=== PATIENT | male | born 1950 | race Asian ===

== ENCOUNTER 2022-04-30 16:35 | Emergency (ER) | payer MEDICARE, OTHER ==
--- NOTE | 2022-04-30 17:04 | ED Physician Documentation ---
PD HPI DYSPNEA - Stated complaint Stated Complaint: AMS - Chief complaint Chief Complaint: Neuro - History obtained from History obtained from: Patient, Family (spouse), EMS (The manager privacy report that the clinic told them they are concerned about the patient's low white cell count. They report normal vital signs on the scene and on route. No focal weakness.) - History of Present Illness Timing - onset: How many weeks ago (The patient states he has had general weakness for the last week or 2 with increasing amount. No focal weakness. He was seen a week ago in the clinic and had his losartan and another medicine discontinued. Patient believes there was a concern of kidney function. Seen again today for blood tests.) Timing - onset during: Light activity Timing - duration: Weeks (2) Timing - details: Gradual onset Inciting event(s): No: Out of meds, URI Improved by: Rest. No: Sitting up Worsened by: Exertion. No: Laying flat Associated symptoms: No: Fever, Cough, Wheezing, Bilateral edema Similar symptoms before: Has not had sx before Recently seen: Clinic (Seen at the [facility] a week ago and again today. Reportedly abnormal blood test. No labs or report were sent with the patient with the ambulance nor faxed to us.) Review of Systems Constitutional: denies: Fever, Chills Nose: denies: Rhinorrhea / runny nose, Congestion Throat: denies: Sore throat Cardiac: denies: Chest pain / pressure, Palpitations, Pedal edema Respiratory: reports: Dyspnea. denies: Cough GI: denies: Abdominal Pain, Bloody / black stool PD PAST MEDICAL HISTORY - Past Medical History Past Medical History: Yes Cardiovascular: CO (Patient states stents placed at [facility] approximately 3 months ago without complications. He has not had any chest pain or palpitations. He remains on medications and including Brillante.) Respiratory: None Neuro: None : Retention (needs home self cathing 3 times daily. ) - Past Surgical History Past Surgical History: Yes Cardiovascular: Coronary stent - Present Medications Home Medications: Ambulatory Orders Medication Instructions Recorded Confirmed Aspirin [Justice Aspirin] 81 mg PO DAILY 04/30/22 04/30/22 Atorvastatin [Lipitor] 20 mg PO HS 04/30/22 04/30/22 Fenofibrate Nanocrystallized 145 mg PO DAILY 04/30/22 04/30/22 [Tricor] Insulin Glargine,Hum.rec.anlog 26 units SUBQ DAILY 04/30/22 04/30/22 [Insulin Glargine Solostar] Metoprolol Succinate [Toprol Xl] 25 mg PO BID 04/30/22 04/30/22 Ticagrelor [Brilinta] 90 mg PO BID 04/30/22 04/30/22 cephALEXin [Keflex] 500 mg PO TID #20 cap 04/30/22 metFORMIN [Glucophage] 500 mg PO BID 04/30/22 04/30/22 - Social History Does the pt smoke?: No Smoking Status: Never smoker Does the pt drink ETOH?: No Does the pt have substance abuse?: No PD ED PE NORMAL - Vitals Vital signs reviewed: Yes - General General: Alert and oriented X 3, No acute distress, Well developed/nourished - Neck Neck: Supple, no meningeal sign, No adenopathy - Cardiac Cardiac: RRR, No murmur - Respiratory Respiratory: Clear bilaterally - Abdomen Abdomen: Soft, Non tender, Non distended - Derm Derm: Normal color, Warm and dry - Neuro Neuro: Alert and oriented X 3, No motor deficit, No sensory deficit, Normal speech Results - Vitals Vitals: Vital Signs - 24 hr 04/30/22 04/30/22 04/30/22 16:38 18:09 19:15 Heart Rate 91 88 87 Respiratory 18 14 15 Rate Blood Pressure 110/70 127/70 132/77 H O2 Saturation 100 100 100 Oxygen O2 Source Room air - Labs Labs: Laboratory Tests 04/30/22 04/30/22 04/30/22 17:13 17:13 17:13 WBC 15.8 H RBC 3.98 L Hgb 10.5 L Hct 32.4 L MCV 81.4 MCH 26.4 L MCHC 32.4 RDW 15.3 H Plt Count 412 MPV 10.6 Neut # (Auto) 13.3 H Lymph # (Auto) 1.1 L [place] # (Auto) 1.0 Eos # (Auto) 0.0 Baso # (Auto) 0.0 Absolute Nucleated RBC 0.00 Nucleated RBC % 0.0 Sodium 126 L Potassium 5.1 H Chloride 93 L Carbon Dioxide 23 Anion Gap 10.0 BUN 34 H Creatinine 1.1 Estimated GFR (MDRD) 66 L Glucose 82 Calcium 8.6 Magnesium 2.1 Total Bilirubin 1.3 H AST 27 ALT 17 Alkaline Phosphatase 57 B-Natriuretic Peptide 177 H Total Protein 7.1 Albumin 2.6 L Globulin 4.5 H Albumin/Globulin Ratio 0.6 L Lipase 55 H Urine Color Urine Clarity Urine pH Ur Specific [place] Urine Protein Urine Glucose (UA) Urine Ketones Urine Occult Blood Urine Nitrite Urine Bilirubin Urine Urobilinogen Ur Leukocyte Esterase Urine RBC Urine WBC Ur Squamous Epith Cells Urine Bacteria Ur Microscopic Review Urine Culture Comments Nasal Adenovirus (PCR) Nasal B. parapertussis DNA (PCR) Nasal Coronavir 229E PCR Nasal Coronavir HKU1 PCR Nasal Coronavir NL63 PCR Nasal Coronavir OC43 PCR Nasal Enterovir/Rhinovir PCR Nasal Influenza B PCR Nasal Influenza A PCR Nasal Parainfluen 1 PCR Nasal Parainfluen 2 PCR Nasal Parainfluen 3 PCR Nasal Parainfluen 4 PCR Nasal RSV (PCR) Nasal B.pertussis DNA PCR Nasal C.pneumoniae (PCR) Senait Human Metapneumo PCR Nasal M.pneumoniae (PCR) Nasal SARS-CoV-2 (PCR) Blood Type Blood Type Recheck Antibody Screen 04/30/22 04/30/22 04/30/22 17:13 17:35 17:35 WBC RBC Hgb Hct MCV MCH MCHC RDW Plt Count MPV Neut # (Auto) Lymph # (Auto) [place] # (Auto) Eos # (Auto) Baso # (Auto) Absolute Nucleated RBC Nucleated RBC % Sodium Potassium Chloride Carbon Dioxide Anion Gap BUN Creatinine Estimated GFR (MDRD) Glucose Calcium Magnesium Total Bilirubin AST ALT Alkaline Phosphatase B-Natriuretic Peptide Total Protein Albumin Globulin Albumin/Globulin Ratio Lipase Urine Color YELLOW Urine Clarity CLOUDY Urine pH 6.0 Ur Specific [place] 1.010 Urine Protein TRACE Urine Glucose (UA) NEGATIVE Urine Ketones NEGATIVE Urine Occult Blood TRACE-INTA Urine Nitrite NEGATIVE Urine Bilirubin NEGATIVE Urine Urobilinogen 4 H Ur Leukocyte Esterase MODERATE H Urine RBC 0-5 Urine WBC >25 H Ur Squamous Epith Cells NONE SEEN Urine Bacteria Many H Ur Microscopic Review INDICATED Urine Culture Comments INDICATED Nasal Adenovirus (PCR) NOT DETECTED Nasal B. parapertussis DNA (PCR) NOT DETECTED Nasal Coronavir 229E PCR NOT DETECTED Nasal Coronavir HKU1 PCR NOT DETECTED Nasal Coronavir NL63 PCR NOT DETECTED Nasal Coronavir OC43 PCR NOT DETECTED Nasal Enterovir/Rhinovir PCR NOT DETECTED Nasal Influenza B PCR NOT DETECTED Nasal Influenza A PCR NOT DETECTED Nasal Parainfluen 1 PCR NOT DETECTED Nasal Parainfluen 2 PCR NOT DETECTED Nasal Parainfluen 3 PCR NOT DETECTED Nasal Parainfluen 4 PCR NOT DETECTED Nasal RSV (PCR) NOT DETECTED Nasal B.pertussis DNA PCR NOT DETECTED Nasal C.pneumoniae (PCR) NOT DETECTED Senait Human Metapneumo PCR NOT DETECTED Nasal M.pneumoniae (PCR) NOT DETECTED Nasal SARS-CoV-2 (PCR) NOT DETECTED Blood Type A POSITIVE Blood Type Recheck Antibody Screen NEGATIVE 04/30/22 18:05 WBC RBC Hgb Hct MCV MCH MCHC RDW Plt Count MPV Neut # (Auto) Lymph # (Auto) [place] # (Auto) Eos # (Auto) Baso # (Auto) Absolute Nucleated RBC Nucleated RBC % Sodium Potassium Chloride Carbon Dioxide Anion Gap BUN Creatinine Estimated GFR (MDRD) Glucose Calcium Magnesium Total Bilirubin AST ALT Alkaline Phosphatase B-Natriuretic Peptide Total Protein Albumin Globulin Albumin/Globulin Ratio Lipase Urine Color Urine Clarity Urine pH Ur Specific [place] Urine Protein Urine Glucose (UA) Urine Ketones Urine Occult Blood Urine Nitrite Urine Bilirubin Urine Urobilinogen Ur Leukocyte Esterase Urine RBC Urine WBC Ur Squamous Epith Cells Urine Bacteria Ur Microscopic Review Urine Culture Comments Nasal Adenovirus (PCR) Nasal B. parapertussis DNA (PCR) Nasal Coronavir 229E PCR Nasal Coronavir HKU1 PCR Nasal Coronavir NL63 PCR Nasal Coronavir OC43 PCR Nasal Enterovir/Rhinovir PCR Nasal Influenza B PCR Nasal Influenza A PCR Nasal Parainfluen 1 PCR Nasal Parainfluen 2 PCR Nasal Parainfluen 3 PCR Nasal Parainfluen 4 PCR Nasal RSV (PCR) Nasal B.pertussis DNA PCR Nasal C.pneumoniae (PCR) Senait Human Metapneumo PCR Nasal M.pneumoniae (PCR) Nasal SARS-CoV-2 (PCR) Blood Type Blood Type Recheck A POSITIVE Antibody Screen PD Medical Decision Making - ED course Complexity details: considered differential (General weakness for 1 to 2 weeks. No stigmata of heart failure. Had some test done in the [facility] lab today and referred to the ER. They are now closed and did not send any labs with the patient. No knowing what the abnormalities are. They did not call.), d/w patient Reviewed Lab Results: ordered and reviewed the results of CBC, Chemistry, UA. Leukocytosis noted. Low sodium 126 could account for weakness. Unknown if chronic or not without baseline/trend labs. These are in [facility] database and not accessible right now. UA showing leuks and bacteria, and is cath specimen. Given his weakness, leukocytosis, and the UA, would Dx with UTI. Social Determinants of Health: He lives with , who is able to take care of him. Both he and prefer and want to go home. Departure - Departure Disposition: Home, Self Care Clinical Impression: UTI (urinary tract infection) with pyuria, Hyponatremia, Generalized weakness Leukocytosis, unspecified Qualifiers: Leukocytosis type: unspecified Qualified Code(s): D72.829 - Elevated white blood cell count, unspecified Condition: Stable Record reviewed to determine appropriate education?: Yes Follow-Up: DEEPA CALDERON MD [Primary Care Provider] - Prescriptions: cephALEXin [Keflex] 500 mg PO TID #20 cap Comments: Your blood tests have several minor abnormalities. I am not sure which is the one that the [facility] clinic was concerned about in particular as they did not send any paperwork or call ahead. The test here showed a mild anemia but not significant slightly enough to need treatment in particular. Your white count was elevated that may be suggestive of an infectious process. Your urine test does have some bacteria and white cells. This can be common enough in people who do catheterizations but given your symptoms, I would be concerned for a urinary tract infection. We can treat with cephalexin 3 times daily for a week for this. I sent the script to [facility] pharmacy. The urine culture should result in a couple of days normal call if we need to change the antibiotic choice based on it. Blood tests otherwise here showed somewhat low sodium of 126. This is not necessarily low enough to be too concerned. I do not have a comparison to know whether this is a more of a chronic finding or not. Stay well-hydrated. We did give you some IV fluids with saline (salt water) here that should help some. Otherwise for now continue the current medications you take. Remain off of the ones you had been discontinued last week. Follow-up with your primary care clinic on Tuesday or Tuesday to reevaluate how you are doing. Return to the ER if worsening general symptoms. Your viral panel no swab test has not resulted yet. We will call you with the results if any positives, if it has not resulted by the time you leave. It would not really change therapy at this point but could explain some general we akness if you had a viral illness as well. Discharge Date/Time: 04/30/22 19:29
[2022-04-30 17:20] LABS: BASOPHILS % (AUTO) 0.3 %; EOSINOPHILS % (AUTO) 0.3 %; HCT - HEMATOCRIT 32.4 % (42.0-52.0); HGB - HEMOGLOBIN 10.5 g/dL (14.0-18.0); LYMPHOCYTES # (AUTO) 1.1 10^3/uL (1.5-3.5); MEAN CORPUSCULAR HEMOGLOBIN 26.4 pg (27.0-31.0); MEAN CORPUSCULAR HGB CONC 32.4 g/dL (32.0-36.0); MEAN CORPUSCULAR VOLUME 81.4 fL (80.0-94.0); MEAN PLATELET VOLUME 10.6 fL (7.4-11.4); MONOCYTES % (AUTO) 6.4 %; NEUTROPHILS # (AUTO) 13.3 10^3/uL (1.5-6.6); NEUTROPHILS % (AUTO) 84.5 %; PLT - PLATELET COUNT 412 10^3/uL (130-450); RED BLOOD COUNT 3.98 10^6/uL (4.70-6.10); RED CELL DISTRIBUTION WIDTH 15.3 % (12.0-15.0); WHITE BLOOD COUNT 15.8 x10^3/uL (4.8-10.8)
[2022-04-30 17:34] LABS: ALBUMIN 2.6 g/dL (3.2-5.5); ALBUMIN/GLOBULIN RATIO 0.6 (1.0-2.2); BILIRUBIN,TOTAL 1.3 mg/dL (0.2-1.0); CALCIUM 8.6 mg/dL (8.5-10.3); CREATININE 1.1 mg/dL (0.6-1.2); MAGNESIUM 2.1 mg/dL (1.7-2.8); POTASSIUM 5.1 mmol/L (3.5-5.0); TOTAL PROTEIN 7.1 g/dL (6.7-8.2)
[2022-04-30] MEDS ORDERED: SODIUM CHLORIDE 0.9% 1,000 ML IV STA (17:40)
[2022-04-30 18:07] LABS: BILIRUBIN,URINE NEGATIVE (NEGATIVE); GLUCOSE, URINE (UA) NEGATIVE (NEGATIVE); KETONES,URINE (UA) NEGATIVE (NEGATIVE); LEUKOCYTE ESTERASE, URINE MODERATE (NEGATIVE); NITRITE,URINE NEGATIVE (NEGATIVE); OCCULT BLOOD,URINE TRACE-INTA (NEGATIVE); PROTEIN,URINE TRACE mg/dL (NEGATIVE); UROBILINOGEN,URINE 4 E.U./dL (NORMAL)
--- OUTSIDE RECORDS SUMMARY | 2022-04-30 18:11 | EXTERNAL MEDICAL SUMMARY RPT | Continuity of Care Document ---
:1950 Author Organization [facility] Address [address] [place] [address] Phone Allergies and Intolerances date description facility type (no date) Penicillins [facility] (unknown) (no date) levofloxacin [facility] (unknown) Encounters No information. Functional Status No information. Immunizations No information. Medications No information. Problems date description facility 2022-01-31 23:31 Sepsis, unspecified organism [facility] 2022-01-31 23:36 Sepsis, unspecified organism [facility] 2022-01-31 23:37 Sepsis, unspecified organism [facility] 2022-01-31 23:39 Sepsis, unspecified organism [facility] 2022-02-01 00:30 Sepsis, unspecified organism [facility] 2022-02-01 07:44 Sepsis, unspecified organism [facility] 2022-02-01 10:47 Sepsis, unspecified organism [facility] 2022-02-01 10:58 Sepsis, unspecified organism [facility] 2022-02-01 13:53 Sepsis, unspecified organism [facility] 2022-02-01 13:54 Sepsis, unspecified organism [facility] 2022-02-01 18:07 Sepsis, unspecified organism [facility] spital Procedures No information. Results/Labs test date author facility value unit interpret ation Result panel 1 (unknown) (no date) (unknown) (unknown) (no value) (units (un known) unknown) (unknown) (no date) (unknown) (unknown) 01/31/22 (units (unkn own) unknown) (unknown) (no date) (unknown) (unknown) [id number]units ([address] nown) [address] unknown) (unknown) (no date) (unknown) (unknown) Accession (units (unk nown) Number: unknown) [id number] (unknown) (no date) (unknown) (unknown) Age/Sex: 71 / (units (unknown) M Date of unknown) Service: (unknown) (no date) (unknown) (unknown) [place], [place] (units (unknown) [id number] unknown) (unknown) (no date) (unknown) (unknown) Approved by: (units ( unknown) roberto carlos Andino) Jody on 01/31/2022 at 20:08 (unknown) (no date) (unknown) (unknown) Bones and (units (unk nown) chest wall: No unknown) suspicious bony abnormalities. Soft tissues appear (unknown) (no date) (unknown) (unknown) COMPARISON: (units (u nknown) None. unknown) (unknown) (no date) (unknown) (unknown) : (units (unkn own) 1950 unknown) Acct:[id number] (unknown) (no date) (unknown) (unknown) Dictated by: (units ( unknown) Dwayne Meadows unknown) Jody on 01/31/2022 at 20:08 (unknown) (no date) (unknown) (unknown) FINDINGS: (units (unk nown) unknown) (unknown) (no date) (unknown) (unknown) IMPRESSION: (units (u nknown) Reduced unknown) inspiratory volume, no acute disease when this factor is (unknown) (no date) (unknown) (unknown) INDICATIONS: (units ( unknown) shortness of unknown) breath (unknown) (no date) (unknown) (unknown) [facility]) (unknown) (no date) (unknown) (unknown) Loc: ED (units (unkn own) unknown) (unknown) (no date) (unknown) (unknown) Lungs and (units (unk nown) pleura: Lungs unknown) are clear. No pleural effusions or pneumothorax. (unknown) (no date) (unknown) (unknown) [id number] (units (un known) unknown) (unknown) (no date) (unknown) (unknown) Mediastinum: (units ( unknown) Mediastinal unknown) contours are normal. Heart size is normal. (unknown) (no date) (unknown) (unknown) Ordering (units (unkn own) Provider: unknown) Kyleigh Castellanos MD (unknown) (no date) (unknown) (unknown) PROCEDURE: XR (units (unknown) CHEST 2V unknown) (unknown) (no date) (unknown) (unknown) Patient: (units (unkn own) Josh Padilla unknown) omar Jones MR#: (unknown) (no date) (unknown) (unknown) Procedure: XR (units (unknown) chest 2V unknown) (unknown) (no date) (unknown) (unknown) Signed (units (unkn own) unknown) (unknown) (no date) (unknown) (unknown) Surgical (units (unkn own) changes and unknown) devices: None. (unknown) (no date) (unknown) (unknown) TECHNIQUE: 2 (units ( unknown) views of the unknown) chest were acquired. (unknown) (no date) (unknown) (unknown) XRay Report (units (u nknown) unknown) (unknown) (no date) (unknown) (unknown) account. (units (unkn own) unknown) (unknown) (no date) (unknown) (unknown) taken into (units (un known) unknown) (unknown) (no date) (unknown) (unknown) unremarkable. (units (unknown) unknown) Result panel 2 (unknown) (no (unknown) (unknown) (no value) (units (unk nown) date) unknown) (unknown) (no (unknown) (unknown) 01/31/22 (units (unkno wn) date) unknown) (unknown) (no (unknown) (unknown) [address] [place] [address] (units (unknown) date) unknown) (unknown) (no (unknown) (unknown) ABDOMEN: (units (unkno wn) date) unknown) (unknown) (no (unknown) (unknown) Abdominal Nodes: (units (unknown) date) No retroperitoneal unknown) or mesenteric adenopathy by size criteria. (unknown) (no (unknown) (unknown) Accession Number: (units (unknown) date) [id number] unknown) (unknown) (no (unknown) (unknown) Adrenal Glands: (units (unknown) date) Unremarkable. unknown) (unknown) (no (unknown) (unknown) After the (units (unkn own) date) administration of unknown) intravenous contrast, axial sections acquired from (unknown) (no (unknown) (unknown) Age/Sex: 71 / M (units (unknown) date) Date of Service: unknown) (unknown) (no (unknown) (unknown) [place], [place] (units ( unknown) date) [id number] unknown) (unknown) (no (unknown) (unknown) Approved by: (units (u nknown) date) paola Andino M.D. on 01/31/2022 at 21:25 (unknown) (no (unknown) (unknown) Biliary ducts: (units (unknown) date) Unremarkable. unknown) (unknown) (no (unknown) (unknown) Bladder: (units (unkno wn) date) Unremarkable. unknown) (unknown) (no (unknown) (unknown) Bones: (units (unkno wn) date) Unremarkable. unknown) (unknown) (no (unknown) (unknown) COMPARISON: (units (un known) date) [facility], unknown) CT, CT ABDOMEN PELVIS W CON, 07/05/2019, 14:09. 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 unknown) (unknown) (no (unknown) (unknown) Heart: No (units (unkn own) date) significant unknown) findings. (unknown) (no (unknown) (unknown) Hospital, CT, CT (units (unknown) date) ABDOMEN PELVIS W unknown) CON, 01/27/2018, 13:08. (unknown) (no (unknown) (unknown) IMPRESSION: No (units (unknown) date) abscess found, no unknown) evidence of colitis or diverticulitis, or (unknown) (no (unknown) (unknown) INDICATIONS: abd (units (unknown) date) pain, fever, unknown) developing sepsis (unknown) (no (unknown) (unknown) Image quality: (units (unknown) date) Excellent. unknown) (unknown) (no (unknown) (unknown) [facility] (units (unknown) date) unknown) (unknown) (no (unknown) (unknown) War (units (unkno wn) date) unknown) (unknown) (no (unknown) (unknown) Kidneys and (units (un known) date) Ureters: 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 (unknown) (no (unknown) (unknown) Liver: (units (unkno wn) date) Unremarkable. unknown) (unknown) (no (unknown) (unknown) Loc: ED (units (unkno wn) date) unknown) (unknown) (no (unknown) (unknown) Lung bases: (units (un known) date) Unremarkable. unknown) (unknown) (no (unknown) (unknown) [id number] (units (unk nown) date) unknown) (unknown) (no (unknown) (unknown) Miscellaneous: No (units (unknown) date) hernias are seen. unknown) (unknown) (no (unknown) (unknown) Ordering (units (unkno wn) date) Provider: unknown) Kyleigh Castellanos MD (unknown) (no (unknown) (unknown) PELVIS: (units (unkno wn) date) unknown) (unknown) (no (unknown) (unknown) PROCEDURE: CT (units ( unknown) date) ABDOMEN PELVIS W unknown) CON (unknown) (no (unknown) (unknown) Pancreas: (units (unkn own) date) Unremarkable. unknown) (unknown) (no (unknown) (unknown) Patient: (units (unkno wn) date) [place] unknown) MR#: (unknown) (no (unknown) (unknown) Pelvic Nodes: No (units (unknown) date) enlarged lymph unknown) nodes. (unknown) (no (unknown) (unknown) Pelvic Organs: (units (unknown) date) Unremarkable. unknown) (unknown) (no (unknown) (unknown) Peritoneum: No (units (unknown) date) abnormal unknown) intraperitoneal fluid. No free air. (unknown) (no (unknown) (unknown) Procedure: CT (units ( unknown) date) abdomen pelvis w unknown) con (unknown) (no (unknown) (unknown) Signed (units (unkno wn) date) unknown) (unknown) (no (unknown) (unknown) Spleen: (units (unkno wn) date) Unremarkable. unknown) (unknown) (no (unknown) (unknown) Stomach and (units (un known) date) Bowel: Stomach, unknown) small bowel loops, and colon are unremarkable. (unknown) (no (unknown) (unknown) TECHNIQUE: (units (unk nown) date) unknown) (unknown) (no (unknown) (unknown) The left (units (unkno wn) date) unknown) (unknown) (no (unknown) (unknown) Ventral Wall: No (units (unknown) date) hernias. unknown) (unknown) (no (unknown) (unknown) Vessels: Aorta (units (unknown) date) and inferior vena unknown) cava are normal in size. (unknown) (no (unknown) (unknown) adjustment (units (unk nown) date) unknown) (unknown) (no (unknown) (unknown) and a slight (units (u nknown) date) unknown) (unknown) (no (unknown) (unknown) appendicitis. (units ( unknown) date) unknown) (unknown) (no (unknown) (unknown) bases to the (units (u nknown) date) pubic symphysis. unknown) Coronal and sagittal reformats were performed. (unknown) (no (unknown) (unknown) collecting (units (unk nown) date) unknown) (unknown) (no (unknown) (unknown) degree Mya renal (units (unknown) date) edema. A urinary unknown) tract stone, is not seen on the left. (unknown) (no (unknown) (unknown) hydronephrosis or (units (unknown) date) unknown) (unknown) (no (unknown) (unknown) is not (units (unkno wn) date) unknown) (unknown) (no (unknown) (unknown) kidney (units (unkno wn) date) demonstrates unknown) slight prominence of the central renal collecting system (unknown) (no (unknown) (unknown) of mA and/or kV (units (unknown) date) according to unknown) patient size. (unknown) (no (unknown) (unknown) pigtail (units (unkno wn) date) unknown) (unknown) (no (unknown) (unknown) radiation dose (units (unknown) date) reduction, the unknown) following was used: automated exposure control, (unknown) (no (unknown) (unknown) retained (units (unkno wn) date) calculus. On the unknown) left there is mild prominence of the central renal (unknown) (no (unknown) (unknown) right ureteral (units (unknown) date) stent. There is no unknown) right-sided hydronephrosis or hydroureter. (unknown) (no (unknown) (unknown) seen. (units (unkno wn) date) unknown) (unknown) (no (unknown) (unknown) system but an (units ( unknown) date) obstructive unknown) urinary tract stone more distally within the ureter (unknown) (no (unknown) (unknown) the lung (units (unkno wn) date) unknown) Result panel 3 (unknown) (no date) (unknown) (unknown) 0.2 e.u./dl (unkn own) (unknown) (no date) (unknown) (unknown) 1 (units (unkn own) unknown) (unknown) (no date) (unknown) (unknown) 1.010 (units (unkn own) unknown) (unknown) (no date) (unknown) (unknown) 13.3 g/dl (unkn own) (unknown) (no date) (unknown) (unknown) 14.0 % (unkn own) (unknown) (no date) (unknown) (unknown) 156 x10 3/ul (unkn own) (unknown) (no date) (unknown) (unknown) 2 (units (unkn own) unknown) (unknown) (no date) (unknown) (unknown) 28.5 pg (unkn own) (unknown) (no date) (unknown) (unknown) 29.1 x10 3/ul (unkn own) (unknown) (no date) (unknown) (unknown) 34.8 % (unkn own) (unknown) (no date) (unknown) (unknown) 38.2 % (unkn own) (unknown) (no date) (unknown) (unknown) 4.66 x10 6/ul (unkn own) (unknown) (no date) (unknown) (unknown) 5.0 (units (unkn own) unknown) (unknown) (no date) (unknown) (unknown) 81.8 fl (unkn own) (unknown) (no date) (unknown) (unknown) NEGATIVE (units (unkn own) unknown) (unknown) (no date) (unknown) (unknown) NEGATIVE g/dl (unkn own) (unknown) (no date) (unknown) (unknown) SL CLOUDY (units (unk nown) unknown) (unknown) (no date) (unknown) (unknown) YELLOW (units (unkn own) unknown) (unknown) (no date) (unknown) (unknown) YELLOW (units (unkn own) unknown) Result panel 4 (unknown) (no date) (unknown) (unknown) 0-1/HPF (units (unkn own) unknown) (unknown) (no date) (unknown) (unknown) 0.2 e.u./dl (unkn own) (unknown) (no date) (unknown) (unknown) 1 (units (unkn own) unknown) (unknown) (no date) (unknown) (unknown) 1.010 (units (unkn own) unknown) (unknown) (no date) (unknown) (unknown) 2 (units (unkn own) unknown) (unknown) (no date) (unknown) (unknown) 30-100/HPF (units (un known) unknown) (unknown) (no date) (unknown) (unknown) 5.0 (units (unkn own) unknown) (unknown) (no date) (unknown) (unknown) Many (>30) (units (un known) unknown) (unknown) (no date) (unknown) (unknown) NEGATIVE (units (unkn own) unknown) (unknown) (no date) (unknown) (unknown) NEGATIVE g/dl (unkn own) (unknown) (no date) (unknown) (unknown) None Seen (units (unk nown) unknown) (unknown) (no date) (unknown) (unknown) SL CLOUDY (units (unk nown) unknown) (unknown) (no date) (unknown) (unknown) Specimen (units (unkn own) Cultured unknown) (unknown) (no date) (unknown) (unknown) YELLOW (units (unkn own) unknown) (unknown) (no date) (unknown) (unknown) YELLOW (units (unkn own) unknown) Result panel 5 (unknown) (no date) (unknown) (unknown) 1.2 (units (unkn own) unknown) (unknown) (no date) (unknown) (unknown) 1.60 mg/dl (unkn own) (unknown) (no date) (unknown) (unknown) 13.8 (units (unkn own) unknown) (unknown) (no date) (unknown) (unknown) 135 mmol/l (unkn own) (unknown) (no date) (unknown) (unknown) 16 iu/l (unkn own) (unknown) (no date) (unknown) (unknown) 2.2 mg/dl (unkn own) (unknown) (no date) (unknown) (unknown) 22 mg/dl (unkn own) (unknown) (no date) (unknown) (unknown) 23 mmol/l (unkn own) (unknown) (no date) (unknown) (unknown) 262 mg/dl (unkn own) (unknown) (no date) (unknown) (unknown) 262 mg/dl (unkn own) (unknown) (no date) (unknown) (unknown) 3.0 mmol/l (unkn own) (unknown) (no date) (unknown) (unknown) 3.4 g/dl (unkn own) (unknown) (no date) (unknown) (unknown) 3.6 mmol/l (unkn own) (unknown) (no date) (unknown) (unknown) 31 iu/l (unkn own) (unknown) (no date) (unknown) (unknown) 31 seconds (unkn own) (unknown) (no date) (unknown) (unknown) 31 seconds (unkn own) (unknown) (no date) (unknown) (unknown) 4.2 g/dl (unkn own) (unknown) (no date) (unknown) (unknown) 45 ml/min (unkn own) (unknown) (no date) (unknown) (unknown) 45 ml/min (unkn own) (unknown) (no date) (unknown) (unknown) 59 u/l (unkn own) (unknown) (no date) (unknown) (unknown) 66 u/l (unkn own) (unknown) (no date) (unknown) (unknown) 7.6 g/dl (unkn own) (unknown) (no date) (unknown) (unknown) 8.1 mg/dl (unkn own) (unknown) (no date) (unknown) (unknown) 96 mmol/l (unkn own) (unknown) (no date) (unknown) (unknown) Test not % (unkn own) performed (unknown) (no date) (unknown) (unknown) Test not % (unkn own) performed (unknown) (no date) (unknown) (unknown) Test not ng/ml (unkn own) performed (unknown) (no date) (unknown) (unknown) Test not ng/ml (unkn own) performed Result panel 6 (unknown) (no date) (unknown) (unknown) 1.6 (units unknown) (unknown) (unknown) (no date) (unknown) (unknown) 18.9 seconds (unkn own) (unknown) (no date) (unknown) (unknown) 821 ng/ml (unkn own) (unknown) (no date) (unknown) (unknown) 821 ng/ml (unkn own) Result panel 7 (unknown) (no date) (unknown) (unknown) 4.70 ng/ml (unkn own) (unknown) (no date) (unknown) (unknown) 4.70 ng/ml (unkn own) (unknown) (no date) (unknown) (unknown) 59 u/l (unkn own) (unknown) (no date) (unknown) (unknown) Test not % (unkn own) performed (unknown) (no date) (unknown) (unknown) Test not % (unkn own) performed (unknown) (no date) (unknown) (unknown) Test not ng/ml (unkn own) performed (unknown) (no date) (unknown) (unknown) Test not ng/ml (unkn own) performed Result panel 8 (unknown) (no date) (unknown) (unknown) 0.924 ng/ml (unkn own) (unknown) (no date) (unknown) (unknown) 0.924 ng/ml (unkn own) (unknown) (no date) (unknown) (unknown) 4.70 ng/ml (unkn own) (unknown) (no date) (unknown) (unknown) 4.70 ng/ml (unkn own) (unknown) (no date) (unknown) (unknown) 59 u/l (unkn own) (unknown) (no date) (unknown) (unknown) Test not % (unkn own) performed (unknown) (no date) (unknown) (unknown) Test not % (unkn own) performed (unknown) (no date) (unknown) (unknown) Test not ng/ml (unkn own) performed (unknown) (no date) (unknown) (unknown) Test not ng/ml (unkn own) performed Result panel 9 (unknown) (no date) (unknown) (unknown) 1 (units (unkn own) unknown) (unknown) (no date) (unknown) (unknown) 1.0 % (unkn own) (unknown) (no date) (unknown) (unknown) 100 (units (unkn own) unknown) (unknown) (no date) (unknown) (unknown) 12.0 % (unkn own) (unknown) (no date) (unknown) (unknown) 13.3 g/dl (unkn own) (unknown) (no date) (unknown) (unknown) 14.0 % (unkn own) (unknown) (no date) (unknown) (unknown) 156 x10 3/ul (unkn own) (unknown) (no date) (unknown) (unknown) 13057 /ul (unkn own) (unknown) (no date) (unknown) (unknown) 28.5 pg (unkn own) (unknown) (no date) (unknown) (unknown) 29.1 x10 3/ul (unkn own) (unknown) (no date) (unknown) (unknown) 34.8 % (unkn own) (unknown) (no date) (unknown) (unknown) 38.2 % (unkn own) (unknown) (no date) (unknown) (unknown) 4.66 x10 6/ul (unkn own) (unknown) (no date) (unknown) (unknown) 5.0 % (unkn own) (unknown) (no date) (unknown) (unknown) 81.8 fl (unkn own) (unknown) (no date) (unknown) (unknown) 82.0 % (unkn own) (unknown) (no date) (unknown) (unknown) See Below (units (unk nown) unknown) Result panel 10 (unknown) (no (unknown) (unknown) (no value) (units (unk nown) date) unknown) (unknown) (no (unknown) (unknown) ([place] BCise) (units (unknown) date) unknown) (unknown) (no (unknown) (unknown) 0.4 mg PO DAILY (units (unknown) date) Qty: 60 0RF unknown) (unknown) (no (unknown) (unknown) 10 mg PO DAILY (units (unknown) date) unknown) (unknown) (no (unknown) (unknown) 01/31/22 01/31/22 (units (unknown) date) 01/31/22 unknown) Range/Units (unknown) (no (unknown) (unknown) 01/31/22 19:24 (units (unknown) date) unknown) (unknown) (no (unknown) (unknown) 01/31/22 20:00 (units (unknown) date) unknown) (unknown) (no (unknown) (unknown) 01/31/22 20:02 (units (unknown) date) unknown) (unknown) (no (unknown) (unknown) 01/31/22 20:03 (units (unknown) date) unknown) (unknown) (no (unknown) (unknown) 01/31/22 20:14 (units (unknown) date) unknown) (unknown) (no (unknown) (unknown) 01/31/22 20:28 (units (unknown) date) unknown) (unknown) (no (unknown) (unknown) 01/31/22 (units (unkno wn) date) Range/Units unknown) (unknown) (no (unknown) (unknown) 01/31/22 (units (unkno wn) date) unknown) (unknown) (no (unknown) (unknown) 100 mg PO DAILY (units (unknown) date) unknown) (unknown) (no (unknown) (unknown) 145 mg PO DAILY (units (unknown) date) unknown) (unknown) (no (unknown) (unknown) 19:06 01/31/22 (units (unknown) date) unknown) (unknown) (no (unknown) (unknown) 19:19 01/31/22 (units (unknown) date) unknown) (unknown) (no (unknown) (unknown) 19:20 01/31/22 (units (unknown) date) unknown) (unknown) (no (unknown) (unknown) 19:20 (units (unkno wn) date) unknown) (unknown) (no (unknown) (unknown) 19:30 01/31/22 (units (unknown) date) unknown) (unknown) (no (unknown) (unknown) 19:30 (units (unkno wn) date) unknown) (unknown) (no (unknown) (unknown) 2 mg SUBCUT QWEEK (units (unknown) date) unknown) (unknown) (no (unknown) (unknown) 20:00 01/31/22 (units (unknown) date) unknown) (unknown) (no (unknown) (unknown) 20:00 20:00 20:00 (units (unknown) date) unknown) (unknown) (no (unknown) (unknown) 20:14 (units (unkno wn) date) unknown) (unknown) (no (unknown) (unknown) 20:30 01/31/22 (units (unknown) date) unknown) (unknown) (no (unknown) (unknown) 20:30 (units (unkno wn) date) unknown) (unknown) (no (unknown) (unknown) 20:45 01/31/22 (units (unknown) date) unknown) (unknown) (no (unknown) (unknown) 21:07 (units (unkno wn) date) unknown) (unknown) (no (unknown) (unknown) 21:11 01/31/22 (units (unknown) date) unknown) (unknown) (no (unknown) (unknown) 21:11 (units (unkno wn) date) unknown) (unknown) (no (unknown) (unknown) 26 units subcut (units (unknown) date) DAILY unknown) (unknown) (no (unknown) (unknown) 40 mg PO DAILY (units (unknown) date) unknown) (unknown) (no (unknown) (unknown) 5 mg PO Q4H PRN (units (unknown) date) (Reason: pain) Qty: unknown) 14 0RF (unknown) (no (unknown) (unknown) 50 mg PO DAILY (units (unknown) date) unknown) (unknown) (no (unknown) (unknown) 500 mg PO BID (units ( unknown) date) unknown) (unknown) (no (unknown) (unknown) 71-year-old (units (un known) date) gentleman with unknown) history of hypertension, type 2 diabetes, (unknown) (no (unknown) (unknown) ? 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 (unknown) (no (unknown) (unknown) ABDOMEN: (units (unkno wn) date) unknown) (unknown) (no (unknown) (unknown) ALT (<50) IU/L (units (unknown) date) unknown) (unknown) (no (unknown) (unknown) ALT 16 (<50) IU/L (units (unknown) date) unknown) (unknown) (no (unknown) (unknown) APTT (26-36) (units (u nknown) date) SECONDS unknown) (unknown) (no (unknown) (unknown) APTT 31 (26-36) (units (unknown) date) SECONDS unknown) (unknown) (no (unknown) (unknown) AST (17-59) IU/L (units (unknown) date) unknown) (unknown) (no (unknown) (unknown) AST 31 (17-59) (units (unknown) date) IU/L unknown) (unknown) (no (unknown) (unknown) Abdomen: Mild (units ( unknown) date) distention, diffuse unknown) abdominal pain without rebound or guarding, (unknown) (no (unknown) (unknown) Abdominal Nodes:? (units (unknown) date) No retroperitoneal unknown) or mesenteric adenopathy by size criteria.? (unknown) (no (unknown) (unknown) Acetaminophen (units ( unknown) date) (Acetaminophen 325 unknown) Mg Tablet) 975 mg PO NOW ONE (unknown) (no (unknown) (unknown) Admin: 01/31/22 (units (unknown) date) 20:13 Dose: 200 unknown) mls/hr (unknown) (no (unknown) (unknown) Adrenal Glands:? (units (unknown) date) Unremarkable.? ? unknown) (unknown) (no (unknown) (unknown) Age/Sex: 71 / M (units (unknown) date) unknown) (unknown) (no (unknown) (unknown) Albumin (3.5-5.0) (units (unknown) date) g/dL unknown) (unknown) (no (unknown) (unknown) Albumin 4.2 (units (un known) date) (3.5-5.0) g/dL unknown) (unknown) (no (unknown) (unknown) Albumin/Globulin (units (unknown) date) Ratio (1.0-2.8) unknown) (unknown) (no (unknown) (unknown) Albumin/Globulin (units (unknown) date) Ratio 1.2 (1.0-2.8) unknown) (unknown) (no (unknown) (unknown) Alkaline (units (unkno wn) date) Phosphatase unknown) (38-126) U/L (unknown) (no (unknown) (unknown) Alkaline (units (unkno wn) date) Phosphatase 66 unknown) (38-126) U/L (unknown) (no (unknown) (unknown) Allergies (units (unkn own) date) unknown) (unknown) (no (unknown) (unknown) Allergy/AdvReac (units (unknown) date) Type Severity unknown) Reaction Status Date / Time (unknown) (no (unknown) (unknown) Anisocytosis 1+ H (units (unknown) date) unknown) (unknown) (no (unknown) (unknown) Anisocytosis (units (u nknown) date) unknown) (unknown) (no (unknown) (unknown) BUN (9-20) mg/dL (units (unknown) date) unknown) (unknown) (no (unknown) (unknown) BUN 22 H (9-20) (units (unknown) date) mg/dL unknown) (unknown) (no (unknown) (unknown) BUN/Creatinine (units (unknown) date) Ratio (6-22) unknown) (unknown) (no (unknown) (unknown) BUN/Creatinine (units (unknown) date) Ratio 13.8 (6-22) unknown) (unknown) (no (unknown) (unknown) Band Neutrophils % (units (unknown) date) (3-7) % unknown) (unknown) (no (unknown) (unknown) Band Neutrophils % (units (unknown) date) 12.0 H (3-7) % unknown) (unknown) (no (unknown) (unknown) Baso # (Auto) Not (units (unknown) date) Reportable unknown) (unknown) (no (unknown) (unknown) Baso # (Auto) (units ( unknown) date) unknown) (unknown) (no (unknown) (unknown) Baso % (Auto) Not (units (unknown) date) Reportable unknown) (unknown) (no (unknown) (unknown) Baso % (Auto) (units ( unknown) date) unknown) (unknown) (no (unknown) (unknown) Bedside Urine (units ( unknown) date) Bilirubin - unknown) Negative (unknown) (no (unknown) (unknown) Bedside Urine (units ( unknown) date) Glucose Negative unknown) (unknown) (no (unknown) (unknown) Bedside Urine (units ( unknown) date) Ketone - Negative unknown) (unknown) (no (unknown) (unknown) Bedside Urine (units ( unknown) date) Leukocytes + 70 unknown) (unknown) (no (unknown) (unknown) Bedside Urine (units ( unknown) date) Nitrite - Negative unknown) (unknown) (no (unknown) (unknown) Bedside Urine (units ( unknown) date) Occult Blood +/ unknown) (unknown) (no (unknown) (unknown) Bedside Urine (units ( unknown) date) Protein + 30 unknown) (unknown) (no (unknown) (unknown) Bedside Urine (units ( unknown) date) Urobilinogen - unknown) Negative (unknown) (no (unknown) (unknown) Bedside Urine pH 6 (units (unknown) date) unknown) (unknown) (no (unknown) (unknown) Biliary ducts:? (units (unknown) date) Unremarkable.? ? unknown) (unknown) (no (unknown) (unknown) Bladder:? (units (unkn own) date) Unremarkable.? ? unknown) (unknown) (no (unknown) (unknown) Blood Culture Stat (units (unknown) date) unknown) (unknown) (no (unknown) (unknown) Blood Pressure (units (unknown) date) 127/80 unknown) (unknown) (no (unknown) (unknown) Blood Pressure (units (unknown) date) 132/79 unknown) (unknown) (no (unknown) (unknown) Blood Pressure (units (unknown) date) 134/75 10 unknown) 19:06 (unknown) (no (unknown) (unknown) Blood Pressure (units (unknown) date) 134/75 139/80 unknown) (unknown) (no (unknown) (unknown) Blood Pressure (units (unknown) date) 136/78 unknown) (unknown) (no (unknown) (unknown) Blood Pressure (units (unknown) date) 137/76 unknown) (unknown) (no (unknown) (unknown) Bones and chest (units (unknown) date) wall:? No unknown) suspicious bony abnormalities.? Soft tissues appear (unknown) (no (unknown) (unknown) Bones:? (units (unkno wn) date) Unremarkable.? ? unknown) (unknown) (no (unknown) (unknown) Bydureon BCise 2 (units (unknown) date) mg/0.85 mL unknown) auto-injector (unknown) (no (unknown) (unknown) CK-MB (CK-2) Rel (units (unknown) date) Index TNP unknown) (unknown) (no (unknown) (unknown) CK-MB (CK-2) Rel (units (unknown) date) Index unknown) (unknown) (no (unknown) (unknown) CK-MB (CK-2) TNP (units (unknown) date) unknown) (unknown) (no (unknown) (unknown) CK-MB (CK-2) (units (u nknown) date) unknown) (unknown) (no (unknown) (unknown) CT abdomen pelvis (units (unknown) date) w con Stat unknown) (unknown) (no (unknown) (unknown) CT scan - (units (unkn own) date) abdomen/pelvis: unknown) (unknown) (no (unknown) (unknown) Calcium (8.4-10.2) (units (unknown) date) mg/dL unknown) (unknown) (no (unknown) (unknown) Calcium 8.1 L (units ( unknown) date) (8.4-10.2) mg/dL unknown) (unknown) (no (unknown) (unknown) Carbon Dioxide (units (unknown) date) (22-32) mmol/L unknown) (unknown) (no (unknown) (unknown) Carbon Dioxide 23 (units (unknown) date) (22-32) mmol/L unknown) (unknown) (no (unknown) (unknown) Cardiac: (units (unkno wn) date) Tachycardic without unknown) murmurs (unknown) (no (unknown) (unknown) Ceftriaxone Sodium (units (unknown) date) 2,000 mg/ (Sodium unknown) Chloride) 100 mls @ 200 mls/hr IV NOW ONE (unknown) (no (unknown) (unknown) Chest x-ray: (units (u nknown) date) unknown) (unknown) (no (unknown) (unknown) Chief complaint: (units (unknown) date) Abdominal Pain unknown) (unknown) (no (unknown) (unknown) Chloride (98-107) (units (unknown) date) mmol/L unknown) (unknown) (no (unknown) (unknown) Chloride 96 L (units ( unknown) date) (98-107) mmol/L unknown) (unknown) (no (unknown) (unknown) Jillian Rosales, (units (unknown) date) [Primary Care unknown) Provider] (unknown) (no (unknown) (unknown) Complete Blood (units (unknown) date) Count AUTO DIFF unknown) Stat (unknown) (no (unknown) (unknown) Comprehensive (units ( unknown) date) Metabolic Panel unknown) Stat (unknown) (no (unknown) (unknown) Course (units (unkno wn) date) unknown) (unknown) (no (unknown) (unknown) Creatinine (units (unk nown) date) (0.66-1.25) mg/dL unknown) (unknown) (no (unknown) (unknown) Creatinine 1.60 H (units (unknown) date) (0.66-1.25) mg/dL unknown) (unknown) (no (unknown) (unknown) D Dimer Stat (units (u nknown) date) unknown) (unknown) (no (unknown) (unknown) D-Dimer (<500) (units (unknown) date) ng/ml unknown) (unknown) (no (unknown) (unknown) D-Dimer 821 H (units ( unknown) date) (<500) ng/ml unknown) (unknown) (no (unknown) (unknown) : 1950 (units (unknown) date) Acct:[id number] unknown) (unknown) (no (unknown) (unknown) Date of Service: (units (unknown) date) 01/31/22 unknown) (unknown) (no (unknown) (unknown) Departure (units (unkn own) date) unknown) (unknown) (no (unknown) (unknown) Dictated by: Dwayne (units (unknown) date) Jody Meadows on unknown) 01/31/2022 at 20:08 ? ? (unknown) (no (unknown) (unknown) Dictated by: Dwayne (units (unknown) date) Jody Meadows on unknown) 01/31/2022 at 21:21 ? ? (unknown) (no (unknown) (unknown) Discharge Plan (units (unknown) date) unknown) (unknown) (no (unknown) (unknown) Discontinued (units (u nknown) date) Medications unknown) (unknown) (no (unknown) (unknown) Documented By: NR (units (unknown) date) unknown) (unknown) (no (unknown) (unknown) ECG Data (units (unkno wn) date) unknown) (unknown) (no (unknown) (unknown) ED Orders (units (unkn own) date) unknown) (unknown) (no (unknown) (unknown) EKG-12 Lead Stat (units (unknown) date) unknown) (unknown) (no (unknown) (unknown) ER Physician: (units ( unknown) date) Kyleigh Castellanos MD unknown) (unknown) (no (unknown) (unknown) Emergency Report (units (unknown) date) unknown) (unknown) (no (unknown) (unknown) Eos % (Auto) Not (units (unknown) date) Reportable unknown) (unknown) (no (unknown) (unknown) Eos % (Auto) (units (u nknown) date) unknown) (unknown) (no (unknown) (unknown) Esterase (units (unkno wn) date) unknown) (unknown) (no (unknown) (unknown) Estimated GFR (units ( unknown) date) (>60) mL/min unknown) (unknown) (no (unknown) (unknown) Estimated GFR 45 L (units (unknown) date) (>60) mL/min unknown) (unknown) (no (unknown) (unknown) Exam (units (unkno wn) date) unknown) (unknown) (no (unknown) (unknown) Extremities: No (units (unknown) date) trauma, well unknown) perfused (unknown) (no (unknown) (unknown) FINDINGS:? (units (unk nown) date) unknown) (unknown) (no (unknown) (unknown) Full and (units (unkno wn) date) symmetrical air unknown) movement, no respiratory distress appreciated (unknown) (no (unknown) (unknown) Gallbladder:? (units ( unknown) date) Unremarkable.? ? unknown) (unknown) (no (unknown) (unknown) General (units (unkno wn) date) unknown) (unknown) (no (unknown) (unknown) General: Acutely (units (unknown) date) ill-appearing, unknown) pale, significantly fatigued but will respond (unknown) (no (unknown) (unknown) Globulin (1.7-4.1) (units (unknown) date) g/dL unknown) (unknown) (no (unknown) (unknown) Globulin 3.4 (units (u nknown) date) (1.7-4.1) g/dL unknown) (unknown) (no (unknown) (unknown) Glucose (80-110) (units (unknown) date) mg/dL unknown) (unknown) (no (unknown) (unknown) Glucose 262 H (units ( unknown) date) (80-110) mg/dL unknown) (unknown) (no (unknown) (unknown) HEENT: Moist (units (u nknown) date) mucous membranes, unknown) normal sclera with reactive pupils, (unknown) (no (unknown) (unknown) HPI - General (units ( unknown) date) Adult unknown) (unknown) (no (unknown) (unknown) HPI narrative: (units (unknown) date) unknown) (unknown) (no (unknown) (unknown) Hct (41-53) % (units ( unknown) date) unknown) (unknown) (no (unknown) (unknown) Hct 38.2 L (41-53) (units (unknown) date) % unknown) (unknown) (no (unknown) (unknown) Heart:? No (units (unk nown) date) significant unknown) findings. (unknown) (no (unknown) (unknown) Hgb (13.5-17.5) (units (unknown) date) g/dL unknown) (unknown) (no (unknown) (unknown) Hgb 13.3 L (units (unk nown) date) (13.5-17.5) g/dL unknown) (unknown) (no (unknown) (unknown) History of Present (units (unknown) date) Illness unknown) (unknown) (no (unknown) (unknown) History of kidney (units (unknown) date) stones unknown) (unknown) (no (unknown) (unknown) Home Medications (units (unknown) date) unknown) (unknown) (no (unknown) (unknown) Hyperlipidemia (units (unknown) date) unknown) (unknown) (no (unknown) (unknown) Hypertension (units (u nknown) date) unknown) (unknown) (no (unknown) (unknown) IMPRESSION:? No (units (unknown) date) abscess found, no unknown) evidence of colitis or diverticulitis, or (unknown) (no (unknown) (unknown) IMPRESSION:? (units (u nknown) date) Reduced inspiratory unknown) volume, no acute disease when this factor is (unknown) (no (unknown) (unknown) INR (0.9-1.3) (units ( unknown) date) unknown) (unknown) (no (unknown) (unknown) INR 1.6 H (units (unkn own) date) (0.9-1.3) unknown) (unknown) (no (unknown) (unknown) Image quality:? (units (unknown) date) Excellent.? unknown) (unknown) (no (unknown) (unknown) Imaging Data (units (u nknown) date) unknown) (unknown) (no (unknown) (unknown) Initial Vital (units ( unknown) date) Signs unknown) (unknown) (no (unknown) (unknown) Initial Vital (units ( unknown) date) Signs: unknown) (unknown) (no (unknown) (unknown) Interpretation: (units (unknown) date) unknown) (unknown) (no (unknown) (unknown) [facility] (units (unknown) date) [address] [place] [address] unknown) [place] [address] (unknown) (no (unknown) (unknown) Kidney stones (units ( unknown) date) unknown) (unknown) (no (unknown) (unknown) Kidneys and (units (un known) date) Ureters:? 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 (unknown) (no (unknown) (unknown) Lab Data (units (unkno wn) date) unknown) (unknown) (no (unknown) (unknown) Lab Results (units (un known) date) unknown) (unknown) (no (unknown) (unknown) Label Comments: (units (unknown) date) unknown) (unknown) (no (unknown) (unknown) Labs: (units (unkno wn) date) unknown) (unknown) (no (unknown) (unknown) Lactate (0.7-2.1) (units (unknown) date) mmol/L unknown) (unknown) (no (unknown) (unknown) Lactate (Lactic (units (unknown) date) Acid) Stat unknown) (unknown) (no (unknown) (unknown) Lactate 3.0 H (units ( unknown) date) (0.7-2.1) mmol/L unknown) (unknown) (no (unknown) (unknown) Last Admin: (units (un known) date) 01/31/22 20:17 unknown) Dose: 100 mls/hr (unknown) (no (unknown) (unknown) Last Admin: (units (un known) date) 01/31/22 20:17 unknown) Dose: 920.79 mls/hr (unknown) (no (unknown) (unknown) Last Infusion: (units (unknown) date) 01/31/22 21:10 unknown) Dose: 0 mls/hr (unknown) (no (unknown) (unknown) Left axis (units (unkn own) date) deviation unknown) (unknown) (no (unknown) (unknown) Liver:? (units (unkno wn) date) Unremarkable.? ? unknown) (unknown) (no (unknown) (unknown) Lung bases:? (units (u nknown) date) Unremarkable. unknown) (unknown) (no (unknown) (unknown) Lungs and pleura:? (units (unknown) date) Lungs are clear.? unknown) No pleural effusions or pneumothorax.? (unknown) (no (unknown) (unknown) Lymph # (Auto) Not (units (unknown) date) Reportable unknown) (unknown) (no (unknown) (unknown) Lymph # (Auto) (units (unknown) date) unknown) (unknown) (no (unknown) (unknown) Lymph % (Auto) Not (units (unknown) date) Reportable unknown) (unknown) (no (unknown) (unknown) Lymph % (Auto) (units (unknown) date) unknown) (unknown) (no (unknown) (unknown) Lymphocytes % (units ( unknown) date) (Manual) (25-45) % unknown) (unknown) (no (unknown) (unknown) Lymphocytes % (units ( unknown) date) (Manual) 5.0 L unknown) (25-45) % (unknown) (no (unknown) (unknown) [id number] (units (unk nown) date) unknown) (unknown) (no (unknown) (unknown) MCH (26-34) PG (units (unknown) date) unknown) (unknown) (no (unknown) (unknown) MCH 28.5 (26-34) (units (unknown) date) PG unknown) (unknown) (no (unknown) (unknown) MCHC (30-36) % (units (unknown) date) unknown) (unknown) (no (unknown) (unknown) MCHC 34.8 (30-36) (units (unknown) date) % unknown) (unknown) (no (unknown) (unknown) MCV (80-100) fL (units (unknown) date) unknown) (unknown) (no (unknown) (unknown) MCV 81.8 (80-100) (units (unknown) date) fL unknown) (unknown) (no (unknown) (unknown) Measure peak (units (u nknown) date) expiratory flow unknown) ONCE (unknown) (no (unknown) (unknown) Mediastinum:? (units ( unknown) date) Mediastinal unknown) contours are normal.? Heart size is normal.? (unknown) (no (unknown) (unknown) Medical Decision (units (unknown) date) Making unknown) (unknown) (no (unknown) (unknown) Medical History (units (unknown) date) (Updated 01/31/22 @ unknown) 21:46 by Kyleigh Castellanos MD) (unknown) (no (unknown) (unknown) Medication (units (unk nown) date) Instructions unknown) Recorded Confirmed (unknown) (no (unknown) (unknown) Medication (units (unk nown) date) Instructions unknown) Recorded (unknown) (no (unknown) (unknown) Metronidazole (units ( unknown) date) (Flagyl) 500 mg in unknown) 100 mls @ 100 mls/hr IV NOW ONE (unknown) (no (unknown) (unknown) Miscellaneous: No (units (unknown) date) hernias are seen. ? unknown) ? (unknown) (no (unknown) (unknown) [place] # (Auto) Not (units (unknown) date) Reportable unknown) (unknown) (no (unknown) (unknown) [place] # (Auto) (units ( unknown) date) unknown) (unknown) (no (unknown) (unknown) [place] % (Auto) Not (units (unknown) date) Reportable unknown) (unknown) (no (unknown) (unknown) [place] % (Auto) (units ( unknown) date) unknown) (unknown) (no (unknown) (unknown) Monocytes % (units (un known) date) (Manual) (2-11) % unknown) (unknown) (no (unknown) (unknown) Monocytes % (units (un known) date) (Manual) 1.0 L unknown) (2-11) % (unknown) (no (unknown) (unknown) Narrative: (units (unk nown) date) unknown) (unknown) (no (unknown) (unknown) Neck: No JVD, (units ( unknown) date) supple unknown) (unknown) (no (unknown) (unknown) Neurologic: (units (un known) date) Globally weak but unknown) Grossly neurologically intact with no obvious (unknown) (no (unknown) (unknown) Neut % (Auto) Not (units (unknown) date) Reportable unknown) (unknown) (no (unknown) (unknown) Neut % (Auto) (units ( unknown) date) unknown) (unknown) (no (unknown) (unknown) Neutrophils # (units ( unknown) date) (Manual) unknown) ([id number]) /uL (unknown) (no (unknown) (unknown) Neutrophils # (units ( unknown) date) (Manual) [id number] H unknown) ([id number]) /uL (unknown) (no (unknown) (unknown) No Action (units (unkn own) date) unknown) (unknown) (no (unknown) (unknown) Ordered: (units (unkno wn) date) unknown) (unknown) (no (unknown) (unknown) Orders (units (unkno wn) date) unknown) (unknown) (no (unknown) (unknown) Oxygen Delivery (units (unknown) date) Method 01/31/22 unknown) 19:06 (unknown) (no (unknown) (unknown) Oxygen Delivery (units (unknown) date) Method Room Air unknown) Room Air (unknown) (no (unknown) (unknown) Oxygen Delivery (units (unknown) date) Method unknown) (unknown) (no (unknown) (unknown) PELVIS: (units (unkno wn) date) unknown) (unknown) (no (unknown) (unknown) PT (10.1-12.7) (units (unknown) date) SECONDS unknown) (unknown) (no (unknown) (unknown) PT 18.9 H (units (unkn own) date) (10.1-12.7) SECONDS unknown) (unknown) (no (unknown) (unknown) Pancreas:? (units (unk nown) date) Unremarkable.? ? unknown) (unknown) (no (unknown) (unknown) Partial (units (unkno wn) date) Thromboplastin Time unknown) Stat (unknown) (no (unknown) (unknown) Patient History (units (unknown) date) unknown) (unknown) (no (unknown) (unknown) Patient: (units (unkno wn) date) Pascual Padilla unknown) MR#: (unknown) (no (unknown) (unknown) Pelvic Nodes: No (units (unknown) date) enlarged lymph unknown) nodes.? (unknown) (no (unknown) (unknown) Pelvic Organs:? (units (unknown) date) Unremarkable.? ? unknown) (unknown) (no (unknown) (unknown) Penicillins (units (un known) date) Allergy Rash unknown) Verified 01/31/22 19:12 (unknown) (no (unknown) (unknown) Peritoneum:? No (units (unknown) date) abnormal unknown) intraperitoneal fluid.? No free air.? (unknown) (no (unknown) (unknown) Plt Count (units (unkn own) date) (150-400) X103/uL unknown) (unknown) (no (unknown) (unknown) Plt Count 156 (units ( unknown) date) (150-400) X103/uL unknown) (unknown) (no (unknown) (unknown) Point of care (units ( unknown) date) testing: unknown) (unknown) (no (unknown) (unknown) Potassium (units (unkn own) date) (3.4-5.1) mmol/L unknown) (unknown) (no (unknown) (unknown) Potassium 3.6 (units ( unknown) date) (3.4-5.1) mmol/L unknown) (unknown) (no (unknown) (unknown) Prescriptions: (units (unknown) date) unknown) (unknown) (no (unknown) (unknown) Previous Rx's (units ( unknown) date) unknown) (unknown) (no (unknown) (unknown) Procalcitonin (units ( unknown) date) (<0.5) ng/mL unknown) (unknown) (no (unknown) (unknown) Procalcitonin 4.70 (units (unknown) date) H (<0.5) ng/mL unknown) (unknown) (no (unknown) (unknown) Procalcitonin Stat (units (unknown) date) unknown) (unknown) (no (unknown) (unknown) Prothrombin Time (units (unknown) date) INR Stat unknown) (unknown) (no (unknown) (unknown) Psych: (units (unkno wn) date) Cooperative, unknown) significant fatigue (unknown) (no (unknown) (unknown) Pulse Oximetry 97 (units (unknown) date) 96 unknown) (unknown) (no (unknown) (unknown) Pulse Oximetry 98 (units (unknown) date) 01/31/22 19:06 unknown) (unknown) (no (unknown) (unknown) Pulse Oximetry 98 (units (unknown) date) 95 unknown) (unknown) (no (unknown) (unknown) Pulse Oximetry 98 (units (unknown) date) 97 unknown) (unknown) (no (unknown) (unknown) Pulse Oximetry 99 (units (unknown) date) unknown) (unknown) (no (unknown) (unknown) Pulse Rate 117 H (units (unknown) date) 01/31/22 19:06 unknown) (unknown) (no (unknown) (unknown) Pulse Rate 117 H (units (unknown) date) 124 H unknown) (unknown) (no (unknown) (unknown) Pulse Rate 118 H (units (unknown) date) 67 unknown) (unknown) (no (unknown) (unknown) Pulse Rate 119 H (units (unknown) date) 120 H unknown) (unknown) (no (unknown) (unknown) Pulse Rate 122 H (units (unknown) date) 116 H unknown) (unknown) (no (unknown) (unknown) Pulse Rate 122 H (units (unknown) date) unknown) (unknown) (no (unknown) (unknown) QTC prolonged at (units (unknown) date) 583 milliseconds unknown) (unknown) (no (unknown) (unknown) RBC (4.5-5.9) (units ( unknown) date) X106/uL unknown) (unknown) (no (unknown) (unknown) RBC 4.66 (4.5-5.9) (units (unknown) date) X106/uL unknown) (unknown) (no (unknown) (unknown) RBC Morphology See (units (unknown) date) below unknown) (unknown) (no (unknown) (unknown) RBC Morphology (units (unknown) date) unknown) (unknown) (no (unknown) (unknown) RDW (11.6-14.8) % (units (unknown) date) unknown) (unknown) (no (unknown) (unknown) RDW 14.0 (units (unkno wn) date) (11.6-14.8) % unknown) (unknown) (no (unknown) (unknown) RT Consult Eval (units (unknown) date) and Treat Now unknown) (unknown) (no (unknown) (unknown) Radiologist's (units ( unknown) date) Impression: unknown) (unknown) (no (unknown) (unknown) Referrals: (units (unk nown) date) unknown) (unknown) (no (unknown) (unknown) Related Data (units (u nknown) date) unknown) (unknown) (no (unknown) (unknown) Remainder of (units (u nknown) date) complete review of unknown) systems is otherwise unremarkable except for (unknown) (no (unknown) (unknown) Respiratory Rate (units (unknown) date) 30 H unknown) (unknown) (no (unknown) (unknown) Respiratory Rate (units (unknown) date) 31 H unknown) (unknown) (no (unknown) (unknown) Respiratory Rate (units (unknown) date) 35 H 01/31/22 19:06 unknown) (unknown) (no (unknown) (unknown) Respiratory Rate (units (unknown) date) 35 H unknown) (unknown) (no (unknown) (unknown) Respiratory Rate (units (unknown) date) 39 H 41 H unknown) (unknown) (no (unknown) (unknown) Respiratory Rate (units (unknown) date) 43 H unknown) (unknown) (no (unknown) (unknown) Respiratory: Lungs (units (unknown) date) are clear to unknown) auscultation, no wheezing no rales no rhonchi. (unknown) (no (unknown) (unknown) Result diagrams: (units (unknown) date) unknown) (unknown) (no (unknown) (unknown) Review of Systems (units (unknown) date) unknown) (unknown) (no (unknown) (unknown) Seg Neutrophils % (units (unknown) date) (38-70) % unknown) (unknown) (no (unknown) (unknown) Seg Neutrophils % (units (unknown) date) 82.0 H (38-70) % unknown) (unknown) (no (unknown) (unknown) Signed By: (units (unk nown) date) unknown) (unknown) (no (unknown) (unknown) Sinus tachycardia (units (unknown) date) at a rate of 116 unknown) (unknown) (no (unknown) (unknown) Skin: Pale but (units (unknown) date) otherwise Warm and unknown) dry, no rashes (unknown) (no (unknown) (unknown) Smoking Status: (units (unknown) date) Never smoker unknown) (unknown) (no (unknown) (unknown) Social History (units (unknown) date) (Reviewed 01/31/22 unknown) @ 21:45 by Kyleigh Castellanos MD) (unknown) (no (unknown) (unknown) Sodium (137-145) (units (unknown) date) mmol/L unknown) (unknown) (no (unknown) (unknown) Sodium 135 L (units (u nknown) date) (137-145) mmol/L unknown) (unknown) (no (unknown) (unknown) Sodium Chloride (units (unknown) date) (Normal Saline unknown) 0.9%) 2,762.37 mls @ 920.79 mls/hr 30 ml/kg (unknown) (no (unknown) (unknown) Spleen:? (units (unkno wn) date) Unremarkable.? ? unknown) (unknown) (no (unknown) (unknown) Stated complaint: (units (unknown) date) Vomiting, Stomach unknown) cramps, SOB (unknown) (no (unknown) (unknown) Stomach and (units (un known) date) Bowel:? Stomach, unknown) small bowel loops, and colon are unremarkable.? (unknown) (no (unknown) (unknown) Stop: 01/31/22 (units (unknown) date) 20:06 unknown) (unknown) (no (unknown) (unknown) Stop: 01/31/22 (units (unknown) date) 21:04 unknown) (unknown) (no (unknown) (unknown) Stop: 01/31/22 (units (unknown) date) 21:42 unknown) (unknown) (no (unknown) (unknown) Stop: 01/31/22 (units (unknown) date) 23:01 unknown) (unknown) (no (unknown) (unknown) Substance Use (units ( unknown) date) Type: does not use unknown) (unknown) (no (unknown) (unknown) Subtle lateral ST (units (unknown) date) depression unknown) (unknown) (no (unknown) (unknown) Surgical changes (units (unknown) date) and devices:? unknown) None.? (unknown) (no (unknown) (unknown) Temperature 98.3 F (units (unknown) date) 01/31/22 19:06 unknown) (unknown) (no (unknown) (unknown) Temperature 98.3 F (units (unknown) date) unknown) (unknown) (no (unknown) (unknown) Temperature (units (un known) date) unknown) (unknown) (no (unknown) (unknown) The left (units (unkno wn) date) unknown) (unknown) (no (unknown) (unknown) Time Seen by (units (u nknown) date) Provider: 01/31/22 unknown) 19:43 (unknown) (no (unknown) (unknown) Total Bilirubin (units (unknown) date) (0.2-1.3) mg/dL unknown) (unknown) (no (unknown) (unknown) Total Bilirubin (units (unknown) date) 2.2 H (0.2-1.3) unknown) mg/dL (unknown) (no (unknown) (unknown) Total Counted 100 (units (unknown) date) unknown) (unknown) (no (unknown) (unknown) Total Counted (units ( unknown) date) unknown) (unknown) (no (unknown) (unknown) Total Creatine (units (unknown) date) Kinase (55-170) U/L unknown) (unknown) (no (unknown) (unknown) Total Creatine (units (unknown) date) Kinase 59 (55-170) unknown) U/L (unknown) (no (unknown) (unknown) Total Protein (units ( unknown) date) (6.3-8.2) g/dL unknown) (unknown) (no (unknown) (unknown) Total Protein 7.6 (units (unknown) date) (6.3-8.2) g/dL unknown) (unknown) (no (unknown) (unknown) Troponin + CK (units ( unknown) date) Cardiac Panel Stat unknown) (unknown) (no (unknown) (unknown) Troponin I (units (unk nown) date) (0.01-0.034) ng/mL unknown) (unknown) (no (unknown) (unknown) Troponin I 0.924 (units (unknown) date) H* (0.01-0.034) unknown) ng/mL (unknown) (no (unknown) (unknown) Type 2 diabetes (units (unknown) date) mellitus unknown) (unknown) (no (unknown) (unknown) Ur Culture (units (unk nown) date) Indicated? Specimen unknown) cultured (unknown) (no (unknown) (unknown) Ur Culture (units (unk nown) date) Indicated? unknown) (unknown) (no (unknown) (unknown) Ur Leukocyte (units (u nknown) date) Esterase (NEGATIVE) unknown) (unknown) (no (unknown) (unknown) Ur Leukocyte (units (u nknown) date) Esterase 2+ H unknown) (NEGATIVE) (unknown) (no (unknown) (unknown) Ur Specific (units (un known) date) [place] unknown) (1.000-1.035) (unknown) (no (unknown) (unknown) Ur Specific (units (un known) date) [place] 1.010 unknown) (1.000-1.035) (unknown) (no (unknown) (unknown) Ur Squamous Epith (units (unknown) date) Cells (0-5/HPF) unknown) (unknown) (no (unknown) (unknown) Ur Squamous Epith (units (unknown) date) Cells None seen unknown) (0-5/HPF) (unknown) (no (unknown) (unknown) Urinalysis and (units (unknown) date) Microscopic Stat unknown) (unknown) (no (unknown) (unknown) Urine Appearance (units (unknown) date) Sl cloudy unknown) (unknown) (no (unknown) (unknown) Urine Appearance (units (unknown) date) unknown) (unknown) (no (unknown) (unknown) Urine Bacteria (units (unknown) date) (None) unknown) (unknown) (no (unknown) (unknown) Urine Bacteria (units (unknown) date) Many (>30) H (None) unknown) (unknown) (no (unknown) (unknown) Urine Bilirubin (units (unknown) date) (NEGATIVE) unknown) (unknown) (no (unknown) (unknown) Urine Bilirubin (units (unknown) date) Negative (NEGATIVE) unknown) (unknown) (no (unknown) (unknown) Urine Color Yellow (units (unknown) date) unknown) (unknown) (no (unknown) (unknown) Urine Color (units (un known) date) unknown) (unknown) (no (unknown) (unknown) Urine Culture Stat (units (unknown) date) unknown) (unknown) (no (unknown) (unknown) Urine Dip (units (unkn own) date) unknown) (unknown) (no (unknown) (unknown) Urine Glucose (UA) (units (unknown) date) (Negative) g/dL unknown) (unknown) (no (unknown) (unknown) Urine Glucose (UA) (units (unknown) date) Negative (Negative) unknown) g/dL (unknown) (no (unknown) (unknown) Urine Ketones (units ( unknown) date) (NEGATIVE) unknown) (unknown) (no (unknown) (unknown) Urine Ketones (units ( unknown) date) Negative (NEGATIVE) unknown) (unknown) (no (unknown) (unknown) Urine Nitrate (units ( unknown) date) (Negative) unknown) (unknown) (no (unknown) (unknown) Urine Nitrate (units ( unknown) date) Negative (Negative) unknown) (unknown) (no (unknown) (unknown) Urine Occult Blood (units (unknown) date) (Negative) unknown) (unknown) (no (unknown) (unknown) Urine Occult Blood (units (unknown) date) 1+ H (Negative) unknown) (unknown) (no (unknown) (unknown) Urine Protein (units ( unknown) date) (Negative) unknown) (unknown) (no (unknown) (unknown) Urine Protein 1+ H (units (unknown) date) (Negative) unknown) (unknown) (no (unknown) (unknown) Urine RBC (units (unkn own) date) (0-5/HPF) unknown) (unknown) (no (unknown) (unknown) Urine RBC 0-1/hpf (units (unknown) date) (0-5/HPF) unknown) (unknown) (no (unknown) (unknown) Urine Specific (units (unknown) date) [place] 1.02 unknown) (unknown) (no (unknown) (unknown) Urine Urobilinogen (units (unknown) date) (0.2) E.U./dL unknown) (unknown) (no (unknown) (unknown) Urine Urobilinogen (units (unknown) date) 0.2 (0.2) E.U./dL unknown) (unknown) (no (unknown) (unknown) Urine WBC (units (unkn own) date) (0-5/HPF) unknown) (unknown) (no (unknown) (unknown) Urine WBC (units (unkn own) date) 30-100/hpf H unknown) (0-5/HPF) (unknown) (no (unknown) (unknown) Urine pH (4.5-8.0) (units (unknown) date) unknown) (unknown) (no (unknown) (unknown) Urine pH 5.0 (units (u nknown) date) (4.5-8.0) unknown) (unknown) (no (unknown) (unknown) Ventral Wall: ? No (units (unknown) date) hernias.? unknown) (unknown) (no (unknown) (unknown) Vessels:? Aorta (units (unknown) date) and inferior vena unknown) cava are normal in size.? (unknown) (no (unknown) (unknown) Vital Signs - 8 hr (units (unknown) date) unknown) (unknown) (no (unknown) (unknown) Vital Signs (units (un known) date) unknown) (unknown) (no (unknown) (unknown) Vital signs: (units (u nknown) date) unknown) (unknown) (no (unknown) (unknown) WBC (4.5-11.0) (units (unknown) date) X103/uL unknown) (unknown) (no (unknown) (unknown) WBC 29.1 H (units (unk nown) date) (4.5-11.0) X103/uL unknown) (unknown) (no (unknown) (unknown) XR chest 2V Stat (units (unknown) date) unknown) (unknown) (no (unknown) (unknown) [Embedded Image (units (unknown) date) Not Available] unknown) (unknown) (no (unknown) (unknown) a incontinence (units (unknown) date) pad. He has not unknown) been having any diarrhea or constipation. He (unknown) (no (unknown) (unknown) a slight (units (unkno wn) date) unknown) (unknown) (no (unknown) (unknown) account. (units (unkno wn) date) unknown) (unknown) (no (unknown) (unknown) alcohol intake (units (unknown) date) frequency: unknown) holidays/special occasions only (unknown) (no (unknown) (unknown) alcohol intake: (units (unknown) date) current unknown) (unknown) (no (unknown) (unknown) amlodipine 10 mg (units (unknown) date) tablet 10 mg PO unknown) DAILY 01/27/18 07/13/19 (unknown) (no (unknown) (unknown) amlodipine 10 mg (units (unknown) date) tablet unknown) (unknown) (no (unknown) (unknown) any significant (units (unknown) date) cough, chest pain, unknown) palpitations, lower extremity edema. He (unknown) (no (unknown) (unknown) appendicitis. (units ( unknown) date) unknown) (unknown) (no (unknown) (unknown) asymmetries or (units (unknown) date) abnormalities unknown) (unknown) (no (unknown) (unknown) been significantly (units (unknown) date) fatigued but is unknown) otherwise cognitively intact. (unknown) (no (unknown) (unknown) chlorthalidone 50 (units (unknown) date) mg tablet 50 mg PO unknown) DAILY 01/27/18 07/13/19 (unknown) (no (unknown) (unknown) chlorthalidone 50 (units (unknown) date) mg tablet unknown) (unknown) (no (unknown) (unknown) collecting (units (unk nown) date) unknown) (unknown) (no (unknown) (unknown) degree Mya renal (units (unknown) date) edema.? A urinary unknown) tract stone, is not seen on the left. (unknown) (no (unknown) (unknown) exenatide (units (unkn own) date) microspheres 2 unknown) mg/0.85 2 mg SUBCUT QWEEK 07/05/19 07/13/19 (unknown) (no (unknown) (unknown) fatigue, overall (units (unknown) date) altered mental unknown) status, increasing abdominal pain. He denies (unknown) (no (unknown) (unknown) fenofibrate (units (un known) date) nanocrystallized unknown) 145 145 mg PO DAILY 07/05/19 07/13/19 (unknown) (no (unknown) (unknown) fenofibrate (units (un known) date) nanocrystallized unknown) 145 mg tablet (unknown) (no (unknown) (unknown) has been passing (units (unknown) date) gas. Reports no unknown) significant headache. They report that he has (unknown) (no (unknown) (unknown) household members: (units (unknown) date) spouse unknown) (unknown) (no (unknown) (unknown) hydronephrosis or (units (unknown) date) unknown) (unknown) (no (unknown) (unknown) hyperlipidemia, (units (unknown) date) prior kidney stones unknown) presents with 12 hours of increasing fevers, (unknown) (no (unknown) (unknown) infuse over 3 hr (units (unknown) date) (2762.37 ml) IV NOW unknown) ONE (unknown) (no (unknown) (unknown) insulin glargine (units (unknown) date) 100 unit/mL (3 26 unknown) units SUBCUT DAILY 01/27/18 07/13/19 (unknown) (no (unknown) (unknown) insulin glargine (units (unknown) date) 100 unit/mL (3 mL) unknown) insulin pen (unknown) (no (unknown) (unknown) kidney demonstrates (units (unknown) date) slight prominence unknown) of the central renal collecting system and (unknown) (no (unknown) (unknown) levofloxacin [From (units (unknown) date) Levaquin] Allergy unknown) Rash Verified 01/31/22 19:12 (unknown) (no (unknown) (unknown) losartan 100 mg (units (unknown) date) tablet 100 mg PO unknown) DAILY 01/27/18 07/13/19 (unknown) (no (unknown) (unknown) losartan 100 mg (units (unknown) date) tablet unknown) (unknown) (no (unknown) (unknown) mL subcutaneous (units (unknown) date) auto-injector unknown) (unknown) (no (unknown) (unknown) mL) subcutaneous (units (unknown) date) pen unknown) (unknown) (no (unknown) (unknown) metformin 500 mg (units (unknown) date) tablet 500 mg PO unknown) BID 01/27/18 07/13/19 (unknown) (no (unknown) (unknown) metformin 500 mg (units (unknown) date) tablet unknown) (unknown) (no (unknown) (unknown) mg tablet (units (unkn own) date) unknown) (unknown) (no (unknown) (unknown) mondays (units (unkno wn) date) unknown) (unknown) (no (unknown) (unknown) no flank pain (units ( unknown) date) unknown) (unknown) (no (unknown) (unknown) not (units (unkno wn) date) unknown) (unknown) (no (unknown) (unknown) oxycodone 5 mg (units (unknown) date) capsule 5 mg PO Q4H unknown) PRN pain #14 caps 07/13/19 (unknown) (no (unknown) (unknown) oxycodone 5 mg (units (unknown) date) capsule unknown) (unknown) (no (unknown) (unknown) pigtail (units (unkno wn) date) unknown) (unknown) (no (unknown) (unknown) retained (units (unkno wn) date) calculus.? On the unknown) left there is mild prominence of the central renal (unknown) (no (unknown) (unknown) right ureteral (units (unknown) date) stent.? There is no unknown) right-sided hydronephrosis or hydroureter.? (unknown) (no (unknown) (unknown) rosuvastatin 40 mg (units (unknown) date) tablet 40 mg PO unknown) DAILY 07/05/19 07/13/19 (unknown) (no (unknown) (unknown) rosuvastatin 40 mg (units (unknown) date) tablet unknown) (unknown) (no (unknown) (unknown) seen. (units (unkno wn) date) unknown) (unknown) (no (unknown) (unknown) states that he is (units (unknown) date) able to void but it unknown) is only intervals and he frequently wears (unknown) (no (unknown) (unknown) system but an (units (u nknown) date) obstructive urinary unknown) tract stone more distally within the ureter is (unknown) (no (unknown) (unknown) taken into (units (unk nown) date) unknown) (unknown) (no (unknown) (unknown) tamsulosin 0.4 mg (units (unknown) date) capsule 0.4 mg PO unknown) DAILY #60 caps 07/13/19 (unknown) (no (unknown) (unknown) tamsulosin 0.4 mg (units (unknown) date) capsule unknown) (unknown) (no (unknown) (unknown) that included in (units (unknown) date) the HPI. unknown) (unknown) (no (unknown) (unknown) to direct (units (unkn own) date) questions unknown) (unknown) (no (unknown) (unknown) unremarkable.? (units (unknown) date) unknown) Result panel 11 (unknown) (no (unknown) (unknown) (no value) (units (unk nown) date) unknown) (unknown) (no (unknown) (unknown) (Bydureon BCise) (units (unknown) date) unknown) (unknown) (no (unknown) (unknown) 0.4 mg PO DAILY (units (unknown) date) Qty: 60 0RF unknown) (unknown) (no (unknown) (unknown) 10 mg PO DAILY (units (unknown) date) unknown) (unknown) (no (unknown) (unknown) 01/31/22 01/31/22 (units (unknown) date) 01/31/22 unknown) Range/Units (unknown) (no (unknown) (unknown) 01/31/22 19:24 (units (unknown) date) unknown) (unknown) (no (unknown) (unknown) 01/31/22 20:00 (units (unknown) date) unknown) (unknown) (no (unknown) (unknown) 01/31/22 20:02 (units (unknown) date) unknown) (unknown) (no (unknown) (unknown) 01/31/22 20:03 (units (unknown) date) unknown) (unknown) (no (unknown) (unknown) 01/31/22 20:14 (units (unknown) date) unknown) (unknown) (no (unknown) (unknown) 01/31/22 20:28 (units (unknown) date) unknown) (unknown) (no (unknown) (unknown) 01/31/22 (units (unkno wn) date) Range/Units unknown) (unknown) (no (unknown) (unknown) 01/31/22 (units (unkno wn) date) unknown) (unknown) (no (unknown) (unknown) 100 mg PO DAILY (units (unknown) date) unknown) (unknown) (no (unknown) (unknown) 145 mg PO DAILY (units (unknown) date) unknown) (unknown) (no (unknown) (unknown) 19:06 01/31/22 (units (unknown) date) unknown) (unknown) (no (unknown) (unknown) 19:19 01/31/22 (units (unknown) date) unknown) (unknown) (no (unknown) (unknown) 19:20 01/31/22 (units (unknown) date) unknown) (unknown) (no (unknown) (unknown) 19:20 (units (unkno wn) date) unknown) (unknown) (no (unknown) (unknown) 19:30 01/31/22 (units (unknown) date) unknown) (unknown) (no (unknown) (unknown) 19:30 (units (unkno wn) date) unknown) (unknown) (no (unknown) (unknown) 2 mg SUBCUT QWEEK (units (unknown) date) unknown) (unknown) (no (unknown) (unknown) 20:00 01/31/22 (units (unknown) date) unknown) (unknown) (no (unknown) (unknown) 20:00 20:00 20:00 (units (unknown) date) unknown) (unknown) (no (unknown) (unknown) 20:14 (units (unkno wn) date) unknown) (unknown) (no (unknown) (unknown) 20:30 01/31/22 (units (unknown) date) unknown) (unknown) (no (unknown) (unknown) 20:30 (units (unkno wn) date) unknown) (unknown) (no (unknown) (unknown) 20:45 01/31/22 (units (unknown) date) unknown) (unknown) (no (unknown) (unknown) 21:07 (units (unkno wn) date) unknown) (unknown) (no (unknown) (unknown) 21:11 01/31/22 (units (unknown) date) unknown) (unknown) (no (unknown) (unknown) 21:11 (units (unkno wn) date) unknown) (unknown) (no (unknown) (unknown) 26 units subcut (units (unknown) date) DAILY unknown) (unknown) (no (unknown) (unknown) 30 particular was (units (unknown) date) initiated. He is unknown) allergic to penicillin so rather than Zosyn (unknown) (no (unknown) (unknown) 40 mg PO DAILY (units (unknown) date) unknown) (unknown) (no (unknown) (unknown) 5 mg PO Q4H PRN (units (unknown) date) (Reason: pain) Qty: unknown) 14 0RF (unknown) (no (unknown) (unknown) 50 mg PO DAILY (units (unknown) date) unknown) (unknown) (no (unknown) (unknown) 500 mg PO BID (units ( unknown) date) unknown) (unknown) (no (unknown) (unknown) 71-year-old (units (un known) date) gentleman presents unknown) acutely ill, febrile pale with severe abdominal (unknown) (no (unknown) (unknown) 71-year-old (units (un known) date) gentleman with unknown) history of hypertension, type 2 diabetes, (unknown) (no (unknown) (unknown) ? 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 (unknown) (no (unknown) (unknown) ABDOMEN: (units (unkno wn) date) unknown) (unknown) (no (unknown) (unknown) ALT (<50) IU/L (units (unknown) date) unknown) (unknown) (no (unknown) (unknown) ALT 16 (<50) IU/L (units (unknown) date) unknown) (unknown) (no (unknown) (unknown) APTT (26-36) (units (u nknown) date) SECONDS unknown) (unknown) (no (unknown) (unknown) APTT 31 (26-36) (units (unknown) date) SECONDS unknown) (unknown) (no (unknown) (unknown) AST (17-59) IU/L (units (unknown) date) unknown) (unknown) (no (unknown) (unknown) AST 31 (17-59) (units (unknown) date) IU/L unknown) (unknown) (no (unknown) (unknown) Abdomen: Mild (units ( unknown) date) distention, diffuse unknown) abdominal pain without rebound or guarding, (unknown) (no (unknown) (unknown) Abdominal Nodes:? (units (unknown) date) No retroperitoneal unknown) or mesenteric adenopathy by size criteria.? (unknown) (no (unknown) (unknown) Acetaminophen (units ( unknown) date) (Acetaminophen 325 unknown) Mg Tablet) 975 mg PO NOW ONE (unknown) (no (unknown) (unknown) Acute kidney (units (u nknown) date) injury with unknown) creatinine increased from 1.3-1.6. Likely compounded (unknown) (no (unknown) (unknown) Admin: 01/31/22 (units (unknown) date) 20:13 Dose: 200 unknown) mls/hr (unknown) (no (unknown) (unknown) Adrenal Glands:? (units (unknown) date) Unremarkable.? ? unknown) (unknown) (no (unknown) (unknown) Age/Sex: 71 / M (units (unknown) date) unknown) (unknown) (no (unknown) (unknown) Albumin (3.5-5.0) (units (unknown) date) g/dL unknown) (unknown) (no (unknown) (unknown) Albumin 4.2 (units (un known) date) (3.5-5.0) g/dL unknown) (unknown) (no (unknown) (unknown) Albumin/Globulin (units (unknown) date) Ratio (1.0-2.8) unknown) (unknown) (no (unknown) (unknown) Albumin/Globulin (units (unknown) date) Ratio 1.2 (1.0-2.8) unknown) (unknown) (no (unknown) (unknown) Alkaline (units (unkno wn) date) Phosphatase unknown) (38-126) U/L (unknown) (no (unknown) (unknown) Alkaline (units (unkno wn) date) Phosphatase 66 unknown) (38-126) U/L (unknown) (no (unknown) (unknown) Allergies (units (unkn own) date) unknown) (unknown) (no (unknown) (unknown) Allergy/AdvReac (units (unknown) date) Type Severity unknown) Reaction Status Date / Time (unknown) (no (unknown) (unknown) Anisocytosis 1+ H (units (unknown) date) unknown) (unknown) (no (unknown) (unknown) Anisocytosis (units (u nknown) date) unknown) (unknown) (no (unknown) (unknown) 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, unknown) Ramírez catheter now in place (unknown) (no (unknown) (unknown) BUN (9-20) mg/dL (units (unknown) date) unknown) (unknown) (no (unknown) (unknown) BUN 22 H (9-20) (units (unknown) date) mg/dL unknown) (unknown) (no (unknown) (unknown) BUN/Creatinine (units (unknown) date) Ratio (6-22) unknown) (unknown) (no (unknown) (unknown) BUN/Creatinine (units (unknown) date) Ratio 13.8 (6-22) unknown) (unknown) (no (unknown) (unknown) Band Neutrophils % (units (unknown) date) (3-7) % unknown) (unknown) (no (unknown) (unknown) Band Neutrophils % (units (unknown) date) 12.0 H (3-7) % unknown) (unknown) (no (unknown) (unknown) Baso # (Auto) Not (units (unknown) date) Reportable unknown) (unknown) (no (unknown) (unknown) Baso # (Auto) (units ( unknown) date) unknown) (unknown) (no (unknown) (unknown) Baso % (Auto) Not (units (unknown) date) Reportable unknown) (unknown) (no (unknown) (unknown) Baso % (Auto) (units ( unknown) date) unknown) (unknown) (no (unknown) (unknown) Bedside Urine (units ( unknown) date) Bilirubin - unknown) Negative (unknown) (no (unknown) (unknown) Bedside Urine (units ( unknown) date) Glucose Negative unknown) (unknown) (no (unknown) (unknown) Bedside Urine (units ( unknown) date) Ketone - Negative unknown) (unknown) (no (unknown) (unknown) Bedside Urine (units ( unknown) date) Leukocytes + 70 unknown) (unknown) (no (unknown) (unknown) Bedside Urine (units ( unknown) date) Nitrite - Negative unknown) (unknown) (no (unknown) (unknown) Bedside Urine (units ( unknown) date) Occult Blood +/ unknown) (unknown) (no (unknown) (unknown) Bedside Urine (units ( unknown) date) Protein + 30 unknown) (unknown) (no (unknown) (unknown) Bedside Urine (units ( unknown) date) Urobilinogen - unknown) Negative (unknown) (no (unknown) (unknown) Bedside Urine pH 6 (units (unknown) date) unknown) (unknown) (no (unknown) (unknown) Biliary ducts:? (units (unknown) date) Unremarkable.? ? unknown) (unknown) (no (unknown) (unknown) Bladder:? (units (unkn own) date) Unremarkable.? ? unknown) (unknown) (no (unknown) (unknown) Blood Culture Stat (units (unknown) date) unknown) (unknown) (no (unknown) (unknown) Blood Pressure (units (unknown) date) 127/80 unknown) (unknown) (no (unknown) (unknown) Blood Pressure (units (unknown) date) 132/79 unknown) (unknown) (no (unknown) (unknown) Blood Pressure (units (unknown) date) 134/75 10 unknown) 19:06 (unknown) (no (unknown) (unknown) Blood Pressure (units (unknown) date) 134/75 139/80 unknown) (unknown) (no (unknown) (unknown) Blood Pressure (units (unknown) date) 136/78 unknown) (unknown) (no (unknown) (unknown) Blood Pressure (units (unknown) date) 137/76 unknown) (unknown) (no (unknown) (unknown) Bones and chest (units (unknown) date) wall:? No unknown) suspicious bony abnormalities.? Soft tissues appear (unknown) (no (unknown) (unknown) Bones:? (units (unkno wn) date) Unremarkable.? ? unknown) (unknown) (no (unknown) (unknown) Bydureon BCise 2 (units (unknown) date) mg/0.85 mL unknown) auto-injector (unknown) (no (unknown) (unknown) CK-MB (CK-2) Rel (units (unknown) date) Index TNP unknown) (unknown) (no (unknown) (unknown) CK-MB (CK-2) Rel (units (unknown) date) Index unknown) (unknown) (no (unknown) (unknown) CK-MB (CK-2) TNP (units (unknown) date) unknown) (unknown) (no (unknown) (unknown) CK-MB (CK-2) (units (u nknown) date) unknown) (unknown) (no (unknown) (unknown) CT abdomen pelvis (units (unknown) date) w con Stat unknown) (unknown) (no (unknown) (unknown) CT scan - (units (unkn own) date) abdomen/pelvis: unknown) (unknown) (no (unknown) (unknown) CT scan does not (units (unknown) date) suggest acute unknown) abscess, diverticulitis or appendicitis. Some (unknown) (no (unknown) (unknown) Calcium (8.4-10.2) (units (unknown) date) mg/dL unknown) (unknown) (no (unknown) (unknown) Calcium 8.1 L (units ( unknown) date) (8.4-10.2) mg/dL unknown) (unknown) (no (unknown) (unknown) Carbon Dioxide (units (unknown) date) (22-32) mmol/L unknown) (unknown) (no (unknown) (unknown) Carbon Dioxide 23 (units (unknown) date) (22-32) mmol/L unknown) (unknown) (no (unknown) (unknown) Cardiac: (units (unkno wn) date) Tachycardic without unknown) murmurs (unknown) (no (unknown) (unknown) Ceftriaxone Sodium (units (unknown) date) 2,000 mg/ (Sodium unknown) Chloride) 100 mls @ 200 mls/hr IV NOW ONE (unknown) (no (unknown) (unknown) Chest x-ray: (units (u nknown) date) unknown) (unknown) (no (unknown) (unknown) Chief complaint: (units (unknown) date) Abdominal Pain unknown) (unknown) (no (unknown) (unknown) Chloride (98-107) (units (unknown) date) mmol/L unknown) (unknown) (no (unknown) (unknown) Chloride 96 L (units ( unknown) date) (98-107) mmol/L unknown) (unknown) (no (unknown) (unknown) Jillian Rosales, (units (unknown) date) [Primary Care unknown) Provider] (unknown) (no (unknown) (unknown) Complete Blood (units (unknown) date) Count AUTO DIFF unknown) Stat (unknown) (no (unknown) (unknown) Comprehensive (units ( unknown) date) Metabolic Panel unknown) Stat (unknown) (no (unknown) (unknown) Course (units (unkno wn) date) unknown) (unknown) (no (unknown) (unknown) Creatinine (units (unk nown) date) (0.66-1.25) mg/dL unknown) (unknown) (no (unknown) (unknown) Creatinine 1.60 H (units (unknown) date) (0.66-1.25) mg/dL unknown) (unknown) (no (unknown) (unknown) D Dimer Stat (units (u nknown) date) unknown) (unknown) (no (unknown) (unknown) D-Dimer (<500) (units (unknown) date) ng/ml unknown) (unknown) (no (unknown) (unknown) D-Dimer 821 H (units ( unknown) date) (<500) ng/ml unknown) (unknown) (no (unknown) (unknown) : 1950 (units (unknown) date) Acct:[id number] unknown) (unknown) (no (unknown) (unknown) Date of Service: (units (unknown) date) 01/31/22 unknown) (unknown) (no (unknown) (unknown) Departure (units (unkn own) date) unknown) (unknown) (no (unknown) (unknown) Dictated by: Dwayne (units (unknown) date) Jody Meadows on unknown) 01/31/2022 at 20:08 ? ? (unknown) (no (unknown) (unknown) Dictated by: Dwayne (units (unknown) date) Jody Meadows on unknown) 01/31/2022 at 21:21 ? ? (unknown) (no (unknown) (unknown) Discharge Plan (units (unknown) date) unknown) (unknown) (no (unknown) (unknown) Discontinued (units (u nknown) date) Medications unknown) (unknown) (no (unknown) (unknown) Documented By: NR (units (unknown) date) unknown) (unknown) (no (unknown) (unknown) ECG Data (units (unkno wn) date) unknown) (unknown) (no (unknown) (unknown) ED Orders (units (unkn own) date) unknown) (unknown) (no (unknown) (unknown) EKG-12 Lead Stat (units (unknown) date) unknown) (unknown) (no (unknown) (unknown) ER Physician: (units ( unknown) date) Kyleigh Castellanos MD unknown) (unknown) (no (unknown) (unknown) Emergency Report (units (unknown) date) unknown) (unknown) (no (unknown) (unknown) Eos % (Auto) Not (units (unknown) date) Reportable unknown) (unknown) (no (unknown) (unknown) Eos % (Auto) (units (u nknown) date) unknown) (unknown) (no (unknown) (unknown) Esterase (units (unkno wn) date) unknown) (unknown) (no (unknown) (unknown) Estimated GFR (units ( unknown) date) (>60) mL/min unknown) (unknown) (no (unknown) (unknown) Estimated GFR 45 L (units (unknown) date) (>60) mL/min unknown) (unknown) (no (unknown) (unknown) Exam (units (unkno wn) date) unknown) (unknown) (no (unknown) (unknown) Extremities: No (units (unknown) date) trauma, well unknown) perfused (unknown) (no (unknown) (unknown) FINDINGS:? (units (unk nown) date) unknown) (unknown) (no (unknown) (unknown) Full and (units (unkno wn) date) symmetrical air unknown) movement, no respiratory distress appreciated (unknown) (no (unknown) (unknown) Gallbladder:? (units ( unknown) date) Unremarkable.? ? unknown) (unknown) (no (unknown) (unknown) General (units (unkno wn) date) unknown) (unknown) (no (unknown) (unknown) General: Acutely (units (unknown) date) ill-appearing, unknown) pale, significantly fatigued but will respond (unknown) (no (unknown) (unknown) Globulin (1.7-4.1) (units (unknown) date) g/dL unknown) (unknown) (no (unknown) (unknown) Globulin 3.4 (units (u nknown) date) (1.7-4.1) g/dL unknown) (unknown) (no (unknown) (unknown) Glucose (80-110) (units (unknown) date) mg/dL unknown) (unknown) (no (unknown) (unknown) Glucose 262 H (units ( unknown) date) (80-110) mg/dL unknown) (unknown) (no (unknown) (unknown) HEENT: Moist (units (u nknown) date) mucous membranes, unknown) normal sclera with reactive pupils, (unknown) (no (unknown) (unknown) HPI - General (units ( unknown) date) Adult unknown) (unknown) (no (unknown) (unknown) HPI narrative: (units (unknown) date) unknown) (unknown) (no (unknown) (unknown) Hct (41-53) % (units ( unknown) date) unknown) (unknown) (no (unknown) (unknown) Hct 38.2 L (41-53) (units (unknown) date) % unknown) (unknown) (no (unknown) (unknown) He has a history (units (unknown) date) of kidney stones unknown) and 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 No (units (unk nown) date) significant unknown) findings. (unknown) (no (unknown) (unknown) Hgb (13.5-17.5) (units (unknown) date) g/dL unknown) (unknown) (no (unknown) (unknown) Hgb 13.3 L (units (unk nown) date) (13.5-17.5) g/dL unknown) (unknown) (no (unknown) (unknown) History of Present (units (unknown) date) Illness unknown) (unknown) (no (unknown) (unknown) History of kidney (units (unknown) date) stones unknown) (unknown) (no (unknown) (unknown) Home Medications (units (unknown) date) unknown) (unknown) (no (unknown) (unknown) Hyperlipidemia (units (unknown) date) unknown) (unknown) (no (unknown) (unknown) Hypertension (units (u nknown) date) unknown) (unknown) (no (unknown) (unknown) IMPRESSION:? No (units (unknown) date) abscess found, no unknown) evidence of colitis or diverticulitis, or (unknown) (no (unknown) (unknown) IMPRESSION:? (units (u nknown) date) Reduced inspiratory unknown) volume, no acute disease when this factor is (unknown) (no (unknown) (unknown) INR (0.9-1.3) (units ( unknown) date) unknown) (unknown) (no (unknown) (unknown) INR 1.6 H (units (unkn own) date) (0.9-1.3) unknown) (unknown) (no (unknown) (unknown) Image quality:? (units (unknown) date) Excellent.? unknown) (unknown) (no (unknown) (unknown) Imaging Data (units (u nknown) date) unknown) (unknown) (no (unknown) (unknown) Initial Vital (units ( unknown) date) Signs unknown) (unknown) (no (unknown) (unknown) Initial Vital (units ( unknown) date) Signs: unknown) (unknown) (no (unknown) (unknown) Initial (units (unkno wn) date) presumption was unknown) sepsis or developing sepsis. Fluid resuscitation with (unknown) (no (unknown) (unknown) Interpretation: (units (unknown) date) unknown) (unknown) (no (unknown) (unknown) [facility] (units (unknown) date) [address] unknown) [place] [address] (unknown) (no (unknown) (unknown) Kidney stones (units ( unknown) date) unknown) (unknown) (no (unknown) (unknown) Kidneys and (units (un known) date) Ureters:? 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 (unknown) (no (unknown) (unknown) Lab Data (units (unkno wn) date) unknown) (unknown) (no (unknown) (unknown) Lab Results (units (un known) date) unknown) (unknown) (no (unknown) (unknown) Label Comments: (units (unknown) date) unknown) (unknown) (no (unknown) (unknown) Labs: (units (unkno wn) date) unknown) (unknown) (no (unknown) (unknown) Lactate (0.7-2.1) (units (unknown) date) mmol/L unknown) (unknown) (no (unknown) (unknown) Lactate (Lactic (units (unknown) date) Acid) Stat unknown) (unknown) (no (unknown) (unknown) Lactate 3.0 H (units ( unknown) date) (0.7-2.1) mmol/L unknown) (unknown) (no (unknown) (unknown) Lactic elevated at (units (unknown) date) 3.0, significantly unknown) elevated procalcitonin, urine certainly (unknown) (no (unknown) (unknown) Last Admin: (units (un known) date) 01/31/22 20:17 unknown) Dose: 100 mls/hr (unknown) (no (unknown) (unknown) Last Admin: (units (un known) date) 01/31/22 20:17 unknown) Dose: 920.79 mls/hr (unknown) (no (unknown) (unknown) Last Infusion: (units (unknown) date) 01/31/22 21:10 unknown) Dose: 0 mls/hr (unknown) (no (unknown) (unknown) Left axis (units (unkn own) date) deviation unknown) (unknown) (no (unknown) (unknown) Liver:? (units (unkno wn) date) Unremarkable.? ? unknown) (unknown) (no (unknown) (unknown) Lung bases:? (units (u nknown) date) Unremarkable. unknown) (unknown) (no (unknown) (unknown) Lungs and pleura:? (units (unknown) date) Lungs are clear.? unknown) No pleural effusions or pneumothorax.? (unknown) (no (unknown) (unknown) Lymph # (Auto) Not (units (unknown) date) Reportable unknown) (unknown) (no (unknown) (unknown) Lymph # (Auto) (units (unknown) date) unknown) (unknown) (no (unknown) (unknown) Lymph % (Auto) Not (units (unknown) date) Reportable unknown) (unknown) (no (unknown) (unknown) Lymph % (Auto) (units (unknown) date) unknown) (unknown) (no (unknown) (unknown) Lymphocytes % (units ( unknown) date) (Manual) (25-45) % unknown) (unknown) (no (unknown) (unknown) Lymphocytes % (units ( unknown) date) (Manual) 5.0 L unknown) (25-45) % (unknown) (no (unknown) (unknown) [id number] (units (unk nown) date) unknown) (unknown) (no (unknown) (unknown) MCH (26-34) PG (units (unknown) date) unknown) (unknown) (no (unknown) (unknown) MCH 28.5 (26-34) (units (unknown) date) PG unknown) (unknown) (no (unknown) (unknown) MCHC (30-36) % (units (unknown) date) unknown) (unknown) (no (unknown) (unknown) MCHC 34.8 (30-36) (units (unknown) date) % unknown) (unknown) (no (unknown) (unknown) MCV (80-100) fL (units (unknown) date) unknown) (unknown) (no (unknown) (unknown) MCV 81.8 (80-100) (units (unknown) date) fL unknown) (unknown) (no (unknown) (unknown) MDM Narrative (units ( unknown) date) unknown) (unknown) (no (unknown) (unknown) Measure peak (units (u nknown) date) expiratory flow unknown) ONCE (unknown) (no (unknown) (unknown) Mediastinum:? (units ( unknown) date) Mediastinal unknown) contours are normal.? Heart size is normal.? (unknown) (no (unknown) (unknown) Medical Decision (units (unknown) date) Making unknown) (unknown) (no (unknown) (unknown) Medical History (units (unknown) date) (Updated 01/31/22 @ unknown) 21:46 by Kyleigh Castellanos MD) (unknown) (no (unknown) (unknown) Medical decision (units (unknown) date) making narrative: unknown) (unknown) (no (unknown) (unknown) Medication (units (unk nown) date) Instructions unknown) Recorded Confirmed (unknown) (no (unknown) (unknown) Medication (units (unk nown) date) Instructions unknown) Recorded (unknown) (no (unknown) (unknown) Metronidazole (units ( unknown) date) (Flagyl) 500 mg in unknown) 100 mls @ 100 mls/hr IV NOW ONE (unknown) (no (unknown) (unknown) Miscellaneous: No (units (unknown) date) hernias are seen. ? unknown) ? (unknown) (no (unknown) (unknown) [place] # (Auto) Not (units (unknown) date) Reportable unknown) (unknown) (no (unknown) (unknown) [place] # (Auto) (units ( unknown) date) unknown) (unknown) (no (unknown) (unknown) [place] % (Auto) Not (units (unknown) date) Reportable unknown) (unknown) (no (unknown) (unknown) [place] % (Auto) (units ( unknown) date) unknown) (unknown) (no (unknown) (unknown) Monocytes % (units (un known) date) (Manual) (2-11) % unknown) (unknown) (no (unknown) (unknown) Monocytes % (units (un known) date) (Manual) 1.0 L unknown) (2-11) % (unknown) (no (unknown) (unknown) Narrative: (units (unk nown) date) unknown) (unknown) (no (unknown) (unknown) Neck: No JVD, (units ( unknown) date) supple unknown) (unknown) (no (unknown) (unknown) Neurologic: (units (un known) date) Globally weak but unknown) Grossly neurologically intact with no obvious (unknown) (no (unknown) (unknown) Neut % (Auto) Not (units (unknown) date) Reportable unknown) (unknown) (no (unknown) (unknown) Neut % (Auto) (units ( unknown) date) unknown) (unknown) (no (unknown) (unknown) Neutrophils # (units ( unknown) date) (Manual) unknown) (0551-0000) /uL (unknown) (no (unknown) (unknown) Neutrophils # (units ( unknown) date) (Manual) 58464 H unknown) ([id number]) /uL (unknown) (no (unknown) (unknown) No Action (units (unkn own) date) unknown) (unknown) (no (unknown) (unknown) Ordered: (units (unkno wn) date) unknown) (unknown) (no (unknown) (unknown) Orders (units (unkno wn) date) unknown) (unknown) (no (unknown) (unknown) Oxygen Delivery (units (unknown) date) Method 01/31/22 unknown) 19:06 (unknown) (no (unknown) (unknown) Oxygen Delivery (units (unknown) date) Method Room Air unknown) Room Air (unknown) (no (unknown) (unknown) Oxygen Delivery (units (unknown) date) Method unknown) (unknown) (no (unknown) (unknown) PELVIS: (units (unkno wn) date) unknown) (unknown) (no (unknown) (unknown) PT (10.1-12.7) (units (unknown) date) SECONDS unknown) (unknown) (no (unknown) (unknown) PT 18.9 H (units (unkn own) date) (10.1-12.7) SECONDS unknown) (unknown) (no (unknown) (unknown) Pancreas:? (units (unk nown) date) Unremarkable.? ? unknown) (unknown) (no (unknown) (unknown) Partial (units (unkno wn) date) Thromboplastin Time unknown) Stat (unknown) (no (unknown) (unknown) Patient History (units (unknown) date) unknown) (unknown) (no (unknown) (unknown) Patient: (units (unkno wn) date) Pascual Padilla unknown) MR#: (unknown) (no (unknown) (unknown) Pelvic Nodes: No (units (unknown) date) enlarged lymph unknown) nodes.? (unknown) (no (unknown) (unknown) Pelvic Organs:? (units (unknown) date) Unremarkable.? ? unknown) (unknown) (no (unknown) (unknown) Penicillins (units (un known) date) Allergy Rash unknown) Verified 01/31/22 19:12 (unknown) (no (unknown) (unknown) Peritoneum:? No (units (unknown) date) abnormal unknown) intraperitoneal fluid.? No free air.? (unknown) (no (unknown) (unknown) Plt Count (units (unkn own) date) (150-400) X103/uL unknown) (unknown) (no (unknown) (unknown) Plt Count 156 (units ( unknown) date) (150-400) X103/uL unknown) (unknown) (no (unknown) (unknown) Point of care (units ( unknown) date) testing: unknown) (unknown) (no (unknown) (unknown) Potassium (units (unkn own) date) (3.4-5.1) mmol/L unknown) (unknown) (no (unknown) (unknown) Potassium 3.6 (units ( unknown) date) (3.4-5.1) mmol/L unknown) (unknown) (no (unknown) (unknown) Prescriptions: (units (unknown) date) unknown) (unknown) (no (unknown) (unknown) Previous Rx's (units ( unknown) date) unknown) (unknown) (no (unknown) (unknown) Procalcitonin (units ( unknown) date) (<0.5) ng/mL unknown) (unknown) (no (unknown) (unknown) Procalcitonin 4.70 (units (unknown) date) H (<0.5) ng/mL unknown) (unknown) (no (unknown) (unknown) Procalcitonin Stat (units (unknown) date) unknown) (unknown) (no (unknown) (unknown) Prothrombin Time (units (unknown) date) INR Stat unknown) (unknown) (no (unknown) (unknown) Psych: (units (unkno wn) date) Cooperative, unknown) significant fatigue (unknown) (no (unknown) (unknown) Pulse Oximetry 97 (units (unknown) date) 96 unknown) (unknown) (no (unknown) (unknown) Pulse Oximetry 98 (units (unknown) date) 01/31/22 19:06 unknown) (unknown) (no (unknown) (unknown) Pulse Oximetry 98 (units (unknown) date) 95 unknown) (unknown) (no (unknown) (unknown) Pulse Oximetry 98 (units (unknown) date) 97 unknown) (unknown) (no (unknown) (unknown) Pulse Oximetry 99 (units (unknown) date) unknown) (unknown) (no (unknown) (unknown) Pulse Rate 117 H (units (unknown) date) 01/31/22 19:06 unknown) (unknown) (no (unknown) (unknown) Pulse Rate 117 H (units (unknown) date) 124 H unknown) (unknown) (no (unknown) (unknown) Pulse Rate 118 H (units (unknown) date) 67 unknown) (unknown) (no (unknown) (unknown) Pulse Rate 119 H (units (unknown) date) 120 H unknown) (unknown) (no (unknown) (unknown) Pulse Rate 122 H (units (unknown) date) 116 H unknown) (unknown) (no (unknown) (unknown) Pulse Rate 122 H (units (unknown) date) unknown) (unknown) (no (unknown) (unknown) QTC prolonged at (units (unknown) date) 583 milliseconds unknown) (unknown) (no (unknown) (unknown) RBC (4.5-5.9) (units ( unknown) date) X106/uL unknown) (unknown) (no (unknown) (unknown) RBC 4.66 (4.5-5.9) (units (unknown) date) X106/uL unknown) (unknown) (no (unknown) (unknown) RBC Morphology See (units (unknown) date) below unknown) (unknown) (no (unknown) (unknown) RBC Morphology (units (unknown) date) unknown) (unknown) (no (unknown) (unknown) RDW (11.6-14.8) % (units (unknown) date) unknown) (unknown) (no (unknown) (unknown) RDW 14.0 (units (unkno wn) date) (11.6-14.8) % unknown) (unknown) (no (unknown) (unknown) RT Consult Eval (units (unknown) date) and Treat Now unknown) (unknown) (no (unknown) (unknown) Radiologist's (units ( unknown) date) Impression: unknown) (unknown) (no (unknown) (unknown) Referrals: (units (unk nown) date) unknown) (unknown) (no (unknown) (unknown) Related Data (units (u nknown) date) unknown) (unknown) (no (unknown) (unknown) Remainder of (units (u nknown) date) complete review of unknown) systems is otherwise unremarkable except for (unknown) (no (unknown) (unknown) Respiratory Rate (units (unknown) date) 30 H unknown) (unknown) (no (unknown) (unknown) Respiratory Rate (units (unknown) date) 31 H unknown) (unknown) (no (unknown) (unknown) Respiratory Rate (units (unknown) date) 35 H 01/31/22 19:06 unknown) (unknown) (no (unknown) (unknown) Respiratory Rate (units (unknown) date) 35 H unknown) (unknown) (no (unknown) (unknown) Respiratory Rate (units (unknown) date) 39 H 41 H unknown) (unknown) (no (unknown) (unknown) Respiratory Rate (units (unknown) date) 43 H unknown) (unknown) (no (unknown) (unknown) Respiratory: Lungs (units (unknown) date) are clear to unknown) auscultation, no wheezing no rales no rhonchi. (unknown) (no (unknown) (unknown) Result diagrams: (units (unknown) date) unknown) (unknown) (no (unknown) (unknown) Review of Systems (units (unknown) date) unknown) (unknown) (no (unknown) (unknown) Seg Neutrophils % (units (unknown) date) (38-70) % unknown) (unknown) (no (unknown) (unknown) Seg Neutrophils % (units (unknown) date) 82.0 H (38-70) % unknown) (unknown) (no (unknown) (unknown) Signed By: (units (unk nown) date) unknown) (unknown) (no (unknown) (unknown) Sinus tachycardia (units (unknown) date) at a rate of 116 unknown) (unknown) (no (unknown) (unknown) Skin: Pale but (units (unknown) date) otherwise Warm and unknown) dry, no rashes (unknown) (no (unknown) (unknown) Smoking Status: (units (unknown) date) Never smoker unknown) (unknown) (no (unknown) (unknown) Social History (units (unknown) date) (Reviewed 01/31/22 unknown) @ 21:45 by Kyleigh Castellanos MD) (unknown) (no (unknown) (unknown) Sodium (137-145) (units (unknown) date) mmol/L unknown) (unknown) (no (unknown) (unknown) Sodium 135 L (units (u nknown) date) (137-145) mmol/L unknown) (unknown) (no (unknown) (unknown) Sodium Chloride (units (unknown) date) (Normal Saline unknown) 0.9%) 2,762.37 mls @ 920.79 mls/hr 30 ml/kg (unknown) (no (unknown) (unknown) Spleen:? (units (unkno wn) date) Unremarkable.? ? unknown) (unknown) (no (unknown) (unknown) Stated complaint: (units (unknown) date) Vomiting, Stomach unknown) cramps, SOB (unknown) (no (unknown) (unknown) Stomach and (units (un known) date) Bowel:? Stomach, unknown) small bowel loops, and colon are unremarkable.? (unknown) (no (unknown) (unknown) Stop: 01/31/22 (units (unknown) date) 20:06 unknown) (unknown) (no (unknown) (unknown) Stop: 01/31/22 (units (unknown) date) 21:04 unknown) (unknown) (no (unknown) (unknown) Stop: 01/31/22 (units (unknown) date) 21:42 unknown) (unknown) (no (unknown) (unknown) Stop: 01/31/22 (units (unknown) date) 23:01 unknown) (unknown) (no (unknown) (unknown) Substance Use (units ( unknown) date) Type: does not use unknown) (unknown) (no (unknown) (unknown) Subtle lateral ST (units (unknown) date) depression unknown) (unknown) (no (unknown) (unknown) Surgical changes (units (unknown) date) and devices:? unknown) None.? (unknown) (no (unknown) (unknown) Temperature 98.3 F (units (unknown) date) 01/31/22 19:06 unknown) (unknown) (no (unknown) (unknown) Temperature 98.3 F (units (unknown) date) unknown) (unknown) (no (unknown) (unknown) Temperature (units (un known) date) unknown) (unknown) (no (unknown) (unknown) The left (units (unkno wn) date) unknown) (unknown) (no (unknown) (unknown) Time Seen by (units (u nknown) date) Provider: 01/31/22 unknown) 19:43 (unknown) (no (unknown) (unknown) Total Bilirubin (units (unknown) date) (0.2-1.3) mg/dL unknown) (unknown) (no (unknown) (unknown) Total Bilirubin (units (unknown) date) 2.2 H (0.2-1.3) unknown) mg/dL (unknown) (no (unknown) (unknown) Total Counted 100 (units (unknown) date) unknown) (unknown) (no (unknown) (unknown) Total Counted (units ( unknown) date) unknown) (unknown) (no (unknown) (unknown) Total Creatine (units (unknown) date) Kinase (55-170) U/L unknown) (unknown) (no (unknown) (unknown) Total Creatine (units (unknown) date) Kinase 59 (55-170) unknown) U/L (unknown) (no (unknown) (unknown) Total Protein (units ( unknown) date) (6.3-8.2) g/dL unknown) (unknown) (no (unknown) (unknown) Total Protein 7.6 (units (unknown) date) (6.3-8.2) g/dL unknown) (unknown) (no (unknown) (unknown) Troponin + CK (units ( unknown) date) Cardiac Panel Stat unknown) (unknown) (no (unknown) (unknown) Troponin I (units (unk nown) date) (0.01-0.034) ng/mL unknown) (unknown) (no (unknown) (unknown) Troponin I 0.924 (units (unknown) date) H* (0.01-0.034) unknown) ng/mL (unknown) (no (unknown) (unknown) Troponin is (units (un known) date) elevated at 0.9-4. unknown) Priors are not available. He does not have a (unknown) (no (unknown) (unknown) Type 2 diabetes (units (unknown) date) mellitus unknown) (unknown) (no (unknown) (unknown) Ur Culture (units (unk nown) date) Indicated? Specimen unknown) cultured (unknown) (no (unknown) (unknown) Ur Culture (units (unk nown) date) Indicated? unknown) (unknown) (no (unknown) (unknown) Ur Leukocyte (units (u nknown) date) Esterase (NEGATIVE) unknown) (unknown) (no (unknown) (unknown) Ur Leukocyte (units (u nknown) date) Esterase 2+ H unknown) (NEGATIVE) (unknown) (no (unknown) (unknown) Ur Specific (units (un known) date) [place] unknown) (1.000-1.035) (unknown) (no (unknown) (unknown) Ur Specific (units (un known) date) [place] 1.010 unknown) (1.000-1.035) (unknown) (no (unknown) (unknown) Ur Squamous Epith (units (unknown) date) Cells (0-5/HPF) unknown) (unknown) (no (unknown) (unknown) Ur Squamous Epith (units (unknown) date) Cells None seen unknown) (0-5/HPF) (unknown) (no (unknown) (unknown) Urinalysis and (units (unknown) date) Microscopic Stat unknown) (unknown) (no (unknown) (unknown) Urine Appearance (units (unknown) date) Sl cloudy unknown) (unknown) (no (unknown) (unknown) Urine Appearance (units (unknown) date) unknown) (unknown) (no (unknown) (unknown) Urine Bacteria (units (unknown) date) (None) unknown) (unknown) (no (unknown) (unknown) Urine Bacteria (units (unknown) date) Many (>30) H (None) unknown) (unknown) (no (unknown) (unknown) Urine Bilirubin (units (unknown) date) (NEGATIVE) unknown) (unknown) (no (unknown) (unknown) Urine Bilirubin (units (unknown) date) Negative (NEGATIVE) unknown) (unknown) (no (unknown) (unknown) Urine Color Yellow (units (unknown) date) unknown) (unknown) (no (unknown) (unknown) Urine Color (units (un known) date) unknown) (unknown) (no (unknown) (unknown) Urine Culture Stat (units (unknown) date) unknown) (unknown) (no (unknown) (unknown) Urine Dip (units (unkn own) date) unknown) (unknown) (no (unknown) (unknown) Urine Glucose (UA) (units (unknown) date) (Negative) g/dL unknown) (unknown) (no (unknown) (unknown) Urine Glucose (UA) (units (unknown) date) Negative (Negative) unknown) g/dL (unknown) (no (unknown) (unknown) Urine Ketones (units ( unknown) date) (NEGATIVE) unknown) (unknown) (no (unknown) (unknown) Urine Ketones (units ( unknown) date) Negative (NEGATIVE) unknown) (unknown) (no (unknown) (unknown) Urine Nitrate (units ( unknown) date) (Negative) unknown) (unknown) (no (unknown) (unknown) Urine Nitrate (units ( unknown) date) Negative (Negative) unknown) (unknown) (no (unknown) (unknown) Urine Occult Blood (units (unknown) date) (Negative) unknown) (unknown) (no (unknown) (unknown) Urine Occult Blood (units (unknown) date) 1+ H (Negative) unknown) (unknown) (no (unknown) (unknown) Urine Protein (units ( unknown) date) (Negative) unknown) (unknown) (no (unknown) (unknown) Urine Protein 1+ H (units (unknown) date) (Negative) unknown) (unknown) (no (unknown) (unknown) Urine RBC (units (unkn own) date) (0-5/HPF) unknown) (unknown) (no (unknown) (unknown) Urine RBC 0-1/hpf (units (unknown) date) (0-5/HPF) unknown) (unknown) (no (unknown) (unknown) Urine Specific (units (unknown) date) [place] 1.02 unknown) (unknown) (no (unknown) (unknown) Urine Urobilinogen (units (unknown) date) (0.2) E.U./dL unknown) (unknown) (no (unknown) (unknown) Urine Urobilinogen (units (unknown) date) 0.2 (0.2) E.U./dL unknown) (unknown) (no (unknown) (unknown) Urine WBC (units (unkn own) date) (0-5/HPF) unknown) (unknown) (no (unknown) (unknown) Urine WBC (units (unkn own) date) 30-100/hpf H unknown) (0-5/HPF) (unknown) (no (unknown) (unknown) Urine pH (4.5-8.0) (units (unknown) date) unknown) (unknown) (no (unknown) (unknown) Urine pH 5.0 (units (u nknown) date) (4.5-8.0) unknown) (unknown) (no (unknown) (unknown) Ventral Wall: ? No (units (unknown) date) hernias.? unknown) (unknown) (no (unknown) (unknown) Vessels:? Aorta (units (unknown) date) and inferior vena unknown) cava are normal in size.? (unknown) (no (unknown) (unknown) Vital Signs - 8 hr (units (unknown) date) unknown) (unknown) (no (unknown) (unknown) Vital Signs (units (un known) date) unknown) (unknown) (no (unknown) (unknown) Vital signs: (units (u nknown) date) unknown) (unknown) (no (unknown) (unknown) WBC (4.5-11.0) (units (unknown) date) X103/uL unknown) (unknown) (no (unknown) (unknown) WBC 29.1 H (units (unk nown) date) (4.5-11.0) X103/uL unknown) (unknown) (no (unknown) (unknown) XR chest 2V Stat (units (unknown) date) unknown) (unknown) (no (unknown) (unknown) [Embedded Image (units (unknown) date) Not Available] unknown) (unknown) (no (unknown) (unknown) a incontinence (units (unknown) date) pad. He has not unknown) been having any diarrhea or constipation. He (unknown) (no (unknown) (unknown) a slight (units (unkno wn) date) unknown) (unknown) (no (unknown) (unknown) account. (units (unkno wn) date) unknown) (unknown) (no (unknown) (unknown) alcohol intake (units (unknown) date) frequency: unknown) holidays/special occasions only (unknown) (no (unknown) (unknown) alcohol intake: (units (unknown) date) current unknown) (unknown) (no (unknown) (unknown) amlodipine 10 mg (units (unknown) date) tablet 10 mg PO unknown) DAILY 01/27/18 07/13/19 (unknown) (no (unknown) (unknown) amlodipine 10 mg (units (unknown) date) tablet unknown) (unknown) (no (unknown) (unknown) and normotensive (units (unknown) date) with oxygen unknown) saturations 99% on room air. (unknown) (no (unknown) (unknown) any significant (units (unknown) date) cough, chest pain, unknown) palpitations, lower extremity edema. He (unknown) (no (unknown) (unknown) appendicitis. (units ( unknown) date) unknown) (unknown) (no (unknown) (unknown) asymmetries or (units (unknown) date) abnormalities unknown) (unknown) (no (unknown) (unknown) been significantly (units (unknown) date) fatigued but is unknown) otherwise cognitively intact. (unknown) (no (unknown) (unknown) began with (units (unk nown) date) ceftriaxone and unknown) Flagyl thinking that this was a GI source. (unknown) (no (unknown) (unknown) by the bladder (units (unknown) date) outlet obstruction unknown) and chronic urinary retention. (unknown) (no (unknown) (unknown) chlorthalidone 50 (units (unknown) date) mg tablet 50 mg PO unknown) DAILY 01/27/18 07/13/19 (unknown) (no (unknown) (unknown) chlorthalidone 50 (units (unknown) date) mg tablet unknown) (unknown) (no (unknown) (unknown) collecting (units (unk nown) date) unknown) (unknown) (no (unknown) (unknown) degree Mya renal (units (unknown) date) edema.? A urinary unknown) tract stone, is not seen on the left. (unknown) (no (unknown) (unknown) exenatide (units (unkn own) date) microspheres 2 unknown) mg/0.85 2 mg SUBCUT QWEEK 07/05/19 07/13/19 (unknown) (no (unknown) (unknown) fatigue, overall (units (unknown) date) altered mental unknown) status, increasing abdominal pain. He denies (unknown) (no (unknown) (unknown) fenofibrate (units (un known) date) nanocrystallized unknown) 145 145 mg PO DAILY 07/05/19 07/13/19 (unknown) (no (unknown) (unknown) fenofibrate (units (un known) date) nanocrystallized unknown) 145 mg tablet (unknown) (no (unknown) (unknown) for such. He is (units (unknown) date) not complaining of unknown) chest pain. Will repeat. (unknown) (no (unknown) (unknown) has been passing (units (unknown) date) gas. Reports no unknown) significant headache. They report that he has (unknown) (no (unknown) (unknown) history of known (units (unknown) date) coronary disease unknown) but does have a all appropriate risk factors (unknown) (no (unknown) (unknown) household members: (units (unknown) date) spouse unknown) (unknown) (no (unknown) (unknown) hydronephrosis or (units (unknown) date) unknown) (unknown) (no (unknown) (unknown) hyperlipidemia, (units (unknown) date) prior kidney stones unknown) presents with 12 hours of increasing fevers, (unknown) (no (unknown) (unknown) infuse over 3 hr (units (unknown) date) (2762.37 ml) IV NOW unknown) ONE (unknown) (no (unknown) (unknown) insulin glargine (units (unknown) date) 100 unit/mL (3 26 unknown) units SUBCUT DAILY 01/27/18 07/13/19 (unknown) (no (unknown) (unknown) insulin glargine (units (unknown) date) 100 unit/mL (3 mL) unknown) insulin pen (unknown) (no (unknown) (unknown) is placed. Urine (units (unknown) date) does look acutely unknown) infected. (unknown) (no (unknown) (unknown) kidney demonstrates (units (unknown) date) slight prominence unknown) of the central renal collecting system and (unknown) (no (unknown) (unknown) levofloxacin [From (units (unknown) date) Levaquin] Allergy unknown) Rash Verified 01/31/22 19:12 (unknown) (no (unknown) (unknown) looks like a (units (u nknown) date) urinary tract unknown) infection. In the setting of acute urinary (unknown) (no (unknown) (unknown) losartan 100 mg (units (unknown) date) tablet 100 mg PO unknown) DAILY 01/27/18 07/13/19 (unknown) (no (unknown) (unknown) losartan 100 mg (units (unknown) date) tablet unknown) (unknown) (no (unknown) (unknown) mL subcutaneous (units (unknown) date) auto-injector unknown) (unknown) (no (unknown) (unknown) mL) subcutaneous (units (unknown) date) pen unknown) (unknown) (no (unknown) (unknown) metformin 500 mg (units (unknown) date) tablet 500 mg PO unknown) BID 01/27/18 07/13/19 (unknown) (no (unknown) (unknown) metformin 500 mg (units (unknown) date) tablet unknown) (unknown) (no (unknown) (unknown) mg tablet (units (unkn own) date) unknown) (unknown) (no (unknown) (unknown) minor prominence (units (unknown) date) of the renal unknown) collecting system on the left without obvious (unknown) (no (unknown) (unknown) mondays (units (unkno wn) date) unknown) (unknown) (no (unknown) (unknown) no flank pain (units ( unknown) date) unknown) (unknown) (no (unknown) (unknown) not (units (unkno wn) date) unknown) (unknown) (no (unknown) (unknown) oxycodone 5 mg (units (unknown) date) capsule 5 mg PO Q4H unknown) PRN pain #14 caps 07/13/19 (unknown) (no (unknown) (unknown) oxycodone 5 mg (units (unknown) date) capsule unknown) (unknown) (no (unknown) (unknown) pain for further (units (unknown) date) evaluation. unknown) Tachycardic, tachypneic, afebrile on presentation (unknown) (no (unknown) (unknown) pigtail right (units ( unknown) date) ureteral stent unknown) without hydronephrosis or hydroureter. Urine (unknown) (no (unknown) (unknown) pigtail (units (unkno wn) date) unknown) (unknown) (no (unknown) (unknown) retained (units (unkno wn) date) calculus.? On the unknown) left there is mild prominence of the central renal (unknown) (no (unknown) (unknown) retention, pigtail (units (unknown) date) catheter still in unknown) place and mild prominence of the collecting (unknown) (no (unknown) (unknown) right ureteral (units (unknown) date) stent.? There is no unknown) right-sided hydronephrosis or hydroureter.? (unknown) (no (unknown) (unknown) rosuvastatin 40 mg (units (unknown) date) tablet 40 mg PO unknown) DAILY 07/05/19 07/13/19 (unknown) (no (unknown) (unknown) rosuvastatin 40 mg (units (unknown) date) tablet unknown) (unknown) (no (unknown) (unknown) sample is obtained (units (unknown) date) and 1725 cc of unknown) urine are initially drained. Ramírez catheter (unknown) (no (unknown) (unknown) seen. (units (unkno wn) date) unknown) (unknown) (no (unknown) (unknown) signs of (units (unkno wn) date) obstruction. unknown) (unknown) (no (unknown) (unknown) states that he is (units (unknown) date) able to void but it unknown) is only intervals and he frequently wears (unknown) (no (unknown) (unknown) system but an (units (u nknown) date) obstructive urinary unknown) tract stone more distally within the ureter is (unknown) (no (unknown) (unknown) system on the (units ( unknown) date) right without unknown) evidence of stone urology will be consult today. (unknown) (no (unknown) (unknown) taken into (units (unk nown) date) unknown) (unknown) (no (unknown) (unknown) tamsulosin 0.4 mg (units (unknown) date) capsule 0.4 mg PO unknown) DAILY #60 caps 07/13/19 (unknown) (no (unknown) (unknown) tamsulosin 0.4 mg (units (unknown) date) capsule unknown) (unknown) (no (unknown) (unknown) that included in (units (unknown) date) the HPI. unknown) (unknown) (no (unknown) (unknown) to direct (units (unkn own) date) questions unknown) (unknown) (no (unknown) (unknown) unremarkable.? (units (unknown) date) unknown) Result panel 12 (unknown) (no (unknown) (unknown) (no value) (units (unk nown) date) unknown) (unknown) (no (unknown) (unknown) (Bydureon BCise) (units (unknown) date) unknown) (unknown) (no (unknown) (unknown) 0.4 mg PO DAILY (units (unknown) date) Qty: 60 0RF unknown) (unknown) (no (unknown) (unknown) 10 mg PO DAILY (units (unknown) date) unknown) (unknown) (no (unknown) (unknown) 01/31/22 01/31/22 (units (unknown) date) 01/31/22 unknown) Range/Units (unknown) (no (unknown) (unknown) 01/31/22 19:24 (units (unknown) date) unknown) (unknown) (no (unknown) (unknown) 01/31/22 20:00 (units (unknown) date) unknown) (unknown) (no (unknown) (unknown) 01/31/22 20:02 (units (unknown) date) unknown) (unknown) (no (unknown) (unknown) 01/31/22 20:03 (units (unknown) date) unknown) (unknown) (no (unknown) (unknown) 01/31/22 20:14 (units (unknown) date) unknown) (unknown) (no (unknown) (unknown) 01/31/22 20:28 (units (unknown) date) unknown) (unknown) (no (unknown) (unknown) 01/31/22 (units (unkno wn) date) Range/Units unknown) (unknown) (no (unknown) (unknown) 01/31/22 (units (unkno wn) date) unknown) (unknown) (no (unknown) (unknown) 100 mg PO DAILY (units (unknown) date) unknown) (unknown) (no (unknown) (unknown) 1000pm patient is (units (unknown) date) re-evaluated. He is unknown) having fever and rigors and Tylenol as (unknown) (no (unknown) (unknown) 145 mg PO DAILY (units (unknown) date) unknown) (unknown) (no (unknown) (unknown) 19:06 01/31/22 (units (unknown) date) unknown) (unknown) (no (unknown) (unknown) 19:19 01/31/22 (units (unknown) date) unknown) (unknown) (no (unknown) (unknown) 19:20 01/31/22 (units (unknown) date) unknown) (unknown) (no (unknown) (unknown) 19:20 (units (unkno wn) date) unknown) (unknown) (no (unknown) (unknown) 19:30 01/31/22 (units (unknown) date) unknown) (unknown) (no (unknown) (unknown) 19:30 (units (unkno wn) date) unknown) (unknown) (no (unknown) (unknown) 2 mg SUBCUT QWEEK (units (unknown) date) unknown) (unknown) (no (unknown) (unknown) 20:00 01/31/22 (units (unknown) date) unknown) (unknown) (no (unknown) (unknown) 20:00 20:00 20:00 (units (unknown) date) unknown) (unknown) (no (unknown) (unknown) 20:14 (units (unkno wn) date) unknown) (unknown) (no (unknown) (unknown) 20:30 01/31/22 (units (unknown) date) unknown) (unknown) (no (unknown) (unknown) 20:30 (units (unkno wn) date) unknown) (unknown) (no (unknown) (unknown) 20:45 01/31/22 (units (unknown) date) unknown) (unknown) (no (unknown) (unknown) 21:07 (units (unkno wn) date) unknown) (unknown) (no (unknown) (unknown) 21:11 01/31/22 (units (unknown) date) unknown) (unknown) (no (unknown) (unknown) 21:11 (units (unkno wn) date) unknown) (unknown) (no (unknown) (unknown) 26 units subcut (units (unknown) date) DAILY unknown) (unknown) (no (unknown) (unknown) 30 particular was (units (unknown) date) initiated. He is unknown) allergic to penicillin so rather than Zosyn (unknown) (no (unknown) (unknown) 40 mg PO DAILY (units (unknown) date) unknown) (unknown) (no (unknown) (unknown) 5 mg PO Q4H PRN (units (unknown) date) (Reason: pain) Qty: unknown) 14 0RF (unknown) (no (unknown) (unknown) 50 mg PO DAILY (units (unknown) date) unknown) (unknown) (no (unknown) (unknown) 500 mg PO BID (units ( unknown) date) unknown) (unknown) (no (unknown) (unknown) 71-year-old (units (un known) date) gentleman presents unknown) acutely ill, febrile pale with severe abdominal (unknown) (no (unknown) (unknown) 71-year-old (units (un known) date) gentleman with unknown) history of hypertension, type 2 diabetes, (unknown) (no (unknown) (unknown) ? 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 (unknown) (no (unknown) (unknown) ABDOMEN: (units (unkno wn) date) unknown) (unknown) (no (unknown) (unknown) ALT (<50) IU/L (units (unknown) date) unknown) (unknown) (no (unknown) (unknown) ALT 16 (<50) IU/L (units (unknown) date) unknown) (unknown) (no (unknown) (unknown) APTT (26-36) (units (u nknown) date) SECONDS unknown) (unknown) (no (unknown) (unknown) APTT 31 (26-36) (units (unknown) date) SECONDS unknown) (unknown) (no (unknown) (unknown) AST (17-59) IU/L (units (unknown) date) unknown) (unknown) (no (unknown) (unknown) AST 31 (17-59) (units (unknown) date) IU/L unknown) (unknown) (no (unknown) (unknown) Abdomen: Mild (units ( unknown) date) distention, diffuse unknown) abdominal pain without rebound or guarding, (unknown) (no (unknown) (unknown) Abdominal Nodes:? (units (unknown) date) No retroperitoneal unknown) or mesenteric adenopathy by size criteria.? (unknown) (no (unknown) (unknown) Acetaminophen (units ( unknown) date) (Acetaminophen 325 unknown) Mg Tablet) 975 mg PO NOW ONE (unknown) (no (unknown) (unknown) Acute kidney (units (u nknown) date) injury with unknown) creatinine increased from 1.3-1.6. Likely compounded (unknown) (no (unknown) (unknown) Acute (units (unkno wn) date) pyelonephritis, unknown) Sepsis, Benign prostatic hyperplasia, Acute urinary (unknown) (no (unknown) (unknown) Additional (units (unk nown) date) Information: unknown) (unknown) (no (unknown) (unknown) Admin: 01/31/22 (units (unknown) date) 20:13 Dose: 200 unknown) mls/hr (unknown) (no (unknown) (unknown) Adrenal Glands:? (units (unknown) date) Unremarkable.? ? unknown) (unknown) (no (unknown) (unknown) Age/Sex: 71 / M (units (unknown) date) unknown) (unknown) (no (unknown) (unknown) Albumin (3.5-5.0) (units (unknown) date) g/dL unknown) (unknown) (no (unknown) (unknown) Albumin 4.2 (units (un known) date) (3.5-5.0) g/dL unknown) (unknown) (no (unknown) (unknown) Albumin/Globulin (units (unknown) date) Ratio (1.0-2.8) unknown) (unknown) (no (unknown) (unknown) Albumin/Globulin (units (unknown) date) Ratio 1.2 (1.0-2.8) unknown) (unknown) (no (unknown) (unknown) Alkaline (units (unkno wn) date) Phosphatase unknown) (38-126) U/L (unknown) (no (unknown) (unknown) Alkaline (units (unkno wn) date) Phosphatase 66 unknown) (38-126) U/L (unknown) (no (unknown) (unknown) Allergies (units (unkn own) date) unknown) (unknown) (no (unknown) (unknown) Allergy/AdvReac (units (unknown) date) Type Severity unknown) Reaction Status Date / Time (unknown) (no (unknown) (unknown) Anisocytosis 1+ H (units (unknown) date) unknown) (unknown) (no (unknown) (unknown) Anisocytosis (units (u nknown) date) unknown) (unknown) (no (unknown) (unknown) 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, unknown) Ramírez catheter now in place (unknown) (no (unknown) (unknown) BUN (9-20) mg/dL (units (unknown) date) unknown) (unknown) (no (unknown) (unknown) BUN 22 H (9-20) (units (unknown) date) mg/dL unknown) (unknown) (no (unknown) (unknown) BUN/Creatinine (units (unknown) date) Ratio (6-22) unknown) (unknown) (no (unknown) (unknown) BUN/Creatinine (units (unknown) date) Ratio 13.8 (6-22) unknown) (unknown) (no (unknown) (unknown) Band Neutrophils % (units (unknown) date) (3-7) % unknown) (unknown) (no (unknown) (unknown) Band Neutrophils % (units (unknown) date) 12.0 H (3-7) % unknown) (unknown) (no (unknown) (unknown) Baso # (Auto) Not (units (unknown) date) Reportable unknown) (unknown) (no (unknown) (unknown) Baso # (Auto) (units ( unknown) date) unknown) (unknown) (no (unknown) (unknown) Baso % (Auto) Not (units (unknown) date) Reportable unknown) (unknown) (no (unknown) (unknown) Baso % (Auto) (units ( unknown) date) unknown) (unknown) (no (unknown) (unknown) Bedside Urine (units ( unknown) date) Bilirubin - unknown) Negative (unknown) (no (unknown) (unknown) Bedside Urine (units ( unknown) date) Glucose Negative unknown) (unknown) (no (unknown) (unknown) Bedside Urine (units ( unknown) date) Ketone - Negative unknown) (unknown) (no (unknown) (unknown) Bedside Urine (units ( unknown) date) Leukocytes + 70 unknown) (unknown) (no (unknown) (unknown) Bedside Urine (units ( unknown) date) Nitrite - Negative unknown) (unknown) (no (unknown) (unknown) Bedside Urine (units ( unknown) date) Occult Blood +/ unknown) (unknown) (no (unknown) (unknown) Bedside Urine (units ( unknown) date) Protein + 30 unknown) (unknown) (no (unknown) (unknown) Bedside Urine (units ( unknown) date) Urobilinogen - unknown) Negative (unknown) (no (unknown) (unknown) Bedside Urine pH 6 (units (unknown) date) unknown) (unknown) (no (unknown) (unknown) Biliary ducts:? (units (unknown) date) Unremarkable.? ? unknown) (unknown) (no (unknown) (unknown) Bladder:? (units (unkn own) date) Unremarkable.? ? unknown) (unknown) (no (unknown) (unknown) Blood Culture Stat (units (unknown) date) unknown) (unknown) (no (unknown) (unknown) Blood Pressure (units (unknown) date) 127/80 unknown) (unknown) (no (unknown) (unknown) Blood Pressure (units (unknown) date) 132/79 unknown) (unknown) (no (unknown) (unknown) Blood Pressure (units (unknown) date) 134/75 10 unknown) 19:06 (unknown) (no (unknown) (unknown) Blood Pressure (units (unknown) date) 134/75 139/80 unknown) (unknown) (no (unknown) (unknown) Blood Pressure (units (unknown) date) 136/78 unknown) (unknown) (no (unknown) (unknown) Blood Pressure (units (unknown) date) 137/76 unknown) (unknown) (no (unknown) (unknown) Bones and chest (units (unknown) date) wall:? No unknown) suspicious bony abnormalities.? Soft tissues appear (unknown) (no (unknown) (unknown) Bones:? (units (unkno wn) date) Unremarkable.? ? unknown) (unknown) (no (unknown) (unknown) Bydureon BCise 2 (units (unknown) date) mg/0.85 mL unknown) auto-injector (unknown) (no (unknown) (unknown) CK-MB (CK-2) Rel (units (unknown) date) Index TNP unknown) (unknown) (no (unknown) (unknown) CK-MB (CK-2) Rel (units (unknown) date) Index unknown) (unknown) (no (unknown) (unknown) CK-MB (CK-2) TNP (units (unknown) date) unknown) (unknown) (no (unknown) (unknown) CK-MB (CK-2) (units (u nknown) date) unknown) (unknown) (no (unknown) (unknown) CT abdomen pelvis (units (unknown) date) w con Stat unknown) (unknown) (no (unknown) (unknown) CT scan - (units (unkn own) date) abdomen/pelvis: unknown) (unknown) (no (unknown) (unknown) CT scan does not (units (unknown) date) suggest acute unknown) abscess, diverticulitis or appendicitis. Some (unknown) (no (unknown) (unknown) Calcium (8.4-10.2) (units (unknown) date) mg/dL unknown) (unknown) (no (unknown) (unknown) Calcium 8.1 L (units ( unknown) date) (8.4-10.2) mg/dL unknown) (unknown) (no (unknown) (unknown) Carbon Dioxide (units (unknown) date) (22-32) mmol/L unknown) (unknown) (no (unknown) (unknown) Carbon Dioxide 23 (units (unknown) date) (22-32) mmol/L unknown) (unknown) (no (unknown) (unknown) Cardiac: (units (unkno wn) date) Tachycardic without unknown) murmurs (unknown) (no (unknown) (unknown) Ceftriaxone Sodium (units (unknown) date) 2,000 mg/ (Sodium unknown) Chloride) 100 mls @ 200 mls/hr IV NOW ONE (unknown) (no (unknown) (unknown) Chest x-ray: (units (u nknown) date) unknown) (unknown) (no (unknown) (unknown) Chief complaint: (units (unknown) date) Abdominal Pain unknown) (unknown) (no (unknown) (unknown) Chloride (98-107) (units (unknown) date) mmol/L unknown) (unknown) (no (unknown) (unknown) Chloride 96 L (units ( unknown) date) (98-107) mmol/L unknown) (unknown) (no (unknown) (unknown) Jillian Rosales, (units (unknown) date) MD [Primary Care unknown) Provider] (unknown) (no (unknown) (unknown) Clinical (units (unkno wn) date) Impression: unknown) (unknown) (no (unknown) (unknown) Clinical reason (units (unknown) date) for NOT initiating unknown) fluid bolus: (unknown) (no (unknown) (unknown) Complete Blood (units (unknown) date) Count AUTO DIFF unknown) Stat (unknown) (no (unknown) (unknown) Comprehensive (units ( unknown) date) Metabolic Panel unknown) Stat (unknown) (no (unknown) (unknown) Course (units (unkno wn) date) unknown) (unknown) (no (unknown) (unknown) Creatinine (units (unk nown) date) (0.66-1.25) mg/dL unknown) (unknown) (no (unknown) (unknown) Creatinine 1.60 H (units (unknown) date) (0.66-1.25) mg/dL unknown) (unknown) (no (unknown) (unknown) D Dimer Stat (units (u nknown) date) unknown) (unknown) (no (unknown) (unknown) D-Dimer (<500) (units (unknown) date) ng/ml unknown) (unknown) (no (unknown) (unknown) D-Dimer 821 H (units ( unknown) date) (<500) ng/ml unknown) (unknown) (no (unknown) (unknown) : 1950 (units (unknown) date) Acct:[id number] unknown) (unknown) (no (unknown) (unknown) Date of Service: (units (unknown) date) 01/31/22 unknown) (unknown) (no (unknown) (unknown) Departure (units (unkn own) date) unknown) (unknown) (no (unknown) (unknown) Dictated by: Dwayne (units (unknown) date) Jody Meadows on unknown) 01/31/2022 at 20:08 ? ? (unknown) (no (unknown) (unknown) Dictated by: Dwayne (units (unknown) date) Jody Meadows on unknown) 01/31/2022 at 21:21 ? ? (unknown) (no (unknown) (unknown) Discharge Plan (units (unknown) date) unknown) (unknown) (no (unknown) (unknown) Discontinued (units (u nknown) date) Medications unknown) (unknown) (no (unknown) (unknown) Documented By: NR (units (unknown) date) unknown) (unknown) (no (unknown) (unknown) ECG Data (units (unkno wn) date) unknown) (unknown) (no (unknown) (unknown) ED Orders (units (unkn own) date) unknown) (unknown) (no (unknown) (unknown) EKG-12 Lead Stat (units (unknown) date) unknown) (unknown) (no (unknown) (unknown) ER Physician: (units ( unknown) date) Kyleigh Castellanos MD unknown) (unknown) (no (unknown) (unknown) Emergency Report (units (unknown) date) unknown) (unknown) (no (unknown) (unknown) Eos % (Auto) Not (units (unknown) date) Reportable unknown) (unknown) (no (unknown) (unknown) Eos % (Auto) (units (u nknown) date) unknown) (unknown) (no (unknown) (unknown) Esterase (units (unkno wn) date) unknown) (unknown) (no (unknown) (unknown) Estimated GFR (units ( unknown) date) (>60) mL/min unknown) (unknown) (no (unknown) (unknown) Estimated GFR 45 L (units (unknown) date) (>60) mL/min unknown) (unknown) (no (unknown) (unknown) Exam (units (unkno wn) date) unknown) (unknown) (no (unknown) (unknown) Extremities: No (units (unknown) date) trauma, well unknown) perfused (unknown) (no (unknown) (unknown) FINDINGS:? (units (unk nown) date) unknown) (unknown) (no (unknown) (unknown) Full and (units (unkno wn) date) symmetrical air unknown) movement, no respiratory distress appreciated (unknown) (no (unknown) (unknown) Gallbladder:? (units ( unknown) date) Unremarkable.? ? unknown) (unknown) (no (unknown) (unknown) General (units (unkno wn) date) unknown) (unknown) (no (unknown) (unknown) General: Acutely (units (unknown) date) ill-appearing, unknown) pale, significantly fatigued but will respond (unknown) (no (unknown) (unknown) Globulin (1.7-4.1) (units (unknown) date) g/dL unknown) (unknown) (no (unknown) (unknown) Globulin 3.4 (units (u nknown) date) (1.7-4.1) g/dL unknown) (unknown) (no (unknown) (unknown) Glucose (80-110) (units (unknown) date) mg/dL unknown) (unknown) (no (unknown) (unknown) Glucose 262 H (units ( unknown) date) (80-110) mg/dL unknown) (unknown) (no (unknown) (unknown) Goal directed (units ( unknown) date) therapy within 3 unknown) hours of septic shock or initial hypotension (unknown) (no (unknown) (unknown) Goal directed (units ( unknown) date) treatment unknown) (unknown) (no (unknown) (unknown) HEENT: Moist (units (u nknown) date) mucous membranes, unknown) normal sclera with reactive pupils, (unknown) (no (unknown) (unknown) HPI - General (units ( unknown) date) Adult unknown) (unknown) (no (unknown) (unknown) HPI narrative: (units (unknown) date) unknown) (unknown) (no (unknown) (unknown) Hct (41-53) % (units ( unknown) date) unknown) (unknown) (no (unknown) (unknown) Hct 38.2 L (41-53) (units (unknown) date) % unknown) (unknown) (no (unknown) (unknown) He has a history (units (unknown) date) of kidney stones unknown) and 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 No (units (unk nown) date) significant unknown) findings. (unknown) (no (unknown) (unknown) Hgb (13.5-17.5) (units (unknown) date) g/dL unknown) (unknown) (no (unknown) (unknown) Hgb 13.3 L (units (unk nown) date) (13.5-17.5) g/dL unknown) (unknown) (no (unknown) (unknown) History of Present (units (unknown) date) Illness unknown) (unknown) (no (unknown) (unknown) History of kidney (units (unknown) date) stones unknown) (unknown) (no (unknown) (unknown) Home Medications (units (unknown) date) unknown) (unknown) (no (unknown) (unknown) Hyperlipidemia (units (unknown) date) unknown) (unknown) (no (unknown) (unknown) Hypertension (units (u nknown) date) unknown) (unknown) (no (unknown) (unknown) IMPRESSION:? No (units (unknown) date) abscess found, no unknown) evidence of colitis or diverticulitis, or (unknown) (no (unknown) (unknown) IMPRESSION:? (units (u nknown) date) Reduced inspiratory unknown) volume, no acute disease when this factor is (unknown) (no (unknown) (unknown) INR (0.9-1.3) (units ( unknown) date) unknown) (unknown) (no (unknown) (unknown) INR 1.6 H (units (unkn own) date) (0.9-1.3) unknown) (unknown) (no (unknown) (unknown) Image quality:? (units (unknown) date) Excellent.? unknown) (unknown) (no (unknown) (unknown) Imaging Data (units (u nknown) date) unknown) (unknown) (no (unknown) (unknown) Initial Vital (units ( unknown) date) Signs unknown) (unknown) (no (unknown) (unknown) Initial Vital (units ( unknown) date) Signs: unknown) (unknown) (no (unknown) (unknown) Initial (units (unkno wn) date) presumption was unknown) sepsis or developing sepsis. Fluid resuscitation with (unknown) (no (unknown) (unknown) Interpretation: (units (unknown) date) unknown) (unknown) (no (unknown) (unknown) [facility] (units (unknown) date) [address] unknown) [place] [address] (unknown) (no (unknown) (unknown) Kidney stones (units ( unknown) date) unknown) (unknown) (no (unknown) (unknown) Kidneys and (units (un known) date) Ureters:? 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 (unknown) (no (unknown) (unknown) Lab Data (units (unkno wn) date) unknown) (unknown) (no (unknown) (unknown) Lab Results (units (un known) date) unknown) (unknown) (no (unknown) (unknown) Label Comments: (units (unknown) date) unknown) (unknown) (no (unknown) (unknown) Labs: (units (unkno wn) date) unknown) (unknown) (no (unknown) (unknown) Lactate (0.7-2.1) (units (unknown) date) mmol/L unknown) (unknown) (no (unknown) (unknown) Lactate (Lactic (units (unknown) date) Acid) Stat unknown) (unknown) (no (unknown) (unknown) Lactate 3.0 H (units ( unknown) date) (0.7-2.1) mmol/L unknown) (unknown) (no (unknown) (unknown) Lactic elevated at (units (unknown) date) 3.0, significantly unknown) elevated procalcitonin, urine certainly (unknown) (no (unknown) (unknown) Last Admin: (units (un known) date) 01/31/22 20:17 unknown) Dose: 100 mls/hr (unknown) (no (unknown) (unknown) Last Admin: (units (un known) date) 01/31/22 20:17 unknown) Dose: 920.79 mls/hr (unknown) (no (unknown) (unknown) Last Infusion: (units (unknown) date) 01/31/22 21:10 unknown) Dose: 0 mls/hr (unknown) (no (unknown) (unknown) Left axis (units (unkn own) date) deviation unknown) (unknown) (no (unknown) (unknown) Liver:? (units (unkno wn) date) Unremarkable.? ? unknown) (unknown) (no (unknown) (unknown) Lung bases:? (units (u nknown) date) Unremarkable. unknown) (unknown) (no (unknown) (unknown) Lungs and pleura:? (units (unknown) date) Lungs are clear.? unknown) No pleural effusions or pneumothorax.? (unknown) (no (unknown) (unknown) Lymph # (Auto) Not (units (unknown) date) Reportable unknown) (unknown) (no (unknown) (unknown) Lymph # (Auto) (units (unknown) date) unknown) (unknown) (no (unknown) (unknown) Lymph % (Auto) Not (units (unknown) date) Reportable unknown) (unknown) (no (unknown) (unknown) Lymph % (Auto) (units (unknown) date) unknown) (unknown) (no (unknown) (unknown) Lymphocytes % (units ( unknown) date) (Manual) (25-45) % unknown) (unknown) (no (unknown) (unknown) Lymphocytes % (units ( unknown) date) (Manual) 5.0 L unknown) (25-45) % (unknown) (no (unknown) (unknown) [id number] (units (unk nown) date) unknown) (unknown) (no (unknown) (unknown) MCH (26-34) PG (units (unknown) date) unknown) (unknown) (no (unknown) (unknown) MCH 28.5 (26-34) (units (unknown) date) PG unknown) (unknown) (no (unknown) (unknown) MCHC (30-36) % (units (unknown) date) unknown) (unknown) (no (unknown) (unknown) MCHC 34.8 (30-36) (units (unknown) date) % unknown) (unknown) (no (unknown) (unknown) MCV (80-100) fL (units (unknown) date) unknown) (unknown) (no (unknown) (unknown) MCV 81.8 (80-100) (units (unknown) date) fL unknown) (unknown) (no (unknown) (unknown) MDM Narrative (units ( unknown) date) unknown) (unknown) (no (unknown) (unknown) Measure peak (units (u nknown) date) expiratory flow unknown) ONCE (unknown) (no (unknown) (unknown) Mediastinum:? (units ( unknown) date) Mediastinal unknown) contours are normal.? Heart size is normal.? (unknown) (no (unknown) (unknown) Medical Decision (units (unknown) date) Making unknown) (unknown) (no (unknown) (unknown) Medical History (units (unknown) date) (Updated 01/31/22 @ unknown) 22:11 by Kyleigh Castellanos MD) (unknown) (no (unknown) (unknown) Medical decision (units (unknown) date) making narrative: unknown) (unknown) (no (unknown) (unknown) Medication (units (unk nown) date) Instructions unknown) Recorded Confirmed (unknown) (no (unknown) (unknown) Medication (units (unk nown) date) Instructions unknown) Recorded (unknown) (no (unknown) (unknown) Metronidazole (units ( unknown) date) (Flagyl) 500 mg in unknown) 100 mls @ 100 mls/hr IV NOW ONE (unknown) (no (unknown) (unknown) Miscellaneous: No (units (unknown) date) hernias are seen. ? unknown) ? (unknown) (no (unknown) (unknown) [place] # (Auto) Not (units (unknown) date) Reportable unknown) (unknown) (no (unknown) (unknown) [place] # (Auto) (units ( unknown) date) unknown) (unknown) (no (unknown) (unknown) [place] % (Auto) Not (units (unknown) date) Reportable unknown) (unknown) (no (unknown) (unknown) [place] % (Auto) (units ( unknown) date) unknown) (unknown) (no (unknown) (unknown) Monocytes % (units (un known) date) (Manual) (2-11) % unknown) (unknown) (no (unknown) (unknown) Monocytes % (units (un known) date) (Manual) 1.0 L unknown) (2-11) % (unknown) (no (unknown) (unknown) Must include vital (units (unknown) date) signs, unknown) cardiopulmonary exam, capillary refill, (unknown) (no (unknown) (unknown) Narrative: (units (unk nown) date) unknown) (unknown) (no (unknown) (unknown) Neck: No JVD, (units ( unknown) date) supple unknown) (unknown) (no (unknown) (unknown) Neurologic: (units (un known) date) Globally weak but unknown) Grossly neurologically intact with no obvious (unknown) (no (unknown) (unknown) Neut % (Auto) Not (units (unknown) date) Reportable unknown) (unknown) (no (unknown) (unknown) Neut % (Auto) (units ( unknown) date) unknown) (unknown) (no (unknown) (unknown) Neutrophils # (units ( unknown) date) (Manual) unknown) ([id number]) /uL (unknown) (no (unknown) (unknown) Neutrophils # (units ( unknown) date) (Manual) 61200 H unknown) ([phone]) /uL (unknown) (no (unknown) (unknown) No Action (units (unkn own) date) unknown) (unknown) (no (unknown) (unknown) Ordered: (units (unkno wn) date) unknown) (unknown) (no (unknown) (unknown) Orders (units (unkno wn) date) unknown) (unknown) (no (unknown) (unknown) Oxygen Delivery (units (unknown) date) Method 01/31/22 unknown) 19:06 (unknown) (no (unknown) (unknown) Oxygen Delivery (units (unknown) date) Method Room Air unknown) Room Air (unknown) (no (unknown) (unknown) Oxygen Delivery (units (unknown) date) Method unknown) (unknown) (no (unknown) (unknown) PELVIS: (units (unkno wn) date) unknown) (unknown) (no (unknown) (unknown) PT (10.1-12.7) (units (unknown) date) SECONDS unknown) (unknown) (no (unknown) (unknown) PT 18.9 H (units (unkn own) date) (10.1-12.7) SECONDS unknown) (unknown) (no (unknown) (unknown) Pancreas:? (units (unk nown) date) Unremarkable.? ? unknown) (unknown) (no (unknown) (unknown) Partial (units (unkno wn) date) Thromboplastin Time unknown) Stat (unknown) (no (unknown) (unknown) Patient History (units (unknown) date) unknown) (unknown) (no (unknown) (unknown) Patient: (units (unkno wn) date) Pascual Padilla unknown) MR#: (unknown) (no (unknown) (unknown) Pelvic Nodes: No (units (unknown) date) enlarged lymph unknown) nodes.? (unknown) (no (unknown) (unknown) Pelvic Organs:? (units (unknown) date) Unremarkable.? ? unknown) (unknown) (no (unknown) (unknown) Penicillins (units (un known) date) Allergy Rash unknown) Verified 01/31/22 19:12 (unknown) (no (unknown) (unknown) Peritoneum:? No (units (unknown) date) abnormal unknown) intraperitoneal fluid.? No free air.? (unknown) (no (unknown) (unknown) Plt Count (units (unkn own) date) (150-400) X103/uL unknown) (unknown) (no (unknown) (unknown) Plt Count 156 (units ( unknown) date) (150-400) X103/uL unknown) (unknown) (no (unknown) (unknown) Point of care (units ( unknown) date) testing: unknown) (unknown) (no (unknown) (unknown) Potassium (units (unkn own) date) (3.4-5.1) mmol/L unknown) (unknown) (no (unknown) (unknown) Potassium 3.6 (units ( unknown) date) (3.4-5.1) mmol/L unknown) (unknown) (no (unknown) (unknown) Prescriptions: (units (unknown) date) unknown) (unknown) (no (unknown) (unknown) Previous Rx's (units ( unknown) date) unknown) (unknown) (no (unknown) (unknown) Procalcitonin (units ( unknown) date) (<0.5) ng/mL unknown) (unknown) (no (unknown) (unknown) Procalcitonin 4.70 (units (unknown) date) H (<0.5) ng/mL unknown) (unknown) (no (unknown) (unknown) Procalcitonin Stat (units (unknown) date) unknown) (unknown) (no (unknown) (unknown) Prothrombin Time (units (unknown) date) INR Stat unknown) (unknown) (no (unknown) (unknown) Psych: (units (unkno wn) date) Cooperative, unknown) significant fatigue (unknown) (no (unknown) (unknown) Pulse Oximetry 97 (units (unknown) date) 96 unknown) (unknown) (no (unknown) (unknown) Pulse Oximetry 98 (units (unknown) date) 01/31/22 19:06 unknown) (unknown) (no (unknown) (unknown) Pulse Oximetry 98 (units (unknown) date) 95 unknown) (unknown) (no (unknown) (unknown) Pulse Oximetry 98 (units (unknown) date) 97 unknown) (unknown) (no (unknown) (unknown) Pulse Oximetry 99 (units (unknown) date) unknown) (unknown) (no (unknown) (unknown) Pulse Rate 117 H (units (unknown) date) 01/31/22 19:06 unknown) (unknown) (no (unknown) (unknown) Pulse Rate 117 H (units (unknown) date) 124 H unknown) (unknown) (no (unknown) (unknown) Pulse Rate 118 H (units (unknown) date) 67 unknown) (unknown) (no (unknown) (unknown) Pulse Rate 119 H (units (unknown) date) 120 H unknown) (unknown) (no (unknown) (unknown) Pulse Rate 122 H (units (unknown) date) 116 H unknown) (unknown) (no (unknown) (unknown) Pulse Rate 122 H (units (unknown) date) unknown) (unknown) (no (unknown) (unknown) QTC prolonged at (units (unknown) date) 583 milliseconds unknown) (unknown) (no (unknown) (unknown) RBC (4.5-5.9) (units ( unknown) date) X106/uL unknown) (unknown) (no (unknown) (unknown) RBC 4.66 (4.5-5.9) (units (unknown) date) X106/uL unknown) (unknown) (no (unknown) (unknown) RBC Morphology See (units (unknown) date) below unknown) (unknown) (no (unknown) (unknown) RBC Morphology (units (unknown) date) unknown) (unknown) (no (unknown) (unknown) RDW (11.6-14.8) % (units (unknown) date) unknown) (unknown) (no (unknown) (unknown) RDW 14.0 (units (unkno wn) date) (11.6-14.8) % unknown) (unknown) (no (unknown) (unknown) RT Consult Eval (units (unknown) date) and Treat Now unknown) (unknown) (no (unknown) (unknown) Radiologist's (units ( unknown) date) Impression: unknown) (unknown) (no (unknown) (unknown) Referrals: (units (unk nown) date) unknown) (unknown) (no (unknown) (unknown) Related Data (units (u nknown) date) unknown) (unknown) (no (unknown) (unknown) Remainder of (units (u nknown) date) complete review of unknown) systems is otherwise unremarkable except for (unknown) (no (unknown) (unknown) Respiratory Rate (units (unknown) date) 30 H unknown) (unknown) (no (unknown) (unknown) Respiratory Rate (units (unknown) date) 31 H unknown) (unknown) (no (unknown) (unknown) Respiratory Rate (units (unknown) date) 35 H 01/31/22 19:06 unknown) (unknown) (no (unknown) (unknown) Respiratory Rate (units (unknown) date) 35 H unknown) (unknown) (no (unknown) (unknown) Respiratory Rate (units (unknown) date) 39 H 41 H unknown) (unknown) (no (unknown) (unknown) Respiratory Rate (units (unknown) date) 43 H unknown) (unknown) (no (unknown) (unknown) Respiratory: Lungs (units (unknown) date) are clear to unknown) auscultation, no wheezing no rales no rhonchi. (unknown) (no (unknown) (unknown) Result diagrams: (units (unknown) date) unknown) (unknown) (no (unknown) (unknown) Review of Systems (units (unknown) date) unknown) (unknown) (no (unknown) (unknown) Seg Neutrophils % (units (unknown) date) (38-70) % unknown) (unknown) (no (unknown) (unknown) Seg Neutrophils % (units (unknown) date) 82.0 H (38-70) % unknown) (unknown) (no (unknown) (unknown) Septic Shock (units (u nknown) date) Criteria unknown) (unknown) (no (unknown) (unknown) Septic Shock (units (u nknown) date) Determination. the unknown) patient has been screened and (unknown) (no (unknown) (unknown) Severe Sepsis (units ( unknown) date) Criteria unknown) (unknown) (no (unknown) (unknown) Severe Sepsis (units ( unknown) date) Determination. the unknown) patient has been screened and (unknown) (no (unknown) (unknown) Signed By: (units (unk nown) date) unknown) (unknown) (no (unknown) (unknown) Sinus tachycardia (units (unknown) date) at a rate of 116 unknown) (unknown) (no (unknown) (unknown) Skin: Pale but (units (unknown) date) otherwise Warm and unknown) dry, no rashes (unknown) (no (unknown) (unknown) Smoking Status: (units (unknown) date) Never smoker unknown) (unknown) (no (unknown) (unknown) Social History (units (unknown) date) (Reviewed 01/31/22 unknown) @ 21:45 by Kyleigh Castellanos MD) (unknown) (no (unknown) (unknown) Sodium (137-145) (units (unknown) date) mmol/L unknown) (unknown) (no (unknown) (unknown) Sodium 135 L (units (u nknown) date) (137-145) mmol/L unknown) (unknown) (no (unknown) (unknown) Sodium Chloride (units (unknown) date) (Normal Saline unknown) 0.9%) 2,762.37 mls @ 920.79 mls/hr 30 ml/kg (unknown) (no (unknown) (unknown) Spleen:? (units (unkno wn) date) Unremarkable.? ? unknown) (unknown) (no (unknown) (unknown) Stated complaint: (units (unknown) date) Vomiting, Stomach unknown) cramps, SOB (unknown) (no (unknown) (unknown) Stomach and (units (un known) date) Bowel:? Stomach, unknown) small bowel loops, and colon are unremarkable.? (unknown) (no (unknown) (unknown) Stop: 01/31/22 (units (unknown) date) 20:06 unknown) (unknown) (no (unknown) (unknown) Stop: 01/31/22 (units (unknown) date) 21:04 unknown) (unknown) (no (unknown) (unknown) Stop: 01/31/22 (units (unknown) date) 21:42 unknown) (unknown) (no (unknown) (unknown) Stop: 01/31/22 (units (unknown) date) 23:01 unknown) (unknown) (no (unknown) (unknown) Substance Use (units ( unknown) date) Type: does not use unknown) (unknown) (no (unknown) (unknown) Subtle lateral ST (units (unknown) date) depression unknown) (unknown) (no (unknown) (unknown) Surgical changes (units (unknown) date) and devices:? unknown) None.? (unknown) (no (unknown) (unknown) Temperature 98.3 F (units (unknown) date) 01/31/22 19:06 unknown) (unknown) (no (unknown) (unknown) Temperature 98.3 F (units (unknown) date) unknown) (unknown) (no (unknown) (unknown) Temperature (units (un known) date) unknown) (unknown) (no (unknown) (unknown) The left (units (unkno wn) date) unknown) (unknown) (no (unknown) (unknown) Time Seen by (units (u nknown) date) Provider: 01/31/22 unknown) 19:43 (unknown) (no (unknown) (unknown) Time Septic Shock (units (unknown) date) diagnosed: [ ] unknown) (unknown) (no (unknown) (unknown) Total Bilirubin (units (unknown) date) (0.2-1.3) mg/dL unknown) (unknown) (no (unknown) (unknown) Total Bilirubin (units (unknown) date) 2.2 H (0.2-1.3) unknown) mg/dL (unknown) (no (unknown) (unknown) Total Counted 100 (units (unknown) date) unknown) (unknown) (no (unknown) (unknown) Total Counted (units ( unknown) date) unknown) (unknown) (no (unknown) (unknown) Total Creatine (units (unknown) date) Kinase (55-170) U/L unknown) (unknown) (no (unknown) (unknown) Total Creatine (units (unknown) date) Kinase 59 (55-170) unknown) U/L (unknown) (no (unknown) (unknown) Total Protein (units ( unknown) date) (6.3-8.2) g/dL unknown) (unknown) (no (unknown) (unknown) Total Protein 7.6 (units (unknown) date) (6.3-8.2) g/dL unknown) (unknown) (no (unknown) (unknown) Troponin + CK (units ( unknown) date) Cardiac Panel Stat unknown) (unknown) (no (unknown) (unknown) Troponin I (units (unk nown) date) (0.01-0.034) ng/mL unknown) (unknown) (no (unknown) (unknown) Troponin I 0.924 (units (unknown) date) H* (0.01-0.034) unknown) ng/mL (unknown) (no (unknown) (unknown) Troponin is (units (un known) date) elevated at 0.9-4. unknown) Priors are not available. He does not have a (unknown) (no (unknown) (unknown) Type 2 diabetes (units (unknown) date) mellitus unknown) (unknown) (no (unknown) (unknown) Ur Culture (units (unk nown) date) Indicated? Specimen unknown) cultured (unknown) (no (unknown) (unknown) Ur Culture (units (unk nown) date) Indicated? unknown) (unknown) (no (unknown) (unknown) Ur Leukocyte (units (u nknown) date) Esterase (NEGATIVE) unknown) (unknown) (no (unknown) (unknown) Ur Leukocyte (units (u nknown) date) Esterase 2+ H unknown) (NEGATIVE) (unknown) (no (unknown) (unknown) Ur Specific (units (un known) date) [place] unknown) (1.000-1.035) (unknown) (no (unknown) (unknown) Ur Specific (units (un known) date) [place] 1.010 unknown) (1.000-1.035) (unknown) (no (unknown) (unknown) Ur Squamous Epith (units (unknown) date) Cells (0-5/HPF) unknown) (unknown) (no (unknown) (unknown) Ur Squamous Epith (units (unknown) date) Cells None seen unknown) (0-5/HPF) (unknown) (no (unknown) (unknown) Urinalysis and (units (unknown) date) Microscopic Stat unknown) (unknown) (no (unknown) (unknown) Urine Appearance (units (unknown) date) Sl cloudy unknown) (unknown) (no (unknown) (unknown) Urine Appearance (units (unknown) date) unknown) (unknown) (no (unknown) (unknown) Urine Bacteria (units (unknown) date) (None) unknown) (unknown) (no (unknown) (unknown) Urine Bacteria (units (unknown) date) Many (>30) H (None) unknown) (unknown) (no (unknown) (unknown) Urine Bilirubin (units (unknown) date) (NEGATIVE) unknown) (unknown) (no (unknown) (unknown) Urine Bilirubin (units (unknown) date) Negative (NEGATIVE) unknown) (unknown) (no (unknown) (unknown) Urine Color Yellow (units (unknown) date) unknown) (unknown) (no (unknown) (unknown) Urine Color (units (un known) date) unknown) (unknown) (no (unknown) (unknown) Urine Culture Stat (units (unknown) date) unknown) (unknown) (no (unknown) (unknown) Urine Dip (units (unkn own) date) unknown) (unknown) (no (unknown) (unknown) Urine Glucose (UA) (units (unknown) date) (Negative) g/dL unknown) (unknown) (no (unknown) (unknown) Urine Glucose (UA) (units (unknown) date) Negative (Negative) unknown) g/dL (unknown) (no (unknown) (unknown) Urine Ketones (units ( unknown) date) (NEGATIVE) unknown) (unknown) (no (unknown) (unknown) Urine Ketones (units ( unknown) date) Negative (NEGATIVE) unknown) (unknown) (no (unknown) (unknown) Urine Nitrate (units ( unknown) date) (Negative) unknown) (unknown) (no (unknown) (unknown) Urine Nitrate (units ( unknown) date) Negative (Negative) unknown) (unknown) (no (unknown) (unknown) Urine Occult Blood (units (unknown) date) (Negative) unknown) (unknown) (no (unknown) (unknown) Urine Occult Blood (units (unknown) date) 1+ H (Negative) unknown) (unknown) (no (unknown) (unknown) Urine Protein (units ( unknown) date) (Negative) unknown) (unknown) (no (unknown) (unknown) Urine Protein 1+ H (units (unknown) date) (Negative) unknown) (unknown) (no (unknown) (unknown) Urine RBC (units (unkn own) date) (0-5/HPF) unknown) (unknown) (no (unknown) (unknown) Urine RBC 0-1/hpf (units (unknown) date) (0-5/HPF) unknown) (unknown) (no (unknown) (unknown) Urine Specific (units (unknown) date) [place] 1.02 unknown) (unknown) (no (unknown) (unknown) Urine Urobilinogen (units (unknown) date) (0.2) E.U./dL unknown) (unknown) (no (unknown) (unknown) Urine Urobilinogen (units (unknown) date) 0.2 (0.2) E.U./dL unknown) (unknown) (no (unknown) (unknown) Urine WBC (units (unkn own) date) (0-5/HPF) unknown) (unknown) (no (unknown) (unknown) Urine WBC (units (unkn own) date) 30-100/hpf H unknown) (0-5/HPF) (unknown) (no (unknown) (unknown) Urine pH (4.5-8.0) (units (unknown) date) unknown) (unknown) (no (unknown) (unknown) Urine pH 5.0 (units (u nknown) date) (4.5-8.0) unknown) (unknown) (no (unknown) (unknown) Ventral Wall: ? No (units (unknown) date) hernias.? unknown) (unknown) (no (unknown) (unknown) Vessels:? Aorta (units (unknown) date) and inferior vena unknown) cava are normal in size.? (unknown) (no (unknown) (unknown) Vital Signs - 8 hr (units (unknown) date) unknown) (unknown) (no (unknown) (unknown) Vital Signs (units (un known) date) unknown) (unknown) (no (unknown) (unknown) Vital signs: (units (u nknown) date) unknown) (unknown) (no (unknown) (unknown) WBC (4.5-11.0) (units (unknown) date) X103/uL unknown) (unknown) (no (unknown) (unknown) WBC 29.1 H (units (unk nown) date) (4.5-11.0) X103/uL unknown) (unknown) (no (unknown) (unknown) Within 3 hours (units (unknown) date) unknown) (unknown) (no (unknown) (unknown) Within 6 hours (if (units (unknown) date) continued unknown) hypotension after fluids or initial lactate >4) (unknown) (no (unknown) (unknown) XR chest 2V Stat (units (unknown) date) unknown) (unknown) (no (unknown) (unknown) [ ] 2 SIRS (units (unk nown) date) Criteria met unknown) (unknown) (no (unknown) (unknown) [ ] 30ml/kg fluid (units (unknown) date) unknown) (unknown) (no (unknown) (unknown) [ ] ABW used (units (u nknown) date) unknown) (unknown) (no (unknown) (unknown) [ ] BP < 90 or MAP (units (unknown) date) <65, >40mm decrease unknown) from normal baseline (unknown) (no (unknown) (unknown) [ ] Creat > 2.0 (units (unknown) date) unknown) (unknown) (no (unknown) (unknown) [ ] DOES NOT meet (units (unknown) date) criteria for septic unknown) shock (unknown) (no (unknown) (unknown) [ ] DOES NOT meet (units (unknown) date) criteria for severe unknown) sepsis (unknown) (no (unknown) (unknown) [ ] DOES meet (units ( unknown) date) criteria for septic unknown) shock (unknown) (no (unknown) (unknown) [ ] Evidence of at (units (unknown) date) least 1 organ unknown) system dysfunction (unknown) (no (unknown) (unknown) [ ] IBW (33.6) (units (unknown) date) used due to BMI > unknown) 30 (unknown) (no (unknown) (unknown) [ ] Initiate (units (u nknown) date) vasopressor therapy unknown) if persistent hypotension after adequate fluid (unknown) (no (unknown) (unknown) [ ] RR >20 (units (unk nown) date) unknown) (unknown) (no (unknown) (unknown) [ ] SBP ,90 or MAP (units (unknown) date) , 65 unknown) (unknown) (no (unknown) (unknown) [ ] altered mental (units (unknown) date) status unknown) (unknown) (no (unknown) (unknown) [ ] documentation (units (unknown) date) of septic shock unknown) (unknown) (no (unknown) (unknown) [ ] lactic > 4 at (units (unknown) date) any time unknown) (unknown) (no (unknown) (unknown) [ ] lactic redrawn (units (unknown) date) within 6 hours if unknown) >2.0 (unknown) (no (unknown) (unknown) [ ] mechanical (units (unknown) date) ventilation unknown) (unknown) (no (unknown) (unknown) [ ] patient or (units (unknown) date) advocate declining unknown) fluid administration after shared decision (unknown) (no (unknown) (unknown) [ ] platelet count (units (unknown) date) < 100k unknown) (unknown) (no (unknown) (unknown) [ ] provider (units (u nknown) date) documentation of unknown) severe sepsis (unknown) (no (unknown) (unknown) [ ] repeat volume (units (unknown) date) status and tissue unknown) perfusion assessment documented after fluid (unknown) (no (unknown) (unknown) [ x ] DOES meet (units (unknown) date) criteria for severe unknown) sepsis (unknown) (no (unknown) (unknown) [ x ] Lactate > 2 (units (unknown) date) unknown) (unknown) (no (unknown) (unknown) [ x ] broad (units (un known) date) spectrum abx unknown) started (unknown) (no (unknown) (unknown) [ x ] fever or (units (unknown) date) hypothermia unknown) (unknown) (no (unknown) (unknown) [ x ] lactic acid (units (unknown) date) level checked unknown) (unknown) (no (unknown) (unknown) [ x ] (units (unkno wn) date) leukocytosis/leukop unknown) enia/bandemia (unknown) (no (unknown) (unknown) [ x] HR >90 (units (un known) date) unknown) (unknown) (no (unknown) (unknown) [Embedded Image (units (unknown) date) Not Available] unknown) (unknown) (no (unknown) (unknown) [x ] T. Bili > 2.0 (units (unknown) date) unknown) (unknown) (no (unknown) (unknown) [x ] bacterial (units (unknown) date) source of infection unknown) suspected and documented (unknown) (no (unknown) (unknown) [x ] blood cx (units ( unknown) date) drawn prior to abx unknown) (unknown) (no (unknown) (unknown) a incontinence (units (unknown) date) pad. He has not unknown) been having any diarrhea or constipation. He (unknown) (no (unknown) (unknown) a slight (units (unkno wn) date) unknown) (unknown) (no (unknown) (unknown) account. (units (unkno wn) date) unknown) (unknown) (no (unknown) (unknown) administered. His (units (unknown) date) abdominal pain is unknown) significantly improved. He is still (unknown) (no (unknown) (unknown) alcohol intake (units (unknown) date) frequency: unknown) holidays/special occasions only (unknown) (no (unknown) (unknown) alcohol intake: (units (unknown) date) current unknown) (unknown) (no (unknown) (unknown) amlodipine 10 mg (units (unknown) date) tablet 10 mg PO unknown) DAILY 01/27/18 07/13/19 (unknown) (no (unknown) (unknown) amlodipine 10 mg (units (unknown) date) tablet unknown) (unknown) (no (unknown) (unknown) and normotensive (units (unknown) date) with oxygen unknown) saturations 99% on room air. (unknown) (no (unknown) (unknown) any significant (units (unknown) date) cough, chest pain, unknown) palpitations, lower extremity edema. He (unknown) (no (unknown) (unknown) appendicitis. (units ( unknown) date) unknown) (unknown) (no (unknown) (unknown) asymmetries or (units (unknown) date) abnormalities unknown) (unknown) (no (unknown) (unknown) been significantly (units (unknown) date) fatigued but is unknown) otherwise cognitively intact. (unknown) (no (unknown) (unknown) began with (units (unk nown) date) ceftriaxone and unknown) Flagyl thinking that this was a GI source. (unknown) (no (unknown) (unknown) bolus was (units (unkn own) date) completed at unknown) [Date/Time] (unknown) (no (unknown) (unknown) bolus (units (unkno wn) date) unknown) (unknown) (no (unknown) (unknown) by the bladder (units (unknown) date) outlet obstruction unknown) and chronic urinary retention. (unknown) (no (unknown) (unknown) capillary refill (units (unknown) date) and no evidence of unknown) hypotension. Findings and concerns are (unknown) (no (unknown) (unknown) chlorthalidone 50 (units (unknown) date) mg tablet 50 mg PO unknown) DAILY 01/27/18 07/13/19 (unknown) (no (unknown) (unknown) chlorthalidone 50 (units (unknown) date) mg tablet unknown) (unknown) (no (unknown) (unknown) collecting (units (unk nown) date) unknown) (unknown) (no (unknown) (unknown) degree Mya renal (units (unknown) date) edema.? A urinary unknown) tract stone, is not seen on the left. (unknown) (no (unknown) (unknown) exenatide (units (unkn own) date) microspheres 2 unknown) mg/0.85 2 mg SUBCUT QWEEK 07/05/19 07/13/19 (unknown) (no (unknown) (unknown) fatigue, overall (units (unknown) date) altered mental unknown) status, increasing abdominal pain. He denies (unknown) (no (unknown) (unknown) fenofibrate (units (un known) date) nanocrystallized unknown) 145 145 mg PO DAILY 07/05/19 07/13/19 (unknown) (no (unknown) (unknown) fenofibrate (units (un known) date) nanocrystallized unknown) 145 mg tablet (unknown) (no (unknown) (unknown) for such. He is (units (unknown) date) not complaining of unknown) chest pain. Will repeat. (unknown) (no (unknown) (unknown) has been passing (units (unknown) date) gas. Reports no unknown) significant headache. They report that he has (unknown) (no (unknown) (unknown) history of known (units (unknown) date) coronary disease unknown) but does have a all appropriate risk factors (unknown) (no (unknown) (unknown) household members: (units (unknown) date) spouse unknown) (unknown) (no (unknown) (unknown) hydronephrosis or (units (unknown) date) unknown) (unknown) (no (unknown) (unknown) hyperlipidemia, (units (unknown) date) prior kidney stones unknown) presents with 12 hours of increasing fevers, (unknown) (no (unknown) (unknown) infuse over 3 hr (units (unknown) date) (2762.37 ml) IV NOW unknown) ONE (unknown) (no (unknown) (unknown) insulin glargine (units (unknown) date) 100 unit/mL (3 26 unknown) units SUBCUT DAILY 01/27/18 07/13/19 (unknown) (no (unknown) (unknown) insulin glargine (units (unknown) date) 100 unit/mL (3 mL) unknown) insulin pen (unknown) (no (unknown) (unknown) is placed. Urine (units (unknown) date) does look acutely unknown) infected. (unknown) (no (unknown) (unknown) kidney demonstrates (units (unknown) date) slight prominence unknown) of the central renal collecting system and (unknown) (no (unknown) (unknown) levofloxacin [From (units (unknown) date) Levaquin] Allergy unknown) Rash Verified 01/31/22 19:12 (unknown) (no (unknown) (unknown) looks like a (units (u nknown) date) urinary tract unknown) infection. In the setting of acute urinary (unknown) (no (unknown) (unknown) losartan 100 mg (units (unknown) date) tablet 100 mg PO unknown) DAILY 01/27/18 07/13/19 (unknown) (no (unknown) (unknown) losartan 100 mg (units (unknown) date) tablet unknown) (unknown) (no (unknown) (unknown) mL subcutaneous (units (unknown) date) auto-injector unknown) (unknown) (no (unknown) (unknown) mL) subcutaneous (units (unknown) date) pen unknown) (unknown) (no (unknown) (unknown) making (units (unkno wn) date) conversation unknown) (unknown) (no (unknown) (unknown) metformin 500 mg (units (unknown) date) tablet 500 mg PO unknown) BID 01/27/18 07/13/19 (unknown) (no (unknown) (unknown) metformin 500 mg (units (unknown) date) tablet unknown) (unknown) (no (unknown) (unknown) mg tablet (units (unkn own) date) unknown) (unknown) (no (unknown) (unknown) minor prominence (units (unknown) date) of the renal unknown) collecting system on the left without obvious (unknown) (no (unknown) (unknown) mondays (units (unkno wn) date) unknown) (unknown) (no (unknown) (unknown) no flank pain (units ( unknown) date) unknown) (unknown) (no (unknown) (unknown) not (units (unkno wn) date) unknown) (unknown) (no (unknown) (unknown) oxycodone 5 mg (units (unknown) date) capsule 5 mg PO Q4H unknown) PRN pain #14 caps 07/13/19 (unknown) (no (unknown) (unknown) oxycodone 5 mg (units (unknown) date) capsule unknown) (unknown) (no (unknown) (unknown) pain for further (units (unknown) date) evaluation. unknown) Tachycardic, tachypneic, afebrile on presentation (unknown) (no (unknown) (unknown) peripheral pulse (units (unknown) date) evaluation, skin unknown) exam (unknown) (no (unknown) (unknown) pigtail right (units ( unknown) date) ureteral stent unknown) without hydronephrosis or hydroureter. Urine (unknown) (no (unknown) (unknown) pigtail (units (unkno wn) date) unknown) (unknown) (no (unknown) (unknown) prior to (units (unkno wn) date) determining acuity unknown) of hospital needs for admission. (unknown) (no (unknown) (unknown) retained (units (unkno wn) date) calculus.? On the unknown) left there is mild prominence of the central renal (unknown) (no (unknown) (unknown) retention (units (unkn own) date) unknown) (unknown) (no (unknown) (unknown) retention, pigtail (units (unknown) date) catheter still in unknown) place and mild prominence of the collecting (unknown) (no (unknown) (unknown) reviewed with the (units (unknown) date) patient and his unknown) daughter. Will wait to see repeat troponin (unknown) (no (unknown) (unknown) right ureteral (units (unknown) date) stent.? There is no unknown) right-sided hydronephrosis or hydroureter.? (unknown) (no (unknown) (unknown) rosuvastatin 40 mg (units (unknown) date) tablet 40 mg PO unknown) DAILY 07/05/19 07/13/19 (unknown) (no (unknown) (unknown) rosuvastatin 40 mg (units (unknown) date) tablet unknown) (unknown) (no (unknown) (unknown) sample is obtained (units (unknown) date) and 1725 cc of unknown) urine are initially drained. Ramírez catheter (unknown) (no (unknown) (unknown) seen. (units (unkno wn) date) unknown) (unknown) (no (unknown) (unknown) showing signs of (units (unknown) date) good peripheral unknown) perfusion with warm extremities with good (unknown) (no (unknown) (unknown) signs of (units (unkno wn) date) obstruction. unknown) (unknown) (no (unknown) (unknown) states that he is (units (unknown) date) able to void but it unknown) is only intervals and he frequently wears (unknown) (no (unknown) (unknown) system but an (units (u nknown) date) obstructive urinary unknown) tract stone more distally within the ureter is (unknown) (no (unknown) (unknown) system on the (units ( unknown) date) right without unknown) evidence of stone urology will be consult today. (unknown) (no (unknown) (unknown) taken into (units (unk nown) date) unknown) (unknown) (no (unknown) (unknown) tamsulosin 0.4 mg (units (unknown) date) capsule 0.4 mg PO unknown) DAILY #60 caps 07/13/19 (unknown) (no (unknown) (unknown) tamsulosin 0.4 mg (units (unknown) date) capsule unknown) (unknown) (no (unknown) (unknown) that included in (units (unknown) date) the HPI. unknown) (unknown) (no (unknown) (unknown) to direct (units (unkn own) date) questions unknown) (unknown) (no (unknown) (unknown) unremarkable.? (units (unknown) date) unknown) Result panel 13 (unknown) (no (unknown) (unknown) (no value) (units (unk nown) date) unknown) (unknown) (no (unknown) (unknown) (Bydureon BCise) (units (unknown) date) unknown) (unknown) (no (unknown) (unknown) 0.4 mg PO DAILY (units (unknown) date) Qty: 60 0RF unknown) (unknown) (no (unknown) (unknown) 10 mg PO DAILY (units (unknown) date) unknown) (unknown) (no (unknown) (unknown) 01/31/22 01/31/22 (units (unknown) date) 01/31/22 unknown) Range/Units (unknown) (no (unknown) (unknown) 01/31/22 19:24 (units (unknown) date) unknown) (unknown) (no (unknown) (unknown) 01/31/22 20:00 (units (unknown) date) unknown) (unknown) (no (unknown) (unknown) 01/31/22 20:02 (units (unknown) date) unknown) (unknown) (no (unknown) (unknown) 01/31/22 20:03 (units (unknown) date) unknown) (unknown) (no (unknown) (unknown) 01/31/22 20:14 (units (unknown) date) unknown) (unknown) (no (unknown) (unknown) 01/31/22 20:28 (units (unknown) date) unknown) (unknown) (no (unknown) (unknown) 01/31/22 21:54 (units (unknown) date) unknown) (unknown) (no (unknown) (unknown) 01/31/22 22:00 (units (unknown) date) unknown) (unknown) (no (unknown) (unknown) 01/31/22 (units (unkno wn) date) Range/Units unknown) (unknown) (no (unknown) (unknown) 01/31/22 (units (unkno wn) date) unknown) (unknown) (no (unknown) (unknown) 100 mg PO DAILY (units (unknown) date) unknown) (unknown) (no (unknown) (unknown) 1000pm patient is (units (unknown) date) re-evaluated. He is unknown) having fever and rigors and Tylenol as (unknown) (no (unknown) (unknown) 1015pm patient is (units (unknown) date) having an episode unknown) of emesis. Currently afebrile. Oxygen (unknown) (no (unknown) (unknown) 145 mg PO DAILY (units (unknown) date) unknown) (unknown) (no (unknown) (unknown) 19:06 01/31/22 (units (unknown) date) unknown) (unknown) (no (unknown) (unknown) 19:19 01/31/22 (units (unknown) date) unknown) (unknown) (no (unknown) (unknown) 19:20 01/31/22 (units (unknown) date) unknown) (unknown) (no (unknown) (unknown) 19:20 (units (unkno wn) date) unknown) (unknown) (no (unknown) (unknown) 19:30 01/31/22 (units (unknown) date) unknown) (unknown) (no (unknown) (unknown) 19:30 (units (unkno wn) date) unknown) (unknown) (no (unknown) (unknown) 2 mg SUBCUT QWEEK (units (unknown) date) unknown) (unknown) (no (unknown) (unknown) 20:00 01/31/22 (units (unknown) date) unknown) (unknown) (no (unknown) (unknown) 20:00 20:00 20:00 (units (unknown) date) unknown) (unknown) (no (unknown) (unknown) 20:14 (units (unkno wn) date) unknown) (unknown) (no (unknown) (unknown) 20:30 01/31/22 (units (unknown) date) unknown) (unknown) (no (unknown) (unknown) 20:30 (units (unkno wn) date) unknown) (unknown) (no (unknown) (unknown) 20:45 01/31/22 (units (unknown) date) unknown) (unknown) (no (unknown) (unknown) 21:07 (units (unkno wn) date) unknown) (unknown) (no (unknown) (unknown) 21:11 01/31/22 (units (unknown) date) unknown) (unknown) (no (unknown) (unknown) 22:05 (units (unkno wn) date) unknown) (unknown) (no (unknown) (unknown) 26 units subcut (units (unknown) date) DAILY unknown) (unknown) (no (unknown) (unknown) 30 particular was (units (unknown) date) initiated. He is unknown) allergic to penicillin so rather than Zosyn (unknown) (no (unknown) (unknown) 40 mg PO DAILY (units (unknown) date) unknown) (unknown) (no (unknown) (unknown) 5 mg PO Q4H PRN (units (unknown) date) (Reason: pain) Qty: unknown) 14 0RF (unknown) (no (unknown) (unknown) 50 mg PO DAILY (units (unknown) date) unknown) (unknown) (no (unknown) (unknown) 500 mg PO BID (units ( unknown) date) unknown) (unknown) (no (unknown) (unknown) 71-year-old (units (un known) date) gentleman presents unknown) acutely ill, febrile pale with severe abdominal (unknown) (no (unknown) (unknown) 71-year-old (units (un known) date) gentleman with unknown) history of hypertension, type 2 diabetes, (unknown) (no (unknown) (unknown) ? 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 (unknown) (no (unknown) (unknown) ABDOMEN: (units (unkno wn) date) unknown) (unknown) (no (unknown) (unknown) ALT (<50) IU/L (units (unknown) date) unknown) (unknown) (no (unknown) (unknown) ALT 16 (<50) IU/L (units (unknown) date) unknown) (unknown) (no (unknown) (unknown) APTT (26-36) (units (u nknown) date) SECONDS unknown) (unknown) (no (unknown) (unknown) APTT 31 (26-36) (units (unknown) date) SECONDS unknown) (unknown) (no (unknown) (unknown) AST (17-59) IU/L (units (unknown) date) unknown) (unknown) (no (unknown) (unknown) AST 31 (17-59) (units (unknown) date) IU/L unknown) (unknown) (no (unknown) (unknown) Abdomen: Mild (units ( unknown) date) distention, diffuse unknown) abdominal pain without rebound or guarding, (unknown) (no (unknown) (unknown) Abdominal Nodes:? (units (unknown) date) No retroperitoneal unknown) or mesenteric adenopathy by size criteria.? (unknown) (no (unknown) (unknown) Acetaminophen (units ( unknown) date) (Acetaminophen 325 unknown) Mg Tablet) 975 mg PO NOW ONE (unknown) (no (unknown) (unknown) Acute kidney (units (u nknown) date) injury with unknown) creatinine increased from 1.3-1.6. Likely compounded (unknown) (no (unknown) (unknown) Acute (units (unkno wn) date) pyelonephritis, unknown) Benign prostatic hyperplasia, Acute urinary retention (unknown) (no (unknown) (unknown) Additional (units (unk nown) date) Information: unknown) (unknown) (no (unknown) (unknown) Admin: 01/31/22 (units (unknown) date) 20:13 Dose: 200 unknown) mls/hr (unknown) (no (unknown) (unknown) Adrenal Glands:? (units (unknown) date) Unremarkable.? ? unknown) (unknown) (no (unknown) (unknown) Age/Sex: 71 / M (units (unknown) date) unknown) (unknown) (no (unknown) (unknown) Albumin (3.5-5.0) (units (unknown) date) g/dL unknown) (unknown) (no (unknown) (unknown) Albumin 4.2 (units (un known) date) (3.5-5.0) g/dL unknown) (unknown) (no (unknown) (unknown) Albumin/Globulin (units (unknown) date) Ratio (1.0-2.8) unknown) (unknown) (no (unknown) (unknown) Albumin/Globulin (units (unknown) date) Ratio 1.2 (1.0-2.8) unknown) (unknown) (no (unknown) (unknown) Alkaline (units (unkno wn) date) Phosphatase unknown) (38-126) U/L (unknown) (no (unknown) (unknown) Alkaline (units (unkno wn) date) Phosphatase 66 unknown) (38-126) U/L (unknown) (no (unknown) (unknown) Allergies (units (unkn own) date) unknown) (unknown) (no (unknown) (unknown) Allergy/AdvReac (units (unknown) date) Type Severity unknown) Reaction Status Date / Time (unknown) (no (unknown) (unknown) Anisocytosis 1+ H (units (unknown) date) unknown) (unknown) (no (unknown) (unknown) Anisocytosis (units (u nknown) date) unknown) (unknown) (no (unknown) (unknown) 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, unknown) Ramírez catheter now in place (unknown) (no (unknown) (unknown) BUN (9-20) mg/dL (units (unknown) date) unknown) (unknown) (no (unknown) (unknown) BUN 22 H (9-20) (units (unknown) date) mg/dL unknown) (unknown) (no (unknown) (unknown) BUN/Creatinine (units (unknown) date) Ratio (6-22) unknown) (unknown) (no (unknown) (unknown) BUN/Creatinine (units (unknown) date) Ratio 13.8 (6-22) unknown) (unknown) (no (unknown) (unknown) Band Neutrophils % (units (unknown) date) (3-7) % unknown) (unknown) (no (unknown) (unknown) Band Neutrophils % (units (unknown) date) 12.0 H (3-7) % unknown) (unknown) (no (unknown) (unknown) Baso # (Auto) Not (units (unknown) date) Reportable unknown) (unknown) (no (unknown) (unknown) Baso # (Auto) (units ( unknown) date) unknown) (unknown) (no (unknown) (unknown) Baso % (Auto) Not (units (unknown) date) Reportable unknown) (unknown) (no (unknown) (unknown) Baso % (Auto) (units ( unknown) date) unknown) (unknown) (no (unknown) (unknown) Bedside Urine (units ( unknown) date) Bilirubin - unknown) Negative (unknown) (no (unknown) (unknown) Bedside Urine (units ( unknown) date) Glucose Negative unknown) (unknown) (no (unknown) (unknown) Bedside Urine (units ( unknown) date) Ketone - Negative unknown) (unknown) (no (unknown) (unknown) Bedside Urine (units ( unknown) date) Leukocytes + 70 unknown) (unknown) (no (unknown) (unknown) Bedside Urine (units ( unknown) date) Nitrite - Negative unknown) (unknown) (no (unknown) (unknown) Bedside Urine (units ( unknown) date) Occult Blood +/ unknown) (unknown) (no (unknown) (unknown) Bedside Urine (units ( unknown) date) Protein + 30 unknown) (unknown) (no (unknown) (unknown) Bedside Urine (units ( unknown) date) Urobilinogen - unknown) Negative (unknown) (no (unknown) (unknown) Bedside Urine pH 6 (units (unknown) date) unknown) (unknown) (no (unknown) (unknown) Biliary ducts:? (units (unknown) date) Unremarkable.? ? unknown) (unknown) (no (unknown) (unknown) Bladder:? (units (unkn own) date) Unremarkable.? ? unknown) (unknown) (no (unknown) (unknown) Blood Culture Stat (units (unknown) date) unknown) (unknown) (no (unknown) (unknown) Blood Pressure (units (unknown) date) 127/80 unknown) (unknown) (no (unknown) (unknown) Blood Pressure (units (unknown) date) 132/79 unknown) (unknown) (no (unknown) (unknown) Blood Pressure (units (unknown) date) 134/75 01/31/22 unknown) 19:06 (unknown) (no (unknown) (unknown) Blood Pressure (units (unknown) date) 134/75 139/80 unknown) (unknown) (no (unknown) (unknown) Blood Pressure (units (unknown) date) 136/78 unknown) (unknown) (no (unknown) (unknown) Blood Pressure (units (unknown) date) 137/76 unknown) (unknown) (no (unknown) (unknown) Bones and chest (units (unknown) date) wall:? No unknown) suspicious bony abnormalities.? Soft tissues appear (unknown) (no (unknown) (unknown) Bones:? (units (unkno wn) date) Unremarkable.? ? unknown) (unknown) (no (unknown) (unknown) Bydureon BCise 2 (units (unknown) date) mg/0.85 mL unknown) auto-injector (unknown) (no (unknown) (unknown) CK-MB (CK-2) Rel (units (unknown) date) Index TNP unknown) (unknown) (no (unknown) (unknown) CK-MB (CK-2) Rel (units (unknown) date) Index unknown) (unknown) (no (unknown) (unknown) CK-MB (CK-2) TNP (units (unknown) date) unknown) (unknown) (no (unknown) (unknown) CK-MB (CK-2) (units (u nknown) date) unknown) (unknown) (no (unknown) (unknown) COVID19 -Nasal (units (unknown) date) RAPID/Pre-Proc Stat unknown) (unknown) (no (unknown) (unknown) CT abdomen pelvis (units (unknown) date) w con Stat unknown) (unknown) (no (unknown) (unknown) CT scan - (units (unkn own) date) abdomen/pelvis: unknown) (unknown) (no (unknown) (unknown) CT scan does not (units (unknown) date) suggest acute unknown) abscess, diverticulitis or appendicitis. Some (unknown) (no (unknown) (unknown) Calcium (8.4-10.2) (units (unknown) date) mg/dL unknown) (unknown) (no (unknown) (unknown) Calcium 8.1 L (units ( unknown) date) (8.4-10.2) mg/dL unknown) (unknown) (no (unknown) (unknown) Carbon Dioxide (units (unknown) date) (22-32) mmol/L unknown) (unknown) (no (unknown) (unknown) Carbon Dioxide 23 (units (unknown) date) (22-32) mmol/L unknown) (unknown) (no (unknown) (unknown) Cardiac: (units (unkno wn) date) Tachycardic without unknown) murmurs (unknown) (no (unknown) (unknown) Ceftriaxone Sodium (units (unknown) date) 2,000 mg/ (Sodium unknown) Chloride) 100 mls @ 200 mls/hr IV NOW ONE (unknown) (no (unknown) (unknown) Chest x-ray: (units (u nknown) date) unknown) (unknown) (no (unknown) (unknown) Chief complaint: (units (unknown) date) Abdominal Pain unknown) (unknown) (no (unknown) (unknown) Chloride (98-107) (units (unknown) date) mmol/L unknown) (unknown) (no (unknown) (unknown) Chloride 96 L (units ( unknown) date) (98-107) mmol/L unknown) (unknown) (no (unknown) (unknown) Jillian Rosales, (units (unknown) date) MD [Primary Care unknown) Provider] (unknown) (no (unknown) (unknown) Clinical (units (unkno wn) date) Impression: unknown) (unknown) (no (unknown) (unknown) Clinical reason (units (unknown) date) for NOT initiating unknown) fluid bolus: (unknown) (no (unknown) (unknown) Complete Blood (units (unknown) date) Count AUTO DIFF unknown) Stat (unknown) (no (unknown) (unknown) Comprehensive (units ( unknown) date) Metabolic Panel unknown) Stat (unknown) (no (unknown) (unknown) Course (units (unkno wn) date) unknown) (unknown) (no (unknown) (unknown) Creatinine (units (unk nown) date) (0.66-1.25) mg/dL unknown) (unknown) (no (unknown) (unknown) Creatinine 1.60 H (units (unknown) date) (0.66-1.25) mg/dL unknown) (unknown) (no (unknown) (unknown) D Dimer Stat (units (u nknown) date) unknown) (unknown) (no (unknown) (unknown) D-Dimer (<500) (units (unknown) date) ng/ml unknown) (unknown) (no (unknown) (unknown) D-Dimer 821 H (units ( unknown) date) (<500) ng/ml unknown) (unknown) (no (unknown) (unknown) : 1950 (units (unknown) date) Acct:[id number] unknown) (unknown) (no (unknown) (unknown) Date of Service: (units (unknown) date) 01/31/22 unknown) (unknown) (no (unknown) (unknown) Departure (units (unkn own) date) unknown) (unknown) (no (unknown) (unknown) Dictated by: Dwayne (units (unknown) date) Jody Meadows on unknown) 01/31/2022 at 20:08 ? ? (unknown) (no (unknown) (unknown) Dictated by: Dwayne (units (unknown) date) Jody Meadows on unknown) 01/31/2022 at 21:21 ? ? (unknown) (no (unknown) (unknown) Discharge Plan (units (unknown) date) unknown) (unknown) (no (unknown) (unknown) Discontinued (units (u nknown) date) Medications unknown) (unknown) (no (unknown) (unknown) Documented By: NR (units (unknown) date) unknown) (unknown) (no (unknown) (unknown) ECG Data (units (unkno wn) date) unknown) (unknown) (no (unknown) (unknown) ED Orders (units (unkn own) date) unknown) (unknown) (no (unknown) (unknown) EKG-12 Lead Stat (units (unknown) date) unknown) (unknown) (no (unknown) (unknown) ER Physician: (units ( unknown) date) Kyleigh Castellanos MD unknown) (unknown) (no (unknown) (unknown) Emergency Report (units (unknown) date) unknown) (unknown) (no (unknown) (unknown) Eos % (Auto) Not (units (unknown) date) Reportable unknown) (unknown) (no (unknown) (unknown) Eos % (Auto) (units (u nknown) date) unknown) (unknown) (no (unknown) (unknown) Esterase (units (unkno wn) date) unknown) (unknown) (no (unknown) (unknown) Estimated GFR (units ( unknown) date) (>60) mL/min unknown) (unknown) (no (unknown) (unknown) Estimated GFR 45 L (units (unknown) date) (>60) mL/min unknown) (unknown) (no (unknown) (unknown) Exam (units (unkno wn) date) unknown) (unknown) (no (unknown) (unknown) Extremities: No (units (unknown) date) trauma, well unknown) perfused (unknown) (no (unknown) (unknown) FINDINGS:? (units (unk nown) date) unknown) (unknown) (no (unknown) (unknown) Full and (units (unkno wn) date) symmetrical air unknown) movement, no respiratory distress appreciated (unknown) (no (unknown) (unknown) Gallbladder:? (units ( unknown) date) Unremarkable.? ? unknown) (unknown) (no (unknown) (unknown) General (units (unkno wn) date) unknown) (unknown) (no (unknown) (unknown) General: Acutely (units (unknown) date) ill-appearing, unknown) pale, significantly fatigued but will respond (unknown) (no (unknown) (unknown) Globulin (1.7-4.1) (units (unknown) date) g/dL unknown) (unknown) (no (unknown) (unknown) Globulin 3.4 (units (u nknown) date) (1.7-4.1) g/dL unknown) (unknown) (no (unknown) (unknown) Glucose (80-110) (units (unknown) date) mg/dL unknown) (unknown) (no (unknown) (unknown) Glucose 262 H (units ( unknown) date) (80-110) mg/dL unknown) (unknown) (no (unknown) (unknown) Goal directed (units ( unknown) date) therapy within 3 unknown) hours of septic shock or initial hypotension (unknown) (no (unknown) (unknown) Goal directed (units ( unknown) date) treatment unknown) (unknown) (no (unknown) (unknown) HEENT: Moist (units (u nknown) date) mucous membranes, unknown) normal sclera with reactive pupils, (unknown) (no (unknown) (unknown) HPI - General (units ( unknown) date) Adult unknown) (unknown) (no (unknown) (unknown) HPI narrative: (units (unknown) date) unknown) (unknown) (no (unknown) (unknown) Hct (41-53) % (units ( unknown) date) unknown) (unknown) (no (unknown) (unknown) Hct 38.2 L (41-53) (units (unknown) date) % unknown) (unknown) (no (unknown) (unknown) He has a history (units (unknown) date) of kidney stones unknown) and 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 No (units (unk nown) date) significant unknown) findings. (unknown) (no (unknown) (unknown) Hgb (13.5-17.5) (units (unknown) date) g/dL unknown) (unknown) (no (unknown) (unknown) Hgb 13.3 L (units (unk nown) date) (13.5-17.5) g/dL unknown) (unknown) (no (unknown) (unknown) History of Present (units (unknown) date) Illness unknown) (unknown) (no (unknown) (unknown) History of kidney (units (unknown) date) stones unknown) (unknown) (no (unknown) (unknown) Home Medications (units (unknown) date) unknown) (unknown) (no (unknown) (unknown) Hyperlipidemia (units (unknown) date) unknown) (unknown) (no (unknown) (unknown) Hypertension (units (u nknown) date) unknown) (unknown) (no (unknown) (unknown) IMPRESSION:? No (units (unknown) date) abscess found, no unknown) evidence of colitis or diverticulitis, or (unknown) (no (unknown) (unknown) IMPRESSION:? (units (u nknown) date) Reduced inspiratory unknown) volume, no acute disease when this factor is (unknown) (no (unknown) (unknown) INR (0.9-1.3) (units ( unknown) date) unknown) (unknown) (no (unknown) (unknown) INR 1.6 H (units (unkn own) date) (0.9-1.3) unknown) (unknown) (no (unknown) (unknown) Image quality:? (units (unknown) date) Excellent.? unknown) (unknown) (no (unknown) (unknown) Imaging Data (units (u nknown) date) unknown) (unknown) (no (unknown) (unknown) Initial Vital (units ( unknown) date) Signs unknown) (unknown) (no (unknown) (unknown) Initial Vital (units ( unknown) date) Signs: unknown) (unknown) (no (unknown) (unknown) Initial chest x-ray (units (unknown) date) does not suggest unknown) significant infiltrates or congestive heart (unknown) (no (unknown) (unknown) Initial (units (unkno wn) date) presumption was unknown) sepsis or developing sepsis. Fluid resuscitation with (unknown) (no (unknown) (unknown) Interpretation: (units (unknown) date) unknown) (unknown) (no (unknown) (unknown) [facility] (units (unknown) date) [address] unknown) [place] [address] (unknown) (no (unknown) (unknown) Kidney stones (units ( unknown) date) unknown) (unknown) (no (unknown) (unknown) Kidneys and (units (un known) date) Ureters:? 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 (unknown) (no (unknown) (unknown) Lab Data (units (unkno wn) date) unknown) (unknown) (no (unknown) (unknown) Lab Results (units (un known) date) unknown) (unknown) (no (unknown) (unknown) Label Comments: (units (unknown) date) unknown) (unknown) (no (unknown) (unknown) Labs: (units (unkno wn) date) unknown) (unknown) (no (unknown) (unknown) Lactate (0.7-2.1) (units (unknown) date) mmol/L unknown) (unknown) (no (unknown) (unknown) Lactate (Lactic (units (unknown) date) Acid) Stat unknown) (unknown) (no (unknown) (unknown) Lactate 3.0 H (units ( unknown) date) (0.7-2.1) mmol/L unknown) (unknown) (no (unknown) (unknown) Lactic elevated at (units (unknown) date) 3.0, significantly unknown) elevated procalcitonin, urine certainly (unknown) (no (unknown) (unknown) Last Admin: (units (un known) date) 01/31/22 20:17 unknown) Dose: 100 mls/hr (unknown) (no (unknown) (unknown) Last Admin: (units (un known) date) 01/31/22 20:17 unknown) Dose: 920.79 mls/hr (unknown) (no (unknown) (unknown) Last Admin: (units (un known) date) 01/31/22 22:05 unknown) Dose: 975 mg (unknown) (no (unknown) (unknown) Last Infusion: (units (unknown) date) 01/31/22 21:10 unknown) Dose: 0 mls/hr (unknown) (no (unknown) (unknown) Left axis (units (unkn own) date) deviation unknown) (unknown) (no (unknown) (unknown) Liver:? (units (unkno wn) date) Unremarkable.? ? unknown) (unknown) (no (unknown) (unknown) Lung bases:? (units (u nknown) date) Unremarkable. unknown) (unknown) (no (unknown) (unknown) Lungs and pleura:? (units (unknown) date) Lungs are clear.? unknown) No pleural effusions or pneumothorax.? (unknown) (no (unknown) (unknown) Lymph # (Auto) Not (units (unknown) date) Reportable unknown) (unknown) (no (unknown) (unknown) Lymph # (Auto) (units (unknown) date) unknown) (unknown) (no (unknown) (unknown) Lymph % (Auto) Not (units (unknown) date) Reportable unknown) (unknown) (no (unknown) (unknown) Lymph % (Auto) (units (unknown) date) unknown) (unknown) (no (unknown) (unknown) Lymphocytes % (units ( unknown) date) (Manual) (25-45) % unknown) (unknown) (no (unknown) (unknown) Lymphocytes % (units ( unknown) date) (Manual) 5.0 L unknown) (25-45) % (unknown) (no (unknown) (unknown) [id number] (units (unk nown) date) unknown) (unknown) (no (unknown) (unknown) MCH (26-34) PG (units (unknown) date) unknown) (unknown) (no (unknown) (unknown) MCH 28.5 (26-34) (units (unknown) date) PG unknown) (unknown) (no (unknown) (unknown) MCHC (30-36) % (units (unknown) date) unknown) (unknown) (no (unknown) (unknown) MCHC 34.8 (30-36) (units (unknown) date) % unknown) (unknown) (no (unknown) (unknown) MCV (80-100) fL (units (unknown) date) unknown) (unknown) (no (unknown) (unknown) MCV 81.8 (80-100) (units (unknown) date) fL unknown) (unknown) (no (unknown) (unknown) MDM Narrative (units ( unknown) date) unknown) (unknown) (no (unknown) (unknown) Measure peak (units (u nknown) date) expiratory flow unknown) ONCE (unknown) (no (unknown) (unknown) Mediastinum:? (units ( unknown) date) Mediastinal unknown) contours are normal.? Heart size is normal.? (unknown) (no (unknown) (unknown) Medical Decision (units (unknown) date) Making unknown) (unknown) (no (unknown) (unknown) Medical History (units (unknown) date) (Updated 01/31/22 @ unknown) 22:11 by Kyleigh Castellanos MD) (unknown) (no (unknown) (unknown) Medical decision (units (unknown) date) making narrative: unknown) (unknown) (no (unknown) (unknown) Medication (units (unk nown) date) Instructions unknown) Recorded Confirmed (unknown) (no (unknown) (unknown) Medication (units (unk nown) date) Instructions unknown) Recorded (unknown) (no (unknown) (unknown) Metronidazole (units ( unknown) date) (Flagyl) 500 mg in unknown) 100 mls @ 100 mls/hr IV NOW ONE (unknown) (no (unknown) (unknown) Miscellaneous: No (units (unknown) date) hernias are seen. ? unknown) ? (unknown) (no (unknown) (unknown) [place] # (Auto) Not (units (unknown) date) Reportable unknown) (unknown) (no (unknown) (unknown) [place] # (Auto) (units ( unknown) date) unknown) (unknown) (no (unknown) (unknown) [place] % (Auto) Not (units (unknown) date) Reportable unknown) (unknown) (no (unknown) (unknown) [place] % (Auto) (units ( unknown) date) unknown) (unknown) (no (unknown) (unknown) Monocytes % (units (un known) date) (Manual) (2-11) % unknown) (unknown) (no (unknown) (unknown) Monocytes % (units (un known) date) (Manual) 1.0 L unknown) (2-11) % (unknown) (no (unknown) (unknown) Must include vital (units (unknown) date) signs, unknown) cardiopulmonary exam, capillary refill, (unknown) (no (unknown) (unknown) Narrative: (units (unk nown) date) unknown) (unknown) (no (unknown) (unknown) Neck: No JVD, (units ( unknown) date) supple unknown) (unknown) (no (unknown) (unknown) Neurologic: (units (un known) date) Globally weak but unknown) Grossly neurologically intact with no obvious (unknown) (no (unknown) (unknown) Neut % (Auto) Not (units (unknown) date) Reportable unknown) (unknown) (no (unknown) (unknown) Neut % (Auto) (units ( unknown) date) unknown) (unknown) (no (unknown) (unknown) Neutrophils # (units ( unknown) date) (Manual) unknown) ([id number]) /uL (unknown) (no (unknown) (unknown) Neutrophils # (units ( unknown) date) (Manual) 27473 H unknown) ([id number]) /uL (unknown) (no (unknown) (unknown) No Action (units (unkn own) date) unknown) (unknown) (no (unknown) (unknown) Ordered: (units (unkno wn) date) unknown) (unknown) (no (unknown) (unknown) Orders (units (unkno wn) date) unknown) (unknown) (no (unknown) (unknown) Oxygen Delivery (units (unknown) date) Method 01/31/22 unknown) 19:06 (unknown) (no (unknown) (unknown) Oxygen Delivery (units (unknown) date) Method Room Air unknown) Room Air (unknown) (no (unknown) (unknown) Oxygen Delivery (units (unknown) date) Method unknown) (unknown) (no (unknown) (unknown) PELVIS: (units (unkno wn) date) unknown) (unknown) (no (unknown) (unknown) PT (10.1-12.7) (units (unknown) date) SECONDS unknown) (unknown) (no (unknown) (unknown) PT 18.9 H (units (unkn own) date) (10.1-12.7) SECONDS unknown) (unknown) (no (unknown) (unknown) Pancreas:? (units (unk nown) date) Unremarkable.? ? unknown) (unknown) (no (unknown) (unknown) Partial (units (unkno wn) date) Thromboplastin Time unknown) Stat (unknown) (no (unknown) (unknown) Patient History (units (unknown) date) unknown) (unknown) (no (unknown) (unknown) Patient: (units (unkno wn) date) Pascual Padilla unknown) MR#: (unknown) (no (unknown) (unknown) Pelvic Nodes: No (units (unknown) date) enlarged lymph unknown) nodes.? (unknown) (no (unknown) (unknown) Pelvic Organs:? (units (unknown) date) Unremarkable.? ? unknown) (unknown) (no (unknown) (unknown) Penicillins (units (un known) date) Allergy Rash unknown) Verified 01/31/22 19:12 (unknown) (no (unknown) (unknown) Peritoneum:? No (units (unknown) date) abnormal unknown) intraperitoneal fluid.? No free air.? (unknown) (no (unknown) (unknown) Plt Count (units (unkn own) date) (150-400) X103/uL unknown) (unknown) (no (unknown) (unknown) Plt Count 156 (units ( unknown) date) (150-400) X103/uL unknown) (unknown) (no (unknown) (unknown) Point of care (units ( unknown) date) testing: unknown) (unknown) (no (unknown) (unknown) Potassium (units (unkn own) date) (3.4-5.1) mmol/L unknown) (unknown) (no (unknown) (unknown) Potassium 3.6 (units ( unknown) date) (3.4-5.1) mmol/L unknown) (unknown) (no (unknown) (unknown) Prescriptions: (units (unknown) date) unknown) (unknown) (no (unknown) (unknown) Previous Rx's (units ( unknown) date) unknown) (unknown) (no (unknown) (unknown) Procalcitonin (units ( unknown) date) (<0.5) ng/mL unknown) (unknown) (no (unknown) (unknown) Procalcitonin 4.70 (units (unknown) date) H (<0.5) ng/mL unknown) (unknown) (no (unknown) (unknown) Procalcitonin Stat (units (unknown) date) unknown) (unknown) (no (unknown) (unknown) Prothrombin Time (units (unknown) date) INR Stat unknown) (unknown) (no (unknown) (unknown) Psych: (units (unkno wn) date) Cooperative, unknown) significant fatigue (unknown) (no (unknown) (unknown) Pulse Oximetry 97 (units (unknown) date) 96 unknown) (unknown) (no (unknown) (unknown) Pulse Oximetry 98 (units (unknown) date) 01/31/22 19:06 unknown) (unknown) (no (unknown) (unknown) Pulse Oximetry 98 (units (unknown) date) 95 unknown) (unknown) (no (unknown) (unknown) Pulse Oximetry 98 (units (unknown) date) 97 unknown) (unknown) (no (unknown) (unknown) Pulse Oximetry 99 (units (unknown) date) unknown) (unknown) (no (unknown) (unknown) Pulse Rate 117 H (units (unknown) date) 01/31/22 19:06 unknown) (unknown) (no (unknown) (unknown) Pulse Rate 117 H (units (unknown) date) 124 H unknown) (unknown) (no (unknown) (unknown) Pulse Rate 118 H (units (unknown) date) 67 unknown) (unknown) (no (unknown) (unknown) Pulse Rate 119 H (units (unknown) date) 120 H unknown) (unknown) (no (unknown) (unknown) Pulse Rate 122 H (units (unknown) date) 116 H unknown) (unknown) (no (unknown) (unknown) Pulse Rate 122 H (units (unknown) date) unknown) (unknown) (no (unknown) (unknown) QTC prolonged at (units (unknown) date) 583 milliseconds unknown) (unknown) (no (unknown) (unknown) Qualifiers: (units (un known) date) unknown) (unknown) (no (unknown) (unknown) RBC (4.5-5.9) (units ( unknown) date) X106/uL unknown) (unknown) (no (unknown) (unknown) RBC 4.66 (4.5-5.9) (units (unknown) date) X106/uL unknown) (unknown) (no (unknown) (unknown) RBC Morphology See (units (unknown) date) below unknown) (unknown) (no (unknown) (unknown) RBC Morphology (units (unknown) date) unknown) (unknown) (no (unknown) (unknown) RDW (11.6-14.8) % (units (unknown) date) unknown) (unknown) (no (unknown) (unknown) RDW 14.0 (units (unkno wn) date) (11.6-14.8) % unknown) (unknown) (no (unknown) (unknown) RT Consult Eval (units (unknown) date) and Treat Now unknown) (unknown) (no (unknown) (unknown) Radiologist's (units ( unknown) date) Impression: unknown) (unknown) (no (unknown) (unknown) Referrals: (units (unk nown) date) unknown) (unknown) (no (unknown) (unknown) Related Data (units (u nknown) date) unknown) (unknown) (no (unknown) (unknown) Remainder of (units (u nknown) date) complete review of unknown) systems is otherwise unremarkable except for (unknown) (no (unknown) (unknown) Respiratory Rate (units (unknown) date) 30 H unknown) (unknown) (no (unknown) (unknown) Respiratory Rate (units (unknown) date) 31 H unknown) (unknown) (no (unknown) (unknown) Respiratory Rate (units (unknown) date) 35 H 01/31/22 19:06 unknown) (unknown) (no (unknown) (unknown) Respiratory Rate (units (unknown) date) 35 H unknown) (unknown) (no (unknown) (unknown) Respiratory Rate (units (unknown) date) 39 H 41 H unknown) (unknown) (no (unknown) (unknown) Respiratory Rate (units (unknown) date) 43 H unknown) (unknown) (no (unknown) (unknown) Respiratory: Lungs (units (unknown) date) are clear to unknown) auscultation, no wheezing no rales no rhonchi. (unknown) (no (unknown) (unknown) Result diagrams: (units (unknown) date) unknown) (unknown) (no (unknown) (unknown) Review of Systems (units (unknown) date) unknown) (unknown) (no (unknown) (unknown) Seg Neutrophils % (units (unknown) date) (38-70) % unknown) (unknown) (no (unknown) (unknown) Seg Neutrophils % (units (unknown) date) 82.0 H (38-70) % unknown) (unknown) (no (unknown) (unknown) Sepsis type: (units (u nknown) date) sepsis due to unknown) unspecified organism Sepsis acute organ dysfunction (unknown) (no (unknown) (unknown) Sepsis (units (unkno wn) date) unknown) (unknown) (no (unknown) (unknown) Septic Shock (units (u nknown) date) Criteria unknown) (unknown) (no (unknown) (unknown) Septic Shock (units (u nknown) date) Determination. the unknown) patient has been screened and (unknown) (no (unknown) (unknown) Severe Sepsis (units ( unknown) date) Criteria unknown) (unknown) (no (unknown) (unknown) Severe Sepsis (units ( unknown) date) Determination. the unknown) patient has been screened and (unknown) (no (unknown) (unknown) Signed By: (units (unk nown) date) unknown) (unknown) (no (unknown) (unknown) Sinus tachycardia (units (unknown) date) at a rate of 116 unknown) (unknown) (no (unknown) (unknown) Skin: Pale but (units (unknown) date) otherwise Warm and unknown) dry, no rashes (unknown) (no (unknown) (unknown) Smoking Status: (units (unknown) date) Never smoker unknown) (unknown) (no (unknown) (unknown) Social History (units (unknown) date) (Reviewed 01/31/22 unknown) @ 21:45 by Kyleigh Castellanos MD) (unknown) (no (unknown) (unknown) Sodium (137-145) (units (unknown) date) mmol/L unknown) (unknown) (no (unknown) (unknown) Sodium 135 L (units (u nknown) date) (137-145) mmol/L unknown) (unknown) (no (unknown) (unknown) Sodium Chloride (units (unknown) date) (Normal Saline unknown) 0.9%) 2,762.37 mls @ 920.79 mls/hr 30 ml/kg (unknown) (no (unknown) (unknown) Spleen:? (units (unkno wn) date) Unremarkable.? ? unknown) (unknown) (no (unknown) (unknown) Stated complaint: (units (unknown) date) Vomiting, Stomach unknown) cramps, SOB (unknown) (no (unknown) (unknown) Stomach and (units (un known) date) Bowel:? Stomach, unknown) small bowel loops, and colon are unremarkable.? (unknown) (no (unknown) (unknown) Stop: 01/31/22 (units (unknown) date) 20:06 unknown) (unknown) (no (unknown) (unknown) Stop: 01/31/22 (units (unknown) date) 21:04 unknown) (unknown) (no (unknown) (unknown) Stop: 01/31/22 (units (unknown) date) 21:42 unknown) (unknown) (no (unknown) (unknown) Stop: 01/31/22 (units (unknown) date) 23:01 unknown) (unknown) (no (unknown) (unknown) Substance Use (units ( unknown) date) Type: does not use unknown) (unknown) (no (unknown) (unknown) Subtle lateral ST (units (unknown) date) depression unknown) (unknown) (no (unknown) (unknown) Surgical changes (units (unknown) date) and devices:? unknown) None.? (unknown) (no (unknown) (unknown) Temperature 98.3 F (units (unknown) date) 01/31/22 19:06 unknown) (unknown) (no (unknown) (unknown) Temperature 98.3 F (units (unknown) date) unknown) (unknown) (no (unknown) (unknown) Temperature (units (un known) date) unknown) (unknown) (no (unknown) (unknown) The left (units (unkno wn) date) unknown) (unknown) (no (unknown) (unknown) Time Seen by (units (u nknown) date) Provider: 01/31/22 unknown) 19:43 (unknown) (no (unknown) (unknown) Time Septic Shock (units (unknown) date) diagnosed: [ ] unknown) (unknown) (no (unknown) (unknown) Total Bilirubin (units (unknown) date) (0.2-1.3) mg/dL unknown) (unknown) (no (unknown) (unknown) Total Bilirubin (units (unknown) date) 2.2 H (0.2-1.3) unknown) mg/dL (unknown) (no (unknown) (unknown) Total Counted 100 (units (unknown) date) unknown) (unknown) (no (unknown) (unknown) Total Counted (units ( unknown) date) unknown) (unknown) (no (unknown) (unknown) Total Creatine (units (unknown) date) Kinase (55-170) U/L unknown) (unknown) (no (unknown) (unknown) Total Creatine (units (unknown) date) Kinase 59 (55-170) unknown) U/L (unknown) (no (unknown) (unknown) Total Protein (units ( unknown) date) (6.3-8.2) g/dL unknown) (unknown) (no (unknown) (unknown) Total Protein 7.6 (units (unknown) date) (6.3-8.2) g/dL unknown) (unknown) (no (unknown) (unknown) Trop I [Troponin (units (unknown) date) I] Stat unknown) (unknown) (no (unknown) (unknown) Troponin + CK (units ( unknown) date) Cardiac Panel Stat unknown) (unknown) (no (unknown) (unknown) Troponin I (units (unk nown) date) (0.01-0.034) ng/mL unknown) (unknown) (no (unknown) (unknown) Troponin I 0.924 (units (unknown) date) H* (0.01-0.034) unknown) ng/mL (unknown) (no (unknown) (unknown) Troponin is (units (un known) date) elevated at 0.9-4. unknown) Priors are not available. He does not have a (unknown) (no (unknown) (unknown) Type 2 diabetes (units (unknown) date) mellitus unknown) (unknown) (no (unknown) (unknown) Ur Culture (units (unk nown) date) Indicated? Specimen unknown) cultured (unknown) (no (unknown) (unknown) Ur Culture (units (unk nown) date) Indicated? unknown) (unknown) (no (unknown) (unknown) Ur Leukocyte (units (u nknown) date) Esterase (NEGATIVE) unknown) (unknown) (no (unknown) (unknown) Ur Leukocyte (units (u nknown) date) Esterase 2+ H unknown) (NEGATIVE) (unknown) (no (unknown) (unknown) Ur Specific (units (un known) date) [place] unknown) (1.000-1.035) (unknown) (no (unknown) (unknown) Ur Specific (units (un known) date) [place] 1.010 unknown) (1.000-1.035) (unknown) (no (unknown) (unknown) Ur Squamous Epith (units (unknown) date) Cells (0-5/HPF) unknown) (unknown) (no (unknown) (unknown) Ur Squamous Epith (units (unknown) date) Cells None seen unknown) (0-5/HPF) (unknown) (no (unknown) (unknown) Urinalysis and (units (unknown) date) Microscopic Stat unknown) (unknown) (no (unknown) (unknown) Urine Appearance (units (unknown) date) Sl cloudy unknown) (unknown) (no (unknown) (unknown) Urine Appearance (units (unknown) date) unknown) (unknown) (no (unknown) (unknown) Urine Bacteria (units (unknown) date) (None) unknown) (unknown) (no (unknown) (unknown) Urine Bacteria (units (unknown) date) Many (>30) H (None) unknown) (unknown) (no (unknown) (unknown) Urine Bilirubin (units (unknown) date) (NEGATIVE) unknown) (unknown) (no (unknown) (unknown) Urine Bilirubin (units (unknown) date) Negative (NEGATIVE) unknown) (unknown) (no (unknown) (unknown) Urine Color Yellow (units (unknown) date) unknown) (unknown) (no (unknown) (unknown) Urine Color (units (un known) date) unknown) (unknown) (no (unknown) (unknown) Urine Culture Stat (units (unknown) date) unknown) (unknown) (no (unknown) (unknown) Urine Dip (units (unkn own) date) unknown) (unknown) (no (unknown) (unknown) Urine Glucose (UA) (units (unknown) date) (Negative) g/dL unknown) (unknown) (no (unknown) (unknown) Urine Glucose (UA) (units (unknown) date) Negative (Negative) unknown) g/dL (unknown) (no (unknown) (unknown) Urine Ketones (units ( unknown) date) (NEGATIVE) unknown) (unknown) (no (unknown) (unknown) Urine Ketones (units ( unknown) date) Negative (NEGATIVE) unknown) (unknown) (no (unknown) (unknown) Urine Nitrate (units ( unknown) date) (Negative) unknown) (unknown) (no (unknown) (unknown) Urine Nitrate (units ( unknown) date) Negative (Negative) unknown) (unknown) (no (unknown) (unknown) Urine Occult Blood (units (unknown) date) (Negative) unknown) (unknown) (no (unknown) (unknown) Urine Occult Blood (units (unknown) date) 1+ H (Negative) unknown) (unknown) (no (unknown) (unknown) Urine Protein (units ( unknown) date) (Negative) unknown) (unknown) (no (unknown) (unknown) Urine Protein 1+ H (units (unknown) date) (Negative) unknown) (unknown) (no (unknown) (unknown) Urine RBC (units (unkn own) date) (0-5/HPF) unknown) (unknown) (no (unknown) (unknown) Urine RBC 0-1/hpf (units (unknown) date) (0-5/HPF) unknown) (unknown) (no (unknown) (unknown) Urine Specific (units (unknown) date) [place] 1.02 unknown) (unknown) (no (unknown) (unknown) Urine Urobilinogen (units (unknown) date) (0.2) E.U./dL unknown) (unknown) (no (unknown) (unknown) Urine Urobilinogen (units (unknown) date) 0.2 (0.2) E.U./dL unknown) (unknown) (no (unknown) (unknown) Urine WBC (units (unkn own) date) (0-5/HPF) unknown) (unknown) (no (unknown) (unknown) Urine WBC (units (unkn own) date) 30-100/hpf H unknown) (0-5/HPF) (unknown) (no (unknown) (unknown) Urine pH (4.5-8.0) (units (unknown) date) unknown) (unknown) (no (unknown) (unknown) Urine pH 5.0 (units (u nknown) date) (4.5-8.0) unknown) (unknown) (no (unknown) (unknown) Ventral Wall: ? No (units (unknown) date) hernias.? unknown) (unknown) (no (unknown) (unknown) Vessels:? Aorta (units (unknown) date) and inferior vena unknown) cava are normal in size.? (unknown) (no (unknown) (unknown) Vital Signs - 8 hr (units (unknown) date) unknown) (unknown) (no (unknown) (unknown) Vital Signs (units (un known) date) unknown) (unknown) (no (unknown) (unknown) Vital signs: (units (u nknown) date) unknown) (unknown) (no (unknown) (unknown) WBC (4.5-11.0) (units (unknown) date) X103/uL unknown) (unknown) (no (unknown) (unknown) WBC 29.1 H (units (unk nown) date) (4.5-11.0) X103/uL unknown) (unknown) (no (unknown) (unknown) Within 3 hours (units (unknown) date) unknown) (unknown) (no (unknown) (unknown) Within 6 hours (if (units (unknown) date) continued unknown) hypotension after fluids or initial lactate >4) (unknown) (no (unknown) (unknown) XR chest 2V Stat (units (unknown) date) unknown) (unknown) (no (unknown) (unknown) [ ] 2 SIRS (units (unk nown) date) Criteria met unknown) (unknown) (no (unknown) (unknown) [ ] 30ml/kg fluid (units (unknown) date) unknown) (unknown) (no (unknown) (unknown) [ ] ABW used (units (u nknown) date) unknown) (unknown) (no (unknown) (unknown) [ ] BP < 90 or MAP (units (unknown) date) <65, >40mm decrease unknown) from normal baseline (unknown) (no (unknown) (unknown) [ ] Creat > 2.0 (units (unknown) date) unknown) (unknown) (no (unknown) (unknown) [ ] DOES NOT meet (units (unknown) date) criteria for septic unknown) shock (unknown) (no (unknown) (unknown) [ ] DOES NOT meet (units (unknown) date) criteria for severe unknown) sepsis (unknown) (no (unknown) (unknown) [ ] DOES meet (units ( unknown) date) criteria for septic unknown) shock (unknown) (no (unknown) (unknown) [ ] Evidence of at (units (unknown) date) least 1 organ unknown) system dysfunction (unknown) (no (unknown) (unknown) [ ] IBW (33.6) (units (unknown) date) used due to BMI > unknown) 30 (unknown) (no (unknown) (unknown) [ ] Initiate (units (u nknown) date) vasopressor therapy unknown) if persistent hypotension after adequate fluid (unknown) (no (unknown) (unknown) [ ] RR >20 (units (unk nown) date) unknown) (unknown) (no (unknown) (unknown) [ ] SBP ,90 or MAP (units (unknown) date) , 65 unknown) (unknown) (no (unknown) (unknown) [ ] altered mental (units (unknown) date) status unknown) (unknown) (no (unknown) (unknown) [ ] documentation (units (unknown) date) of septic shock unknown) (unknown) (no (unknown) (unknown) [ ] lactic > 4 at (units (unknown) date) any time unknown) (unknown) (no (unknown) (unknown) [ ] lactic redrawn (units (unknown) date) within 6 hours if unknown) >2.0 (unknown) (no (unknown) (unknown) [ ] mechanical (units (unknown) date) ventilation unknown) (unknown) (no (unknown) (unknown) [ ] patient or (units (unknown) date) advocate declining unknown) fluid administration after shared decision (unknown) (no (unknown) (unknown) [ ] platelet count (units (unknown) date) < 100k unknown) (unknown) (no (unknown) (unknown) [ ] provider (units (u nknown) date) documentation of unknown) severe sepsis (unknown) (no (unknown) (unknown) [ ] repeat volume (units (unknown) date) status and tissue unknown) perfusion assessment documented after fluid (unknown) (no (unknown) (unknown) [ x ] DOES meet (units (unknown) date) criteria for severe unknown) sepsis (unknown) (no (unknown) (unknown) [ x ] Lactate > 2 (units (unknown) date) unknown) (unknown) (no (unknown) (unknown) [ x ] broad (units (un known) date) spectrum abx unknown) started (unknown) (no (unknown) (unknown) [ x ] fever or (units (unknown) date) hypothermia unknown) (unknown) (no (unknown) (unknown) [ x ] lactic acid (units (unknown) date) level checked unknown) (unknown) (no (unknown) (unknown) [ x ] (units (unkno wn) date) leukocytosis/leukop unknown) enia/bandemia (unknown) (no (unknown) (unknown) [ x] HR >90 (units (un known) date) unknown) (unknown) (no (unknown) (unknown) [Embedded Image (units (unknown) date) Not Available] unknown) (unknown) (no (unknown) (unknown) [x ] T. Bili > 2.0 (units (unknown) date) unknown) (unknown) (no (unknown) (unknown) [x ] bacterial (units (unknown) date) source of infection unknown) suspected and documented (unknown) (no (unknown) (unknown) [x ] blood cx (units ( unknown) date) drawn prior to abx unknown) (unknown) (no (unknown) (unknown) a incontinence (units (unknown) date) pad. He has not unknown) been having any diarrhea or constipation. He (unknown) (no (unknown) (unknown) a slight (units (unkno wn) date) unknown) (unknown) (no (unknown) (unknown) account. (units (unkno wn) date) unknown) (unknown) (no (unknown) (unknown) acute renal (units (un known) date) failure Acute renal unknown) failure type: unspecified Severe sepsis shock (unknown) (no (unknown) (unknown) administered. His (units (unknown) date) abdominal pain is unknown) significantly improved. He is still (unknown) (no (unknown) (unknown) alcohol intake (units (unknown) date) frequency: unknown) holidays/special occasions only (unknown) (no (unknown) (unknown) alcohol intake: (units (unknown) date) current unknown) (unknown) (no (unknown) (unknown) amlodipine 10 mg (units (unknown) date) tablet 10 mg PO unknown) DAILY 01/27/18 07/13/19 (unknown) (no (unknown) (unknown) amlodipine 10 mg (units (unknown) date) tablet unknown) (unknown) (no (unknown) (unknown) and normotensive (units (unknown) date) with oxygen unknown) saturations 99% on room air. (unknown) (no (unknown) (unknown) any significant (units (unknown) date) cough, chest pain, unknown) palpitations, lower extremity edema. He (unknown) (no (unknown) (unknown) appendicitis. (units ( unknown) date) unknown) (unknown) (no (unknown) (unknown) asymmetries or (units (unknown) date) abnormalities unknown) (unknown) (no (unknown) (unknown) been significantly (units (unknown) date) fatigued but is unknown) otherwise cognitively intact. (unknown) (no (unknown) (unknown) began with (units (unk nown) date) ceftriaxone and unknown) Flagyl thinking that this was a GI source. (unknown) (no (unknown) (unknown) bolus was (units (unkn own) date) completed at unknown) [Date/Time] (unknown) (no (unknown) (unknown) bolus (units (unkno wn) date) unknown) (unknown) (no (unknown) (unknown) by the bladder (units (unknown) date) outlet obstruction unknown) and chronic urinary retention. (unknown) (no (unknown) (unknown) capillary refill (units (unknown) date) and no evidence of unknown) hypotension. Findings and concerns are (unknown) (no (unknown) (unknown) chlorthalidone 50 (units (unknown) date) mg tablet 50 mg PO unknown) DAILY 01/27/18 07/13/19 (unknown) (no (unknown) (unknown) chlorthalidone 50 (units (unknown) date) mg tablet unknown) (unknown) (no (unknown) (unknown) collecting (units (unk nown) date) unknown) (unknown) (no (unknown) (unknown) degree Mya renal (units (unknown) date) edema.? A urinary unknown) tract stone, is not seen on the left. (unknown) (no (unknown) (unknown) exenatide (units (unkn own) date) microspheres 2 unknown) mg/0.85 2 mg SUBCUT QWEEK 07/05/19 07/13/19 (unknown) (no (unknown) (unknown) failure. Current (units (unknown) date) access is 2 20 unknown) gauge peripheral IVs (unknown) (no (unknown) (unknown) fatigue, overall (units (unknown) date) altered mental unknown) status, increasing abdominal pain. He denies (unknown) (no (unknown) (unknown) fenofibrate (units (un known) date) nanocrystallized unknown) 145 145 mg PO DAILY 07/05/19 07/13/19 (unknown) (no (unknown) (unknown) fenofibrate (units (un known) date) nanocrystallized unknown) 145 mg tablet (unknown) (no (unknown) (unknown) for such. He is (units (unknown) date) not complaining of unknown) chest pain. Will repeat. (unknown) (no (unknown) (unknown) has been passing (units (unknown) date) gas. Reports no unknown) significant headache. They report that he has (unknown) (no (unknown) (unknown) history of known (units (unknown) date) coronary disease unknown) but does have a all appropriate risk factors (unknown) (no (unknown) (unknown) household members: (units (unknown) date) spouse unknown) (unknown) (no (unknown) (unknown) hydronephrosis or (units (unknown) date) unknown) (unknown) (no (unknown) (unknown) hyperlipidemia, (units (unknown) date) prior kidney stones unknown) presents with 12 hours of increasing fevers, (unknown) (no (unknown) (unknown) infuse over 3 hr (units (unknown) date) (2762.37 ml) IV NOW unknown) ONE (unknown) (no (unknown) (unknown) insulin glargine (units (unknown) date) 100 unit/mL (3 26 unknown) units SUBCUT DAILY 01/27/18 07/13/19 (unknown) (no (unknown) (unknown) insulin glargine (units (unknown) date) 100 unit/mL (3 mL) unknown) insulin pen (unknown) (no (unknown) (unknown) is placed. Urine (units (unknown) date) does look acutely unknown) infected. (unknown) (no (unknown) (unknown) kidney demonstrates (units (unknown) date) slight prominence unknown) of the central renal collecting system and (unknown) (no (unknown) (unknown) levofloxacin [From (units (unknown) date) Levaquin] Allergy unknown) Rash Verified 01/31/22 19:12 (unknown) (no (unknown) (unknown) looks like a (units (u nknown) date) urinary tract unknown) infection. In the setting of acute urinary (unknown) (no (unknown) (unknown) losartan 100 mg (units (unknown) date) tablet 100 mg PO unknown) DAILY 01/27/18 07/13/19 (unknown) (no (unknown) (unknown) losartan 100 mg (units (unknown) date) tablet unknown) (unknown) (no (unknown) (unknown) mL subcutaneous (units (unknown) date) auto-injector unknown) (unknown) (no (unknown) (unknown) mL) subcutaneous (units (unknown) date) pen unknown) (unknown) (no (unknown) (unknown) making (units (unkno wn) date) conversation unknown) (unknown) (no (unknown) (unknown) metformin 500 mg (units (unknown) date) tablet 500 mg PO unknown) BID 01/27/18 07/13/19 (unknown) (no (unknown) (unknown) metformin 500 mg (units (unknown) date) tablet unknown) (unknown) (no (unknown) (unknown) mg tablet (units (unkn own) date) unknown) (unknown) (no (unknown) (unknown) minor prominence (units (unknown) date) of the renal unknown) collecting system on the left without obvious (unknown) (no (unknown) (unknown) mondays (units (unkno wn) date) unknown) (unknown) (no (unknown) (unknown) no flank pain (units ( unknown) date) unknown) (unknown) (no (unknown) (unknown) not (units (unkno wn) date) unknown) (unknown) (no (unknown) (unknown) of oxygen. Given (units (unknown) date) Reglan. With unknown) prolonged QT I do not want to use Zofran. (unknown) (no (unknown) (unknown) organism (units (unkno wn) date) unknown) (unknown) (no (unknown) (unknown) oxycodone 5 mg (units (unknown) date) capsule 5 mg PO Q4H unknown) PRN pain #14 caps 07/13/19 (unknown) (no (unknown) (unknown) oxycodone 5 mg (units (unknown) date) capsule unknown) (unknown) (no (unknown) (unknown) pain for further (units (unknown) date) evaluation. unknown) Tachycardic, tachypneic, afebrile on presentation (unknown) (no (unknown) (unknown) peripheral pulse (units (unknown) date) evaluation, skin unknown) exam (unknown) (no (unknown) (unknown) pigtail right (units ( unknown) date) ureteral stent unknown) without hydronephrosis or hydroureter. Urine (unknown) (no (unknown) (unknown) pigtail (units (unkno wn) date) unknown) (unknown) (no (unknown) (unknown) prior to (units (unkno wn) date) determining acuity unknown) of hospital needs for admission. (unknown) (no (unknown) (unknown) retained (units (unkno wn) date) calculus.? On the unknown) left there is mild prominence of the central renal (unknown) (no (unknown) (unknown) retention, pigtail (units (unknown) date) catheter still in unknown) place and mild prominence of the collecting (unknown) (no (unknown) (unknown) reviewed with the (units (unknown) date) patient and his unknown) daughter. Will wait to see repeat troponin (unknown) (no (unknown) (unknown) right ureteral (units (unknown) date) stent.? There is no unknown) right-sided hydronephrosis or hydroureter.? (unknown) (no (unknown) (unknown) rosuvastatin 40 mg (units (unknown) date) tablet 40 mg PO unknown) DAILY 07/05/19 07/13/19 (unknown) (no (unknown) (unknown) rosuvastatin 40 mg (units (unknown) date) tablet unknown) (unknown) (no (unknown) (unknown) sample is obtained (units (unknown) date) and 1725 cc of unknown) urine are initially drained. Ramírez catheter (unknown) (no (unknown) (unknown) saturations are (units (unknown) date) dropping slightly unknown) 87% with a good waveform. He started on 2 L (unknown) (no (unknown) (unknown) seen. (units (unkno wn) date) unknown) (unknown) (no (unknown) (unknown) showing signs of (units (unknown) date) good peripheral unknown) perfusion with warm extremities with good (unknown) (no (unknown) (unknown) signs of (units (unkno wn) date) obstruction. unknown) (unknown) (no (unknown) (unknown) states that he is (units (unknown) date) able to void but it unknown) is only intervals and he frequently wears (unknown) (no (unknown) (unknown) status: with acute (units (unknown) date) organ dysfunction unknown) Severe sepsis acute organ dysfunction type: (unknown) (no (unknown) (unknown) status: without (units (unknown) date) septic shock unknown) Qualified Code(s): A41.9 - Sepsis, unspecified (unknown) (no (unknown) (unknown) system but an (units (u nknown) date) obstructive urinary unknown) tract stone more distally within the ureter is (unknown) (no (unknown) (unknown) system on the (units ( unknown) date) right without unknown) evidence of stone urology will be consult today. (unknown) (no (unknown) (unknown) taken into (units (unk nown) date) unknown) (unknown) (no (unknown) (unknown) tamsulosin 0.4 mg (units (unknown) date) capsule 0.4 mg PO unknown) DAILY #60 caps 07/13/19 (unknown) (no (unknown) (unknown) tamsulosin 0.4 mg (units (unknown) date) capsule unknown) (unknown) (no (unknown) (unknown) that included in (units (unknown) date) the HPI. unknown) (unknown) (no (unknown) (unknown) to direct (units (unkn own) date) questions unknown) (unknown) (no (unknown) (unknown) unremarkable.? (units (unknown) date) unknown) Result panel 14 (unknown) (no (unknown) (unknown) (no value) (units (unk nown) date) unknown) (unknown) (no (unknown) (unknown) 01/31/22 (units (unkno wn) date) unknown) (unknown) (no (unknown) (unknown) [address] [place] [address] (units (unknown) date) unknown) (unknown) (no (unknown) (unknown) Accession Number: (units (unknown) date) [id number] unknown) (unknown) (no (unknown) (unknown) Age/Sex: 71 / M (units (unknown) date) Date of Service: unknown) (unknown) (no (unknown) (unknown) [place], [place] (units ( unknown) date) [id number] unknown) (unknown) (no (unknown) (unknown) Approved by: (units (u nknown) date) paola Andino M.D. on 01/31/2022 at 23:04 (unknown) (no (unknown) (unknown) Bones and chest (units (unknown) date) wall: No unknown) suspicious bony lesions. Overlying soft tissues (unknown) (no (unknown) (unknown) COMPARISON: (units (un known) date) [facility], unknown) CR, XR CHEST 2V, 01/31/2022, 19:27. (unknown) (no (unknown) (unknown) : 1950 (units (unknown) date) Acct:[id number] unknown) (unknown) (no (unknown) (unknown) Dictated by: (units (u nknown) date) Dwayne Meadows unknownSachin Vera on 01/31/2022 at 23:02 (unknown) (no (unknown) (unknown) FINDINGS: (units (unkn own) date) unknown) (unknown) (no (unknown) (unknown) IMPRESSION: Lines (units (unknown) date) and tubes in unknown) normal position. Bilateral pneumonia, right (unknown) (no (unknown) (unknown) INDICATIONS: post (units (unknown) date) intubation unknown) (unknown) (no (unknown) (unknown) [facility] (units (unknown) date) unknown) (unknown) (no (unknown) (unknown) Loc: ED (units (unkno wn) date) unknown) (unknown) (no (unknown) (unknown) Lungs and pleura: (units (unknown) date) Lungs are unknown) abnormal, with moderate pneumonia now present (unknown) (no (unknown) (unknown) [id number] (units (unk nown) date) unknown) (unknown) (no (unknown) (unknown) Mediastinum: (units (u nknown) date) Mediastinal unknown) contours appear normal. Heart size is normal. (unknown) (no (unknown) (unknown) Ordering (units (unkno wn) date) Provider: unknown) Kyleigh Castellanos MD (unknown) (no (unknown) (unknown) PROCEDURE: XR (units ( unknown) date) CHEST 1V unknown) (unknown) (no (unknown) (unknown) Patient: (units (unkno wn) date) Pascual Padilla Robert unknown) MR#: (unknown) (no (unknown) (unknown) Procedure: XR (units ( unknown) date) chest 1V unknown) (unknown) (no (unknown) (unknown) Signed (units (unkno wn) date) unknown) (unknown) (no (unknown) (unknown) Surgical changes (units (unknown) date) and devices: unknown) Endotracheal tube has been placed with its tip (unknown) (no (unknown) (unknown) TECHNIQUE: One (units (unknown) date) view of the chest unknown) was acquired. (unknown) (no (unknown) (unknown) XRay Report (units (un known) date) unknown) (unknown) (no (unknown) (unknown) appear (units (unkno wn) date) unknown) (unknown) (no (unknown) (unknown) aspiration as (units ( unknown) date) unknown) (unknown) (no (unknown) (unknown) distal SVC. (units (un known) date) unknown) (unknown) (no (unknown) (unknown) effusions or (units (u nknown) date) pneumothorax. unknown) (unknown) (no (unknown) (unknown) extending (units (unkn own) date) unknown) (unknown) (no (unknown) (unknown) extends into (units (u nknown) date) unknown) (unknown) (no (unknown) (unknown) greater than (units (u nknown) date) unknown) (unknown) (no (unknown) (unknown) left. This (units (unk nown) date) alveolar unknown) infiltration rapidly developed and that may indicate (unknown) (no (unknown) (unknown) pleural (units (unkno wn) date) unknown) (unknown) (no (unknown) (unknown) right mid and (units ( unknown) date) upper lung and a unknown) mild degree of perihilar left pneumonia.. No (unknown) (no (unknown) (unknown) the gastric (units (un known) date) lumen. Right unknown) internal jugular central line has been placed, with (unknown) (no (unknown) (unknown) the underlying (units (unknown) date) cause when unknown) compared to the chest plain film shortly before. (unknown) (no (unknown) (unknown) tip in the (units (unk nown) date) unknown) (unknown) (no (unknown) (unknown) to the inferior (units (unknown) date) margin of the unknown) medial clavicular heads. Esophagogastric tube (unknown) (no (unknown) (unknown) unremarkable. (units ( unknown) date) unknown) (unknown) (no (unknown) (unknown) within the (units (unk nown) date) unknown) Result panel 15 (unknown) (no date) (unknown) (unknown) 0.608 ng/ml (unkn own) (unknown) (no date) (unknown) (unknown) 0.608 ng/ml (unkn own) Result panel 16 (unknown) (no date) (unknown) (unknown) Negative (units (unkn own) unknown) (unknown) (no date) (unknown) (unknown) Negative (units (unkn own) unknown) Result panel 17 (unknown) (no (unknown) (unknown) (no value) (units (unk nown) date) unknown) (unknown) (no (unknown) (unknown) (Bydureon BCise) (units (unknown) date) unknown) (unknown) (no (unknown) (unknown) 0.4 mg PO DAILY (units (unknown) date) Qty: 60 0RF unknown) (unknown) (no (unknown) (unknown) 10 mg PO DAILY (units (unknown) date) unknown) (unknown) (no (unknown) (unknown) 01/31/22 01/31/22 (units (unknown) date) 01/31/22 unknown) Range/Units (unknown) (no (unknown) (unknown) 01/31/22 19:24 (units (unknown) date) unknown) (unknown) (no (unknown) (unknown) 01/31/22 20:00 (units (unknown) date) unknown) (unknown) (no (unknown) (unknown) 01/31/22 20:02 (units (unknown) date) unknown) (unknown) (no (unknown) (unknown) 01/31/22 20:03 (units (unknown) date) unknown) (unknown) (no (unknown) (unknown) 01/31/22 20:14 (units (unknown) date) unknown) (unknown) (no (unknown) (unknown) 01/31/22 20:28 (units (unknown) date) unknown) (unknown) (no (unknown) (unknown) 01/31/22 21:54 (units (unknown) date) unknown) (unknown) (no (unknown) (unknown) 01/31/22 22:00 (units (unknown) date) unknown) (unknown) (no (unknown) (unknown) 01/31/22 22:31 (units (unknown) date) unknown) (unknown) (no (unknown) (unknown) 01/31/22 (units (unkno wn) date) unknown) (unknown) (no (unknown) (unknown) 100 mg PO DAILY (units (unknown) date) unknown) (unknown) (no (unknown) (unknown) 1000pm patient is (units (unknown) date) re-evaluated. He is unknown) having fever and rigors and Tylenol as (unknown) (no (unknown) (unknown) 1015pm patient is (units (unknown) date) having an episode unknown) of emesis. Currently afebrile. Oxygen (unknown) (no (unknown) (unknown) 1055 Acute (units (unk nown) date) deterioration with unknown) severe respiratory strip distress, dropping (unknown) (no (unknown) (unknown) 130 range. Blood (units (unknown) date) pressure was unknown) initially 200/110 and is now down to 125/30 with (unknown) (no (unknown) (unknown) 145 mg PO DAILY (units (unknown) date) unknown) (unknown) (no (unknown) (unknown) 19:06 01/31/22 (units (unknown) date) unknown) (unknown) (no (unknown) (unknown) 19:19 01/31/22 (units (unknown) date) unknown) (unknown) (no (unknown) (unknown) 19:20 01/31/22 (units (unknown) date) unknown) (unknown) (no (unknown) (unknown) 19:20 (units (unkno wn) date) unknown) (unknown) (no (unknown) (unknown) 19:30 01/31/22 (units (unknown) date) unknown) (unknown) (no (unknown) (unknown) 19:30 (units (unkno wn) date) unknown) (unknown) (no (unknown) (unknown) 2 mg SUBCUT QWEEK (units (unknown) date) unknown) (unknown) (no (unknown) (unknown) 20:00 01/31/22 (units (unknown) date) unknown) (unknown) (no (unknown) (unknown) 20:00 20:00 20:00 (units (unknown) date) unknown) (unknown) (no (unknown) (unknown) 20:14 22:13 22:13 (units (unknown) date) unknown) (unknown) (no (unknown) (unknown) 20:30 01/31/22 (units (unknown) date) unknown) (unknown) (no (unknown) (unknown) 20:30 (units (unkno wn) date) unknown) (unknown) (no (unknown) (unknown) 20:45 01/31/22 (units (unknown) date) unknown) (unknown) (no (unknown) (unknown) 21:07 (units (unkno wn) date) unknown) (unknown) (no (unknown) (unknown) 21:11 01/31/22 (units (unknown) date) unknown) (unknown) (no (unknown) (unknown) 21:15 01/31/22 (units (unknown) date) unknown) (unknown) (no (unknown) (unknown) 21:30 01/31/22 (units (unknown) date) unknown) (unknown) (no (unknown) (unknown) 21:30 (units (unkno wn) date) unknown) (unknown) (no (unknown) (unknown) 21:46 01/31/22 (units (unknown) date) unknown) (unknown) (no (unknown) (unknown) 21:46 (units (unkno wn) date) unknown) (unknown) (no (unknown) (unknown) 22:00 01/31/22 (units (unknown) date) unknown) (unknown) (no (unknown) (unknown) 22:05 (units (unkno wn) date) unknown) (unknown) (no (unknown) (unknown) 22:15 (units (unkno wn) date) unknown) (unknown) (no (unknown) (unknown) 26 units subcut (units (unknown) date) DAILY unknown) (unknown) (no (unknown) (unknown) 30 particular was (units (unknown) date) initiated. He is unknown) allergic to penicillin so rather than Zosyn (unknown) (no (unknown) (unknown) 40 mg PO DAILY (units (unknown) date) unknown) (unknown) (no (unknown) (unknown) 5 mg PO Q4H PRN (units (unknown) date) (Reason: pain) Qty: unknown) 14 0RF (unknown) (no (unknown) (unknown) 50 mg PO DAILY (units (unknown) date) unknown) (unknown) (no (unknown) (unknown) 500 mg PO BID (units ( unknown) date) unknown) (unknown) (no (unknown) (unknown) 71-year-old (units (un known) date) gentleman presents unknown) acutely ill, febrile pale with severe abdominal (unknown) (no (unknown) (unknown) 71-year-old (units (un known) date) gentleman with unknown) history of hypertension, type 2 diabetes, (unknown) (no (unknown) (unknown) ? 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 (unknown) (no (unknown) (unknown) ABDOMEN: (units (unkno wn) date) unknown) (unknown) (no (unknown) (unknown) ALT (<50) IU/L (units (unknown) date) unknown) (unknown) (no (unknown) (unknown) ALT 16 (<50) IU/L (units (unknown) date) unknown) (unknown) (no (unknown) (unknown) APTT (26-36) (units (u nknown) date) SECONDS unknown) (unknown) (no (unknown) (unknown) APTT 31 (26-36) (units (unknown) date) SECONDS unknown) (unknown) (no (unknown) (unknown) AST (17-59) IU/L (units (unknown) date) unknown) (unknown) (no (unknown) (unknown) AST 31 (17-59) (units (unknown) date) IU/L unknown) (unknown) (no (unknown) (unknown) Abdomen: Mild (units ( unknown) date) distention, diffuse unknown) abdominal pain without rebound or guarding, (unknown) (no (unknown) (unknown) Abdominal Nodes:? (units (unknown) date) No retroperitoneal unknown) or mesenteric adenopathy by size criteria.? (unknown) (no (unknown) (unknown) Acetaminophen (units ( unknown) date) (Acetaminophen 325 unknown) Mg Tablet) 975 mg PO NOW ONE (unknown) (no (unknown) (unknown) Acute kidney (units (u nknown) date) injury with unknown) creatinine increased from 1.3-1.6. Likely compounded (unknown) (no (unknown) (unknown) Acute (units (unkno wn) date) pyelonephritis, unknown) Benign prostatic hyperplasia, Acute urinary retention (unknown) (no (unknown) (unknown) Additional (units (unk nown) date) Information: unknown) (unknown) (no (unknown) (unknown) Admin: 01/31/22 (units (unknown) date) 20:13 Dose: 200 unknown) mls/hr (unknown) (no (unknown) (unknown) Adrenal Glands:? (units (unknown) date) Unremarkable.? ? unknown) (unknown) (no (unknown) (unknown) Age/Sex: 71 / M (units (unknown) date) unknown) (unknown) (no (unknown) (unknown) Albumin (3.5-5.0) (units (unknown) date) g/dL unknown) (unknown) (no (unknown) (unknown) Albumin 4.2 (units (un known) date) (3.5-5.0) g/dL unknown) (unknown) (no (unknown) (unknown) Albumin/Globulin (units (unknown) date) Ratio (1.0-2.8) unknown) (unknown) (no (unknown) (unknown) Albumin/Globulin (units (unknown) date) Ratio 1.2 (1.0-2.8) unknown) (unknown) (no (unknown) (unknown) Alkaline (units (unkno wn) date) Phosphatase unknown) (38-126) U/L (unknown) (no (unknown) (unknown) Alkaline (units (unkno wn) date) Phosphatase 66 unknown) (38-126) U/L (unknown) (no (unknown) (unknown) Allergies (units (unkn own) date) unknown) (unknown) (no (unknown) (unknown) Allergy/AdvReac (units (unknown) date) Type Severity unknown) Reaction Status Date / Time (unknown) (no (unknown) (unknown) Amiodarone HCl (units (unknown) date) (Amiodarone 150 unknown) Mg/3 Ml Vial) 300 mg IV NOW ONE (unknown) (no (unknown) (unknown) Amiodarone (units (unk nown) date) HCl/Dextrose unknown) (Nexterone) 360 mg in 200 mls @ 33.333 mls/hr IV NOW (unknown) (no (unknown) (unknown) Anisocytosis 1+ H (units (unknown) date) unknown) (unknown) (no (unknown) (unknown) Anisocytosis (units (u nknown) date) unknown) (unknown) (no (unknown) (unknown) 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, unknown) Ramírez catheter now in place (unknown) (no (unknown) (unknown) BUN (9-20) mg/dL (units (unknown) date) unknown) (unknown) (no (unknown) (unknown) BUN 22 H (9-20) (units (unknown) date) mg/dL unknown) (unknown) (no (unknown) (unknown) BUN/Creatinine (units (unknown) date) Ratio (6-22) unknown) (unknown) (no (unknown) (unknown) BUN/Creatinine (units (unknown) date) Ratio 13.8 (6-22) unknown) (unknown) (no (unknown) (unknown) Band Neutrophils % (units (unknown) date) (3-7) % unknown) (unknown) (no (unknown) (unknown) Band Neutrophils % (units (unknown) date) 12.0 H (3-7) % unknown) (unknown) (no (unknown) (unknown) Baso # (Auto) Not (units (unknown) date) Reportable unknown) (unknown) (no (unknown) (unknown) Baso # (Auto) (units ( unknown) date) unknown) (unknown) (no (unknown) (unknown) Baso % (Auto) Not (units (unknown) date) Reportable unknown) (unknown) (no (unknown) (unknown) Baso % (Auto) (units ( unknown) date) unknown) (unknown) (no (unknown) (unknown) Bedside Urine (units ( unknown) date) Bilirubin - unknown) Negative (unknown) (no (unknown) (unknown) Bedside Urine (units ( unknown) date) Glucose Negative unknown) (unknown) (no (unknown) (unknown) Bedside Urine (units ( unknown) date) Ketone - Negative unknown) (unknown) (no (unknown) (unknown) Bedside Urine (units ( unknown) date) Leukocytes + 70 unknown) (unknown) (no (unknown) (unknown) Bedside Urine (units ( unknown) date) Nitrite - Negative unknown) (unknown) (no (unknown) (unknown) Bedside Urine (units ( unknown) date) Occult Blood +/ unknown) (unknown) (no (unknown) (unknown) Bedside Urine (units ( unknown) date) Protein + 30 unknown) (unknown) (no (unknown) (unknown) Bedside Urine (units ( unknown) date) Urobilinogen - unknown) Negative (unknown) (no (unknown) (unknown) Bedside Urine pH 6 (units (unknown) date) unknown) (unknown) (no (unknown) (unknown) Biliary ducts:? (units (unknown) date) Unremarkable.? ? unknown) (unknown) (no (unknown) (unknown) Bladder:? (units (unkn own) date) Unremarkable.? ? unknown) (unknown) (no (unknown) (unknown) Blood Culture Stat (units (unknown) date) unknown) (unknown) (no (unknown) (unknown) Blood Pressure (units (unknown) date) 127/80 unknown) (unknown) (no (unknown) (unknown) Blood Pressure (units (unknown) date) 132/79 unknown) (unknown) (no (unknown) (unknown) Blood Pressure (units (unknown) date) 134/75 10 unknown) 19:06 (unknown) (no (unknown) (unknown) Blood Pressure (units (unknown) date) 134/75 139/80 unknown) (unknown) (no (unknown) (unknown) Blood Pressure (units (unknown) date) 136/78 unknown) (unknown) (no (unknown) (unknown) Blood Pressure (units (unknown) date) 137/76 unknown) (unknown) (no (unknown) (unknown) Blood Pressure (units (unknown) date) 138/78 146/84 H unknown) (unknown) (no (unknown) (unknown) Blood Pressure (units (unknown) date) 150/100 H unknown) (unknown) (no (unknown) (unknown) Blood Pressure (units (unknown) date) 153/77 H 128/76 unknown) (unknown) (no (unknown) (unknown) Blood Pressure (units (unknown) date) unknown) (unknown) (no (unknown) (unknown) Bones and chest (units (unknown) date) wall:? No unknown) suspicious bony abnormalities.? Soft tissues appear (unknown) (no (unknown) (unknown) Bones:? (units (unkno wn) date) Unremarkable.? ? unknown) (unknown) (no (unknown) (unknown) Bydureon BCise 2 (units (unknown) date) mg/0.85 mL unknown) auto-injector (unknown) (no (unknown) (unknown) CK-MB (CK-2) Rel (units (unknown) date) Index TNP unknown) (unknown) (no (unknown) (unknown) CK-MB (CK-2) Rel (units (unknown) date) Index unknown) (unknown) (no (unknown) (unknown) CK-MB (CK-2) TNP (units (unknown) date) unknown) (unknown) (no (unknown) (unknown) CK-MB (CK-2) (units (u nknown) date) unknown) (unknown) (no (unknown) (unknown) COVID19 -Nasal (units (unknown) date) RAPID/Pre-Proc Stat unknown) (unknown) (no (unknown) (unknown) CT abdomen pelvis (units (unknown) date) w con Stat unknown) (unknown) (no (unknown) (unknown) CT scan - (units (unkn own) date) abdomen/pelvis: unknown) (unknown) (no (unknown) (unknown) CT scan does not (units (unknown) date) suggest acute unknown) abscess, diverticulitis or appendicitis. Some (unknown) (no (unknown) (unknown) Calcium (8.4-10.2) (units (unknown) date) mg/dL unknown) (unknown) (no (unknown) (unknown) Calcium 8.1 L (units ( unknown) date) (8.4-10.2) mg/dL unknown) (unknown) (no (unknown) (unknown) Carbon Dioxide (units (unknown) date) (22-32) mmol/L unknown) (unknown) (no (unknown) (unknown) Carbon Dioxide 23 (units (unknown) date) (22-32) mmol/L unknown) (unknown) (no (unknown) (unknown) Cardiac: (units (unkno wn) date) Tachycardic without unknown) murmurs (unknown) (no (unknown) (unknown) Ceftriaxone Sodium (units (unknown) date) 2,000 mg/ (Sodium unknown) Chloride) 100 mls @ 200 mls/hr IV NOW ONE (unknown) (no (unknown) (unknown) Chest [XR chest (units (unknown) date) 1V] Stat unknown) (unknown) (no (unknown) (unknown) Chest x-ray: (units (u nknown) date) unknown) (unknown) (no (unknown) (unknown) Chief complaint: (units (unknown) date) Abdominal Pain unknown) (unknown) (no (unknown) (unknown) Chloride (98-107) (units (unknown) date) mmol/L unknown) (unknown) (no (unknown) (unknown) Chloride 96 L (units ( unknown) date) (98-107) mmol/L unknown) (unknown) (no (unknown) (unknown) Jillian Rosales, (units (unknown) date) MD [Primary Care unknown) Provider] (unknown) (no (unknown) (unknown) Clinical (units (unkno wn) date) Impression: unknown) (unknown) (no (unknown) (unknown) Clinical reason (units (unknown) date) for NOT initiating unknown) fluid bolus: (unknown) (no (unknown) (unknown) Complete Blood (units (unknown) date) Count AUTO DIFF unknown) Stat (unknown) (no (unknown) (unknown) Comprehensive (units ( unknown) date) Metabolic Panel unknown) Stat (unknown) (no (unknown) (unknown) Course (units (unkno wn) date) unknown) (unknown) (no (unknown) (unknown) Creatinine (units (unk nown) date) (0.66-1.25) mg/dL unknown) (unknown) (no (unknown) (unknown) Creatinine 1.60 H (units (unknown) date) (0.66-1.25) mg/dL unknown) (unknown) (no (unknown) (unknown) Currently at a (units (unknown) date) rate of a unknown) (unknown) (no (unknown) (unknown) D Dimer Stat (units (u nknown) date) unknown) (unknown) (no (unknown) (unknown) D-Dimer (<500) (units (unknown) date) ng/ml unknown) (unknown) (no (unknown) (unknown) D-Dimer 821 H (units ( unknown) date) (<500) ng/ml unknown) (unknown) (no (unknown) (unknown) : 1950 (units (unknown) date) Acct:[id number] unknown) (unknown) (no (unknown) (unknown) Date of Service: (units (unknown) date) 01/31/22 unknown) (unknown) (no (unknown) (unknown) Departure (units (unkn own) date) unknown) (unknown) (no (unknown) (unknown) Dictated by: Dwayne (units (unknown) date) Jody Meadows on unknown) 01/31/2022 at 20:08 ? ? (unknown) (no (unknown) (unknown) Dictated by: Dwayne (units (unknown) date) Jody Meadows on unknown) 01/31/2022 at 21:21 ? ? (unknown) (no (unknown) (unknown) Discharge Plan (units (unknown) date) unknown) (unknown) (no (unknown) (unknown) Discontinued (units (u nknown) date) Medications unknown) (unknown) (no (unknown) (unknown) Documented By: NR (units (unknown) date) unknown) (unknown) (no (unknown) (unknown) ECG Data (units (unkno wn) date) unknown) (unknown) (no (unknown) (unknown) ED Orders (units (unkn own) date) unknown) (unknown) (no (unknown) (unknown) EKG-12 Lead Stat (units (unknown) date) unknown) (unknown) (no (unknown) (unknown) ER Physician: (units ( unknown) date) Kyleigh Castellanos MD unknown) (unknown) (no (unknown) (unknown) Emergency Report (units (unknown) date) unknown) (unknown) (no (unknown) (unknown) Eos % (Auto) Not (units (unknown) date) Reportable unknown) (unknown) (no (unknown) (unknown) Eos % (Auto) (units (u nknown) date) unknown) (unknown) (no (unknown) (unknown) Esterase (units (unkno wn) date) unknown) (unknown) (no (unknown) (unknown) Estimated GFR (units ( unknown) date) (>60) mL/min unknown) (unknown) (no (unknown) (unknown) Estimated GFR 45 L (units (unknown) date) (>60) mL/min unknown) (unknown) (no (unknown) (unknown) Exam (units (unkno wn) date) unknown) (unknown) (no (unknown) (unknown) Extremities: No (units (unknown) date) trauma, well unknown) perfused (unknown) (no (unknown) (unknown) FINDINGS:? (units (unk nown) date) unknown) (unknown) (no (unknown) (unknown) Full and (units (unkno wn) date) symmetrical air unknown) movement, no respiratory distress appreciated (unknown) (no (unknown) (unknown) Gallbladder:? (units ( unknown) date) Unremarkable.? ? unknown) (unknown) (no (unknown) (unknown) General (units (unkno wn) date) unknown) (unknown) (no (unknown) (unknown) General: Acutely (units (unknown) date) ill-appearing, unknown) pale, significantly fatigued but will respond (unknown) (no (unknown) (unknown) Globulin (1.7-4.1) (units (unknown) date) g/dL unknown) (unknown) (no (unknown) (unknown) Globulin 3.4 (units (u nknown) date) (1.7-4.1) g/dL unknown) (unknown) (no (unknown) (unknown) Glucose (80-110) (units (unknown) date) mg/dL unknown) (unknown) (no (unknown) (unknown) Glucose 262 H (units ( unknown) date) (80-110) mg/dL unknown) (unknown) (no (unknown) (unknown) Goal directed (units ( unknown) date) therapy within 3 unknown) hours of septic shock or initial hypotension (unknown) (no (unknown) (unknown) Goal directed (units ( unknown) date) treatment unknown) (unknown) (no (unknown) (unknown) HEENT: Moist (units (u nknown) date) mucous membranes, unknown) normal sclera with reactive pupils, (unknown) (no (unknown) (unknown) HPI - General (units ( unknown) date) Adult unknown) (unknown) (no (unknown) (unknown) HPI narrative: (units (unknown) date) unknown) (unknown) (no (unknown) (unknown) Hct (41-53) % (units ( unknown) date) unknown) (unknown) (no (unknown) (unknown) Hct 38.2 L (41-53) (units (unknown) date) % unknown) (unknown) (no (unknown) (unknown) He has a history (units (unknown) date) of kidney stones unknown) and 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 No (units (unk nown) date) significant unknown) findings. (unknown) (no (unknown) (unknown) Hgb (13.5-17.5) (units (unknown) date) g/dL unknown) (unknown) (no (unknown) (unknown) Hgb 13.3 L (units (unk nown) date) (13.5-17.5) g/dL unknown) (unknown) (no (unknown) (unknown) History of Present (units (unknown) date) Illness unknown) (unknown) (no (unknown) (unknown) History of kidney (units (unknown) date) stones unknown) (unknown) (no (unknown) (unknown) Home Medications (units (unknown) date) unknown) (unknown) (no (unknown) (unknown) Hyperlipidemia (units (unknown) date) unknown) (unknown) (no (unknown) (unknown) Hypertension (units (u nknown) date) unknown) (unknown) (no (unknown) (unknown) IMPRESSION:? No (units (unknown) date) abscess found, no unknown) evidence of colitis or diverticulitis, or (unknown) (no (unknown) (unknown) IMPRESSION:? (units (u nknown) date) Reduced inspiratory unknown) volume, no acute disease when this factor is (unknown) (no (unknown) (unknown) INR (0.9-1.3) (units ( unknown) date) unknown) (unknown) (no (unknown) (unknown) INR 1.6 H (units (unkn own) date) (0.9-1.3) unknown) (unknown) (no (unknown) (unknown) Image quality:? (units (unknown) date) Excellent.? unknown) (unknown) (no (unknown) (unknown) Imaging Data (units (u nknown) date) unknown) (unknown) (no (unknown) (unknown) Initial Vital (units ( unknown) date) Signs unknown) (unknown) (no (unknown) (unknown) Initial Vital (units ( unknown) date) Signs: unknown) (unknown) (no (unknown) (unknown) Initial chest x-ray (units (unknown) date) does not suggest unknown) significant infiltrates or congestive heart (unknown) (no (unknown) (unknown) Initial (units (unkno wn) date) presumption was unknown) sepsis or developing sepsis. Fluid resuscitation with (unknown) (no (unknown) (unknown) Interpretation: (units (unknown) date) unknown) (unknown) (no (unknown) (unknown) [facility] (units (unknown) date) [address] unknown) [place] [address] (unknown) (no (unknown) (unknown) Kidney stones (units ( unknown) date) unknown) (unknown) (no (unknown) (unknown) Kidneys and (units (un known) date) Ureters:? 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 (unknown) (no (unknown) (unknown) Lab Data (units (unkno wn) date) unknown) (unknown) (no (unknown) (unknown) Lab Results (units (un known) date) unknown) (unknown) (no (unknown) (unknown) Label Comments: (units (unknown) date) unknown) (unknown) (no (unknown) (unknown) Labs: (units (unkno wn) date) unknown) (unknown) (no (unknown) (unknown) Lactate (0.7-2.1) (units (unknown) date) mmol/L unknown) (unknown) (no (unknown) (unknown) Lactate (Lactic (units (unknown) date) Acid) Stat unknown) (unknown) (no (unknown) (unknown) Lactate 3.0 H (units ( unknown) date) (0.7-2.1) mmol/L unknown) (unknown) (no (unknown) (unknown) Lactic elevated at (units (unknown) date) 3.0, significantly unknown) elevated procalcitonin, urine certainly (unknown) (no (unknown) (unknown) Last Admin: (units (un known) date) 01/31/22 20:17 unknown) Dose: 100 mls/hr (unknown) (no (unknown) (unknown) Last Admin: (units (un known) date) 01/31/22 20:17 unknown) Dose: 920.79 mls/hr (unknown) (no (unknown) (unknown) Last Admin: (units (un known) date) 01/31/22 22:05 unknown) Dose: 975 mg (unknown) (no (unknown) (unknown) Last Admin: (units (un known) date) 01/31/22 22:18 unknown) Dose: 10 mg (unknown) (no (unknown) (unknown) Last Infusion: (units (unknown) date) 01/31/22 21:10 unknown) Dose: 0 mls/hr (unknown) (no (unknown) (unknown) Left axis (units (unkn own) date) deviation unknown) (unknown) (no (unknown) (unknown) Liver:? (units (unkno wn) date) Unremarkable.? ? unknown) (unknown) (no (unknown) (unknown) Lung bases:? (units (u nknown) date) Unremarkable. unknown) (unknown) (no (unknown) (unknown) Lungs and pleura:? (units (unknown) date) Lungs are clear.? unknown) No pleural effusions or pneumothorax.? (unknown) (no (unknown) (unknown) Lymph # (Auto) Not (units (unknown) date) Reportable unknown) (unknown) (no (unknown) (unknown) Lymph # (Auto) (units (unknown) date) unknown) (unknown) (no (unknown) (unknown) Lymph % (Auto) Not (units (unknown) date) Reportable unknown) (unknown) (no (unknown) (unknown) Lymph % (Auto) (units (unknown) date) unknown) (unknown) (no (unknown) (unknown) Lymphocytes % (units ( unknown) date) (Manual) (25-45) % unknown) (unknown) (no (unknown) (unknown) Lymphocytes % (units ( unknown) date) (Manual) 5.0 L unknown) (25-45) % (unknown) (no (unknown) (unknown) [id number] (units (unk nown) date) unknown) (unknown) (no (unknown) (unknown) MCH (26-34) PG (units (unknown) date) unknown) (unknown) (no (unknown) (unknown) MCH 28.5 (26-34) (units (unknown) date) PG unknown) (unknown) (no (unknown) (unknown) MCHC (30-36) % (units (unknown) date) unknown) (unknown) (no (unknown) (unknown) MCHC 34.8 (30-36) (units (unknown) date) % unknown) (unknown) (no (unknown) (unknown) MCV (80-100) fL (units (unknown) date) unknown) (unknown) (no (unknown) (unknown) MCV 81.8 (80-100) (units (unknown) date) fL unknown) (unknown) (no (unknown) (unknown) MDM Narrative (units ( unknown) date) unknown) (unknown) (no (unknown) (unknown) Measure peak (units (u nknown) date) expiratory flow unknown) ONCE (unknown) (no (unknown) (unknown) Mediastinum:? (units ( unknown) date) Mediastinal unknown) contours are normal.? Heart size is normal.? (unknown) (no (unknown) (unknown) Medical Decision (units (unknown) date) Making unknown) (unknown) (no (unknown) (unknown) Medical History (units (unknown) date) (Updated 01/31/22 @ unknown) 22:11 by Kyleigh Castellanos MD) (unknown) (no (unknown) (unknown) Medical decision (units (unknown) date) making narrative: unknown) (unknown) (no (unknown) (unknown) Medication (units (unk nown) date) Instructions unknown) Recorded Confirmed (unknown) (no (unknown) (unknown) Medication (units (unk nown) date) Instructions unknown) Recorded (unknown) (no (unknown) (unknown) Metoclopramide HCl (units (unknown) date) (Metoclopramide 10 unknown) Mg/2 Ml Inj) 10 mg IV NOW ONE (unknown) (no (unknown) (unknown) Metronidazole (units ( unknown) date) (Flagyl) 500 mg in unknown) 100 mls @ 100 mls/hr IV NOW ONE (unknown) (no (unknown) (unknown) Miscellaneous: No (units (unknown) date) hernias are seen. ? unknown) ? (unknown) (no (unknown) (unknown) [place] # (Auto) Not (units (unknown) date) Reportable unknown) (unknown) (no (unknown) (unknown) [place] # (Auto) (units ( unknown) date) unknown) (unknown) (no (unknown) (unknown) [place] % (Auto) Not (units (unknown) date) Reportable unknown) (unknown) (no (unknown) (unknown) [place] % (Auto) (units ( unknown) date) unknown) (unknown) (no (unknown) (unknown) Monocytes % (units (un known) date) (Manual) (2-11) % unknown) (unknown) (no (unknown) (unknown) Monocytes % (units (un known) date) (Manual) 1.0 L unknown) (2-11) % (unknown) (no (unknown) (unknown) Must include vital (units (unknown) date) signs, unknown) cardiopulmonary exam, capillary refill, (unknown) (no (unknown) (unknown) Narrative: (units (unk nown) date) unknown) (unknown) (no (unknown) (unknown) Neck: No JVD, (units ( unknown) date) supple unknown) (unknown) (no (unknown) (unknown) Neurologic: (units (un known) date) Globally weak but unknown) Grossly neurologically intact with no obvious (unknown) (no (unknown) (unknown) Neut % (Auto) Not (units (unknown) date) Reportable unknown) (unknown) (no (unknown) (unknown) Neut % (Auto) (units ( unknown) date) unknown) (unknown) (no (unknown) (unknown) Neutrophils # (units ( unknown) date) (Manual) unknown) ([id number]) /uL (unknown) (no (unknown) (unknown) Neutrophils # (units ( unknown) date) (Manual) 92212 H unknown) ([id number]) /uL (unknown) (no (unknown) (unknown) No Action (units (unkn own) date) unknown) (unknown) (no (unknown) (unknown) ONE; Protocol (units ( unknown) date) unknown) (unknown) (no (unknown) (unknown) Ordered: (units (unkno wn) date) unknown) (unknown) (no (unknown) (unknown) Orders (units (unkno wn) date) unknown) (unknown) (no (unknown) (unknown) Oxygen Delivery (units (unknown) date) Method 01/31/22 unknown) 19:06 (unknown) (no (unknown) (unknown) Oxygen Delivery (units (unknown) date) Method Room Air unknown) Room Air (unknown) (no (unknown) (unknown) Oxygen Delivery (units (unknown) date) Method unknown) (unknown) (no (unknown) (unknown) PELVIS: (units (unkno wn) date) unknown) (unknown) (no (unknown) (unknown) PT (10.1-12.7) (units (unknown) date) SECONDS unknown) (unknown) (no (unknown) (unknown) PT 18.9 H (units (unkn own) date) (10.1-12.7) SECONDS unknown) (unknown) (no (unknown) (unknown) Pancreas:? (units (unk nown) date) Unremarkable.? ? unknown) (unknown) (no (unknown) (unknown) Partial (units (unkno wn) date) Thromboplastin Time unknown) Stat (unknown) (no (unknown) (unknown) Patient History (units (unknown) date) unknown) (unknown) (no (unknown) (unknown) Patient: (units (unkno wn) date) Pascual Padilla unknown) MR#: (unknown) (no (unknown) (unknown) Pelvic Nodes: No (units (unknown) date) enlarged lymph unknown) nodes.? (unknown) (no (unknown) (unknown) Pelvic Organs:? (units (unknown) date) Unremarkable.? ? unknown) (unknown) (no (unknown) (unknown) Penicillins (units (un known) date) Allergy Rash unknown) Verified 01/31/22 19:12 (unknown) (no (unknown) (unknown) Peritoneum:? No (units (unknown) date) abnormal unknown) intraperitoneal fluid.? No free air.? (unknown) (no (unknown) (unknown) Plt Count (units (unkn own) date) (150-400) X103/uL unknown) (unknown) (no (unknown) (unknown) Plt Count 156 (units ( unknown) date) (150-400) X103/uL unknown) (unknown) (no (unknown) (unknown) Point of care (units ( unknown) date) testing: unknown) (unknown) (no (unknown) (unknown) Potassium (units (unkn own) date) (3.4-5.1) mmol/L unknown) (unknown) (no (unknown) (unknown) Potassium 3.6 (units ( unknown) date) (3.4-5.1) mmol/L unknown) (unknown) (no (unknown) (unknown) Prescriptions: (units (unknown) date) unknown) (unknown) (no (unknown) (unknown) Previous Rx's (units ( unknown) date) unknown) (unknown) (no (unknown) (unknown) Procalcitonin (units ( unknown) date) (<0.5) ng/mL unknown) (unknown) (no (unknown) (unknown) Procalcitonin 4.70 (units (unknown) date) H (<0.5) ng/mL unknown) (unknown) (no (unknown) (unknown) Procalcitonin Stat (units (unknown) date) unknown) (unknown) (no (unknown) (unknown) Propofol (units (unkno wn) date) (Propofol) 1,000 mg unknown) in 100 mls @ 2.762 mls/hr IV TITRATE ANGI; Protocol (unknown) (no (unknown) (unknown) Prothrombin Time (units (unknown) date) INR Stat unknown) (unknown) (no (unknown) (unknown) Psych: (units (unkno wn) date) Cooperative, unknown) significant fatigue (unknown) (no (unknown) (unknown) Pulse Oximetry 100 (units (unknown) date) unknown) (unknown) (no (unknown) (unknown) Pulse Oximetry 81 (units (unknown) date) L unknown) (unknown) (no (unknown) (unknown) Pulse Oximetry 94 (units (unknown) date) unknown) (unknown) (no (unknown) (unknown) Pulse Oximetry 97 (units (unknown) date) 95 unknown) (unknown) (no (unknown) (unknown) Pulse Oximetry 97 (units (unknown) date) 96 unknown) (unknown) (no (unknown) (unknown) Pulse Oximetry 98 (units (unknown) date) 01/31/22 19:06 unknown) (unknown) (no (unknown) (unknown) Pulse Oximetry 98 (units (unknown) date) 95 unknown) (unknown) (no (unknown) (unknown) Pulse Oximetry 98 (units (unknown) date) 97 unknown) (unknown) (no (unknown) (unknown) Pulse Oximetry 99 (units (unknown) date) unknown) (unknown) (no (unknown) (unknown) Pulse Rate 117 H (units (unknown) date) 01/31/22 19:06 unknown) (unknown) (no (unknown) (unknown) Pulse Rate 117 H (units (unknown) date) 124 H unknown) (unknown) (no (unknown) (unknown) Pulse Rate 118 H (units (unknown) date) 67 unknown) (unknown) (no (unknown) (unknown) Pulse Rate 119 H (units (unknown) date) 120 H unknown) (unknown) (no (unknown) (unknown) Pulse Rate 119 H (units (unknown) date) unknown) (unknown) (no (unknown) (unknown) Pulse Rate 122 H (units (unknown) date) 116 H unknown) (unknown) (no (unknown) (unknown) Pulse Rate 122 H (units (unknown) date) unknown) (unknown) (no (unknown) (unknown) Pulse Rate 124 H (units (unknown) date) 139 H unknown) (unknown) (no (unknown) (unknown) Pulse Rate 143 H (units (unknown) date) unknown) (unknown) (no (unknown) (unknown) Pulse Rate 144 H (units (unknown) date) unknown) (unknown) (no (unknown) (unknown) QTC prolonged at (units (unknown) date) 583 milliseconds unknown) (unknown) (no (unknown) (unknown) Qualifiers: (units (un known) date) unknown) (unknown) (no (unknown) (unknown) RBC (4.5-5.9) (units ( unknown) date) X106/uL unknown) (unknown) (no (unknown) (unknown) RBC 4.66 (4.5-5.9) (units (unknown) date) X106/uL unknown) (unknown) (no (unknown) (unknown) RBC Morphology See (units (unknown) date) below unknown) (unknown) (no (unknown) (unknown) RBC Morphology (units (unknown) date) unknown) (unknown) (no (unknown) (unknown) RDW (11.6-14.8) % (units (unknown) date) unknown) (unknown) (no (unknown) (unknown) RDW 14.0 (units (unkno wn) date) (11.6-14.8) % unknown) (unknown) (no (unknown) (unknown) RT Consult Eval (units (unknown) date) and Treat Now unknown) (unknown) (no (unknown) (unknown) Radiologist's (units ( unknown) date) Impression: unknown) (unknown) (no (unknown) (unknown) Referrals: (units (unk nown) date) unknown) (unknown) (no (unknown) (unknown) Related Data (units (u nknown) date) unknown) (unknown) (no (unknown) (unknown) Remainder of (units (u nknown) date) complete review of unknown) systems is otherwise unremarkable except for (unknown) (no (unknown) (unknown) Respiratory Rate (units (unknown) date) 25 H 42 H unknown) (unknown) (no (unknown) (unknown) Respiratory Rate (units (unknown) date) 25 H unknown) (unknown) (no (unknown) (unknown) Respiratory Rate (units (unknown) date) 30 H unknown) (unknown) (no (unknown) (unknown) Respiratory Rate (units (unknown) date) 31 H unknown) (unknown) (no (unknown) (unknown) Respiratory Rate (units (unknown) date) 35 H 01/31/22 19:06 unknown) (unknown) (no (unknown) (unknown) Respiratory Rate (units (unknown) date) 35 H unknown) (unknown) (no (unknown) (unknown) Respiratory Rate (units (unknown) date) 37 H unknown) (unknown) (no (unknown) (unknown) Respiratory Rate (units (unknown) date) 39 H 41 H unknown) (unknown) (no (unknown) (unknown) Respiratory Rate (units (unknown) date) 40 H unknown) (unknown) (no (unknown) (unknown) Respiratory Rate (units (unknown) date) 43 H unknown) (unknown) (no (unknown) (unknown) Respiratory: Lungs (units (unknown) date) are clear to unknown) auscultation, no wheezing no rales no rhonchi. (unknown) (no (unknown) (unknown) Result diagrams: (units (unknown) date) unknown) (unknown) (no (unknown) (unknown) Review of Systems (units (unknown) date) unknown) (unknown) (no (unknown) (unknown) SARS-CoV-2 (PCR) (units (unknown) date) (Negative) unknown) (unknown) (no (unknown) (unknown) SARS-CoV-2 (PCR) (units (unknown) date) Negative (Negative) unknown) (unknown) (no (unknown) (unknown) Seg Neutrophils % (units (unknown) date) (38-70) % unknown) (unknown) (no (unknown) (unknown) Seg Neutrophils % (units (unknown) date) 82.0 H (38-70) % unknown) (unknown) (no (unknown) (unknown) Sepsis type: (units (u nknown) date) sepsis due to unknown) unspecified organism Sepsis acute organ dysfunction (unknown) (no (unknown) (unknown) Sepsis (units (unkno wn) date) unknown) (unknown) (no (unknown) (unknown) Septic Shock (units (u nknown) date) Criteria unknown) (unknown) (no (unknown) (unknown) Septic Shock (units (u nknown) date) Determination. the unknown) patient has been screened and (unknown) (no (unknown) (unknown) Severe Sepsis (units ( unknown) date) Criteria unknown) (unknown) (no (unknown) (unknown) Severe Sepsis (units ( unknown) date) Determination. the unknown) patient has been screened and (unknown) (no (unknown) (unknown) Signed By: (units (unk nown) date) unknown) (unknown) (no (unknown) (unknown) Sinus tachycardia (units (unknown) date) at a rate of 116 unknown) (unknown) (no (unknown) (unknown) Skin: Pale but (units (unknown) date) otherwise Warm and unknown) dry, no rashes (unknown) (no (unknown) (unknown) Smoking Status: (units (unknown) date) Never smoker unknown) (unknown) (no (unknown) (unknown) Social History (units (unknown) date) (Reviewed 01/31/22 unknown) @ 21:45 by Kyleigh Castellanos MD) (unknown) (no (unknown) (unknown) Sodium (137-145) (units (unknown) date) mmol/L unknown) (unknown) (no (unknown) (unknown) Sodium 135 L (units (u nknown) date) (137-145) mmol/L unknown) (unknown) (no (unknown) (unknown) Sodium Chloride (units (unknown) date) (Normal Saline unknown) 0.9%) 2,762.37 mls @ 920.79 mls/hr 30 ml/kg (unknown) (no (unknown) (unknown) Spleen:? (units (unkno wn) date) Unremarkable.? ? unknown) (unknown) (no (unknown) (unknown) Stated complaint: (units (unknown) date) Vomiting, Stomach unknown) cramps, SOB (unknown) (no (unknown) (unknown) Stomach and (units (un known) date) Bowel:? Stomach, unknown) small bowel loops, and colon are unremarkable.? (unknown) (no (unknown) (unknown) Stop: 01/31/22 (units (unknown) date) 20:06 unknown) (unknown) (no (unknown) (unknown) Stop: 01/31/22 (units (unknown) date) 21:04 unknown) (unknown) (no (unknown) (unknown) Stop: 01/31/22 (units (unknown) date) 21:42 unknown) (unknown) (no (unknown) (unknown) Stop: 01/31/22 (units (unknown) date) 22:13 unknown) (unknown) (no (unknown) (unknown) Stop: 01/31/22 (units (unknown) date) 22:50 unknown) (unknown) (no (unknown) (unknown) Stop: 01/31/22 (units (unknown) date) 23:01 unknown) (unknown) (no (unknown) (unknown) Stop: 02/01/22 (units (unknown) date) 04:48 unknown) (unknown) (no (unknown) (unknown) Substance Use (units ( unknown) date) Type: does not use unknown) (unknown) (no (unknown) (unknown) Subtle lateral ST (units (unknown) date) depression unknown) (unknown) (no (unknown) (unknown) Surgical changes (units (unknown) date) and devices:? unknown) None.? (unknown) (no (unknown) (unknown) Temperature 98.3 F (units (unknown) date) 01/31/22 19:06 unknown) (unknown) (no (unknown) (unknown) Temperature 98.3 F (units (unknown) date) unknown) (unknown) (no (unknown) (unknown) Temperature (units (un known) date) unknown) (unknown) (no (unknown) (unknown) The left (units (unkno wn) date) unknown) (unknown) (no (unknown) (unknown) Time Seen by (units (u nknown) date) Provider: 01/31/22 unknown) 19:43 (unknown) (no (unknown) (unknown) Time Septic Shock (units (unknown) date) diagnosed: [ ] unknown) (unknown) (no (unknown) (unknown) Total Bilirubin (units (unknown) date) (0.2-1.3) mg/dL unknown) (unknown) (no (unknown) (unknown) Total Bilirubin (units (unknown) date) 2.2 H (0.2-1.3) unknown) mg/dL (unknown) (no (unknown) (unknown) Total Counted 100 (units (unknown) date) unknown) (unknown) (no (unknown) (unknown) Total Counted (units ( unknown) date) unknown) (unknown) (no (unknown) (unknown) Total Creatine (units (unknown) date) Kinase (55-170) U/L unknown) (unknown) (no (unknown) (unknown) Total Creatine (units (unknown) date) Kinase 59 (55-170) unknown) U/L (unknown) (no (unknown) (unknown) Total Protein (units ( unknown) date) (6.3-8.2) g/dL unknown) (unknown) (no (unknown) (unknown) Total Protein 7.6 (units (unknown) date) (6.3-8.2) g/dL unknown) (unknown) (no (unknown) (unknown) Trop I [Troponin (units (unknown) date) I] Stat unknown) (unknown) (no (unknown) (unknown) Troponin + CK (units ( unknown) date) Cardiac Panel Stat unknown) (unknown) (no (unknown) (unknown) Troponin I (units (unk nown) date) (0.01-0.034) ng/mL unknown) (unknown) (no (unknown) (unknown) Troponin I 0.608 (units (unknown) date) H* (0.01-0.034) unknown) ng/mL (unknown) (no (unknown) (unknown) Troponin I 0.924 (units (unknown) date) H* (0.01-0.034) unknown) ng/mL (unknown) (no (unknown) (unknown) Troponin is (units (un known) date) elevated at 0.9-4. unknown) Priors are not available. He does not have a (unknown) (no (unknown) (unknown) Type 2 diabetes (units (unknown) date) mellitus unknown) (unknown) (no (unknown) (unknown) Ur Culture (units (unk nown) date) Indicated? Specimen unknown) cultured (unknown) (no (unknown) (unknown) Ur Culture (units (unk nown) date) Indicated? unknown) (unknown) (no (unknown) (unknown) Ur Leukocyte (units (u nknown) date) Esterase (NEGATIVE) unknown) (unknown) (no (unknown) (unknown) Ur Leukocyte (units (u nknown) date) Esterase 2+ H unknown) (NEGATIVE) (unknown) (no (unknown) (unknown) Ur Specific (units (un known) date) [place] unknown) (1.000-1.035) (unknown) (no (unknown) (unknown) Ur Specific (units (un known) date) [place] 1.010 unknown) (1.000-1.035) (unknown) (no (unknown) (unknown) Ur Squamous Epith (units (unknown) date) Cells (0-5/HPF) unknown) (unknown) (no (unknown) (unknown) Ur Squamous Epith (units (unknown) date) Cells None seen unknown) (0-5/HPF) (unknown) (no (unknown) (unknown) Urinalysis and (units (unknown) date) Microscopic Stat unknown) (unknown) (no (unknown) (unknown) Urine Appearance (units (unknown) date) Sl cloudy unknown) (unknown) (no (unknown) (unknown) Urine Appearance (units (unknown) date) unknown) (unknown) (no (unknown) (unknown) Urine Bacteria (units (unknown) date) (None) unknown) (unknown) (no (unknown) (unknown) Urine Bacteria (units (unknown) date) Many (>30) H (None) unknown) (unknown) (no (unknown) (unknown) Urine Bilirubin (units (unknown) date) (NEGATIVE) unknown) (unknown) (no (unknown) (unknown) Urine Bilirubin (units (unknown) date) Negative (NEGATIVE) unknown) (unknown) (no (unknown) (unknown) Urine Color Yellow (units (unknown) date) unknown) (unknown) (no (unknown) (unknown) Urine Color (units (un known) date) unknown) (unknown) (no (unknown) (unknown) Urine Culture Stat (units (unknown) date) unknown) (unknown) (no (unknown) (unknown) Urine Dip (units (unkn own) date) unknown) (unknown) (no (unknown) (unknown) Urine Glucose (UA) (units (unknown) date) (Negative) g/dL unknown) (unknown) (no (unknown) (unknown) Urine Glucose (UA) (units (unknown) date) Negative (Negative) unknown) g/dL (unknown) (no (unknown) (unknown) Urine Ketones (units ( unknown) date) (NEGATIVE) unknown) (unknown) (no (unknown) (unknown) Urine Ketones (units ( unknown) date) Negative (NEGATIVE) unknown) (unknown) (no (unknown) (unknown) Urine Nitrate (units ( unknown) date) (Negative) unknown) (unknown) (no (unknown) (unknown) Urine Nitrate (units ( unknown) date) Negative (Negative) unknown) (unknown) (no (unknown) (unknown) Urine Occult Blood (units (unknown) date) (Negative) unknown) (unknown) (no (unknown) (unknown) Urine Occult Blood (units (unknown) date) 1+ H (Negative) unknown) (unknown) (no (unknown) (unknown) Urine Protein (units ( unknown) date) (Negative) unknown) (unknown) (no (unknown) (unknown) Urine Protein 1+ H (units (unknown) date) (Negative) unknown) (unknown) (no (unknown) (unknown) Urine RBC (units (unkn own) date) (0-5/HPF) unknown) (unknown) (no (unknown) (unknown) Urine RBC 0-1/hpf (units (unknown) date) (0-5/HPF) unknown) (unknown) (no (unknown) (unknown) Urine Specific (units (unknown) date) [place] 1.02 unknown) (unknown) (no (unknown) (unknown) Urine Urobilinogen (units (unknown) date) (0.2) E.U./dL unknown) (unknown) (no (unknown) (unknown) Urine Urobilinogen (units (unknown) date) 0.2 (0.2) E.U./dL unknown) (unknown) (no (unknown) (unknown) Urine WBC (units (unkn own) date) (0-5/HPF) unknown) (unknown) (no (unknown) (unknown) Urine WBC (units (unkn own) date) 30-100/hpf H unknown) (0-5/HPF) (unknown) (no (unknown) (unknown) Urine pH (4.5-8.0) (units (unknown) date) unknown) (unknown) (no (unknown) (unknown) Urine pH 5.0 (units (u nknown) date) (4.5-8.0) unknown) (unknown) (no (unknown) (unknown) Ventral Wall: ? No (units (unknown) date) hernias.? unknown) (unknown) (no (unknown) (unknown) Vessels:? Aorta (units (unknown) date) and inferior vena unknown) cava are normal in size.? (unknown) (no (unknown) (unknown) Vital Signs - 8 hr (units (unknown) date) unknown) (unknown) (no (unknown) (unknown) Vital Signs (units (un known) date) unknown) (unknown) (no (unknown) (unknown) Vital signs: (units (u nknown) date) unknown) (unknown) (no (unknown) (unknown) WBC (4.5-11.0) (units (unknown) date) X103/uL unknown) (unknown) (no (unknown) (unknown) WBC 29.1 H (units (unk nown) date) (4.5-11.0) X103/uL unknown) (unknown) (no (unknown) (unknown) Was initially (units ( unknown) date) hypertensive is unknown) significantly tachycardic. Ultrasound for central (unknown) (no (unknown) (unknown) Within 3 hours (units (unknown) date) unknown) (unknown) (no (unknown) (unknown) Within 6 hours (if (units (unknown) date) continued unknown) hypotension after fluids or initial lactate >4) (unknown) (no (unknown) (unknown) XR chest 2V Stat (units (unknown) date) unknown) (unknown) (no (unknown) (unknown) [ ] 2 SIRS (units (unk nown) date) Criteria met unknown) (unknown) (no (unknown) (unknown) [ ] 30ml/kg fluid (units (unknown) date) unknown) (unknown) (no (unknown) (unknown) [ ] ABW used (units (u nknown) date) unknown) (unknown) (no (unknown) (unknown) [ ] BP < 90 or MAP (units (unknown) date) <65, >40mm decrease unknown) from normal baseline (unknown) (no (unknown) (unknown) [ ] Creat > 2.0 (units (unknown) date) unknown) (unknown) (no (unknown) (unknown) [ ] DOES NOT meet (units (unknown) date) criteria for septic unknown) shock (unknown) (no (unknown) (unknown) [ ] DOES NOT meet (units (unknown) date) criteria for severe unknown) sepsis (unknown) (no (unknown) (unknown) [ ] DOES meet (units ( unknown) date) criteria for septic unknown) shock (unknown) (no (unknown) (unknown) [ ] Evidence of at (units (unknown) date) least 1 organ unknown) system dysfunction (unknown) (no (unknown) (unknown) [ ] IBW (33.6) (units (unknown) date) used due to BMI > unknown) 30 (unknown) (no (unknown) (unknown) [ ] Initiate (units (u nknown) date) vasopressor therapy unknown) if persistent hypotension after adequate fluid (unknown) (no (unknown) (unknown) [ ] RR >20 (units (unk nown) date) unknown) (unknown) (no (unknown) (unknown) [ ] SBP ,90 or MAP (units (unknown) date) , 65 unknown) (unknown) (no (unknown) (unknown) [ ] altered mental (units (unknown) date) status unknown) (unknown) (no (unknown) (unknown) [ ] documentation (units (unknown) date) of septic shock unknown) (unknown) (no (unknown) (unknown) [ ] lactic > 4 at (units (unknown) date) any time unknown) (unknown) (no (unknown) (unknown) [ ] lactic redrawn (units (unknown) date) within 6 hours if unknown) >2.0 (unknown) (no (unknown) (unknown) [ ] mechanical (units (unknown) date) ventilation unknown) (unknown) (no (unknown) (unknown) [ ] patient or (units (unknown) date) advocate declining unknown) fluid administration after shared decision (unknown) (no (unknown) (unknown) [ ] platelet count (units (unknown) date) < 100k unknown) (unknown) (no (unknown) (unknown) [ ] provider (units (u nknown) date) documentation of unknown) severe sepsis (unknown) (no (unknown) (unknown) [ ] repeat volume (units (unknown) date) status and tissue unknown) perfusion assessment documented after fluid (unknown) (no (unknown) (unknown) [ x ] DOES meet (units (unknown) date) criteria for severe unknown) sepsis (unknown) (no (unknown) (unknown) [ x ] Lactate > 2 (units (unknown) date) unknown) (unknown) (no (unknown) (unknown) [ x ] broad (units (un known) date) spectrum abx unknown) started (unknown) (no (unknown) (unknown) [ x ] fever or (units (unknown) date) hypothermia unknown) (unknown) (no (unknown) (unknown) [ x ] lactic acid (units (unknown) date) level checked unknown) (unknown) (no (unknown) (unknown) [ x ] (units (unkno wn) date) leukocytosis/leukop unknown) enia/bandemia (unknown) (no (unknown) (unknown) [ x] HR >90 (units (un known) date) unknown) (unknown) (no (unknown) (unknown) [Embedded Image (units (unknown) date) Not Available] unknown) (unknown) (no (unknown) (unknown) [x ] T. Bili > 2.0 (units (unknown) date) unknown) (unknown) (no (unknown) (unknown) [x ] bacterial (units (unknown) date) source of infection unknown) suspected and documented (unknown) (no (unknown) (unknown) [x ] blood cx (units ( unknown) date) drawn prior to abx unknown) (unknown) (no (unknown) (unknown) a incontinence (units (unknown) date) pad. He has not unknown) been having any diarrhea or constipation. He (unknown) (no (unknown) (unknown) a slight (units (unkno wn) date) unknown) (unknown) (no (unknown) (unknown) account. (units (unkno wn) date) unknown) (unknown) (no (unknown) (unknown) acute renal (units (un known) date) failure Acute renal unknown) failure type: unspecified Severe sepsis shock (unknown) (no (unknown) (unknown) administered. His (units (unknown) date) abdominal pain is unknown) significantly improved. He is still (unknown) (no (unknown) (unknown) alcohol intake (units (unknown) date) frequency: unknown) holidays/special occasions only (unknown) (no (unknown) (unknown) alcohol intake: (units (unknown) date) current unknown) (unknown) (no (unknown) (unknown) amlodipine 10 mg (units (unknown) date) tablet 10 mg PO unknown) DAILY 01/27/18 07/13/19 (unknown) (no (unknown) (unknown) amlodipine 10 mg (units (unknown) date) tablet unknown) (unknown) (no (unknown) (unknown) and normotensive (units (unknown) date) with oxygen unknown) saturations 99% on room air. (unknown) (no (unknown) (unknown) any significant (units (unknown) date) cough, chest pain, unknown) palpitations, lower extremity edema. He (unknown) (no (unknown) (unknown) appendicitis. (units ( unknown) date) unknown) (unknown) (no (unknown) (unknown) appropriate (units (un known) date) sedation. No unknown) significant debris or edema coming up the ET tube. (unknown) (no (unknown) (unknown) asymmetries or (units (unknown) date) abnormalities unknown) (unknown) (no (unknown) (unknown) been significantly (units (unknown) date) fatigued but is unknown) otherwise cognitively intact. (unknown) (no (unknown) (unknown) began with (units (unk nown) date) ceftriaxone and unknown) Flagyl thinking that this was a GI source. (unknown) (no (unknown) (unknown) bolus was (units (unkn own) date) completed at unknown) [Date/Time] (unknown) (no (unknown) (unknown) bolus (units (unkno wn) date) unknown) (unknown) (no (unknown) (unknown) by the bladder (units (unknown) date) outlet obstruction unknown) and chronic urinary retention. (unknown) (no (unknown) (unknown) capillary refill (units (unknown) date) and no evidence of unknown) hypotension. Findings and concerns are (unknown) (no (unknown) (unknown) chlorthalidone 50 (units (unknown) date) mg tablet 50 mg PO unknown) DAILY 01/27/18 07/13/19 (unknown) (no (unknown) (unknown) chlorthalidone 50 (units (unknown) date) mg tablet unknown) (unknown) (no (unknown) (unknown) collecting (units (unk nown) date) unknown) (unknown) (no (unknown) (unknown) degree Mya renal (units (unknown) date) edema.? A urinary unknown) tract stone, is not seen on the left. (unknown) (no (unknown) (unknown) exenatide (units (unkn own) date) microspheres 2 unknown) mg/0.85 2 mg SUBCUT QWEEK 07/05/19 07/13/19 (unknown) (no (unknown) (unknown) failure. Current (units (unknown) date) access is 2 20 unknown) gauge peripheral IVs (unknown) (no (unknown) (unknown) fatigue, overall (units (unknown) date) altered mental unknown) status, increasing abdominal pain. He denies (unknown) (no (unknown) (unknown) fenofibrate (units (un known) date) nanocrystallized unknown) 145 145 mg PO DAILY 07/05/19 07/13/19 (unknown) (no (unknown) (unknown) fenofibrate (units (un known) date) nanocrystallized unknown) 145 mg tablet (unknown) (no (unknown) (unknown) for such. He is (units (unknown) date) not complaining of unknown) chest pain. Will repeat. (unknown) (no (unknown) (unknown) has been passing (units (unknown) date) gas. Reports no unknown) significant headache. They report that he has (unknown) (no (unknown) (unknown) history of known (units (unknown) date) coronary disease unknown) but does have a all appropriate risk factors (unknown) (no (unknown) (unknown) household members: (units (unknown) date) spouse unknown) (unknown) (no (unknown) (unknown) hydronephrosis or (units (unknown) date) unknown) (unknown) (no (unknown) (unknown) hyperlipidemia, (units (unknown) date) prior kidney stones unknown) presents with 12 hours of increasing fevers, (unknown) (no (unknown) (unknown) infuse over 3 hr (units (unknown) date) (2762.37 ml) IV NOW unknown) ONE (unknown) (no (unknown) (unknown) insulin glargine (units (unknown) date) 100 unit/mL (3 26 unknown) units SUBCUT DAILY 01/27/18 07/13/19 (unknown) (no (unknown) (unknown) insulin glargine (units (unknown) date) 100 unit/mL (3 mL) unknown) insulin pen (unknown) (no (unknown) (unknown) is placed. Urine (units (unknown) date) does look acutely unknown) infected. (unknown) (no (unknown) (unknown) kidney demonstrates (units (unknown) date) slight prominence unknown) of the central renal collecting system and (unknown) (no (unknown) (unknown) levofloxacin [From (units (unknown) date) Levaquin] Allergy unknown) Rash Verified 01/31/22 19:12 (unknown) (no (unknown) (unknown) line placement (units (unknown) date) shows no evidence unknown) of volume depletion. He is given 5 mg of IV (unknown) (no (unknown) (unknown) looks like a (units (u nknown) date) urinary tract unknown) infection. In the setting of acute urinary (unknown) (no (unknown) (unknown) losartan 100 mg (units (unknown) date) tablet 100 mg PO unknown) DAILY 01/27/18 07/13/19 (unknown) (no (unknown) (unknown) losartan 100 mg (units (unknown) date) tablet unknown) (unknown) (no (unknown) (unknown) mL subcutaneous (units (unknown) date) auto-injector unknown) (unknown) (no (unknown) (unknown) mL) subcutaneous (units (unknown) date) pen unknown) (unknown) (no (unknown) (unknown) making (units (unkno wn) date) conversation unknown) (unknown) (no (unknown) (unknown) metformin 500 mg (units (unknown) date) tablet 500 mg PO unknown) BID 01/27/18 07/13/19 (unknown) (no (unknown) (unknown) metformin 500 mg (units (unknown) date) tablet unknown) (unknown) (no (unknown) (unknown) metoprolol with (units (unknown) date) his rate coming unknown) down from a sinus tach in the 160 range to the (unknown) (no (unknown) (unknown) mg tablet (units (unkn own) date) unknown) (unknown) (no (unknown) (unknown) minor prominence (units (unknown) date) of the renal unknown) collecting system on the left without obvious (unknown) (no (unknown) (unknown) mondays (units (unkno wn) date) unknown) (unknown) (no (unknown) (unknown) no flank pain (units ( unknown) date) unknown) (unknown) (no (unknown) (unknown) not (units (unkno wn) date) unknown) (unknown) (no (unknown) (unknown) of oxygen. Given (units (unknown) date) Reglan. With unknown) prolonged QT I do not want to use Zofran. (unknown) (no (unknown) (unknown) organism (units (unkno wn) date) unknown) (unknown) (no (unknown) (unknown) oxycodone 5 mg (units (unknown) date) capsule 5 mg PO Q4H unknown) PRN pain #14 caps 07/13/19 (unknown) (no (unknown) (unknown) oxycodone 5 mg (units (unknown) date) capsule unknown) (unknown) (no (unknown) (unknown) pain for further (units (unknown) date) evaluation. unknown) Tachycardic, tachypneic, afebrile on presentation (unknown) (no (unknown) (unknown) peripheral pulse (units (unknown) date) evaluation, skin unknown) exam (unknown) (no (unknown) (unknown) pigtail right (units ( unknown) date) ureteral stent unknown) without hydronephrosis or hydroureter. Urine (unknown) (no (unknown) (unknown) pigtail (units (unkno wn) date) unknown) (unknown) (no (unknown) (unknown) prior to (units (unkno wn) date) determining acuity unknown) of hospital needs for admission. (unknown) (no (unknown) (unknown) retained (units (unkno wn) date) calculus.? On the unknown) left there is mild prominence of the central renal (unknown) (no (unknown) (unknown) retention, pigtail (units (unknown) date) catheter still in unknown) place and mild prominence of the collecting (unknown) (no (unknown) (unknown) reviewed with the (units (unknown) date) patient and his unknown) daughter. Will wait to see repeat troponin (unknown) (no (unknown) (unknown) right ureteral (units (unknown) date) stent.? There is no unknown) right-sided hydronephrosis or hydroureter.? (unknown) (no (unknown) (unknown) rosuvastatin 40 mg (units (unknown) date) tablet 40 mg PO unknown) DAILY 07/05/19 07/13/19 (unknown) (no (unknown) (unknown) rosuvastatin 40 mg (units (unknown) date) tablet unknown) (unknown) (no (unknown) (unknown) sample is obtained (units (unknown) date) and 1725 cc of unknown) urine are initially drained. Ramírez catheter (unknown) (no (unknown) (unknown) saturations are (units (unknown) date) dropping slightly unknown) 87% with a good waveform. He started on 2 L (unknown) (no (unknown) (unknown) saturations. (units (u nknown) date) Patient is moved to unknown) room 1 intubated with central line placed. (unknown) (no (unknown) (unknown) seen. (units (unkno wn) date) unknown) (unknown) (no (unknown) (unknown) showing signs of (units (unknown) date) good peripheral unknown) perfusion with warm extremities with good (unknown) (no (unknown) (unknown) signs of (units (unkno wn) date) obstruction. unknown) (unknown) (no (unknown) (unknown) states that he is (units (unknown) date) able to void but it unknown) is only intervals and he frequently wears (unknown) (no (unknown) (unknown) status: with acute (units (unknown) date) organ dysfunction unknown) Severe sepsis acute organ dysfunction type: (unknown) (no (unknown) (unknown) status: without (units (unknown) date) septic shock unknown) Qualified Code(s): A41.9 - Sepsis, unspecified (unknown) (no (unknown) (unknown) system but an (units (u nknown) date) obstructive urinary unknown) tract stone more distally within the ureter is (unknown) (no (unknown) (unknown) system on the (units ( unknown) date) right without unknown) evidence of stone urology will be consult today. (unknown) (no (unknown) (unknown) taken into (units (unk nown) date) unknown) (unknown) (no (unknown) (unknown) tamsulosin 0.4 mg (units (unknown) date) capsule 0.4 mg PO unknown) DAILY #60 caps 07/13/19 (unknown) (no (unknown) (unknown) tamsulosin 0.4 mg (units (unknown) date) capsule unknown) (unknown) (no (unknown) (unknown) that included in (units (unknown) date) the HPI. unknown) (unknown) (no (unknown) (unknown) to direct (units (unkn own) date) questions unknown) (unknown) (no (unknown) (unknown) unremarkable.? (units (unknown) date) unknown) Result panel 18 (unknown) (no (unknown) (unknown) (no value) (units (unk nown) date) unknown) (unknown) (no (unknown) (unknown) 01/31/22 (units (unkno wn) date) unknown) (unknown) (no (unknown) (unknown) [address] [place] [address] (units (unknown) date) unknown) (unknown) (no (unknown) (unknown) Abdomen: (units (unkno wn) date) Visualized upper unknown) abdominal solid organs appear normal in the early (unknown) (no (unknown) (unknown) Accession Number: (units (unknown) date) [id number] unknown) (unknown) (no (unknown) (unknown) After the (units (unkn own) date) administration of unknown) intravenous contrast, 2 mm thick sections acquired (unknown) (no (unknown) (unknown) Age/Sex: 71 / M (units (unknown) date) Date of Service: unknown) (unknown) (no (unknown) (unknown) ROSARIO Mathias (units ( unknown) date) [id number] unknown) (unknown) (no (unknown) (unknown) Approved by: (units (u nknown) date) paola Andino M.D. on 02/01/2022 at 0:06 (unknown) (no (unknown) (unknown) Bones and chest (units (unknown) date) wall: No unknown) suspicious bony lesions. Ribs and thoracic spine (unknown) (no (unknown) (unknown) COMPARISON: (units (un known) date) [facility], unknown) CR, XR CHEST 1V, 01/31/2022, 22:46. War (unknown) (no (unknown) (unknown) CT Scan Report (units (unknown) date) unknown) (unknown) (no (unknown) (unknown) : 1950 (units (unknown) date) Acct:[id number] unknown) (unknown) (no (unknown) (unknown) Dictated by: (units (u nknown) date) Dwayne Meadows unknownSachin Vera on 02/01/2022 at 0:04 (unknown) (no (unknown) (unknown) Esophagus is (units (u nknown) date) unknown) (unknown) (no (unknown) (unknown) FINDINGS: (units (unkn own) date) unknown) (unknown) (no (unknown) (unknown) For radiation (units ( unknown) date) dose reduction, unknown) the following was used: automated exposure (unknown) (no (unknown) (unknown) Hospital, CR, (units ( unknown) date) unknown) (unknown) (no (unknown) (unknown) IMPRESSION: No (units (unknown) date) pulmonary embolus unknown) found. Dense alveolar consolidation within (unknown) (no (unknown) (unknown) INDICATIONS: (units (u nknown) date) concern for PE and unknown) acute respiratory failure and intubation (unknown) (no (unknown) (unknown) Image quality: (units (unknown) date) Excellent. unknown) (unknown) (no (unknown) (unknown) [facility] (units (unknown) date) unknown) (unknown) (no (unknown) (unknown) Loc: ICU 228-1 (units (unknown) date) unknown) (unknown) (no (unknown) (unknown) Lungs and pleura: (units (unknown) date) Lungs are abnormal unknown) with bilateral dense pneumonia or (unknown) (no (unknown) (unknown) [id number] (units (unk nown) date) unknown) (unknown) (no (unknown) (unknown) Mediastinum: (units (u nknown) date) Heart size is unknown) normal, without pericardial effusion. No (unknown) (no (unknown) (unknown) Ordering (units (unkno wn) date) Provider: unknown) Kyleigh Castellanos MD (unknown) (no (unknown) (unknown) PROCEDURE: CT (units ( unknown) date) ANGIO CHEST PE unknown) PROTOCOL (unknown) (no (unknown) (unknown) Patient: (units (unkno wn) date) Pascual Padilla unknown) MR#: (unknown) (no (unknown) (unknown) Procedure: CT (units ( unknown) date) angio chest PE unknown) protocol (unknown) (no (unknown) (unknown) Pulmonary (units (unkn own) date) arteries: unknown) Pulmonary arteries are normal in size, and demonstrate no (unknown) (no (unknown) (unknown) Signed (units (unkno wn) date) unknown) (unknown) (no (unknown) (unknown) TECHNIQUE: (units (unk nown) date) unknown) (unknown) (no (unknown) (unknown) XR CHEST 2V, (units (u nknown) date) 01/31/2022, 19:27. unknown) (unknown) (no (unknown) (unknown) adjustment of mA (units (unknown) date) and/or kV unknown) according to patient size. (unknown) (no (unknown) (unknown) airways are (units (un known) date) unknown) (unknown) (no (unknown) (unknown) appear intact (units ( unknown) date) unknown) (unknown) (no (unknown) (unknown) arterial (units (unkno wn) date) unknown) (unknown) (no (unknown) (unknown) aspiration as (units ( unknown) date) unknown) (unknown) (no (unknown) (unknown) aspiration (units (unk nown) date) unknown) (unknown) (no (unknown) (unknown) consolidation. No (units (unknown) date) pleural effusions unknown) or pneumothorax. Central and peripheral (unknown) (no (unknown) (unknown) control, (units (unkno wn) date) unknown) (unknown) (no (unknown) (unknown) day that (units (unkno wn) date) unknown) (unknown) (no (unknown) (unknown) from the (units (unkno wn) date) unknown) (unknown) (no (unknown) (unknown) had appeared free (units (unknown) date) of such unknown) infiltrations. This implies a high likelihood of (unknown) (no (unknown) (unknown) hilar adenopathy. (units (unknown) date) Thoracic aorta is unknown) normal in caliber and enhancement. (unknown) (no (unknown) (unknown) intensity (units (unkn own) date) unknown) (unknown) (no (unknown) (unknown) intraluminal (units (u nknown) date) filling defects to unknown) suggest central pulmonary embolism. (unknown) (no (unknown) (unknown) mediastinal or (units (unknown) date) unknown) (unknown) (no (unknown) (unknown) normal in (units (unkn own) date) caliber, without unknown) hiatal hernia. (unknown) (no (unknown) (unknown) patent. (units (unkno wn) date) unknown) (unknown) (no (unknown) (unknown) phase of (units (unkno wn) date) enhancement. unknown) (unknown) (no (unknown) (unknown) posterior lungs (units (unknown) date) bilaterally in unknown) this patient with chest plain film earlier same (unknown) (no (unknown) (unknown) projection (MIP) (units (unknown) date) coronal and unknown) sagittal reformats were then acquired through the (unknown) (no (unknown) (unknown) pulmonary apices (units (unknown) date) to the posterior unknown) costophrenic angles. 3-dimensional maximum (unknown) (no (unknown) (unknown) supraclavicular (units (unknown) date) adenopathy. unknown) (unknown) (no (unknown) (unknown) the underlying (units (unknown) date) cause. unknown) (unknown) (no (unknown) (unknown) the (units (unkno wn) date) unknown) (unknown) (no (unknown) (unknown) thorax. (units (unkno wn) date) unknown) (unknown) (no (unknown) (unknown) throughout. (units (un known) date) Thyroid gland unknown) appears normal where well seen. No axillary or Result panel 19 (unknown) (no (unknown) (unknown) (no value) (units (unk nown) date) unknown) (unknown) (no (unknown) (unknown) (Bydureon BCise) (units (unknown) date) unknown) (unknown) (no (unknown) (unknown) 0.4 mg PO DAILY (units (unknown) date) Qty: 60 0RF unknown) (unknown) (no (unknown) (unknown) 10 mg PO DAILY (units (unknown) date) unknown) (unknown) (no (unknown) (unknown) 01/31/22 01/31/22 (units (unknown) date) 01/31/22 unknown) Range/Units (unknown) (no (unknown) (unknown) 01/31/22 19:24 (units (unknown) date) unknown) (unknown) (no (unknown) (unknown) 01/31/22 20:00 (units (unknown) date) unknown) (unknown) (no (unknown) (unknown) 01/31/22 20:02 (units (unknown) date) unknown) (unknown) (no (unknown) (unknown) 01/31/22 20:03 (units (unknown) date) unknown) (unknown) (no (unknown) (unknown) 01/31/22 20:14 (units (unknown) date) unknown) (unknown) (no (unknown) (unknown) 01/31/22 20:28 (units (unknown) date) unknown) (unknown) (no (unknown) (unknown) 01/31/22 22:13 (units (unknown) date) unknown) (unknown) (no (unknown) (unknown) 01/31/22 22:31 (units (unknown) date) unknown) (unknown) (no (unknown) (unknown) 01/31/22 (units (unkno wn) date) unknown) (unknown) (no (unknown) (unknown) 100 mg PO DAILY (units (unknown) date) unknown) (unknown) (no (unknown) (unknown) 1000pm patient is (units (unknown) date) re-evaluated. He is unknown) having fever and rigors and Tylenol as (unknown) (no (unknown) (unknown) 1015pm patient is (units (unknown) date) having an episode unknown) of emesis. Currently afebrile. Oxygen (unknown) (no (unknown) (unknown) 1055 Acute (units (unk nown) date) deterioration with unknown) severe respiratory strip distress, dropping (unknown) (no (unknown) (unknown) 130 range. Blood (units (unknown) date) pressure was unknown) initially 200/110 and is now down to 125/30 with (unknown) (no (unknown) (unknown) 145 mg PO DAILY (units (unknown) date) unknown) (unknown) (no (unknown) (unknown) 19:06 01/31/22 (units (unknown) date) unknown) (unknown) (no (unknown) (unknown) 19:19 01/31/22 (units (unknown) date) unknown) (unknown) (no (unknown) (unknown) 19:20 01/31/22 (units (unknown) date) unknown) (unknown) (no (unknown) (unknown) 19:20 (units (unkno wn) date) unknown) (unknown) (no (unknown) (unknown) 19:30 01/31/22 (units (unknown) date) unknown) (unknown) (no (unknown) (unknown) 19:30 (units (unkno wn) date) unknown) (unknown) (no (unknown) (unknown) 2 mg SUBCUT QWEEK (units (unknown) date) unknown) (unknown) (no (unknown) (unknown) 20:00 01/31/22 (units (unknown) date) unknown) (unknown) (no (unknown) (unknown) 20:00 20:00 20:00 (units (unknown) date) unknown) (unknown) (no (unknown) (unknown) 20:14 22:13 22:13 (units (unknown) date) unknown) (unknown) (no (unknown) (unknown) 20:30 01/31/22 (units (unknown) date) unknown) (unknown) (no (unknown) (unknown) 20:30 (units (unkno wn) date) unknown) (unknown) (no (unknown) (unknown) 20:45 01/31/22 (units (unknown) date) unknown) (unknown) (no (unknown) (unknown) 21:07 (units (unkno wn) date) unknown) (unknown) (no (unknown) (unknown) 21:11 01/31/22 (units (unknown) date) unknown) (unknown) (no (unknown) (unknown) 21:15 01/31/22 (units (unknown) date) unknown) (unknown) (no (unknown) (unknown) 21:30 01/31/22 (units (unknown) date) unknown) (unknown) (no (unknown) (unknown) 21:30 (units (unkno wn) date) unknown) (unknown) (no (unknown) (unknown) 21:46 01/31/22 (units (unknown) date) unknown) (unknown) (no (unknown) (unknown) 21:46 (units (unkno wn) date) unknown) (unknown) (no (unknown) (unknown) 22:00 01/31/22 (units (unknown) date) unknown) (unknown) (no (unknown) (unknown) 22:05 (units (unkno wn) date) unknown) (unknown) (no (unknown) (unknown) 22:15 (units (unkno wn) date) unknown) (unknown) (no (unknown) (unknown) 26 units subcut (units (unknown) date) DAILY unknown) (unknown) (no (unknown) (unknown) 30 particular was (units (unknown) date) initiated. He is unknown) allergic to penicillin so rather than Zosyn (unknown) (no (unknown) (unknown) 40 mg PO DAILY (units (unknown) date) unknown) (unknown) (no (unknown) (unknown) 5 mg PO Q4H PRN (units (unknown) date) (Reason: pain) Qty: unknown) 14 0RF (unknown) (no (unknown) (unknown) 50 mg PO DAILY (units (unknown) date) unknown) (unknown) (no (unknown) (unknown) 500 mg PO BID (units ( unknown) date) unknown) (unknown) (no (unknown) (unknown) 71-year-old (units (un known) date) gentleman presents unknown) acutely ill, febrile pale with severe abdominal (unknown) (no (unknown) (unknown) 71-year-old (units (un known) date) gentleman with unknown) history of hypertension, type 2 diabetes, (unknown) (no (unknown) (unknown) ? 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 (unknown) (no (unknown) (unknown) ABDOMEN: (units (unkno wn) date) unknown) (unknown) (no (unknown) (unknown) ALT (<50) IU/L (units (unknown) date) unknown) (unknown) (no (unknown) (unknown) ALT 16 (<50) IU/L (units (unknown) date) unknown) (unknown) (no (unknown) (unknown) APTT (26-36) (units (u nknown) date) SECONDS unknown) (unknown) (no (unknown) (unknown) APTT 31 (26-36) (units (unknown) date) SECONDS unknown) (unknown) (no (unknown) (unknown) AST (17-59) IU/L (units (unknown) date) unknown) (unknown) (no (unknown) (unknown) AST 31 (17-59) (units (unknown) date) IU/L unknown) (unknown) (no (unknown) (unknown) Abdomen: Mild (units ( unknown) date) distention, diffuse unknown) abdominal pain without rebound or guarding, (unknown) (no (unknown) (unknown) Abdominal Nodes:? (units (unknown) date) No retroperitoneal unknown) or mesenteric adenopathy by size criteria.? (unknown) (no (unknown) (unknown) Acetaminophen (units ( unknown) date) (Acetaminophen 325 unknown) Mg Tablet) 975 mg PO NOW ONE (unknown) (no (unknown) (unknown) Acute kidney (units (u nknown) date) injury with unknown) creatinine increased from 1.3-1.6. Likely compounded (unknown) (no (unknown) (unknown) Acute (units (unkno wn) date) pyelonephritis, unknown) Benign prostatic hyperplasia, Acute urinary retention (unknown) (no (unknown) (unknown) Additional (units (unk nown) date) Information: unknown) (unknown) (no (unknown) (unknown) Admin: 01/31/22 (units (unknown) date) 20:13 Dose: 200 unknown) mls/hr (unknown) (no (unknown) (unknown) Adrenal Glands:? (units (unknown) date) Unremarkable.? ? unknown) (unknown) (no (unknown) (unknown) Age/Sex: 71 / M (units (unknown) date) unknown) (unknown) (no (unknown) (unknown) Albumin (3.5-5.0) (units (unknown) date) g/dL unknown) (unknown) (no (unknown) (unknown) Albumin 4.2 (units (un known) date) (3.5-5.0) g/dL unknown) (unknown) (no (unknown) (unknown) Albumin/Globulin (units (unknown) date) Ratio (1.0-2.8) unknown) (unknown) (no (unknown) (unknown) Albumin/Globulin (units (unknown) date) Ratio 1.2 (1.0-2.8) unknown) (unknown) (no (unknown) (unknown) Alkaline (units (unkno wn) date) Phosphatase unknown) (38-126) U/L (unknown) (no (unknown) (unknown) Alkaline (units (unkno wn) date) Phosphatase 66 unknown) (38-126) U/L (unknown) (no (unknown) (unknown) Allergies (units (unkn own) date) unknown) (unknown) (no (unknown) (unknown) Allergy/AdvReac (units (unknown) date) Type Severity unknown) Reaction Status Date / Time (unknown) (no (unknown) (unknown) Amiodarone HCl (units (unknown) date) (Amiodarone 150 unknown) Mg/3 Ml Vial) 300 mg IV NOW ONE (unknown) (no (unknown) (unknown) Amiodarone (units (unk nown) date) HCl/Dextrose unknown) (Nexterone) 360 mg in 200 mls @ 33.333 mls/hr IV NOW (unknown) (no (unknown) (unknown) Anisocytosis 1+ H (units (unknown) date) unknown) (unknown) (no (unknown) (unknown) Anisocytosis (units (u nknown) date) unknown) (unknown) (no (unknown) (unknown) 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, unknown) Ramírez catheter now in place (unknown) (no (unknown) (unknown) BUN (9-20) mg/dL (units (unknown) date) unknown) (unknown) (no (unknown) (unknown) BUN 22 H (9-20) (units (unknown) date) mg/dL unknown) (unknown) (no (unknown) (unknown) BUN/Creatinine (units (unknown) date) Ratio (6-22) unknown) (unknown) (no (unknown) (unknown) BUN/Creatinine (units (unknown) date) Ratio 13.8 (6-22) unknown) (unknown) (no (unknown) (unknown) Band Neutrophils % (units (unknown) date) (3-7) % unknown) (unknown) (no (unknown) (unknown) Band Neutrophils % (units (unknown) date) 12.0 H (3-7) % unknown) (unknown) (no (unknown) (unknown) Baso # (Auto) Not (units (unknown) date) Reportable unknown) (unknown) (no (unknown) (unknown) Baso # (Auto) (units ( unknown) date) unknown) (unknown) (no (unknown) (unknown) Baso % (Auto) Not (units (unknown) date) Reportable unknown) (unknown) (no (unknown) (unknown) Baso % (Auto) (units ( unknown) date) unknown) (unknown) (no (unknown) (unknown) Bedside Urine (units ( unknown) date) Bilirubin - unknown) Negative (unknown) (no (unknown) (unknown) Bedside Urine (units ( unknown) date) Glucose Negative unknown) (unknown) (no (unknown) (unknown) Bedside Urine (units ( unknown) date) Ketone - Negative unknown) (unknown) (no (unknown) (unknown) Bedside Urine (units ( unknown) date) Leukocytes + 70 unknown) (unknown) (no (unknown) (unknown) Bedside Urine (units ( unknown) date) Nitrite - Negative unknown) (unknown) (no (unknown) (unknown) Bedside Urine (units ( unknown) date) Occult Blood +/ unknown) (unknown) (no (unknown) (unknown) Bedside Urine (units ( unknown) date) Protein + 30 unknown) (unknown) (no (unknown) (unknown) Bedside Urine (units ( unknown) date) Urobilinogen - unknown) Negative (unknown) (no (unknown) (unknown) Bedside Urine pH 6 (units (unknown) date) unknown) (unknown) (no (unknown) (unknown) Biliary ducts:? (units (unknown) date) Unremarkable.? ? unknown) (unknown) (no (unknown) (unknown) Bladder:? (units (unkn own) date) Unremarkable.? ? unknown) (unknown) (no (unknown) (unknown) Blood Culture Stat (units (unknown) date) unknown) (unknown) (no (unknown) (unknown) Blood Pressure (units (unknown) date) 127/80 unknown) (unknown) (no (unknown) (unknown) Blood Pressure (units (unknown) date) 132/79 unknown) (unknown) (no (unknown) (unknown) Blood Pressure (units (unknown) date) 134/75 10 unknown) 19:06 (unknown) (no (unknown) (unknown) Blood Pressure (units (unknown) date) 134/75 139/80 unknown) (unknown) (no (unknown) (unknown) Blood Pressure (units (unknown) date) 136/78 unknown) (unknown) (no (unknown) (unknown) Blood Pressure (units (unknown) date) 137/76 unknown) (unknown) (no (unknown) (unknown) Blood Pressure (units (unknown) date) 138/78 146/84 H unknown) (unknown) (no (unknown) (unknown) Blood Pressure (units (unknown) date) 150/100 H unknown) (unknown) (no (unknown) (unknown) Blood Pressure (units (unknown) date) 153/77 H 128/76 unknown) (unknown) (no (unknown) (unknown) Blood Pressure (units (unknown) date) unknown) (unknown) (no (unknown) (unknown) Bones and chest (units (unknown) date) wall:? No unknown) suspicious bony abnormalities.? Soft tissues appear (unknown) (no (unknown) (unknown) Bones:? (units (unkno wn) date) Unremarkable.? ? unknown) (unknown) (no (unknown) (unknown) Bydureon BCise 2 (units (unknown) date) mg/0.85 mL unknown) auto-injector (unknown) (no (unknown) (unknown) CK-MB (CK-2) Rel (units (unknown) date) Index TNP unknown) (unknown) (no (unknown) (unknown) CK-MB (CK-2) Rel (units (unknown) date) Index unknown) (unknown) (no (unknown) (unknown) CK-MB (CK-2) TNP (units (unknown) date) unknown) (unknown) (no (unknown) (unknown) CK-MB (CK-2) (units (u nknown) date) unknown) (unknown) (no (unknown) (unknown) COVID19 -Nasal (units (unknown) date) RAPID/Pre-Proc Stat unknown) (unknown) (no (unknown) (unknown) CT abdomen pelvis (units (unknown) date) w con Stat unknown) (unknown) (no (unknown) (unknown) CT scan - (units (unkn own) date) abdomen/pelvis: unknown) (unknown) (no (unknown) (unknown) CT scan does not (units (unknown) date) suggest acute unknown) abscess, diverticulitis or appendicitis. Some (unknown) (no (unknown) (unknown) Calcium (8.4-10.2) (units (unknown) date) mg/dL unknown) (unknown) (no (unknown) (unknown) Calcium 8.1 L (units ( unknown) date) (8.4-10.2) mg/dL unknown) (unknown) (no (unknown) (unknown) Carbon Dioxide (units (unknown) date) (22-32) mmol/L unknown) (unknown) (no (unknown) (unknown) Carbon Dioxide 23 (units (unknown) date) (22-32) mmol/L unknown) (unknown) (no (unknown) (unknown) Cardiac: (units (unkno wn) date) Tachycardic without unknown) murmurs (unknown) (no (unknown) (unknown) Ceftriaxone Sodium (units (unknown) date) 2,000 mg/ (Sodium unknown) Chloride) 100 mls @ 200 mls/hr IV NOW ONE (unknown) (no (unknown) (unknown) Chest [XR chest (units (unknown) date) 1V] Stat unknown) (unknown) (no (unknown) (unknown) Chest x-ray: (units (u nknown) date) unknown) (unknown) (no (unknown) (unknown) Chief complaint: (units (unknown) date) Abdominal Pain unknown) (unknown) (no (unknown) (unknown) Chloride (98-107) (units (unknown) date) mmol/L unknown) (unknown) (no (unknown) (unknown) Chloride 96 L (units ( unknown) date) (98-107) mmol/L unknown) (unknown) (no (unknown) (unknown) Jillian Rosales, (units (unknown) date) MD [Primary Care unknown) Provider] (unknown) (no (unknown) (unknown) Clinical (units (unkno wn) date) Impression: unknown) (unknown) (no (unknown) (unknown) Clinical reason (units (unknown) date) for NOT initiating unknown) fluid bolus: (unknown) (no (unknown) (unknown) Complete Blood (units (unknown) date) Count AUTO DIFF unknown) Stat (unknown) (no (unknown) (unknown) Comprehensive (units ( unknown) date) Metabolic Panel unknown) Stat (unknown) (no (unknown) (unknown) Course (units (unkno wn) date) unknown) (unknown) (no (unknown) (unknown) Creatinine (units (unk nown) date) (0.66-1.25) mg/dL unknown) (unknown) (no (unknown) (unknown) Creatinine 1.60 H (units (unknown) date) (0.66-1.25) mg/dL unknown) (unknown) (no (unknown) (unknown) Currently at a (units (unknown) date) rate of a 130. Post unknown) intubation and central line chest x-ray (unknown) (no (unknown) (unknown) D Dimer Stat (units (u nknown) date) unknown) (unknown) (no (unknown) (unknown) D-Dimer (<500) (units (unknown) date) ng/ml unknown) (unknown) (no (unknown) (unknown) D-Dimer 821 H (units ( unknown) date) (<500) ng/ml unknown) (unknown) (no (unknown) (unknown) : 1950 (units (unknown) date) Acct:[id number] unknown) (unknown) (no (unknown) (unknown) Date of Service: (units (unknown) date) 01/31/22 unknown) (unknown) (no (unknown) (unknown) Departure (units (unkn own) date) unknown) (unknown) (no (unknown) (unknown) Dictated by: Dwayne (units (unknown) date) Jody Meadows on unknown) 01/31/2022 at 20:08 ? ? (unknown) (no (unknown) (unknown) Dictated by: Dwayne (units (unknown) date) Jody Meadows on unknown) 01/31/2022 at 21:21 ? ? (unknown) (no (unknown) (unknown) Discharge Plan (units (unknown) date) unknown) (unknown) (no (unknown) (unknown) Discontinued (units (u nknown) date) Medications unknown) (unknown) (no (unknown) (unknown) Documented By: NR (units (unknown) date) unknown) (unknown) (no (unknown) (unknown) ECG Data (units (unkno wn) date) unknown) (unknown) (no (unknown) (unknown) ED Orders (units (unkn own) date) unknown) (unknown) (no (unknown) (unknown) EKG-12 Lead Stat (units (unknown) date) unknown) (unknown) (no (unknown) (unknown) ER Physician: (units ( unknown) date) Kyleigh Castellanos MD unknown) (unknown) (no (unknown) (unknown) Emergency Report (units (unknown) date) unknown) (unknown) (no (unknown) (unknown) Eos % (Auto) Not (units (unknown) date) Reportable unknown) (unknown) (no (unknown) (unknown) Eos % (Auto) (units (u nknown) date) unknown) (unknown) (no (unknown) (unknown) Esterase (units (unkno wn) date) unknown) (unknown) (no (unknown) (unknown) Estimated GFR (units ( unknown) date) (>60) mL/min unknown) (unknown) (no (unknown) (unknown) Estimated GFR 45 L (units (unknown) date) (>60) mL/min unknown) (unknown) (no (unknown) (unknown) Exam (units (unkno wn) date) unknown) (unknown) (no (unknown) (unknown) Extremities: No (units (unknown) date) trauma, well unknown) perfused (unknown) (no (unknown) (unknown) FINDINGS:? (units (unk nown) date) unknown) (unknown) (no (unknown) (unknown) Full and (units (unkno wn) date) symmetrical air unknown) movement, no respiratory distress appreciated (unknown) (no (unknown) (unknown) Gallbladder:? (units ( unknown) date) Unremarkable.? ? unknown) (unknown) (no (unknown) (unknown) General (units (unkno wn) date) unknown) (unknown) (no (unknown) (unknown) General: Acutely (units (unknown) date) ill-appearing, unknown) pale, significantly fatigued but will respond (unknown) (no (unknown) (unknown) Globulin (1.7-4.1) (units (unknown) date) g/dL unknown) (unknown) (no (unknown) (unknown) Globulin 3.4 (units (u nknown) date) (1.7-4.1) g/dL unknown) (unknown) (no (unknown) (unknown) Glucose (80-110) (units (unknown) date) mg/dL unknown) (unknown) (no (unknown) (unknown) Glucose 262 H (units ( unknown) date) (80-110) mg/dL unknown) (unknown) (no (unknown) (unknown) Goal directed (units ( unknown) date) therapy within 3 unknown) hours of septic shock or initial hypotension (unknown) (no (unknown) (unknown) Goal directed (units ( unknown) date) treatment unknown) (unknown) (no (unknown) (unknown) HEENT: Moist (units (u nknown) date) mucous membranes, unknown) normal sclera with reactive pupils, (unknown) (no (unknown) (unknown) HPI - General (units ( unknown) date) Adult unknown) (unknown) (no (unknown) (unknown) HPI narrative: (units (unknown) date) unknown) (unknown) (no (unknown) (unknown) Hct (41-53) % (units ( unknown) date) unknown) (unknown) (no (unknown) (unknown) Hct 38.2 L (41-53) (units (unknown) date) % unknown) (unknown) (no (unknown) (unknown) He has a history (units (unknown) date) of kidney stones unknown) and 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 No (units (unk nown) date) significant unknown) findings. (unknown) (no (unknown) (unknown) Hgb (13.5-17.5) (units (unknown) date) g/dL unknown) (unknown) (no (unknown) (unknown) Hgb 13.3 L (units (unk nown) date) (13.5-17.5) g/dL unknown) (unknown) (no (unknown) (unknown) History of Present (units (unknown) date) Illness unknown) (unknown) (no (unknown) (unknown) History of kidney (units (unknown) date) stones unknown) (unknown) (no (unknown) (unknown) Home Medications (units (unknown) date) unknown) (unknown) (no (unknown) (unknown) Hyperlipidemia (units (unknown) date) unknown) (unknown) (no (unknown) (unknown) Hypertension (units (u nknown) date) unknown) (unknown) (no (unknown) (unknown) IMPRESSION:? No (units (unknown) date) abscess found, no unknown) evidence of colitis or diverticulitis, or (unknown) (no (unknown) (unknown) IMPRESSION:? (units (u nknown) date) Reduced inspiratory unknown) volume, no acute disease when this factor is (unknown) (no (unknown) (unknown) INR (0.9-1.3) (units ( unknown) date) unknown) (unknown) (no (unknown) (unknown) INR 1.6 H (units (unkn own) date) (0.9-1.3) unknown) (unknown) (no (unknown) (unknown) Image quality:? (units (unknown) date) Excellent.? unknown) (unknown) (no (unknown) (unknown) Imaging Data (units (u nknown) date) unknown) (unknown) (no (unknown) (unknown) Initial Vital (units ( unknown) date) Signs unknown) (unknown) (no (unknown) (unknown) Initial Vital (units ( unknown) date) Signs: unknown) (unknown) (no (unknown) (unknown) Initial chest x-ray (units (unknown) date) does not suggest unknown) significant infiltrates or congestive heart (unknown) (no (unknown) (unknown) Initial (units (unkno wn) date) presumption was unknown) sepsis or developing sepsis. Fluid resuscitation with (unknown) (no (unknown) (unknown) Interpretation: (units (unknown) date) unknown) (unknown) (no (unknown) (unknown) [facility] (units (unknown) date) [address] unknown) [place] [address] (unknown) (no (unknown) (unknown) Kidney stones (units ( unknown) date) unknown) (unknown) (no (unknown) (unknown) Kidneys and (units (un known) date) Ureters:? 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 (unknown) (no (unknown) (unknown) Lab Data (units (unkno wn) date) unknown) (unknown) (no (unknown) (unknown) Lab Results (units (un known) date) unknown) (unknown) (no (unknown) (unknown) Label Comments: (units (unknown) date) unknown) (unknown) (no (unknown) (unknown) Labs: (units (unkno wn) date) unknown) (unknown) (no (unknown) (unknown) Lactate (0.7-2.1) (units (unknown) date) mmol/L unknown) (unknown) (no (unknown) (unknown) Lactate (Lactic (units (unknown) date) Acid) Stat unknown) (unknown) (no (unknown) (unknown) Lactate 3.0 H (units ( unknown) date) (0.7-2.1) mmol/L unknown) (unknown) (no (unknown) (unknown) Lactic elevated at (units (unknown) date) 3.0, significantly unknown) elevated procalcitonin, urine certainly (unknown) (no (unknown) (unknown) Last Admin: (units (un known) date) 01/31/22 20:17 unknown) Dose: 100 mls/hr (unknown) (no (unknown) (unknown) Last Admin: (units (un known) date) 01/31/22 20:17 unknown) Dose: 920.79 mls/hr (unknown) (no (unknown) (unknown) Last Admin: (units (un known) date) 01/31/22 22:05 unknown) Dose: 975 mg (unknown) (no (unknown) (unknown) Last Admin: (units (un known) date) 01/31/22 22:18 unknown) Dose: 10 mg (unknown) (no (unknown) (unknown) Last Infusion: (units (unknown) date) 01/31/22 21:10 unknown) Dose: 0 mls/hr (unknown) (no (unknown) (unknown) Last Titration: (units (unknown) date) 01/31/22 23:06 unknown) Dose: 20 mcg/kg/min, 11.049 mls/hr (unknown) (no (unknown) (unknown) Left axis (units (unkn own) date) deviation unknown) (unknown) (no (unknown) (unknown) Liver:? (units (unkno wn) date) Unremarkable.? ? unknown) (unknown) (no (unknown) (unknown) Lung bases:? (units (u nknown) date) Unremarkable. unknown) (unknown) (no (unknown) (unknown) Lungs and pleura:? (units (unknown) date) Lungs are clear.? unknown) No pleural effusions or pneumothorax.? (unknown) (no (unknown) (unknown) Lymph # (Auto) Not (units (unknown) date) Reportable unknown) (unknown) (no (unknown) (unknown) Lymph # (Auto) (units (unknown) date) unknown) (unknown) (no (unknown) (unknown) Lymph % (Auto) Not (units (unknown) date) Reportable unknown) (unknown) (no (unknown) (unknown) Lymph % (Auto) (units (unknown) date) unknown) (unknown) (no (unknown) (unknown) Lymphocytes % (units ( unknown) date) (Manual) (25-45) % unknown) (unknown) (no (unknown) (unknown) Lymphocytes % (units ( unknown) date) (Manual) 5.0 L unknown) (25-45) % (unknown) (no (unknown) (unknown) [id number] (units (unk nown) date) unknown) (unknown) (no (unknown) (unknown) MCH (26-34) PG (units (unknown) date) unknown) (unknown) (no (unknown) (unknown) MCH 28.5 (26-34) (units (unknown) date) PG unknown) (unknown) (no (unknown) (unknown) MCHC (30-36) % (units (unknown) date) unknown) (unknown) (no (unknown) (unknown) MCHC 34.8 (30-36) (units (unknown) date) % unknown) (unknown) (no (unknown) (unknown) MCV (80-100) fL (units (unknown) date) unknown) (unknown) (no (unknown) (unknown) MCV 81.8 (80-100) (units (unknown) date) fL unknown) (unknown) (no (unknown) (unknown) MDM Narrative (units ( unknown) date) unknown) (unknown) (no (unknown) (unknown) Measure peak (units (u nknown) date) expiratory flow unknown) ONCE (unknown) (no (unknown) (unknown) Mediastinum:? (units ( unknown) date) Mediastinal unknown) contours are normal.? Heart size is normal.? (unknown) (no (unknown) (unknown) Medical Decision (units (unknown) date) Making unknown) (unknown) (no (unknown) (unknown) Medical History (units (unknown) date) (Updated 01/31/22 @ unknown) 22:11 by Kyleigh Castellanos MD) (unknown) (no (unknown) (unknown) Medical decision (units (unknown) date) making narrative: unknown) (unknown) (no (unknown) (unknown) Medication (units (unk nown) date) Instructions unknown) Recorded Confirmed (unknown) (no (unknown) (unknown) Medication (units (unk nown) date) Instructions unknown) Recorded (unknown) (no (unknown) (unknown) Metoclopramide HCl (units (unknown) date) (Metoclopramide 10 unknown) Mg/2 Ml Inj) 10 mg IV NOW ONE (unknown) (no (unknown) (unknown) Metronidazole (units ( unknown) date) (Flagyl) 500 mg in unknown) 100 mls @ 100 mls/hr IV NOW ONE (unknown) (no (unknown) (unknown) Miscellaneous: No (units (unknown) date) hernias are seen. ? unknown) ? (unknown) (no (unknown) (unknown) [place] # (Auto) Not (units (unknown) date) Reportable unknown) (unknown) (no (unknown) (unknown) [place] # (Auto) (units ( unknown) date) unknown) (unknown) (no (unknown) (unknown) [place] % (Auto) Not (units (unknown) date) Reportable unknown) (unknown) (no (unknown) (unknown) [place] % (Auto) (units ( unknown) date) unknown) (unknown) (no (unknown) (unknown) Monocytes % (units (un known) date) (Manual) (2-11) % unknown) (unknown) (no (unknown) (unknown) Monocytes % (units (un known) date) (Manual) 1.0 L unknown) (2-11) % (unknown) (no (unknown) (unknown) Must include vital (units (unknown) date) signs, unknown) cardiopulmonary exam, capillary refill, (unknown) (no (unknown) (unknown) Narrative: (units (unk nown) date) unknown) (unknown) (no (unknown) (unknown) Neck: No JVD, (units ( unknown) date) supple unknown) (unknown) (no (unknown) (unknown) Neurologic: (units (un known) date) Globally weak but unknown) Grossly neurologically intact with no obvious (unknown) (no (unknown) (unknown) Neut % (Auto) Not (units (unknown) date) Reportable unknown) (unknown) (no (unknown) (unknown) Neut % (Auto) (units ( unknown) date) unknown) (unknown) (no (unknown) (unknown) Neutrophils # (units ( unknown) date) (Manual) unknown) ([id number]) /uL (unknown) (no (unknown) (unknown) Neutrophils # (units ( unknown) date) (Manual) 85537 H unknown) ([id number]) /uL (unknown) (no (unknown) (unknown) No Action (units (unkn own) date) unknown) (unknown) (no (unknown) (unknown) ONE; Protocol (units ( unknown) date) unknown) (unknown) (no (unknown) (unknown) Ordered: (units (unkno wn) date) unknown) (unknown) (no (unknown) (unknown) Orders (units (unkno wn) date) unknown) (unknown) (no (unknown) (unknown) Oxygen Delivery (units (unknown) date) Method 01/31/22 unknown) 19:06 (unknown) (no (unknown) (unknown) Oxygen Delivery (units (unknown) date) Method Room Air unknown) Room Air (unknown) (no (unknown) (unknown) Oxygen Delivery (units (unknown) date) Method unknown) (unknown) (no (unknown) (unknown) PELVIS: (units (unkno wn) date) unknown) (unknown) (no (unknown) (unknown) PT (10.1-12.7) (units (unknown) date) SECONDS unknown) (unknown) (no (unknown) (unknown) PT 18.9 H (units (unkn own) date) (10.1-12.7) SECONDS unknown) (unknown) (no (unknown) (unknown) Pancreas:? (units (unk nown) date) Unremarkable.? ? unknown) (unknown) (no (unknown) (unknown) Partial (units (unkno wn) date) Thromboplastin Time unknown) Stat (unknown) (no (unknown) (unknown) Patient History (units (unknown) date) unknown) (unknown) (no (unknown) (unknown) Patient: (units (unkno wn) date) Pascual Padilla unknown) MR#: (unknown) (no (unknown) (unknown) Pelvic Nodes: No (units (unknown) date) enlarged lymph unknown) nodes.? (unknown) (no (unknown) (unknown) Pelvic Organs:? (units (unknown) date) Unremarkable.? ? unknown) (unknown) (no (unknown) (unknown) Penicillins (units (un known) date) Allergy Rash unknown) Verified 01/31/22 19:12 (unknown) (no (unknown) (unknown) Peritoneum:? No (units (unknown) date) abnormal unknown) intraperitoneal fluid.? No free air.? (unknown) (no (unknown) (unknown) Plt Count (units (unkn own) date) (150-400) X103/uL unknown) (unknown) (no (unknown) (unknown) Plt Count 156 (units ( unknown) date) (150-400) X103/uL unknown) (unknown) (no (unknown) (unknown) Point of care (units ( unknown) date) testing: unknown) (unknown) (no (unknown) (unknown) Potassium (units (unkn own) date) (3.4-5.1) mmol/L unknown) (unknown) (no (unknown) (unknown) Potassium 3.6 (units ( unknown) date) (3.4-5.1) mmol/L unknown) (unknown) (no (unknown) (unknown) Prescriptions: (units (unknown) date) unknown) (unknown) (no (unknown) (unknown) Previous Rx's (units ( unknown) date) unknown) (unknown) (no (unknown) (unknown) Procalcitonin (units ( unknown) date) (<0.5) ng/mL unknown) (unknown) (no (unknown) (unknown) Procalcitonin 4.70 (units (unknown) date) H (<0.5) ng/mL unknown) (unknown) (no (unknown) (unknown) Procalcitonin Stat (units (unknown) date) unknown) (unknown) (no (unknown) (unknown) Propofol (units (unkno wn) date) (Propofol) 1,000 mg unknown) in 100 mls @ 2.762 mls/hr IV TITRATE ANGI; Protocol (unknown) (no (unknown) (unknown) Prothrombin Time (units (unknown) date) INR Stat unknown) (unknown) (no (unknown) (unknown) Psych: (units (unkno wn) date) Cooperative, unknown) significant fatigue (unknown) (no (unknown) (unknown) Pulse Oximetry 100 (units (unknown) date) unknown) (unknown) (no (unknown) (unknown) Pulse Oximetry 81 (units (unknown) date) L unknown) (unknown) (no (unknown) (unknown) Pulse Oximetry 94 (units (unknown) date) unknown) (unknown) (no (unknown) (unknown) Pulse Oximetry 97 (units (unknown) date) 95 unknown) (unknown) (no (unknown) (unknown) Pulse Oximetry 97 (units (unknown) date) 96 unknown) (unknown) (no (unknown) (unknown) Pulse Oximetry 98 (units (unknown) date) 01/31/22 19:06 unknown) (unknown) (no (unknown) (unknown) Pulse Oximetry 98 (units (unknown) date) 95 unknown) (unknown) (no (unknown) (unknown) Pulse Oximetry 98 (units (unknown) date) 97 unknown) (unknown) (no (unknown) (unknown) Pulse Oximetry 99 (units (unknown) date) unknown) (unknown) (no (unknown) (unknown) Pulse Rate 117 H (units (unknown) date) 01/31/22 19:06 unknown) (unknown) (no (unknown) (unknown) Pulse Rate 117 H (units (unknown) date) 124 H unknown) (unknown) (no (unknown) (unknown) Pulse Rate 118 H (units (unknown) date) 67 unknown) (unknown) (no (unknown) (unknown) Pulse Rate 119 H (units (unknown) date) 120 H unknown) (unknown) (no (unknown) (unknown) Pulse Rate 119 H (units (unknown) date) unknown) (unknown) (no (unknown) (unknown) Pulse Rate 122 H (units (unknown) date) 116 H unknown) (unknown) (no (unknown) (unknown) Pulse Rate 122 H (units (unknown) date) unknown) (unknown) (no (unknown) (unknown) Pulse Rate 124 H (units (unknown) date) 139 H unknown) (unknown) (no (unknown) (unknown) Pulse Rate 143 H (units (unknown) date) unknown) (unknown) (no (unknown) (unknown) Pulse Rate 144 H (units (unknown) date) unknown) (unknown) (no (unknown) (unknown) QTC prolonged at (units (unknown) date) 583 milliseconds unknown) (unknown) (no (unknown) (unknown) Qualifiers: (units (un known) date) unknown) (unknown) (no (unknown) (unknown) RBC (4.5-5.9) (units ( unknown) date) X106/uL unknown) (unknown) (no (unknown) (unknown) RBC 4.66 (4.5-5.9) (units (unknown) date) X106/uL unknown) (unknown) (no (unknown) (unknown) RBC Morphology See (units (unknown) date) below unknown) (unknown) (no (unknown) (unknown) RBC Morphology (units (unknown) date) unknown) (unknown) (no (unknown) (unknown) RDW (11.6-14.8) % (units (unknown) date) unknown) (unknown) (no (unknown) (unknown) RDW 14.0 (units (unkno wn) date) (11.6-14.8) % unknown) (unknown) (no (unknown) (unknown) RT Consult Eval (units (unknown) date) and Treat Now unknown) (unknown) (no (unknown) (unknown) Radiologist's (units ( unknown) date) Impression: unknown) (unknown) (no (unknown) (unknown) Referrals: (units (unk nown) date) unknown) (unknown) (no (unknown) (unknown) Related Data (units (u nknown) date) unknown) (unknown) (no (unknown) (unknown) Remainder of (units (u nknown) date) complete review of unknown) systems is otherwise unremarkable except for (unknown) (no (unknown) (unknown) Respiratory Rate (units (unknown) date) 25 H 42 H unknown) (unknown) (no (unknown) (unknown) Respiratory Rate (units (unknown) date) 25 H unknown) (unknown) (no (unknown) (unknown) Respiratory Rate (units (unknown) date) 30 H unknown) (unknown) (no (unknown) (unknown) Respiratory Rate (units (unknown) date) 31 H unknown) (unknown) (no (unknown) (unknown) Respiratory Rate (units (unknown) date) 35 H 01/31/22 19:06 unknown) (unknown) (no (unknown) (unknown) Respiratory Rate (units (unknown) date) 35 H unknown) (unknown) (no (unknown) (unknown) Respiratory Rate (units (unknown) date) 37 H unknown) (unknown) (no (unknown) (unknown) Respiratory Rate (units (unknown) date) 39 H 41 H unknown) (unknown) (no (unknown) (unknown) Respiratory Rate (units (unknown) date) 40 H unknown) (unknown) (no (unknown) (unknown) Respiratory Rate (units (unknown) date) 43 H unknown) (unknown) (no (unknown) (unknown) Respiratory: Lungs (units (unknown) date) are clear to unknown) auscultation, no wheezing no rales no rhonchi. (unknown) (no (unknown) (unknown) Result diagrams: (units (unknown) date) unknown) (unknown) (no (unknown) (unknown) Review of Systems (units (unknown) date) unknown) (unknown) (no (unknown) (unknown) SARS-CoV-2 (PCR) (units (unknown) date) (Negative) unknown) (unknown) (no (unknown) (unknown) SARS-CoV-2 (PCR) (units (unknown) date) Negative (Negative) unknown) (unknown) (no (unknown) (unknown) Seg Neutrophils % (units (unknown) date) (38-70) % unknown) (unknown) (no (unknown) (unknown) Seg Neutrophils % (units (unknown) date) 82.0 H (38-70) % unknown) (unknown) (no (unknown) (unknown) Sepsis type: (units (u nknown) date) sepsis due to unknown) unspecified organism Sepsis acute organ dysfunction (unknown) (no (unknown) (unknown) Sepsis (units (unkno wn) date) unknown) (unknown) (no (unknown) (unknown) Septic Shock (units (u nknown) date) Criteria unknown) (unknown) (no (unknown) (unknown) Septic Shock (units (u nknown) date) Determination. the unknown) patient has been screened and (unknown) (no (unknown) (unknown) Severe Sepsis (units ( unknown) date) Criteria unknown) (unknown) (no (unknown) (unknown) Severe Sepsis (units ( unknown) date) Determination. the unknown) patient has been screened and (unknown) (no (unknown) (unknown) Signed By: (units (unk nown) date) unknown) (unknown) (no (unknown) (unknown) Sinus tachycardia (units (unknown) date) at a rate of 116 unknown) (unknown) (no (unknown) (unknown) Skin: Pale but (units (unknown) date) otherwise Warm and unknown) dry, no rashes (unknown) (no (unknown) (unknown) Smoking Status: (units (unknown) date) Never smoker unknown) (unknown) (no (unknown) (unknown) Social History (units (unknown) date) (Reviewed 01/31/22 unknown) @ 21:45 by Kyleigh Castellanos MD) (unknown) (no (unknown) (unknown) Sodium (137-145) (units (unknown) date) mmol/L unknown) (unknown) (no (unknown) (unknown) Sodium 135 L (units (u nknown) date) (137-145) mmol/L unknown) (unknown) (no (unknown) (unknown) Sodium Chloride (units (unknown) date) (Normal Saline unknown) 0.9%) 2,762.37 mls @ 920.79 mls/hr 30 ml/kg (unknown) (no (unknown) (unknown) Spleen:? (units (unkno wn) date) Unremarkable.? ? unknown) (unknown) (no (unknown) (unknown) Stated complaint: (units (unknown) date) Vomiting, Stomach unknown) cramps, SOB (unknown) (no (unknown) (unknown) Stomach and (units (un known) date) Bowel:? Stomach, unknown) small bowel loops, and colon are unremarkable.? (unknown) (no (unknown) (unknown) Stop: 01/31/22 (units (unknown) date) 20:06 unknown) (unknown) (no (unknown) (unknown) Stop: 01/31/22 (units (unknown) date) 21:04 unknown) (unknown) (no (unknown) (unknown) Stop: 01/31/22 (units (unknown) date) 21:42 unknown) (unknown) (no (unknown) (unknown) Stop: 01/31/22 (units (unknown) date) 22:13 unknown) (unknown) (no (unknown) (unknown) Stop: 01/31/22 (units (unknown) date) 22:50 unknown) (unknown) (no (unknown) (unknown) Stop: 01/31/22 (units (unknown) date) 23:01 unknown) (unknown) (no (unknown) (unknown) Stop: 02/01/22 (units (unknown) date) 04:48 unknown) (unknown) (no (unknown) (unknown) Substance Use (units ( unknown) date) Type: does not use unknown) (unknown) (no (unknown) (unknown) Subtle lateral ST (units (unknown) date) depression unknown) (unknown) (no (unknown) (unknown) Surgical changes (units (unknown) date) and devices:? unknown) None.? (unknown) (no (unknown) (unknown) Temperature 98.3 F (units (unknown) date) 01/31/22 19:06 unknown) (unknown) (no (unknown) (unknown) Temperature 98.3 F (units (unknown) date) unknown) (unknown) (no (unknown) (unknown) Temperature (units (un known) date) unknown) (unknown) (no (unknown) (unknown) The left (units (unkno wn) date) unknown) (unknown) (no (unknown) (unknown) Time Seen by (units (u nknown) date) Provider: 01/31/22 unknown) 19:43 (unknown) (no (unknown) (unknown) Time Septic Shock (units (unknown) date) diagnosed: [ ] unknown) (unknown) (no (unknown) (unknown) Total Bilirubin (units (unknown) date) (0.2-1.3) mg/dL unknown) (unknown) (no (unknown) (unknown) Total Bilirubin (units (unknown) date) 2.2 H (0.2-1.3) unknown) mg/dL (unknown) (no (unknown) (unknown) Total Counted 100 (units (unknown) date) unknown) (unknown) (no (unknown) (unknown) Total Counted (units ( unknown) date) unknown) (unknown) (no (unknown) (unknown) Total Creatine (units (unknown) date) Kinase (55-170) U/L unknown) (unknown) (no (unknown) (unknown) Total Creatine (units (unknown) date) Kinase 59 (55-170) unknown) U/L (unknown) (no (unknown) (unknown) Total Protein (units ( unknown) date) (6.3-8.2) g/dL unknown) (unknown) (no (unknown) (unknown) Total Protein 7.6 (units (unknown) date) (6.3-8.2) g/dL unknown) (unknown) (no (unknown) (unknown) Trop I [Troponin (units (unknown) date) I] Stat unknown) (unknown) (no (unknown) (unknown) Troponin + CK (units ( unknown) date) Cardiac Panel Stat unknown) (unknown) (no (unknown) (unknown) Troponin I (units (unk nown) date) (0.01-0.034) ng/mL unknown) (unknown) (no (unknown) (unknown) Troponin I 0.608 (units (unknown) date) H* (0.01-0.034) unknown) ng/mL (unknown) (no (unknown) (unknown) Troponin I 0.924 (units (unknown) date) H* (0.01-0.034) unknown) ng/mL (unknown) (no (unknown) (unknown) Troponin is (units (un known) date) elevated at 0.9-4. unknown) Priors are not available. He does not have a (unknown) (no (unknown) (unknown) Type 2 diabetes (units (unknown) date) mellitus unknown) (unknown) (no (unknown) (unknown) Ur Culture (units (unk nown) date) Indicated? Specimen unknown) cultured (unknown) (no (unknown) (unknown) Ur Culture (units (unk nown) date) Indicated? unknown) (unknown) (no (unknown) (unknown) Ur Leukocyte (units (u nknown) date) Esterase (NEGATIVE) unknown) (unknown) (no (unknown) (unknown) Ur Leukocyte (units (u nknown) date) Esterase 2+ H unknown) (NEGATIVE) (unknown) (no (unknown) (unknown) Ur Specific (units (un known) date) [place] unknown) (1.000-1.035) (unknown) (no (unknown) (unknown) Ur Specific (units (un known) date) [place] 1.010 unknown) (1.000-1.035) (unknown) (no (unknown) (unknown) Ur Squamous Epith (units (unknown) date) Cells (0-5/HPF) unknown) (unknown) (no (unknown) (unknown) Ur Squamous Epith (units (unknown) date) Cells None seen unknown) (0-5/HPF) (unknown) (no (unknown) (unknown) Urinalysis and (units (unknown) date) Microscopic Stat unknown) (unknown) (no (unknown) (unknown) Urine Appearance (units (unknown) date) Sl cloudy unknown) (unknown) (no (unknown) (unknown) Urine Appearance (units (unknown) date) unknown) (unknown) (no (unknown) (unknown) Urine Bacteria (units (unknown) date) (None) unknown) (unknown) (no (unknown) (unknown) Urine Bacteria (units (unknown) date) Many (>30) H (None) unknown) (unknown) (no (unknown) (unknown) Urine Bilirubin (units (unknown) date) (NEGATIVE) unknown) (unknown) (no (unknown) (unknown) Urine Bilirubin (units (unknown) date) Negative (NEGATIVE) unknown) (unknown) (no (unknown) (unknown) Urine Color Yellow (units (unknown) date) unknown) (unknown) (no (unknown) (unknown) Urine Color (units (un known) date) unknown) (unknown) (no (unknown) (unknown) Urine Culture Stat (units (unknown) date) unknown) (unknown) (no (unknown) (unknown) Urine Dip (units (unkn own) date) unknown) (unknown) (no (unknown) (unknown) Urine Glucose (UA) (units (unknown) date) (Negative) g/dL unknown) (unknown) (no (unknown) (unknown) Urine Glucose (UA) (units (unknown) date) Negative (Negative) unknown) g/dL (unknown) (no (unknown) (unknown) Urine Ketones (units ( unknown) date) (NEGATIVE) unknown) (unknown) (no (unknown) (unknown) Urine Ketones (units ( unknown) date) Negative (NEGATIVE) unknown) (unknown) (no (unknown) (unknown) Urine Nitrate (units ( unknown) date) (Negative) unknown) (unknown) (no (unknown) (unknown) Urine Nitrate (units ( unknown) date) Negative (Negative) unknown) (unknown) (no (unknown) (unknown) Urine Occult Blood (units (unknown) date) (Negative) unknown) (unknown) (no (unknown) (unknown) Urine Occult Blood (units (unknown) date) 1+ H (Negative) unknown) (unknown) (no (unknown) (unknown) Urine Protein (units ( unknown) date) (Negative) unknown) (unknown) (no (unknown) (unknown) Urine Protein 1+ H (units (unknown) date) (Negative) unknown) (unknown) (no (unknown) (unknown) Urine RBC (units (unkn own) date) (0-5/HPF) unknown) (unknown) (no (unknown) (unknown) Urine RBC 0-1/hpf (units (unknown) date) (0-5/HPF) unknown) (unknown) (no (unknown) (unknown) Urine Specific (units (unknown) date) [place] 1.02 unknown) (unknown) (no (unknown) (unknown) Urine Urobilinogen (units (unknown) date) (0.2) E.U./dL unknown) (unknown) (no (unknown) (unknown) Urine Urobilinogen (units (unknown) date) 0.2 (0.2) E.U./dL unknown) (unknown) (no (unknown) (unknown) Urine WBC (units (unkn own) date) (0-5/HPF) unknown) (unknown) (no (unknown) (unknown) Urine WBC (units (unkn own) date) 30-100/hpf H unknown) (0-5/HPF) (unknown) (no (unknown) (unknown) Urine pH (4.5-8.0) (units (unknown) date) unknown) (unknown) (no (unknown) (unknown) Urine pH 5.0 (units (u nknown) date) (4.5-8.0) unknown) (unknown) (no (unknown) (unknown) Ventral Wall: ? No (units (unknown) date) hernias.? unknown) (unknown) (no (unknown) (unknown) Vessels:? Aorta (units (unknown) date) and inferior vena unknown) cava are normal in size.? (unknown) (no (unknown) (unknown) Vital Signs - 8 hr (units (unknown) date) unknown) (unknown) (no (unknown) (unknown) Vital Signs (units (un known) date) unknown) (unknown) (no (unknown) (unknown) Vital signs: (units (u nknown) date) unknown) (unknown) (no (unknown) (unknown) WBC (4.5-11.0) (units (unknown) date) X103/uL unknown) (unknown) (no (unknown) (unknown) WBC 29.1 H (units (unk nown) date) (4.5-11.0) X103/uL unknown) (unknown) (no (unknown) (unknown) Was initially (units ( unknown) date) hypertensive is unknown) significantly tachycardic. Ultrasound for central (unknown) (no (unknown) (unknown) Within 3 hours (units (unknown) date) unknown) (unknown) (no (unknown) (unknown) Within 6 hours (if (units (unknown) date) continued unknown) hypotension after fluids or initial lactate >4) (unknown) (no (unknown) (unknown) XR chest 2V Stat (units (unknown) date) unknown) (unknown) (no (unknown) (unknown) [ ] 2 SIRS (units (unk nown) date) Criteria met unknown) (unknown) (no (unknown) (unknown) [ ] 30ml/kg fluid (units (unknown) date) unknown) (unknown) (no (unknown) (unknown) [ ] ABW used (units (u nknown) date) unknown) (unknown) (no (unknown) (unknown) [ ] BP < 90 or MAP (units (unknown) date) <65, >40mm decrease unknown) from normal baseline (unknown) (no (unknown) (unknown) [ ] Creat > 2.0 (units (unknown) date) unknown) (unknown) (no (unknown) (unknown) [ ] DOES NOT meet (units (unknown) date) criteria for septic unknown) shock (unknown) (no (unknown) (unknown) [ ] DOES NOT meet (units (unknown) date) criteria for severe unknown) sepsis (unknown) (no (unknown) (unknown) [ ] DOES meet (units ( unknown) date) criteria for septic unknown) shock (unknown) (no (unknown) (unknown) [ ] Evidence of at (units (unknown) date) least 1 organ unknown) system dysfunction (unknown) (no (unknown) (unknown) [ ] IBW (33.6) (units (unknown) date) used due to BMI > unknown) 30 (unknown) (no (unknown) (unknown) [ ] Initiate (units (u nknown) date) vasopressor therapy unknown) if persistent hypotension after adequate fluid (unknown) (no (unknown) (unknown) [ ] RR >20 (units (unk nown) date) unknown) (unknown) (no (unknown) (unknown) [ ] SBP ,90 or MAP (units (unknown) date) , 65 unknown) (unknown) (no (unknown) (unknown) [ ] altered mental (units (unknown) date) status unknown) (unknown) (no (unknown) (unknown) [ ] documentation (units (unknown) date) of septic shock unknown) (unknown) (no (unknown) (unknown) [ ] lactic > 4 at (units (unknown) date) any time unknown) (unknown) (no (unknown) (unknown) [ ] lactic redrawn (units (unknown) date) within 6 hours if unknown) >2.0 (unknown) (no (unknown) (unknown) [ ] mechanical (units (unknown) date) ventilation unknown) (unknown) (no (unknown) (unknown) [ ] patient or (units (unknown) date) advocate declining unknown) fluid administration after shared decision (unknown) (no (unknown) (unknown) [ ] platelet count (units (unknown) date) < 100k unknown) (unknown) (no (unknown) (unknown) [ ] provider (units (u nknown) date) documentation of unknown) severe sepsis (unknown) (no (unknown) (unknown) [ ] repeat volume (units (unknown) date) status and tissue unknown) perfusion assessment documented after fluid (unknown) (no (unknown) (unknown) [ x ] DOES meet (units (unknown) date) criteria for severe unknown) sepsis (unknown) (no (unknown) (unknown) [ x ] Lactate > 2 (units (unknown) date) unknown) (unknown) (no (unknown) (unknown) [ x ] broad (units (un known) date) spectrum abx unknown) started (unknown) (no (unknown) (unknown) [ x ] fever or (units (unknown) date) hypothermia unknown) (unknown) (no (unknown) (unknown) [ x ] lactic acid (units (unknown) date) level checked unknown) (unknown) (no (unknown) (unknown) [ x ] (units (unkno wn) date) leukocytosis/leukop unknown) enia/bandemia (unknown) (no (unknown) (unknown) [ x] HR >90 (units (un known) date) unknown) (unknown) (no (unknown) (unknown) [Embedded Image (units (unknown) date) Not Available] unknown) (unknown) (no (unknown) (unknown) [x ] T. Bili > 2.0 (units (unknown) date) unknown) (unknown) (no (unknown) (unknown) [x ] bacterial (units (unknown) date) source of infection unknown) suspected and documented (unknown) (no (unknown) (unknown) [x ] blood cx (units ( unknown) date) drawn prior to abx unknown) (unknown) (no (unknown) (unknown) a incontinence (units (unknown) date) pad. He has not unknown) been having any diarrhea or constipation. He (unknown) (no (unknown) (unknown) a slight (units (unkno wn) date) unknown) (unknown) (no (unknown) (unknown) account. (units (unkno wn) date) unknown) (unknown) (no (unknown) (unknown) acute renal (units (un known) date) failure Acute renal unknown) failure type: unspecified Severe sepsis shock (unknown) (no (unknown) (unknown) administered. His (units (unknown) date) abdominal pain is unknown) significantly improved. He is still (unknown) (no (unknown) (unknown) alcohol intake (units (unknown) date) frequency: unknown) holidays/special occasions only (unknown) (no (unknown) (unknown) alcohol intake: (units (unknown) date) current unknown) (unknown) (no (unknown) (unknown) amlodipine 10 mg (units (unknown) date) tablet 10 mg PO unknown) DAILY 01/27/18 07/13/19 (unknown) (no (unknown) (unknown) amlodipine 10 mg (units (unknown) date) tablet unknown) (unknown) (no (unknown) (unknown) and normotensive (units (unknown) date) with oxygen unknown) saturations 99% on room air. (unknown) (no (unknown) (unknown) any significant (units (unknown) date) cough, chest pain, unknown) palpitations, lower extremity edema. He (unknown) (no (unknown) (unknown) appendicitis. (units ( unknown) date) unknown) (unknown) (no (unknown) (unknown) appropriate (units (un known) date) sedation. No unknown) significant debris or edema coming up the ET tube. (unknown) (no (unknown) (unknown) asymmetries or (units (unknown) date) abnormalities unknown) (unknown) (no (unknown) (unknown) been significantly (units (unknown) date) fatigued but is unknown) otherwise cognitively intact. (unknown) (no (unknown) (unknown) began with (units (unk nown) date) ceftriaxone and unknown) Flagyl thinking that this was a GI source. (unknown) (no (unknown) (unknown) bolus was (units (unkn own) date) completed at unknown) [Date/Time] (unknown) (no (unknown) (unknown) bolus (units (unkno wn) date) unknown) (unknown) (no (unknown) (unknown) by the bladder (units (unknown) date) outlet obstruction unknown) and chronic urinary retention. (unknown) (no (unknown) (unknown) capillary refill (units (unknown) date) and no evidence of unknown) hypotension. Findings and concerns are (unknown) (no (unknown) (unknown) chlorthalidone 50 (units (unknown) date) mg tablet 50 mg PO unknown) DAILY 01/27/18 07/13/19 (unknown) (no (unknown) (unknown) chlorthalidone 50 (units (unknown) date) mg tablet unknown) (unknown) (no (unknown) (unknown) collecting (units (unk nown) date) unknown) (unknown) (no (unknown) (unknown) degree Mya renal (units (unknown) date) edema.? A urinary unknown) tract stone, is not seen on the left. (unknown) (no (unknown) (unknown) exenatide (units (unkn own) date) microspheres 2 unknown) mg/0.85 2 mg SUBCUT QWEEK 07/05/19 07/13/19 (unknown) (no (unknown) (unknown) failure. Current (units (unknown) date) access is 2 20 unknown) gauge peripheral IVs (unknown) (no (unknown) (unknown) fatigue, overall (units (unknown) date) altered mental unknown) status, increasing abdominal pain. He denies (unknown) (no (unknown) (unknown) fenofibrate (units (un known) date) nanocrystallized unknown) 145 145 mg PO DAILY 07/05/19 07/13/19 (unknown) (no (unknown) (unknown) fenofibrate (units (un known) date) nanocrystallized unknown) 145 mg tablet (unknown) (no (unknown) (unknown) for such. He is (units (unknown) date) not complaining of unknown) chest pain. Will repeat. (unknown) (no (unknown) (unknown) has been passing (units (unknown) date) gas. Reports no unknown) significant headache. They report that he has (unknown) (no (unknown) (unknown) history of known (units (unknown) date) coronary disease unknown) but does have a all appropriate risk factors (unknown) (no (unknown) (unknown) household members: (units (unknown) date) spouse unknown) (unknown) (no (unknown) (unknown) hydronephrosis or (units (unknown) date) unknown) (unknown) (no (unknown) (unknown) hyperlipidemia, (units (unknown) date) prior kidney stones unknown) presents with 12 hours of increasing fevers, (unknown) (no (unknown) (unknown) infuse over 3 hr (units (unknown) date) (2762.37 ml) IV NOW unknown) ONE (unknown) (no (unknown) (unknown) insulin glargine (units (unknown) date) 100 unit/mL (3 26 unknown) units SUBCUT DAILY 01/27/18 07/13/19 (unknown) (no (unknown) (unknown) insulin glargine (units (unknown) date) 100 unit/mL (3 mL) unknown) insulin pen (unknown) (no (unknown) (unknown) is placed. Urine (units (unknown) date) does look acutely unknown) infected. (unknown) (no (unknown) (unknown) kidney demonstrates (units (unknown) date) slight prominence unknown) of the central renal collecting system and (unknown) (no (unknown) (unknown) levofloxacin [From (units (unknown) date) Levaquin] Allergy unknown) Rash Verified 01/31/22 19:12 (unknown) (no (unknown) (unknown) line placement (units (unknown) date) shows no evidence unknown) of volume depletion. He is given 5 mg of IV (unknown) (no (unknown) (unknown) looks like a (units (u nknown) date) urinary tract unknown) infection. In the setting of acute urinary (unknown) (no (unknown) (unknown) losartan 100 mg (units (unknown) date) tablet 100 mg PO unknown) DAILY 01/27/18 07/13/19 (unknown) (no (unknown) (unknown) losartan 100 mg (units (unknown) date) tablet unknown) (unknown) (no (unknown) (unknown) mL subcutaneous (units (unknown) date) auto-injector unknown) (unknown) (no (unknown) (unknown) mL) subcutaneous (units (unknown) date) pen unknown) (unknown) (no (unknown) (unknown) making (units (unkno wn) date) conversation unknown) (unknown) (no (unknown) (unknown) metformin 500 mg (units (unknown) date) tablet 500 mg PO unknown) BID 01/27/18 07/13/19 (unknown) (no (unknown) (unknown) metformin 500 mg (units (unknown) date) tablet unknown) (unknown) (no (unknown) (unknown) metoprolol with (units (unknown) date) his rate coming unknown) down from a sinus tach in the 160 range to the (unknown) (no (unknown) (unknown) mg tablet (units (unkn own) date) unknown) (unknown) (no (unknown) (unknown) minor prominence (units (unknown) date) of the renal unknown) collecting system on the left without obvious (unknown) (no (unknown) (unknown) mondays (units (unkno wn) date) unknown) (unknown) (no (unknown) (unknown) no flank pain (units ( unknown) date) unknown) (unknown) (no (unknown) (unknown) not (units (unkno wn) date) unknown) (unknown) (no (unknown) (unknown) of oxygen. Given (units (unknown) date) Reglan. With unknown) prolonged QT I do not want to use Zofran. (unknown) (no (unknown) (unknown) organism (units (unkno wn) date) unknown) (unknown) (no (unknown) (unknown) oxycodone 5 mg (units (unknown) date) capsule 5 mg PO Q4H unknown) PRN pain #14 caps 07/13/19 (unknown) (no (unknown) (unknown) oxycodone 5 mg (units (unknown) date) capsule unknown) (unknown) (no (unknown) (unknown) pain for further (units (unknown) date) evaluation. unknown) Tachycardic, tachypneic, afebrile on presentation (unknown) (no (unknown) (unknown) peripheral pulse (units (unknown) date) evaluation, skin unknown) exam (unknown) (no (unknown) (unknown) pigtail right (units ( unknown) date) ureteral stent unknown) without hydronephrosis or hydroureter. Urine (unknown) (no (unknown) (unknown) pigtail (units (unkno wn) date) unknown) (unknown) (no (unknown) (unknown) prior to (units (unkno wn) date) determining acuity unknown) of hospital needs for admission. (unknown) (no (unknown) (unknown) retained (units (unkno wn) date) calculus.? On the unknown) left there is mild prominence of the central renal (unknown) (no (unknown) (unknown) retention, pigtail (units (unknown) date) catheter still in unknown) place and mild prominence of the collecting (unknown) (no (unknown) (unknown) reviewed with the (units (unknown) date) patient and his unknown) daughter. Will wait to see repeat troponin (unknown) (no (unknown) (unknown) right ureteral (units (unknown) date) stent.? There is no unknown) right-sided hydronephrosis or hydroureter.? (unknown) (no (unknown) (unknown) rosuvastatin 40 mg (units (unknown) date) tablet 40 mg PO unknown) DAILY 07/05/19 07/13/19 (unknown) (no (unknown) (unknown) rosuvastatin 40 mg (units (unknown) date) tablet unknown) (unknown) (no (unknown) (unknown) sample is obtained (units (unknown) date) and 1725 cc of unknown) urine are initially drained. Ramírez catheter (unknown) (no (unknown) (unknown) saturations are (units (unknown) date) dropping slightly unknown) 87% with a good waveform. He started on 2 L (unknown) (no (unknown) (unknown) saturations. (units (u nknown) date) Patient is moved to unknown) room 1 intubated with central line placed. (unknown) (no (unknown) (unknown) seen. (units (unkno wn) date) unknown) (unknown) (no (unknown) (unknown) showing signs of (units (unknown) date) good peripheral unknown) perfusion with warm extremities with good (unknown) (no (unknown) (unknown) shows flash (units (un known) date) pulmonary edema unknown) (unknown) (no (unknown) (unknown) signs of (units (unkno wn) date) obstruction. unknown) (unknown) (no (unknown) (unknown) states that he is (units (unknown) date) able to void but it unknown) is only intervals and he frequently wears (unknown) (no (unknown) (unknown) status: with acute (units (unknown) date) organ dysfunction unknown) Severe sepsis acute organ dysfunction type: (unknown) (no (unknown) (unknown) status: without (units (unknown) date) septic shock unknown) Qualified Code(s): A41.9 - Sepsis, unspecified (unknown) (no (unknown) (unknown) system but an (units (u nknown) date) obstructive urinary unknown) tract stone more distally within the ureter is (unknown) (no (unknown) (unknown) system on the (units ( unknown) date) right without unknown) evidence of stone urology will be consult today. (unknown) (no (unknown) (unknown) taken into (units (unk nown) date) unknown) (unknown) (no (unknown) (unknown) tamsulosin 0.4 mg (units (unknown) date) capsule 0.4 mg PO unknown) DAILY #60 caps 07/13/19 (unknown) (no (unknown) (unknown) tamsulosin 0.4 mg (units (unknown) date) capsule unknown) (unknown) (no (unknown) (unknown) that included in (units (unknown) date) the HPI. unknown) (unknown) (no (unknown) (unknown) to direct (units (unkn own) date) questions unknown) (unknown) (no (unknown) (unknown) unremarkable.? (units (unknown) date) unknown) Result panel 20 (unknown) (no (unknown) (unknown) (no value) (units (unk nown) date) unknown) (unknown) (no (unknown) (unknown) (Bydureon BCise) (units (unknown) date) unknown) (unknown) (no (unknown) (unknown) 0.4 mg PO DAILY (units (unknown) date) Qty: 60 0RF unknown) (unknown) (no (unknown) (unknown) 10 mg PO DAILY (units (unknown) date) unknown) (unknown) (no (unknown) (unknown) 01/31/22 01/31/22 (units (unknown) date) 01/31/22 unknown) Range/Units (unknown) (no (unknown) (unknown) 01/31/22 19:24 (units (unknown) date) unknown) (unknown) (no (unknown) (unknown) 01/31/22 20:00 (units (unknown) date) unknown) (unknown) (no (unknown) (unknown) 01/31/22 20:02 (units (unknown) date) unknown) (unknown) (no (unknown) (unknown) 01/31/22 20:03 (units (unknown) date) unknown) (unknown) (no (unknown) (unknown) 01/31/22 20:14 (units (unknown) date) unknown) (unknown) (no (unknown) (unknown) 01/31/22 20:28 (units (unknown) date) unknown) (unknown) (no (unknown) (unknown) 01/31/22 22:13 (units (unknown) date) unknown) (unknown) (no (unknown) (unknown) 01/31/22 22:31 (units (unknown) date) unknown) (unknown) (no (unknown) (unknown) 01/31/22 (units (unkno wn) date) unknown) (unknown) (no (unknown) (unknown) 100 mg PO DAILY (units (unknown) date) unknown) (unknown) (no (unknown) (unknown) 1000pm patient is (units (unknown) date) re-evaluated. He is unknown) having fever and rigors and Tylenol as (unknown) (no (unknown) (unknown) 1015pm patient is (units (unknown) date) having an episode unknown) of emesis. Currently afebrile. Oxygen (unknown) (no (unknown) (unknown) 1055 Acute (units (unk nown) date) deterioration with unknown) severe respiratory strip distress, dropping (unknown) (no (unknown) (unknown) 130 range. Blood (units (unknown) date) pressure was unknown) initially 200/110 and is now down to 125/30 with (unknown) (no (unknown) (unknown) 145 mg PO DAILY (units (unknown) date) unknown) (unknown) (no (unknown) (unknown) 19:06 01/31/22 (units (unknown) date) unknown) (unknown) (no (unknown) (unknown) 19:19 01/31/22 (units (unknown) date) unknown) (unknown) (no (unknown) (unknown) 19:20 01/31/22 (units (unknown) date) unknown) (unknown) (no (unknown) (unknown) 19:20 (units (unkno wn) date) unknown) (unknown) (no (unknown) (unknown) 19:30 01/31/22 (units (unknown) date) unknown) (unknown) (no (unknown) (unknown) 19:30 (units (unkno wn) date) unknown) (unknown) (no (unknown) (unknown) 2 mg SUBCUT QWEEK (units (unknown) date) unknown) (unknown) (no (unknown) (unknown) 20:00 01/31/22 (units (unknown) date) unknown) (unknown) (no (unknown) (unknown) 20:00 20:00 20:00 (units (unknown) date) unknown) (unknown) (no (unknown) (unknown) 20:14 22:13 22:13 (units (unknown) date) unknown) (unknown) (no (unknown) (unknown) 20:30 01/31/22 (units (unknown) date) unknown) (unknown) (no (unknown) (unknown) 20:30 (units (unkno wn) date) unknown) (unknown) (no (unknown) (unknown) 20:45 01/31/22 (units (unknown) date) unknown) (unknown) (no (unknown) (unknown) 21:07 (units (unkno wn) date) unknown) (unknown) (no (unknown) (unknown) 21:11 01/31/22 (units (unknown) date) unknown) (unknown) (no (unknown) (unknown) 21:15 01/31/22 (units (unknown) date) unknown) (unknown) (no (unknown) (unknown) 21:30 01/31/22 (units (unknown) date) unknown) (unknown) (no (unknown) (unknown) 21:30 (units (unkno wn) date) unknown) (unknown) (no (unknown) (unknown) 21:46 01/31/22 (units (unknown) date) unknown) (unknown) (no (unknown) (unknown) 21:46 (units (unkno wn) date) unknown) (unknown) (no (unknown) (unknown) 22:00 01/31/22 (units (unknown) date) unknown) (unknown) (no (unknown) (unknown) 22:05 (units (unkno wn) date) unknown) (unknown) (no (unknown) (unknown) 22:15 (units (unkno wn) date) unknown) (unknown) (no (unknown) (unknown) 26 units subcut (units (unknown) date) DAILY unknown) (unknown) (no (unknown) (unknown) 30 particular was (units (unknown) date) initiated. He is unknown) allergic to penicillin so rather than Zosyn (unknown) (no (unknown) (unknown) 40 mg PO DAILY (units (unknown) date) unknown) (unknown) (no (unknown) (unknown) 5 mg PO Q4H PRN (units (unknown) date) (Reason: pain) Qty: unknown) 14 0RF (unknown) (no (unknown) (unknown) 50 mg PO DAILY (units (unknown) date) unknown) (unknown) (no (unknown) (unknown) 500 mg PO BID (units ( unknown) date) unknown) (unknown) (no (unknown) (unknown) 71-year-old (units (un known) date) gentleman presents unknown) acutely ill, febrile pale with severe abdominal (unknown) (no (unknown) (unknown) 71-year-old (units (un known) date) gentleman with unknown) history of hypertension, type 2 diabetes, (unknown) (no (unknown) (unknown) ? 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 (unknown) (no (unknown) (unknown) ABDOMEN: (units (unkno wn) date) unknown) (unknown) (no (unknown) (unknown) ALT (<50) IU/L (units (unknown) date) unknown) (unknown) (no (unknown) (unknown) ALT 16 (<50) IU/L (units (unknown) date) unknown) (unknown) (no (unknown) (unknown) APTT (26-36) (units (u nknown) date) SECONDS unknown) (unknown) (no (unknown) (unknown) APTT 31 (26-36) (units (unknown) date) SECONDS unknown) (unknown) (no (unknown) (unknown) AST (17-59) IU/L (units (unknown) date) unknown) (unknown) (no (unknown) (unknown) AST 31 (17-59) (units (unknown) date) IU/L unknown) (unknown) (no (unknown) (unknown) Abdomen: Mild (units ( unknown) date) distention, diffuse unknown) abdominal pain without rebound or guarding, (unknown) (no (unknown) (unknown) Abdominal Nodes:? (units (unknown) date) No retroperitoneal unknown) or mesenteric adenopathy by size criteria.? (unknown) (no (unknown) (unknown) Acetaminophen (units ( unknown) date) (Acetaminophen 325 unknown) Mg Tablet) 975 mg PO NOW ONE (unknown) (no (unknown) (unknown) Acute kidney (units (u nknown) date) injury with unknown) creatinine increased from 1.3-1.6. Likely compounded (unknown) (no (unknown) (unknown) Acute (units (unkno wn) date) pyelonephritis, unknown) Benign prostatic hyperplasia, Acute urinary retention (unknown) (no (unknown) (unknown) Additional (units (unk nown) date) Information: unknown) (unknown) (no (unknown) (unknown) Admin: 01/31/22 (units (unknown) date) 20:13 Dose: 200 unknown) mls/hr (unknown) (no (unknown) (unknown) Adrenal Glands:? (units (unknown) date) Unremarkable.? ? unknown) (unknown) (no (unknown) (unknown) Age/Sex: 71 / M (units (unknown) date) unknown) (unknown) (no (unknown) (unknown) Albumin (3.5-5.0) (units (unknown) date) g/dL unknown) (unknown) (no (unknown) (unknown) Albumin 4.2 (units (un known) date) (3.5-5.0) g/dL unknown) (unknown) (no (unknown) (unknown) Albumin/Globulin (units (unknown) date) Ratio (1.0-2.8) unknown) (unknown) (no (unknown) (unknown) Albumin/Globulin (units (unknown) date) Ratio 1.2 (1.0-2.8) unknown) (unknown) (no (unknown) (unknown) Alkaline (units (unkno wn) date) Phosphatase unknown) (38-126) U/L (unknown) (no (unknown) (unknown) Alkaline (units (unkno wn) date) Phosphatase 66 unknown) (38-126) U/L (unknown) (no (unknown) (unknown) Allergies (units (unkn own) date) unknown) (unknown) (no (unknown) (unknown) Allergy/AdvReac (units (unknown) date) Type Severity unknown) Reaction Status Date / Time (unknown) (no (unknown) (unknown) Amiodarone HCl (units (unknown) date) (Amiodarone 150 unknown) Mg/3 Ml Vial) 300 mg IV NOW ONE (unknown) (no (unknown) (unknown) Amiodarone (units (unk nown) date) HCl/Dextrose unknown) (Nexterone) 360 mg in 200 mls @ 33.333 mls/hr IV NOW (unknown) (no (unknown) (unknown) Anisocytosis 1+ H (units (unknown) date) unknown) (unknown) (no (unknown) (unknown) Anisocytosis (units (u nknown) date) unknown) (unknown) (no (unknown) (unknown) 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, unknown) Ramírez catheter now in place (unknown) (no (unknown) (unknown) BUN (9-20) mg/dL (units (unknown) date) unknown) (unknown) (no (unknown) (unknown) BUN 22 H (9-20) (units (unknown) date) mg/dL unknown) (unknown) (no (unknown) (unknown) BUN/Creatinine (units (unknown) date) Ratio (6-22) unknown) (unknown) (no (unknown) (unknown) BUN/Creatinine (units (unknown) date) Ratio 13.8 (6-22) unknown) (unknown) (no (unknown) (unknown) Band Neutrophils % (units (unknown) date) (3-7) % unknown) (unknown) (no (unknown) (unknown) Band Neutrophils % (units (unknown) date) 12.0 H (3-7) % unknown) (unknown) (no (unknown) (unknown) Baso # (Auto) Not (units (unknown) date) Reportable unknown) (unknown) (no (unknown) (unknown) Baso # (Auto) (units ( unknown) date) unknown) (unknown) (no (unknown) (unknown) Baso % (Auto) Not (units (unknown) date) Reportable unknown) (unknown) (no (unknown) (unknown) Baso % (Auto) (units ( unknown) date) unknown) (unknown) (no (unknown) (unknown) Bedside Urine (units ( unknown) date) Bilirubin - unknown) Negative (unknown) (no (unknown) (unknown) Bedside Urine (units ( unknown) date) Glucose Negative unknown) (unknown) (no (unknown) (unknown) Bedside Urine (units ( unknown) date) Ketone - Negative unknown) (unknown) (no (unknown) (unknown) Bedside Urine (units ( unknown) date) Leukocytes + 70 unknown) (unknown) (no (unknown) (unknown) Bedside Urine (units ( unknown) date) Nitrite - Negative unknown) (unknown) (no (unknown) (unknown) Bedside Urine (units ( unknown) date) Occult Blood +/ unknown) (unknown) (no (unknown) (unknown) Bedside Urine (units ( unknown) date) Protein + 30 unknown) (unknown) (no (unknown) (unknown) Bedside Urine (units ( unknown) date) Urobilinogen - unknown) Negative (unknown) (no (unknown) (unknown) Bedside Urine pH 6 (units (unknown) date) unknown) (unknown) (no (unknown) (unknown) Biliary ducts:? (units (unknown) date) Unremarkable.? ? unknown) (unknown) (no (unknown) (unknown) Bladder:? (units (unkn own) date) Unremarkable.? ? unknown) (unknown) (no (unknown) (unknown) Blood Culture Stat (units (unknown) date) unknown) (unknown) (no (unknown) (unknown) Blood Pressure (units (unknown) date) 127/80 unknown) (unknown) (no (unknown) (unknown) Blood Pressure (units (unknown) date) 132/79 unknown) (unknown) (no (unknown) (unknown) Blood Pressure (units (unknown) date) 134/75 01/31/22 unknown) 19:06 (unknown) (no (unknown) (unknown) Blood Pressure (units (unknown) date) 134/75 139/80 unknown) (unknown) (no (unknown) (unknown) Blood Pressure (units (unknown) date) 136/78 unknown) (unknown) (no (unknown) (unknown) Blood Pressure (units (unknown) date) 137/76 unknown) (unknown) (no (unknown) (unknown) Blood Pressure (units (unknown) date) 138/78 146/84 H unknown) (unknown) (no (unknown) (unknown) Blood Pressure (units (unknown) date) 150/100 H unknown) (unknown) (no (unknown) (unknown) Blood Pressure (units (unknown) date) 153/77 H 128/76 unknown) (unknown) (no (unknown) (unknown) Blood Pressure (units (unknown) date) unknown) (unknown) (no (unknown) (unknown) Bones and chest (units (unknown) date) wall:? No unknown) suspicious bony abnormalities.? Soft tissues appear (unknown) (no (unknown) (unknown) Bones:? (units (unkno wn) date) Unremarkable.? ? unknown) (unknown) (no (unknown) (unknown) Bydureon BCise 2 (units (unknown) date) mg/0.85 mL unknown) auto-injector (unknown) (no (unknown) (unknown) CK-MB (CK-2) Rel (units (unknown) date) Index TNP unknown) (unknown) (no (unknown) (unknown) CK-MB (CK-2) Rel (units (unknown) date) Index unknown) (unknown) (no (unknown) (unknown) CK-MB (CK-2) TNP (units (unknown) date) unknown) (unknown) (no (unknown) (unknown) CK-MB (CK-2) (units (u nknown) date) unknown) (unknown) (no (unknown) (unknown) COVID19 -Nasal (units (unknown) date) RAPID/Pre-Proc Stat unknown) (unknown) (no (unknown) (unknown) CT abdomen pelvis (units (unknown) date) w con Stat unknown) (unknown) (no (unknown) (unknown) CT scan - (units (unkn own) date) abdomen/pelvis: unknown) (unknown) (no (unknown) (unknown) CT scan does not (units (unknown) date) suggest acute unknown) abscess, diverticulitis or appendicitis. Some (unknown) (no (unknown) (unknown) Calcium (8.4-10.2) (units (unknown) date) mg/dL unknown) (unknown) (no (unknown) (unknown) Calcium 8.1 L (units ( unknown) date) (8.4-10.2) mg/dL unknown) (unknown) (no (unknown) (unknown) Carbon Dioxide (units (unknown) date) (22-32) mmol/L unknown) (unknown) (no (unknown) (unknown) Carbon Dioxide 23 (units (unknown) date) (22-32) mmol/L unknown) (unknown) (no (unknown) (unknown) Cardiac: (units (unkno wn) date) Tachycardic without unknown) murmurs (unknown) (no (unknown) (unknown) Ceftriaxone Sodium (units (unknown) date) 2,000 mg/ (Sodium unknown) Chloride) 100 mls @ 200 mls/hr IV NOW ONE (unknown) (no (unknown) (unknown) Chest [XR chest (units (unknown) date) 1V] Stat unknown) (unknown) (no (unknown) (unknown) Chest x-ray: (units (u nknown) date) unknown) (unknown) (no (unknown) (unknown) Chief complaint: (units (unknown) date) Abdominal Pain unknown) (unknown) (no (unknown) (unknown) Chloride (98-107) (units (unknown) date) mmol/L unknown) (unknown) (no (unknown) (unknown) Chloride 96 L (units ( unknown) date) (98-107) mmol/L unknown) (unknown) (no (unknown) (unknown) Jillian Rosales, (units (unknown) date) MD [Primary Care unknown) Provider] (unknown) (no (unknown) (unknown) Clinical (units (unkno wn) date) Impression: unknown) (unknown) (no (unknown) (unknown) Clinical reason (units (unknown) date) for NOT initiating unknown) fluid bolus: (unknown) (no (unknown) (unknown) Complete Blood (units (unknown) date) Count AUTO DIFF unknown) Stat (unknown) (no (unknown) (unknown) Comprehensive (units ( unknown) date) Metabolic Panel unknown) Stat (unknown) (no (unknown) (unknown) Course (units (unkno wn) date) unknown) (unknown) (no (unknown) (unknown) Creatinine (units (unk nown) date) (0.66-1.25) mg/dL unknown) (unknown) (no (unknown) (unknown) Creatinine 1.60 H (units (unknown) date) (0.66-1.25) mg/dL unknown) (unknown) (no (unknown) (unknown) Currently at a (units (unknown) date) rate of a 130. Post unknown) intubation and central line chest x-ray (unknown) (no (unknown) (unknown) D Dimer Stat (units (u nknown) date) unknown) (unknown) (no (unknown) (unknown) D-Dimer (<500) (units (unknown) date) ng/ml unknown) (unknown) (no (unknown) (unknown) D-Dimer 821 H (units ( unknown) date) (<500) ng/ml unknown) (unknown) (no (unknown) (unknown) : 1950 (units (unknown) date) Acct:[id number] unknown) (unknown) (no (unknown) (unknown) Date of Service: (units (unknown) date) 01/31/22 unknown) (unknown) (no (unknown) (unknown) Departure (units (unkn own) date) unknown) (unknown) (no (unknown) (unknown) Dictated by: Dwayne (units (unknown) date) Jody Meadows on unknown) 01/31/2022 at 20:08 ? ? (unknown) (no (unknown) (unknown) Dictated by: Dwayne (units (unknown) date) Jody Meadows on unknown) 01/31/2022 at 21:21 ? ? (unknown) (no (unknown) (unknown) Discharge Plan (units (unknown) date) unknown) (unknown) (no (unknown) (unknown) Discontinued (units (u nknown) date) Medications unknown) (unknown) (no (unknown) (unknown) Documented By: NR (units (unknown) date) unknown) (unknown) (no (unknown) (unknown) ECG Data (units (unkno wn) date) unknown) (unknown) (no (unknown) (unknown) ED Orders (units (unkn own) date) unknown) (unknown) (no (unknown) (unknown) EKG-12 Lead Stat (units (unknown) date) unknown) (unknown) (no (unknown) (unknown) ER Physician: (units ( unknown) date) Kyleigh Castellanos MD unknown) (unknown) (no (unknown) (unknown) Emergency Report (units (unknown) date) unknown) (unknown) (no (unknown) (unknown) Eos % (Auto) Not (units (unknown) date) Reportable unknown) (unknown) (no (unknown) (unknown) Eos % (Auto) (units (u nknown) date) unknown) (unknown) (no (unknown) (unknown) Esterase (units (unkno wn) date) unknown) (unknown) (no (unknown) (unknown) Estimated GFR (units ( unknown) date) (>60) mL/min unknown) (unknown) (no (unknown) (unknown) Estimated GFR 45 L (units (unknown) date) (>60) mL/min unknown) (unknown) (no (unknown) (unknown) Exam (units (unkno wn) date) unknown) (unknown) (no (unknown) (unknown) Extremities: No (units (unknown) date) trauma, well unknown) perfused (unknown) (no (unknown) (unknown) FINDINGS:? (units (unk nown) date) unknown) (unknown) (no (unknown) (unknown) Full and (units (unkno wn) date) symmetrical air unknown) movement, no respiratory distress appreciated (unknown) (no (unknown) (unknown) Gallbladder:? (units ( unknown) date) Unremarkable.? ? unknown) (unknown) (no (unknown) (unknown) General (units (unkno wn) date) unknown) (unknown) (no (unknown) (unknown) General: Acutely (units (unknown) date) ill-appearing, unknown) pale, significantly fatigued but will respond (unknown) (no (unknown) (unknown) Globulin (1.7-4.1) (units (unknown) date) g/dL unknown) (unknown) (no (unknown) (unknown) Globulin 3.4 (units (u nknown) date) (1.7-4.1) g/dL unknown) (unknown) (no (unknown) (unknown) Glucose (80-110) (units (unknown) date) mg/dL unknown) (unknown) (no (unknown) (unknown) Glucose 262 H (units ( unknown) date) (80-110) mg/dL unknown) (unknown) (no (unknown) (unknown) Goal directed (units ( unknown) date) therapy within 3 unknown) hours of septic shock or initial hypotension (unknown) (no (unknown) (unknown) Goal directed (units ( unknown) date) treatment unknown) (unknown) (no (unknown) (unknown) HEENT: Moist (units (u nknown) date) mucous membranes, unknown) normal sclera with reactive pupils, (unknown) (no (unknown) (unknown) HPI - General (units ( unknown) date) Adult unknown) (unknown) (no (unknown) (unknown) HPI narrative: (units (unknown) date) unknown) (unknown) (no (unknown) (unknown) Hct (41-53) % (units ( unknown) date) unknown) (unknown) (no (unknown) (unknown) Hct 38.2 L (41-53) (units (unknown) date) % unknown) (unknown) (no (unknown) (unknown) He has a history (units (unknown) date) of kidney stones unknown) and 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 No (units (unk nown) date) significant unknown) findings. (unknown) (no (unknown) (unknown) Hgb (13.5-17.5) (units (unknown) date) g/dL unknown) (unknown) (no (unknown) (unknown) Hgb 13.3 L (units (unk nown) date) (13.5-17.5) g/dL unknown) (unknown) (no (unknown) (unknown) History of Present (units (unknown) date) Illness unknown) (unknown) (no (unknown) (unknown) History of kidney (units (unknown) date) stones unknown) (unknown) (no (unknown) (unknown) Home Medications (units (unknown) date) unknown) (unknown) (no (unknown) (unknown) Hyperlipidemia (units (unknown) date) unknown) (unknown) (no (unknown) (unknown) Hypertension (units (u nknown) date) unknown) (unknown) (no (unknown) (unknown) IMPRESSION:? No (units (unknown) date) abscess found, no unknown) evidence of colitis or diverticulitis, or (unknown) (no (unknown) (unknown) IMPRESSION:? (units (u nknown) date) Reduced inspiratory unknown) volume, no acute disease when this factor is (unknown) (no (unknown) (unknown) INR (0.9-1.3) (units ( unknown) date) unknown) (unknown) (no (unknown) (unknown) INR 1.6 H (units (unkn own) date) (0.9-1.3) unknown) (unknown) (no (unknown) (unknown) Image quality:? (units (unknown) date) Excellent.? unknown) (unknown) (no (unknown) (unknown) Imaging Data (units (u nknown) date) unknown) (unknown) (no (unknown) (unknown) Initial Vital (units ( unknown) date) Signs unknown) (unknown) (no (unknown) (unknown) Initial Vital (units ( unknown) date) Signs: unknown) (unknown) (no (unknown) (unknown) Initial chest x-ray (units (unknown) date) does not suggest unknown) significant infiltrates or congestive heart (unknown) (no (unknown) (unknown) Initial (units (unkno wn) date) presumption was unknown) sepsis or developing sepsis. Fluid resuscitation with (unknown) (no (unknown) (unknown) Interpretation: (units (unknown) date) unknown) (unknown) (no (unknown) (unknown) [facility] (units (unknown) date) [address] [place] [address] Street unknown) [place] [address] (unknown) (no (unknown) (unknown) Kidney stones (units ( unknown) date) unknown) (unknown) (no (unknown) (unknown) Kidneys and (units (un known) date) Ureters:? 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 (unknown) (no (unknown) (unknown) Lab Data (units (unkno wn) date) unknown) (unknown) (no (unknown) (unknown) Lab Results (units (un known) date) unknown) (unknown) (no (unknown) (unknown) Label Comments: (units (unknown) date) unknown) (unknown) (no (unknown) (unknown) Labs: (units (unkno wn) date) unknown) (unknown) (no (unknown) (unknown) Lactate (0.7-2.1) (units (unknown) date) mmol/L unknown) (unknown) (no (unknown) (unknown) Lactate (Lactic (units (unknown) date) Acid) Stat unknown) (unknown) (no (unknown) (unknown) Lactate 3.0 H (units ( unknown) date) (0.7-2.1) mmol/L unknown) (unknown) (no (unknown) (unknown) Lactic elevated at (units (unknown) date) 3.0, significantly unknown) elevated procalcitonin, urine certainly (unknown) (no (unknown) (unknown) Last Admin: (units (un known) date) 01/31/22 20:17 unknown) Dose: 100 mls/hr (unknown) (no (unknown) (unknown) Last Admin: (units (un known) date) 01/31/22 20:17 unknown) Dose: 920.79 mls/hr (unknown) (no (unknown) (unknown) Last Admin: (units (un known) date) 01/31/22 22:05 unknown) Dose: 975 mg (unknown) (no (unknown) (unknown) Last Admin: (units (un known) date) 01/31/22 22:18 unknown) Dose: 10 mg (unknown) (no (unknown) (unknown) Last Infusion: (units (unknown) date) 01/31/22 21:10 unknown) Dose: 0 mls/hr (unknown) (no (unknown) (unknown) Last Titration: (units (unknown) date) 01/31/22 23:06 unknown) Dose: 20 mcg/kg/min, 11.049 mls/hr (unknown) (no (unknown) (unknown) Left axis (units (unkn own) date) deviation unknown) (unknown) (no (unknown) (unknown) Liver:? (units (unkno wn) date) Unremarkable.? ? unknown) (unknown) (no (unknown) (unknown) Lung bases:? (units (u nknown) date) Unremarkable. unknown) (unknown) (no (unknown) (unknown) Lungs and pleura:? (units (unknown) date) Lungs are clear.? unknown) No pleural effusions or pneumothorax.? (unknown) (no (unknown) (unknown) Lymph # (Auto) Not (units (unknown) date) Reportable unknown) (unknown) (no (unknown) (unknown) Lymph # (Auto) (units (unknown) date) unknown) (unknown) (no (unknown) (unknown) Lymph % (Auto) Not (units (unknown) date) Reportable unknown) (unknown) (no (unknown) (unknown) Lymph % (Auto) (units (unknown) date) unknown) (unknown) (no (unknown) (unknown) Lymphocytes % (units ( unknown) date) (Manual) (25-45) % unknown) (unknown) (no (unknown) (unknown) Lymphocytes % (units ( unknown) date) (Manual) 5.0 L unknown) (25-45) % (unknown) (no (unknown) (unknown) [id number] (units (unk nown) date) unknown) (unknown) (no (unknown) (unknown) MCH (26-34) PG (units (unknown) date) unknown) (unknown) (no (unknown) (unknown) MCH 28.5 (26-34) (units (unknown) date) PG unknown) (unknown) (no (unknown) (unknown) MCHC (30-36) % (units (unknown) date) unknown) (unknown) (no (unknown) (unknown) MCHC 34.8 (30-36) (units (unknown) date) % unknown) (unknown) (no (unknown) (unknown) MCV (80-100) fL (units (unknown) date) unknown) (unknown) (no (unknown) (unknown) MCV 81.8 (80-100) (units (unknown) date) fL unknown) (unknown) (no (unknown) (unknown) MDM Narrative (units ( unknown) date) unknown) (unknown) (no (unknown) (unknown) Measure peak (units (u nknown) date) expiratory flow unknown) ONCE (unknown) (no (unknown) (unknown) Mediastinum:? (units ( unknown) date) Mediastinal unknown) contours are normal.? Heart size is normal.? (unknown) (no (unknown) (unknown) Medical Decision (units (unknown) date) Making unknown) (unknown) (no (unknown) (unknown) Medical History (units (unknown) date) (Updated 01/31/22 @ unknown) 22:11 by Kyleigh Castellanos MD) (unknown) (no (unknown) (unknown) Medical decision (units (unknown) date) making narrative: unknown) (unknown) (no (unknown) (unknown) Medication (units (unk nown) date) Instructions unknown) Recorded Confirmed (unknown) (no (unknown) (unknown) Medication (units (unk nown) date) Instructions unknown) Recorded (unknown) (no (unknown) (unknown) Metoclopramide HCl (units (unknown) date) (Metoclopramide 10 unknown) Mg/2 Ml Inj) 10 mg IV NOW ONE (unknown) (no (unknown) (unknown) Metronidazole (units ( unknown) date) (Flagyl) 500 mg in unknown) 100 mls @ 100 mls/hr IV NOW ONE (unknown) (no (unknown) (unknown) Miscellaneous: No (units (unknown) date) hernias are seen. ? unknown) ? (unknown) (no (unknown) (unknown) [place] # (Auto) Not (units (unknown) date) Reportable unknown) (unknown) (no (unknown) (unknown) [place] # (Auto) (units ( unknown) date) unknown) (unknown) (no (unknown) (unknown) [place] % (Auto) Not (units (unknown) date) Reportable unknown) (unknown) (no (unknown) (unknown) [place] % (Auto) (units ( unknown) date) unknown) (unknown) (no (unknown) (unknown) Monocytes % (units (un known) date) (Manual) (2-11) % unknown) (unknown) (no (unknown) (unknown) Monocytes % (units (un known) date) (Manual) 1.0 L unknown) (2-11) % (unknown) (no (unknown) (unknown) Must include vital (units (unknown) date) signs, unknown) cardiopulmonary exam, capillary refill, (unknown) (no (unknown) (unknown) Narrative: (units (unk nown) date) unknown) (unknown) (no (unknown) (unknown) Neck: No JVD, (units ( unknown) date) supple unknown) (unknown) (no (unknown) (unknown) Neurologic: (units (un known) date) Globally weak but unknown) Grossly neurologically intact with no obvious (unknown) (no (unknown) (unknown) Neut % (Auto) Not (units (unknown) date) Reportable unknown) (unknown) (no (unknown) (unknown) Neut % (Auto) (units ( unknown) date) unknown) (unknown) (no (unknown) (unknown) Neutrophils # (units ( unknown) date) (Manual) unknown) ([id number]) /uL (unknown) (no (unknown) (unknown) Neutrophils # (units ( unknown) date) (Manual) 31233 H unknown) ([id number]) /uL (unknown) (no (unknown) (unknown) No Action (units (unkn own) date) unknown) (unknown) (no (unknown) (unknown) ONE; Protocol (units ( unknown) date) unknown) (unknown) (no (unknown) (unknown) Ordered: (units (unkno wn) date) unknown) (unknown) (no (unknown) (unknown) Orders (units (unkno wn) date) unknown) (unknown) (no (unknown) (unknown) Oxygen Delivery (units (unknown) date) Method 01/31/22 unknown) 19:06 (unknown) (no (unknown) (unknown) Oxygen Delivery (units (unknown) date) Method Room Air unknown) Room Air (unknown) (no (unknown) (unknown) Oxygen Delivery (units (unknown) date) Method unknown) (unknown) (no (unknown) (unknown) PELVIS: (units (unkno wn) date) unknown) (unknown) (no (unknown) (unknown) PT (10.1-12.7) (units (unknown) date) SECONDS unknown) (unknown) (no (unknown) (unknown) PT 18.9 H (units (unkn own) date) (10.1-12.7) SECONDS unknown) (unknown) (no (unknown) (unknown) Pancreas:? (units (unk nown) date) Unremarkable.? ? unknown) (unknown) (no (unknown) (unknown) Partial (units (unkno wn) date) Thromboplastin Time unknown) Stat (unknown) (no (unknown) (unknown) Patient History (units (unknown) date) unknown) (unknown) (no (unknown) (unknown) Patient: (units (unkno wn) date) Pascual Padilla Robert unknown) MR#: (unknown) (no (unknown) (unknown) Pelvic Nodes: No (units (unknown) date) enlarged lymph unknown) nodes.? (unknown) (no (unknown) (unknown) Pelvic Organs:? (units (unknown) date) Unremarkable.? ? unknown) (unknown) (no (unknown) (unknown) Penicillins (units (un known) date) Allergy Rash unknown) Verified 01/31/22 19:12 (unknown) (no (unknown) (unknown) Peritoneum:? No (units (unknown) date) abnormal unknown) intraperitoneal fluid.? No free air.? (unknown) (no (unknown) (unknown) Plt Count (units (unkn own) date) (150-400) X103/uL unknown) (unknown) (no (unknown) (unknown) Plt Count 156 (units ( unknown) date) (150-400) X103/uL unknown) (unknown) (no (unknown) (unknown) Point of care (units ( unknown) date) testing: unknown) (unknown) (no (unknown) (unknown) Potassium (units (unkn own) date) (3.4-5.1) mmol/L unknown) (unknown) (no (unknown) (unknown) Potassium 3.6 (units ( unknown) date) (3.4-5.1) mmol/L unknown) (unknown) (no (unknown) (unknown) Prescriptions: (units (unknown) date) unknown) (unknown) (no (unknown) (unknown) Previous Rx's (units ( unknown) date) unknown) (unknown) (no (unknown) (unknown) Procalcitonin (units ( unknown) date) (<0.5) ng/mL unknown) (unknown) (no (unknown) (unknown) Procalcitonin 4.70 (units (unknown) date) H (<0.5) ng/mL unknown) (unknown) (no (unknown) (unknown) Procalcitonin Stat (units (unknown) date) unknown) (unknown) (no (unknown) (unknown) Propofol (units (unkno wn) date) (Propofol) 1,000 mg unknown) in 100 mls @ 2.762 mls/hr IV TITRATE ANGI; Protocol (unknown) (no (unknown) (unknown) Prothrombin Time (units (unknown) date) INR Stat unknown) (unknown) (no (unknown) (unknown) Psych: (units (unkno wn) date) Cooperative, unknown) significant fatigue (unknown) (no (unknown) (unknown) Pulse Oximetry 100 (units (unknown) date) unknown) (unknown) (no (unknown) (unknown) Pulse Oximetry 81 (units (unknown) date) L unknown) (unknown) (no (unknown) (unknown) Pulse Oximetry 94 (units (unknown) date) unknown) (unknown) (no (unknown) (unknown) Pulse Oximetry 97 (units (unknown) date) 95 unknown) (unknown) (no (unknown) (unknown) Pulse Oximetry 97 (units (unknown) date) 96 unknown) (unknown) (no (unknown) (unknown) Pulse Oximetry 98 (units (unknown) date) 01/31/22 19:06 unknown) (unknown) (no (unknown) (unknown) Pulse Oximetry 98 (units (unknown) date) 95 unknown) (unknown) (no (unknown) (unknown) Pulse Oximetry 98 (units (unknown) date) 97 unknown) (unknown) (no (unknown) (unknown) Pulse Oximetry 99 (units (unknown) date) unknown) (unknown) (no (unknown) (unknown) Pulse Rate 117 H (units (unknown) date) 01/31/22 19:06 unknown) (unknown) (no (unknown) (unknown) Pulse Rate 117 H (units (unknown) date) 124 H unknown) (unknown) (no (unknown) (unknown) Pulse Rate 118 H (units (unknown) date) 67 unknown) (unknown) (no (unknown) (unknown) Pulse Rate 119 H (units (unknown) date) 120 H unknown) (unknown) (no (unknown) (unknown) Pulse Rate 119 H (units (unknown) date) unknown) (unknown) (no (unknown) (unknown) Pulse Rate 122 H (units (unknown) date) 116 H unknown) (unknown) (no (unknown) (unknown) Pulse Rate 122 H (units (unknown) date) unknown) (unknown) (no (unknown) (unknown) Pulse Rate 124 H (units (unknown) date) 139 H unknown) (unknown) (no (unknown) (unknown) Pulse Rate 143 H (units (unknown) date) unknown) (unknown) (no (unknown) (unknown) Pulse Rate 144 H (units (unknown) date) unknown) (unknown) (no (unknown) (unknown) QTC prolonged at (units (unknown) date) 583 milliseconds unknown) (unknown) (no (unknown) (unknown) Qualifiers: (units (un known) date) unknown) (unknown) (no (unknown) (unknown) RBC (4.5-5.9) (units ( unknown) date) X106/uL unknown) (unknown) (no (unknown) (unknown) RBC 4.66 (4.5-5.9) (units (unknown) date) X106/uL unknown) (unknown) (no (unknown) (unknown) RBC Morphology See (units (unknown) date) below unknown) (unknown) (no (unknown) (unknown) RBC Morphology (units (unknown) date) unknown) (unknown) (no (unknown) (unknown) RDW (11.6-14.8) % (units (unknown) date) unknown) (unknown) (no (unknown) (unknown) RDW 14.0 (units (unkno wn) date) (11.6-14.8) % unknown) (unknown) (no (unknown) (unknown) RT Consult Eval (units (unknown) date) and Treat Now unknown) (unknown) (no (unknown) (unknown) Radiologist's (units ( unknown) date) Impression: unknown) (unknown) (no (unknown) (unknown) Referrals: (units (unk nown) date) unknown) (unknown) (no (unknown) (unknown) Related Data (units (u nknown) date) unknown) (unknown) (no (unknown) (unknown) Remainder of (units (u nknown) date) complete review of unknown) systems is otherwise unremarkable except for (unknown) (no (unknown) (unknown) Respiratory Rate (units (unknown) date) 25 H 42 H unknown) (unknown) (no (unknown) (unknown) Respiratory Rate (units (unknown) date) 25 H unknown) (unknown) (no (unknown) (unknown) Respiratory Rate (units (unknown) date) 30 H unknown) (unknown) (no (unknown) (unknown) Respiratory Rate (units (unknown) date) 31 H unknown) (unknown) (no (unknown) (unknown) Respiratory Rate (units (unknown) date) 35 H 01/31/22 19:06 unknown) (unknown) (no (unknown) (unknown) Respiratory Rate (units (unknown) date) 35 H unknown) (unknown) (no (unknown) (unknown) Respiratory Rate (units (unknown) date) 37 H unknown) (unknown) (no (unknown) (unknown) Respiratory Rate (units (unknown) date) 39 H 41 H unknown) (unknown) (no (unknown) (unknown) Respiratory Rate (units (unknown) date) 40 H unknown) (unknown) (no (unknown) (unknown) Respiratory Rate (units (unknown) date) 43 H unknown) (unknown) (no (unknown) (unknown) Respiratory: Lungs (units (unknown) date) are clear to unknown) auscultation, no wheezing no rales no rhonchi. (unknown) (no (unknown) (unknown) Result diagrams: (units (unknown) date) unknown) (unknown) (no (unknown) (unknown) Review of Systems (units (unknown) date) unknown) (unknown) (no (unknown) (unknown) SARS-CoV-2 (PCR) (units (unknown) date) (Negative) unknown) (unknown) (no (unknown) (unknown) SARS-CoV-2 (PCR) (units (unknown) date) Negative (Negative) unknown) (unknown) (no (unknown) (unknown) Seg Neutrophils % (units (unknown) date) (38-70) % unknown) (unknown) (no (unknown) (unknown) Seg Neutrophils % (units (unknown) date) 82.0 H (38-70) % unknown) (unknown) (no (unknown) (unknown) Sepsis type: (units (u nknown) date) sepsis due to unknown) unspecified organism Sepsis acute organ dysfunction (unknown) (no (unknown) (unknown) Sepsis (units (unkno wn) date) unknown) (unknown) (no (unknown) (unknown) Septic Shock (units (u nknown) date) Criteria unknown) (unknown) (no (unknown) (unknown) Septic Shock (units (u nknown) date) Determination. the unknown) patient has been screened and (unknown) (no (unknown) (unknown) Severe Sepsis (units ( unknown) date) Criteria unknown) (unknown) (no (unknown) (unknown) Severe Sepsis (units ( unknown) date) Determination. the unknown) patient has been screened and (unknown) (no (unknown) (unknown) Signed By: (units (unk nown) date) unknown) (unknown) (no (unknown) (unknown) Sinus tachycardia (units (unknown) date) at a rate of 116 unknown) (unknown) (no (unknown) (unknown) Skin: Pale but (units (unknown) date) otherwise Warm and unknown) dry, no rashes (unknown) (no (unknown) (unknown) Smoking Status: (units (unknown) date) Never smoker unknown) (unknown) (no (unknown) (unknown) Social History (units (unknown) date) (Reviewed 01/31/22 unknown) @ 21:45 by Kyleigh Castellanos MD) (unknown) (no (unknown) (unknown) Sodium (137-145) (units (unknown) date) mmol/L unknown) (unknown) (no (unknown) (unknown) Sodium 135 L (units (u nknown) date) (137-145) mmol/L unknown) (unknown) (no (unknown) (unknown) Sodium Chloride (units (unknown) date) (Normal Saline unknown) 0.9%) 2,762.37 mls @ 920.79 mls/hr 30 ml/kg (unknown) (no (unknown) (unknown) Spleen:? (units (unkno wn) date) Unremarkable.? ? unknown) (unknown) (no (unknown) (unknown) Stated complaint: (units (unknown) date) Vomiting, Stomach unknown) cramps, SOB (unknown) (no (unknown) (unknown) Stomach and (units (un known) date) Bowel:? Stomach, unknown) small bowel loops, and colon are unremarkable.? (unknown) (no (unknown) (unknown) Stop: 01/31/22 (units (unknown) date) 20:06 unknown) (unknown) (no (unknown) (unknown) Stop: 01/31/22 (units (unknown) date) 21:04 unknown) (unknown) (no (unknown) (unknown) Stop: 01/31/22 (units (unknown) date) 21:42 unknown) (unknown) (no (unknown) (unknown) Stop: 01/31/22 (units (unknown) date) 22:13 unknown) (unknown) (no (unknown) (unknown) Stop: 01/31/22 (units (unknown) date) 22:50 unknown) (unknown) (no (unknown) (unknown) Stop: 01/31/22 (units (unknown) date) 23:01 unknown) (unknown) (no (unknown) (unknown) Stop: 02/01/22 (units (unknown) date) 04:48 unknown) (unknown) (no (unknown) (unknown) Substance Use (units ( unknown) date) Type: does not use unknown) (unknown) (no (unknown) (unknown) Subtle lateral ST (units (unknown) date) depression unknown) (unknown) (no (unknown) (unknown) Surgical changes (units (unknown) date) and devices:? unknown) None.? (unknown) (no (unknown) (unknown) Temperature 98.3 F (units (unknown) date) 01/31/22 19:06 unknown) (unknown) (no (unknown) (unknown) Temperature 98.3 F (units (unknown) date) unknown) (unknown) (no (unknown) (unknown) Temperature (units (un known) date) unknown) (unknown) (no (unknown) (unknown) The left (units (unkno wn) date) unknown) (unknown) (no (unknown) (unknown) Time Seen by (units (u nknown) date) Provider: 01/31/22 unknown) 19:43 (unknown) (no (unknown) (unknown) Time Septic Shock (units (unknown) date) diagnosed: [ ] unknown) (unknown) (no (unknown) (unknown) Total Bilirubin (units (unknown) date) (0.2-1.3) mg/dL unknown) (unknown) (no (unknown) (unknown) Total Bilirubin (units (unknown) date) 2.2 H (0.2-1.3) unknown) mg/dL (unknown) (no (unknown) (unknown) Total Counted 100 (units (unknown) date) unknown) (unknown) (no (unknown) (unknown) Total Counted (units ( unknown) date) unknown) (unknown) (no (unknown) (unknown) Total Creatine (units (unknown) date) Kinase (55-170) U/L unknown) (unknown) (no (unknown) (unknown) Total Creatine (units (unknown) date) Kinase 59 (55-170) unknown) U/L (unknown) (no (unknown) (unknown) Total Protein (units ( unknown) date) (6.3-8.2) g/dL unknown) (unknown) (no (unknown) (unknown) Total Protein 7.6 (units (unknown) date) (6.3-8.2) g/dL unknown) (unknown) (no (unknown) (unknown) Trop I [Troponin (units (unknown) date) I] Stat unknown) (unknown) (no (unknown) (unknown) Troponin + CK (units ( unknown) date) Cardiac Panel Stat unknown) (unknown) (no (unknown) (unknown) Troponin I (units (unk nown) date) (0.01-0.034) ng/mL unknown) (unknown) (no (unknown) (unknown) Troponin I 0.608 (units (unknown) date) H* (0.01-0.034) unknown) ng/mL (unknown) (no (unknown) (unknown) Troponin I 0.924 (units (unknown) date) H* (0.01-0.034) unknown) ng/mL (unknown) (no (unknown) (unknown) Troponin is (units (un known) date) elevated at 0.9-4. unknown) Priors are not available. He does not have a (unknown) (no (unknown) (unknown) Type 2 diabetes (units (unknown) date) mellitus unknown) (unknown) (no (unknown) (unknown) Ur Culture (units (unk nown) date) Indicated? Specimen unknown) cultured (unknown) (no (unknown) (unknown) Ur Culture (units (unk nown) date) Indicated? unknown) (unknown) (no (unknown) (unknown) Ur Leukocyte (units (u nknown) date) Esterase (NEGATIVE) unknown) (unknown) (no (unknown) (unknown) Ur Leukocyte (units (u nknown) date) Esterase 2+ H unknown) (NEGATIVE) (unknown) (no (unknown) (unknown) Ur Specific (units (un known) date) [place] unknown) (1.000-1.035) (unknown) (no (unknown) (unknown) Ur Specific (units (un known) date) [place] 1.010 unknown) (1.000-1.035) (unknown) (no (unknown) (unknown) Ur Squamous Epith (units (unknown) date) Cells (0-5/HPF) unknown) (unknown) (no (unknown) (unknown) Ur Squamous Epith (units (unknown) date) Cells None seen unknown) (0-5/HPF) (unknown) (no (unknown) (unknown) Urinalysis and (units (unknown) date) Microscopic Stat unknown) (unknown) (no (unknown) (unknown) Urine Appearance (units (unknown) date) Sl cloudy unknown) (unknown) (no (unknown) (unknown) Urine Appearance (units (unknown) date) unknown) (unknown) (no (unknown) (unknown) Urine Bacteria (units (unknown) date) (None) unknown) (unknown) (no (unknown) (unknown) Urine Bacteria (units (unknown) date) Many (>30) H (None) unknown) (unknown) (no (unknown) (unknown) Urine Bilirubin (units (unknown) date) (NEGATIVE) unknown) (unknown) (no (unknown) (unknown) Urine Bilirubin (units (unknown) date) Negative (NEGATIVE) unknown) (unknown) (no (unknown) (unknown) Urine Color Yellow (units (unknown) date) unknown) (unknown) (no (unknown) (unknown) Urine Color (units (un known) date) unknown) (unknown) (no (unknown) (unknown) Urine Culture Stat (units (unknown) date) unknown) (unknown) (no (unknown) (unknown) Urine Dip (units (unkn own) date) unknown) (unknown) (no (unknown) (unknown) Urine Glucose (UA) (units (unknown) date) (Negative) g/dL unknown) (unknown) (no (unknown) (unknown) Urine Glucose (UA) (units (unknown) date) Negative (Negative) unknown) g/dL (unknown) (no (unknown) (unknown) Urine Ketones (units ( unknown) date) (NEGATIVE) unknown) (unknown) (no (unknown) (unknown) Urine Ketones (units ( unknown) date) Negative (NEGATIVE) unknown) (unknown) (no (unknown) (unknown) Urine Nitrate (units ( unknown) date) (Negative) unknown) (unknown) (no (unknown) (unknown) Urine Nitrate (units ( unknown) date) Negative (Negative) unknown) (unknown) (no (unknown) (unknown) Urine Occult Blood (units (unknown) date) (Negative) unknown) (unknown) (no (unknown) (unknown) Urine Occult Blood (units (unknown) date) 1+ H (Negative) unknown) (unknown) (no (unknown) (unknown) Urine Protein (units ( unknown) date) (Negative) unknown) (unknown) (no (unknown) (unknown) Urine Protein 1+ H (units (unknown) date) (Negative) unknown) (unknown) (no (unknown) (unknown) Urine RBC (units (unkn own) date) (0-5/HPF) unknown) (unknown) (no (unknown) (unknown) Urine RBC 0-1/hpf (units (unknown) date) (0-5/HPF) unknown) (unknown) (no (unknown) (unknown) Urine Specific (units (unknown) date) [place] 1.02 unknown) (unknown) (no (unknown) (unknown) Urine Urobilinogen (units (unknown) date) (0.2) E.U./dL unknown) (unknown) (no (unknown) (unknown) Urine Urobilinogen (units (unknown) date) 0.2 (0.2) E.U./dL unknown) (unknown) (no (unknown) (unknown) Urine WBC (units (unkn own) date) (0-5/HPF) unknown) (unknown) (no (unknown) (unknown) Urine WBC (units (unkn own) date) 30-100/hpf H unknown) (0-5/HPF) (unknown) (no (unknown) (unknown) Urine pH (4.5-8.0) (units (unknown) date) unknown) (unknown) (no (unknown) (unknown) Urine pH 5.0 (units (u nknown) date) (4.5-8.0) unknown) (unknown) (no (unknown) (unknown) Ventral Wall: ? No (units (unknown) date) hernias.? unknown) (unknown) (no (unknown) (unknown) Vessels:? Aorta (units (unknown) date) and inferior vena unknown) cava are normal in size.? (unknown) (no (unknown) (unknown) Vital Signs - 8 hr (units (unknown) date) unknown) (unknown) (no (unknown) (unknown) Vital Signs (units (un known) date) unknown) (unknown) (no (unknown) (unknown) Vital signs: (units (u nknown) date) unknown) (unknown) (no (unknown) (unknown) WBC (4.5-11.0) (units (unknown) date) X103/uL unknown) (unknown) (no (unknown) (unknown) WBC 29.1 H (units (unk nown) date) (4.5-11.0) X103/uL unknown) (unknown) (no (unknown) (unknown) Was initially (units ( unknown) date) hypertensive is unknown) significantly tachycardic. Ultrasound for central (unknown) (no (unknown) (unknown) Within 3 hours (units (unknown) date) unknown) (unknown) (no (unknown) (unknown) Within 6 hours (if (units (unknown) date) continued unknown) hypotension after fluids or initial lactate >4) (unknown) (no (unknown) (unknown) XR chest 2V Stat (units (unknown) date) unknown) (unknown) (no (unknown) (unknown) [ ] 2 SIRS (units (unk ) date) Criteria met unknown) (unknown) (no (unknown) (unknown) [ ] 30ml/kg fluid (units (unknown) date) unknown) (unknown) (no (unknown) (unknown) [ ] ABW used (units (u nknown) date) unknown) (unknown) (no (unknown) (unknown) [ ] BP < 90 or MAP (units (unknown) date) <65, >40mm decrease unknown) from normal baseline (unknown) (no (unknown) (unknown) [ ] Creat > 2.0 (units (unknown) date) unknown) (unknown) (no (unknown) (unknown) [ ] DOES NOT meet (units (unknown) date) criteria for septic unknown) shock (unknown) (no (unknown) (unknown) [ ] DOES NOT meet (units (unknown) date) criteria for severe unknown) sepsis (unknown) (no (unknown) (unknown) [ ] DOES meet (units ( unknown) date) criteria for septic unknown) shock (unknown) (no (unknown) (unknown) [ ] Evidence of at (units (unknown) date) least 1 organ unknown) system dysfunction (unknown) (no (unknown) (unknown) [ ] IBW (33.6) (units (unknown) date) used due to BMI > unknown) 30 (unknown) (no (unknown) (unknown) [ ] Initiate (units (u nknown) date) vasopressor therapy unknown) if persistent hypotension after adequate fluid (unknown) (no (unknown) (unknown) [ ] RR >20 (units (unk nown) date) unknown) (unknown) (no (unknown) (unknown) [ ] SBP ,90 or MAP (units (unknown) date) , 65 unknown) (unknown) (no (unknown) (unknown) [ ] altered mental (units (unknown) date) status unknown) (unknown) (no (unknown) (unknown) [ ] documentation (units (unknown) date) of septic shock unknown) (unknown) (no (unknown) (unknown) [ ] lactic > 4 at (units (unknown) date) any time unknown) (unknown) (no (unknown) (unknown) [ ] lactic redrawn (units (unknown) date) within 6 hours if unknown) >2.0 (unknown) (no (unknown) (unknown) [ ] mechanical (units (unknown) date) ventilation unknown) (unknown) (no (unknown) (unknown) [ ] patient or (units (unknown) date) advocate declining unknown) fluid administration after shared decision (unknown) (no (unknown) (unknown) [ ] platelet count (units (unknown) date) < 100k unknown) (unknown) (no (unknown) (unknown) [ ] provider (units (u nknown) date) documentation of unknown) severe sepsis (unknown) (no (unknown) (unknown) [ ] repeat volume (units (unknown) date) status and tissue unknown) perfusion assessment documented after fluid (unknown) (no (unknown) (unknown) [ x ] DOES meet (units (unknown) date) criteria for severe unknown) sepsis (unknown) (no (unknown) (unknown) [ x ] Lactate > 2 (units (unknown) date) unknown) (unknown) (no (unknown) (unknown) [ x ] broad (units (un known) date) spectrum abx unknown) started (unknown) (no (unknown) (unknown) [ x ] fever or (units (unknown) date) hypothermia unknown) (unknown) (no (unknown) (unknown) [ x ] lactic acid (units (unknown) date) level checked unknown) (unknown) (no (unknown) (unknown) [ x ] (units (unkno wn) date) leukocytosis/leukop unknown) enia/bandemia (unknown) (no (unknown) (unknown) [ x] HR >90 (units (un known) date) unknown) (unknown) (no (unknown) (unknown) [Embedded Image (units (unknown) date) Not Available] unknown) (unknown) (no (unknown) (unknown) [x ] T. Bili > 2.0 (units (unknown) date) unknown) (unknown) (no (unknown) (unknown) [x ] bacterial (units (unknown) date) source of infection unknown) suspected and documented (unknown) (no (unknown) (unknown) [x ] blood cx (units ( unknown) date) drawn prior to abx unknown) (unknown) (no (unknown) (unknown) a incontinence (units (unknown) date) pad. He has not unknown) been having any diarrhea or constipation. He (unknown) (no (unknown) (unknown) a slight (units (unkno wn) date) unknown) (unknown) (no (unknown) (unknown) account. (units (unkno wn) date) unknown) (unknown) (no (unknown) (unknown) acute renal (units (un known) date) failure Acute renal unknown) failure type: unspecified Severe sepsis shock (unknown) (no (unknown) (unknown) administered. His (units (unknown) date) abdominal pain is unknown) significantly improved. He is still (unknown) (no (unknown) (unknown) alcohol intake (units (unknown) date) frequency: unknown) holidays/special occasions only (unknown) (no (unknown) (unknown) alcohol intake: (units (unknown) date) current unknown) (unknown) (no (unknown) (unknown) amlodipine 10 mg (units (unknown) date) tablet 10 mg PO unknown) DAILY 01/27/18 07/13/19 (unknown) (no (unknown) (unknown) amlodipine 10 mg (units (unknown) date) tablet unknown) (unknown) (no (unknown) (unknown) and normotensive (units (unknown) date) with oxygen unknown) saturations 99% on room air. (unknown) (no (unknown) (unknown) any significant (units (unknown) date) cough, chest pain, unknown) palpitations, lower extremity edema. He (unknown) (no (unknown) (unknown) appendicitis. (units ( unknown) date) unknown) (unknown) (no (unknown) (unknown) appropriate (units (un known) date) sedation. No unknown) significant debris or edema coming up the ET tube. (unknown) (no (unknown) (unknown) asymmetries or (units (unknown) date) abnormalities unknown) (unknown) (no (unknown) (unknown) been significantly (units (unknown) date) fatigued but is unknown) otherwise cognitively intact. (unknown) (no (unknown) (unknown) began with (units (unk nown) date) ceftriaxone and unknown) Flagyl thinking that this was a GI source. (unknown) (no (unknown) (unknown) bolus was (units (unkn own) date) completed at unknown) [Date/Time] (unknown) (no (unknown) (unknown) bolus (units (unkno wn) date) unknown) (unknown) (no (unknown) (unknown) by the bladder (units (unknown) date) outlet obstruction unknown) and chronic urinary retention. (unknown) (no (unknown) (unknown) capillary refill (units (unknown) date) and no evidence of unknown) hypotension. Findings and concerns are (unknown) (no (unknown) (unknown) chlorthalidone 50 (units (unknown) date) mg tablet 50 mg PO unknown) DAILY 01/27/18 07/13/19 (unknown) (no (unknown) (unknown) chlorthalidone 50 (units (unknown) date) mg tablet unknown) (unknown) (no (unknown) (unknown) collecting (units (unk nown) date) unknown) (unknown) (no (unknown) (unknown) degree Mya renal (units (unknown) date) edema.? A urinary unknown) tract stone, is not seen on the left. (unknown) (no (unknown) (unknown) exenatide (units (unkn own) date) microspheres 2 unknown) mg/0.85 2 mg SUBCUT QWEEK 07/05/19 07/13/19 (unknown) (no (unknown) (unknown) failure. Current (units (unknown) date) access is 2 20 unknown) gauge peripheral IVs (unknown) (no (unknown) (unknown) fatigue, overall (units (unknown) date) altered mental unknown) status, increasing abdominal pain. He denies (unknown) (no (unknown) (unknown) fenofibrate (units (un known) date) nanocrystallized unknown) 145 145 mg PO DAILY 07/05/19 07/13/19 (unknown) (no (unknown) (unknown) fenofibrate (units (un known) date) nanocrystallized unknown) 145 mg tablet (unknown) (no (unknown) (unknown) for such. He is (units (unknown) date) not complaining of unknown) chest pain. Will repeat. (unknown) (no (unknown) (unknown) has been passing (units (unknown) date) gas. Reports no unknown) significant headache. They report that he has (unknown) (no (unknown) (unknown) history of known (units (unknown) date) coronary disease unknown) but does have a all appropriate risk factors (unknown) (no (unknown) (unknown) household members: (units (unknown) date) spouse unknown) (unknown) (no (unknown) (unknown) hydronephrosis or (units (unknown) date) unknown) (unknown) (no (unknown) (unknown) hyperlipidemia, (units (unknown) date) prior kidney stones unknown) presents with 12 hours of increasing fevers, (unknown) (no (unknown) (unknown) infuse over 3 hr (units (unknown) date) (2762.37 ml) IV NOW unknown) ONE (unknown) (no (unknown) (unknown) insulin glargine (units (unknown) date) 100 unit/mL (3 26 unknown) units SUBCUT DAILY 01/27/18 07/13/19 (unknown) (no (unknown) (unknown) insulin glargine (units (unknown) date) 100 unit/mL (3 mL) unknown) insulin pen (unknown) (no (unknown) (unknown) is placed. Urine (units (unknown) date) does look acutely unknown) infected. (unknown) (no (unknown) (unknown) kidney demonstrates (units (unknown) date) slight prominence unknown) of the central renal collecting system and (unknown) (no (unknown) (unknown) levofloxacin [From (units (unknown) date) Levaquin] Allergy unknown) Rash Verified 01/31/22 19:12 (unknown) (no (unknown) (unknown) line placement (units (unknown) date) shows no evidence unknown) of volume depletion. He is given 5 mg of IV (unknown) (no (unknown) (unknown) looks like a (units (u nknown) date) urinary tract unknown) infection. In the setting of acute urinary (unknown) (no (unknown) (unknown) losartan 100 mg (units (unknown) date) tablet 100 mg PO unknown) DAILY 01/27/18 07/13/19 (unknown) (no (unknown) (unknown) losartan 100 mg (units (unknown) date) tablet unknown) (unknown) (no (unknown) (unknown) mL subcutaneous (units (unknown) date) auto-injector unknown) (unknown) (no (unknown) (unknown) mL) subcutaneous (units (unknown) date) pen unknown) (unknown) (no (unknown) (unknown) making (units (unkno wn) date) conversation unknown) (unknown) (no (unknown) (unknown) metformin 500 mg (units (unknown) date) tablet 500 mg PO unknown) BID 01/27/18 07/13/19 (unknown) (no (unknown) (unknown) metformin 500 mg (units (unknown) date) tablet unknown) (unknown) (no (unknown) (unknown) metoprolol with (units (unknown) date) his rate coming unknown) down from a sinus tach in the 160 range to the (unknown) (no (unknown) (unknown) mg tablet (units (unkn own) date) unknown) (unknown) (no (unknown) (unknown) minor prominence (units (unknown) date) of the renal unknown) collecting system on the left without obvious (unknown) (no (unknown) (unknown) mondays (units (unkno wn) date) unknown) (unknown) (no (unknown) (unknown) no flank pain (units ( unknown) date) unknown) (unknown) (no (unknown) (unknown) not (units (unkno wn) date) unknown) (unknown) (no (unknown) (unknown) of oxygen. Given (units (unknown) date) Reglan. With unknown) prolonged QT I do not want to use Zofran. (unknown) (no (unknown) (unknown) organism (units (unkno wn) date) unknown) (unknown) (no (unknown) (unknown) oxycodone 5 mg (units (unknown) date) capsule 5 mg PO Q4H unknown) PRN pain #14 caps 07/13/19 (unknown) (no (unknown) (unknown) oxycodone 5 mg (units (unknown) date) capsule unknown) (unknown) (no (unknown) (unknown) pain for further (units (unknown) date) evaluation. unknown) Tachycardic, tachypneic, afebrile on presentation (unknown) (no (unknown) (unknown) peripheral pulse (units (unknown) date) evaluation, skin unknown) exam (unknown) (no (unknown) (unknown) pigtail right (units ( unknown) date) ureteral stent unknown) without hydronephrosis or hydroureter. Urine (unknown) (no (unknown) (unknown) pigtail (units (unkno wn) date) unknown) (unknown) (no (unknown) (unknown) prior to (units (unkno wn) date) determining acuity unknown) of hospital needs for admission. (unknown) (no (unknown) (unknown) retained (units (unkno wn) date) calculus.? On the unknown) left there is mild prominence of the central renal (unknown) (no (unknown) (unknown) retention, pigtail (units (unknown) date) catheter still in unknown) place and mild prominence of the collecting (unknown) (no (unknown) (unknown) reviewed with the (units (unknown) date) patient and his unknown) daughter. Will wait to see repeat troponin (unknown) (no (unknown) (unknown) right ureteral (units (unknown) date) stent.? There is no unknown) right-sided hydronephrosis or hydroureter.? (unknown) (no (unknown) (unknown) rosuvastatin 40 mg (units (unknown) date) tablet 40 mg PO unknown) DAILY 07/05/19 07/13/19 (unknown) (no (unknown) (unknown) rosuvastatin 40 mg (units (unknown) date) tablet unknown) (unknown) (no (unknown) (unknown) sample is obtained (units (unknown) date) and 1725 cc of unknown) urine are initially drained. Ramírez catheter (unknown) (no (unknown) (unknown) saturations are (units (unknown) date) dropping slightly unknown) 87% with a good waveform. He started on 2 L (unknown) (no (unknown) (unknown) saturations. (units (u nknown) date) Patient is moved to unknown) room 1 intubated with central line placed. (unknown) (no (unknown) (unknown) seen. (units (unkno wn) date) unknown) (unknown) (no (unknown) (unknown) showing signs of (units (unknown) date) good peripheral unknown) perfusion with warm extremities with good (unknown) (no (unknown) (unknown) shows flash (units (un known) date) pulmonary edema unknown) (unknown) (no (unknown) (unknown) signs of (units (unkno wn) date) obstruction. unknown) (unknown) (no (unknown) (unknown) states that he is (units (unknown) date) able to void but it unknown) is only intervals and he frequently wears (unknown) (no (unknown) (unknown) status: with acute (units (unknown) date) organ dysfunction unknown) Severe sepsis acute organ dysfunction type: (unknown) (no (unknown) (unknown) status: without (units (unknown) date) septic shock unknown) Qualified Code(s): A41.9 - Sepsis, unspecified (unknown) (no (unknown) (unknown) system but an (units (u nknown) date) obstructive urinary unknown) tract stone more distally within the ureter is (unknown) (no (unknown) (unknown) system on the (units ( unknown) date) right without unknown) evidence of stone urology will be consult today. (unknown) (no (unknown) (unknown) taken into (units (unk nown) date) unknown) (unknown) (no (unknown) (unknown) tamsulosin 0.4 mg (units (unknown) date) capsule 0.4 mg PO unknown) DAILY #60 caps 07/13/19 (unknown) (no (unknown) (unknown) tamsulosin 0.4 mg (units (unknown) date) capsule unknown) (unknown) (no (unknown) (unknown) that included in (units (unknown) date) the HPI. unknown) (unknown) (no (unknown) (unknown) to direct (units (unkn own) date) questions unknown) (unknown) (no (unknown) (unknown) unremarkable.? (units (unknown) date) unknown) Result panel 21 (unknown) (no (unknown) (unknown) (no value) (units (unk nown) date) unknown) (unknown) (no (unknown) (unknown) (Bydureon BCise) (units (unknown) date) unknown) (unknown) (no (unknown) (unknown) 0.4 mg PO DAILY (units (unknown) date) Qty: 60 0RF unknown) (unknown) (no (unknown) (unknown) 10 mg PO DAILY (units (unknown) date) unknown) (unknown) (no (unknown) (unknown) 01/31/22 01/31/22 (units (unknown) date) 01/31/22 unknown) Range/Units (unknown) (no (unknown) (unknown) 01/31/22 19:24 (units (unknown) date) unknown) (unknown) (no (unknown) (unknown) 01/31/22 20:00 (units (unknown) date) unknown) (unknown) (no (unknown) (unknown) 01/31/22 20:02 (units (unknown) date) unknown) (unknown) (no (unknown) (unknown) 01/31/22 20:03 (units (unknown) date) unknown) (unknown) (no (unknown) (unknown) 01/31/22 20:14 (units (unknown) date) unknown) (unknown) (no (unknown) (unknown) 01/31/22 20:28 (units (unknown) date) unknown) (unknown) (no (unknown) (unknown) 01/31/22 22:13 (units (unknown) date) unknown) (unknown) (no (unknown) (unknown) 01/31/22 22:31 (units (unknown) date) unknown) (unknown) (no (unknown) (unknown) 01/31/22 (units (unkno wn) date) unknown) (unknown) (no (unknown) (unknown) 100 mg PO DAILY (units (unknown) date) unknown) (unknown) (no (unknown) (unknown) 1000pm patient is (units (unknown) date) re-evaluated. He is unknown) having fever and rigors and Tylenol as (unknown) (no (unknown) (unknown) 1015pm patient is (units (unknown) date) having an episode unknown) of emesis. Currently afebrile. Oxygen (unknown) (no (unknown) (unknown) 1055 Acute (units (unk nown) date) deterioration with unknown) severe respiratory strip distress, dropping (unknown) (no (unknown) (unknown) 1105 (units (unkno wn) date) unknown) (unknown) (no (unknown) (unknown) 130 range. Blood (units (unknown) date) pressure was unknown) initially 200/110 and is now down to 125/30 with (unknown) (no (unknown) (unknown) 145 mg PO DAILY (units (unknown) date) unknown) (unknown) (no (unknown) (unknown) 19:06 01/31/22 (units (unknown) date) unknown) (unknown) (no (unknown) (unknown) 19:19 01/31/22 (units (unknown) date) unknown) (unknown) (no (unknown) (unknown) 19:20 01/31/22 (units (unknown) date) unknown) (unknown) (no (unknown) (unknown) 19:20 (units (unkno wn) date) unknown) (unknown) (no (unknown) (unknown) 19:30 01/31/22 (units (unknown) date) unknown) (unknown) (no (unknown) (unknown) 19:30 (units (unkno wn) date) unknown) (unknown) (no (unknown) (unknown) 2 mg SUBCUT QWEEK (units (unknown) date) unknown) (unknown) (no (unknown) (unknown) 20:00 01/31/22 (units (unknown) date) unknown) (unknown) (no (unknown) (unknown) 20:00 20:00 20:00 (units (unknown) date) unknown) (unknown) (no (unknown) (unknown) 20:14 22:13 22:13 (units (unknown) date) unknown) (unknown) (no (unknown) (unknown) 20:30 01/31/22 (units (unknown) date) unknown) (unknown) (no (unknown) (unknown) 20:30 (units (unkno wn) date) unknown) (unknown) (no (unknown) (unknown) 20:45 01/31/22 (units (unknown) date) unknown) (unknown) (no (unknown) (unknown) 21:07 (units (unkno wn) date) unknown) (unknown) (no (unknown) (unknown) 21:11 01/31/22 (units (unknown) date) unknown) (unknown) (no (unknown) (unknown) 21:15 01/31/22 (units (unknown) date) unknown) (unknown) (no (unknown) (unknown) 21:30 01/31/22 (units (unknown) date) unknown) (unknown) (no (unknown) (unknown) 21:30 (units (unkno wn) date) unknown) (unknown) (no (unknown) (unknown) 21:46 01/31/22 (units (unknown) date) unknown) (unknown) (no (unknown) (unknown) 21:46 (units (unkno wn) date) unknown) (unknown) (no (unknown) (unknown) 22:00 01/31/22 (units (unknown) date) unknown) (unknown) (no (unknown) (unknown) 22:05 (units (unkno wn) date) unknown) (unknown) (no (unknown) (unknown) 22:15 (units (unkno wn) date) unknown) (unknown) (no (unknown) (unknown) 26 units subcut (units (unknown) date) DAILY unknown) (unknown) (no (unknown) (unknown) 30 particular was (units (unknown) date) initiated. He is unknown) allergic to penicillin so rather than Zosyn (unknown) (no (unknown) (unknown) 40 mg PO DAILY (units (unknown) date) unknown) (unknown) (no (unknown) (unknown) 5 mg PO Q4H PRN (units (unknown) date) (Reason: pain) Qty: unknown) 14 0RF (unknown) (no (unknown) (unknown) 50 mg PO DAILY (units (unknown) date) unknown) (unknown) (no (unknown) (unknown) 500 mg PO BID (units ( unknown) date) unknown) (unknown) (no (unknown) (unknown) 71-year-old (units (un known) date) gentleman presents unknown) acutely ill, febrile pale with severe abdominal (unknown) (no (unknown) (unknown) 71-year-old (units (un known) date) gentleman with unknown) history of hypertension, type 2 diabetes, (unknown) (no (unknown) (unknown) ? 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 (unknown) (no (unknown) (unknown) ABDOMEN: (units (unkno wn) date) unknown) (unknown) (no (unknown) (unknown) ALT (<50) IU/L (units (unknown) date) unknown) (unknown) (no (unknown) (unknown) ALT 16 (<50) IU/L (units (unknown) date) unknown) (unknown) (no (unknown) (unknown) APTT (26-36) (units (u nknown) date) SECONDS unknown) (unknown) (no (unknown) (unknown) APTT 31 (26-36) (units (unknown) date) SECONDS unknown) (unknown) (no (unknown) (unknown) AST (17-59) IU/L (units (unknown) date) unknown) (unknown) (no (unknown) (unknown) AST 31 (17-59) (units (unknown) date) IU/L unknown) (unknown) (no (unknown) (unknown) Abdomen: Mild (units ( unknown) date) distention, diffuse unknown) abdominal pain without rebound or guarding, (unknown) (no (unknown) (unknown) Abdominal Nodes:? (units (unknown) date) No retroperitoneal unknown) or mesenteric adenopathy by size criteria.? (unknown) (no (unknown) (unknown) Acetaminophen (units ( unknown) date) (Acetaminophen 325 unknown) Mg Tablet) 975 mg PO NOW ONE (unknown) (no (unknown) (unknown) Acute kidney (units (u nknown) date) injury with unknown) creatinine increased from 1.3-1.6. Likely compounded (unknown) (no (unknown) (unknown) Acute (units (unkno wn) date) pyelonephritis, unknown) Benign prostatic hyperplasia, Acute urinary retention (unknown) (no (unknown) (unknown) Additional (units (unk nown) date) Information: unknown) (unknown) (no (unknown) (unknown) Admin: 01/31/22 (units (unknown) date) 20:13 Dose: 200 unknown) mls/hr (unknown) (no (unknown) (unknown) Adrenal Glands:? (units (unknown) date) Unremarkable.? ? unknown) (unknown) (no (unknown) (unknown) Age/Sex: 71 / M (units (unknown) date) unknown) (unknown) (no (unknown) (unknown) Albumin (3.5-5.0) (units (unknown) date) g/dL unknown) (unknown) (no (unknown) (unknown) Albumin 4.2 (units (un known) date) (3.5-5.0) g/dL unknown) (unknown) (no (unknown) (unknown) Albumin/Globulin (units (unknown) date) Ratio (1.0-2.8) unknown) (unknown) (no (unknown) (unknown) Albumin/Globulin (units (unknown) date) Ratio 1.2 (1.0-2.8) unknown) (unknown) (no (unknown) (unknown) Alkaline (units (unkno wn) date) Phosphatase unknown) (38-126) U/L (unknown) (no (unknown) (unknown) Alkaline (units (unkno wn) date) Phosphatase 66 unknown) (38-126) U/L (unknown) (no (unknown) (unknown) Allergies (units (unkn own) date) unknown) (unknown) (no (unknown) (unknown) Allergy/AdvReac (units (unknown) date) Type Severity unknown) Reaction Status Date / Time (unknown) (no (unknown) (unknown) Amiodarone HCl (units (unknown) date) (Amiodarone 150 unknown) Mg/3 Ml Vial) 300 mg IV NOW ONE (unknown) (no (unknown) (unknown) Amiodarone (units (unk nown) date) HCl/Dextrose unknown) (Nexterone) 360 mg in 200 mls @ 33.333 mls/hr IV NOW (unknown) (no (unknown) (unknown) Anisocytosis 1+ H (units (unknown) date) unknown) (unknown) (no (unknown) (unknown) Anisocytosis (units (u nknown) date) unknown) (unknown) (no (unknown) (unknown) 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, unknown) Ramírez catheter now in place (unknown) (no (unknown) (unknown) BUN (9-20) mg/dL (units (unknown) date) unknown) (unknown) (no (unknown) (unknown) BUN 22 H (9-20) (units (unknown) date) mg/dL unknown) (unknown) (no (unknown) (unknown) BUN/Creatinine (units (unknown) date) Ratio (6-22) unknown) (unknown) (no (unknown) (unknown) BUN/Creatinine (units (unknown) date) Ratio 13.8 (6-22) unknown) (unknown) (no (unknown) (unknown) Band Neutrophils % (units (unknown) date) (3-7) % unknown) (unknown) (no (unknown) (unknown) Band Neutrophils % (units (unknown) date) 12.0 H (3-7) % unknown) (unknown) (no (unknown) (unknown) Baso # (Auto) Not (units (unknown) date) Reportable unknown) (unknown) (no (unknown) (unknown) Baso # (Auto) (units ( unknown) date) unknown) (unknown) (no (unknown) (unknown) Baso % (Auto) Not (units (unknown) date) Reportable unknown) (unknown) (no (unknown) (unknown) Baso % (Auto) (units ( unknown) date) unknown) (unknown) (no (unknown) (unknown) Bedside Urine (units ( unknown) date) Bilirubin - unknown) Negative (unknown) (no (unknown) (unknown) Bedside Urine (units ( unknown) date) Glucose Negative unknown) (unknown) (no (unknown) (unknown) Bedside Urine (units ( unknown) date) Ketone - Negative unknown) (unknown) (no (unknown) (unknown) Bedside Urine (units ( unknown) date) Leukocytes + 70 unknown) (unknown) (no (unknown) (unknown) Bedside Urine (units ( unknown) date) Nitrite - Negative unknown) (unknown) (no (unknown) (unknown) Bedside Urine (units ( unknown) date) Occult Blood +/ unknown) (unknown) (no (unknown) (unknown) Bedside Urine (units ( unknown) date) Protein + 30 unknown) (unknown) (no (unknown) (unknown) Bedside Urine (units ( unknown) date) Urobilinogen - unknown) Negative (unknown) (no (unknown) (unknown) Bedside Urine pH 6 (units (unknown) date) unknown) (unknown) (no (unknown) (unknown) Biliary ducts:? (units (unknown) date) Unremarkable.? ? unknown) (unknown) (no (unknown) (unknown) Bladder:? (units (unkn own) date) Unremarkable.? ? unknown) (unknown) (no (unknown) (unknown) Blood Culture Stat (units (unknown) date) unknown) (unknown) (no (unknown) (unknown) Blood Pressure (units (unknown) date) 127/80 unknown) (unknown) (no (unknown) (unknown) Blood Pressure (units (unknown) date) 132/79 unknown) (unknown) (no (unknown) (unknown) Blood Pressure (units (unknown) date) 134/75 10 unknown) 19:06 (unknown) (no (unknown) (unknown) Blood Pressure (units (unknown) date) 134/75 139/80 unknown) (unknown) (no (unknown) (unknown) Blood Pressure (units (unknown) date) 136/78 unknown) (unknown) (no (unknown) (unknown) Blood Pressure (units (unknown) date) 137/76 unknown) (unknown) (no (unknown) (unknown) Blood Pressure (units (unknown) date) 138/78 146/84 H unknown) (unknown) (no (unknown) (unknown) Blood Pressure (units (unknown) date) 150/100 H unknown) (unknown) (no (unknown) (unknown) Blood Pressure (units (unknown) date) 153/77 H 128/76 unknown) (unknown) (no (unknown) (unknown) Blood Pressure (units (unknown) date) unknown) (unknown) (no (unknown) (unknown) Bones and chest (units (unknown) date) wall:? No unknown) suspicious bony abnormalities.? Soft tissues appear (unknown) (no (unknown) (unknown) Bones:? (units (unkno wn) date) Unremarkable.? ? unknown) (unknown) (no (unknown) (unknown) Bydureon BCise 2 (units (unknown) date) mg/0.85 mL unknown) auto-injector (unknown) (no (unknown) (unknown) CK-MB (CK-2) Rel (units (unknown) date) Index TNP unknown) (unknown) (no (unknown) (unknown) CK-MB (CK-2) Rel (units (unknown) date) Index unknown) (unknown) (no (unknown) (unknown) CK-MB (CK-2) TNP (units (unknown) date) unknown) (unknown) (no (unknown) (unknown) CK-MB (CK-2) (units (u nknown) date) unknown) (unknown) (no (unknown) (unknown) COVID19 -Nasal (units (unknown) date) RAPID/Pre-Proc Stat unknown) (unknown) (no (unknown) (unknown) CT abdomen pelvis (units (unknown) date) w con Stat unknown) (unknown) (no (unknown) (unknown) CT scan - (units (unkn own) date) abdomen/pelvis: unknown) (unknown) (no (unknown) (unknown) CT scan does not (units (unknown) date) suggest acute unknown) abscess, diverticulitis or appendicitis. Some (unknown) (no (unknown) (unknown) Calcium (8.4-10.2) (units (unknown) date) mg/dL unknown) (unknown) (no (unknown) (unknown) Calcium 8.1 L (units ( unknown) date) (8.4-10.2) mg/dL unknown) (unknown) (no (unknown) (unknown) Carbon Dioxide (units (unknown) date) (22-32) mmol/L unknown) (unknown) (no (unknown) (unknown) Carbon Dioxide 23 (units (unknown) date) (22-32) mmol/L unknown) (unknown) (no (unknown) (unknown) Cardiac: (units (unkno wn) date) Tachycardic without unknown) murmurs (unknown) (no (unknown) (unknown) Ceftriaxone Sodium (units (unknown) date) 2,000 mg/ (Sodium unknown) Chloride) 100 mls @ 200 mls/hr IV NOW ONE (unknown) (no (unknown) (unknown) Chest [XR chest (units (unknown) date) 1V] Stat unknown) (unknown) (no (unknown) (unknown) Chest x-ray: (units (u nknown) date) unknown) (unknown) (no (unknown) (unknown) Chief complaint: (units (unknown) date) Abdominal Pain unknown) (unknown) (no (unknown) (unknown) Chloride (98-107) (units (unknown) date) mmol/L unknown) (unknown) (no (unknown) (unknown) Chloride 96 L (units ( unknown) date) (98-107) mmol/L unknown) (unknown) (no (unknown) (unknown) Jillian Rosales, (units (unknown) date) MD [Primary Care unknown) Provider] (unknown) (no (unknown) (unknown) Clinical (units (unkno wn) date) Impression: unknown) (unknown) (no (unknown) (unknown) Clinical reason (units (unknown) date) for NOT initiating unknown) fluid bolus: (unknown) (no (unknown) (unknown) Complete Blood (units (unknown) date) Count AUTO DIFF unknown) Stat (unknown) (no (unknown) (unknown) Comprehensive (units ( unknown) date) Metabolic Panel unknown) Stat (unknown) (no (unknown) (unknown) Course (units (unkno wn) date) unknown) (unknown) (no (unknown) (unknown) Creatinine (units (unk nown) date) (0.66-1.25) mg/dL unknown) (unknown) (no (unknown) (unknown) Creatinine 1.60 H (units (unknown) date) (0.66-1.25) mg/dL unknown) (unknown) (no (unknown) (unknown) Currently at a (units (unknown) date) rate of a 130. Post unknown) intubation and central line chest x-ray (unknown) (no (unknown) (unknown) D Dimer Stat (units (u nknown) date) unknown) (unknown) (no (unknown) (unknown) D-Dimer (<500) (units (unknown) date) ng/ml unknown) (unknown) (no (unknown) (unknown) D-Dimer 821 H (units ( unknown) date) (<500) ng/ml unknown) (unknown) (no (unknown) (unknown) : 1950 (units (unknown) date) Acct:[id number] unknown) (unknown) (no (unknown) (unknown) Date of Service: (units (unknown) date) 01/31/22 unknown) (unknown) (no (unknown) (unknown) Departure (units (unkn own) date) unknown) (unknown) (no (unknown) (unknown) Dictated by: Dwayne (units (unknown) date) Jody Meadows on unknown) 01/31/2022 at 20:08 ? ? (unknown) (no (unknown) (unknown) Dictated by: Dwayne (units (unknown) date) Jody Meadows on unknown) 01/31/2022 at 21:21 ? ? (unknown) (no (unknown) (unknown) Discharge Plan (units (unknown) date) unknown) (unknown) (no (unknown) (unknown) Discontinued (units (u nknown) date) Medications unknown) (unknown) (no (unknown) (unknown) Documented By: NR (units (unknown) date) unknown) (unknown) (no (unknown) (unknown) ECG Data (units (unkno wn) date) unknown) (unknown) (no (unknown) (unknown) ED Orders (units (unkn own) date) unknown) (unknown) (no (unknown) (unknown) EKG-12 Lead Stat (units (unknown) date) unknown) (unknown) (no (unknown) (unknown) ER Physician: (units ( unknown) date) Kyleigh Castellanos MD unknown) (unknown) (no (unknown) (unknown) Emergency Report (units (unknown) date) unknown) (unknown) (no (unknown) (unknown) Eos % (Auto) Not (units (unknown) date) Reportable unknown) (unknown) (no (unknown) (unknown) Eos % (Auto) (units (u nknown) date) unknown) (unknown) (no (unknown) (unknown) Esterase (units (unkno wn) date) unknown) (unknown) (no (unknown) (unknown) Estimated GFR (units ( unknown) date) (>60) mL/min unknown) (unknown) (no (unknown) (unknown) Estimated GFR 45 L (units (unknown) date) (>60) mL/min unknown) (unknown) (no (unknown) (unknown) Exam (units (unkno wn) date) unknown) (unknown) (no (unknown) (unknown) Extremities: No (units (unknown) date) trauma, well unknown) perfused (unknown) (no (unknown) (unknown) FINDINGS:? (units (unk nown) date) unknown) (unknown) (no (unknown) (unknown) Full and (units (unkno wn) date) symmetrical air unknown) movement, no respiratory distress appreciated (unknown) (no (unknown) (unknown) Gallbladder:? (units ( unknown) date) Unremarkable.? ? unknown) (unknown) (no (unknown) (unknown) General (units (unkno wn) date) unknown) (unknown) (no (unknown) (unknown) General: Acutely (units (unknown) date) ill-appearing, unknown) pale, significantly fatigued but will respond (unknown) (no (unknown) (unknown) Globulin (1.7-4.1) (units (unknown) date) g/dL unknown) (unknown) (no (unknown) (unknown) Globulin 3.4 (units (u nknown) date) (1.7-4.1) g/dL unknown) (unknown) (no (unknown) (unknown) Glucose (80-110) (units (unknown) date) mg/dL unknown) (unknown) (no (unknown) (unknown) Glucose 262 H (units ( unknown) date) (80-110) mg/dL unknown) (unknown) (no (unknown) (unknown) Goal directed (units ( unknown) date) therapy within 3 unknown) hours of septic shock or initial hypotension (unknown) (no (unknown) (unknown) Goal directed (units ( unknown) date) treatment unknown) (unknown) (no (unknown) (unknown) HEENT: Moist (units (u nknown) date) mucous membranes, unknown) normal sclera with reactive pupils, (unknown) (no (unknown) (unknown) HPI - General (units ( unknown) date) Adult unknown) (unknown) (no (unknown) (unknown) HPI narrative: (units (unknown) date) unknown) (unknown) (no (unknown) (unknown) Hct (41-53) % (units ( unknown) date) unknown) (unknown) (no (unknown) (unknown) Hct 38.2 L (41-53) (units (unknown) date) % unknown) (unknown) (no (unknown) (unknown) He has a history (units (unknown) date) of kidney stones unknown) and 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 No (units (unk nown) date) significant unknown) findings. (unknown) (no (unknown) (unknown) Hgb (13.5-17.5) (units (unknown) date) g/dL unknown) (unknown) (no (unknown) (unknown) Hgb 13.3 L (units (unk nown) date) (13.5-17.5) g/dL unknown) (unknown) (no (unknown) (unknown) History of Present (units (unknown) date) Illness unknown) (unknown) (no (unknown) (unknown) History of kidney (units (unknown) date) stones unknown) (unknown) (no (unknown) (unknown) Home Medications (units (unknown) date) unknown) (unknown) (no (unknown) (unknown) Hyperlipidemia (units (unknown) date) unknown) (unknown) (no (unknown) (unknown) Hypertension (units (u nknown) date) unknown) (unknown) (no (unknown) (unknown) IMPRESSION:? No (units (unknown) date) abscess found, no unknown) evidence of colitis or diverticulitis, or (unknown) (no (unknown) (unknown) IMPRESSION:? (units (u nknown) date) Reduced inspiratory unknown) volume, no acute disease when this factor is (unknown) (no (unknown) (unknown) INR (0.9-1.3) (units ( unknown) date) unknown) (unknown) (no (unknown) (unknown) INR 1.6 H (units (unkn own) date) (0.9-1.3) unknown) (unknown) (no (unknown) (unknown) Image quality:? (units (unknown) date) Excellent.? unknown) (unknown) (no (unknown) (unknown) Imaging Data (units (u nknown) date) unknown) (unknown) (no (unknown) (unknown) Initial Vital (units ( unknown) date) Signs unknown) (unknown) (no (unknown) (unknown) Initial Vital (units ( unknown) date) Signs: unknown) (unknown) (no (unknown) (unknown) Initial chest x-ray (units (unknown) date) does not suggest unknown) significant infiltrates or congestive heart (unknown) (no (unknown) (unknown) Initial (units (unkno wn) date) presumption was unknown) sepsis or developing sepsis. Fluid resuscitation with (unknown) (no (unknown) (unknown) Interpretation: (units (unknown) date) unknown) (unknown) (no (unknown) (unknown) [facility] (units (unknown) date) [address] unknown) [place] [address] (unknown) (no (unknown) (unknown) Kidney stones (units ( unknown) date) unknown) (unknown) (no (unknown) (unknown) Kidneys and (units (un known) date) Ureters:? 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 (unknown) (no (unknown) (unknown) Lab Data (units (unkno wn) date) unknown) (unknown) (no (unknown) (unknown) Lab Results (units (un known) date) unknown) (unknown) (no (unknown) (unknown) Label Comments: (units (unknown) date) unknown) (unknown) (no (unknown) (unknown) Labs: (units (unkno wn) date) unknown) (unknown) (no (unknown) (unknown) Lactate (0.7-2.1) (units (unknown) date) mmol/L unknown) (unknown) (no (unknown) (unknown) Lactate (Lactic (units (unknown) date) Acid) Stat unknown) (unknown) (no (unknown) (unknown) Lactate 3.0 H (units ( unknown) date) (0.7-2.1) mmol/L unknown) (unknown) (no (unknown) (unknown) Lactic elevated at (units (unknown) date) 3.0, significantly unknown) elevated procalcitonin, urine certainly (unknown) (no (unknown) (unknown) Last Admin: (units (un known) date) 01/31/22 20:17 unknown) Dose: 100 mls/hr (unknown) (no (unknown) (unknown) Last Admin: (units (un known) date) 01/31/22 20:17 unknown) Dose: 920.79 mls/hr (unknown) (no (unknown) (unknown) Last Admin: (units (un known) date) 01/31/22 22:05 unknown) Dose: 975 mg (unknown) (no (unknown) (unknown) Last Admin: (units (un known) date) 01/31/22 22:18 unknown) Dose: 10 mg (unknown) (no (unknown) (unknown) Last Infusion: (units (unknown) date) 01/31/22 21:10 unknown) Dose: 0 mls/hr (unknown) (no (unknown) (unknown) Last Titration: (units (unknown) date) 01/31/22 23:06 unknown) Dose: 20 mcg/kg/min, 11.049 mls/hr (unknown) (no (unknown) (unknown) Left axis (units (unkn own) date) deviation unknown) (unknown) (no (unknown) (unknown) Liver:? (units (unkno wn) date) Unremarkable.? ? unknown) (unknown) (no (unknown) (unknown) Lung bases:? (units (u nknown) date) Unremarkable. unknown) (unknown) (no (unknown) (unknown) Lungs and pleura:? (units (unknown) date) Lungs are clear.? unknown) No pleural effusions or pneumothorax.? (unknown) (no (unknown) (unknown) Lymph # (Auto) Not (units (unknown) date) Reportable unknown) (unknown) (no (unknown) (unknown) Lymph # (Auto) (units (unknown) date) unknown) (unknown) (no (unknown) (unknown) Lymph % (Auto) Not (units (unknown) date) Reportable unknown) (unknown) (no (unknown) (unknown) Lymph % (Auto) (units (unknown) date) unknown) (unknown) (no (unknown) (unknown) Lymphocytes % (units ( unknown) date) (Manual) (25-45) % unknown) (unknown) (no (unknown) (unknown) Lymphocytes % (units ( unknown) date) (Manual) 5.0 L unknown) (25-45) % (unknown) (no (unknown) (unknown) [id number] (units (unk nown) date) unknown) (unknown) (no (unknown) (unknown) MCH (26-34) PG (units (unknown) date) unknown) (unknown) (no (unknown) (unknown) MCH 28.5 (26-34) (units (unknown) date) PG unknown) (unknown) (no (unknown) (unknown) MCHC (30-36) % (units (unknown) date) unknown) (unknown) (no (unknown) (unknown) MCHC 34.8 (30-36) (units (unknown) date) % unknown) (unknown) (no (unknown) (unknown) MCV (80-100) fL (units (unknown) date) unknown) (unknown) (no (unknown) (unknown) MCV 81.8 (80-100) (units (unknown) date) fL unknown) (unknown) (no (unknown) (unknown) MDM Narrative (units ( unknown) date) unknown) (unknown) (no (unknown) (unknown) Measure peak (units (u nknown) date) expiratory flow unknown) ONCE (unknown) (no (unknown) (unknown) Mediastinum:? (units ( unknown) date) Mediastinal unknown) contours are normal.? Heart size is normal.? (unknown) (no (unknown) (unknown) Medical Decision (units (unknown) date) Making unknown) (unknown) (no (unknown) (unknown) Medical History (units (unknown) date) (Updated 01/31/22 @ unknown) 22:11 by Kyleigh Castellanos MD) (unknown) (no (unknown) (unknown) Medical decision (units (unknown) date) making narrative: unknown) (unknown) (no (unknown) (unknown) Medication (units (unk nown) date) Instructions unknown) Recorded Confirmed (unknown) (no (unknown) (unknown) Medication (units (unk nown) date) Instructions unknown) Recorded (unknown) (no (unknown) (unknown) Metoclopramide HCl (units (unknown) date) (Metoclopramide 10 unknown) Mg/2 Ml Inj) 10 mg IV NOW ONE (unknown) (no (unknown) (unknown) Metronidazole (units ( unknown) date) (Flagyl) 500 mg in unknown) 100 mls @ 100 mls/hr IV NOW ONE (unknown) (no (unknown) (unknown) Miscellaneous: No (units (unknown) date) hernias are seen. ? unknown) ? (unknown) (no (unknown) (unknown) [place] # (Auto) Not (units (unknown) date) Reportable unknown) (unknown) (no (unknown) (unknown) [place] # (Auto) (units ( unknown) date) unknown) (unknown) (no (unknown) (unknown) [place] % (Auto) Not (units (unknown) date) Reportable unknown) (unknown) (no (unknown) (unknown) [place] % (Auto) (units ( unknown) date) unknown) (unknown) (no (unknown) (unknown) Monocytes % (units (un known) date) (Manual) (2-11) % unknown) (unknown) (no (unknown) (unknown) Monocytes % (units (un known) date) (Manual) 1.0 L unknown) (2-11) % (unknown) (no (unknown) (unknown) Must include vital (units (unknown) date) signs, unknown) cardiopulmonary exam, capillary refill, (unknown) (no (unknown) (unknown) Narrative: (units (unk nown) date) unknown) (unknown) (no (unknown) (unknown) Neck: No JVD, (units ( unknown) date) supple unknown) (unknown) (no (unknown) (unknown) Neurologic: (units (un known) date) Globally weak but unknown) Grossly neurologically intact with no obvious (unknown) (no (unknown) (unknown) Neut % (Auto) Not (units (unknown) date) Reportable unknown) (unknown) (no (unknown) (unknown) Neut % (Auto) (units ( unknown) date) unknown) (unknown) (no (unknown) (unknown) Neutrophils # (units ( unknown) date) (Manual) unknown) ([phone]) /uL (unknown) (no (unknown) (unknown) Neutrophils # (units ( unknown) date) (Manual) 88906 H unknown) ([phone]) /uL (unknown) (no (unknown) (unknown) No Action (units (unkn own) date) unknown) (unknown) (no (unknown) (unknown) ONE; Protocol (units ( unknown) date) unknown) (unknown) (no (unknown) (unknown) Ordered: (units (unkno wn) date) unknown) (unknown) (no (unknown) (unknown) Orders (units (unkno wn) date) unknown) (unknown) (no (unknown) (unknown) Oxygen Delivery (units (unknown) date) Method 01/31/22 unknown) 19:06 (unknown) (no (unknown) (unknown) Oxygen Delivery (units (unknown) date) Method Room Air unknown) Room Air (unknown) (no (unknown) (unknown) Oxygen Delivery (units (unknown) date) Method unknown) (unknown) (no (unknown) (unknown) PELVIS: (units (unkno wn) date) unknown) (unknown) (no (unknown) (unknown) PT (10.1-12.7) (units (unknown) date) SECONDS unknown) (unknown) (no (unknown) (unknown) PT 18.9 H (units (unkn own) date) (10.1-12.7) SECONDS unknown) (unknown) (no (unknown) (unknown) Pancreas:? (units (unk nown) date) Unremarkable.? ? unknown) (unknown) (no (unknown) (unknown) Partial (units (unkno wn) date) Thromboplastin Time unknown) Stat (unknown) (no (unknown) (unknown) Patient History (units (unknown) date) unknown) (unknown) (no (unknown) (unknown) Patient: (units (unkno wn) date) Pascual Padilla unknown) MR#: (unknown) (no (unknown) (unknown) Pelvic Nodes: No (units (unknown) date) enlarged lymph unknown) nodes.? (unknown) (no (unknown) (unknown) Pelvic Organs:? (units (unknown) date) Unremarkable.? ? unknown) (unknown) (no (unknown) (unknown) Penicillins (units (un known) date) Allergy Rash unknown) Verified 01/31/22 19:12 (unknown) (no (unknown) (unknown) Peritoneum:? No (units (unknown) date) abnormal unknown) intraperitoneal fluid.? No free air.? (unknown) (no (unknown) (unknown) Plt Count (units (unkn own) date) (150-400) X103/uL unknown) (unknown) (no (unknown) (unknown) Plt Count 156 (units ( unknown) date) (150-400) X103/uL unknown) (unknown) (no (unknown) (unknown) Point of care (units ( unknown) date) testing: unknown) (unknown) (no (unknown) (unknown) Potassium (units (unkn own) date) (3.4-5.1) mmol/L unknown) (unknown) (no (unknown) (unknown) Potassium 3.6 (units ( unknown) date) (3.4-5.1) mmol/L unknown) (unknown) (no (unknown) (unknown) Prescriptions: (units (unknown) date) unknown) (unknown) (no (unknown) (unknown) Previous Rx's (units ( unknown) date) unknown) (unknown) (no (unknown) (unknown) Procalcitonin (units ( unknown) date) (<0.5) ng/mL unknown) (unknown) (no (unknown) (unknown) Procalcitonin 4.70 (units (unknown) date) H (<0.5) ng/mL unknown) (unknown) (no (unknown) (unknown) Procalcitonin Stat (units (unknown) date) unknown) (unknown) (no (unknown) (unknown) Propofol (units (unkno wn) date) (Propofol) 1,000 mg unknown) in 100 mls @ 2.762 mls/hr IV TITRATE ANGI; Protocol (unknown) (no (unknown) (unknown) Prothrombin Time (units (unknown) date) INR Stat unknown) (unknown) (no (unknown) (unknown) Psych: (units (unkno wn) date) Cooperative, unknown) significant fatigue (unknown) (no (unknown) (unknown) Pulse Oximetry 100 (units (unknown) date) unknown) (unknown) (no (unknown) (unknown) Pulse Oximetry 81 (units (unknown) date) L unknown) (unknown) (no (unknown) (unknown) Pulse Oximetry 94 (units (unknown) date) unknown) (unknown) (no (unknown) (unknown) Pulse Oximetry 97 (units (unknown) date) 95 unknown) (unknown) (no (unknown) (unknown) Pulse Oximetry 97 (units (unknown) date) 96 unknown) (unknown) (no (unknown) (unknown) Pulse Oximetry 98 (units (unknown) date) 01/31/22 19:06 unknown) (unknown) (no (unknown) (unknown) Pulse Oximetry 98 (units (unknown) date) 95 unknown) (unknown) (no (unknown) (unknown) Pulse Oximetry 98 (units (unknown) date) 97 unknown) (unknown) (no (unknown) (unknown) Pulse Oximetry 99 (units (unknown) date) unknown) (unknown) (no (unknown) (unknown) Pulse Rate 117 H (units (unknown) date) 01/31/22 19:06 unknown) (unknown) (no (unknown) (unknown) Pulse Rate 117 H (units (unknown) date) 124 H unknown) (unknown) (no (unknown) (unknown) Pulse Rate 118 H (units (unknown) date) 67 unknown) (unknown) (no (unknown) (unknown) Pulse Rate 119 H (units (unknown) date) 120 H unknown) (unknown) (no (unknown) (unknown) Pulse Rate 119 H (units (unknown) date) unknown) (unknown) (no (unknown) (unknown) Pulse Rate 122 H (units (unknown) date) 116 H unknown) (unknown) (no (unknown) (unknown) Pulse Rate 122 H (units (unknown) date) unknown) (unknown) (no (unknown) (unknown) Pulse Rate 124 H (units (unknown) date) 139 H unknown) (unknown) (no (unknown) (unknown) Pulse Rate 143 H (units (unknown) date) unknown) (unknown) (no (unknown) (unknown) Pulse Rate 144 H (units (unknown) date) unknown) (unknown) (no (unknown) (unknown) QTC prolonged at (units (unknown) date) 583 milliseconds unknown) (unknown) (no (unknown) (unknown) Qualifiers: (units (un known) date) unknown) (unknown) (no (unknown) (unknown) RBC (4.5-5.9) (units ( unknown) date) X106/uL unknown) (unknown) (no (unknown) (unknown) RBC 4.66 (4.5-5.9) (units (unknown) date) X106/uL unknown) (unknown) (no (unknown) (unknown) RBC Morphology See (units (unknown) date) below unknown) (unknown) (no (unknown) (unknown) RBC Morphology (units (unknown) date) unknown) (unknown) (no (unknown) (unknown) RDW (11.6-14.8) % (units (unknown) date) unknown) (unknown) (no (unknown) (unknown) RDW 14.0 (units (unkno wn) date) (11.6-14.8) % unknown) (unknown) (no (unknown) (unknown) RT Consult Eval (units (unknown) date) and Treat Now unknown) (unknown) (no (unknown) (unknown) Radiologist's (units ( unknown) date) Impression: unknown) (unknown) (no (unknown) (unknown) Referrals: (units (unk nown) date) unknown) (unknown) (no (unknown) (unknown) Related Data (units (u nknown) date) unknown) (unknown) (no (unknown) (unknown) Remainder of (units (u nknown) date) complete review of unknown) systems is otherwise unremarkable except for (unknown) (no (unknown) (unknown) Respiratory Rate (units (unknown) date) 25 H 42 H unknown) (unknown) (no (unknown) (unknown) Respiratory Rate (units (unknown) date) 25 H unknown) (unknown) (no (unknown) (unknown) Respiratory Rate (units (unknown) date) 30 H unknown) (unknown) (no (unknown) (unknown) Respiratory Rate (units (unknown) date) 31 H unknown) (unknown) (no (unknown) (unknown) Respiratory Rate (units (unknown) date) 35 H 01/31/22 19:06 unknown) (unknown) (no (unknown) (unknown) Respiratory Rate (units (unknown) date) 35 H unknown) (unknown) (no (unknown) (unknown) Respiratory Rate (units (unknown) date) 37 H unknown) (unknown) (no (unknown) (unknown) Respiratory Rate (units (unknown) date) 39 H 41 H unknown) (unknown) (no (unknown) (unknown) Respiratory Rate (units (unknown) date) 40 H unknown) (unknown) (no (unknown) (unknown) Respiratory Rate (units (unknown) date) 43 H unknown) (unknown) (no (unknown) (unknown) Respiratory: Lungs (units (unknown) date) are clear to unknown) auscultation, no wheezing no rales no rhonchi. (unknown) (no (unknown) (unknown) Result diagrams: (units (unknown) date) unknown) (unknown) (no (unknown) (unknown) Review of Systems (units (unknown) date) unknown) (unknown) (no (unknown) (unknown) SARS-CoV-2 (PCR) (units (unknown) date) (Negative) unknown) (unknown) (no (unknown) (unknown) SARS-CoV-2 (PCR) (units (unknown) date) Negative (Negative) unknown) (unknown) (no (unknown) (unknown) Seg Neutrophils % (units (unknown) date) (38-70) % unknown) (unknown) (no (unknown) (unknown) Seg Neutrophils % (units (unknown) date) 82.0 H (38-70) % unknown) (unknown) (no (unknown) (unknown) Sepsis type: (units (u nknown) date) sepsis due to unknown) unspecified organism Sepsis acute organ dysfunction (unknown) (no (unknown) (unknown) Sepsis (units (unkno wn) date) unknown) (unknown) (no (unknown) (unknown) Septic Shock (units (u nknown) date) Criteria unknown) (unknown) (no (unknown) (unknown) Septic Shock (units (u nknown) date) Determination. the unknown) patient has been screened and (unknown) (no (unknown) (unknown) Severe Sepsis (units ( unknown) date) Criteria unknown) (unknown) (no (unknown) (unknown) Severe Sepsis (units ( unknown) date) Determination. the unknown) patient has been screened and (unknown) (no (unknown) (unknown) Signed By: (units (unk nown) date) unknown) (unknown) (no (unknown) (unknown) Sinus tachycardia (units (unknown) date) at a rate of 116 unknown) (unknown) (no (unknown) (unknown) Skin: Pale but (units (unknown) date) otherwise Warm and unknown) dry, no rashes (unknown) (no (unknown) (unknown) Smoking Status: (units (unknown) date) Never smoker unknown) (unknown) (no (unknown) (unknown) Social History (units (unknown) date) (Reviewed 01/31/22 unknown) @ 21:45 by Kyleigh Castellanos MD) (unknown) (no (unknown) (unknown) Sodium (137-145) (units (unknown) date) mmol/L unknown) (unknown) (no (unknown) (unknown) Sodium 135 L (units (u nknown) date) (137-145) mmol/L unknown) (unknown) (no (unknown) (unknown) Sodium Chloride (units (unknown) date) (Normal Saline unknown) 0.9%) 2,762.37 mls @ 920.79 mls/hr 30 ml/kg (unknown) (no (unknown) (unknown) Spleen:? (units (unkno wn) date) Unremarkable.? ? unknown) (unknown) (no (unknown) (unknown) Stated complaint: (units (unknown) date) Vomiting, Stomach unknown) cramps, SOB (unknown) (no (unknown) (unknown) Stomach and (units (un known) date) Bowel:? Stomach, unknown) small bowel loops, and colon are unremarkable.? (unknown) (no (unknown) (unknown) Stop: 01/31/22 (units (unknown) date) 20:06 unknown) (unknown) (no (unknown) (unknown) Stop: 01/31/22 (units (unknown) date) 21:04 unknown) (unknown) (no (unknown) (unknown) Stop: 01/31/22 (units (unknown) date) 21:42 unknown) (unknown) (no (unknown) (unknown) Stop: 01/31/22 (units (unknown) date) 22:13 unknown) (unknown) (no (unknown) (unknown) Stop: 01/31/22 (units (unknown) date) 22:50 unknown) (unknown) (no (unknown) (unknown) Stop: 01/31/22 (units (unknown) date) 23:01 unknown) (unknown) (no (unknown) (unknown) Stop: 02/01/22 (units (unknown) date) 04:48 unknown) (unknown) (no (unknown) (unknown) Substance Use (units ( unknown) date) Type: does not use unknown) (unknown) (no (unknown) (unknown) Subtle lateral ST (units (unknown) date) depression unknown) (unknown) (no (unknown) (unknown) Surgical changes (units (unknown) date) and devices:? unknown) None.? (unknown) (no (unknown) (unknown) Temperature 98.3 F (units (unknown) date) 01/31/22 19:06 unknown) (unknown) (no (unknown) (unknown) Temperature 98.3 F (units (unknown) date) unknown) (unknown) (no (unknown) (unknown) Temperature (units (un known) date) unknown) (unknown) (no (unknown) (unknown) The left (units (unkno wn) date) unknown) (unknown) (no (unknown) (unknown) Time Seen by (units (u nknown) date) Provider: 01/31/22 unknown) 19:43 (unknown) (no (unknown) (unknown) Time Septic Shock (units (unknown) date) diagnosed: [ ] unknown) (unknown) (no (unknown) (unknown) Total Bilirubin (units (unknown) date) (0.2-1.3) mg/dL unknown) (unknown) (no (unknown) (unknown) Total Bilirubin (units (unknown) date) 2.2 H (0.2-1.3) unknown) mg/dL (unknown) (no (unknown) (unknown) Total Counted 100 (units (unknown) date) unknown) (unknown) (no (unknown) (unknown) Total Counted (units ( unknown) date) unknown) (unknown) (no (unknown) (unknown) Total Creatine (units (unknown) date) Kinase (55-170) U/L unknown) (unknown) (no (unknown) (unknown) Total Creatine (units (unknown) date) Kinase 59 (55-170) unknown) U/L (unknown) (no (unknown) (unknown) Total Protein (units ( unknown) date) (6.3-8.2) g/dL unknown) (unknown) (no (unknown) (unknown) Total Protein 7.6 (units (unknown) date) (6.3-8.2) g/dL unknown) (unknown) (no (unknown) (unknown) Trop I [Troponin (units (unknown) date) I] Stat unknown) (unknown) (no (unknown) (unknown) Troponin + CK (units ( unknown) date) Cardiac Panel Stat unknown) (unknown) (no (unknown) (unknown) Troponin I (units (unk nown) date) (0.01-0.034) ng/mL unknown) (unknown) (no (unknown) (unknown) Troponin I 0.608 (units (unknown) date) H* (0.01-0.034) unknown) ng/mL (unknown) (no (unknown) (unknown) Troponin I 0.924 (units (unknown) date) H* (0.01-0.034) unknown) ng/mL (unknown) (no (unknown) (unknown) Troponin is (units (un known) date) elevated at 0.9-4. unknown) Priors are not available. He does not have a (unknown) (no (unknown) (unknown) Type 2 diabetes (units (unknown) date) mellitus unknown) (unknown) (no (unknown) (unknown) Ur Culture (units (unk nown) date) Indicated? Specimen unknown) cultured (unknown) (no (unknown) (unknown) Ur Culture (units (unk nown) date) Indicated? unknown) (unknown) (no (unknown) (unknown) Ur Leukocyte (units (u nknown) date) Esterase (NEGATIVE) unknown) (unknown) (no (unknown) (unknown) Ur Leukocyte (units (u nknown) date) Esterase 2+ H unknown) (NEGATIVE) (unknown) (no (unknown) (unknown) Ur Specific (units (un known) date) [place] unknown) (1.000-1.035) (unknown) (no (unknown) (unknown) Ur Specific (units (un known) date) [place] 1.010 unknown) (1.000-1.035) (unknown) (no (unknown) (unknown) Ur Squamous Epith (units (unknown) date) Cells (0-5/HPF) unknown) (unknown) (no (unknown) (unknown) Ur Squamous Epith (units (unknown) date) Cells None seen unknown) (0-5/HPF) (unknown) (no (unknown) (unknown) Urinalysis and (units (unknown) date) Microscopic Stat unknown) (unknown) (no (unknown) (unknown) Urine Appearance (units (unknown) date) Sl cloudy unknown) (unknown) (no (unknown) (unknown) Urine Appearance (units (unknown) date) unknown) (unknown) (no (unknown) (unknown) Urine Bacteria (units (unknown) date) (None) unknown) (unknown) (no (unknown) (unknown) Urine Bacteria (units (unknown) date) Many (>30) H (None) unknown) (unknown) (no (unknown) (unknown) Urine Bilirubin (units (unknown) date) (NEGATIVE) unknown) (unknown) (no (unknown) (unknown) Urine Bilirubin (units (unknown) date) Negative (NEGATIVE) unknown) (unknown) (no (unknown) (unknown) Urine Color Yellow (units (unknown) date) unknown) (unknown) (no (unknown) (unknown) Urine Color (units (un known) date) unknown) (unknown) (no (unknown) (unknown) Urine Culture Stat (units (unknown) date) unknown) (unknown) (no (unknown) (unknown) Urine Dip (units (unkn own) date) unknown) (unknown) (no (unknown) (unknown) Urine Glucose (UA) (units (unknown) date) (Negative) g/dL unknown) (unknown) (no (unknown) (unknown) Urine Glucose (UA) (units (unknown) date) Negative (Negative) unknown) g/dL (unknown) (no (unknown) (unknown) Urine Ketones (units ( unknown) date) (NEGATIVE) unknown) (unknown) (no (unknown) (unknown) Urine Ketones (units ( unknown) date) Negative (NEGATIVE) unknown) (unknown) (no (unknown) (unknown) Urine Nitrate (units ( unknown) date) (Negative) unknown) (unknown) (no (unknown) (unknown) Urine Nitrate (units ( unknown) date) Negative (Negative) unknown) (unknown) (no (unknown) (unknown) Urine Occult Blood (units (unknown) date) (Negative) unknown) (unknown) (no (unknown) (unknown) Urine Occult Blood (units (unknown) date) 1+ H (Negative) unknown) (unknown) (no (unknown) (unknown) Urine Protein (units ( unknown) date) (Negative) unknown) (unknown) (no (unknown) (unknown) Urine Protein 1+ H (units (unknown) date) (Negative) unknown) (unknown) (no (unknown) (unknown) Urine RBC (units (unkn own) date) (0-5/HPF) unknown) (unknown) (no (unknown) (unknown) Urine RBC 0-1/hpf (units (unknown) date) (0-5/HPF) unknown) (unknown) (no (unknown) (unknown) Urine Specific (units (unknown) date) [place] 1.02 unknown) (unknown) (no (unknown) (unknown) Urine Urobilinogen (units (unknown) date) (0.2) E.U./dL unknown) (unknown) (no (unknown) (unknown) Urine Urobilinogen (units (unknown) date) 0.2 (0.2) E.U./dL unknown) (unknown) (no (unknown) (unknown) Urine WBC (units (unkn own) date) (0-5/HPF) unknown) (unknown) (no (unknown) (unknown) Urine WBC (units (unkn own) date) 30-100/hpf H unknown) (0-5/HPF) (unknown) (no (unknown) (unknown) Urine pH (4.5-8.0) (units (unknown) date) unknown) (unknown) (no (unknown) (unknown) Urine pH 5.0 (units (u nknown) date) (4.5-8.0) unknown) (unknown) (no (unknown) (unknown) Ventral Wall: ? No (units (unknown) date) hernias.? unknown) (unknown) (no (unknown) (unknown) Vessels:? Aorta (units (unknown) date) and inferior vena unknown) cava are normal in size.? (unknown) (no (unknown) (unknown) Vital Signs - 8 hr (units (unknown) date) unknown) (unknown) (no (unknown) (unknown) Vital Signs (units (un known) date) unknown) (unknown) (no (unknown) (unknown) Vital signs: (units (u nknown) date) unknown) (unknown) (no (unknown) (unknown) WBC (4.5-11.0) (units (unknown) date) X103/uL unknown) (unknown) (no (unknown) (unknown) WBC 29.1 H (units (unk nown) date) (4.5-11.0) X103/uL unknown) (unknown) (no (unknown) (unknown) Was initially (units ( unknown) date) hypertensive is unknown) significantly tachycardic. Ultrasound for central (unknown) (no (unknown) (unknown) Within 3 hours (units (unknown) date) unknown) (unknown) (no (unknown) (unknown) Within 6 hours (if (units (unknown) date) continued unknown) hypotension after fluids or initial lactate >4) (unknown) (no (unknown) (unknown) XR chest 2V Stat (units (unknown) date) unknown) (unknown) (no (unknown) (unknown) [ ] 2 SIRS (units (unk nown) date) Criteria met unknown) (unknown) (no (unknown) (unknown) [ ] 30ml/kg fluid (units (unknown) date) unknown) (unknown) (no (unknown) (unknown) [ ] ABW used (units (u nknown) date) unknown) (unknown) (no (unknown) (unknown) [ ] BP < 90 or MAP (units (unknown) date) <65, >40mm decrease unknown) from normal baseline (unknown) (no (unknown) (unknown) [ ] Creat > 2.0 (units (unknown) date) unknown) (unknown) (no (unknown) (unknown) [ ] DOES NOT meet (units (unknown) date) criteria for septic unknown) shock (unknown) (no (unknown) (unknown) [ ] DOES NOT meet (units (unknown) date) criteria for severe unknown) sepsis (unknown) (no (unknown) (unknown) [ ] DOES meet (units ( unknown) date) criteria for septic unknown) shock (unknown) (no (unknown) (unknown) [ ] Evidence of at (units (unknown) date) least 1 organ unknown) system dysfunction (unknown) (no (unknown) (unknown) [ ] IBW (33.6) (units (unknown) date) used due to BMI > unknown) 30 (unknown) (no (unknown) (unknown) [ ] Initiate (units (u nknown) date) vasopressor therapy unknown) if persistent hypotension after adequate fluid (unknown) (no (unknown) (unknown) [ ] RR >20 (units (unk nown) date) unknown) (unknown) (no (unknown) (unknown) [ ] SBP ,90 or MAP (units (unknown) date) , 65 unknown) (unknown) (no (unknown) (unknown) [ ] altered mental (units (unknown) date) status unknown) (unknown) (no (unknown) (unknown) [ ] documentation (units (unknown) date) of septic shock unknown) (unknown) (no (unknown) (unknown) [ ] lactic > 4 at (units (unknown) date) any time unknown) (unknown) (no (unknown) (unknown) [ ] lactic redrawn (units (unknown) date) within 6 hours if unknown) >2.0 (unknown) (no (unknown) (unknown) [ ] mechanical (units (unknown) date) ventilation unknown) (unknown) (no (unknown) (unknown) [ ] patient or (units (unknown) date) advocate declining unknown) fluid administration after shared decision (unknown) (no (unknown) (unknown) [ ] platelet count (units (unknown) date) < 100k unknown) (unknown) (no (unknown) (unknown) [ ] provider (units (u nknown) date) documentation of unknown) severe sepsis (unknown) (no (unknown) (unknown) [ ] repeat volume (units (unknown) date) status and tissue unknown) perfusion assessment documented after fluid (unknown) (no (unknown) (unknown) [ x ] DOES meet (units (unknown) date) criteria for severe unknown) sepsis (unknown) (no (unknown) (unknown) [ x ] Lactate > 2 (units (unknown) date) unknown) (unknown) (no (unknown) (unknown) [ x ] broad (units (un known) date) spectrum abx unknown) started (unknown) (no (unknown) (unknown) [ x ] fever or (units (unknown) date) hypothermia unknown) (unknown) (no (unknown) (unknown) [ x ] lactic acid (units (unknown) date) level checked unknown) (unknown) (no (unknown) (unknown) [ x ] (units (unkno wn) date) leukocytosis/leukop unknown) enia/bandemia (unknown) (no (unknown) (unknown) [ x] HR >90 (units (un known) date) unknown) (unknown) (no (unknown) (unknown) [Embedded Image (units (unknown) date) Not Available] unknown) (unknown) (no (unknown) (unknown) [x ] T. Bili > 2.0 (units (unknown) date) unknown) (unknown) (no (unknown) (unknown) [x ] bacterial (units (unknown) date) source of infection unknown) suspected and documented (unknown) (no (unknown) (unknown) [x ] blood cx (units ( unknown) date) drawn prior to abx unknown) (unknown) (no (unknown) (unknown) a incontinence (units (unknown) date) pad. He has not unknown) been having any diarrhea or constipation. He (unknown) (no (unknown) (unknown) a slight (units (unkno wn) date) unknown) (unknown) (no (unknown) (unknown) account. (units (unkno wn) date) unknown) (unknown) (no (unknown) (unknown) acute renal (units (un known) date) failure Acute renal unknown) failure type: unspecified Severe sepsis shock (unknown) (no (unknown) (unknown) administered. His (units (unknown) date) abdominal pain is unknown) significantly improved. He is still (unknown) (no (unknown) (unknown) alcohol intake (units (unknown) date) frequency: unknown) holidays/special occasions only (unknown) (no (unknown) (unknown) alcohol intake: (units (unknown) date) current unknown) (unknown) (no (unknown) (unknown) amlodipine 10 mg (units (unknown) date) tablet 10 mg PO unknown) DAILY 01/27/18 07/13/19 (unknown) (no (unknown) (unknown) amlodipine 10 mg (units (unknown) date) tablet unknown) (unknown) (no (unknown) (unknown) and normotensive (units (unknown) date) with oxygen unknown) saturations 99% on room air. (unknown) (no (unknown) (unknown) any significant (units (unknown) date) cough, chest pain, unknown) palpitations, lower extremity edema. He (unknown) (no (unknown) (unknown) appendicitis. (units ( unknown) date) unknown) (unknown) (no (unknown) (unknown) appropriate (units (un known) date) sedation. No unknown) significant debris or edema coming up the ET tube. (unknown) (no (unknown) (unknown) asymmetries or (units (unknown) date) abnormalities unknown) (unknown) (no (unknown) (unknown) been significantly (units (unknown) date) fatigued but is unknown) otherwise cognitively intact. (unknown) (no (unknown) (unknown) began with (units (unk nown) date) ceftriaxone and unknown) Flagyl thinking that this was a GI source. (unknown) (no (unknown) (unknown) bolus was (units (unkn own) date) completed at unknown) [Date/Time] (unknown) (no (unknown) (unknown) bolus (units (unkno wn) date) unknown) (unknown) (no (unknown) (unknown) by the bladder (units (unknown) date) outlet obstruction unknown) and chronic urinary retention. (unknown) (no (unknown) (unknown) capillary refill (units (unknown) date) and no evidence of unknown) hypotension. Findings and concerns are (unknown) (no (unknown) (unknown) chlorthalidone 50 (units (unknown) date) mg tablet 50 mg PO unknown) DAILY 01/27/18 07/13/19 (unknown) (no (unknown) (unknown) chlorthalidone 50 (units (unknown) date) mg tablet unknown) (unknown) (no (unknown) (unknown) collecting (units (unk nown) date) unknown) (unknown) (no (unknown) (unknown) degree Mya renal (units (unknown) date) edema.? A urinary unknown) tract stone, is not seen on the left. (unknown) (no (unknown) (unknown) exenatide (units (unkn own) date) microspheres 2 unknown) mg/0.85 2 mg SUBCUT QWEEK 07/05/19 07/13/19 (unknown) (no (unknown) (unknown) failure. Current (units (unknown) date) access is 2 20 unknown) gauge peripheral IVs (unknown) (no (unknown) (unknown) fatigue, overall (units (unknown) date) altered mental unknown) status, increasing abdominal pain. He denies (unknown) (no (unknown) (unknown) fenofibrate (units (un known) date) nanocrystallized unknown) 145 145 mg PO DAILY 07/05/19 07/13/19 (unknown) (no (unknown) (unknown) fenofibrate (units (un known) date) nanocrystallized unknown) 145 mg tablet (unknown) (no (unknown) (unknown) for such. He is (units (unknown) date) not complaining of unknown) chest pain. Will repeat. (unknown) (no (unknown) (unknown) has been passing (units (unknown) date) gas. Reports no unknown) significant headache. They report that he has (unknown) (no (unknown) (unknown) history of known (units (unknown) date) coronary disease unknown) but does have a all appropriate risk factors (unknown) (no (unknown) (unknown) household members: (units (unknown) date) spouse unknown) (unknown) (no (unknown) (unknown) hydronephrosis or (units (unknown) date) unknown) (unknown) (no (unknown) (unknown) hyperlipidemia, (units (unknown) date) prior kidney stones unknown) presents with 12 hours of increasing fevers, (unknown) (no (unknown) (unknown) infuse over 3 hr (units (unknown) date) (2762.37 ml) IV NOW unknown) ONE (unknown) (no (unknown) (unknown) insulin glargine (units (unknown) date) 100 unit/mL (3 26 unknown) units SUBCUT DAILY 01/27/18 07/13/19 (unknown) (no (unknown) (unknown) insulin glargine (units (unknown) date) 100 unit/mL (3 mL) unknown) insulin pen (unknown) (no (unknown) (unknown) is placed. Urine (units (unknown) date) does look acutely unknown) infected. (unknown) (no (unknown) (unknown) kidney demonstrates (units (unknown) date) slight prominence unknown) of the central renal collecting system and (unknown) (no (unknown) (unknown) levofloxacin [From (units (unknown) date) Levaquin] Allergy unknown) Rash Verified 01/31/22 19:12 (unknown) (no (unknown) (unknown) line placement (units (unknown) date) shows no evidence unknown) of volume depletion. He is given 5 mg of IV (unknown) (no (unknown) (unknown) looks like a (units (u nknown) date) urinary tract unknown) infection. In the setting of acute urinary (unknown) (no (unknown) (unknown) losartan 100 mg (units (unknown) date) tablet 100 mg PO unknown) DAILY 01/27/18 07/13/19 (unknown) (no (unknown) (unknown) losartan 100 mg (units (unknown) date) tablet unknown) (unknown) (no (unknown) (unknown) mL subcutaneous (units (unknown) date) auto-injector unknown) (unknown) (no (unknown) (unknown) mL) subcutaneous (units (unknown) date) pen unknown) (unknown) (no (unknown) (unknown) making (units (unkno wn) date) conversation unknown) (unknown) (no (unknown) (unknown) metformin 500 mg (units (unknown) date) tablet 500 mg PO unknown) BID 01/27/18 07/13/19 (unknown) (no (unknown) (unknown) metformin 500 mg (units (unknown) date) tablet unknown) (unknown) (no (unknown) (unknown) metoprolol with (units (unknown) date) his rate coming unknown) down from a sinus tach in the 160 range to the (unknown) (no (unknown) (unknown) mg tablet (units (unkn own) date) unknown) (unknown) (no (unknown) (unknown) minor prominence (units (unknown) date) of the renal unknown) collecting system on the left without obvious (unknown) (no (unknown) (unknown) mondays (units (unkno wn) date) unknown) (unknown) (no (unknown) (unknown) no flank pain (units ( unknown) date) unknown) (unknown) (no (unknown) (unknown) not (units (unkno wn) date) unknown) (unknown) (no (unknown) (unknown) of oxygen. Given (units (unknown) date) Reglan. With unknown) prolonged QT I do not want to use Zofran. (unknown) (no (unknown) (unknown) organism (units (unkno wn) date) unknown) (unknown) (no (unknown) (unknown) oxycodone 5 mg (units (unknown) date) capsule 5 mg PO Q4H unknown) PRN pain #14 caps 07/13/19 (unknown) (no (unknown) (unknown) oxycodone 5 mg (units (unknown) date) capsule unknown) (unknown) (no (unknown) (unknown) pain for further (units (unknown) date) evaluation. unknown) Tachycardic, tachypneic, afebrile on presentation (unknown) (no (unknown) (unknown) peripheral pulse (units (unknown) date) evaluation, skin unknown) exam (unknown) (no (unknown) (unknown) pigtail right (units ( unknown) date) ureteral stent unknown) without hydronephrosis or hydroureter. Urine (unknown) (no (unknown) (unknown) pigtail (units (unkno wn) date) unknown) (unknown) (no (unknown) (unknown) prior to (units (unkno wn) date) determining acuity unknown) of hospital needs for admission. (unknown) (no (unknown) (unknown) retained (units (unkno wn) date) calculus.? On the unknown) left there is mild prominence of the central renal (unknown) (no (unknown) (unknown) retention, pigtail (units (unknown) date) catheter still in unknown) place and mild prominence of the collecting (unknown) (no (unknown) (unknown) reviewed with the (units (unknown) date) patient and his unknown) daughter. Will wait to see repeat troponin (unknown) (no (unknown) (unknown) right ureteral (units (unknown) date) stent.? There is no unknown) right-sided hydronephrosis or hydroureter.? (unknown) (no (unknown) (unknown) rosuvastatin 40 mg (units (unknown) date) tablet 40 mg PO unknown) DAILY 07/05/19 07/13/19 (unknown) (no (unknown) (unknown) rosuvastatin 40 mg (units (unknown) date) tablet unknown) (unknown) (no (unknown) (unknown) sample is obtained (units (unknown) date) and 1725 cc of unknown) urine are initially drained. Ramírez catheter (unknown) (no (unknown) (unknown) saturations are (units (unknown) date) dropping slightly unknown) 87% with a good waveform. He started on 2 L (unknown) (no (unknown) (unknown) saturations. (units (u nknown) date) Patient is moved to unknown) room 1 intubated with central line placed. (unknown) (no (unknown) (unknown) seen. (units (unkno wn) date) unknown) (unknown) (no (unknown) (unknown) showing signs of (units (unknown) date) good peripheral unknown) perfusion with warm extremities with good (unknown) (no (unknown) (unknown) shows flash (units (un known) date) pulmonary edema. unknown) (unknown) (no (unknown) (unknown) signs of (units (unkno wn) date) obstruction. unknown) (unknown) (no (unknown) (unknown) states that he is (units (unknown) date) able to void but it unknown) is only intervals and he frequently wears (unknown) (no (unknown) (unknown) status: with acute (units (unknown) date) organ dysfunction unknown) Severe sepsis acute organ dysfunction type: (unknown) (no (unknown) (unknown) status: without (units (unknown) date) septic shock unknown) Qualified Code(s): A41.9 - Sepsis, unspecified (unknown) (no (unknown) (unknown) system but an (units (u nknown) date) obstructive urinary unknown) tract stone more distally within the ureter is (unknown) (no (unknown) (unknown) system on the (units ( unknown) date) right without unknown) evidence of stone urology will be consult today. (unknown) (no (unknown) (unknown) taken into (units (unk nown) date) unknown) (unknown) (no (unknown) (unknown) tamsulosin 0.4 mg (units (unknown) date) capsule 0.4 mg PO unknown) DAILY #60 caps 07/13/19 (unknown) (no (unknown) (unknown) tamsulosin 0.4 mg (units (unknown) date) capsule unknown) (unknown) (no (unknown) (unknown) that included in (units (unknown) date) the HPI. unknown) (unknown) (no (unknown) (unknown) to direct (units (unkn own) date) questions unknown) (unknown) (no (unknown) (unknown) unremarkable.? (units (unknown) date) unknown) Result panel 22 (unknown) (no (unknown) (unknown) (no value) (units (unk nown) date) unknown) (unknown) (no (unknown) (unknown) (Bydureon BCise) (units (unknown) date) unknown) (unknown) (no (unknown) (unknown) 0.4 mg PO DAILY (units (unknown) date) Qty: 60 0RF unknown) (unknown) (no (unknown) (unknown) 10 mg PO DAILY (units (unknown) date) unknown) (unknown) (no (unknown) (unknown) 01/31/22 01/31/22 (units (unknown) date) 01/31/22 unknown) Range/Units (unknown) (no (unknown) (unknown) 01/31/22 19:24 (units (unknown) date) unknown) (unknown) (no (unknown) (unknown) 01/31/22 20:00 (units (unknown) date) unknown) (unknown) (no (unknown) (unknown) 01/31/22 20:02 (units (unknown) date) unknown) (unknown) (no (unknown) (unknown) 01/31/22 20:03 (units (unknown) date) unknown) (unknown) (no (unknown) (unknown) 01/31/22 20:14 (units (unknown) date) unknown) (unknown) (no (unknown) (unknown) 01/31/22 20:28 (units (unknown) date) unknown) (unknown) (no (unknown) (unknown) 01/31/22 22:13 (units (unknown) date) unknown) (unknown) (no (unknown) (unknown) 01/31/22 22:31 (units (unknown) date) unknown) (unknown) (no (unknown) (unknown) 01/31/22 (units (unkno wn) date) unknown) (unknown) (no (unknown) (unknown) 100 mg PO DAILY (units (unknown) date) unknown) (unknown) (no (unknown) (unknown) 1000pm patient is (units (unknown) date) re-evaluated. He is unknown) having fever and rigors and Tylenol as (unknown) (no (unknown) (unknown) 1015pm patient is (units (unknown) date) having an episode unknown) of emesis. Currently afebrile. Oxygen (unknown) (no (unknown) (unknown) 1055 Acute (units (unk nown) date) deterioration with unknown) severe respiratory strip distress, dropping (unknown) (no (unknown) (unknown) 1105 care is (units (u nknown) date) reviewed with the unknown) chicken boner, Dr. Pierson. With troponin coming (unknown) (no (unknown) (unknown) 1110 care is (units (u nknown) date) reviewed with unknown) Sung, urology. He will formally consult. (unknown) (no (unknown) (unknown) 1120 patient is (units (unknown) date) taken to the CT unknown) scanner and then will be transferred to the ICU. (unknown) (no (unknown) (unknown) 130 range. Blood (units (unknown) date) pressure was unknown) initially 200/110 and is now down to 125/30 with (unknown) (no (unknown) (unknown) 145 mg PO DAILY (units (unknown) date) unknown) (unknown) (no (unknown) (unknown) 19:06 01/31/22 (units (unknown) date) unknown) (unknown) (no (unknown) (unknown) 19:19 01/31/22 (units (unknown) date) unknown) (unknown) (no (unknown) (unknown) 19:20 01/31/22 (units (unknown) date) unknown) (unknown) (no (unknown) (unknown) 19:20 (units (unkno wn) date) unknown) (unknown) (no (unknown) (unknown) 19:30 01/31/22 (units (unknown) date) unknown) (unknown) (no (unknown) (unknown) 19:30 (units (unkno wn) date) unknown) (unknown) (no (unknown) (unknown) 2 mg SUBCUT QWEEK (units (unknown) date) unknown) (unknown) (no (unknown) (unknown) 20:00 01/31/22 (units (unknown) date) unknown) (unknown) (no (unknown) (unknown) 20:00 20:00 20:00 (units (unknown) date) unknown) (unknown) (no (unknown) (unknown) 20:14 22:13 22:13 (units (unknown) date) unknown) (unknown) (no (unknown) (unknown) 20:30 01/31/22 (units (unknown) date) unknown) (unknown) (no (unknown) (unknown) 20:30 (units (unkno wn) date) unknown) (unknown) (no (unknown) (unknown) 20:45 01/31/22 (units (unknown) date) unknown) (unknown) (no (unknown) (unknown) 21:07 (units (unkno wn) date) unknown) (unknown) (no (unknown) (unknown) 21:11 01/31/22 (units (unknown) date) unknown) (unknown) (no (unknown) (unknown) 21:15 01/31/22 (units (unknown) date) unknown) (unknown) (no (unknown) (unknown) 21:30 01/31/22 (units (unknown) date) unknown) (unknown) (no (unknown) (unknown) 21:30 (units (unkno wn) date) unknown) (unknown) (no (unknown) (unknown) 21:46 01/31/22 (units (unknown) date) unknown) (unknown) (no (unknown) (unknown) 21:46 (units (unkno wn) date) unknown) (unknown) (no (unknown) (unknown) 22:00 01/31/22 (units (unknown) date) unknown) (unknown) (no (unknown) (unknown) 22:05 (units (unkno wn) date) unknown) (unknown) (no (unknown) (unknown) 22:15 (units (unkno wn) date) unknown) (unknown) (no (unknown) (unknown) 26 units subcut (units (unknown) date) DAILY unknown) (unknown) (no (unknown) (unknown) 30 particular was (units (unknown) date) initiated. He is unknown) allergic to penicillin so rather than Zosyn (unknown) (no (unknown) (unknown) 40 mg PO DAILY (units (unknown) date) unknown) (unknown) (no (unknown) (unknown) 5 mg PO Q4H PRN (units (unknown) date) (Reason: pain) Qty: unknown) 14 0RF (unknown) (no (unknown) (unknown) 50 mg PO DAILY (units (unknown) date) unknown) (unknown) (no (unknown) (unknown) 500 mg PO BID (units ( unknown) date) unknown) (unknown) (no (unknown) (unknown) 71-year-old (units (un known) date) gentleman presents unknown) acutely ill, febrile pale with severe abdominal (unknown) (no (unknown) (unknown) 71-year-old (units (un known) date) gentleman with unknown) history of hypertension, type 2 diabetes, (unknown) (no (unknown) (unknown) ? 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 (unknown) (no (unknown) (unknown) ABDOMEN: (units (unkno wn) date) unknown) (unknown) (no (unknown) (unknown) ALT (<50) IU/L (units (unknown) date) unknown) (unknown) (no (unknown) (unknown) ALT 16 (<50) IU/L (units (unknown) date) unknown) (unknown) (no (unknown) (unknown) APTT (26-36) (units (u nknown) date) SECONDS unknown) (unknown) (no (unknown) (unknown) APTT 31 (26-36) (units (unknown) date) SECONDS unknown) (unknown) (no (unknown) (unknown) AST (17-59) IU/L (units (unknown) date) unknown) (unknown) (no (unknown) (unknown) AST 31 (17-59) (units (unknown) date) IU/L unknown) (unknown) (no (unknown) (unknown) Abdomen: Mild (units ( unknown) date) distention, diffuse unknown) abdominal pain without rebound or guarding, (unknown) (no (unknown) (unknown) Abdominal Nodes:? (units (unknown) date) No retroperitoneal unknown) or mesenteric adenopathy by size criteria.? (unknown) (no (unknown) (unknown) Acetaminophen (units ( unknown) date) (Acetaminophen 325 unknown) Mg Tablet) 975 mg PO NOW ONE (unknown) (no (unknown) (unknown) Acute kidney (units (u nknown) date) injury with unknown) creatinine increased from 1.3-1.6. Likely compounded (unknown) (no (unknown) (unknown) Acute (units (unkno wn) date) pyelonephritis, unknown) Sepsis, Benign prostatic hyperplasia, Acute urinary (unknown) (no (unknown) (unknown) Additional (units (unk nown) date) Information: unknown) (unknown) (no (unknown) (unknown) Admin: 01/31/22 (units (unknown) date) 20:13 Dose: 200 unknown) mls/hr (unknown) (no (unknown) (unknown) Adrenal Glands:? (units (unknown) date) Unremarkable.? ? unknown) (unknown) (no (unknown) (unknown) Age/Sex: 71 / M (units (unknown) date) unknown) (unknown) (no (unknown) (unknown) Albumin (3.5-5.0) (units (unknown) date) g/dL unknown) (unknown) (no (unknown) (unknown) Albumin 4.2 (units (un known) date) (3.5-5.0) g/dL unknown) (unknown) (no (unknown) (unknown) Albumin/Globulin (units (unknown) date) Ratio (1.0-2.8) unknown) (unknown) (no (unknown) (unknown) Albumin/Globulin (units (unknown) date) Ratio 1.2 (1.0-2.8) unknown) (unknown) (no (unknown) (unknown) Alkaline (units (unkno wn) date) Phosphatase unknown) (38-126) U/L (unknown) (no (unknown) (unknown) Alkaline (units (unkno wn) date) Phosphatase 66 unknown) (38-126) U/L (unknown) (no (unknown) (unknown) Allergies (units (unkn own) date) unknown) (unknown) (no (unknown) (unknown) Allergy/AdvReac (units (unknown) date) Type Severity unknown) Reaction Status Date / Time (unknown) (no (unknown) (unknown) Amiodarone HCl (units (unknown) date) (Amiodarone 150 unknown) Mg/3 Ml Vial) 300 mg IV NOW ONE (unknown) (no (unknown) (unknown) Amiodarone (units (unk nown) date) HCl/Dextrose unknown) (Nexterone) 360 mg in 200 mls @ 33.333 mls/hr IV NOW (unknown) (no (unknown) (unknown) Anisocytosis 1+ H (units (unknown) date) unknown) (unknown) (no (unknown) (unknown) Anisocytosis (units (u nknown) date) unknown) (unknown) (no (unknown) (unknown) 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, unknown) Ramírez catheter now in place (unknown) (no (unknown) (unknown) BUN (9-20) mg/dL (units (unknown) date) unknown) (unknown) (no (unknown) (unknown) BUN 22 H (9-20) (units (unknown) date) mg/dL unknown) (unknown) (no (unknown) (unknown) BUN/Creatinine (units (unknown) date) Ratio (6-22) unknown) (unknown) (no (unknown) (unknown) BUN/Creatinine (units (unknown) date) Ratio 13.8 (6-22) unknown) (unknown) (no (unknown) (unknown) Band Neutrophils % (units (unknown) date) (3-7) % unknown) (unknown) (no (unknown) (unknown) Band Neutrophils % (units (unknown) date) 12.0 H (3-7) % unknown) (unknown) (no (unknown) (unknown) Baso # (Auto) Not (units (unknown) date) Reportable unknown) (unknown) (no (unknown) (unknown) Baso # (Auto) (units ( unknown) date) unknown) (unknown) (no (unknown) (unknown) Baso % (Auto) Not (units (unknown) date) Reportable unknown) (unknown) (no (unknown) (unknown) Baso % (Auto) (units ( unknown) date) unknown) (unknown) (no (unknown) (unknown) Bedside Urine (units ( unknown) date) Bilirubin - unknown) Negative (unknown) (no (unknown) (unknown) Bedside Urine (units ( unknown) date) Glucose Negative unknown) (unknown) (no (unknown) (unknown) Bedside Urine (units ( unknown) date) Ketone - Negative unknown) (unknown) (no (unknown) (unknown) Bedside Urine (units ( unknown) date) Leukocytes + 70 unknown) (unknown) (no (unknown) (unknown) Bedside Urine (units ( unknown) date) Nitrite - Negative unknown) (unknown) (no (unknown) (unknown) Bedside Urine (units ( unknown) date) Occult Blood +/ unknown) (unknown) (no (unknown) (unknown) Bedside Urine (units ( unknown) date) Protein + 30 unknown) (unknown) (no (unknown) (unknown) Bedside Urine (units ( unknown) date) Urobilinogen - unknown) Negative (unknown) (no (unknown) (unknown) Bedside Urine pH 6 (units (unknown) date) unknown) (unknown) (no (unknown) (unknown) Biliary ducts:? (units (unknown) date) Unremarkable.? ? unknown) (unknown) (no (unknown) (unknown) Bladder:? (units (unkn own) date) Unremarkable.? ? unknown) (unknown) (no (unknown) (unknown) Blood Culture Stat (units (unknown) date) unknown) (unknown) (no (unknown) (unknown) Blood Pressure (units (unknown) date) 127/80 unknown) (unknown) (no (unknown) (unknown) Blood Pressure (units (unknown) date) 132/79 unknown) (unknown) (no (unknown) (unknown) Blood Pressure (units (unknown) date) 134/75 01/31/22 unknown) 19:06 (unknown) (no (unknown) (unknown) Blood Pressure (units (unknown) date) 134/75 139/80 unknown) (unknown) (no (unknown) (unknown) Blood Pressure (units (unknown) date) 136/78 unknown) (unknown) (no (unknown) (unknown) Blood Pressure (units (unknown) date) 137/76 unknown) (unknown) (no (unknown) (unknown) Blood Pressure (units (unknown) date) 138/78 146/84 H unknown) (unknown) (no (unknown) (unknown) Blood Pressure (units (unknown) date) 150/100 H unknown) (unknown) (no (unknown) (unknown) Blood Pressure (units (unknown) date) 153/77 H 128/76 unknown) (unknown) (no (unknown) (unknown) Blood Pressure (units (unknown) date) unknown) (unknown) (no (unknown) (unknown) Bones and chest (units (unknown) date) wall:? No unknown) suspicious bony abnormalities.? Soft tissues appear (unknown) (no (unknown) (unknown) Bones:? (units (unkno wn) date) Unremarkable.? ? unknown) (unknown) (no (unknown) (unknown) Bydureon BCise 2 (units (unknown) date) mg/0.85 mL unknown) auto-injector (unknown) (no (unknown) (unknown) CK-MB (CK-2) Rel (units (unknown) date) Index TNP unknown) (unknown) (no (unknown) (unknown) CK-MB (CK-2) Rel (units (unknown) date) Index unknown) (unknown) (no (unknown) (unknown) CK-MB (CK-2) TNP (units (unknown) date) unknown) (unknown) (no (unknown) (unknown) CK-MB (CK-2) (units (u nknown) date) unknown) (unknown) (no (unknown) (unknown) COVID19 -Nasal (units (unknown) date) RAPID/Pre-Proc Stat unknown) (unknown) (no (unknown) (unknown) CT abdomen pelvis (units (unknown) date) w con Stat unknown) (unknown) (no (unknown) (unknown) CT scan - (units (unkn own) date) abdomen/pelvis: unknown) (unknown) (no (unknown) (unknown) CT scan does not (units (unknown) date) suggest acute unknown) abscess, diverticulitis or appendicitis. Some (unknown) (no (unknown) (unknown) Calcium (8.4-10.2) (units (unknown) date) mg/dL unknown) (unknown) (no (unknown) (unknown) Calcium 8.1 L (units ( unknown) date) (8.4-10.2) mg/dL unknown) (unknown) (no (unknown) (unknown) Carbon Dioxide (units (unknown) date) (22-32) mmol/L unknown) (unknown) (no (unknown) (unknown) Carbon Dioxide 23 (units (unknown) date) (22-32) mmol/L unknown) (unknown) (no (unknown) (unknown) Cardiac: (units (unkno wn) date) Tachycardic without unknown) murmurs (unknown) (no (unknown) (unknown) Care is reviewed (units (unknown) date) with Melita Thompson, unknown) [facility] provider. She accepts (unknown) (no (unknown) (unknown) Ceftriaxone Sodium (units (unknown) date) 2,000 mg/ (Sodium unknown) Chloride) 100 mls @ 200 mls/hr IV NOW ONE (unknown) (no (unknown) (unknown) Chest [XR chest (units (unknown) date) 1V] Stat unknown) (unknown) (no (unknown) (unknown) Chest x-ray: (units (u nknown) date) unknown) (unknown) (no (unknown) (unknown) Chief complaint: (units (unknown) date) Abdominal Pain unknown) (unknown) (no (unknown) (unknown) Chloride (98-107) (units (unknown) date) mmol/L unknown) (unknown) (no (unknown) (unknown) Chloride 96 L (units ( unknown) date) (98-107) mmol/L unknown) (unknown) (no (unknown) (unknown) Jillian Rosales, (units (unknown) date) MD [Primary Care unknown) Provider] (unknown) (no (unknown) (unknown) Clinical (units (unkno wn) date) Impression: unknown) (unknown) (no (unknown) (unknown) Clinical reason (units (unknown) date) for NOT initiating unknown) fluid bolus: (unknown) (no (unknown) (unknown) Complete Blood (units (unknown) date) Count AUTO DIFF unknown) Stat (unknown) (no (unknown) (unknown) Comprehensive (units ( unknown) date) Metabolic Panel unknown) Stat (unknown) (no (unknown) (unknown) Course (units (unkno wn) date) unknown) (unknown) (no (unknown) (unknown) Creatinine (units (unk nown) date) (0.66-1.25) mg/dL unknown) (unknown) (no (unknown) (unknown) Creatinine 1.60 H (units (unknown) date) (0.66-1.25) mg/dL unknown) (unknown) (no (unknown) (unknown) Currently at a (units (unknown) date) rate of a 130. Post unknown) intubation and central line chest x-ray (unknown) (no (unknown) (unknown) D Dimer Stat (units (u nknown) date) unknown) (unknown) (no (unknown) (unknown) D-Dimer (<500) (units (unknown) date) ng/ml unknown) (unknown) (no (unknown) (unknown) D-Dimer 821 H (units ( unknown) date) (<500) ng/ml unknown) (unknown) (no (unknown) (unknown) : 1950 (units (unknown) date) Acct:[id number] unknown) (unknown) (no (unknown) (unknown) Date of Service: (units (unknown) date) 01/31/22 unknown) (unknown) (no (unknown) (unknown) Departure (units (unkn own) date) unknown) (unknown) (no (unknown) (unknown) Dictated by: Dwayne (units (unknown) date) Jody Meadows on unknown) 01/31/2022 at 20:08 ? ? (unknown) (no (unknown) (unknown) Dictated by: Dwayne (units (unknown) date) Jody Meadows on unknown) 01/31/2022 at 21:21 ? ? (unknown) (no (unknown) (unknown) Discharge Plan (units (unknown) date) unknown) (unknown) (no (unknown) (unknown) Discontinued (units (u nknown) date) Medications unknown) (unknown) (no (unknown) (unknown) Documented By: NR (units (unknown) date) unknown) (unknown) (no (unknown) (unknown) Dr. Almaraz. I do (units (unknown) date) not know if he had unknown) the opportunity follow-up with a (unknown) (no (unknown) (unknown) ECG Data (units (unkno wn) date) unknown) (unknown) (no (unknown) (unknown) ED Orders (units (unkn own) date) unknown) (unknown) (no (unknown) (unknown) EKG-12 Lead Stat (units (unknown) date) unknown) (unknown) (no (unknown) (unknown) ER Physician: (units ( unknown) date) Kyleigh Castellanos MD unknown) (unknown) (no (unknown) (unknown) Emergency Report (units (unknown) date) unknown) (unknown) (no (unknown) (unknown) Eos % (Auto) Not (units (unknown) date) Reportable unknown) (unknown) (no (unknown) (unknown) Eos % (Auto) (units (u nknown) date) unknown) (unknown) (no (unknown) (unknown) Esterase (units (unkno wn) date) unknown) (unknown) (no (unknown) (unknown) Estimated GFR (units ( unknown) date) (>60) mL/min unknown) (unknown) (no (unknown) (unknown) Estimated GFR 45 L (units (unknown) date) (>60) mL/min unknown) (unknown) (no (unknown) (unknown) Exam (units (unkno wn) date) unknown) (unknown) (no (unknown) (unknown) Extremities: No (units (unknown) date) trauma, well unknown) perfused (unknown) (no (unknown) (unknown) FINDINGS:? (units (unk nown) date) unknown) (unknown) (no (unknown) (unknown) Full and (units (unkno wn) date) symmetrical air unknown) movement, no respiratory distress appreciated (unknown) (no (unknown) (unknown) Gallbladder:? (units ( unknown) date) Unremarkable.? ? unknown) (unknown) (no (unknown) (unknown) General (units (unkno wn) date) unknown) (unknown) (no (unknown) (unknown) General: Acutely (units (unknown) date) ill-appearing, unknown) pale, significantly fatigued but will respond (unknown) (no (unknown) (unknown) Globulin (1.7-4.1) (units (unknown) date) g/dL unknown) (unknown) (no (unknown) (unknown) Globulin 3.4 (units (u nknown) date) (1.7-4.1) g/dL unknown) (unknown) (no (unknown) (unknown) Glucose (80-110) (units (unknown) date) mg/dL unknown) (unknown) (no (unknown) (unknown) Glucose 262 H (units ( unknown) date) (80-110) mg/dL unknown) (unknown) (no (unknown) (unknown) Goal directed (units ( unknown) date) therapy within 3 unknown) hours of septic shock or initial hypotension (unknown) (no (unknown) (unknown) Goal directed (units ( unknown) date) treatment unknown) (unknown) (no (unknown) (unknown) HEENT: Moist (units (u nknown) date) mucous membranes, unknown) normal sclera with reactive pupils, (unknown) (no (unknown) (unknown) HPI - General (units ( unknown) date) Adult unknown) (unknown) (no (unknown) (unknown) HPI narrative: (units (unknown) date) unknown) (unknown) (no (unknown) (unknown) Hct (41-53) % (units ( unknown) date) unknown) (unknown) (no (unknown) (unknown) Hct 38.2 L (41-53) (units (unknown) date) % unknown) (unknown) (no (unknown) (unknown) He has a history (units (unknown) date) of kidney stones unknown) and 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 No (units (unk nown) date) significant unknown) findings. (unknown) (no (unknown) (unknown) Hgb (13.5-17.5) (units (unknown) date) g/dL unknown) (unknown) (no (unknown) (unknown) Hgb 13.3 L (units (unk nown) date) (13.5-17.5) g/dL unknown) (unknown) (no (unknown) (unknown) History of Present (units (unknown) date) Illness unknown) (unknown) (no (unknown) (unknown) History of kidney (units (unknown) date) stones unknown) (unknown) (no (unknown) (unknown) Home Medications (units (unknown) date) unknown) (unknown) (no (unknown) (unknown) Hyperlipidemia (units (unknown) date) unknown) (unknown) (no (unknown) (unknown) Hypertension (units (u nknown) date) unknown) (unknown) (no (unknown) (unknown) IMPRESSION:? No (units (unknown) date) abscess found, no unknown) evidence of colitis or diverticulitis, or (unknown) (no (unknown) (unknown) IMPRESSION:? (units (u nknown) date) Reduced inspiratory unknown) volume, no acute disease when this factor is (unknown) (no (unknown) (unknown) INR (0.9-1.3) (units ( unknown) date) unknown) (unknown) (no (unknown) (unknown) INR 1.6 H (units (unkn own) date) (0.9-1.3) unknown) (unknown) (no (unknown) (unknown) Image quality:? (units (unknown) date) Excellent.? unknown) (unknown) (no (unknown) (unknown) Imaging Data (units (u nknown) date) unknown) (unknown) (no (unknown) (unknown) Initial Vital (units ( unknown) date) Signs unknown) (unknown) (no (unknown) (unknown) Initial Vital (units ( unknown) date) Signs: unknown) (unknown) (no (unknown) (unknown) Initial chest x-ray (units (unknown) date) does not suggest unknown) significant infiltrates or congestive heart (unknown) (no (unknown) (unknown) Initial (units (unkno wn) date) presumption was unknown) sepsis or developing sepsis. Fluid resuscitation with (unknown) (no (unknown) (unknown) Interpretation: (units (unknown) date) unknown) (unknown) (no (unknown) (unknown) [facility] (units (unknown) date) [address] [place] [address] unknown) [place] [address] (unknown) (no (unknown) (unknown) Kidney stones (units ( unknown) date) unknown) (unknown) (no (unknown) (unknown) Kidneys and (units (un known) date) Ureters:? 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 (unknown) (no (unknown) (unknown) Lab Data (units (unkno wn) date) unknown) (unknown) (no (unknown) (unknown) Lab Results (units (un known) date) unknown) (unknown) (no (unknown) (unknown) Label Comments: (units (unknown) date) unknown) (unknown) (no (unknown) (unknown) Labs: (units (unkno wn) date) unknown) (unknown) (no (unknown) (unknown) Lactate (0.7-2.1) (units (unknown) date) mmol/L unknown) (unknown) (no (unknown) (unknown) Lactate (Lactic (units (unknown) date) Acid) Stat unknown) (unknown) (no (unknown) (unknown) Lactate 3.0 H (units ( unknown) date) (0.7-2.1) mmol/L unknown) (unknown) (no (unknown) (unknown) Lactic elevated at (units (unknown) date) 3.0, significantly unknown) elevated procalcitonin, urine certainly (unknown) (no (unknown) (unknown) Last Admin: (units (un known) date) 01/31/22 20:17 unknown) Dose: 100 mls/hr (unknown) (no (unknown) (unknown) Last Admin: (units (un known) date) 01/31/22 20:17 unknown) Dose: 920.79 mls/hr (unknown) (no (unknown) (unknown) Last Admin: (units (un known) date) 01/31/22 22:05 unknown) Dose: 975 mg (unknown) (no (unknown) (unknown) Last Admin: (units (un known) date) 01/31/22 22:18 unknown) Dose: 10 mg (unknown) (no (unknown) (unknown) Last Infusion: (units (unknown) date) 01/31/22 21:10 unknown) Dose: 0 mls/hr (unknown) (no (unknown) (unknown) Last Titration: (units (unknown) date) 01/31/22 23:06 unknown) Dose: 20 mcg/kg/min, 11.049 mls/hr (unknown) (no (unknown) (unknown) Left axis (units (unkn own) date) deviation unknown) (unknown) (no (unknown) (unknown) Liver:? (units (unkno wn) date) Unremarkable.? ? unknown) (unknown) (no (unknown) (unknown) Lung bases:? (units (u nknown) date) Unremarkable. unknown) (unknown) (no (unknown) (unknown) Lungs and pleura:? (units (unknown) date) Lungs are clear.? unknown) No pleural effusions or pneumothorax.? (unknown) (no (unknown) (unknown) Lymph # (Auto) Not (units (unknown) date) Reportable unknown) (unknown) (no (unknown) (unknown) Lymph # (Auto) (units (unknown) date) unknown) (unknown) (no (unknown) (unknown) Lymph % (Auto) Not (units (unknown) date) Reportable unknown) (unknown) (no (unknown) (unknown) Lymph % (Auto) (units (unknown) date) unknown) (unknown) (no (unknown) (unknown) Lymphocytes % (units ( unknown) date) (Manual) (25-45) % unknown) (unknown) (no (unknown) (unknown) Lymphocytes % (units ( unknown) date) (Manual) 5.0 L unknown) (25-45) % (unknown) (no (unknown) (unknown) [id number] (units (unk nown) date) unknown) (unknown) (no (unknown) (unknown) MCH (26-34) PG (units (unknown) date) unknown) (unknown) (no (unknown) (unknown) MCH 28.5 (26-34) (units (unknown) date) PG unknown) (unknown) (no (unknown) (unknown) MCHC (30-36) % (units (unknown) date) unknown) (unknown) (no (unknown) (unknown) MCHC 34.8 (30-36) (units (unknown) date) % unknown) (unknown) (no (unknown) (unknown) MCV (80-100) fL (units (unknown) date) unknown) (unknown) (no (unknown) (unknown) MCV 81.8 (80-100) (units (unknown) date) fL unknown) (unknown) (no (unknown) (unknown) MDM Narrative (units ( unknown) date) unknown) (unknown) (no (unknown) (unknown) June of 2019 with (units (unknown) date) no notes to unknown) indicate that he have follow-up after that with (unknown) (no (unknown) (unknown) Measure peak (units (u nknown) date) expiratory flow unknown) ONCE (unknown) (no (unknown) (unknown) Mediastinum:? (units ( unknown) date) Mediastinal unknown) contours are normal.? Heart size is normal.? (unknown) (no (unknown) (unknown) Medical Decision (units (unknown) date) Making unknown) (unknown) (no (unknown) (unknown) Medical History (units (unknown) date) (Updated 01/31/22 @ unknown) 23:30 by Kyleigh Castellanos MD) (unknown) (no (unknown) (unknown) Medical decision (units (unknown) date) making narrative: unknown) (unknown) (no (unknown) (unknown) Medication (units (unk nown) date) Instructions unknown) Recorded Confirmed (unknown) (no (unknown) (unknown) Medication (units (unk nown) date) Instructions unknown) Recorded (unknown) (no (unknown) (unknown) Metoclopramide HCl (units (unknown) date) (Metoclopramide 10 unknown) Mg/2 Ml Inj) 10 mg IV NOW ONE (unknown) (no (unknown) (unknown) Metronidazole (units ( unknown) date) (Flagyl) 500 mg in unknown) 100 mls @ 100 mls/hr IV NOW ONE (unknown) (no (unknown) (unknown) Miscellaneous: No (units (unknown) date) hernias are seen. ? unknown) ? (unknown) (no (unknown) (unknown) [place] # (Auto) Not (units (unknown) date) Reportable unknown) (unknown) (no (unknown) (unknown) [place] # (Auto) (units ( unknown) date) unknown) (unknown) (no (unknown) (unknown) [place] % (Auto) Not (units (unknown) date) Reportable unknown) (unknown) (no (unknown) (unknown) [place] % (Auto) (units ( unknown) date) unknown) (unknown) (no (unknown) (unknown) Monocytes % (units (un known) date) (Manual) (2-11) % unknown) (unknown) (no (unknown) (unknown) Monocytes % (units (un known) date) (Manual) 1.0 L unknown) (2-11) % (unknown) (no (unknown) (unknown) Must include vital (units (unknown) date) signs, unknown) cardiopulmonary exam, capillary refill, (unknown) (no (unknown) (unknown) Narrative: (units (unk nown) date) unknown) (unknown) (no (unknown) (unknown) Neck: No JVD, (units ( unknown) date) supple unknown) (unknown) (no (unknown) (unknown) Neurologic: (units (un known) date) Globally weak but unknown) Grossly neurologically intact with no obvious (unknown) (no (unknown) (unknown) Neut % (Auto) Not (units (unknown) date) Reportable unknown) (unknown) (no (unknown) (unknown) Neut % (Auto) (units ( unknown) date) unknown) (unknown) (no (unknown) (unknown) Neutrophils # (units ( unknown) date) (Manual) unknown) (1612-0486) /uL (unknown) (no (unknown) (unknown) Neutrophils # (units ( unknown) date) (Manual) 12737 H unknown) (3212-1708) /uL (unknown) (no (unknown) (unknown) No Action (units (unkn own) date) unknown) (unknown) (no (unknown) (unknown) ONE; Protocol (units ( unknown) date) unknown) (unknown) (no (unknown) (unknown) Ordered: (units (unkno wn) date) unknown) (unknown) (no (unknown) (unknown) Orders (units (unkno wn) date) unknown) (unknown) (no (unknown) (unknown) Oxygen Delivery (units (unknown) date) Method 01/31/22 unknown) 19:06 (unknown) (no (unknown) (unknown) Oxygen Delivery (units (unknown) date) Method Room Air unknown) Room Air (unknown) (no (unknown) (unknown) Oxygen Delivery (units (unknown) date) Method unknown) (unknown) (no (unknown) (unknown) PELVIS: (units (unkno wn) date) unknown) (unknown) (no (unknown) (unknown) PT (10.1-12.7) (units (unknown) date) SECONDS unknown) (unknown) (no (unknown) (unknown) PT 18.9 H (units (unkn own) date) (10.1-12.7) SECONDS unknown) (unknown) (no (unknown) (unknown) Pancreas:? (units (unk nown) date) Unremarkable.? ? unknown) (unknown) (no (unknown) (unknown) Partial (units (unkno wn) date) Thromboplastin Time unknown) Stat (unknown) (no (unknown) (unknown) Patient (units (unkno wn) date) Disposition: unknown) Admitted As Inpatient (unknown) (no (unknown) (unknown) Patient History (units (unknown) date) unknown) (unknown) (no (unknown) (unknown) Patient: (units (unkno wn) date) Pascual Padilla unknown) MR#: (unknown) (no (unknown) (unknown) Pelvic Nodes: No (units (unknown) date) enlarged lymph unknown) nodes.? (unknown) (no (unknown) (unknown) Pelvic Organs:? (units (unknown) date) Unremarkable.? ? unknown) (unknown) (no (unknown) (unknown) Penicillins (units (un known) date) Allergy Rash unknown) Verified 01/31/22 19:12 (unknown) (no (unknown) (unknown) Peritoneum:? No (units (unknown) date) abnormal unknown) intraperitoneal fluid.? No free air.? (unknown) (no (unknown) (unknown) Pigtail catheter (units (unknown) date) in place in the unknown) right ureter that looks like it was placed in (unknown) (no (unknown) (unknown) Plt Count (units (unkn own) date) (150-400) X103/uL unknown) (unknown) (no (unknown) (unknown) Plt Count 156 (units ( unknown) date) (150-400) X103/uL unknown) (unknown) (no (unknown) (unknown) Point of care (units ( unknown) date) testing: unknown) (unknown) (no (unknown) (unknown) Potassium (units (unkn own) date) (3.4-5.1) mmol/L unknown) (unknown) (no (unknown) (unknown) Potassium 3.6 (units ( unknown) date) (3.4-5.1) mmol/L unknown) (unknown) (no (unknown) (unknown) Prescriptions: (units (unknown) date) unknown) (unknown) (no (unknown) (unknown) Previous Rx's (units ( unknown) date) unknown) (unknown) (no (unknown) (unknown) Procalcitonin (units ( unknown) date) (<0.5) ng/mL unknown) (unknown) (no (unknown) (unknown) Procalcitonin 4.70 (units (unknown) date) H (<0.5) ng/mL unknown) (unknown) (no (unknown) (unknown) Procalcitonin Stat (units (unknown) date) unknown) (unknown) (no (unknown) (unknown) Propofol (units (unkno wn) date) (Propofol) 1,000 mg unknown) in 100 mls @ 2.762 mls/hr IV TITRATE ANGI; Protocol (unknown) (no (unknown) (unknown) Prothrombin Time (units (unknown) date) INR Stat unknown) (unknown) (no (unknown) (unknown) Psych: (units (unkno wn) date) Cooperative, unknown) significant fatigue (unknown) (no (unknown) (unknown) Pulse Oximetry 100 (units (unknown) date) unknown) (unknown) (no (unknown) (unknown) Pulse Oximetry 81 (units (unknown) date) L unknown) (unknown) (no (unknown) (unknown) Pulse Oximetry 94 (units (unknown) date) unknown) (unknown) (no (unknown) (unknown) Pulse Oximetry 97 (units (unknown) date) 95 unknown) (unknown) (no (unknown) (unknown) Pulse Oximetry 97 (units (unknown) date) 96 unknown) (unknown) (no (unknown) (unknown) Pulse Oximetry 98 (units (unknown) date) 01/31/22 19:06 unknown) (unknown) (no (unknown) (unknown) Pulse Oximetry 98 (units (unknown) date) 95 unknown) (unknown) (no (unknown) (unknown) Pulse Oximetry 98 (units (unknown) date) 97 unknown) (unknown) (no (unknown) (unknown) Pulse Oximetry 99 (units (unknown) date) unknown) (unknown) (no (unknown) (unknown) Pulse Rate 117 H (units (unknown) date) 01/31/22 19:06 unknown) (unknown) (no (unknown) (unknown) Pulse Rate 117 H (units (unknown) date) 124 H unknown) (unknown) (no (unknown) (unknown) Pulse Rate 118 H (units (unknown) date) 67 unknown) (unknown) (no (unknown) (unknown) Pulse Rate 119 H (units (unknown) date) 120 H unknown) (unknown) (no (unknown) (unknown) Pulse Rate 119 H (units (unknown) date) unknown) (unknown) (no (unknown) (unknown) Pulse Rate 122 H (units (unknown) date) 116 H unknown) (unknown) (no (unknown) (unknown) Pulse Rate 122 H (units (unknown) date) unknown) (unknown) (no (unknown) (unknown) Pulse Rate 124 H (units (unknown) date) 139 H unknown) (unknown) (no (unknown) (unknown) Pulse Rate 143 H (units (unknown) date) unknown) (unknown) (no (unknown) (unknown) Pulse Rate 144 H (units (unknown) date) unknown) (unknown) (no (unknown) (unknown) QTC prolonged at (units (unknown) date) 583 milliseconds unknown) (unknown) (no (unknown) (unknown) RBC (4.5-5.9) (units ( unknown) date) X106/uL unknown) (unknown) (no (unknown) (unknown) RBC 4.66 (4.5-5.9) (units (unknown) date) X106/uL unknown) (unknown) (no (unknown) (unknown) RBC Morphology See (units (unknown) date) below unknown) (unknown) (no (unknown) (unknown) RBC Morphology (units (unknown) date) unknown) (unknown) (no (unknown) (unknown) RDW (11.6-14.8) % (units (unknown) date) unknown) (unknown) (no (unknown) (unknown) RDW 14.0 (units (unkno wn) date) (11.6-14.8) % unknown) (unknown) (no (unknown) (unknown) RT Consult Eval (units (unknown) date) and Treat Now unknown) (unknown) (no (unknown) (unknown) Radiologist's (units ( unknown) date) Impression: unknown) (unknown) (no (unknown) (unknown) Referrals: (units (unk nown) date) unknown) (unknown) (no (unknown) (unknown) Related Data (units (u nknown) date) unknown) (unknown) (no (unknown) (unknown) Remainder of (units (u nknown) date) complete review of unknown) systems is otherwise unremarkable except for (unknown) (no (unknown) (unknown) Respiratory Rate (units (unknown) date) 25 H 42 H unknown) (unknown) (no (unknown) (unknown) Respiratory Rate (units (unknown) date) 25 H unknown) (unknown) (no (unknown) (unknown) Respiratory Rate (units (unknown) date) 30 H unknown) (unknown) (no (unknown) (unknown) Respiratory Rate (units (unknown) date) 31 H unknown) (unknown) (no (unknown) (unknown) Respiratory Rate (units (unknown) date) 35 H 01/31/22 19:06 unknown) (unknown) (no (unknown) (unknown) Respiratory Rate (units (unknown) date) 35 H unknown) (unknown) (no (unknown) (unknown) Respiratory Rate (units (unknown) date) 37 H unknown) (unknown) (no (unknown) (unknown) Respiratory Rate (units (unknown) date) 39 H 41 H unknown) (unknown) (no (unknown) (unknown) Respiratory Rate (units (unknown) date) 40 H unknown) (unknown) (no (unknown) (unknown) Respiratory Rate (units (unknown) date) 43 H unknown) (unknown) (no (unknown) (unknown) Respiratory: Lungs (units (unknown) date) are clear to unknown) auscultation, no wheezing no rales no rhonchi. (unknown) (no (unknown) (unknown) Result diagrams: (units (unknown) date) unknown) (unknown) (no (unknown) (unknown) Review of Systems (units (unknown) date) unknown) (unknown) (no (unknown) (unknown) SARS-CoV-2 (PCR) (units (unknown) date) (Negative) unknown) (unknown) (no (unknown) (unknown) SARS-CoV-2 (PCR) (units (unknown) date) Negative (Negative) unknown) (unknown) (no (unknown) (unknown) Seg Neutrophils % (units (unknown) date) (38-70) % unknown) (unknown) (no (unknown) (unknown) Seg Neutrophils % (units (unknown) date) 82.0 H (38-70) % unknown) (unknown) (no (unknown) (unknown) Septic Shock (units (u nknown) date) Criteria unknown) (unknown) (no (unknown) (unknown) Septic Shock (units (u nknown) date) Determination. the unknown) patient has been screened and (unknown) (no (unknown) (unknown) Severe Sepsis (units ( unknown) date) Criteria unknown) (unknown) (no (unknown) (unknown) Severe Sepsis (units ( unknown) date) Determination. the unknown) patient has been screened and (unknown) (no (unknown) (unknown) Signed By: (units (unk nown) date) unknown) (unknown) (no (unknown) (unknown) Sinus tachycardia (units (unknown) date) at a rate of 116 unknown) (unknown) (no (unknown) (unknown) Skin: Pale but (units (unknown) date) otherwise Warm and unknown) dry, no rashes (unknown) (no (unknown) (unknown) Smoking Status: (units (unknown) date) Never smoker unknown) (unknown) (no (unknown) (unknown) Social History (units (unknown) date) (Reviewed 01/31/22 unknown) @ 21:45 by Kyleigh Castellanos MD) (unknown) (no (unknown) (unknown) Sodium (137-145) (units (unknown) date) mmol/L unknown) (unknown) (no (unknown) (unknown) Sodium 135 L (units (u nknown) date) (137-145) mmol/L unknown) (unknown) (no (unknown) (unknown) Sodium Chloride (units (unknown) date) (Normal Saline unknown) 0.9%) 2,762.37 mls @ 920.79 mls/hr 30 ml/kg (unknown) (no (unknown) (unknown) Spleen:? (units (unkno wn) date) Unremarkable.? ? unknown) (unknown) (no (unknown) (unknown) Stated complaint: (units (unknown) date) Vomiting, Stomach unknown) cramps, SOB (unknown) (no (unknown) (unknown) Stomach and (units (un known) date) Bowel:? Stomach, unknown) small bowel loops, and colon are unremarkable.? (unknown) (no (unknown) (unknown) Stop: 01/31/22 (units (unknown) date) 20:06 unknown) (unknown) (no (unknown) (unknown) Stop: 01/31/22 (units (unknown) date) 21:04 unknown) (unknown) (no (unknown) (unknown) Stop: 01/31/22 (units (unknown) date) 21:42 unknown) (unknown) (no (unknown) (unknown) Stop: 01/31/22 (units (unknown) date) 22:13 unknown) (unknown) (no (unknown) (unknown) Stop: 01/31/22 (units (unknown) date) 22:50 unknown) (unknown) (no (unknown) (unknown) Stop: 01/31/22 (units (unknown) date) 23:01 unknown) (unknown) (no (unknown) (unknown) Stop: 02/01/22 (units (unknown) date) 04:48 unknown) (unknown) (no (unknown) (unknown) Substance Use (units ( unknown) date) Type: does not use unknown) (unknown) (no (unknown) (unknown) Subtle lateral ST (units (unknown) date) depression unknown) (unknown) (no (unknown) (unknown) Surgical changes (units (unknown) date) and devices:? unknown) None.? (unknown) (no (unknown) (unknown) Temperature 98.3 F (units (unknown) date) 01/31/22 19:06 unknown) (unknown) (no (unknown) (unknown) Temperature 98.3 F (units (unknown) date) unknown) (unknown) (no (unknown) (unknown) Temperature (units (un known) date) unknown) (unknown) (no (unknown) (unknown) The left (units (unkno wn) date) unknown) (unknown) (no (unknown) (unknown) Time Seen by (units (u nknown) date) Provider: 10/09/22 unknown) 19:43 (unknown) (no (unknown) (unknown) Time Septic Shock (units (unknown) date) diagnosed: [ ] unknown) (unknown) (no (unknown) (unknown) Total Bilirubin (units (unknown) date) (0.2-1.3) mg/dL unknown) (unknown) (no (unknown) (unknown) Total Bilirubin (units (unknown) date) 2.2 H (0.2-1.3) unknown) mg/dL (unknown) (no (unknown) (unknown) Total Counted 100 (units (unknown) date) unknown) (unknown) (no (unknown) (unknown) Total Counted (units ( unknown) date) unknown) (unknown) (no (unknown) (unknown) Total Creatine (units (unknown) date) Kinase (55-170) U/L unknown) (unknown) (no (unknown) (unknown) Total Creatine (units (unknown) date) Kinase 59 (55-170) unknown) U/L (unknown) (no (unknown) (unknown) Total Protein (units ( unknown) date) (6.3-8.2) g/dL unknown) (unknown) (no (unknown) (unknown) Total Protein 7.6 (units (unknown) date) (6.3-8.2) g/dL unknown) (unknown) (no (unknown) (unknown) Trop I [Troponin (units (unknown) date) I] Stat unknown) (unknown) (no (unknown) (unknown) Troponin + CK (units ( unknown) date) Cardiac Panel Stat unknown) (unknown) (no (unknown) (unknown) Troponin I (units (unk nown) date) (0.01-0.034) ng/mL unknown) (unknown) (no (unknown) (unknown) Troponin I 0.608 (units (unknown) date) H* (0.01-0.034) unknown) ng/mL (unknown) (no (unknown) (unknown) Troponin I 0.924 (units (unknown) date) H* (0.01-0.034) unknown) ng/mL (unknown) (no (unknown) (unknown) Troponin is (units (un known) date) elevated at 0.9-4. unknown) Priors are not available. He does not have a (unknown) (no (unknown) (unknown) Type 2 diabetes (units (unknown) date) mellitus unknown) (unknown) (no (unknown) (unknown) Ur Culture (units (unk nown) date) Indicated? Specimen unknown) cultured (unknown) (no (unknown) (unknown) Ur Culture (units (unk nown) date) Indicated? unknown) (unknown) (no (unknown) (unknown) Ur Leukocyte (units (u nknown) date) Esterase (NEGATIVE) unknown) (unknown) (no (unknown) (unknown) Ur Leukocyte (units (u nknown) date) Esterase 2+ H unknown) (NEGATIVE) (unknown) (no (unknown) (unknown) Ur Specific (units (un known) date) [place] unknown) (1.000-1.035) (unknown) (no (unknown) (unknown) Ur Specific (units (un known) date) [place] 1.010 unknown) (1.000-1.035) (unknown) (no (unknown) (unknown) Ur Squamous Epith (units (unknown) date) Cells (0-5/HPF) unknown) (unknown) (no (unknown) (unknown) Ur Squamous Epith (units (unknown) date) Cells None seen unknown) (0-5/HPF) (unknown) (no (unknown) (unknown) Urinalysis and (units (unknown) date) Microscopic Stat unknown) (unknown) (no (unknown) (unknown) Urine Appearance (units (unknown) date) Sl cloudy unknown) (unknown) (no (unknown) (unknown) Urine Appearance (units (unknown) date) unknown) (unknown) (no (unknown) (unknown) Urine Bacteria (units (unknown) date) (None) unknown) (unknown) (no (unknown) (unknown) Urine Bacteria (units (unknown) date) Many (>30) H (None) unknown) (unknown) (no (unknown) (unknown) Urine Bilirubin (units (unknown) date) (NEGATIVE) unknown) (unknown) (no (unknown) (unknown) Urine Bilirubin (units (unknown) date) Negative (NEGATIVE) unknown) (unknown) (no (unknown) (unknown) Urine Color Yellow (units (unknown) date) unknown) (unknown) (no (unknown) (unknown) Urine Color (units (un known) date) unknown) (unknown) (no (unknown) (unknown) Urine Culture Stat (units (unknown) date) unknown) (unknown) (no (unknown) (unknown) Urine Dip (units (unkn own) date) unknown) (unknown) (no (unknown) (unknown) Urine Glucose (UA) (units (unknown) date) (Negative) g/dL unknown) (unknown) (no (unknown) (unknown) Urine Glucose (UA) (units (unknown) date) Negative (Negative) unknown) g/dL (unknown) (no (unknown) (unknown) Urine Ketones (units ( unknown) date) (NEGATIVE) unknown) (unknown) (no (unknown) (unknown) Urine Ketones (units ( unknown) date) Negative (NEGATIVE) unknown) (unknown) (no (unknown) (unknown) Urine Nitrate (units ( unknown) date) (Negative) unknown) (unknown) (no (unknown) (unknown) Urine Nitrate (units ( unknown) date) Negative (Negative) unknown) (unknown) (no (unknown) (unknown) Urine Occult Blood (units (unknown) date) (Negative) unknown) (unknown) (no (unknown) (unknown) Urine Occult Blood (units (unknown) date) 1+ H (Negative) unknown) (unknown) (no (unknown) (unknown) Urine Protein (units ( unknown) date) (Negative) unknown) (unknown) (no (unknown) (unknown) Urine Protein 1+ H (units (unknown) date) (Negative) unknown) (unknown) (no (unknown) (unknown) Urine RBC (units (unkn own) date) (0-5/HPF) unknown) (unknown) (no (unknown) (unknown) Urine RBC 0-1/hpf (units (unknown) date) (0-5/HPF) unknown) (unknown) (no (unknown) (unknown) Urine Specific (units (unknown) date) [place] 1.02 unknown) (unknown) (no (unknown) (unknown) Urine Urobilinogen (units (unknown) date) (0.2) E.U./dL unknown) (unknown) (no (unknown) (unknown) Urine Urobilinogen (units (unknown) date) 0.2 (0.2) E.U./dL unknown) (unknown) (no (unknown) (unknown) Urine WBC (units (unkn own) date) (0-5/HPF) unknown) (unknown) (no (unknown) (unknown) Urine WBC (units (unkn own) date) 30-100/hpf H unknown) (0-5/HPF) (unknown) (no (unknown) (unknown) Urine pH (4.5-8.0) (units (unknown) date) unknown) (unknown) (no (unknown) (unknown) Urine pH 5.0 (units (u nknown) date) (4.5-8.0) unknown) (unknown) (no (unknown) (unknown) Ventral Wall: ? No (units (unknown) date) hernias.? unknown) (unknown) (no (unknown) (unknown) Vessels:? Aorta (units (unknown) date) and inferior vena unknown) cava are normal in size.? (unknown) (no (unknown) (unknown) Vital Signs - 8 hr (units (unknown) date) unknown) (unknown) (no (unknown) (unknown) Vital Signs (units (un known) date) unknown) (unknown) (no (unknown) (unknown) Vital signs: (units (u nknown) date) unknown) (unknown) (no (unknown) (unknown) WBC (4.5-11.0) (units (unknown) date) X103/uL unknown) (unknown) (no (unknown) (unknown) WBC 29.1 H (units (unk nown) date) (4.5-11.0) X103/uL unknown) (unknown) (no (unknown) (unknown) Was initially (units ( unknown) date) hypertensive is unknown) significantly tachycardic. Ultrasound for central (unknown) (no (unknown) (unknown) Within 3 hours (units (unknown) date) unknown) (unknown) (no (unknown) (unknown) Within 6 hours (if (units (unknown) date) continued unknown) hypotension after fluids or initial lactate >4) (unknown) (no (unknown) (unknown) XR chest 2V Stat (units (unknown) date) unknown) (unknown) (no (unknown) (unknown) [ ] 2 SIRS (units (unk nown) date) Criteria met unknown) (unknown) (no (unknown) (unknown) [ ] 30ml/kg fluid (units (unknown) date) unknown) (unknown) (no (unknown) (unknown) [ ] ABW used (units (u nknown) date) unknown) (unknown) (no (unknown) (unknown) [ ] BP < 90 or MAP (units (unknown) date) <65, >40mm decrease unknown) from normal baseline (unknown) (no (unknown) (unknown) [ ] Creat > 2.0 (units (unknown) date) unknown) (unknown) (no (unknown) (unknown) [ ] DOES NOT meet (units (unknown) date) criteria for septic unknown) shock (unknown) (no (unknown) (unknown) [ ] DOES NOT meet (units (unknown) date) criteria for severe unknown) sepsis (unknown) (no (unknown) (unknown) [ ] DOES meet (units ( unknown) date) criteria for septic unknown) shock (unknown) (no (unknown) (unknown) [ ] Evidence of at (units (unknown) date) least 1 organ unknown) system dysfunction (unknown) (no (unknown) (unknown) [ ] IBW (33.6) (units (unknown) date) used due to BMI > unknown) 30 (unknown) (no (unknown) (unknown) [ ] Initiate (units (u nknown) date) vasopressor therapy unknown) if persistent hypotension after adequate fluid (unknown) (no (unknown) (unknown) [ ] RR >20 (units (unk nown) date) unknown) (unknown) (no (unknown) (unknown) [ ] SBP ,90 or MAP (units (unknown) date) , 65 unknown) (unknown) (no (unknown) (unknown) [ ] altered mental (units (unknown) date) status unknown) (unknown) (no (unknown) (unknown) [ ] documentation (units (unknown) date) of septic shock unknown) (unknown) (no (unknown) (unknown) [ ] lactic > 4 at (units (unknown) date) any time unknown) (unknown) (no (unknown) (unknown) [ ] lactic redrawn (units (unknown) date) within 6 hours if unknown) >2.0 (unknown) (no (unknown) (unknown) [ ] mechanical (units (unknown) date) ventilation unknown) (unknown) (no (unknown) (unknown) [ ] patient or (units (unknown) date) advocate declining unknown) fluid administration after shared decision (unknown) (no (unknown) (unknown) [ ] platelet count (units (unknown) date) < 100k unknown) (unknown) (no (unknown) (unknown) [ ] provider (units (u nknown) date) documentation of unknown) severe sepsis (unknown) (no (unknown) (unknown) [ ] repeat volume (units (unknown) date) status and tissue unknown) perfusion assessment documented after fluid (unknown) (no (unknown) (unknown) [ x ] DOES meet (units (unknown) date) criteria for severe unknown) sepsis (unknown) (no (unknown) (unknown) [ x ] Lactate > 2 (units (unknown) date) unknown) (unknown) (no (unknown) (unknown) [ x ] broad (units (un known) date) spectrum abx unknown) started (unknown) (no (unknown) (unknown) [ x ] fever or (units (unknown) date) hypothermia unknown) (unknown) (no (unknown) (unknown) [ x ] lactic acid (units (unknown) date) level checked unknown) (unknown) (no (unknown) (unknown) [ x ] (units (unkno wn) date) leukocytosis/leukop unknown) enia/bandemia (unknown) (no (unknown) (unknown) [ x] HR >90 (units (un known) date) unknown) (unknown) (no (unknown) (unknown) [Embedded Image (units (unknown) date) Not Available] unknown) (unknown) (no (unknown) (unknown) [x ] T. Bili > 2.0 (units (unknown) date) unknown) (unknown) (no (unknown) (unknown) [x ] bacterial (units (unknown) date) source of infection unknown) suspected and documented (unknown) (no (unknown) (unknown) [x ] blood cx (units ( unknown) date) drawn prior to abx unknown) (unknown) (no (unknown) (unknown) a incontinence (units (unknown) date) pad. He has not unknown) been having any diarrhea or constipation. He (unknown) (no (unknown) (unknown) a slight (units (unkno wn) date) unknown) (unknown) (no (unknown) (unknown) account. (units (unkno wn) date) unknown) (unknown) (no (unknown) (unknown) administered. His (units (unknown) date) abdominal pain is unknown) significantly improved. He is still (unknown) (no (unknown) (unknown) admission and (units ( unknown) date) after the CT scan unknown) has been completed the patient will go directly (unknown) (no (unknown) (unknown) alcohol intake (units (unknown) date) frequency: unknown) holidays/special occasions only (unknown) (no (unknown) (unknown) alcohol intake: (units (unknown) date) current unknown) (unknown) (no (unknown) (unknown) amlodipine 10 mg (units (unknown) date) tablet 10 mg PO unknown) DAILY 01/27/18 07/13/19 (unknown) (no (unknown) (unknown) amlodipine 10 mg (units (unknown) date) tablet unknown) (unknown) (no (unknown) (unknown) and normotensive (units (unknown) date) with oxygen unknown) saturations 99% on room air. (unknown) (no (unknown) (unknown) any significant (units (unknown) date) cough, chest pain, unknown) palpitations, lower extremity edema. He (unknown) (no (unknown) (unknown) appendicitis. (units ( unknown) date) unknown) (unknown) (no (unknown) (unknown) appropriate (units (un known) date) sedation. No unknown) significant debris or edema coming up the ET tube. (unknown) (no (unknown) (unknown) asymmetries or (units (unknown) date) abnormalities unknown) (unknown) (no (unknown) (unknown) been significantly (units (unknown) date) fatigued but is unknown) otherwise cognitively intact. (unknown) (no (unknown) (unknown) began with (units (unk nown) date) ceftriaxone and unknown) Flagyl thinking that this was a GI source. (unknown) (no (unknown) (unknown) bolus was (units (unkn own) date) completed at unknown) [Date/Time] (unknown) (no (unknown) (unknown) bolus (units (unkno wn) date) unknown) (unknown) (no (unknown) (unknown) by the bladder (units (unknown) date) outlet obstruction unknown) and chronic urinary retention. (unknown) (no (unknown) (unknown) capillary refill (units (unknown) date) and no evidence of unknown) hypotension. Findings and concerns are (unknown) (no (unknown) (unknown) chlorthalidone 50 (units (unknown) date) mg tablet 50 mg PO unknown) DAILY 01/27/18 07/13/19 (unknown) (no (unknown) (unknown) chlorthalidone 50 (units (unknown) date) mg tablet unknown) (unknown) (no (unknown) (unknown) collecting (units (unk nown) date) unknown) (unknown) (no (unknown) (unknown) degree Mya renal (units (unknown) date) edema.? A urinary unknown) tract stone, is not seen on the left. (unknown) (no (unknown) (unknown) different (units (unkn own) date) urologist. unknown) (unknown) (no (unknown) (unknown) down and Urology (units (unknown) date) available to unknown) consult he felt that admission to [facility] (unknown) (no (unknown) (unknown) exenatide (units (unkn own) date) microspheres 2 unknown) mg/0.85 2 mg SUBCUT QWEEK 07/05/19 07/13/19 (unknown) (no (unknown) (unknown) failure. Current (units (unknown) date) access is 2 20 unknown) gauge peripheral IVs (unknown) (no (unknown) (unknown) fatigue, overall (units (unknown) date) altered mental unknown) status, increasing abdominal pain. He denies (unknown) (no (unknown) (unknown) fenofibrate (units (un known) date) nanocrystallized unknown) 145 145 mg PO DAILY 07/05/19 07/13/19 (unknown) (no (unknown) (unknown) fenofibrate (units (un known) date) nanocrystallized unknown) 145 mg tablet (unknown) (no (unknown) (unknown) for such. He is (units (unknown) date) not complaining of unknown) chest pain. Will repeat. (unknown) (no (unknown) (unknown) has been passing (units (unknown) date) gas. Reports no unknown) significant headache. They report that he has (unknown) (no (unknown) (unknown) history of known (units (unknown) date) coronary disease unknown) but does have a all appropriate risk factors (unknown) (no (unknown) (unknown) household members: (units (unknown) date) spouse unknown) (unknown) (no (unknown) (unknown) hydronephrosis or (units (unknown) date) unknown) (unknown) (no (unknown) (unknown) hyperlipidemia, (units (unknown) date) prior kidney stones unknown) presents with 12 hours of increasing fevers, (unknown) (no (unknown) (unknown) infuse over 3 hr (units (unknown) date) (2762.37 ml) IV NOW unknown) ONE (unknown) (no (unknown) (unknown) insulin glargine (units (unknown) date) 100 unit/mL (3 26 unknown) units SUBCUT DAILY 01/27/18 07/13/19 (unknown) (no (unknown) (unknown) insulin glargine (units (unknown) date) 100 unit/mL (3 mL) unknown) insulin pen (unknown) (no (unknown) (unknown) is placed. Urine (units (unknown) date) does look acutely unknown) infected. (unknown) (no (unknown) (unknown) kidney demonstrates (units (unknown) date) slight prominence unknown) of the central renal collecting system and (unknown) (no (unknown) (unknown) levofloxacin [From (units (unknown) date) Levaquin] Allergy unknown) Rash Verified 01/31/22 19:12 (unknown) (no (unknown) (unknown) line placement (units (unknown) date) shows no evidence unknown) of volume depletion. He is given 5 mg of IV (unknown) (no (unknown) (unknown) looks like a (units (u nknown) date) urinary tract unknown) infection. In the setting of acute urinary (unknown) (no (unknown) (unknown) losartan 100 mg (units (unknown) date) tablet 100 mg PO unknown) DAILY 01/27/18 07/13/19 (unknown) (no (unknown) (unknown) losartan 100 mg (units (unknown) date) tablet unknown) (unknown) (no (unknown) (unknown) mL subcutaneous (units (unknown) date) auto-injector unknown) (unknown) (no (unknown) (unknown) mL) subcutaneous (units (unknown) date) pen unknown) (unknown) (no (unknown) (unknown) making (units (unkno wn) date) conversation unknown) (unknown) (no (unknown) (unknown) metformin 500 mg (units (unknown) date) tablet 500 mg PO unknown) BID 01/27/18 07/13/19 (unknown) (no (unknown) (unknown) metformin 500 mg (units (unknown) date) tablet unknown) (unknown) (no (unknown) (unknown) metoprolol with (units (unknown) date) his rate coming unknown) down from a sinus tach in the 160 range to the (unknown) (no (unknown) (unknown) mg tablet (units (unkn own) date) unknown) (unknown) (no (unknown) (unknown) minor prominence (units (unknown) date) of the renal unknown) collecting system on the left without obvious (unknown) (no (unknown) (unknown) mondays (units (unkno wn) date) unknown) (unknown) (no (unknown) (unknown) no flank pain (units ( unknown) date) unknown) (unknown) (no (unknown) (unknown) not (units (unkno wn) date) unknown) (unknown) (no (unknown) (unknown) of oxygen. Given (units (unknown) date) Reglan. With unknown) prolonged QT I do not want to use Zofran. (unknown) (no (unknown) (unknown) oxycodone 5 mg (units (unknown) date) capsule 5 mg PO Q4H unknown) PRN pain #14 caps 07/13/19 (unknown) (no (unknown) (unknown) oxycodone 5 mg (units (unknown) date) capsule unknown) (unknown) (no (unknown) (unknown) pain for further (units (unknown) date) evaluation. unknown) Tachycardic, tachypneic, afebrile on presentation (unknown) (no (unknown) (unknown) peripheral pulse (units (unknown) date) evaluation, skin unknown) exam (unknown) (no (unknown) (unknown) pigtail right (units ( unknown) date) ureteral stent unknown) without hydronephrosis or hydroureter. Urine (unknown) (no (unknown) (unknown) pigtail (units (unkno wn) date) unknown) (unknown) (no (unknown) (unknown) prior to (units (unkno wn) date) determining acuity unknown) of hospital needs for admission. (unknown) (no (unknown) (unknown) retained (units (unkno wn) date) calculus.? On the unknown) left there is mild prominence of the central renal (unknown) (no (unknown) (unknown) retention, Flash (units (unknown) date) pulmonary edema, unknown) Respiratory failure (unknown) (no (unknown) (unknown) retention, pigtail (units (unknown) date) catheter still in unknown) place and mild prominence of the collecting (unknown) (no (unknown) (unknown) reviewed with the (units (unknown) date) patient and his unknown) daughter. Will wait to see repeat troponin (unknown) (no (unknown) (unknown) right ureteral (units (unknown) date) stent.? There is no unknown) right-sided hydronephrosis or hydroureter.? (unknown) (no (unknown) (unknown) rosuvastatin 40 mg (units (unknown) date) tablet 40 mg PO unknown) DAILY 07/05/19 07/13/19 (unknown) (no (unknown) (unknown) rosuvastatin 40 mg (units (unknown) date) tablet unknown) (unknown) (no (unknown) (unknown) sample is obtained (units (unknown) date) and 1725 cc of unknown) urine are initially drained. Ramírez catheter (unknown) (no (unknown) (unknown) saturations are (units (unknown) date) dropping slightly unknown) 87% with a good waveform. He started on 2 L (unknown) (no (unknown) (unknown) saturations. (units (u nknown) date) Patient is moved to unknown) room 1 intubated with central line placed. (unknown) (no (unknown) (unknown) seen. (units (unkno wn) date) unknown) (unknown) (no (unknown) (unknown) showing signs of (units (unknown) date) good peripheral unknown) perfusion with warm extremities with good (unknown) (no (unknown) (unknown) shows flash (units (un known) date) pulmonary edema. unknown) (unknown) (no (unknown) (unknown) signs of (units (unkno wn) date) obstruction. unknown) (unknown) (no (unknown) (unknown) states that he is (units (unknown) date) able to void but it unknown) is only intervals and he frequently wears (unknown) (no (unknown) (unknown) system but an (units (u nknown) date) obstructive urinary unknown) tract stone more distally within the ureter is (unknown) (no (unknown) (unknown) system on the (units ( unknown) date) right without unknown) evidence of stone urology will be consult today. (unknown) (no (unknown) (unknown) taken into (units (unk nown) date) unknown) (unknown) (no (unknown) (unknown) tamsulosin 0.4 mg (units (unknown) date) capsule 0.4 mg PO unknown) DAILY #60 caps 07/13/19 (unknown) (no (unknown) (unknown) tamsulosin 0.4 mg (units (unknown) date) capsule unknown) (unknown) (no (unknown) (unknown) that included in (units (unknown) date) the HPI. unknown) (unknown) (no (unknown) (unknown) to direct (units (unkn own) date) questions unknown) (unknown) (no (unknown) (unknown) to the intensive (units (unknown) date) care unit. unknown) (unknown) (no (unknown) (unknown) unremarkable.? (units (unknown) date) unknown) (unknown) (no (unknown) (unknown) would be (units (unkno wn) date) appropriate. unknown) Patient is doing better with appropriate sedation. Result panel 23 (unknown) (no (unknown) (unknown) (no value) (units (unk nown) date) unknown) (unknown) (no (unknown) (unknown) (Bydureon BCise) (units (unknown) date) unknown) (unknown) (no (unknown) (unknown) 0.4 mg PO DAILY (units (unknown) date) Qty: 60 0RF unknown) (unknown) (no (unknown) (unknown) 10 mg PO DAILY (units (unknown) date) unknown) (unknown) (no (unknown) (unknown) 01/31/22 01/31/22 (units (unknown) date) 01/31/22 unknown) Range/Units (unknown) (no (unknown) (unknown) 01/31/22 19:24 (units (unknown) date) unknown) (unknown) (no (unknown) (unknown) 01/31/22 20:00 (units (unknown) date) unknown) (unknown) (no (unknown) (unknown) 01/31/22 20:02 (units (unknown) date) unknown) (unknown) (no (unknown) (unknown) 01/31/22 20:03 (units (unknown) date) unknown) (unknown) (no (unknown) (unknown) 01/31/22 20:14 (units (unknown) date) unknown) (unknown) (no (unknown) (unknown) 01/31/22 20:28 (units (unknown) date) unknown) (unknown) (no (unknown) (unknown) 01/31/22 22:13 (units (unknown) date) unknown) (unknown) (no (unknown) (unknown) 01/31/22 22:31 (units (unknown) date) unknown) (unknown) (no (unknown) (unknown) 01/31/22 (units (unkno wn) date) unknown) (unknown) (no (unknown) (unknown) 100 mg PO DAILY (units (unknown) date) unknown) (unknown) (no (unknown) (unknown) 1000pm patient is (units (unknown) date) re-evaluated. He is unknown) having fever and rigors and Tylenol as (unknown) (no (unknown) (unknown) 1015pm patient is (units (unknown) date) having an episode unknown) of emesis. Currently afebrile. Oxygen (unknown) (no (unknown) (unknown) 1055 Acute (units (unk nown) date) deterioration with unknown) severe respiratory strip distress, dropping (unknown) (no (unknown) (unknown) 1105 care is (units (u nknown) date) reviewed with the unknown) chicken boner, Dr. Pierson. With troponin coming (unknown) (no (unknown) (unknown) 1110 care is (units (u nknown) date) reviewed with unknown) Sung, urology. He will formally consult. (unknown) (no (unknown) (unknown) 1120 patient is (units (unknown) date) taken to the CT unknown) scanner and then will be transferred to the ICU. (unknown) (no (unknown) (unknown) 130 range. Blood (units (unknown) date) pressure was unknown) initially 200/110 and is now down to 125/30 with (unknown) (no (unknown) (unknown) 145 mg PO DAILY (units (unknown) date) unknown) (unknown) (no (unknown) (unknown) 19:06 01/31/22 (units (unknown) date) unknown) (unknown) (no (unknown) (unknown) 19:19 01/31/22 (units (unknown) date) unknown) (unknown) (no (unknown) (unknown) 19:20 01/31/22 (units (unknown) date) unknown) (unknown) (no (unknown) (unknown) 19:20 (units (unkno wn) date) unknown) (unknown) (no (unknown) (unknown) 19:30 01/31/22 (units (unknown) date) unknown) (unknown) (no (unknown) (unknown) 19:30 (units (unkno wn) date) unknown) (unknown) (no (unknown) (unknown) 2 mg SUBCUT QWEEK (units (unknown) date) unknown) (unknown) (no (unknown) (unknown) 20:00 01/31/22 (units (unknown) date) unknown) (unknown) (no (unknown) (unknown) 20:00 20:00 20:00 (units (unknown) date) unknown) (unknown) (no (unknown) (unknown) 20:14 22:13 22:13 (units (unknown) date) unknown) (unknown) (no (unknown) (unknown) 20:30 01/31/22 (units (unknown) date) unknown) (unknown) (no (unknown) (unknown) 20:30 (units (unkno wn) date) unknown) (unknown) (no (unknown) (unknown) 20:45 01/31/22 (units (unknown) date) unknown) (unknown) (no (unknown) (unknown) 21:07 (units (unkno wn) date) unknown) (unknown) (no (unknown) (unknown) 21:11 01/31/22 (units (unknown) date) unknown) (unknown) (no (unknown) (unknown) 21:15 01/31/22 (units (unknown) date) unknown) (unknown) (no (unknown) (unknown) 21:30 01/31/22 (units (unknown) date) unknown) (unknown) (no (unknown) (unknown) 21:30 (units (unkno wn) date) unknown) (unknown) (no (unknown) (unknown) 21:46 01/31/22 (units (unknown) date) unknown) (unknown) (no (unknown) (unknown) 21:46 (units (unkno wn) date) unknown) (unknown) (no (unknown) (unknown) 22:00 01/31/22 (units (unknown) date) unknown) (unknown) (no (unknown) (unknown) 22:05 (units (unkno wn) date) unknown) (unknown) (no (unknown) (unknown) 22:15 (units (unkno wn) date) unknown) (unknown) (no (unknown) (unknown) 26 units subcut (units (unknown) date) DAILY unknown) (unknown) (no (unknown) (unknown) 30 particular was (units (unknown) date) initiated. He is unknown) allergic to penicillin so rather than Zosyn (unknown) (no (unknown) (unknown) 40 mg PO DAILY (units (unknown) date) unknown) (unknown) (no (unknown) (unknown) 5 mg PO Q4H PRN (units (unknown) date) (Reason: pain) Qty: unknown) 14 0RF (unknown) (no (unknown) (unknown) 50 mg PO DAILY (units (unknown) date) unknown) (unknown) (no (unknown) (unknown) 500 mg PO BID (units ( unknown) date) unknown) (unknown) (no (unknown) (unknown) 71-year-old (units (un known) date) gentleman presents unknown) acutely ill, febrile pale with severe abdominal (unknown) (no (unknown) (unknown) 71-year-old (units (un known) date) gentleman with unknown) history of hypertension, type 2 diabetes, (unknown) (no (unknown) (unknown) ? 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 (unknown) (no (unknown) (unknown) ABDOMEN: (units (unkno wn) date) unknown) (unknown) (no (unknown) (unknown) ALT (<50) IU/L (units (unknown) date) unknown) (unknown) (no (unknown) (unknown) ALT 16 (<50) IU/L (units (unknown) date) unknown) (unknown) (no (unknown) (unknown) APTT (26-36) (units (u nknown) date) SECONDS unknown) (unknown) (no (unknown) (unknown) APTT 31 (26-36) (units (unknown) date) SECONDS unknown) (unknown) (no (unknown) (unknown) AST (17-59) IU/L (units (unknown) date) unknown) (unknown) (no (unknown) (unknown) AST 31 (17-59) (units (unknown) date) IU/L unknown) (unknown) (no (unknown) (unknown) Abdomen: Mild (units ( unknown) date) distention, diffuse unknown) abdominal pain without rebound or guarding, (unknown) (no (unknown) (unknown) Abdominal Nodes:? (units (unknown) date) No retroperitoneal unknown) or mesenteric adenopathy by size criteria.? (unknown) (no (unknown) (unknown) Acetaminophen (units ( unknown) date) (Acetaminophen 325 unknown) Mg Tablet) 975 mg PO NOW ONE (unknown) (no (unknown) (unknown) Acute kidney (units (u nknown) date) injury with unknown) creatinine increased from 1.3-1.6. Likely compounded (unknown) (no (unknown) (unknown) Acute (units (unkno wn) date) pyelonephritis, unknown) Benign prostatic hyperplasia, Acute urinary retention, (unknown) (no (unknown) (unknown) Additional (units (unk nown) date) Information: unknown) (unknown) (no (unknown) (unknown) Admin: 01/31/22 (units (unknown) date) 20:13 Dose: 200 unknown) mls/hr (unknown) (no (unknown) (unknown) Admit Date/Time: (units (unknown) date) 01/31/22 23:35 unknown) (unknown) (no (unknown) (unknown) Adrenal Glands:? (units (unknown) date) Unremarkable.? ? unknown) (unknown) (no (unknown) (unknown) Age/Sex: 71 / M (units (unknown) date) unknown) (unknown) (no (unknown) (unknown) Albumin (3.5-5.0) (units (unknown) date) g/dL unknown) (unknown) (no (unknown) (unknown) Albumin 4.2 (units (un known) date) (3.5-5.0) g/dL unknown) (unknown) (no (unknown) (unknown) Albumin/Globulin (units (unknown) date) Ratio (1.0-2.8) unknown) (unknown) (no (unknown) (unknown) Albumin/Globulin (units (unknown) date) Ratio 1.2 (1.0-2.8) unknown) (unknown) (no (unknown) (unknown) Alkaline (units (unkno wn) date) Phosphatase unknown) (38-126) U/L (unknown) (no (unknown) (unknown) Alkaline (units (unkno wn) date) Phosphatase 66 unknown) (38-126) U/L (unknown) (no (unknown) (unknown) Allergies (units (unkn own) date) unknown) (unknown) (no (unknown) (unknown) Allergy/AdvReac (units (unknown) date) Type Severity unknown) Reaction Status Date / Time (unknown) (no (unknown) (unknown) Amiodarone HCl (units (unknown) date) (Amiodarone 150 unknown) Mg/3 Ml Vial) 300 mg IV NOW ONE (unknown) (no (unknown) (unknown) Amiodarone (units (unk nown) date) HCl/Dextrose unknown) (Nexterone) 360 mg in 200 mls @ 33.333 mls/hr IV NOW (unknown) (no (unknown) (unknown) Anisocytosis 1+ H (units (unknown) date) unknown) (unknown) (no (unknown) (unknown) Anisocytosis (units (u nknown) date) unknown) (unknown) (no (unknown) (unknown) Attestation: (units (u nknown) date) unknown) (unknown) (no (unknown) (unknown) 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, unknown) Ramírez catheter now in place (unknown) (no (unknown) (unknown) BUN (9-20) mg/dL (units (unknown) date) unknown) (unknown) (no (unknown) (unknown) BUN 22 H (9-20) (units (unknown) date) mg/dL unknown) (unknown) (no (unknown) (unknown) BUN/Creatinine (units (unknown) date) Ratio (6-22) unknown) (unknown) (no (unknown) (unknown) BUN/Creatinine (units (unknown) date) Ratio 13.8 (6-22) unknown) (unknown) (no (unknown) (unknown) Band Neutrophils % (units (unknown) date) (3-7) % unknown) (unknown) (no (unknown) (unknown) Band Neutrophils % (units (unknown) date) 12.0 H (3-7) % unknown) (unknown) (no (unknown) (unknown) Baso # (Auto) Not (units (unknown) date) Reportable unknown) (unknown) (no (unknown) (unknown) Baso # (Auto) (units ( unknown) date) unknown) (unknown) (no (unknown) (unknown) Baso % (Auto) Not (units (unknown) date) Reportable unknown) (unknown) (no (unknown) (unknown) Baso % (Auto) (units ( unknown) date) unknown) (unknown) (no (unknown) (unknown) Bedside Urine (units ( unknown) date) Bilirubin - unknown) Negative (unknown) (no (unknown) (unknown) Bedside Urine (units ( unknown) date) Glucose Negative unknown) (unknown) (no (unknown) (unknown) Bedside Urine (units ( unknown) date) Ketone - Negative unknown) (unknown) (no (unknown) (unknown) Bedside Urine (units ( unknown) date) Leukocytes + 70 unknown) (unknown) (no (unknown) (unknown) Bedside Urine (units ( unknown) date) Nitrite - Negative unknown) (unknown) (no (unknown) (unknown) Bedside Urine (units ( unknown) date) Occult Blood +/ unknown) (unknown) (no (unknown) (unknown) Bedside Urine (units ( unknown) date) Protein + 30 unknown) (unknown) (no (unknown) (unknown) Bedside Urine (units ( unknown) date) Urobilinogen - unknown) Negative (unknown) (no (unknown) (unknown) Bedside Urine pH 6 (units (unknown) date) unknown) (unknown) (no (unknown) (unknown) Biliary ducts:? (units (unknown) date) Unremarkable.? ? unknown) (unknown) (no (unknown) (unknown) Bladder:? (units (unkn own) date) Unremarkable.? ? unknown) (unknown) (no (unknown) (unknown) Blood Culture Stat (units (unknown) date) unknown) (unknown) (no (unknown) (unknown) Blood Pressure (units (unknown) date) 127/80 unknown) (unknown) (no (unknown) (unknown) Blood Pressure (units (unknown) date) 132/79 unknown) (unknown) (no (unknown) (unknown) Blood Pressure (units (unknown) date) 134/75 10 unknown) 19:06 (unknown) (no (unknown) (unknown) Blood Pressure (units (unknown) date) 134/75 139/80 unknown) (unknown) (no (unknown) (unknown) Blood Pressure (units (unknown) date) 136/78 unknown) (unknown) (no (unknown) (unknown) Blood Pressure (units (unknown) date) 137/76 unknown) (unknown) (no (unknown) (unknown) Blood Pressure (units (unknown) date) 138/78 146/84 H unknown) (unknown) (no (unknown) (unknown) Blood Pressure (units (unknown) date) 150/100 H unknown) (unknown) (no (unknown) (unknown) Blood Pressure (units (unknown) date) 153/77 H 128/76 unknown) (unknown) (no (unknown) (unknown) Blood Pressure (units (unknown) date) unknown) (unknown) (no (unknown) (unknown) Bones and chest (units (unknown) date) wall:? No unknown) suspicious bony abnormalities.? Soft tissues appear (unknown) (no (unknown) (unknown) Bones:? (units (unkno wn) date) Unremarkable.? ? unknown) (unknown) (no (unknown) (unknown) Bydureon BCise 2 (units (unknown) date) mg/0.85 mL unknown) auto-injector (unknown) (no (unknown) (unknown) CK-MB (CK-2) Rel (units (unknown) date) Index TNP unknown) (unknown) (no (unknown) (unknown) CK-MB (CK-2) Rel (units (unknown) date) Index unknown) (unknown) (no (unknown) (unknown) CK-MB (CK-2) TNP (units (unknown) date) unknown) (unknown) (no (unknown) (unknown) CK-MB (CK-2) (units (u nknown) date) unknown) (unknown) (no (unknown) (unknown) COVID19 -Nasal (units (unknown) date) RAPID/Pre-Proc Stat unknown) (unknown) (no (unknown) (unknown) CT abdomen pelvis (units (unknown) date) w con Stat unknown) (unknown) (no (unknown) (unknown) CT scan - (units (unkn own) date) abdomen/pelvis: unknown) (unknown) (no (unknown) (unknown) CT scan does not (units (unknown) date) suggest acute unknown) abscess, diverticulitis or appendicitis. Some (unknown) (no (unknown) (unknown) Calcium (8.4-10.2) (units (unknown) date) mg/dL unknown) (unknown) (no (unknown) (unknown) Calcium 8.1 L (units ( unknown) date) (8.4-10.2) mg/dL unknown) (unknown) (no (unknown) (unknown) Carbon Dioxide (units (unknown) date) (22-32) mmol/L unknown) (unknown) (no (unknown) (unknown) Carbon Dioxide 23 (units (unknown) date) (22-32) mmol/L unknown) (unknown) (no (unknown) (unknown) Cardiac: (units (unkno wn) date) Tachycardic without unknown) murmurs (unknown) (no (unknown) (unknown) Care is reviewed (units (unknown) date) with Melita Thompson, unknown) [facility] provider. She accepts (unknown) (no (unknown) (unknown) Ceftriaxone Sodium (units (unknown) date) 2,000 mg/ (Sodium unknown) Chloride) 100 mls @ 200 mls/hr IV NOW ONE (unknown) (no (unknown) (unknown) Chest [XR chest (units (unknown) date) 1V] Stat unknown) (unknown) (no (unknown) (unknown) Chest x-ray: (units (u nknown) date) unknown) (unknown) (no (unknown) (unknown) Chief complaint: (units (unknown) date) Abdominal Pain unknown) (unknown) (no (unknown) (unknown) Chloride (98-107) (units (unknown) date) mmol/L unknown) (unknown) (no (unknown) (unknown) Chloride 96 L (units ( unknown) date) (98-107) mmol/L unknown) (unknown) (no (unknown) (unknown) Chronicity: acute (units (unknown) date) Respiratory failure unknown) complication: unspecified whether with (unknown) (no (unknown) (unknown) Jillian Rosales, (units (unknown) date) MD [Primary Care unknown) Provider] (unknown) (no (unknown) (unknown) Clinical (units (unkno wn) date) Impression: unknown) (unknown) (no (unknown) (unknown) Clinical reason (units (unknown) date) for NOT initiating unknown) fluid bolus: (unknown) (no (unknown) (unknown) Complete Blood (units (unknown) date) Count AUTO DIFF unknown) Stat (unknown) (no (unknown) (unknown) Comprehensive (units ( unknown) date) Metabolic Panel unknown) Stat (unknown) (no (unknown) (unknown) Course (units (unkno wn) date) unknown) (unknown) (no (unknown) (unknown) Creatinine (units (unk nown) date) (0.66-1.25) mg/dL unknown) (unknown) (no (unknown) (unknown) Creatinine 1.60 H (units (unknown) date) (0.66-1.25) mg/dL unknown) (unknown) (no (unknown) (unknown) Critical Care Time (units (unknown) date) unknown) (unknown) (no (unknown) (unknown) Critical Care (units ( unknown) date) Time: Yes unknown) (unknown) (no (unknown) (unknown) Critical care time (units (unknown) date) is separate from unknown) other billable procedures. There is a high (unknown) (no (unknown) (unknown) Currently at a (units (unknown) date) rate of a 130. Post unknown) intubation and central line chest x-ray (unknown) (no (unknown) (unknown) D Dimer Stat (units (u nknown) date) unknown) (unknown) (no (unknown) (unknown) D-Dimer (<500) (units (unknown) date) ng/ml unknown) (unknown) (no (unknown) (unknown) D-Dimer 821 H (units ( unknown) date) (<500) ng/ml unknown) (unknown) (no (unknown) (unknown) : 1950 (units (unknown) date) Acct:[id number] unknown) (unknown) (no (unknown) (unknown) Date of Service: (units (unknown) date) 01/31/22 unknown) (unknown) (no (unknown) (unknown) Departure (units (unkn own) date) unknown) (unknown) (no (unknown) (unknown) Dictated by: Dwayne (units (unknown) date) Jody Meadows on unknown) 01/31/2022 at 20:08 ? ? (unknown) (no (unknown) (unknown) Dictated by: Dwayne (units (unknown) date) Jody Meadows on unknown) 01/31/2022 at 21:21 ? ? (unknown) (no (unknown) (unknown) Discharge Plan (units (unknown) date) unknown) (unknown) (no (unknown) (unknown) Discontinued (units (u nknown) date) Medications unknown) (unknown) (no (unknown) (unknown) Documented By: NR (units (unknown) date) unknown) (unknown) (no (unknown) (unknown) ECG Data (units (unkno wn) date) unknown) (unknown) (no (unknown) (unknown) ED Orders (units (unkn own) date) unknown) (unknown) (no (unknown) (unknown) EKG-12 Lead Stat (units (unknown) date) unknown) (unknown) (no (unknown) (unknown) ER Physician: (units ( unknown) date) Kyleigh Castellanos MD unknown) (unknown) (no (unknown) (unknown) Emergency Report (units (unknown) date) unknown) (unknown) (no (unknown) (unknown) Eos % (Auto) Not (units (unknown) date) Reportable unknown) (unknown) (no (unknown) (unknown) Eos % (Auto) (units (u nknown) date) unknown) (unknown) (no (unknown) (unknown) Esterase (units (unkno wn) date) unknown) (unknown) (no (unknown) (unknown) Estimated GFR (units ( unknown) date) (>60) mL/min unknown) (unknown) (no (unknown) (unknown) Estimated GFR 45 L (units (unknown) date) (>60) mL/min unknown) (unknown) (no (unknown) (unknown) Exam (units (unkno wn) date) unknown) (unknown) (no (unknown) (unknown) Extremities: No (units (unknown) date) trauma, well unknown) perfused (unknown) (no (unknown) (unknown) FINDINGS:? (units (unk nown) date) unknown) (unknown) (no (unknown) (unknown) Flash pulmonary (units (unknown) date) edema unknown) (unknown) (no (unknown) (unknown) Full and (units (unkno wn) date) symmetrical air unknown) movement, no respiratory distress appreciated (unknown) (no (unknown) (unknown) Gallbladder:? (units ( unknown) date) Unremarkable.? ? unknown) (unknown) (no (unknown) (unknown) General (units (unkno wn) date) unknown) (unknown) (no (unknown) (unknown) General: Acutely (units (unknown) date) ill-appearing, unknown) pale, significantly fatigued but will respond (unknown) (no (unknown) (unknown) Globulin (1.7-4.1) (units (unknown) date) g/dL unknown) (unknown) (no (unknown) (unknown) Globulin 3.4 (units (u nknown) date) (1.7-4.1) g/dL unknown) (unknown) (no (unknown) (unknown) Glucose (80-110) (units (unknown) date) mg/dL unknown) (unknown) (no (unknown) (unknown) Glucose 262 H (units ( unknown) date) (80-110) mg/dL unknown) (unknown) (no (unknown) (unknown) Goal directed (units ( unknown) date) therapy within 3 unknown) hours of septic shock or initial hypotension (unknown) (no (unknown) (unknown) Goal directed (units ( unknown) date) treatment unknown) (unknown) (no (unknown) (unknown) HEENT: Moist (units (u nknown) date) mucous membranes, unknown) normal sclera with reactive pupils, (unknown) (no (unknown) (unknown) HPI - General (units ( unknown) date) Adult unknown) (unknown) (no (unknown) (unknown) HPI narrative: (units (unknown) date) unknown) (unknown) (no (unknown) (unknown) Hct (41-53) % (units ( unknown) date) unknown) (unknown) (no (unknown) (unknown) Hct 38.2 L (41-53) (units (unknown) date) % unknown) (unknown) (no (unknown) (unknown) He has a history (units (unknown) date) of kidney stones unknown) and 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 No (units (unk nown) date) significant unknown) findings. (unknown) (no (unknown) (unknown) Hgb (13.5-17.5) (units (unknown) date) g/dL unknown) (unknown) (no (unknown) (unknown) Hgb 13.3 L (units (unk nown) date) (13.5-17.5) g/dL unknown) (unknown) (no (unknown) (unknown) History of Present (units (unknown) date) Illness unknown) (unknown) (no (unknown) (unknown) History of kidney (units (unknown) date) stones unknown) (unknown) (no (unknown) (unknown) Home Medications (units (unknown) date) unknown) (unknown) (no (unknown) (unknown) Hyperlipidemia (units (unknown) date) unknown) (unknown) (no (unknown) (unknown) Hypertension (units (u nknown) date) unknown) (unknown) (no (unknown) (unknown) IMPRESSION:? No (units (unknown) date) abscess found, no unknown) evidence of colitis or diverticulitis, or (unknown) (no (unknown) (unknown) IMPRESSION:? (units (u nknown) date) Reduced inspiratory unknown) volume, no acute disease when this factor is (unknown) (no (unknown) (unknown) INR (0.9-1.3) (units ( unknown) date) unknown) (unknown) (no (unknown) (unknown) INR 1.6 H (units (unkn own) date) (0.9-1.3) unknown) (unknown) (no (unknown) (unknown) Image quality:? (units (unknown) date) Excellent.? unknown) (unknown) (no (unknown) (unknown) Imaging Data (units (u nknown) date) unknown) (unknown) (no (unknown) (unknown) Initial Vital (units ( unknown) date) Signs unknown) (unknown) (no (unknown) (unknown) Initial Vital (units ( unknown) date) Signs: unknown) (unknown) (no (unknown) (unknown) Initial chest x-ray (units (unknown) date) does not suggest unknown) significant infiltrates or congestive heart (unknown) (no (unknown) (unknown) Initial (units (unkno wn) date) presumption was unknown) sepsis or developing sepsis. Fluid resuscitation with (unknown) (no (unknown) (unknown) Interpretation: (units (unknown) date) unknown) (unknown) (no (unknown) (unknown) [facility] (units (unknown) date) [address] unknown) [place] [address] (unknown) (no (unknown) (unknown) Kidney stones (units ( unknown) date) unknown) (unknown) (no (unknown) (unknown) Kidneys and (units (un known) date) Ureters:? 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 (unknown) (no (unknown) (unknown) Lab Data (units (unkno wn) date) unknown) (unknown) (no (unknown) (unknown) Lab Results (units (un known) date) unknown) (unknown) (no (unknown) (unknown) Label Comments: (units (unknown) date) unknown) (unknown) (no (unknown) (unknown) Labs: (units (unkno wn) date) unknown) (unknown) (no (unknown) (unknown) Lactate (0.7-2.1) (units (unknown) date) mmol/L unknown) (unknown) (no (unknown) (unknown) Lactate (Lactic (units (unknown) date) Acid) Stat unknown) (unknown) (no (unknown) (unknown) Lactate 3.0 H (units ( unknown) date) (0.7-2.1) mmol/L unknown) (unknown) (no (unknown) (unknown) Lactic elevated at (units (unknown) date) 3.0, significantly unknown) elevated procalcitonin, urine certainly (unknown) (no (unknown) (unknown) Last Admin: (units (un known) date) 01/31/22 20:17 unknown) Dose: 100 mls/hr (unknown) (no (unknown) (unknown) Last Admin: (units (un known) date) 01/31/22 20:17 unknown) Dose: 920.79 mls/hr (unknown) (no (unknown) (unknown) Last Admin: (units (un known) date) 01/31/22 22:05 unknown) Dose: 975 mg (unknown) (no (unknown) (unknown) Last Admin: (units (un known) date) 01/31/22 22:18 unknown) Dose: 10 mg (unknown) (no (unknown) (unknown) Last Infusion: (units (unknown) date) 01/31/22 21:10 unknown) Dose: 0 mls/hr (unknown) (no (unknown) (unknown) Last Titration: (units (unknown) date) 01/31/22 23:06 unknown) Dose: 20 mcg/kg/min, 11.049 mls/hr (unknown) (no (unknown) (unknown) Left axis (units (unkn own) date) deviation unknown) (unknown) (no (unknown) (unknown) Liver:? (units (unkno wn) date) Unremarkable.? ? unknown) (unknown) (no (unknown) (unknown) Lung bases:? (units (u nknown) date) Unremarkable. unknown) (unknown) (no (unknown) (unknown) Lungs and pleura:? (units (unknown) date) Lungs are clear.? unknown) No pleural effusions or pneumothorax.? (unknown) (no (unknown) (unknown) Lymph # (Auto) Not (units (unknown) date) Reportable unknown) (unknown) (no (unknown) (unknown) Lymph # (Auto) (units (unknown) date) unknown) (unknown) (no (unknown) (unknown) Lymph % (Auto) Not (units (unknown) date) Reportable unknown) (unknown) (no (unknown) (unknown) Lymph % (Auto) (units (unknown) date) unknown) (unknown) (no (unknown) (unknown) Lymphocytes % (units ( unknown) date) (Manual) (25-45) % unknown) (unknown) (no (unknown) (unknown) Lymphocytes % (units ( unknown) date) (Manual) 5.0 L unknown) (25-45) % (unknown) (no (unknown) (unknown) [id number] (units (unk nown) date) unknown) (unknown) (no (unknown) (unknown) MCH (26-34) PG (units (unknown) date) unknown) (unknown) (no (unknown) (unknown) MCH 28.5 (26-34) (units (unknown) date) PG unknown) (unknown) (no (unknown) (unknown) MCHC (30-36) % (units (unknown) date) unknown) (unknown) (no (unknown) (unknown) MCHC 34.8 (30-36) (units (unknown) date) % unknown) (unknown) (no (unknown) (unknown) MCV (80-100) fL (units (unknown) date) unknown) (unknown) (no (unknown) (unknown) MCV 81.8 (80-100) (units (unknown) date) fL unknown) (unknown) (no (unknown) (unknown) MDM Narrative (units ( unknown) date) unknown) (unknown) (no (unknown) (unknown) June of 2019. His (units (unknown) date) daughter indicates unknown) that he was scheduled to have a out (unknown) (no (unknown) (unknown) Measure peak (units (u nknown) date) expiratory flow unknown) ONCE (unknown) (no (unknown) (unknown) Mediastinum:? (units ( unknown) date) Mediastinal unknown) contours are normal.? Heart size is normal.? (unknown) (no (unknown) (unknown) Medical Decision (units (unknown) date) Making unknown) (unknown) (no (unknown) (unknown) Medical History (units (unknown) date) (Updated 01/31/22 @ unknown) 23:30 by Kyleigh Castellanos MD) (unknown) (no (unknown) (unknown) Medical decision (units (unknown) date) making narrative: unknown) (unknown) (no (unknown) (unknown) Medication (units (unk nown) date) Instructions unknown) Recorded Confirmed (unknown) (no (unknown) (unknown) Medication (units (unk nown) date) Instructions unknown) Recorded (unknown) (no (unknown) (unknown) Metoclopramide HCl (units (unknown) date) (Metoclopramide 10 unknown) Mg/2 Ml Inj) 10 mg IV NOW ONE (unknown) (no (unknown) (unknown) Metronidazole (units ( unknown) date) (Flagyl) 500 mg in unknown) 100 mls @ 100 mls/hr IV NOW ONE (unknown) (no (unknown) (unknown) Miscellaneous: No (units (unknown) date) hernias are seen. ? unknown) ? (unknown) (no (unknown) (unknown) [place] # (Auto) Not (units (unknown) date) Reportable unknown) (unknown) (no (unknown) (unknown) [place] # (Auto) (units ( unknown) date) unknown) (unknown) (no (unknown) (unknown) [place] % (Auto) Not (units (unknown) date) Reportable unknown) (unknown) (no (unknown) (unknown) [place] % (Auto) (units ( unknown) date) unknown) (unknown) (no (unknown) (unknown) Monocytes % (units (un known) date) (Manual) (2-11) % unknown) (unknown) (no (unknown) (unknown) Monocytes % (units (un known) date) (Manual) 1.0 L unknown) (2-11) % (unknown) (no (unknown) (unknown) Must include vital (units (unknown) date) signs, unknown) cardiopulmonary exam, capillary refill, (unknown) (no (unknown) (unknown) Narrative: (units (unk nown) date) unknown) (unknown) (no (unknown) (unknown) Neck: No JVD, (units ( unknown) date) supple unknown) (unknown) (no (unknown) (unknown) Neurologic: (units (un known) date) Globally weak but unknown) Grossly neurologically intact with no obvious (unknown) (no (unknown) (unknown) Neut % (Auto) Not (units (unknown) date) Reportable unknown) (unknown) (no (unknown) (unknown) Neut % (Auto) (units ( unknown) date) unknown) (unknown) (no (unknown) (unknown) Neutrophils # (units ( unknown) date) (Manual) unknown) ([id number]) /uL (unknown) (no (unknown) (unknown) Neutrophils # (units ( unknown) date) (Manual) 94254 H unknown) ([id number]) /uL (unknown) (no (unknown) (unknown) No Action (units (unkn own) date) unknown) (unknown) (no (unknown) (unknown) ONE; Protocol (units ( unknown) date) unknown) (unknown) (no (unknown) (unknown) Ordered: (units (unkno wn) date) unknown) (unknown) (no (unknown) (unknown) Orders (units (unkno wn) date) unknown) (unknown) (no (unknown) (unknown) Oxygen Delivery (units (unknown) date) Method 01/31/22 unknown) 19:06 (unknown) (no (unknown) (unknown) Oxygen Delivery (units (unknown) date) Method Room Air unknown) Room Air (unknown) (no (unknown) (unknown) Oxygen Delivery (units (unknown) date) Method unknown) (unknown) (no (unknown) (unknown) PELVIS: (units (unkno wn) date) unknown) (unknown) (no (unknown) (unknown) PT (10.1-12.7) (units (unknown) date) SECONDS unknown) (unknown) (no (unknown) (unknown) PT 18.9 H (units (unkn own) date) (10.1-12.7) SECONDS unknown) (unknown) (no (unknown) (unknown) Pancreas:? (units (unk nown) date) Unremarkable.? ? unknown) (unknown) (no (unknown) (unknown) Partial (units (unkno wn) date) Thromboplastin Time unknown) Stat (unknown) (no (unknown) (unknown) Patient (units (unkno wn) date) Disposition: unknown) Admitted As Inpatient (unknown) (no (unknown) (unknown) Patient History (units (unknown) date) unknown) (unknown) (no (unknown) (unknown) Patient: (units (unkno wn) date) [place] unknown) MR#: (unknown) (no (unknown) (unknown) Pelvic Nodes: No (units (unknown) date) enlarged lymph unknown) nodes.? (unknown) (no (unknown) (unknown) Pelvic Organs:? (units (unknown) date) Unremarkable.? ? unknown) (unknown) (no (unknown) (unknown) Penicillins (units (un known) date) Allergy Rash unknown) Verified 01/31/22 19:12 (unknown) (no (unknown) (unknown) Peritoneum:? No (units (unknown) date) abnormal unknown) intraperitoneal fluid.? No free air.? (unknown) (no (unknown) (unknown) Pigtail catheter (units (unknown) date) in place in the unknown) right ureter that looks like it was placed in (unknown) (no (unknown) (unknown) Plt Count (units (unkn own) date) (150-400) X103/uL unknown) (unknown) (no (unknown) (unknown) Plt Count 156 (units ( unknown) date) (150-400) X103/uL unknown) (unknown) (no (unknown) (unknown) Point of care (units ( unknown) date) testing: unknown) (unknown) (no (unknown) (unknown) Potassium (units (unkn own) date) (3.4-5.1) mmol/L unknown) (unknown) (no (unknown) (unknown) Potassium 3.6 (units ( unknown) date) (3.4-5.1) mmol/L unknown) (unknown) (no (unknown) (unknown) Prescriptions: (units (unknown) date) unknown) (unknown) (no (unknown) (unknown) Previous Rx's (units ( unknown) date) unknown) (unknown) (no (unknown) (unknown) Procalcitonin (units ( unknown) date) (<0.5) ng/mL unknown) (unknown) (no (unknown) (unknown) Procalcitonin 4.70 (units (unknown) date) H (<0.5) ng/mL unknown) (unknown) (no (unknown) (unknown) Procalcitonin Stat (units (unknown) date) unknown) (unknown) (no (unknown) (unknown) Propofol (units (unkno wn) date) (Propofol) 1,000 mg unknown) in 100 mls @ 2.762 mls/hr IV TITRATE ANGI; Protocol (unknown) (no (unknown) (unknown) Prothrombin Time (units (unknown) date) INR Stat unknown) (unknown) (no (unknown) (unknown) Psych: (units (unkno wn) date) Cooperative, unknown) significant fatigue (unknown) (no (unknown) (unknown) Pulse Oximetry 100 (units (unknown) date) unknown) (unknown) (no (unknown) (unknown) Pulse Oximetry 81 (units (unknown) date) L unknown) (unknown) (no (unknown) (unknown) Pulse Oximetry 94 (units (unknown) date) unknown) (unknown) (no (unknown) (unknown) Pulse Oximetry 97 (units (unknown) date) 95 unknown) (unknown) (no (unknown) (unknown) Pulse Oximetry 97 (units (unknown) date) 96 unknown) (unknown) (no (unknown) (unknown) Pulse Oximetry 98 (units (unknown) date) 01/31/22 19:06 unknown) (unknown) (no (unknown) (unknown) Pulse Oximetry 98 (units (unknown) date) 95 unknown) (unknown) (no (unknown) (unknown) Pulse Oximetry 98 (units (unknown) date) 97 unknown) (unknown) (no (unknown) (unknown) Pulse Oximetry 99 (units (unknown) date) unknown) (unknown) (no (unknown) (unknown) Pulse Rate 117 H (units (unknown) date) 01/31/22 19:06 unknown) (unknown) (no (unknown) (unknown) Pulse Rate 117 H (units (unknown) date) 124 H unknown) (unknown) (no (unknown) (unknown) Pulse Rate 118 H (units (unknown) date) 67 unknown) (unknown) (no (unknown) (unknown) Pulse Rate 119 H (units (unknown) date) 120 H unknown) (unknown) (no (unknown) (unknown) Pulse Rate 119 H (units (unknown) date) unknown) (unknown) (no (unknown) (unknown) Pulse Rate 122 H (units (unknown) date) 116 H unknown) (unknown) (no (unknown) (unknown) Pulse Rate 122 H (units (unknown) date) unknown) (unknown) (no (unknown) (unknown) Pulse Rate 124 H (units (unknown) date) 139 H unknown) (unknown) (no (unknown) (unknown) Pulse Rate 143 H (units (unknown) date) unknown) (unknown) (no (unknown) (unknown) Pulse Rate 144 H (units (unknown) date) unknown) (unknown) (no (unknown) (unknown) QTC prolonged at (units (unknown) date) 583 milliseconds unknown) (unknown) (no (unknown) (unknown) Qualifiers: (units (un known) date) unknown) (unknown) (no (unknown) (unknown) RBC (4.5-5.9) (units ( unknown) date) X106/uL unknown) (unknown) (no (unknown) (unknown) RBC 4.66 (4.5-5.9) (units (unknown) date) X106/uL unknown) (unknown) (no (unknown) (unknown) RBC Morphology See (units (unknown) date) below unknown) (unknown) (no (unknown) (unknown) RBC Morphology (units (unknown) date) unknown) (unknown) (no (unknown) (unknown) RDW (11.6-14.8) % (units (unknown) date) unknown) (unknown) (no (unknown) (unknown) RDW 14.0 (units (unkno wn) date) (11.6-14.8) % unknown) (unknown) (no (unknown) (unknown) RT Consult Eval (units (unknown) date) and Treat Now unknown) (unknown) (no (unknown) (unknown) Radiologist's (units ( unknown) date) Impression: unknown) (unknown) (no (unknown) (unknown) Referrals: (units (unk nown) date) unknown) (unknown) (no (unknown) (unknown) Related Data (units (u nknown) date) unknown) (unknown) (no (unknown) (unknown) Remainder of (units (u nknown) date) complete review of unknown) systems is otherwise unremarkable except for (unknown) (no (unknown) (unknown) Respiratory Rate (units (unknown) date) 25 H 42 H unknown) (unknown) (no (unknown) (unknown) Respiratory Rate (units (unknown) date) 25 H unknown) (unknown) (no (unknown) (unknown) Respiratory Rate (units (unknown) date) 30 H unknown) (unknown) (no (unknown) (unknown) Respiratory Rate (units (unknown) date) 31 H unknown) (unknown) (no (unknown) (unknown) Respiratory Rate (units (unknown) date) 35 H 01/31/22 19:06 unknown) (unknown) (no (unknown) (unknown) Respiratory Rate (units (unknown) date) 35 H unknown) (unknown) (no (unknown) (unknown) Respiratory Rate (units (unknown) date) 37 H unknown) (unknown) (no (unknown) (unknown) Respiratory Rate (units (unknown) date) 39 H 41 H unknown) (unknown) (no (unknown) (unknown) Respiratory Rate (units (unknown) date) 40 H unknown) (unknown) (no (unknown) (unknown) Respiratory Rate (units (unknown) date) 43 H unknown) (unknown) (no (unknown) (unknown) Respiratory (units (un known) date) failure unknown) (unknown) (no (unknown) (unknown) Respiratory: Lungs (units (unknown) date) are clear to unknown) auscultation, no wheezing no rales no rhonchi. (unknown) (no (unknown) (unknown) Result diagrams: (units (unknown) date) unknown) (unknown) (no (unknown) (unknown) Review of Systems (units (unknown) date) unknown) (unknown) (no (unknown) (unknown) SARS-CoV-2 (PCR) (units (unknown) date) (Negative) unknown) (unknown) (no (unknown) (unknown) SARS-CoV-2 (PCR) (units (unknown) date) Negative (Negative) unknown) (unknown) (no (unknown) (unknown) Seg Neutrophils % (units (unknown) date) (38-70) % unknown) (unknown) (no (unknown) (unknown) Seg Neutrophils % (units (unknown) date) 82.0 H (38-70) % unknown) (unknown) (no (unknown) (unknown) Sepsis type: (units (u nknown) date) sepsis due to unknown) unspecified organism Sepsis acute organ dysfunction (unknown) (no (unknown) (unknown) Sepsis (units (unkno wn) date) unknown) (unknown) (no (unknown) (unknown) Septic Shock (units (u nknown) date) Criteria unknown) (unknown) (no (unknown) (unknown) Septic Shock (units (u nknown) date) Determination. the unknown) patient has been screened and (unknown) (no (unknown) (unknown) Severe Sepsis (units ( unknown) date) Criteria unknown) (unknown) (no (unknown) (unknown) Severe Sepsis (units ( unknown) date) Determination. the unknown) patient has been screened and (unknown) (no (unknown) (unknown) Signed By: (units (unk nown) date) unknown) (unknown) (no (unknown) (unknown) Sinus tachycardia (units (unknown) date) at a rate of 116 unknown) (unknown) (no (unknown) (unknown) Skin: Pale but (units (unknown) date) otherwise Warm and unknown) dry, no rashes (unknown) (no (unknown) (unknown) Smoking Status: (units (unknown) date) Never smoker unknown) (unknown) (no (unknown) (unknown) Social History (units (unknown) date) (Reviewed 01/31/22 unknown) @ 21:45 by Kyleigh Castellanos MD) (unknown) (no (unknown) (unknown) Sodium (137-145) (units (unknown) date) mmol/L unknown) (unknown) (no (unknown) (unknown) Sodium 135 L (units (u nknown) date) (137-145) mmol/L unknown) (unknown) (no (unknown) (unknown) Sodium Chloride (units (unknown) date) (Normal Saline unknown) 0.9%) 2,762.37 mls @ 920.79 mls/hr 30 ml/kg (unknown) (no (unknown) (unknown) Spleen:? (units (unkno wn) date) Unremarkable.? ? unknown) (unknown) (no (unknown) (unknown) Stated complaint: (units (unknown) date) Vomiting, Stomach unknown) cramps, SOB (unknown) (no (unknown) (unknown) Stomach and (units (un known) date) Bowel:? Stomach, unknown) small bowel loops, and colon are unremarkable.? (unknown) (no (unknown) (unknown) Stop: 01/31/22 (units (unknown) date) 20:06 unknown) (unknown) (no (unknown) (unknown) Stop: 01/31/22 (units (unknown) date) 21:04 unknown) (unknown) (no (unknown) (unknown) Stop: 01/31/22 (units (unknown) date) 21:42 unknown) (unknown) (no (unknown) (unknown) Stop: 01/31/22 (units (unknown) date) 22:13 unknown) (unknown) (no (unknown) (unknown) Stop: 01/31/22 (units (unknown) date) 22:50 unknown) (unknown) (no (unknown) (unknown) Stop: 01/31/22 (units (unknown) date) 23:01 unknown) (unknown) (no (unknown) (unknown) Stop: 02/01/22 (units (unknown) date) 04:48 unknown) (unknown) (no (unknown) (unknown) Substance Use (units ( unknown) date) Type: does not use unknown) (unknown) (no (unknown) (unknown) Subtle lateral ST (units (unknown) date) depression unknown) (unknown) (no (unknown) (unknown) Surgical changes (units (unknown) date) and devices:? unknown) None.? (unknown) (no (unknown) (unknown) Temperature 98.3 F (units (unknown) date) 01/31/22 19:06 unknown) (unknown) (no (unknown) (unknown) Temperature 98.3 F (units (unknown) date) unknown) (unknown) (no (unknown) (unknown) Temperature (units (un known) date) unknown) (unknown) (no (unknown) (unknown) The left (units (unkno wn) date) unknown) (unknown) (no (unknown) (unknown) This critical care (units (unknown) date) time includes unknown) consultation with family and other consulting (unknown) (no (unknown) (unknown) Time Seen by (units (u nknown) date) Provider: 01/31/22 unknown) 19:43 (unknown) (no (unknown) (unknown) Time Septic Shock (units (unknown) date) diagnosed: [ ] unknown) (unknown) (no (unknown) (unknown) Total Bilirubin (units (unknown) date) (0.2-1.3) mg/dL unknown) (unknown) (no (unknown) (unknown) Total Bilirubin (units (unknown) date) 2.2 H (0.2-1.3) unknown) mg/dL (unknown) (no (unknown) (unknown) Total Counted 100 (units (unknown) date) unknown) (unknown) (no (unknown) (unknown) Total Counted (units ( unknown) date) unknown) (unknown) (no (unknown) (unknown) Total Creatine (units (unknown) date) Kinase (55-170) U/L unknown) (unknown) (no (unknown) (unknown) Total Creatine (units (unknown) date) Kinase 59 (55-170) unknown) U/L (unknown) (no (unknown) (unknown) Total Critical (units (unknown) date) Care Time: 39 unknown) (unknown) (no (unknown) (unknown) Total Protein (units ( unknown) date) (6.3-8.2) g/dL unknown) (unknown) (no (unknown) (unknown) Total Protein 7.6 (units (unknown) date) (6.3-8.2) g/dL unknown) (unknown) (no (unknown) (unknown) Trop I [Troponin (units (unknown) date) I] Stat unknown) (unknown) (no (unknown) (unknown) Troponin + CK (units ( unknown) date) Cardiac Panel Stat unknown) (unknown) (no (unknown) (unknown) Troponin I (units (unk nown) date) (0.01-0.034) ng/mL unknown) (unknown) (no (unknown) (unknown) Troponin I 0.608 (units (unknown) date) H* (0.01-0.034) unknown) ng/mL (unknown) (no (unknown) (unknown) Troponin I 0.924 (units (unknown) date) H* (0.01-0.034) unknown) ng/mL (unknown) (no (unknown) (unknown) Troponin is (units (un known) date) elevated at 0.9-4. unknown) Priors are not available. He does not have a (unknown) (no (unknown) (unknown) Type 2 diabetes (units (unknown) date) mellitus unknown) (unknown) (no (unknown) (unknown) Ur Culture (units (unk nown) date) Indicated? Specimen unknown) cultured (unknown) (no (unknown) (unknown) Ur Culture (units (unk nown) date) Indicated? unknown) (unknown) (no (unknown) (unknown) Ur Leukocyte (units (u nknown) date) Esterase (NEGATIVE) unknown) (unknown) (no (unknown) (unknown) Ur Leukocyte (units (u nknown) date) Esterase 2+ H unknown) (NEGATIVE) (unknown) (no (unknown) (unknown) Ur Specific (units (un known) date) [place] unknown) (1.000-1.035) (unknown) (no (unknown) (unknown) Ur Specific (units (un known) date) [place] 1.010 unknown) (1.000-1.035) (unknown) (no (unknown) (unknown) Ur Squamous Epith (units (unknown) date) Cells (0-5/HPF) unknown) (unknown) (no (unknown) (unknown) Ur Squamous Epith (units (unknown) date) Cells None seen unknown) (0-5/HPF) (unknown) (no (unknown) (unknown) Urinalysis and (units (unknown) date) Microscopic Stat unknown) (unknown) (no (unknown) (unknown) Urine Appearance (units (unknown) date) Sl cloudy unknown) (unknown) (no (unknown) (unknown) Urine Appearance (units (unknown) date) unknown) (unknown) (no (unknown) (unknown) Urine Bacteria (units (unknown) date) (None) unknown) (unknown) (no (unknown) (unknown) Urine Bacteria (units (unknown) date) Many (>30) H (None) unknown) (unknown) (no (unknown) (unknown) Urine Bilirubin (units (unknown) date) (NEGATIVE) unknown) (unknown) (no (unknown) (unknown) Urine Bilirubin (units (unknown) date) Negative (NEGATIVE) unknown) (unknown) (no (unknown) (unknown) Urine Color Yellow (units (unknown) date) unknown) (unknown) (no (unknown) (unknown) Urine Color (units (un known) date) unknown) (unknown) (no (unknown) (unknown) Urine Culture Stat (units (unknown) date) unknown) (unknown) (no (unknown) (unknown) Urine Dip (units (unkn own) date) unknown) (unknown) (no (unknown) (unknown) Urine Glucose (UA) (units (unknown) date) (Negative) g/dL unknown) (unknown) (no (unknown) (unknown) Urine Glucose (UA) (units (unknown) date) Negative (Negative) unknown) g/dL (unknown) (no (unknown) (unknown) Urine Ketones (units ( unknown) date) (NEGATIVE) unknown) (unknown) (no (unknown) (unknown) Urine Ketones (units ( unknown) date) Negative (NEGATIVE) unknown) (unknown) (no (unknown) (unknown) Urine Nitrate (units ( unknown) date) (Negative) unknown) (unknown) (no (unknown) (unknown) Urine Nitrate (units ( unknown) date) Negative (Negative) unknown) (unknown) (no (unknown) (unknown) Urine Occult Blood (units (unknown) date) (Negative) unknown) (unknown) (no (unknown) (unknown) Urine Occult Blood (units (unknown) date) 1+ H (Negative) unknown) (unknown) (no (unknown) (unknown) Urine Protein (units ( unknown) date) (Negative) unknown) (unknown) (no (unknown) (unknown) Urine Protein 1+ H (units (unknown) date) (Negative) unknown) (unknown) (no (unknown) (unknown) Urine RBC (units (unkn own) date) (0-5/HPF) unknown) (unknown) (no (unknown) (unknown) Urine RBC 0-1/hpf (units (unknown) date) (0-5/HPF) unknown) (unknown) (no (unknown) (unknown) Urine Specific (units (unknown) date) [place] 1.02 unknown) (unknown) (no (unknown) (unknown) Urine Urobilinogen (units (unknown) date) (0.2) E.U./dL unknown) (unknown) (no (unknown) (unknown) Urine Urobilinogen (units (unknown) date) 0.2 (0.2) E.U./dL unknown) (unknown) (no (unknown) (unknown) Urine WBC (units (unkn own) date) (0-5/HPF) unknown) (unknown) (no (unknown) (unknown) Urine WBC (units (unkn own) date) 30-100/hpf H unknown) (0-5/HPF) (unknown) (no (unknown) (unknown) Urine pH (4.5-8.0) (units (unknown) date) unknown) (unknown) (no (unknown) (unknown) Urine pH 5.0 (units (u nknown) date) (4.5-8.0) unknown) (unknown) (no (unknown) (unknown) Ventral Wall: ? No (units (unknown) date) hernias.? unknown) (unknown) (no (unknown) (unknown) Vessels:? Aorta (units (unknown) date) and inferior vena unknown) cava are normal in size.? (unknown) (no (unknown) (unknown) Vital Signs - 8 hr (units (unknown) date) unknown) (unknown) (no (unknown) (unknown) Vital Signs (units (un known) date) unknown) (unknown) (no (unknown) (unknown) Vital signs: (units (u nknown) date) unknown) (unknown) (no (unknown) (unknown) WBC (4.5-11.0) (units (unknown) date) X103/uL unknown) (unknown) (no (unknown) (unknown) WBC 29.1 H (units (unk nown) date) (4.5-11.0) X103/uL unknown) (unknown) (no (unknown) (unknown) Was initially (units ( unknown) date) hypertensive is unknown) significantly tachycardic. Ultrasound for central (unknown) (no (unknown) (unknown) Within 3 hours (units (unknown) date) unknown) (unknown) (no (unknown) (unknown) Within 6 hours (if (units (unknown) date) continued unknown) hypotension after fluids or initial lactate >4) (unknown) (no (unknown) (unknown) XR chest 2V Stat (units (unknown) date) unknown) (unknown) (no (unknown) (unknown) [ ] 2 SIRS (units (unk nown) date) Criteria met unknown) (unknown) (no (unknown) (unknown) [ ] 30ml/kg fluid (units (unknown) date) unknown) (unknown) (no (unknown) (unknown) [ ] ABW used (units (u nknown) date) unknown) (unknown) (no (unknown) (unknown) [ ] BP < 90 or MAP (units (unknown) date) <65, >40mm decrease unknown) from normal baseline (unknown) (no (unknown) (unknown) [ ] Creat > 2.0 (units (unknown) date) unknown) (unknown) (no (unknown) (unknown) [ ] DOES NOT meet (units (unknown) date) criteria for severe unknown) sepsis (unknown) (no (unknown) (unknown) [ ] DOES meet (units ( unknown) date) criteria for septic unknown) shock (unknown) (no (unknown) (unknown) [ ] Evidence of at (units (unknown) date) least 1 organ unknown) system dysfunction (unknown) (no (unknown) (unknown) [ ] IBW (33.6) (units (unknown) date) used due to BMI > unknown) 30 (unknown) (no (unknown) (unknown) [ ] Initiate (units (u nknown) date) vasopressor therapy unknown) if persistent hypotension after adequate fluid (unknown) (no (unknown) (unknown) [ ] RR >20 (units (unk nown) date) unknown) (unknown) (no (unknown) (unknown) [ ] SBP ,90 or MAP (units (unknown) date) , 65 unknown) (unknown) (no (unknown) (unknown) [ ] altered mental (units (unknown) date) status unknown) (unknown) (no (unknown) (unknown) [ ] documentation (units (unknown) date) of septic shock unknown) (unknown) (no (unknown) (unknown) [ ] lactic > 4 at (units (unknown) date) any time unknown) (unknown) (no (unknown) (unknown) [ ] lactic redrawn (units (unknown) date) within 6 hours if unknown) >2.0 (unknown) (no (unknown) (unknown) [ ] mechanical (units (unknown) date) ventilation unknown) (unknown) (no (unknown) (unknown) [ ] patient or (units (unknown) date) advocate declining unknown) fluid administration after shared decision (unknown) (no (unknown) (unknown) [ ] platelet count (units (unknown) date) < 100k unknown) (unknown) (no (unknown) (unknown) [ ] provider (units (u nknown) date) documentation of unknown) severe sepsis (unknown) (no (unknown) (unknown) [ ] repeat volume (units (unknown) date) status and tissue unknown) perfusion assessment documented after fluid (unknown) (no (unknown) (unknown) [ x ] DOES meet (units (unknown) date) criteria for severe unknown) sepsis (unknown) (no (unknown) (unknown) [ x ] Lactate > 2 (units (unknown) date) unknown) (unknown) (no (unknown) (unknown) [ x ] broad (units (un known) date) spectrum abx unknown) started (unknown) (no (unknown) (unknown) [ x ] fever or (units (unknown) date) hypothermia unknown) (unknown) (no (unknown) (unknown) [ x ] lactic acid (units (unknown) date) level checked unknown) (unknown) (no (unknown) (unknown) [ x ] (units (unkno wn) date) leukocytosis/leukop unknown) enia/bandemia (unknown) (no (unknown) (unknown) [ x] HR >90 (units (un known) date) unknown) (unknown) (no (unknown) (unknown) [Embedded Image (units (unknown) date) Not Available] unknown) (unknown) (no (unknown) (unknown) [x ] DOES NOT meet (units (unknown) date) criteria for septic unknown) shock (unknown) (no (unknown) (unknown) [x ] T. Bili > 2.0 (units (unknown) date) unknown) (unknown) (no (unknown) (unknown) [x ] bacterial (units (unknown) date) source of infection unknown) suspected and documented (unknown) (no (unknown) (unknown) [x ] blood cx (units ( unknown) date) drawn prior to abx unknown) (unknown) (no (unknown) (unknown) a incontinence (units (unknown) date) pad. He has not unknown) been having any diarrhea or constipation. He (unknown) (no (unknown) (unknown) a slight (units (unkno wn) date) unknown) (unknown) (no (unknown) (unknown) account. (units (unkno wn) date) unknown) (unknown) (no (unknown) (unknown) acute renal (units (un known) date) failure Acute renal unknown) failure type: unspecified Severe sepsis shock (unknown) (no (unknown) (unknown) administered. His (units (unknown) date) abdominal pain is unknown) significantly improved. He is still (unknown) (no (unknown) (unknown) admission and (units ( unknown) date) after the CT scan unknown) has been completed the patient will go directly (unknown) (no (unknown) (unknown) alcohol intake (units (unknown) date) frequency: unknown) holidays/special occasions only (unknown) (no (unknown) (unknown) alcohol intake: (units (unknown) date) current unknown) (unknown) (no (unknown) (unknown) amlodipine 10 mg (units (unknown) date) tablet 10 mg PO unknown) DAILY 01/27/18 07/13/19 (unknown) (no (unknown) (unknown) amlodipine 10 mg (units (unknown) date) tablet unknown) (unknown) (no (unknown) (unknown) and normotensive (units (unknown) date) with oxygen unknown) saturations 99% on room air. (unknown) (no (unknown) (unknown) any significant (units (unknown) date) cough, chest pain, unknown) palpitations, lower extremity edema. He (unknown) (no (unknown) (unknown) appendicitis. (units ( unknown) date) unknown) (unknown) (no (unknown) (unknown) appropriate (units (un known) date) sedation. No unknown) significant debris or edema coming up the ET tube. (unknown) (no (unknown) (unknown) asymmetries or (units (unknown) date) abnormalities unknown) (unknown) (no (unknown) (unknown) been significantly (units (unknown) date) fatigued but is unknown) otherwise cognitively intact. (unknown) (no (unknown) (unknown) began with (units (unk nown) date) ceftriaxone and unknown) Flagyl thinking that this was a GI source. (unknown) (no (unknown) (unknown) bolus was (units (unkn own) date) completed at unknown) [Date/Time] (unknown) (no (unknown) (unknown) bolus (units (unkno wn) date) unknown) (unknown) (no (unknown) (unknown) by the bladder (units (unknown) date) outlet obstruction unknown) and chronic urinary retention. (unknown) (no (unknown) (unknown) capillary refill (units (unknown) date) and no evidence of unknown) hypotension. Findings and concerns are (unknown) (no (unknown) (unknown) chance to (units (unkn own) date) follow-up since unknown) that catheter was placed. (unknown) (no (unknown) (unknown) chlorthalidone 50 (units (unknown) date) mg tablet 50 mg PO unknown) DAILY 01/27/18 07/13/19 (unknown) (no (unknown) (unknown) chlorthalidone 50 (units (unknown) date) mg tablet unknown) (unknown) (no (unknown) (unknown) collecting (units (unk nown) date) unknown) (unknown) (no (unknown) (unknown) degree Mya renal (units (unknown) date) edema.? A urinary unknown) tract stone, is not seen on the left. (unknown) (no (unknown) (unknown) doctors, review of (units (unknown) date) records, and unknown) interpretation of data from labs, EKGs and (unknown) (no (unknown) (unknown) down and Urology (units (unknown) date) available to unknown) consult he felt that admission to [facility] (unknown) (no (unknown) (unknown) exenatide (units (unkn own) date) microspheres 2 unknown) mg/0.85 2 mg SUBCUT QWEEK 07/05/19 07/13/19 (unknown) (no (unknown) (unknown) failure. Current (units (unknown) date) access is 2 20 unknown) gauge peripheral IVs (unknown) (no (unknown) (unknown) fatigue, overall (units (unknown) date) altered mental unknown) status, increasing abdominal pain. He denies (unknown) (no (unknown) (unknown) fenofibrate (units (un known) date) nanocrystallized unknown) 145 145 mg PO DAILY 07/05/19 07/13/19 (unknown) (no (unknown) (unknown) fenofibrate (units (un known) date) nanocrystallized unknown) 145 mg tablet (unknown) (no (unknown) (unknown) for such. He is (units (unknown) date) not complaining of unknown) chest pain. Will repeat. (unknown) (no (unknown) (unknown) has been passing (units (unknown) date) gas. Reports no unknown) significant headache. They report that he has (unknown) (no (unknown) (unknown) history of known (units (unknown) date) coronary disease unknown) but does have a all appropriate risk factors (unknown) (no (unknown) (unknown) household members: (units (unknown) date) spouse unknown) (unknown) (no (unknown) (unknown) however Covid19 (units (unknown) date) made surgical unknown) planning challenging and he has not yet had the (unknown) (no (unknown) (unknown) hydronephrosis or (units (unknown) date) unknown) (unknown) (no (unknown) (unknown) hyperlipidemia, (units (unknown) date) prior kidney stones unknown) presents with 12 hours of increasing fevers, (unknown) (no (unknown) (unknown) hypoxia or (units (unk nown) date) hypercapnia unknown) Qualified Code(s): J96.00 - Acute respiratory failure, (unknown) (no (unknown) (unknown) imaging as well as (units (unknown) date) managements of unknown) sepsis, acute infection, flash pulmonary edema (unknown) (no (unknown) (unknown) infuse over 3 hr (units (unknown) date) (2762.37 ml) IV NOW unknown) ONE (unknown) (no (unknown) (unknown) insulin glargine (units (unknown) date) 100 unit/mL (3 26 unknown) units SUBCUT DAILY 01/27/18 07/13/19 (unknown) (no (unknown) (unknown) insulin glargine (units (unknown) date) 100 unit/mL (3 mL) unknown) insulin pen (unknown) (no (unknown) (unknown) is placed. Urine (units (unknown) date) does look acutely unknown) infected. (unknown) (no (unknown) (unknown) kidney demonstrates (units (unknown) date) slight prominence unknown) of the central renal collecting system and (unknown) (no (unknown) (unknown) levofloxacin [From (units (unknown) date) Levaquin] Allergy unknown) Rash Verified 01/31/22 19:12 (unknown) (no (unknown) (unknown) line placement (units (unknown) date) shows no evidence unknown) of volume depletion. He is given 5 mg of IV (unknown) (no (unknown) (unknown) looks like a (units (u nknown) date) urinary tract unknown) infection. In the setting of acute urinary (unknown) (no (unknown) (unknown) losartan 100 mg (units (unknown) date) tablet 100 mg PO unknown) DAILY 01/27/18 07/13/19 (unknown) (no (unknown) (unknown) losartan 100 mg (units (unknown) date) tablet unknown) (unknown) (no (unknown) (unknown) mL subcutaneous (units (unknown) date) auto-injector unknown) (unknown) (no (unknown) (unknown) mL) subcutaneous (units (unknown) date) pen unknown) (unknown) (no (unknown) (unknown) making (units (unkno wn) date) conversation unknown) (unknown) (no (unknown) (unknown) metformin 500 mg (units (unknown) date) tablet 500 mg PO unknown) BID 01/27/18 07/13/19 (unknown) (no (unknown) (unknown) metformin 500 mg (units (unknown) date) tablet unknown) (unknown) (no (unknown) (unknown) metoprolol with (units (unknown) date) his rate coming unknown) down from a sinus tach in the 160 range to the (unknown) (no (unknown) (unknown) mg tablet (units (unkn own) date) unknown) (unknown) (no (unknown) (unknown) minor prominence (units (unknown) date) of the renal unknown) collecting system on the left without obvious (unknown) (no (unknown) (unknown) mondays (units (unkno wn) date) unknown) (unknown) (no (unknown) (unknown) no flank pain (units ( unknown) date) unknown) (unknown) (no (unknown) (unknown) not (units (unkno wn) date) unknown) (unknown) (no (unknown) (unknown) of oxygen. Given (units (unknown) date) Reglan. With unknown) prolonged QT I do not want to use Zofran. (unknown) (no (unknown) (unknown) organism (units (unkno wn) date) unknown) (unknown) (no (unknown) (unknown) oxycodone 5 mg (units (unknown) date) capsule 5 mg PO Q4H unknown) PRN pain #14 caps 07/13/19 (unknown) (no (unknown) (unknown) oxycodone 5 mg (units (unknown) date) capsule unknown) (unknown) (no (unknown) (unknown) pain for further (units (unknown) date) evaluation. unknown) Tachycardic, tachypneic, afebrile on presentation (unknown) (no (unknown) (unknown) peripheral pulse (units (unknown) date) evaluation, skin unknown) exam (unknown) (no (unknown) (unknown) pigtail right (units ( unknown) date) ureteral stent unknown) without hydronephrosis or hydroureter. Urine (unknown) (no (unknown) (unknown) pigtail (units (unkno wn) date) unknown) (unknown) (no (unknown) (unknown) prior to (units (unkno wn) date) determining acuity unknown) of hospital needs for admission. (unknown) (no (unknown) (unknown) probability of a (units (unknown) date) significant, sudden unknown) or life-threatening deterioration that (unknown) (no (unknown) (unknown) requires my full (units (unknown) date) and direct unknown) attention, intervention and personal management. (unknown) (no (unknown) (unknown) retained (units (unkno wn) date) calculus.? On the unknown) left there is mild prominence of the central renal (unknown) (no (unknown) (unknown) retention, pigtail (units (unknown) date) catheter still in unknown) place and mild prominence of the collecting (unknown) (no (unknown) (unknown) reviewed with the (units (unknown) date) patient and his unknown) daughter. Will wait to see repeat troponin (unknown) (no (unknown) (unknown) right ureteral (units (unknown) date) stent.? There is no unknown) right-sided hydronephrosis or hydroureter.? (unknown) (no (unknown) (unknown) rosuvastatin 40 mg (units (unknown) date) tablet 40 mg PO unknown) DAILY 07/05/19 07/13/19 (unknown) (no (unknown) (unknown) rosuvastatin 40 mg (units (unknown) date) tablet unknown) (unknown) (no (unknown) (unknown) sample is obtained (units (unknown) date) and 1725 cc of unknown) urine are initially drained. Ramírez catheter (unknown) (no (unknown) (unknown) saturations are (units (unknown) date) dropping slightly unknown) 87% with a good waveform. He started on 2 L (unknown) (no (unknown) (unknown) saturations. (units (u nknown) date) Patient is moved to unknown) room 1 intubated with central line placed. (unknown) (no (unknown) (unknown) seen. (units (unkno wn) date) unknown) (unknown) (no (unknown) (unknown) showing signs of (units (unknown) date) good peripheral unknown) perfusion with warm extremities with good (unknown) (no (unknown) (unknown) shows flash (units (un known) date) pulmonary edema. unknown) (unknown) (no (unknown) (unknown) signs of (units (unkno wn) date) obstruction. unknown) (unknown) (no (unknown) (unknown) states that he is (units (unknown) date) able to void but it unknown) is only intervals and he frequently wears (unknown) (no (unknown) (unknown) status: with acute (units (unknown) date) organ dysfunction unknown) Severe sepsis acute organ dysfunction type: (unknown) (no (unknown) (unknown) status: without (units (unknown) date) septic shock unknown) Qualified Code(s): A41.9 - Sepsis, unspecified (unknown) (no (unknown) (unknown) system but an (units (u nknown) date) obstructive urinary unknown) tract stone more distally within the ureter is (unknown) (no (unknown) (unknown) system on the (units ( unknown) date) right without unknown) evidence of stone urology will be consult today. (unknown) (no (unknown) (unknown) taken into (units (unk nown) date) unknown) (unknown) (no (unknown) (unknown) tamsulosin 0.4 mg (units (unknown) date) capsule 0.4 mg PO unknown) DAILY #60 caps 07/13/19 (unknown) (no (unknown) (unknown) tamsulosin 0.4 mg (units (unknown) date) capsule unknown) (unknown) (no (unknown) (unknown) that included in (units (unknown) date) the HPI. unknown) (unknown) (no (unknown) (unknown) to direct (units (unkn own) date) questions unknown) (unknown) (no (unknown) (unknown) to the intensive (units (unknown) date) care unit. unknown) (unknown) (no (unknown) (unknown) unremarkable.? (units (unknown) date) unknown) (unknown) (no (unknown) (unknown) unspecified (units (un known) date) whether with unknown) hypoxia or hypercapnia (unknown) (no (unknown) (unknown) with acute (units (unk nown) date) respiratory unknown) deterioration. (unknown) (no (unknown) (unknown) would be (units (unkno wn) date) appropriate. unknown) Patient is doing better with appropriate sedation. Result panel 24 (unknown) (no date) (unknown) (unknown) 5.3 mmol/l (unkn own) (unknown) (no date) (unknown) (unknown) 5.3 mmol/l (unkn own) Result panel 25 (unknown) (no (unknown) (unknown) (no value) (units (unk nown) date) unknown) (unknown) (no (unknown) (unknown) ([place]ureon BCise) (units (unknown) date) unknown) (unknown) (no (unknown) (unknown) (past 8 hours): (units (unknown) date) unknown) (unknown) (no (unknown) (unknown) 01/31/22 01/31/22 (units (unknown) date) 01/31/22 unknown) (unknown) (no (unknown) (unknown) 01/31/22 20:00 (units (unknown) date) unknown) (unknown) (no (unknown) (unknown) 01/31/22 (units (unkno wn) date) unknown) (unknown) (no (unknown) (unknown) 19:06 01/31/22 (units (unknown) date) unknown) (unknown) (no (unknown) (unknown) 19:19 01/31/22 (units (unknown) date) unknown) (unknown) (no (unknown) (unknown) 19:20 01/31/22 (units (unknown) date) unknown) (unknown) (no (unknown) (unknown) 19:20 (units (unkno wn) date) unknown) (unknown) (no (unknown) (unknown) 19:30 01/31/22 (units (unknown) date) unknown) (unknown) (no (unknown) (unknown) 19:30 (units (unkno wn) date) unknown) (unknown) (no (unknown) (unknown) 20:00 01/31/22 (units (unknown) date) unknown) (unknown) (no (unknown) (unknown) 20:00 20:00 20:00 (units (unknown) date) unknown) (unknown) (no (unknown) (unknown) 20:14 22:13 22:13 (units (unknown) date) unknown) (unknown) (no (unknown) (unknown) 20:30 01/31/22 (units (unknown) date) unknown) (unknown) (no (unknown) (unknown) 20:30 (units (unkno wn) date) unknown) (unknown) (no (unknown) (unknown) 20:45 01/31/22 (units (unknown) date) unknown) (unknown) (no (unknown) (unknown) 21:07 (units (unkno wn) date) unknown) (unknown) (no (unknown) (unknown) 21:11 01/31/22 (units (unknown) date) unknown) (unknown) (no (unknown) (unknown) 21:15 01/31/22 (units (unknown) date) unknown) (unknown) (no (unknown) (unknown) 21:30 01/31/22 (units (unknown) date) unknown) (unknown) (no (unknown) (unknown) 21:30 (units (unkno wn) date) unknown) (unknown) (no (unknown) (unknown) 21:46 01/31/22 (units (unknown) date) unknown) (unknown) (no (unknown) (unknown) 21:46 (units (unkno wn) date) unknown) (unknown) (no (unknown) (unknown) 22:00 01/31/22 (units (unknown) date) unknown) (unknown) (no (unknown) (unknown) 22:05 (units (unkno wn) date) unknown) (unknown) (no (unknown) (unknown) 22:15 01/31/22 (units (unknown) date) unknown) (unknown) (no (unknown) (unknown) 22:15 (units (unkno wn) date) unknown) (unknown) (no (unknown) (unknown) 22:21 01/31/22 (units (unknown) date) unknown) (unknown) (no (unknown) (unknown) 22:21 (units (unkno wn) date) unknown) (unknown) (no (unknown) (unknown) 22:30 01/31/22 (units (unknown) date) unknown) (unknown) (no (unknown) (unknown) 22:30 (units (unkno wn) date) unknown) (unknown) (no (unknown) (unknown) 22:40 01/31/22 (units (unknown) date) unknown) (unknown) (no (unknown) (unknown) 22:45 01/31/22 (units (unknown) date) unknown) (unknown) (no (unknown) (unknown) 22:45 (units (unkno wn) date) unknown) (unknown) (no (unknown) (unknown) 22:49 01/31/22 (units (unknown) date) unknown) (unknown) (no (unknown) (unknown) 22:50 (units (unkno wn) date) unknown) (unknown) (no (unknown) (unknown) 22:52 01/31/22 (units (unknown) date) unknown) (unknown) (no (unknown) (unknown) 22:55 01/31/22 (units (unknown) date) unknown) (unknown) (no (unknown) (unknown) 23:00 01/31/22 (units (unknown) date) unknown) (unknown) (no (unknown) (unknown) 23:00 (units (unkno wn) date) unknown) (unknown) (no (unknown) (unknown) 23:06 01/31/22 (units (unknown) date) unknown) (unknown) (no (unknown) (unknown) 23:10 01/31/22 (units (unknown) date) unknown) (unknown) (no (unknown) (unknown) 23:10 (units (unkno wn) date) unknown) (unknown) (no (unknown) (unknown) 23:15 (units (unkno wn) date) unknown) (unknown) (no (unknown) (unknown) ALT 16 (units (unkno wn) date) unknown) (unknown) (no (unknown) (unknown) ALT (units (unkno wn) date) unknown) (unknown) (no (unknown) (unknown) APTT 31 (units (unkno wn) date) unknown) (unknown) (no (unknown) (unknown) APTT (units (unkno wn) date) unknown) (unknown) (no (unknown) (unknown) AST 31 (units (unkno wn) date) unknown) (unknown) (no (unknown) (unknown) AST (units (unkno wn) date) unknown) (unknown) (no (unknown) (unknown) Age/Sex: 71 / M (units (unknown) date) unknown) (unknown) (no (unknown) (unknown) Albumin 4.2 (units (un known) date) unknown) (unknown) (no (unknown) (unknown) Albumin (units (unkno wn) date) unknown) (unknown) (no (unknown) (unknown) Albumin/Globulin (units (unknown) date) Ratio 1.2 unknown) (unknown) (no (unknown) (unknown) Albumin/Globulin (units (unknown) date) Ratio unknown) (unknown) (no (unknown) (unknown) Alkaline (units (unkno wn) date) Phosphatase 66 unknown) (unknown) (no (unknown) (unknown) Alkaline (units (unkno wn) date) Phosphatase unknown) (unknown) (no (unknown) (unknown) Allergies (units (unkn own) date) unknown) (unknown) (no (unknown) (unknown) Allergy/AdvReac (units (unknown) date) Type Severity unknown) Reaction Status Date / Time (unknown) (no (unknown) (unknown) Anisocytosis 1+ H (units (unknown) date) unknown) (unknown) (no (unknown) (unknown) Anisocytosis (units (u nknown) date) unknown) (unknown) (no (unknown) (unknown) Assessment + Plan (units (unknown) date) unknown) (unknown) (no (unknown) (unknown) BUN 22 H (units (unkno wn) date) unknown) (unknown) (no (unknown) (unknown) BUN (units (unkno wn) date) unknown) (unknown) (no (unknown) (unknown) BUN/Creatinine (units (unknown) date) Ratio 13.8 unknown) (unknown) (no (unknown) (unknown) BUN/Creatinine (units (unknown) date) Ratio unknown) (unknown) (no (unknown) (unknown) Band Neutrophils % (units (unknown) date) 12.0 H unknown) (unknown) (no (unknown) (unknown) Band Neutrophils % (units (unknown) date) unknown) (unknown) (no (unknown) (unknown) Baso # (Auto) Not (units (unknown) date) Reportable unknown) (unknown) (no (unknown) (unknown) Baso # (Auto) (units ( unknown) date) unknown) (unknown) (no (unknown) (unknown) Baso % (Auto) Not (units (unknown) date) Reportable unknown) (unknown) (no (unknown) (unknown) Baso % (Auto) (units ( unknown) date) unknown) (unknown) (no (unknown) (unknown) Been Physically (units (unknown) date) Hurt or No unknown) (unknown) (no (unknown) (unknown) Blood Pressure (units (unknown) date) 115/69 120/75 unknown) 128/77 (unknown) (no (unknown) (unknown) Blood Pressure (units (unknown) date) 127/80 unknown) (unknown) (no (unknown) (unknown) Blood Pressure (units (unknown) date) 128/76 160/104 H unknown) (unknown) (no (unknown) (unknown) Blood Pressure (units (unknown) date) 132/79 unknown) (unknown) (no (unknown) (unknown) Blood Pressure (units (unknown) date) 134/75 139/80 unknown) (unknown) (no (unknown) (unknown) Blood Pressure (units (unknown) date) 136/78 unknown) (unknown) (no (unknown) (unknown) Blood Pressure (units (unknown) date) 137/76 unknown) (unknown) (no (unknown) (unknown) Blood Pressure (units (unknown) date) 138/78 146/84 H unknown) (unknown) (no (unknown) (unknown) Blood Pressure (units (unknown) date) 147/79 H unknown) (unknown) (no (unknown) (unknown) Blood Pressure (units (unknown) date) 150/100 H unknown) (unknown) (no (unknown) (unknown) Blood Pressure (units (unknown) date) 153/77 H 128/76 unknown) (unknown) (no (unknown) (unknown) Blood Pressure (units (unknown) date) 153/93 H 113/68 unknown) (unknown) (no (unknown) (unknown) Blood Pressure (units (unknown) date) 159/99 H 139/80 unknown) (unknown) (no (unknown) (unknown) Blood Pressure (units (unknown) date) 174/114 H unknown) (unknown) (no (unknown) (unknown) Blood Pressure (units (unknown) date) 206/130 H 170/100 H unknown) (unknown) (no (unknown) (unknown) CK-MB (CK-2) Rel (units (unknown) date) Index TNP unknown) (unknown) (no (unknown) (unknown) CK-MB (CK-2) Rel (units (unknown) date) Index unknown) (unknown) (no (unknown) (unknown) CK-MB (CK-2) TNP (units (unknown) date) unknown) (unknown) (no (unknown) (unknown) CK-MB (CK-2) (units (u nknown) date) unknown) (unknown) (no (unknown) (unknown) Calcium 8.1 L (units ( unknown) date) unknown) (unknown) (no (unknown) (unknown) Calcium (units (unkno wn) date) unknown) (unknown) (no (unknown) (unknown) Carbon Dioxide 23 (units (unknown) date) unknown) (unknown) (no (unknown) (unknown) Carbon Dioxide (units (unknown) date) unknown) (unknown) (no (unknown) (unknown) Chief complaint: (units (unknown) date) Vomiting, Stomach unknown) cramps, SOB (unknown) (no (unknown) (unknown) Chloride 96 L (units ( unknown) date) unknown) (unknown) (no (unknown) (unknown) Chloride (units (unkno wn) date) unknown) (unknown) (no (unknown) (unknown) Creatinine 1.60 H (units (unknown) date) unknown) (unknown) (no (unknown) (unknown) Creatinine (units (unk nown) date) unknown) (unknown) (no (unknown) (unknown) Critical Care (units ( unknown) date) time: unknown) (unknown) (no (unknown) (unknown) D-Dimer 821 H (units ( unknown) date) unknown) (unknown) (no (unknown) (unknown) D-Dimer (units (unkno wn) date) unknown) (unknown) (no (unknown) (unknown) : 1950 (units (unknown) date) Acct:[id number] unknown) (unknown) (no (unknown) (unknown) Date Patient Seen: (units (unknown) date) 02/01/22 unknown) (unknown) (no (unknown) (unknown) Date of Service: (units (unknown) date) 01/31/22 unknown) (unknown) (no (unknown) (unknown) Environment (units (un known) date) unknown) (unknown) (no (unknown) (unknown) Eos % (Auto) Not (units (unknown) date) Reportable unknown) (unknown) (no (unknown) (unknown) Eos % (Auto) (units (u nknown) date) unknown) (unknown) (no (unknown) (unknown) Estimated GFR 45 L (units (unknown) date) unknown) (unknown) (no (unknown) (unknown) Estimated GFR (units ( unknown) date) unknown) (unknown) (no (unknown) (unknown) Exam (units (unkno wn) date) unknown) (unknown) (no (unknown) (unknown) Family + Social (units (unknown) date) History unknown) (unknown) (no (unknown) (unknown) Feels Safe in (units ( unknown) date) Current Yes unknown) (unknown) (no (unknown) (unknown) Globulin 3.4 (units (u nknown) date) unknown) (unknown) (no (unknown) (unknown) Globulin (units (unkno wn) date) unknown) (unknown) (no (unknown) (unknown) Glucose 262 H (units ( unknown) date) unknown) (unknown) (no (unknown) (unknown) Glucose (units (unkno wn) date) unknown) (unknown) (no (unknown) (unknown) Hct 38.2 L (units (unk nown) date) unknown) (unknown) (no (unknown) (unknown) Hct (units (unkno wn) date) unknown) (unknown) (no (unknown) (unknown) Hgb 13.3 L (units (unk nown) date) unknown) (unknown) (no (unknown) (unknown) Hgb (units (unkno wn) date) unknown) (unknown) (no (unknown) (unknown) History + Physical (units (unknown) date) Report unknown) (unknown) (no (unknown) (unknown) History of Present (units (unknown) date) Illness unknown) (unknown) (no (unknown) (unknown) History of kidney (units (unknown) date) stones unknown) (unknown) (no (unknown) (unknown) Home Medications (units (unknown) date) and Allergies unknown) (unknown) (no (unknown) (unknown) Home Medications (units (unknown) date) unknown) (unknown) (no (unknown) (unknown) Hyperlipidemia (units (unknown) date) unknown) (unknown) (no (unknown) (unknown) Hypertension (units (u nknown) date) unknown) (unknown) (no (unknown) (unknown) I spent a total of (units (unknown) date) [] minutes of unknown) critical care time on this patient's care (unknown) (no (unknown) (unknown) INR 1.6 H (units (unkn own) date) unknown) (unknown) (no (unknown) (unknown) INR (units (unkno wn) date) unknown) (unknown) (no (unknown) (unknown) [facility] (units (unknown) date) [address] unknown) [place] [address] (unknown) (no (unknown) (unknown) Kidney stones (units ( unknown) date) unknown) (unknown) (no (unknown) (unknown) Laboratory Results (units (unknown) date) - last 24 hr unknown) (unknown) (no (unknown) (unknown) Labs (units (unkno wn) date) unknown) (unknown) (no (unknown) (unknown) Labs: (units (unkno wn) date) unknown) (unknown) (no (unknown) (unknown) Lactate 3.0 H (units ( unknown) date) unknown) (unknown) (no (unknown) (unknown) Lactate (units (unkno wn) date) unknown) (unknown) (no (unknown) (unknown) Lymph # (Auto) Not (units (unknown) date) Reportable unknown) (unknown) (no (unknown) (unknown) Lymph # (Auto) (units (unknown) date) unknown) (unknown) (no (unknown) (unknown) Lymph % (Auto) Not (units (unknown) date) Reportable unknown) (unknown) (no (unknown) (unknown) Lymph % (Auto) (units (unknown) date) unknown) (unknown) (no (unknown) (unknown) Lymphocytes % (units ( unknown) date) (Manual) 5.0 L unknown) (unknown) (no (unknown) (unknown) Lymphocytes % (units ( unknown) date) (Manual) unknown) (unknown) (no (unknown) (unknown) [id number] (units (unk nown) date) unknown) (unknown) (no (unknown) (unknown) MCH 28.5 (units (unkno wn) date) unknown) (unknown) (no (unknown) (unknown) MCH (units (unkno wn) date) unknown) (unknown) (no (unknown) (unknown) MCHC 34.8 (units (unkn own) date) unknown) (unknown) (no (unknown) (unknown) MCHC (units (unkno wn) date) unknown) (unknown) (no (unknown) (unknown) MCV 81.8 (units (unkno wn) date) unknown) (unknown) (no (unknown) (unknown) MCV (units (unkno wn) date) unknown) (unknown) (no (unknown) (unknown) Pascual Mccormick (units (unknown) date) is a 71 y.o. male unknown) (unknown) (no (unknown) (unknown) Medical History (units (unknown) date) (Updated 01/31/22 @ unknown) 23:30 by Kyleigh Castellanos MD) (unknown) (no (unknown) (unknown) Medication (units (unk nown) date) Instructions unknown) Recorded Confirmed Type (unknown) (no (unknown) (unknown) Meds (units (unkno wn) date) unknown) (unknown) (no (unknown) (unknown) [place] # (Auto) Not (units (unknown) date) Reportable unknown) (unknown) (no (unknown) (unknown) [place] # (Auto) (units ( unknown) date) unknown) (unknown) (no (unknown) (unknown) [place] % (Auto) Not (units (unknown) date) Reportable unknown) (unknown) (no (unknown) (unknown) [place] % (Auto) (units ( unknown) date) unknown) (unknown) (no (unknown) (unknown) Monocytes % (units (un known) date) (Manual) 1.0 L unknown) (unknown) (no (unknown) (unknown) Monocytes % (units (un known) date) (Manual) unknown) (unknown) (no (unknown) (unknown) Narrative: (units (unk nown) date) unknown) (unknown) (no (unknown) (unknown) Neut % (Auto) Not (units (unknown) date) Reportable unknown) (unknown) (no (unknown) (unknown) Neut % (Auto) (units ( unknown) date) unknown) (unknown) (no (unknown) (unknown) Neutrophils # (units ( unknown) date) (Manual) [id number] H unknown) (unknown) (no (unknown) (unknown) Neutrophils # (units ( unknown) date) (Manual) unknown) (unknown) (no (unknown) (unknown) Objective (units (unkn own) date) unknown) (unknown) (no (unknown) (unknown) Oxygen Delivery (units (unknown) date) Method Room Air unknown) Room Air (unknown) (no (unknown) (unknown) Oxygen Delivery (units (unknown) date) Method Room Air unknown) (unknown) (no (unknown) (unknown) Oxygen Delivery (units (unknown) date) Method unknown) (unknown) (no (unknown) (unknown) PT 18.9 H (units (unkn own) date) unknown) (unknown) (no (unknown) (unknown) PT (units (unkno wn) date) unknown) (unknown) (no (unknown) (unknown) Patient History (units (unknown) date) unknown) (unknown) (no (unknown) (unknown) Patient: (units (unkno wn) date) Pascual Padilla unknown) MR#: (unknown) (no (unknown) (unknown) Penicillins (units (un known) date) Allergy Rash unknown) Verified 01/31/22 19:12 (unknown) (no (unknown) (unknown) Plt Count 156 (units ( unknown) date) unknown) (unknown) (no (unknown) (unknown) Plt Count (units (unkn own) date) unknown) (unknown) (no (unknown) (unknown) Potassium 3.6 (units ( unknown) date) unknown) (unknown) (no (unknown) (unknown) Potassium (units (unkn own) date) unknown) (unknown) (no (unknown) (unknown) Procalcitonin 4.70 (units (unknown) date) H unknown) (unknown) (no (unknown) (unknown) Procalcitonin (units ( unknown) date) unknown) (unknown) (no (unknown) (unknown) Provider: (units (unkn own) date) Modesta Thompson unknown) (unknown) (no (unknown) (unknown) Pulse Oximetry 100 (units (unknown) date) unknown) (unknown) (no (unknown) (unknown) Pulse Oximetry 81 (units (unknown) date) L unknown) (unknown) (no (unknown) (unknown) Pulse Oximetry 84 (units (unknown) date) L unknown) (unknown) (no (unknown) (unknown) Pulse Oximetry 92 (units (unknown) date) 77 L unknown) (unknown) (no (unknown) (unknown) Pulse Oximetry 94 (units (unknown) date) unknown) (unknown) (no (unknown) (unknown) Pulse Oximetry 96 (units (unknown) date) unknown) (unknown) (no (unknown) (unknown) Pulse Oximetry 97 (units (unknown) date) 95 unknown) (unknown) (no (unknown) (unknown) Pulse Oximetry 97 (units (unknown) date) 96 unknown) (unknown) (no (unknown) (unknown) Pulse Oximetry 98 (units (unknown) date) 95 unknown) (unknown) (no (unknown) (unknown) Pulse Oximetry 98 (units (unknown) date) 97 unknown) (unknown) (no (unknown) (unknown) Pulse Oximetry 98 (units (unknown) date) unknown) (unknown) (no (unknown) (unknown) Pulse Oximetry 99 (units (unknown) date) unknown) (unknown) (no (unknown) (unknown) Pulse Oximetry (units (unknown) date) unknown) (unknown) (no (unknown) (unknown) Pulse Rate 117 H (units (unknown) date) 124 H unknown) (unknown) (no (unknown) (unknown) Pulse Rate 118 H (units (unknown) date) 67 unknown) (unknown) (no (unknown) (unknown) Pulse Rate 119 H (units (unknown) date) 120 H unknown) (unknown) (no (unknown) (unknown) Pulse Rate 119 H (units (unknown) date) unknown) (unknown) (no (unknown) (unknown) Pulse Rate 122 H (units (unknown) date) 116 H unknown) (unknown) (no (unknown) (unknown) Pulse Rate 122 H (units (unknown) date) unknown) (unknown) (no (unknown) (unknown) Pulse Rate 124 H (units (unknown) date) 139 H unknown) (unknown) (no (unknown) (unknown) Pulse Rate 128 H (units (unknown) date) unknown) (unknown) (no (unknown) (unknown) Pulse Rate 143 H (units (unknown) date) unknown) (unknown) (no (unknown) (unknown) Pulse Rate 144 H (units (unknown) date) unknown) (unknown) (no (unknown) (unknown) Pulse Rate 150 H (units (unknown) date) 170 H unknown) (unknown) (no (unknown) (unknown) Pulse Rate 156 H (units (unknown) date) unknown) (unknown) (no (unknown) (unknown) Pulse Rate 162 H (units (unknown) date) unknown) (unknown) (no (unknown) (unknown) Pulse Rate (units (unk nown) date) unknown) (unknown) (no (unknown) (unknown) RBC 4.66 (units (unkno wn) date) unknown) (unknown) (no (unknown) (unknown) RBC Morphology See (units (unknown) date) below unknown) (unknown) (no (unknown) (unknown) RBC Morphology (units (unknown) date) unknown) (unknown) (no (unknown) (unknown) RBC (units (unkno wn) date) unknown) (unknown) (no (unknown) (unknown) RDW 14.0 (units (unkno wn) date) unknown) (unknown) (no (unknown) (unknown) RDW (units (unkno wn) date) unknown) (unknown) (no (unknown) (unknown) Respiratory Rate 0 (units (unknown) date) L unknown) (unknown) (no (unknown) (unknown) Respiratory Rate (units (unknown) date) 22 unknown) (unknown) (no (unknown) (unknown) Respiratory Rate (units (unknown) date) 25 H 42 H unknown) (unknown) (no (unknown) (unknown) Respiratory Rate (units (unknown) date) 25 H unknown) (unknown) (no (unknown) (unknown) Respiratory Rate (units (unknown) date) 30 H unknown) (unknown) (no (unknown) (unknown) Respiratory Rate (units (unknown) date) 31 H unknown) (unknown) (no (unknown) (unknown) Respiratory Rate (units (unknown) date) 35 H unknown) (unknown) (no (unknown) (unknown) Respiratory Rate (units (unknown) date) 37 H unknown) (unknown) (no (unknown) (unknown) Respiratory Rate (units (unknown) date) 39 H 41 H unknown) (unknown) (no (unknown) (unknown) Respiratory Rate (units (unknown) date) 40 H unknown) (unknown) (no (unknown) (unknown) Respiratory Rate (units (unknown) date) 43 H unknown) (unknown) (no (unknown) (unknown) Respiratory Rate (units (unknown) date) 48 H 51 H unknown) (unknown) (no (unknown) (unknown) Respiratory Rate (units (unknown) date) unknown) (unknown) (no (unknown) (unknown) Result Diagrams: (units (unknown) date) unknown) (unknown) (no (unknown) (unknown) SARS-CoV-2 (PCR) (units (unknown) date) Negative unknown) (unknown) (no (unknown) (unknown) SARS-CoV-2 (PCR) (units (unknown) date) unknown) (unknown) (no (unknown) (unknown) Safety + (units (unkno wn) date) Behavioral: unknown) (unknown) (no (unknown) (unknown) Seg Neutrophils % (units (unknown) date) 82.0 H unknown) (unknown) (no (unknown) (unknown) Seg Neutrophils % (units (unknown) date) unknown) (unknown) (no (unknown) (unknown) Signed By: (units (unk nown) date) unknown) (unknown) (no (unknown) (unknown) Smoking Status (units (unknown) date) Never smoker unknown) (unknown) (no (unknown) (unknown) Social History: (units (unknown) date) unknown) (unknown) (no (unknown) (unknown) Sodium 135 L (units (u nknown) date) unknown) (unknown) (no (unknown) (unknown) Sodium (units (unkno wn) date) unknown) (unknown) (no (unknown) (unknown) Substance Use Type (units (unknown) date) does not use unknown) (unknown) (no (unknown) (unknown) Temperature 103.5 (units (unknown) date) F H unknown) (unknown) (no (unknown) (unknown) Temperature 103.8 (units (unknown) date) F H unknown) (unknown) (no (unknown) (unknown) Temperature 98.3 F (units (unknown) date) unknown) (unknown) (no (unknown) (unknown) Temperature (units (un known) date) unknown) (unknown) (no (unknown) (unknown) Threatened By a (units (unknown) date) Person unknown) (unknown) (no (unknown) (unknown) Time Patient Seen: (units (unknown) date) 00:12 unknown) (unknown) (no (unknown) (unknown) Time Spent With (units (unknown) date) Patient unknown) (unknown) (no (unknown) (unknown) Tobacco + (units (unkn own) date) Substance use: unknown) (unknown) (no (unknown) (unknown) Total Bilirubin (units (unknown) date) 2.2 H unknown) (unknown) (no (unknown) (unknown) Total Bilirubin (units (unknown) date) unknown) (unknown) (no (unknown) (unknown) Total Counted 100 (units (unknown) date) unknown) (unknown) (no (unknown) (unknown) Total Counted (units ( unknown) date) unknown) (unknown) (no (unknown) (unknown) Total Creatine (units (unknown) date) Kinase 59 unknown) (unknown) (no (unknown) (unknown) Total Creatine (units (unknown) date) Kinase unknown) (unknown) (no (unknown) (unknown) Total Protein 7.6 (units (unknown) date) unknown) (unknown) (no (unknown) (unknown) Total Protein (units ( unknown) date) unknown) (unknown) (no (unknown) (unknown) Troponin I 0.608 (units (unknown) date) H* unknown) (unknown) (no (unknown) (unknown) Troponin I 0.924 (units (unknown) date) H* unknown) (unknown) (no (unknown) (unknown) Troponin I (units (unk nown) date) unknown) (unknown) (no (unknown) (unknown) Type 2 diabetes (units (unknown) date) mellitus unknown) (unknown) (no (unknown) (unknown) Ur Culture (units (unk nown) date) Indicated? Specimen unknown) cultured (unknown) (no (unknown) (unknown) Ur Culture (units (unk nown) date) Indicated? unknown) (unknown) (no (unknown) (unknown) Ur Leukocyte (units (u nknown) date) Esterase 2+ H unknown) (unknown) (no (unknown) (unknown) Ur Leukocyte (units (u nknown) date) Esterase unknown) (unknown) (no (unknown) (unknown) Ur Specific (units (un known) date) [place] 1.010 unknown) (unknown) (no (unknown) (unknown) Ur Specific (units (un known) date) [place] unknown) (unknown) (no (unknown) (unknown) Ur Squamous Epith (units (unknown) date) Cells None seen unknown) (unknown) (no (unknown) (unknown) Ur Squamous Epith (units (unknown) date) Cells unknown) (unknown) (no (unknown) (unknown) Urine Appearance (units (unknown) date) Sl cloudy unknown) (unknown) (no (unknown) (unknown) Urine Appearance (units (unknown) date) unknown) (unknown) (no (unknown) (unknown) Urine Bacteria (units (unknown) date) Many (>30) H unknown) (unknown) (no (unknown) (unknown) Urine Bacteria (units (unknown) date) unknown) (unknown) (no (unknown) (unknown) Urine Bilirubin (units (unknown) date) Negative unknown) (unknown) (no (unknown) (unknown) Urine Bilirubin (units (unknown) date) unknown) (unknown) (no (unknown) (unknown) Urine Color Yellow (units (unknown) date) unknown) (unknown) (no (unknown) (unknown) Urine Color (units (un known) date) unknown) (unknown) (no (unknown) (unknown) Urine Glucose (UA) (units (unknown) date) Negative unknown) (unknown) (no (unknown) (unknown) Urine Glucose (UA) (units (unknown) date) unknown) (unknown) (no (unknown) (unknown) Urine Ketones (units ( unknown) date) Negative unknown) (unknown) (no (unknown) (unknown) Urine Ketones (units ( unknown) date) unknown) (unknown) (no (unknown) (unknown) Urine Nitrate (units ( unknown) date) Negative unknown) (unknown) (no (unknown) (unknown) Urine Nitrate (units ( unknown) date) unknown) (unknown) (no (unknown) (unknown) Urine Occult Blood (units (unknown) date) 1+ H unknown) (unknown) (no (unknown) (unknown) Urine Occult Blood (units (unknown) date) unknown) (unknown) (no (unknown) (unknown) Urine Protein 1+ H (units (unknown) date) unknown) (unknown) (no (unknown) (unknown) Urine Protein (units ( unknown) date) unknown) (unknown) (no (unknown) (unknown) Urine RBC 0-1/hpf (units (unknown) date) unknown) (unknown) (no (unknown) (unknown) Urine RBC (units (unkn own) date) unknown) (unknown) (no (unknown) (unknown) Urine Urobilinogen (units (unknown) date) 0.2 unknown) (unknown) (no (unknown) (unknown) Urine Urobilinogen (units (unknown) date) unknown) (unknown) (no (unknown) (unknown) Urine WBC (units (unkn own) date) 30-100/hpf H unknown) (unknown) (no (unknown) (unknown) Urine WBC (units (unkn own) date) unknown) (unknown) (no (unknown) (unknown) Urine pH 5.0 (units (u nknown) date) unknown) (unknown) (no (unknown) (unknown) Urine pH (units (unkno wn) date) unknown) (unknown) (no (unknown) (unknown) Vital Signs (units (un known) date) unknown) (unknown) (no (unknown) (unknown) WBC 29.1 H (units (unk nown) date) unknown) (unknown) (no (unknown) (unknown) WBC (units (unkno wn) date) unknown) (unknown) (no (unknown) (unknown) [Embedded Image (units (unknown) date) Not Available] unknown) (unknown) (no (unknown) (unknown) alcohol intake (units (unknown) date) current unknown) (unknown) (no (unknown) (unknown) alcohol intake (units (unknown) date) frequency unknown) holiday/special occasion (unknown) (no (unknown) (unknown) amlodipine 10 mg (units (unknown) date) tablet 10 mg PO unknown) DAILY 01/27/18 07/13/19 History (unknown) (no (unknown) (unknown) chlorthalidone 50 (units (unknown) date) mg tablet 50 mg PO unknown) DAILY 01/27/18 07/13/19 History (unknown) (no (unknown) (unknown) exenatide (units (unkn own) date) microspheres 2 unknown) mg/0.85 2 mg SUBCUT QWEEK 07/05/19 07/13/19 History (unknown) (no (unknown) (unknown) fenofibrate (units (un known) date) nanocrystallized unknown) 145 145 mg PO DAILY 07/05/19 07/13/19 History (unknown) (no (unknown) (unknown) household members (units (unknown) date) spouse unknown) (unknown) (no (unknown) (unknown) insulin glargine (units (unknown) date) 100 unit/mL (3 26 unknown) units SUBCUT DAILY 01/27/18 07/13/19 History (unknown) (no (unknown) (unknown) levofloxacin [From (units (unknown) date) Levaquin] Allergy unknown) Rash Verified 01/31/22 19:12 (unknown) (no (unknown) (unknown) losartan 100 mg (units (unknown) date) tablet 100 mg PO unknown) DAILY 01/27/18 07/13/19 History (unknown) (no (unknown) (unknown) mL subcutaneous (units (unknown) date) auto-injector unknown) (unknown) (no (unknown) (unknown) mL) subcutaneous (units (unknown) date) pen unknown) (unknown) (no (unknown) (unknown) metformin 500 mg (units (unknown) date) tablet 500 mg PO unknown) BID 01/27/18 07/13/19 History (unknown) (no (unknown) (unknown) mg tablet (units (unkn own) date) unknown) (unknown) (no (unknown) (unknown) oxycodone 5 mg (units (unknown) date) capsule 5 mg PO Q4H unknown) PRN pain #14 caps 07/13/19 Rx (unknown) (no (unknown) (unknown) rosuvastatin 40 mg (units (unknown) date) tablet 40 mg PO unknown) DAILY 07/05/19 07/13/19 History (unknown) (no (unknown) (unknown) tamsulosin 0.4 mg (units (unknown) date) capsule 0.4 mg PO unknown) DAILY #60 caps 07/13/19 07/13/19 Rx (unknown) (no (unknown) (unknown) today; this time (units (unknown) date) is exclusive of unknown) procedural time. Result panel 26 (unknown) (no (unknown) (unknown) (no value) (units (unk nown) date) unknown) (unknown) (no (unknown) (unknown) ([place] BCise) (units (unknown) date) unknown) (unknown) (no (unknown) (unknown) (past 8 hours): (units (unknown) date) unknown) (unknown) (no (unknown) (unknown) 01/31/22 01/31/22 (units (unknown) date) 01/31/22 unknown) (unknown) (no (unknown) (unknown) 01/31/22 20:00 (units (unknown) date) unknown) (unknown) (no (unknown) (unknown) 01/31/22 (units (unkno wn) date) unknown) (unknown) (no (unknown) (unknown) 19:06 01/31/22 (units (unknown) date) unknown) (unknown) (no (unknown) (unknown) 19:19 01/31/22 (units (unknown) date) unknown) (unknown) (no (unknown) (unknown) 19:20 01/31/22 (units (unknown) date) unknown) (unknown) (no (unknown) (unknown) 19:20 (units (unkno wn) date) unknown) (unknown) (no (unknown) (unknown) 19:30 01/31/22 (units (unknown) date) unknown) (unknown) (no (unknown) (unknown) 19:30 (units (unkno wn) date) unknown) (unknown) (no (unknown) (unknown) 20:00 01/31/22 (units (unknown) date) unknown) (unknown) (no (unknown) (unknown) 20:00 20:00 20:00 (units (unknown) date) unknown) (unknown) (no (unknown) (unknown) 20:14 22:13 22:13 (units (unknown) date) unknown) (unknown) (no (unknown) (unknown) 20:30 01/31/22 (units (unknown) date) unknown) (unknown) (no (unknown) (unknown) 20:30 (units (unkno wn) date) unknown) (unknown) (no (unknown) (unknown) 20:45 01/31/22 (units (unknown) date) unknown) (unknown) (no (unknown) (unknown) 21:07 (units (unkno wn) date) unknown) (unknown) (no (unknown) (unknown) 21:11 01/31/22 (units (unknown) date) unknown) (unknown) (no (unknown) (unknown) 21:15 01/31/22 (units (unknown) date) unknown) (unknown) (no (unknown) (unknown) 21:30 01/31/22 (units (unknown) date) unknown) (unknown) (no (unknown) (unknown) 21:30 (units (unkno wn) date) unknown) (unknown) (no (unknown) (unknown) 21:46 01/31/22 (units (unknown) date) unknown) (unknown) (no (unknown) (unknown) 21:46 (units (unkno wn) date) unknown) (unknown) (no (unknown) (unknown) 22:00 01/31/22 (units (unknown) date) unknown) (unknown) (no (unknown) (unknown) 22:05 (units (unkno wn) date) unknown) (unknown) (no (unknown) (unknown) 22:15 01/31/22 (units (unknown) date) unknown) (unknown) (no (unknown) (unknown) 22:15 (units (unkno wn) date) unknown) (unknown) (no (unknown) (unknown) 22:21 01/31/22 (units (unknown) date) unknown) (unknown) (no (unknown) (unknown) 22:21 (units (unkno wn) date) unknown) (unknown) (no (unknown) (unknown) 22:30 01/31/22 (units (unknown) date) unknown) (unknown) (no (unknown) (unknown) 22:30 (units (unkno wn) date) unknown) (unknown) (no (unknown) (unknown) 22:40 01/31/22 (units (unknown) date) unknown) (unknown) (no (unknown) (unknown) 22:45 01/31/22 (units (unknown) date) unknown) (unknown) (no (unknown) (unknown) 22:45 (units (unkno wn) date) unknown) (unknown) (no (unknown) (unknown) 22:49 01/31/22 (units (unknown) date) unknown) (unknown) (no (unknown) (unknown) 22:50 (units (unkno wn) date) unknown) (unknown) (no (unknown) (unknown) 22:52 01/31/22 (units (unknown) date) unknown) (unknown) (no (unknown) (unknown) 22:55 01/31/22 (units (unknown) date) unknown) (unknown) (no (unknown) (unknown) 23:00 01/31/22 (units (unknown) date) unknown) (unknown) (no (unknown) (unknown) 23:00 (units (unkno wn) date) unknown) (unknown) (no (unknown) (unknown) 23:06 01/31/22 (units (unknown) date) unknown) (unknown) (no (unknown) (unknown) 23:10 01/31/22 (units (unknown) date) unknown) (unknown) (no (unknown) (unknown) 23:10 (units (unkno wn) date) unknown) (unknown) (no (unknown) (unknown) 23:15 (units (unkno wn) date) unknown) (unknown) (no (unknown) (unknown) ALT 16 (units (unkno wn) date) unknown) (unknown) (no (unknown) (unknown) ALT (units (unkno wn) date) unknown) (unknown) (no (unknown) (unknown) APTT 31 (units (unkno wn) date) unknown) (unknown) (no (unknown) (unknown) APTT (units (unkno wn) date) unknown) (unknown) (no (unknown) (unknown) AST 31 (units (unkno wn) date) unknown) (unknown) (no (unknown) (unknown) AST (units (unkno wn) date) unknown) (unknown) (no (unknown) (unknown) Age/Sex: 71 / M (units (unknown) date) unknown) (unknown) (no (unknown) (unknown) Albumin 4.2 (units (un known) date) unknown) (unknown) (no (unknown) (unknown) Albumin (units (unkno wn) date) unknown) (unknown) (no (unknown) (unknown) Albumin/Globulin (units (unknown) date) Ratio 1.2 unknown) (unknown) (no (unknown) (unknown) Albumin/Globulin (units (unknown) date) Ratio unknown) (unknown) (no (unknown) (unknown) Alkaline (units (unkno wn) date) Phosphatase 66 unknown) (unknown) (no (unknown) (unknown) Alkaline (units (unkno wn) date) Phosphatase unknown) (unknown) (no (unknown) (unknown) Allergies (units (unkn own) date) unknown) (unknown) (no (unknown) (unknown) Allergy/AdvReac (units (unknown) date) Type Severity unknown) Reaction Status Date / Time (unknown) (no (unknown) (unknown) Anisocytosis 1+ H (units (unknown) date) unknown) (unknown) (no (unknown) (unknown) Anisocytosis (units (u nknown) date) unknown) (unknown) (no (unknown) (unknown) Assessment + Plan (units (unknown) date) unknown) (unknown) (no (unknown) (unknown) BUN 22 H (units (unkno wn) date) unknown) (unknown) (no (unknown) (unknown) BUN (units (unkno wn) date) unknown) (unknown) (no (unknown) (unknown) BUN/Creatinine (units (unknown) date) Ratio 13.8 unknown) (unknown) (no (unknown) (unknown) BUN/Creatinine (units (unknown) date) Ratio unknown) (unknown) (no (unknown) (unknown) Band Neutrophils % (units (unknown) date) 12.0 H unknown) (unknown) (no (unknown) (unknown) Band Neutrophils % (units (unknown) date) unknown) (unknown) (no (unknown) (unknown) Baso # (Auto) Not (units (unknown) date) Reportable unknown) (unknown) (no (unknown) (unknown) Baso # (Auto) (units ( unknown) date) unknown) (unknown) (no (unknown) (unknown) Baso % (Auto) Not (units (unknown) date) Reportable unknown) (unknown) (no (unknown) (unknown) Baso % (Auto) (units ( unknown) date) unknown) (unknown) (no (unknown) (unknown) Been Physically (units (unknown) date) Hurt or No unknown) (unknown) (no (unknown) (unknown) Blood Pressure (units (unknown) date) 115/69 120/75 unknown) 128/77 (unknown) (no (unknown) (unknown) Blood Pressure (units (unknown) date) 127/80 unknown) (unknown) (no (unknown) (unknown) Blood Pressure (units (unknown) date) 128/76 160/104 H unknown) (unknown) (no (unknown) (unknown) Blood Pressure (units (unknown) date) 132/79 unknown) (unknown) (no (unknown) (unknown) Blood Pressure (units (unknown) date) 134/75 139/80 unknown) (unknown) (no (unknown) (unknown) Blood Pressure (units (unknown) date) 136/78 unknown) (unknown) (no (unknown) (unknown) Blood Pressure (units (unknown) date) 137/76 unknown) (unknown) (no (unknown) (unknown) Blood Pressure (units (unknown) date) 138/78 146/84 H unknown) (unknown) (no (unknown) (unknown) Blood Pressure (units (unknown) date) 147/79 H unknown) (unknown) (no (unknown) (unknown) Blood Pressure (units (unknown) date) 150/100 H unknown) (unknown) (no (unknown) (unknown) Blood Pressure (units (unknown) date) 153/77 H 128/76 unknown) (unknown) (no (unknown) (unknown) Blood Pressure (units (unknown) date) 153/93 H 113/68 unknown) (unknown) (no (unknown) (unknown) Blood Pressure (units (unknown) date) 159/99 H 139/80 unknown) (unknown) (no (unknown) (unknown) Blood Pressure (units (unknown) date) 174/114 H unknown) (unknown) (no (unknown) (unknown) Blood Pressure (units (unknown) date) 206/130 H 170/100 H unknown) (unknown) (no (unknown) (unknown) CK-MB (CK-2) Rel (units (unknown) date) Index TNP unknown) (unknown) (no (unknown) (unknown) CK-MB (CK-2) Rel (units (unknown) date) Index unknown) (unknown) (no (unknown) (unknown) CK-MB (CK-2) TNP (units (unknown) date) unknown) (unknown) (no (unknown) (unknown) CK-MB (CK-2) (units (u nknown) date) unknown) (unknown) (no (unknown) (unknown) Calcium 8.1 L (units ( unknown) date) unknown) (unknown) (no (unknown) (unknown) Calcium (units (unkno wn) date) unknown) (unknown) (no (unknown) (unknown) Carbon Dioxide 23 (units (unknown) date) unknown) (unknown) (no (unknown) (unknown) Carbon Dioxide (units (unknown) date) unknown) (unknown) (no (unknown) (unknown) Chief complaint: (units (unknown) date) Vomiting, Stomach unknown) cramps, SOB (unknown) (no (unknown) (unknown) Chloride 96 L (units ( unknown) date) unknown) (unknown) (no (unknown) (unknown) Chloride (units (unkno wn) date) unknown) (unknown) (no (unknown) (unknown) Creatinine 1.60 H (units (unknown) date) unknown) (unknown) (no (unknown) (unknown) Creatinine (units (unk nown) date) unknown) (unknown) (no (unknown) (unknown) Critical Care (units ( unknown) date) time: unknown) (unknown) (no (unknown) (unknown) D-Dimer 821 H (units ( unknown) date) unknown) (unknown) (no (unknown) (unknown) D-Dimer (units (unkno wn) date) unknown) (unknown) (no (unknown) (unknown) : 1950 (units (unknown) date) Acct:[id number] unknown) (unknown) (no (unknown) (unknown) Date Patient Seen: (units (unknown) date) 02/01/22 unknown) (unknown) (no (unknown) (unknown) Date of Service: (units (unknown) date) 01/31/22 unknown) (unknown) (no (unknown) (unknown) Environment (units (un known) date) unknown) (unknown) (no (unknown) (unknown) Eos % (Auto) Not (units (unknown) date) Reportable unknown) (unknown) (no (unknown) (unknown) Eos % (Auto) (units (u nknown) date) unknown) (unknown) (no (unknown) (unknown) Estimated GFR 45 L (units (unknown) date) unknown) (unknown) (no (unknown) (unknown) Estimated GFR (units ( unknown) date) unknown) (unknown) (no (unknown) (unknown) Exam (units (unkno wn) date) unknown) (unknown) (no (unknown) (unknown) Family + Social (units (unknown) date) History unknown) (unknown) (no (unknown) (unknown) Feels Safe in (units ( unknown) date) Current Yes unknown) (unknown) (no (unknown) (unknown) Globulin 3.4 (units (u nknown) date) unknown) (unknown) (no (unknown) (unknown) Globulin (units (unkno wn) date) unknown) (unknown) (no (unknown) (unknown) Glucose 262 H (units ( unknown) date) unknown) (unknown) (no (unknown) (unknown) Glucose (units (unkno wn) date) unknown) (unknown) (no (unknown) (unknown) Hct 38.2 L (units (unk nown) date) unknown) (unknown) (no (unknown) (unknown) Hct (units (unkno wn) date) unknown) (unknown) (no (unknown) (unknown) Hgb 13.3 L (units (unk nown) date) unknown) (unknown) (no (unknown) (unknown) Hgb (units (unkno wn) date) unknown) (unknown) (no (unknown) (unknown) History + Physical (units (unknown) date) Report unknown) (unknown) (no (unknown) (unknown) History of Present (units (unknown) date) Illness unknown) (unknown) (no (unknown) (unknown) History of kidney (units (unknown) date) stones unknown) (unknown) (no (unknown) (unknown) Home Medications (units (unknown) date) and Allergies unknown) (unknown) (no (unknown) (unknown) Home Medications (units (unknown) date) unknown) (unknown) (no (unknown) (unknown) Hyperlipidemia (units (unknown) date) unknown) (unknown) (no (unknown) (unknown) Hypertension (units (u nknown) date) unknown) (unknown) (no (unknown) (unknown) I spent a total of (units (unknown) date) [] minutes of unknown) critical care time on this patient's care (unknown) (no (unknown) (unknown) INR 1.6 H (units (unkn own) date) unknown) (unknown) (no (unknown) (unknown) INR (units (unkno wn) date) unknown) (unknown) (no (unknown) (unknown) [facility] (units (unknown) date) [address] unknown) [place] [address] (unknown) (no (unknown) (unknown) Kidney stones (units ( unknown) date) unknown) (unknown) (no (unknown) (unknown) Laboratory Results (units (unknown) date) - last 24 hr unknown) (unknown) (no (unknown) (unknown) Labs (units (unkno wn) date) unknown) (unknown) (no (unknown) (unknown) Labs: (units (unkno wn) date) unknown) (unknown) (no (unknown) (unknown) Lactate 3.0 H (units ( unknown) date) unknown) (unknown) (no (unknown) (unknown) Lactate (units (unkno wn) date) unknown) (unknown) (no (unknown) (unknown) Lymph # (Auto) Not (units (unknown) date) Reportable unknown) (unknown) (no (unknown) (unknown) Lymph # (Auto) (units (unknown) date) unknown) (unknown) (no (unknown) (unknown) Lymph % (Auto) Not (units (unknown) date) Reportable unknown) (unknown) (no (unknown) (unknown) Lymph % (Auto) (units (unknown) date) unknown) (unknown) (no (unknown) (unknown) Lymphocytes % (units ( unknown) date) (Manual) 5.0 L unknown) (unknown) (no (unknown) (unknown) Lymphocytes % (units ( unknown) date) (Manual) unknown) (unknown) (no (unknown) (unknown) [id number] (units (unk nown) date) unknown) (unknown) (no (unknown) (unknown) MCH 28.5 (units (unkno wn) date) unknown) (unknown) (no (unknown) (unknown) MCH (units (unkno wn) date) unknown) (unknown) (no (unknown) (unknown) MCHC 34.8 (units (unkn own) date) unknown) (unknown) (no (unknown) (unknown) MCHC (units (unkno wn) date) unknown) (unknown) (no (unknown) (unknown) MCV 81.8 (units (unkno wn) date) unknown) (unknown) (no (unknown) (unknown) MCV (units (unkno wn) date) unknown) (unknown) (no (unknown) (unknown) Pascual Mccormick (units (unknown) date) is a 71 y.o. male unknown) with a history of ?type 2 diabetes, (unknown) (no (unknown) (unknown) Medical History (units (unknown) date) (Updated 01/31/22 @ unknown) 23:30 by Kyleigh Castellanos MD) (unknown) (no (unknown) (unknown) Medication (units (unk nown) date) Instructions unknown) Recorded Confirmed Type (unknown) (no (unknown) (unknown) Meds (units (unkno wn) date) unknown) (unknown) (no (unknown) (unknown) [place] # (Auto) Not (units (unknown) date) Reportable unknown) (unknown) (no (unknown) (unknown) [place] # (Auto) (units ( unknown) date) unknown) (unknown) (no (unknown) (unknown) [place] % (Auto) Not (units (unknown) date) Reportable unknown) (unknown) (no (unknown) (unknown) [place] % (Auto) (units ( unknown) date) unknown) (unknown) (no (unknown) (unknown) Monocytes % (units (un known) date) (Manual) 1.0 L unknown) (unknown) (no (unknown) (unknown) Monocytes % (units (un known) date) (Manual) unknown) (unknown) (no (unknown) (unknown) Narrative: (units (unk nown) date) unknown) (unknown) (no (unknown) (unknown) Neut % (Auto) Not (units (unknown) date) Reportable unknown) (unknown) (no (unknown) (unknown) Neut % (Auto) (units ( unknown) date) unknown) (unknown) (no (unknown) (unknown) Neutrophils # (units ( unknown) date) (Manual) [id number] H unknown) (unknown) (no (unknown) (unknown) Neutrophils # (units ( unknown) date) (Manual) unknown) (unknown) (no (unknown) (unknown) Objective (units (unkn own) date) unknown) (unknown) (no (unknown) (unknown) Oxygen Delivery (units (unknown) date) Method Room Air unknown) Room Air (unknown) (no (unknown) (unknown) Oxygen Delivery (units (unknown) date) Method Room Air unknown) (unknown) (no (unknown) (unknown) Oxygen Delivery (units (unknown) date) Method unknown) (unknown) (no (unknown) (unknown) PT 18.9 H (units (unkn own) date) unknown) (unknown) (no (unknown) (unknown) PT (units (unkno wn) date) unknown) (unknown) (no (unknown) (unknown) Patient History (units (unknown) date) unknown) (unknown) (no (unknown) (unknown) Patient: (units (unkno wn) date) Pascual Padilla unknown) MR#: (unknown) (no (unknown) (unknown) Penicillins (units (un known) date) Allergy Rash unknown) Verified 01/31/22 19:12 (unknown) (no (unknown) (unknown) Plt Count 156 (units ( unknown) date) unknown) (unknown) (no (unknown) (unknown) Plt Count (units (unkn own) date) unknown) (unknown) (no (unknown) (unknown) Potassium 3.6 (units ( unknown) date) unknown) (unknown) (no (unknown) (unknown) Potassium (units (unkn own) date) unknown) (unknown) (no (unknown) (unknown) Procalcitonin 4.70 (units (unknown) date) H unknown) (unknown) (no (unknown) (unknown) Procalcitonin (units ( unknown) date) unknown) (unknown) (no (unknown) (unknown) Provider: (units (unkn own) date) Modesta Thompson unknown) (unknown) (no (unknown) (unknown) Pulse Oximetry 100 (units (unknown) date) unknown) (unknown) (no (unknown) (unknown) Pulse Oximetry 81 (units (unknown) date) L unknown) (unknown) (no (unknown) (unknown) Pulse Oximetry 84 (units (unknown) date) L unknown) (unknown) (no (unknown) (unknown) Pulse Oximetry 92 (units (unknown) date) 77 L unknown) (unknown) (no (unknown) (unknown) Pulse Oximetry 94 (units (unknown) date) unknown) (unknown) (no (unknown) (unknown) Pulse Oximetry 96 (units (unknown) date) unknown) (unknown) (no (unknown) (unknown) Pulse Oximetry 97 (units (unknown) date) 95 unknown) (unknown) (no (unknown) (unknown) Pulse Oximetry 97 (units (unknown) date) 96 unknown) (unknown) (no (unknown) (unknown) Pulse Oximetry 98 (units (unknown) date) 95 unknown) (unknown) (no (unknown) (unknown) Pulse Oximetry 98 (units (unknown) date) 97 unknown) (unknown) (no (unknown) (unknown) Pulse Oximetry 98 (units (unknown) date) unknown) (unknown) (no (unknown) (unknown) Pulse Oximetry 99 (units (unknown) date) unknown) (unknown) (no (unknown) (unknown) Pulse Oximetry (units (unknown) date) unknown) (unknown) (no (unknown) (unknown) Pulse Rate 117 H (units (unknown) date) 124 H unknown) (unknown) (no (unknown) (unknown) Pulse Rate 118 H (units (unknown) date) 67 unknown) (unknown) (no (unknown) (unknown) Pulse Rate 119 H (units (unknown) date) 120 H unknown) (unknown) (no (unknown) (unknown) Pulse Rate 119 H (units (unknown) date) unknown) (unknown) (no (unknown) (unknown) Pulse Rate 122 H (units (unknown) date) 116 H unknown) (unknown) (no (unknown) (unknown) Pulse Rate 122 H (units (unknown) date) unknown) (unknown) (no (unknown) (unknown) Pulse Rate 124 H (units (unknown) date) 139 H unknown) (unknown) (no (unknown) (unknown) Pulse Rate 128 H (units (unknown) date) unknown) (unknown) (no (unknown) (unknown) Pulse Rate 143 H (units (unknown) date) unknown) (unknown) (no (unknown) (unknown) Pulse Rate 144 H (units (unknown) date) unknown) (unknown) (no (unknown) (unknown) Pulse Rate 150 H (units (unknown) date) 170 H unknown) (unknown) (no (unknown) (unknown) Pulse Rate 156 H (units (unknown) date) unknown) (unknown) (no (unknown) (unknown) Pulse Rate 162 H (units (unknown) date) unknown) (unknown) (no (unknown) (unknown) Pulse Rate (units (unk nown) date) unknown) (unknown) (no (unknown) (unknown) RBC 4.66 (units (unkno wn) date) unknown) (unknown) (no (unknown) (unknown) RBC Morphology See (units (unknown) date) below unknown) (unknown) (no (unknown) (unknown) RBC Morphology (units (unknown) date) unknown) (unknown) (no (unknown) (unknown) RBC (units (unkno wn) date) unknown) (unknown) (no (unknown) (unknown) RDW 14.0 (units (unkno wn) date) unknown) (unknown) (no (unknown) (unknown) RDW (units (unkno wn) date) unknown) (unknown) (no (unknown) (unknown) Respiratory Rate 0 (units (unknown) date) L unknown) (unknown) (no (unknown) (unknown) Respiratory Rate (units (unknown) date) 22 unknown) (unknown) (no (unknown) (unknown) Respiratory Rate (units (unknown) date) 25 H 42 H unknown) (unknown) (no (unknown) (unknown) Respiratory Rate (units (unknown) date) 25 H unknown) (unknown) (no (unknown) (unknown) Respiratory Rate (units (unknown) date) 30 H unknown) (unknown) (no (unknown) (unknown) Respiratory Rate (units (unknown) date) 31 H unknown) (unknown) (no (unknown) (unknown) Respiratory Rate (units (unknown) date) 35 H unknown) (unknown) (no (unknown) (unknown) Respiratory Rate (units (unknown) date) 37 H unknown) (unknown) (no (unknown) (unknown) Respiratory Rate (units (unknown) date) 39 H 41 H unknown) (unknown) (no (unknown) (unknown) Respiratory Rate (units (unknown) date) 40 H unknown) (unknown) (no (unknown) (unknown) Respiratory Rate (units (unknown) date) 43 H unknown) (unknown) (no (unknown) (unknown) Respiratory Rate (units (unknown) date) 48 H 51 H unknown) (unknown) (no (unknown) (unknown) Respiratory Rate (units (unknown) date) unknown) (unknown) (no (unknown) (unknown) Result Diagrams: (units (unknown) date) unknown) (unknown) (no (unknown) (unknown) SARS-CoV-2 (PCR) (units (unknown) date) Negative unknown) (unknown) (no (unknown) (unknown) SARS-CoV-2 (PCR) (units (unknown) date) unknown) (unknown) (no (unknown) (unknown) Safety + (units (unkno wn) date) Behavioral: unknown) (unknown) (no (unknown) (unknown) Seg Neutrophils % (units (unknown) date) 82.0 H unknown) (unknown) (no (unknown) (unknown) Seg Neutrophils % (units (unknown) date) unknown) (unknown) (no (unknown) (unknown) Signed By: (units (unk nown) date) unknown) (unknown) (no (unknown) (unknown) Smoking Status (units (unknown) date) Never smoker unknown) (unknown) (no (unknown) (unknown) Social History: (units (unknown) date) unknown) (unknown) (no (unknown) (unknown) Sodium 135 L (units (u nknown) date) unknown) (unknown) (no (unknown) (unknown) Sodium (units (unkno wn) date) unknown) (unknown) (no (unknown) (unknown) Substance Use Type (units (unknown) date) does not use unknown) (unknown) (no (unknown) (unknown) Temperature 103.5 (units (unknown) date) F H unknown) (unknown) (no (unknown) (unknown) Temperature 103.8 (units (unknown) date) F H unknown) (unknown) (no (unknown) (unknown) Temperature 98.3 F (units (unknown) date) unknown) (unknown) (no (unknown) (unknown) Temperature (units (un known) date) unknown) (unknown) (no (unknown) (unknown) Threatened By a (units (unknown) date) Person unknown) (unknown) (no (unknown) (unknown) Time Patient Seen: (units (unknown) date) 00:12 unknown) (unknown) (no (unknown) (unknown) Time Spent With (units (unknown) date) Patient unknown) (unknown) (no (unknown) (unknown) Tobacco + (units (unkn own) date) Substance use: unknown) (unknown) (no (unknown) (unknown) Total Bilirubin (units (unknown) date) 2.2 H unknown) (unknown) (no (unknown) (unknown) Total Bilirubin (units (unknown) date) unknown) (unknown) (no (unknown) (unknown) Total Counted 100 (units (unknown) date) unknown) (unknown) (no (unknown) (unknown) Total Counted (units ( unknown) date) unknown) (unknown) (no (unknown) (unknown) Total Creatine (units (unknown) date) Kinase 59 unknown) (unknown) (no (unknown) (unknown) Total Creatine (units (unknown) date) Kinase unknown) (unknown) (no (unknown) (unknown) Total Protein 7.6 (units (unknown) date) unknown) (unknown) (no (unknown) (unknown) Total Protein (units ( unknown) date) unknown) (unknown) (no (unknown) (unknown) Troponin I 0.608 (units (unknown) date) H* unknown) (unknown) (no (unknown) (unknown) Troponin I 0.924 (units (unknown) date) H* unknown) (unknown) (no (unknown) (unknown) Troponin I (units (unk nown) date) unknown) (unknown) (no (unknown) (unknown) Type 2 diabetes (units (unknown) date) mellitus unknown) (unknown) (no (unknown) (unknown) Ur Culture (units (unk nown) date) Indicated? Specimen unknown) cultured (unknown) (no (unknown) (unknown) Ur Culture (units (unk nown) date) Indicated? unknown) (unknown) (no (unknown) (unknown) Ur Leukocyte (units (u nknown) date) Esterase 2+ H unknown) (unknown) (no (unknown) (unknown) Ur Leukocyte (units (u nknown) date) Esterase unknown) (unknown) (no (unknown) (unknown) Ur Specific (units (un known) date) [place] 1.010 unknown) (unknown) (no (unknown) (unknown) Ur Specific (units (un known) date) [place] unknown) (unknown) (no (unknown) (unknown) Ur Squamous Epith (units (unknown) date) Cells None seen unknown) (unknown) (no (unknown) (unknown) Ur Squamous Epith (units (unknown) date) Cells unknown) (unknown) (no (unknown) (unknown) Urine Appearance (units (unknown) date) Sl cloudy unknown) (unknown) (no (unknown) (unknown) Urine Appearance (units (unknown) date) unknown) (unknown) (no (unknown) (unknown) Urine Bacteria (units (unknown) date) Many (>30) H unknown) (unknown) (no (unknown) (unknown) Urine Bacteria (units (unknown) date) unknown) (unknown) (no (unknown) (unknown) Urine Bilirubin (units (unknown) date) Negative unknown) (unknown) (no (unknown) (unknown) Urine Bilirubin (units (unknown) date) unknown) (unknown) (no (unknown) (unknown) Urine Color Yellow (units (unknown) date) unknown) (unknown) (no (unknown) (unknown) Urine Color (units (un known) date) unknown) (unknown) (no (unknown) (unknown) Urine Glucose (UA) (units (unknown) date) Negative unknown) (unknown) (no (unknown) (unknown) Urine Glucose (UA) (units (unknown) date) unknown) (unknown) (no (unknown) (unknown) Urine Ketones (units ( unknown) date) Negative unknown) (unknown) (no (unknown) (unknown) Urine Ketones (units ( unknown) date) unknown) (unknown) (no (unknown) (unknown) Urine Nitrate (units ( unknown) date) Negative unknown) (unknown) (no (unknown) (unknown) Urine Nitrate (units ( unknown) date) unknown) (unknown) (no (unknown) (unknown) Urine Occult Blood (units (unknown) date) 1+ H unknown) (unknown) (no (unknown) (unknown) Urine Occult Blood (units (unknown) date) unknown) (unknown) (no (unknown) (unknown) Urine Protein 1+ H (units (unknown) date) unknown) (unknown) (no (unknown) (unknown) Urine Protein (units ( unknown) date) unknown) (unknown) (no (unknown) (unknown) Urine RBC 0-1/hpf (units (unknown) date) unknown) (unknown) (no (unknown) (unknown) Urine RBC (units (unkn own) date) unknown) (unknown) (no (unknown) (unknown) Urine Urobilinogen (units (unknown) date) 0.2 unknown) (unknown) (no (unknown) (unknown) Urine Urobilinogen (units (unknown) date) unknown) (unknown) (no (unknown) (unknown) Urine WBC (units (unkn own) date) 30-100/hpf H unknown) (unknown) (no (unknown) (unknown) Urine WBC (units (unkn own) date) unknown) (unknown) (no (unknown) (unknown) Urine pH 5.0 (units (u nknown) date) unknown) (unknown) (no (unknown) (unknown) Urine pH (units (unkno wn) date) unknown) (unknown) (no (unknown) (unknown) Vital Signs (units (un known) date) unknown) (unknown) (no (unknown) (unknown) WBC 29.1 H (units (unk nown) date) unknown) (unknown) (no (unknown) (unknown) WBC (units (unkno wn) date) unknown) (unknown) (no (unknown) (unknown) [Embedded Image (units (unknown) date) Not Available] unknown) (unknown) (no (unknown) (unknown) alcohol intake (units (unknown) date) current unknown) (unknown) (no (unknown) (unknown) alcohol intake (units (unknown) date) frequency unknown) holiday/special occasion (unknown) (no (unknown) (unknown) amlodipine 10 mg (units (unknown) date) tablet 10 mg PO unknown) DAILY 01/27/18 07/13/19 History (unknown) (no (unknown) (unknown) chlorthalidone 50 (units (unknown) date) mg tablet 50 mg PO unknown) DAILY 01/27/18 07/13/19 History (unknown) (no (unknown) (unknown) exenatide (units (unkn own) date) microspheres 2 unknown) mg/0.85 2 mg SUBCUT QWEEK 07/05/19 07/13/19 History (unknown) (no (unknown) (unknown) fatigue, overall (units (unknown) date) altered mental unknown) status, increasing abdominal pain.??He is unable (unknown) (no (unknown) (unknown) fenofibrate (units (un known) date) nanocrystallized unknown) 145 145 mg PO DAILY 07/05/19 07/13/19 History (unknown) (no (unknown) (unknown) household members (units (unknown) date) spouse unknown) (unknown) (no (unknown) (unknown) hyperlipidemia, (units (unknown) date) prior kidney stones unknown) presents with 12 hours of increasing fevers, (unknown) (no (unknown) (unknown) insulin glargine (units (unknown) date) 100 unit/mL (3 26 unknown) units SUBCUT DAILY 01/27/18 07/13/19 History (unknown) (no (unknown) (unknown) levofloxacin [From (units (unknown) date) Levaquin] Allergy unknown) Rash Verified 01/31/22 19:12 (unknown) (no (unknown) (unknown) losartan 100 mg (units (unknown) date) tablet 100 mg PO unknown) DAILY 01/27/18 07/13/19 History (unknown) (no (unknown) (unknown) mL subcutaneous (units (unknown) date) auto-injector unknown) (unknown) (no (unknown) (unknown) mL) subcutaneous (units (unknown) date) pen unknown) (unknown) (no (unknown) (unknown) metformin 500 mg (units (unknown) date) tablet 500 mg PO unknown) BID 01/27/18 07/13/19 History (unknown) (no (unknown) (unknown) mg tablet (units (unkn own) date) unknown) (unknown) (no (unknown) (unknown) oxycodone 5 mg (units (unknown) date) capsule 5 mg PO Q4H unknown) PRN pain #14 caps 07/13/19 Rx (unknown) (no (unknown) (unknown) rosuvastatin 40 mg (units (unknown) date) tablet 40 mg PO unknown) DAILY 07/05/19 07/13/19 History (unknown) (no (unknown) (unknown) tamsulosin 0.4 mg (units (unknown) date) capsule 0.4 mg PO unknown) DAILY #60 caps 07/13/19 07/13/19 Rx (unknown) (no (unknown) (unknown) to (units (unkno wn) date) unknown) (unknown) (no (unknown) (unknown) today; this time (units (unknown) date) is exclusive of unknown) procedural time. Result panel 27 (unknown) (no (unknown) (unknown) (no value) (units (unk nown) date) unknown) (unknown) (no (unknown) (unknown) ([place] BCise) (units (unknown) date) unknown) (unknown) (no (unknown) (unknown) 01/31/22 01/31/22 (units (unknown) date) 01/31/22 unknown) Range/Units (unknown) (no (unknown) (unknown) 01/31/22 19:24 (units (unknown) date) unknown) (unknown) (no (unknown) (unknown) 01/31/22 20:00 (units (unknown) date) unknown) (unknown) (no (unknown) (unknown) 01/31/22 20:02 (units (unknown) date) unknown) (unknown) (no (unknown) (unknown) 01/31/22 20:03 (units (unknown) date) unknown) (unknown) (no (unknown) (unknown) 01/31/22 20:14 (units (unknown) date) unknown) (unknown) (no (unknown) (unknown) 01/31/22 20:28 (units (unknown) date) unknown) (unknown) (no (unknown) (unknown) 01/31/22 22:13 (units (unknown) date) unknown) (unknown) (no (unknown) (unknown) 01/31/22 22:31 (units (unknown) date) unknown) (unknown) (no (unknown) (unknown) 01/31/22 23:10 (units (unknown) date) unknown) (unknown) (no (unknown) (unknown) 01/31/22 23:30 (units (unknown) date) unknown) (unknown) (no (unknown) (unknown) 01/31/22 23:34 (units (unknown) date) unknown) (unknown) (no (unknown) (unknown) 01/31/22 23:35 (units (unknown) date) unknown) (unknown) (no (unknown) (unknown) 01/31/22 23:45 (units (unknown) date) unknown) (unknown) (no (unknown) (unknown) 01/31/22 (units (unkno wn) date) unknown) (unknown) (no (unknown) (unknown) 02/01/22 05:00 (units (unknown) date) unknown) (unknown) (no (unknown) (unknown) 02/01/22 23:45 (units (unknown) date) unknown) (unknown) (no (unknown) (unknown) 02/02/22 05:00 (units (unknown) date) unknown) (unknown) (no (unknown) (unknown) 02/02/22 23:45 (units (unknown) date) unknown) (unknown) (no (unknown) (unknown) 02/03/22 05:00 (units (unknown) date) unknown) (unknown) (no (unknown) (unknown) 1000pm patient is (units (unknown) date) re-evaluated. He is unknown) having fever and rigors and Tylenol as (unknown) (no (unknown) (unknown) 1015pm patient is (units (unknown) date) having an episode unknown) of emesis. Currently afebrile. Oxygen (unknown) (no (unknown) (unknown) 1055 Acute (units (unk nown) date) deterioration with unknown) severe respiratory strip distress, dropping (unknown) (no (unknown) (unknown) 1105 care is (units (u nknown) date) reviewed with the unknown) chicken boner, Dr. Pierson. With troponin coming (unknown) (no (unknown) (unknown) 1110 care is (units (u nknown) date) reviewed with Dr. azevedo) [place], urology. He will formally consult. (unknown) (no (unknown) (unknown) 1120 patient is (units (unknown) date) taken to the CT unknown) scanner and then will be transferred to the ICU. (unknown) (no (unknown) (unknown) 130 range. Blood (units (unknown) date) pressure was unknown) initially 200/110 and is now down to 125/30 with (unknown) (no (unknown) (unknown) 19:06 01/31/22 (units (unknown) date) unknown) (unknown) (no (unknown) (unknown) 19:19 01/31/22 (units (unknown) date) unknown) (unknown) (no (unknown) (unknown) 19:20 01/31/22 (units (unknown) date) unknown) (unknown) (no (unknown) (unknown) 19:20 (units (unkno wn) date) unknown) (unknown) (no (unknown) (unknown) 19:30 01/31/22 (units (unknown) date) unknown) (unknown) (no (unknown) (unknown) 19:30 (units (unkno wn) date) unknown) (unknown) (no (unknown) (unknown) 20:00 01/31/22 (units (unknown) date) unknown) (unknown) (no (unknown) (unknown) 20:00 20:00 20:00 (units (unknown) date) unknown) (unknown) (no (unknown) (unknown) 20:14 22:13 22:13 (units (unknown) date) unknown) (unknown) (no (unknown) (unknown) 20:30 01/31/22 (units (unknown) date) unknown) (unknown) (no (unknown) (unknown) 20:30 (units (unkno wn) date) unknown) (unknown) (no (unknown) (unknown) 20:45 01/31/22 (units (unknown) date) unknown) (unknown) (no (unknown) (unknown) 21:07 (units (unkno wn) date) unknown) (unknown) (no (unknown) (unknown) 21:11 01/31/22 (units (unknown) date) unknown) (unknown) (no (unknown) (unknown) 21:15 01/31/22 (units (unknown) date) unknown) (unknown) (no (unknown) (unknown) 21:30 01/31/22 (units (unknown) date) unknown) (unknown) (no (unknown) (unknown) 21:30 (units (unkno wn) date) unknown) (unknown) (no (unknown) (unknown) 21:46 01/31/22 (units (unknown) date) unknown) (unknown) (no (unknown) (unknown) 21:46 (units (unkno wn) date) unknown) (unknown) (no (unknown) (unknown) 22:00 01/31/22 (units (unknown) date) unknown) (unknown) (no (unknown) (unknown) 22:05 (units (unkno wn) date) unknown) (unknown) (no (unknown) (unknown) 22:15 01/31/22 (units (unknown) date) unknown) (unknown) (no (unknown) (unknown) 22:15 (units (unkno wn) date) unknown) (unknown) (no (unknown) (unknown) 22:21 01/31/22 (units (unknown) date) unknown) (unknown) (no (unknown) (unknown) 22:21 (units (unkno wn) date) unknown) (unknown) (no (unknown) (unknown) 22:30 01/31/22 (units (unknown) date) unknown) (unknown) (no (unknown) (unknown) 22:30 (units (unkno wn) date) unknown) (unknown) (no (unknown) (unknown) 22:40 01/31/22 (units (unknown) date) unknown) (unknown) (no (unknown) (unknown) 22:45 01/31/22 (units (unknown) date) unknown) (unknown) (no (unknown) (unknown) 22:45 (units (unkno wn) date) unknown) (unknown) (no (unknown) (unknown) 22:49 01/31/22 (units (unknown) date) unknown) (unknown) (no (unknown) (unknown) 22:50 (units (unkno wn) date) unknown) (unknown) (no (unknown) (unknown) 22:52 01/31/22 (units (unknown) date) unknown) (unknown) (no (unknown) (unknown) 22:55 01/31/22 (units (unknown) date) unknown) (unknown) (no (unknown) (unknown) 23:00 01/31/22 (units (unknown) date) unknown) (unknown) (no (unknown) (unknown) 23:00 (units (unkno wn) date) unknown) (unknown) (no (unknown) (unknown) 23:06 01/31/22 (units (unknown) date) unknown) (unknown) (no (unknown) (unknown) 23:10 01/31/22 (units (unknown) date) unknown) (unknown) (no (unknown) (unknown) 23:10 (units (unkno wn) date) unknown) (unknown) (no (unknown) (unknown) 23:15 (units (unkno wn) date) unknown) (unknown) (no (unknown) (unknown) 30 particular was (units (unknown) date) initiated. He is unknown) allergic to penicillin so rather than Zosyn (unknown) (no (unknown) (unknown) 71-year-old (units (un known) date) gentleman presents unknown) acutely ill, febrile pale with severe abdominal (unknown) (no (unknown) (unknown) 71-year-old (units (un known) date) gentleman with unknown) history of hypertension, type 2 diabetes, (unknown) (no (unknown) (unknown) ? 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 (unknown) (no (unknown) (unknown) ABDOMEN: (units (unkno wn) date) unknown) (unknown) (no (unknown) (unknown) ALT (<50) IU/L (units (unknown) date) unknown) (unknown) (no (unknown) (unknown) ALT 16 (<50) IU/L (units (unknown) date) unknown) (unknown) (no (unknown) (unknown) APTT (26-36) (units (u nknown) date) SECONDS unknown) (unknown) (no (unknown) (unknown) APTT 31 (26-36) (units (unknown) date) SECONDS unknown) (unknown) (no (unknown) (unknown) AST (17-59) IU/L (units (unknown) date) unknown) (unknown) (no (unknown) (unknown) AST 31 (17-59) (units (unknown) date) IU/L unknown) (unknown) (no (unknown) (unknown) Abdomen: Mild (units ( unknown) date) distention, diffuse unknown) abdominal pain without rebound or guarding, (unknown) (no (unknown) (unknown) Abdomen:? (units (unkn own) date) Visualized upper unknown) abdominal solid organs appear normal in the early (unknown) (no (unknown) (unknown) Abdominal Nodes:? (units (unknown) date) No retroperitoneal unknown) or mesenteric adenopathy by size criteria.? (unknown) (no (unknown) (unknown) Acetaminophen (units ( unknown) date) (Acetaminophen 325 unknown) Mg Tablet) 975 mg PO NOW ONE (unknown) (no (unknown) (unknown) Acute kidney (units (u nknown) date) injury with unknown) creatinine increased from 1.3-1.6. Likely compounded (unknown) (no (unknown) (unknown) Additional (units (unk nown) date) Information: unknown) (unknown) (no (unknown) (unknown) Admin: 01/31/22 (units (unknown) date) 20:13 Dose: 200 unknown) mls/hr (unknown) (no (unknown) (unknown) Admit Date/Time: (units (unknown) date) 01/31/22 23:35 unknown) (unknown) (no (unknown) (unknown) Admit Provider: (units (unknown) date) Modesta Thompson unknown) (unknown) (no (unknown) (unknown) Adrenal Glands:? (units (unknown) date) Unremarkable.? ? unknown) (unknown) (no (unknown) (unknown) Age/Sex: 71 / M (units (unknown) date) unknown) (unknown) (no (unknown) (unknown) Albumin (3.5-5.0) (units (unknown) date) g/dL unknown) (unknown) (no (unknown) (unknown) Albumin 4.2 (units (un known) date) (3.5-5.0) g/dL unknown) (unknown) (no (unknown) (unknown) Albumin/Globulin (units (unknown) date) Ratio (1.0-2.8) unknown) (unknown) (no (unknown) (unknown) Albumin/Globulin (units (unknown) date) Ratio 1.2 (1.0-2.8) unknown) (unknown) (no (unknown) (unknown) Alkaline (units (unkno wn) date) Phosphatase unknown) (38-126) U/L (unknown) (no (unknown) (unknown) Alkaline (units (unkno wn) date) Phosphatase 66 unknown) (38-126) U/L (unknown) (no (unknown) (unknown) Allergies (units (unkn own) date) unknown) (unknown) (no (unknown) (unknown) Allergy/AdvReac (units (unknown) date) Type Severity unknown) Reaction Status Date / Time (unknown) (no (unknown) (unknown) Amiodarone HCl (units (unknown) date) (Amiodarone 150 unknown) Mg/3 Ml Vial) 300 mg IV NOW ONE (unknown) (no (unknown) (unknown) Amiodarone (units (unk nown) date) HCl/Dextrose unknown) (Nexterone) 360 mg in 200 mls @ 33.333 mls/hr IV NOW (unknown) (no (unknown) (unknown) Anisocytosis 1+ H (units (unknown) date) unknown) (unknown) (no (unknown) (unknown) Anisocytosis (units (u nknown) date) unknown) (unknown) (no (unknown) (unknown) Arterial Blood Gas (units (unknown) date) Daily unknown) (unknown) (no (unknown) (unknown) Attestation: (units (u nknown) date) unknown) (unknown) (no (unknown) (unknown) 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, unknown) Ramírez catheter now in place (unknown) (no (unknown) (unknown) BUN (9-20) mg/dL (units (unknown) date) unknown) (unknown) (no (unknown) (unknown) BUN 22 H (9-20) (units (unknown) date) mg/dL unknown) (unknown) (no (unknown) (unknown) BUN/Creatinine (units (unknown) date) Ratio (6-22) unknown) (unknown) (no (unknown) (unknown) BUN/Creatinine (units (unknown) date) Ratio 13.8 (6-22) unknown) (unknown) (no (unknown) (unknown) Band Neutrophils % (units (unknown) date) (3-7) % unknown) (unknown) (no (unknown) (unknown) Band Neutrophils % (units (unknown) date) 12.0 H (3-7) % unknown) (unknown) (no (unknown) (unknown) Baso # (Auto) Not (units (unknown) date) Reportable unknown) (unknown) (no (unknown) (unknown) Baso # (Auto) (units ( unknown) date) unknown) (unknown) (no (unknown) (unknown) Baso % (Auto) Not (units (unknown) date) Reportable unknown) (unknown) (no (unknown) (unknown) Baso % (Auto) (units ( unknown) date) unknown) (unknown) (no (unknown) (unknown) Bedside Urine (units ( unknown) date) Bilirubin - unknown) Negative (unknown) (no (unknown) (unknown) Bedside Urine (units ( unknown) date) Glucose Negative unknown) (unknown) (no (unknown) (unknown) Bedside Urine (units ( unknown) date) Ketone - Negative unknown) (unknown) (no (unknown) (unknown) Bedside Urine (units ( unknown) date) Leukocytes + 70 unknown) (unknown) (no (unknown) (unknown) Bedside Urine (units ( unknown) date) Nitrite - Negative unknown) (unknown) (no (unknown) (unknown) Bedside Urine (units ( unknown) date) Occult Blood +/ unknown) (unknown) (no (unknown) (unknown) Bedside Urine (units ( unknown) date) Protein + 30 unknown) (unknown) (no (unknown) (unknown) Bedside Urine (units ( unknown) date) Urobilinogen - unknown) Negative (unknown) (no (unknown) (unknown) Bedside Urine pH 6 (units (unknown) date) unknown) (unknown) (no (unknown) (unknown) Biliary ducts:? (units (unknown) date) Unremarkable.? ? unknown) (unknown) (no (unknown) (unknown) Bladder:? (units (unkn own) date) Unremarkable.? ? unknown) (unknown) (no (unknown) (unknown) Blood Culture Stat (units (unknown) date) unknown) (unknown) (no (unknown) (unknown) Blood Pressure (units (unknown) date) 115/69 120/75 unknown) 128/77 (unknown) (no (unknown) (unknown) Blood Pressure (units (unknown) date) 127/80 unknown) (unknown) (no (unknown) (unknown) Blood Pressure (units (unknown) date) 128/76 160/104 H unknown) (unknown) (no (unknown) (unknown) Blood Pressure (units (unknown) date) 132/79 unknown) (unknown) (no (unknown) (unknown) Blood Pressure (units (unknown) date) 134/75 10 unknown) 19:06 (unknown) (no (unknown) (unknown) Blood Pressure (units (unknown) date) 134/75 139/80 unknown) (unknown) (no (unknown) (unknown) Blood Pressure (units (unknown) date) 136/78 unknown) (unknown) (no (unknown) (unknown) Blood Pressure (units (unknown) date) 137/76 unknown) (unknown) (no (unknown) (unknown) Blood Pressure (units (unknown) date) 138/78 146/84 H unknown) (unknown) (no (unknown) (unknown) Blood Pressure (units (unknown) date) 147/79 H unknown) (unknown) (no (unknown) (unknown) Blood Pressure (units (unknown) date) 150/100 H unknown) (unknown) (no (unknown) (unknown) Blood Pressure (units (unknown) date) 153/77 H 128/76 unknown) (unknown) (no (unknown) (unknown) Blood Pressure (units (unknown) date) 153/93 H 113/68 unknown) (unknown) (no (unknown) (unknown) Blood Pressure (units (unknown) date) 159/99 H 139/80 unknown) (unknown) (no (unknown) (unknown) Blood Pressure (units (unknown) date) 174/114 H unknown) (unknown) (no (unknown) (unknown) Blood Pressure (units (unknown) date) 206/130 H 170/100 H unknown) (unknown) (no (unknown) (unknown) Bones and chest (units (unknown) date) wall:? No unknown) suspicious bony abnormalities.? Soft tissues appear (unknown) (no (unknown) (unknown) Bones and chest (units (unknown) date) wall:? No unknown) suspicious bony lesions.? Ribs and thoracic spine (unknown) (no (unknown) (unknown) Bones:? (units (unkno wn) date) Unremarkable.? ? unknown) (unknown) (no (unknown) (unknown) CK-MB (CK-2) Rel (units (unknown) date) Index TNP unknown) (unknown) (no (unknown) (unknown) CK-MB (CK-2) Rel (units (unknown) date) Index unknown) (unknown) (no (unknown) (unknown) CK-MB (CK-2) TNP (units (unknown) date) unknown) (unknown) (no (unknown) (unknown) CK-MB (CK-2) (units (u nknown) date) unknown) (unknown) (no (unknown) (unknown) COVID19 -Nasal (units (unknown) date) RAPID/Pre-Proc Stat unknown) (unknown) (no (unknown) (unknown) CT abdomen pelvis (units (unknown) date) w con Stat unknown) (unknown) (no (unknown) (unknown) CT angio chest PE (units (unknown) date) protocol Stat unknown) (unknown) (no (unknown) (unknown) CT scan - (units (unkn own) date) abdomen/pelvis: unknown) (unknown) (no (unknown) (unknown) CT scan does not (units (unknown) date) suggest acute unknown) abscess, diverticulitis or appendicitis. Some (unknown) (no (unknown) (unknown) CTA PE study: (units ( unknown) date) unknown) (unknown) (no (unknown) (unknown) Calcium (8.4-10.2) (units (unknown) date) mg/dL unknown) (unknown) (no (unknown) (unknown) Calcium 8.1 L (units ( unknown) date) (8.4-10.2) mg/dL unknown) (unknown) (no (unknown) (unknown) Carbon Dioxide (units (unknown) date) (22-32) mmol/L unknown) (unknown) (no (unknown) (unknown) Carbon Dioxide 23 (units (unknown) date) (22-32) mmol/L unknown) (unknown) (no (unknown) (unknown) Cardiac: (units (unkno wn) date) Tachycardic without unknown) murmurs (unknown) (no (unknown) (unknown) Care is reviewed (units (unknown) date) with Melita Thompson, unknown) [facility] provider. She accepts (unknown) (no (unknown) (unknown) Ceftriaxone Sodium (units (unknown) date) 1,000 mg/ (Sodium unknown) Chloride) 100 mls @ 200 mls/hr IV DAILY (unknown) (no (unknown) (unknown) Ceftriaxone Sodium (units (unknown) date) 2,000 mg/ (Sodium unknown) Chloride) 100 mls @ 200 mls/hr IV NOW ONE (unknown) (no (unknown) (unknown) Chest [XR chest (units (unknown) date) 1V] Stat unknown) (unknown) (no (unknown) (unknown) Chest x-ray: (units (u nknown) date) unknown) (unknown) (no (unknown) (unknown) Chief complaint: (units (unknown) date) Abdominal Pain unknown) (unknown) (no (unknown) (unknown) Chloride (98-107) (units (unknown) date) mmol/L unknown) (unknown) (no (unknown) (unknown) Chloride 96 L (units ( unknown) date) (98-107) mmol/L unknown) (unknown) (no (unknown) (unknown) Clinical (units (o wn) date) Impression: unknown) (unknown) (no (unknown) (unknown) Clinical (units (o wn) date) presentation is unknown) much more consistent with flash pulmonary edema rather (unknown) (no (unknown) (unknown) Clinical reason (units (unknown) date) for NOT initiating unknown) fluid bolus: (unknown) (no (unknown) (unknown) Complete Blood (units (unknown) date) Count AUTO DIFF unknown) DAILY (unknown) (no (unknown) (unknown) Complete Blood (units (unknown) date) Count AUTO DIFF unknown) Stat (unknown) (no (unknown) (unknown) Comprehensive (units ( unknown) date) Metabolic Panel unknown) DAILY (unknown) (no (unknown) (unknown) Comprehensive (units ( unknown) date) Metabolic Panel unknown) Stat (unknown) (no (unknown) (unknown) Consult to (units (unn) date) Physician Stat unknown) (unknown) (no (unknown) (unknown) Consult to (units (unk n) date) Tele-chicken boner unknown) Routine (unknown) (no (unknown) (unknown) Course (units (o wn) date) unknown) (unknown) (no (unknown) (unknown) Creatinine (units (unk ) ) (0.66-1.25) mg/dL unknown) (unknown) (no (unknown) (unknown) Creatinine 1.60 H (units (unknown) date) (0.66-1.25) mg/dL unknown) (unknown) (no (unknown) (unknown) Critical Care Time (units (unknown) date) unknown) (unknown) (no (unknown) (unknown) Critical Care (units ( unknown) date) Time: Yes unknown) (unknown) (no (unknown) (unknown) Critical care time (units (unknown) date) is separate from unknown) other billable procedures. There is a high (unknown) (no (unknown) (unknown) Currently at a (units (unknown) date) rate of a 130. Post unknown) intubation and central line chest x-ray (unknown) (no (unknown) (unknown) D Dimer Stat (units (u nknown) date) unknown) (unknown) (no (unknown) (unknown) D-Dimer (<500) (units (unknown) date) ng/ml unknown) (unknown) (no (unknown) (unknown) D-Dimer 821 H (units ( unknown) date) (<500) ng/ml unknown) (unknown) (no (unknown) (unknown) : 1950 (units (unknown) date) Acct:[id number] unknown) (unknown) (no (unknown) (unknown) Date of Service: (units (unknown) date) 01/31/22 unknown) (unknown) (no (unknown) (unknown) Departure (units (unkn own) date) unknown) (unknown) (no (unknown) (unknown) Dextrose (Dextrose (units (unknown) date) 50 % In Water 25 unknown) Gm/50 Ml Syringe) 25 gm IV PRN PRN (unknown) (no (unknown) (unknown) Dictated by: Dwayne (units (unknown) date) Jody Meadows on unknown) 01/31/2022 at 20:08 ? ? (unknown) (no (unknown) (unknown) Dictated by: Dwayne (units (unknown) date) Jody Meadows on unknown) 01/31/2022 at 21:21 ? ? (unknown) (no (unknown) (unknown) Dictated by: Dwayne (units (unknown) date) Jody Meadows on unknown) 02/01/2022 at 0:04 ? ? (unknown) (no (unknown) (unknown) Discharge Plan (units (unknown) date) unknown) (unknown) (no (unknown) (unknown) Discontinued (units (u nknown) date) Medications unknown) (unknown) (no (unknown) (unknown) Documented By: NR (units (unknown) date) unknown) (unknown) (no (unknown) (unknown) ECG Data (units (unkno wn) date) unknown) (unknown) (no (unknown) (unknown) ED Orders (units (unkn own) date) unknown) (unknown) (no (unknown) (unknown) EKG-12 Lead Stat (units (unknown) date) unknown) (unknown) (no (unknown) (unknown) ER Physician: (units ( unknown) date) Kyleigh Castellanos MD unknown) (unknown) (no (unknown) (unknown) Emergency Report (units (unknown) date) unknown) (unknown) (no (unknown) (unknown) Eos % (Auto) Not (units (unknown) date) Reportable unknown) (unknown) (no (unknown) (unknown) Eos % (Auto) (units (u nknown) date) unknown) (unknown) (no (unknown) (unknown) Esophagus is (units (u nknown) date) unknown) (unknown) (no (unknown) (unknown) Esterase (units (unkno wn) date) unknown) (unknown) (no (unknown) (unknown) Estimated GFR (units ( unknown) date) (>60) mL/min unknown) (unknown) (no (unknown) (unknown) Estimated GFR 45 L (units (unknown) date) (>60) mL/min unknown) (unknown) (no (unknown) (unknown) Exam (units (unkno wn) date) unknown) (unknown) (no (unknown) (unknown) Extremities: No (units (unknown) date) trauma, well unknown) perfused (unknown) (no (unknown) (unknown) FINDINGS:? (units (unk nown) date) unknown) (unknown) (no (unknown) (unknown) Fentanyl (Fentanyl (units (unknown) date) 100 Mcg/2 Ml Inj) unknown) 200 mcg IV NOW ONE (unknown) (no (unknown) (unknown) Fentanyl 1,000 (units (unknown) date) mcg/ Dextrose 250 unknown) mls @ 16.114 mls/hr IV TITRATE ANGI; Protocol (unknown) (no (unknown) (unknown) Full and (units (unkno wn) date) symmetrical air unknown) movement, no respiratory distress appreciated (unknown) (no (unknown) (unknown) Gallbladder:? (units ( unknown) date) Unremarkable.? ? unknown) (unknown) (no (unknown) (unknown) General (units (unkno wn) date) unknown) (unknown) (no (unknown) (unknown) General: Acutely (units (unknown) date) ill-appearing, unknown) pale, significantly fatigued but will respond (unknown) (no (unknown) (unknown) Globulin (1.7-4.1) (units (unknown) date) g/dL unknown) (unknown) (no (unknown) (unknown) Globulin 3.4 (units (u nknown) date) (1.7-4.1) g/dL unknown) (unknown) (no (unknown) (unknown) Glucose (80-110) (units (unknown) date) mg/dL unknown) (unknown) (no (unknown) (unknown) Glucose 262 H (units ( unknown) date) (80-110) mg/dL unknown) (unknown) (no (unknown) (unknown) Goal directed (units ( unknown) date) therapy within 3 unknown) hours of septic shock or initial hypotension (unknown) (no (unknown) (unknown) Goal directed (units ( unknown) date) treatment unknown) (unknown) (no (unknown) (unknown) HEENT: Moist (units (u nknown) date) mucous membranes, unknown) normal sclera with reactive pupils, (unknown) (no (unknown) (unknown) HPI - General (units ( unknown) date) Adult unknown) (unknown) (no (unknown) (unknown) HPI narrative: (units (unknown) date) unknown) (unknown) (no (unknown) (unknown) Hct (41-53) % (units ( unknown) date) unknown) (unknown) (no (unknown) (unknown) Hct 38.2 L (41-53) (units (unknown) date) % unknown) (unknown) (no (unknown) (unknown) He has a history (units (unknown) date) of kidney stones unknown) and 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 No (units (unk nown) date) significant unknown) findings. (unknown) (no (unknown) (unknown) Hemoglobin A1C% w (units (unknown) date) Est Avg Glu Stat unknown) (unknown) (no (unknown) (unknown) Hgb (13.5-17.5) (units (unknown) date) g/dL unknown) (unknown) (no (unknown) (unknown) Hgb 13.3 L (units (unk nown) date) (13.5-17.5) g/dL unknown) (unknown) (no (unknown) (unknown) History of Present (units (unknown) date) Illness unknown) (unknown) (no (unknown) (unknown) History of kidney (units (unknown) date) stones unknown) (unknown) (no (unknown) (unknown) Home Medications (units (unknown) date) unknown) (unknown) (no (unknown) (unknown) Hyperlipidemia (units (unknown) date) unknown) (unknown) (no (unknown) (unknown) Hypertension (units (u nknown) date) unknown) (unknown) (no (unknown) (unknown) IMPRESSION:? No (units (unknown) date) abscess found, no unknown) evidence of colitis or diverticulitis, or (unknown) (no (unknown) (unknown) IMPRESSION:? No (units (unknown) date) pulmonary embolus unknown) found.? Dense alveolar consolidation within (unknown) (no (unknown) (unknown) IMPRESSION:? (units (u nknown) date) Reduced inspiratory unknown) volume, no acute disease when this factor is (unknown) (no (unknown) (unknown) INR (0.9-1.3) (units ( unknown) date) unknown) (unknown) (no (unknown) (unknown) INR 1.6 H (units (unkn own) date) (0.9-1.3) unknown) (unknown) (no (unknown) (unknown) Image quality:? (units (unknown) date) Excellent.? unknown) (unknown) (no (unknown) (unknown) Imaging Data (units (u nknown) date) unknown) (unknown) (no (unknown) (unknown) Initial Vital (units ( unknown) date) Signs unknown) (unknown) (no (unknown) (unknown) Initial Vital (units ( unknown) date) Signs: unknown) (unknown) (no (unknown) (unknown) Initial chest x-ray (units (unknown) date) does not suggest unknown) significant infiltrates or congestive heart (unknown) (no (unknown) (unknown) Initial (units (unkno wn) date) presumption was unknown) sepsis or developing sepsis. Fluid resuscitation with (unknown) (no (unknown) (unknown) Insulin Glargine (units (unknown) date) (Insulin Glargine unknown) 100 Unit/Ml 3ml Pen) 26 unit SUBCUT DAILY (unknown) (no (unknown) (unknown) Insulin Human (units ( unknown) date) Lispro (Insulin unknown) Lispro 100 Unit/Ml 3ml Vial) 0 unit SUBCUT ACHS (unknown) (no (unknown) (unknown) Insulin Human (units ( unknown) date) Lispro (Insulin unknown) Lispro 100 Unit/Ml 3ml Vial) 0 unit SUBCUT Q6H (unknown) (no (unknown) (unknown) Interpretation: (units (unknown) date) unknown) (unknown) (no (unknown) (unknown) [facility] (units (unknown) date) [address] unknown) [place] [address] (unknown) (no (unknown) (unknown) Kidney stones (units ( unknown) date) unknown) (unknown) (no (unknown) (unknown) Kidneys and (units (un known) date) Ureters:? 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 (unknown) (no (unknown) (unknown) Lab Data (units (unkno wn) date) unknown) (unknown) (no (unknown) (unknown) Lab Results (units (un known) date) unknown) (unknown) (no (unknown) (unknown) Labs: (units (unkno wn) date) unknown) (unknown) (no (unknown) (unknown) Lactate (0.7-2.1) (units (unknown) date) mmol/L unknown) (unknown) (no (unknown) (unknown) Lactate (Lactic (units (unknown) date) Acid) Stat unknown) (unknown) (no (unknown) (unknown) Lactate 3.0 H (units ( unknown) date) (0.7-2.1) mmol/L unknown) (unknown) (no (unknown) (unknown) Lactic elevated at (units (unknown) date) 3.0, significantly unknown) elevated procalcitonin, urine certainly (unknown) (no (unknown) (unknown) Last Admin: (units (un known) date) 01/31/22 20:17 unknown) Dose: 100 mls/hr (unknown) (no (unknown) (unknown) Last Admin: (units (un known) date) 01/31/22 20:17 unknown) Dose: 920.79 mls/hr (unknown) (no (unknown) (unknown) Last Admin: (units (un known) date) 01/31/22 22:05 unknown) Dose: 975 mg (unknown) (no (unknown) (unknown) Last Admin: (units (un known) date) 01/31/22 22:18 unknown) Dose: 10 mg (unknown) (no (unknown) (unknown) Last Admin: (units (un known) date) 01/31/22 23:15 unknown) Dose: 200 mcg (unknown) (no (unknown) (unknown) Last Admin: (units (un known) date) 01/31/22 23:50 unknown) Dose: 200 mcg (unknown) (no (unknown) (unknown) Last Admin: (units (un known) date) 02/01/22 00:00 unknown) Dose: 0.7 mcg/kg/hr, 16.114 mls/hr (unknown) (no (unknown) (unknown) Last Infusion: (units (unknown) date) 01/31/22 21:10 unknown) Dose: 0 mls/hr (unknown) (no (unknown) (unknown) Last Titration: (units (unknown) date) 01/31/22 23:10 unknown) Dose: 25 mcg/kg/min, 13.812 mls/hr (unknown) (no (unknown) (unknown) Left axis (units (unkn own) date) deviation unknown) (unknown) (no (unknown) (unknown) Liver:? (units (unkno wn) date) Unremarkable.? ? unknown) (unknown) (no (unknown) (unknown) Lung bases:? (units (u nknown) date) Unremarkable. unknown) (unknown) (no (unknown) (unknown) Lungs and pleura:? (units (unknown) date) Lungs are abnormal unknown) with bilateral dense pneumonia or (unknown) (no (unknown) (unknown) Lungs and pleura:? (units (unknown) date) Lungs are clear.? unknown) No pleural effusions or pneumothorax.? (unknown) (no (unknown) (unknown) Lymph # (Auto) Not (units (unknown) date) Reportable unknown) (unknown) (no (unknown) (unknown) Lymph # (Auto) (units (unknown) date) unknown) (unknown) (no (unknown) (unknown) Lymph % (Auto) Not (units (unknown) date) Reportable unknown) (unknown) (no (unknown) (unknown) Lymph % (Auto) (units (unknown) date) unknown) (unknown) (no (unknown) (unknown) Lymphocytes % (units ( unknown) date) (Manual) (25-45) % unknown) (unknown) (no (unknown) (unknown) Lymphocytes % (units ( unknown) date) (Manual) 5.0 L unknown) (25-45) % (unknown) (no (unknown) (unknown) [id number] (units (unk nown) date) unknown) (unknown) (no (unknown) (unknown) MCH (26-34) PG (units (unknown) date) unknown) (unknown) (no (unknown) (unknown) MCH 28.5 (26-34) (units (unknown) date) PG unknown) (unknown) (no (unknown) (unknown) MCHC (30-36) % (units (unknown) date) unknown) (unknown) (no (unknown) (unknown) MCHC 34.8 (30-36) (units (unknown) date) % unknown) (unknown) (no (unknown) (unknown) MCV (80-100) fL (units (unknown) date) unknown) (unknown) (no (unknown) (unknown) MCV 81.8 (80-100) (units (unknown) date) fL unknown) (unknown) (no (unknown) (unknown) MDM Narrative (units ( unknown) date) unknown) (unknown) (no (unknown) (unknown) Magnesium DAILY (units (unknown) date) unknown) (unknown) (no (unknown) (unknown) June of 2019. His (units (unknown) date) daughter indicates unknown) that he was scheduled to have a out (unknown) (no (unknown) (unknown) Measure peak (units (u nknown) date) expiratory flow unknown) ONCE (unknown) (no (unknown) (unknown) Mediastinum:? (units ( unknown) date) Heart size is unknown) normal, without pericardial effusion.? No (unknown) (no (unknown) (unknown) Mediastinum:? (units ( unknown) date) Mediastinal unknown) contours are normal.? Heart size is normal.? (unknown) (no (unknown) (unknown) Medical Decision (units (unknown) date) Making unknown) (unknown) (no (unknown) (unknown) Medical History (units (unknown) date) (Updated 01/31/22 @ unknown) 23:30 by Kyleigh Castellanos MD) (unknown) (no (unknown) (unknown) Medical decision (units (unknown) date) making narrative: unknown) (unknown) (no (unknown) (unknown) Medication (units (unk nown) date) Instructions unknown) Recorded Confirmed (unknown) (no (unknown) (unknown) Medication (units (unk nown) date) Instructions unknown) Recorded (unknown) (no (unknown) (unknown) Metoclopramide HCl (units (unknown) date) (Metoclopramide 10 unknown) Mg/2 Ml Inj) 10 mg IV NOW ONE (unknown) (no (unknown) (unknown) Metronidazole (units ( unknown) date) (Flagyl) 500 mg in unknown) 100 mls @ 100 mls/hr IV NOW ONE (unknown) (no (unknown) (unknown) Metronidazole (units ( unknown) date) (Flagyl) 500 mg in unknown) 100 mls @ 100 mls/hr IV Q6H ANGI (unknown) (no (unknown) (unknown) Miscellaneous: No (units (unknown) date) hernias are seen. ? unknown) ? (unknown) (no (unknown) (unknown) [place] # (Auto) Not (units (unknown) date) Reportable unknown) (unknown) (no (unknown) (unknown) [place] # (Auto) (units ( unknown) date) unknown) (unknown) (no (unknown) (unknown) [place] % (Auto) Not (units (unknown) date) Reportable unknown) (unknown) (no (unknown) (unknown) [place] % (Auto) (units ( unknown) date) unknown) (unknown) (no (unknown) (unknown) Monocytes % (units (un known) date) (Manual) (2-11) % unknown) (unknown) (no (unknown) (unknown) Monocytes % (units (un known) date) (Manual) 1.0 L unknown) (2-11) % (unknown) (no (unknown) (unknown) Must include vital (units (unknown) date) signs, unknown) cardiopulmonary exam, capillary refill, (unknown) (no (unknown) (unknown) My Impression: (units (unknown) date) unknown) (unknown) (no (unknown) (unknown) Narrative: (units (unk nown) date) unknown) (unknown) (no (unknown) (unknown) Neck: No JVD, (units ( unknown) date) supple unknown) (unknown) (no (unknown) (unknown) Neurologic: (units (un known) date) Globally weak but unknown) Grossly neurologically intact with no obvious (unknown) (no (unknown) (unknown) Neut % (Auto) Not (units (unknown) date) Reportable unknown) (unknown) (no (unknown) (unknown) Neut % (Auto) (units ( unknown) date) unknown) (unknown) (no (unknown) (unknown) Neutrophils # (units ( unknown) date) (Manual) unknown) ([phone]) /uL (unknown) (no (unknown) (unknown) Neutrophils # (units ( unknown) date) (Manual) [id number] H unknown) ([phone]) /uL (unknown) (no (unknown) (unknown) ONE; Protocol (units ( unknown) date) unknown) (unknown) (no (unknown) (unknown) Ordered: (units (unkno wn) date) unknown) (unknown) (no (unknown) (unknown) Orders (units (unkno wn) date) unknown) (unknown) (no (unknown) (unknown) Oxygen Delivery (units (unknown) date) Method 01/31/22 unknown) 19:06 (unknown) (no (unknown) (unknown) Oxygen Delivery (units (unknown) date) Method Room Air unknown) Room Air (unknown) (no (unknown) (unknown) Oxygen Delivery (units (unknown) date) Method unknown) (unknown) (no (unknown) (unknown) PELVIS: (units (unkno wn) date) unknown) (unknown) (no (unknown) (unknown) PRN Reason: (units (un known) date) Hypoglycemia unknown) (unknown) (no (unknown) (unknown) PT (10.1-12.7) (units (unknown) date) SECONDS unknown) (unknown) (no (unknown) (unknown) PT 18.9 H (units (unkn own) date) (10.1-12.7) SECONDS unknown) (unknown) (no (unknown) (unknown) Pancreas:? (units (unk nown) date) Unremarkable.? ? unknown) (unknown) (no (unknown) (unknown) Pantoprazole (units (u nknown) date) Sodium unknown) (Pantoprazole 40 Mg Vial) 40 mg IV DAILY ANGI (unknown) (no (unknown) (unknown) Partial (units (unkno wn) date) Thromboplastin Time unknown) Stat (unknown) (no (unknown) (unknown) Patient (units (unkno wn) date) Disposition: unknown) Admitted As Inpatient (unknown) (no (unknown) (unknown) Patient History (units (unknown) date) unknown) (unknown) (no (unknown) (unknown) Patient: (units (unkno wn) date) Pascual Padilla unknown) MR#: (unknown) (no (unknown) (unknown) Pelvic Nodes: No (units (unknown) date) enlarged lymph unknown) nodes.? (unknown) (no (unknown) (unknown) Pelvic Organs:? (units (unknown) date) Unremarkable.? ? unknown) (unknown) (no (unknown) (unknown) Penicillins (units (un known) date) Allergy Rash unknown) Verified 01/31/22 19:12 (unknown) (no (unknown) (unknown) Peritoneum:? No (units (unknown) date) abnormal unknown) intraperitoneal fluid.? No free air.? (unknown) (no (unknown) (unknown) Pigtail catheter (units (unknown) date) in place in the unknown) right ureter that looks like it was placed in (unknown) (no (unknown) (unknown) Plt Count (units (unkn own) date) (150-400) X103/uL unknown) (unknown) (no (unknown) (unknown) Plt Count 156 (units ( unknown) date) (150-400) X103/uL unknown) (unknown) (no (unknown) (unknown) Point of care (units ( unknown) date) testing: unknown) (unknown) (no (unknown) (unknown) Potassium (units (unkn own) date) (3.4-5.1) mmol/L unknown) (unknown) (no (unknown) (unknown) Potassium 3.6 (units ( unknown) date) (3.4-5.1) mmol/L unknown) (unknown) (no (unknown) (unknown) Previous Rx's (units ( unknown) date) unknown) (unknown) (no (unknown) (unknown) Procalcitonin (units ( unknown) date) (<0.5) ng/mL unknown) (unknown) (no (unknown) (unknown) Procalcitonin 4.70 (units (unknown) date) H (<0.5) ng/mL unknown) (unknown) (no (unknown) (unknown) Procalcitonin Stat (units (unknown) date) unknown) (unknown) (no (unknown) (unknown) Propofol (units (unkno wn) date) (Propofol) 1,000 mg unknown) in 100 mls @ 2.762 mls/hr IV TITRATE ANGI; Protocol (unknown) (no (unknown) (unknown) Prothrombin Time (units (unknown) date) INR DAILY unknown) (unknown) (no (unknown) (unknown) Prothrombin Time (units (unknown) date) INR Stat unknown) (unknown) (no (unknown) (unknown) Psych: (units (unkno wn) date) Cooperative, unknown) significant fatigue (unknown) (no (unknown) (unknown) Pulmonary (units (unkn own) date) arteries:? unknown) Pulmonary arteries are normal in size, and demonstrate no (unknown) (no (unknown) (unknown) Pulse Oximetry 100 (units (unknown) date) unknown) (unknown) (no (unknown) (unknown) Pulse Oximetry 81 (units (unknown) date) L unknown) (unknown) (no (unknown) (unknown) Pulse Oximetry 84 (units (unknown) date) L unknown) (unknown) (no (unknown) (unknown) Pulse Oximetry 92 (units (unknown) date) 77 L unknown) (unknown) (no (unknown) (unknown) Pulse Oximetry 94 (units (unknown) date) unknown) (unknown) (no (unknown) (unknown) Pulse Oximetry 96 (units (unknown) date) unknown) (unknown) (no (unknown) (unknown) Pulse Oximetry 97 (units (unknown) date) 95 unknown) (unknown) (no (unknown) (unknown) Pulse Oximetry 97 (units (unknown) date) 96 unknown) (unknown) (no (unknown) (unknown) Pulse Oximetry 98 (units (unknown) date) 01/31/22 19:06 unknown) (unknown) (no (unknown) (unknown) Pulse Oximetry 98 (units (unknown) date) 95 unknown) (unknown) (no (unknown) (unknown) Pulse Oximetry 98 (units (unknown) date) 97 unknown) (unknown) (no (unknown) (unknown) Pulse Oximetry 98 (units (unknown) date) unknown) (unknown) (no (unknown) (unknown) Pulse Oximetry 99 (units (unknown) date) unknown) (unknown) (no (unknown) (unknown) Pulse Oximetry (units (unknown) date) unknown) (unknown) (no (unknown) (unknown) Pulse Rate 117 H (units (unknown) date) 01/31/22 19:06 unknown) (unknown) (no (unknown) (unknown) Pulse Rate 117 H (units (unknown) date) 124 H unknown) (unknown) (no (unknown) (unknown) Pulse Rate 118 H (units (unknown) date) 67 unknown) (unknown) (no (unknown) (unknown) Pulse Rate 119 H (units (unknown) date) 120 H unknown) (unknown) (no (unknown) (unknown) Pulse Rate 119 H (units (unknown) date) unknown) (unknown) (no (unknown) (unknown) Pulse Rate 122 H (units (unknown) date) 116 H unknown) (unknown) (no (unknown) (unknown) Pulse Rate 122 H (units (unknown) date) unknown) (unknown) (no (unknown) (unknown) Pulse Rate 124 H (units (unknown) date) 139 H unknown) (unknown) (no (unknown) (unknown) Pulse Rate 128 H (units (unknown) date) unknown) (unknown) (no (unknown) (unknown) Pulse Rate 143 H (units (unknown) date) unknown) (unknown) (no (unknown) (unknown) Pulse Rate 144 H (units (unknown) date) unknown) (unknown) (no (unknown) (unknown) Pulse Rate 150 H (units (unknown) date) 170 H unknown) (unknown) (no (unknown) (unknown) Pulse Rate 156 H (units (unknown) date) unknown) (unknown) (no (unknown) (unknown) Pulse Rate 162 H (units (unknown) date) unknown) (unknown) (no (unknown) (unknown) Pulse Rate (units (unk nown) date) unknown) (unknown) (no (unknown) (unknown) QTC prolonged at (units (unknown) date) 583 milliseconds unknown) (unknown) (no (unknown) (unknown) RBC (4.5-5.9) (units ( unknown) date) X106/uL unknown) (unknown) (no (unknown) (unknown) RBC 4.66 (4.5-5.9) (units (unknown) date) X106/uL unknown) (unknown) (no (unknown) (unknown) RBC Morphology See (units (unknown) date) below unknown) (unknown) (no (unknown) (unknown) RBC Morphology (units (unknown) date) unknown) (unknown) (no (unknown) (unknown) RDW (11.6-14.8) % (units (unknown) date) unknown) (unknown) (no (unknown) (unknown) RDW 14.0 (units (unkno wn) date) (11.6-14.8) % unknown) (unknown) (no (unknown) (unknown) RT Consult Eval (units (unknown) date) and Treat Now unknown) (unknown) (no (unknown) (unknown) Radiologist's (units ( unknown) date) Impression: unknown) (unknown) (no (unknown) (unknown) Related Data (units (u nknown) date) unknown) (unknown) (no (unknown) (unknown) Remainder of (units (u nknown) date) complete review of unknown) systems is otherwise unremarkable except for (unknown) (no (unknown) (unknown) Respiratory Rate 0 (units (unknown) date) L unknown) (unknown) (no (unknown) (unknown) Respiratory Rate (units (unknown) date) 22 unknown) (unknown) (no (unknown) (unknown) Respiratory Rate (units (unknown) date) 25 H 42 H unknown) (unknown) (no (unknown) (unknown) Respiratory Rate (units (unknown) date) 25 H unknown) (unknown) (no (unknown) (unknown) Respiratory Rate (units (unknown) date) 30 H unknown) (unknown) (no (unknown) (unknown) Respiratory Rate (units (unknown) date) 31 H unknown) (unknown) (no (unknown) (unknown) Respiratory Rate (units (unknown) date) 35 H 01/31/22 19:06 unknown) (unknown) (no (unknown) (unknown) Respiratory Rate (units (unknown) date) 35 H unknown) (unknown) (no (unknown) (unknown) Respiratory Rate (units (unknown) date) 37 H unknown) (unknown) (no (unknown) (unknown) Respiratory Rate (units (unknown) date) 39 H 41 H unknown) (unknown) (no (unknown) (unknown) Respiratory Rate (units (unknown) date) 40 H unknown) (unknown) (no (unknown) (unknown) Respiratory Rate (units (unknown) date) 43 H unknown) (unknown) (no (unknown) (unknown) Respiratory Rate (units (unknown) date) 48 H 51 H unknown) (unknown) (no (unknown) (unknown) Respiratory Rate (units (unknown) date) unknown) (unknown) (no (unknown) (unknown) Respiratory: Lungs (units (unknown) date) are clear to unknown) auscultation, no wheezing no rales no rhonchi. (unknown) (no (unknown) (unknown) Result diagrams: (units (unknown) date) unknown) (unknown) (no (unknown) (unknown) Review of Systems (units (unknown) date) unknown) (unknown) (no (unknown) (unknown) SARS-CoV-2 (PCR) (units (unknown) date) (Negative) unknown) (unknown) (no (unknown) (unknown) SARS-CoV-2 (PCR) (units (unknown) date) Negative (Negative) unknown) (unknown) (no (unknown) (unknown) ANGI (units (unkno wn) date) unknown) (unknown) (no (unknown) (unknown) ANGI; Protocol (units ( unknown) date) unknown) (unknown) (no (unknown) (unknown) Seg Neutrophils % (units (unknown) date) (38-70) % unknown) (unknown) (no (unknown) (unknown) Seg Neutrophils % (units (unknown) date) 82.0 H (38-70) % unknown) (unknown) (no (unknown) (unknown) Sepsis, Acute (units ( unknown) date) pyelonephritis, unknown) Benign prostatic hyperplasia, Acute urinary (unknown) (no (unknown) (unknown) Septic Shock (units (u nknown) date) Criteria unknown) (unknown) (no (unknown) (unknown) Septic Shock (units (u nknown) date) Determination. the unknown) patient has been screened and (unknown) (no (unknown) (unknown) Severe Sepsis (units ( unknown) date) Criteria unknown) (unknown) (no (unknown) (unknown) Severe Sepsis (units ( unknown) date) Determination. the unknown) patient has been screened and (unknown) (no (unknown) (unknown) Signed By: (units (unk nown) date) unknown) (unknown) (no (unknown) (unknown) Sinus tachycardia (units (unknown) date) at a rate of 116 unknown) (unknown) (no (unknown) (unknown) Skin: Pale but (units (unknown) date) otherwise Warm and unknown) dry, no rashes (unknown) (no (unknown) (unknown) Smoking Status: (units (unknown) date) Never smoker unknown) (unknown) (no (unknown) (unknown) Social History (units (unknown) date) (Reviewed 01/31/22 unknown) @ 21:45 by Kyleigh Castellanos MD) (unknown) (no (unknown) (unknown) Sodium (137-145) (units (unknown) date) mmol/L unknown) (unknown) (no (unknown) (unknown) Sodium 135 L (units (u nknown) date) (137-145) mmol/L unknown) (unknown) (no (unknown) (unknown) Sodium Chloride (units (unknown) date) (Normal Saline unknown) 0.9%) 1,000 mls @ 125 mls/hr IV CONT ANGI (unknown) (no (unknown) (unknown) Sodium Chloride (units (unknown) date) (Normal Saline unknown) 0.9%) 2,762.37 mls @ 920.79 mls/hr 30 ml/kg (unknown) (no (unknown) (unknown) Spleen:? (units (unkno wn) date) Unremarkable.? ? unknown) (unknown) (no (unknown) (unknown) Stated complaint: (units (unknown) date) Vomiting, Stomach unknown) cramps, SOB (unknown) (no (unknown) (unknown) Stomach and (units (un known) date) Bowel:? Stomach, unknown) small bowel loops, and colon are unremarkable.? (unknown) (no (unknown) (unknown) Stop: 01/31/22 (units (unknown) date) 20:06 unknown) (unknown) (no (unknown) (unknown) Stop: 01/31/22 (units (unknown) date) 21:04 unknown) (unknown) (no (unknown) (unknown) Stop: 01/31/22 (units (unknown) date) 21:42 unknown) (unknown) (no (unknown) (unknown) Stop: 01/31/22 (units (unknown) date) 22:13 unknown) (unknown) (no (unknown) (unknown) Stop: 01/31/22 (units (unknown) date) 22:50 unknown) (unknown) (no (unknown) (unknown) Stop: 01/31/22 (units (unknown) date) 23:01 unknown) (unknown) (no (unknown) (unknown) Stop: 01/31/22 (units (unknown) date) 23:10 unknown) (unknown) (no (unknown) (unknown) Stop: 01/31/22 (units (unknown) date) 23:48 unknown) (unknown) (no (unknown) (unknown) Stop: 02/01/22 (units (unknown) date) 04:48 unknown) (unknown) (no (unknown) (unknown) Substance Use (units ( unknown) date) Type: does not use unknown) (unknown) (no (unknown) (unknown) Subtle lateral ST (units (unknown) date) depression unknown) (unknown) (no (unknown) (unknown) Surgical changes (units (unknown) date) and devices:? unknown) None.? (unknown) (no (unknown) (unknown) Temperature 103.5 (units (unknown) date) F H unknown) (unknown) (no (unknown) (unknown) Temperature 103.8 (units (unknown) date) F H unknown) (unknown) (no (unknown) (unknown) Temperature 98.3 F (units (unknown) date) 01/31/22 19:06 unknown) (unknown) (no (unknown) (unknown) Temperature 98.3 F (units (unknown) date) unknown) (unknown) (no (unknown) (unknown) Temperature (units (un known) date) unknown) (unknown) (no (unknown) (unknown) The left (units (unkno wn) date) unknown) (unknown) (no (unknown) (unknown) This critical care (units (unknown) date) time includes unknown) consultation with family and other consulting (unknown) (no (unknown) (unknown) Time Seen by (units (u nknown) date) Provider: 01/31/22 unknown) 19:43 (unknown) (no (unknown) (unknown) Time Septic Shock (units (unknown) date) diagnosed: [ ] unknown) (unknown) (no (unknown) (unknown) Total Bilirubin (units (unknown) date) (0.2-1.3) mg/dL unknown) (unknown) (no (unknown) (unknown) Total Bilirubin (units (unknown) date) 2.2 H (0.2-1.3) unknown) mg/dL (unknown) (no (unknown) (unknown) Total Counted 100 (units (unknown) date) unknown) (unknown) (no (unknown) (unknown) Total Counted (units ( unknown) date) unknown) (unknown) (no (unknown) (unknown) Total Creatine (units (unknown) date) Kinase (55-170) U/L unknown) (unknown) (no (unknown) (unknown) Total Creatine (units (unknown) date) Kinase 59 (55-170) unknown) U/L (unknown) (no (unknown) (unknown) Total Critical (units (unknown) date) Care Time: 39 unknown) (unknown) (no (unknown) (unknown) Total Protein (units ( unknown) date) (6.3-8.2) g/dL unknown) (unknown) (no (unknown) (unknown) Total Protein 7.6 (units (unknown) date) (6.3-8.2) g/dL unknown) (unknown) (no (unknown) (unknown) Trop I [Troponin (units (unknown) date) I] Stat unknown) (unknown) (no (unknown) (unknown) Troponin + CK (units ( unknown) date) Cardiac Panel Stat unknown) (unknown) (no (unknown) (unknown) Troponin I (units (unk nown) date) (0.01-0.034) ng/mL unknown) (unknown) (no (unknown) (unknown) Troponin I 0.608 (units (unknown) date) H* (0.01-0.034) unknown) ng/mL (unknown) (no (unknown) (unknown) Troponin I 0.924 (units (unknown) date) H* (0.01-0.034) unknown) ng/mL (unknown) (no (unknown) (unknown) Troponin is (units (un known) date) elevated at 0.9-4. unknown) Priors are not available. He does not have a (unknown) (no (unknown) (unknown) Type 2 diabetes (units (unknown) date) mellitus unknown) (unknown) (no (unknown) (unknown) Ur Culture (units (unk nown) date) Indicated? Specimen unknown) cultured (unknown) (no (unknown) (unknown) Ur Culture (units (unk nown) date) Indicated? unknown) (unknown) (no (unknown) (unknown) Ur Leukocyte (units (u nknown) date) Esterase (NEGATIVE) unknown) (unknown) (no (unknown) (unknown) Ur Leukocyte (units (u nknown) date) Esterase 2+ H unknown) (NEGATIVE) (unknown) (no (unknown) (unknown) Ur Specific (units (un known) date) [place] unknown) (1.000-1.035) (unknown) (no (unknown) (unknown) Ur Specific (units (un known) date) [place] 1.010 unknown) (1.000-1.035) (unknown) (no (unknown) (unknown) Ur Squamous Epith (units (unknown) date) Cells (0-5/HPF) unknown) (unknown) (no (unknown) (unknown) Ur Squamous Epith (units (unknown) date) Cells None seen unknown) (0-5/HPF) (unknown) (no (unknown) (unknown) Urinalysis and (units (unknown) date) Microscopic Stat unknown) (unknown) (no (unknown) (unknown) Urine Appearance (units (unknown) date) Sl cloudy unknown) (unknown) (no (unknown) (unknown) Urine Appearance (units (unknown) date) unknown) (unknown) (no (unknown) (unknown) Urine Bacteria (units (unknown) date) (None) unknown) (unknown) (no (unknown) (unknown) Urine Bacteria (units (unknown) date) Many (>30) H (None) unknown) (unknown) (no (unknown) (unknown) Urine Bilirubin (units (unknown) date) (NEGATIVE) unknown) (unknown) (no (unknown) (unknown) Urine Bilirubin (units (unknown) date) Negative (NEGATIVE) unknown) (unknown) (no (unknown) (unknown) Urine Color Yellow (units (unknown) date) unknown) (unknown) (no (unknown) (unknown) Urine Color (units (un known) date) unknown) (unknown) (no (unknown) (unknown) Urine Culture Stat (units (unknown) date) unknown) (unknown) (no (unknown) (unknown) Urine Dip (units (unkn own) date) unknown) (unknown) (no (unknown) (unknown) Urine Glucose (UA) (units (unknown) date) (Negative) g/dL unknown) (unknown) (no (unknown) (unknown) Urine Glucose (UA) (units (unknown) date) Negative (Negative) unknown) g/dL (unknown) (no (unknown) (unknown) Urine Ketones (units ( unknown) date) (NEGATIVE) unknown) (unknown) (no (unknown) (unknown) Urine Ketones (units ( unknown) date) Negative (NEGATIVE) unknown) (unknown) (no (unknown) (unknown) Urine Nitrate (units ( unknown) date) (Negative) unknown) (unknown) (no (unknown) (unknown) Urine Nitrate (units ( unknown) date) Negative (Negative) unknown) (unknown) (no (unknown) (unknown) Urine Occult Blood (units (unknown) date) (Negative) unknown) (unknown) (no (unknown) (unknown) Urine Occult Blood (units (unknown) date) 1+ H (Negative) unknown) (unknown) (no (unknown) (unknown) Urine Protein (units ( unknown) date) (Negative) unknown) (unknown) (no (unknown) (unknown) Urine Protein 1+ H (units (unknown) date) (Negative) unknown) (unknown) (no (unknown) (unknown) Urine RBC (units (unkn own) date) (0-5/HPF) unknown) (unknown) (no (unknown) (unknown) Urine RBC 0-1/hpf (units (unknown) date) (0-5/HPF) unknown) (unknown) (no (unknown) (unknown) Urine Specific (units (unknown) date) [place] 1.02 unknown) (unknown) (no (unknown) (unknown) Urine Urobilinogen (units (unknown) date) (0.2) E.U./dL unknown) (unknown) (no (unknown) (unknown) Urine Urobilinogen (units (unknown) date) 0.2 (0.2) E.U./dL unknown) (unknown) (no (unknown) (unknown) Urine WBC (units (unkn own) date) (0-5/HPF) unknown) (unknown) (no (unknown) (unknown) Urine WBC (units (unkn own) date) 30-100/hpf H unknown) (0-5/HPF) (unknown) (no (unknown) (unknown) Urine pH (4.5-8.0) (units (unknown) date) unknown) (unknown) (no (unknown) (unknown) Urine pH 5.0 (units (u nknown) date) (4.5-8.0) unknown) (unknown) (no (unknown) (unknown) Ventral Wall: ? No (units (unknown) date) hernias.? unknown) (unknown) (no (unknown) (unknown) Vessels:? Aorta (units (unknown) date) and inferior vena unknown) cava are normal in size.? (unknown) (no (unknown) (unknown) Vital Signs - 8 hr (units (unknown) date) unknown) (unknown) (no (unknown) (unknown) Vital Signs (units (un known) date) unknown) (unknown) (no (unknown) (unknown) Vital signs: (units (u nknown) date) unknown) (unknown) (no (unknown) (unknown) WBC (4.5-11.0) (units (unknown) date) X103/uL unknown) (unknown) (no (unknown) (unknown) WBC 29.1 H (units (unk nown) date) (4.5-11.0) X103/uL unknown) (unknown) (no (unknown) (unknown) Was initially (units ( unknown) date) hypertensive is unknown) significantly tachycardic. Ultrasound for central (unknown) (no (unknown) (unknown) Within 3 hours (units (unknown) date) unknown) (unknown) (no (unknown) (unknown) Within 6 hours (if (units (unknown) date) continued unknown) hypotension after fluids or initial lactate >4) (unknown) (no (unknown) (unknown) XR chest 2V Stat (units (unknown) date) unknown) (unknown) (no (unknown) (unknown) [ ] 2 SIRS (units (unk nown) date) Criteria met unknown) (unknown) (no (unknown) (unknown) [ ] 30ml/kg fluid (units (unknown) date) unknown) (unknown) (no (unknown) (unknown) [ ] ABW used (units (u nknown) date) unknown) (unknown) (no (unknown) (unknown) [ ] BP < 90 or MAP (units (unknown) date) <65, >40mm decrease unknown) from normal baseline (unknown) (no (unknown) (unknown) [ ] Creat > 2.0 (units (unknown) date) unknown) (unknown) (no (unknown) (unknown) [ ] DOES NOT meet (units (unknown) date) criteria for severe unknown) sepsis (unknown) (no (unknown) (unknown) [ ] DOES meet (units ( unknown) date) criteria for septic unknown) shock (unknown) (no (unknown) (unknown) [ ] Evidence of at (units (unknown) date) least 1 organ unknown) system dysfunction (unknown) (no (unknown) (unknown) [ ] IBW (33.6) (units (unknown) date) used due to BMI > unknown) 30 (unknown) (no (unknown) (unknown) [ ] Initiate (units (u nknown) date) vasopressor therapy unknown) if persistent hypotension after adequate fluid (unknown) (no (unknown) (unknown) [ ] RR >20 (units (unk nown) date) unknown) (unknown) (no (unknown) (unknown) [ ] SBP ,90 or MAP (units (unknown) date) , 65 unknown) (unknown) (no (unknown) (unknown) [ ] altered mental (units (unknown) date) status unknown) (unknown) (no (unknown) (unknown) [ ] documentation (units (unknown) date) of septic shock unknown) (unknown) (no (unknown) (unknown) [ ] lactic > 4 at (units (unknown) date) any time unknown) (unknown) (no (unknown) (unknown) [ ] lactic redrawn (units (unknown) date) within 6 hours if unknown) >2.0 (unknown) (no (unknown) (unknown) [ ] mechanical (units (unknown) date) ventilation unknown) (unknown) (no (unknown) (unknown) [ ] patient or (units (unknown) date) advocate declining unknown) fluid administration after shared decision (unknown) (no (unknown) (unknown) [ ] platelet count (units (unknown) date) < 100k unknown) (unknown) (no (unknown) (unknown) [ ] provider (units (u nknown) date) documentation of unknown) severe sepsis (unknown) (no (unknown) (unknown) [ ] repeat volume (units (unknown) date) status and tissue unknown) perfusion assessment documented after fluid (unknown) (no (unknown) (unknown) [ x ] DOES meet (units (unknown) date) criteria for severe unknown) sepsis (unknown) (no (unknown) (unknown) [ x ] Lactate > 2 (units (unknown) date) unknown) (unknown) (no (unknown) (unknown) [ x ] broad (units (un known) date) spectrum abx unknown) started (unknown) (no (unknown) (unknown) [ x ] fever or (units (unknown) date) hypothermia unknown) (unknown) (no (unknown) (unknown) [ x ] lactic acid (units (unknown) date) level checked unknown) (unknown) (no (unknown) (unknown) [ x ] (units (unkno wn) date) leukocytosis/leukop unknown) enia/bandemia (unknown) (no (unknown) (unknown) [ x] HR >90 (units (un known) date) unknown) (unknown) (no (unknown) (unknown) [Embedded Image (units (unknown) date) Not Available] unknown) (unknown) (no (unknown) (unknown) [x ] DOES NOT meet (units (unknown) date) criteria for septic unknown) shock (unknown) (no (unknown) (unknown) [x ] T. Bili > 2.0 (units (unknown) date) unknown) (unknown) (no (unknown) (unknown) [x ] bacterial (units (unknown) date) source of infection unknown) suspected and documented (unknown) (no (unknown) (unknown) [x ] blood cx (units ( unknown) date) drawn prior to abx unknown) (unknown) (no (unknown) (unknown) a incontinence (units (unknown) date) pad. He has not unknown) been having any diarrhea or constipation. He (unknown) (no (unknown) (unknown) a slight (units (unkno wn) date) unknown) (unknown) (no (unknown) (unknown) account. (units (unkno wn) date) unknown) (unknown) (no (unknown) (unknown) administered. His (units (unknown) date) abdominal pain is unknown) significantly improved. He is still (unknown) (no (unknown) (unknown) admission and (units ( unknown) date) after the CT scan unknown) has been completed the patient will go directly (unknown) (no (unknown) (unknown) airways are (units (un known) date) unknown) (unknown) (no (unknown) (unknown) alcohol intake (units (unknown) date) frequency: unknown) holidays/special occasions only (unknown) (no (unknown) (unknown) alcohol intake: (units (unknown) date) current unknown) (unknown) (no (unknown) (unknown) amlodipine 10 mg (units (unknown) date) tablet 10 mg PO unknown) DAILY 01/27/18 07/13/19 (unknown) (no (unknown) (unknown) and normotensive (units (unknown) date) with oxygen unknown) saturations 99% on room air. (unknown) (no (unknown) (unknown) any significant (units (unknown) date) cough, chest pain, unknown) palpitations, lower extremity edema. He (unknown) (no (unknown) (unknown) appear intact (units ( unknown) date) unknown) (unknown) (no (unknown) (unknown) appendicitis. (units ( unknown) date) unknown) (unknown) (no (unknown) (unknown) appropriate (units (un known) date) sedation. No unknown) significant debris or edema coming up the ET tube. (unknown) (no (unknown) (unknown) arterial (units (unkno wn) date) unknown) (unknown) (no (unknown) (unknown) aspiration as (units ( unknown) date) unknown) (unknown) (no (unknown) (unknown) aspiration (units (unk nown) date) unknown) (unknown) (no (unknown) (unknown) asymmetries or (units (unknown) date) abnormalities unknown) (unknown) (no (unknown) (unknown) been significantly (units (unknown) date) fatigued but is unknown) otherwise cognitively intact. (unknown) (no (unknown) (unknown) began with (units (unk nown) date) ceftriaxone and unknown) Flagyl thinking that this was a GI source. (unknown) (no (unknown) (unknown) bolus was (units (unkn own) date) completed at unknown) [Date/Time] (unknown) (no (unknown) (unknown) bolus (units (unkno wn) date) unknown) (unknown) (no (unknown) (unknown) by the bladder (units (unknown) date) outlet obstruction unknown) and chronic urinary retention. (unknown) (no (unknown) (unknown) capillary refill (units (unknown) date) and no evidence of unknown) hypotension. Findings and concerns are (unknown) (no (unknown) (unknown) chance to (units (unkn own) date) follow-up since unknown) that catheter was placed. (unknown) (no (unknown) (unknown) chlorthalidone 50 (units (unknown) date) mg tablet 50 mg PO unknown) DAILY 01/27/18 07/13/19 (unknown) (no (unknown) (unknown) collecting (units (unk nown) date) unknown) (unknown) (no (unknown) (unknown) consolidation.? No (units (unknown) date) pleural effusions unknown) or pneumothorax.? Central and peripheral (unknown) (no (unknown) (unknown) day that (units (unkno wn) date) unknown) (unknown) (no (unknown) (unknown) degree Mya renal (units (unknown) date) edema.? A urinary unknown) tract stone, is not seen on the left. (unknown) (no (unknown) (unknown) doctors, review of (units (unknown) date) records, and unknown) interpretation of data from labs, EKGs and (unknown) (no (unknown) (unknown) down and Urology (units (unknown) date) available to unknown) consult he felt that admission to [facility] (unknown) (no (unknown) (unknown) exenatide (units (unkn own) date) microspheres 2 unknown) mg/0.85 2 mg SUBCUT QWEEK 07/05/19 07/13/19 (unknown) (no (unknown) (unknown) failure. Current (units (unknown) date) access is 2 20 unknown) gauge peripheral IVs (unknown) (no (unknown) (unknown) fatigue, overall (units (unknown) date) altered mental unknown) status, increasing abdominal pain. He denies (unknown) (no (unknown) (unknown) fenofibrate (units (un known) date) nanocrystallized unknown) 145 145 mg PO DAILY 07/05/19 07/13/19 (unknown) (no (unknown) (unknown) for such. He is (units (unknown) date) not complaining of unknown) chest pain. Will repeat. (unknown) (no (unknown) (unknown) had appeared free (units (unknown) date) of such unknown) infiltrations.? This implies a high likelihood of (unknown) (no (unknown) (unknown) has been passing (units (unknown) date) gas. Reports no unknown) significant headache. They report that he has (unknown) (no (unknown) (unknown) hilar adenopathy.? (units (unknown) date) Thoracic aorta is unknown) normal in caliber and enhancement.? (unknown) (no (unknown) (unknown) history of known (units (unknown) date) coronary disease unknown) but does have a all appropriate risk factors (unknown) (no (unknown) (unknown) household members: (units (unknown) date) spouse unknown) (unknown) (no (unknown) (unknown) however Covid19 (units (unknown) date) made surgical unknown) planning challenging and he has not yet had the (unknown) (no (unknown) (unknown) hydronephrosis or (units (unknown) date) unknown) (unknown) (no (unknown) (unknown) hyperlipidemia, (units (unknown) date) prior kidney stones unknown) presents with 12 hours of increasing fevers, (unknown) (no (unknown) (unknown) imaging as well as (units (unknown) date) managements of unknown) sepsis, acute infection, flash pulmonary edema (unknown) (no (unknown) (unknown) infuse over 3 hr (units (unknown) date) (2762.37 ml) IV NOW unknown) ONE (unknown) (no (unknown) (unknown) insulin glargine (units (unknown) date) 100 unit/mL (3 26 unknown) units SUBCUT DAILY 01/27/18 07/13/19 (unknown) (no (unknown) (unknown) intraluminal (units (u nknown) date) filling defects to unknown) suggest central pulmonary embolism.? (unknown) (no (unknown) (unknown) is placed. Urine (units (unknown) date) does look acutely unknown) infected. (unknown) (no (unknown) (unknown) kidney demonstrates (units (unknown) date) slight prominence unknown) of the central renal collecting system and (unknown) (no (unknown) (unknown) levofloxacin [From (units (unknown) date) Levaquin] Allergy unknown) Rash Verified 01/31/22 19:12 (unknown) (no (unknown) (unknown) line placement (units (unknown) date) shows no evidence unknown) of volume depletion. He is given 5 mg of IV (unknown) (no (unknown) (unknown) looks like a (units (u nknown) date) urinary tract unknown) infection. In the setting of acute urinary (unknown) (no (unknown) (unknown) losartan 100 mg (units (unknown) date) tablet 100 mg PO unknown) DAILY 01/27/18 07/13/19 (unknown) (no (unknown) (unknown) mL subcutaneous (units (unknown) date) auto-injector unknown) (unknown) (no (unknown) (unknown) mL) subcutaneous (units (unknown) date) pen unknown) (unknown) (no (unknown) (unknown) making (units (unkno wn) date) conversation unknown) (unknown) (no (unknown) (unknown) mediastinal or (units (unknown) date) unknown) (unknown) (no (unknown) (unknown) metformin 500 mg (units (unknown) date) tablet 500 mg PO unknown) BID 01/27/18 07/13/19 (unknown) (no (unknown) (unknown) metoprolol with (units (unknown) date) his rate coming unknown) down from a sinus tach in the 160 range to the (unknown) (no (unknown) (unknown) mg tablet (units (unkn own) date) unknown) (unknown) (no (unknown) (unknown) minor prominence (units (unknown) date) of the renal unknown) collecting system on the left without obvious (unknown) (no (unknown) (unknown) no flank pain (units ( unknown) date) unknown) (unknown) (no (unknown) (unknown) normal in caliber, (units (unknown) date) without hiatal unknown) hernia.? (unknown) (no (unknown) (unknown) not (units (unkno wn) date) unknown) (unknown) (no (unknown) (unknown) of oxygen. Given (units (unknown) date) Reglan. With unknown) prolonged QT I do not want to use Zofran. (unknown) (no (unknown) (unknown) oxycodone 5 mg (units (unknown) date) capsule 5 mg PO Q4H unknown) PRN pain #14 caps 07/13/19 (unknown) (no (unknown) (unknown) pain for further (units (unknown) date) evaluation. unknown) Tachycardic, tachypneic, afebrile on presentation (unknown) (no (unknown) (unknown) patent.? (units (unkno wn) date) unknown) (unknown) (no (unknown) (unknown) peripheral pulse (units (unknown) date) evaluation, skin unknown) exam (unknown) (no (unknown) (unknown) phase of (units (unkno wn) date) enhancement.? unknown) (unknown) (no (unknown) (unknown) pigtail right (units ( unknown) date) ureteral stent unknown) without hydronephrosis or hydroureter. Urine (unknown) (no (unknown) (unknown) pigtail (units (unkno wn) date) unknown) (unknown) (no (unknown) (unknown) posterior lungs (units (unknown) date) bilaterally in this unknown) patient with chest plain film earlier same (unknown) (no (unknown) (unknown) prior to (units (unkno wn) date) determining acuity unknown) of hospital needs for admission. (unknown) (no (unknown) (unknown) probability of a (units (unknown) date) significant, sudden unknown) or life-threatening deterioration that (unknown) (no (unknown) (unknown) requires my full (units (unknown) date) and direct unknown) attention, intervention and personal management. (unknown) (no (unknown) (unknown) retained (units (unkno wn) date) calculus.? On the unknown) left there is mild prominence of the central renal (unknown) (no (unknown) (unknown) retention, Flash (units (unknown) date) pulmonary edema, unknown) Respiratory failure (unknown) (no (unknown) (unknown) retention, pigtail (units (unknown) date) catheter still in unknown) place and mild prominence of the collecting (unknown) (no (unknown) (unknown) reviewed with the (units (unknown) date) patient and his unknown) daughter. Will wait to see repeat troponin (unknown) (no (unknown) (unknown) right ureteral (units (unknown) date) stent.? There is no unknown) right-sided hydronephrosis or hydroureter.? (unknown) (no (unknown) (unknown) rosuvastatin 40 mg (units (unknown) date) tablet 40 mg PO unknown) DAILY 07/05/19 07/13/19 (unknown) (no (unknown) (unknown) sample is obtained (units (unknown) date) and 1725 cc of unknown) urine are initially drained. Ramírez catheter (unknown) (no (unknown) (unknown) saturations are (units (unknown) date) dropping slightly unknown) 87% with a good waveform. He started on 2 L (unknown) (no (unknown) (unknown) saturations. (units (u nknown) date) Patient is moved to unknown) room 1 intubated with central line placed. (unknown) (no (unknown) (unknown) seen. (units (unkno wn) date) unknown) (unknown) (no (unknown) (unknown) showing signs of (units (unknown) date) good peripheral unknown) perfusion with warm extremities with good (unknown) (no (unknown) (unknown) shows flash (units (un known) date) pulmonary edema. unknown) (unknown) (no (unknown) (unknown) signs of (units (unkno wn) date) obstruction. unknown) (unknown) (no (unknown) (unknown) states that he is (units (unknown) date) able to void but it unknown) is only intervals and he frequently wears (unknown) (no (unknown) (unknown) supraclavicular (units (unknown) date) adenopathy.? unknown) (unknown) (no (unknown) (unknown) system but an (units (u nknown) date) obstructive urinary unknown) tract stone more distally within the ureter is (unknown) (no (unknown) (unknown) system on the (units ( unknown) date) right without unknown) evidence of stone urology will be consult today. (unknown) (no (unknown) (unknown) taken into (units (unk nown) date) unknown) (unknown) (no (unknown) (unknown) tamsulosin 0.4 mg (units (unknown) date) capsule 0.4 mg PO unknown) DAILY #60 caps 07/13/19 (unknown) (no (unknown) (unknown) than aspiration (units (unknown) date) unknown) (unknown) (no (unknown) (unknown) that included in (units (unknown) date) the HPI. unknown) (unknown) (no (unknown) (unknown) the underlying (units (unknown) date) cause. unknown) (unknown) (no (unknown) (unknown) the (units (unkno wn) date) unknown) (unknown) (no (unknown) (unknown) throughout.? (units (u nknown) date) Thyroid gland unknown) appears normal where well seen.? No axillary or (unknown) (no (unknown) (unknown) to direct (units (unkn own) date) questions unknown) (unknown) (no (unknown) (unknown) to the intensive (units (unknown) date) care unit. unknown) (unknown) (no (unknown) (unknown) unremarkable.? (units (unknown) date) unknown) (unknown) (no (unknown) (unknown) with acute (units (unk nown) date) respiratory unknown) deterioration. (unknown) (no (unknown) (unknown) would be (units (unkno wn) date) appropriate. unknown) Patient is doing better with appropriate sedation. Result panel 28 (unknown) (no date) (unknown) (unknown) -9.0 mmol/l (unkn own) (unknown) (no date) (unknown) (unknown) 100 (units unknown) (unknown) (unknown) (no date) (unknown) (unknown) 154 mmhg (unkn own) (unknown) (no date) (unknown) (unknown) 19 mmol/l (unkn own) (unknown) (no date) (unknown) (unknown) 20 mmol/l (unkn own) (unknown) (no date) (unknown) (unknown) 44.6 mmhg (unkn own) (unknown) (no date) (unknown) (unknown) 7.23 (units unknown) (unknown) (unknown) (no date) (unknown) (unknown) 7.23 (units unknown) (unknown) (unknown) (no date) (unknown) (unknown) 99 % (unkn own) Result panel 29 (unknown) (no (unknown) (unknown) (no value) (units (unk nown) date) unknown) (unknown) (no (unknown) (unknown) (past 8 hours): (units (unknown) date) unknown) (unknown) (no (unknown) (unknown) 0.7 MCG/KG/HR (units ( unknown) date) unknown) (unknown) (no (unknown) (unknown) 00:00 (units (unkno wn) date) unknown) (unknown) (no (unknown) (unknown) 07/13/19] (units (unkn own) date) unknown) (unknown) (no (unknown) (unknown) 01/27/18 [History (units (unknown) date) Confirmed 07/13/19] unknown) (unknown) (no (unknown) (unknown) 01/31/22 01/31/22 (units (unknown) date) 01/31/22 unknown) (unknown) (no (unknown) (unknown) 01/31/22 20:00 (units (unknown) date) unknown) (unknown) (no (unknown) (unknown) 01/31/22 (units (unkno wn) date) unknown) (unknown) (no (unknown) (unknown) 19:06 01/31/22 (units (unknown) date) unknown) (unknown) (no (unknown) (unknown) 19:19 01/31/22 (units (unknown) date) unknown) (unknown) (no (unknown) (unknown) 19:20 01/31/22 (units (unknown) date) unknown) (unknown) (no (unknown) (unknown) 19:20 (units (unkno wn) date) unknown) (unknown) (no (unknown) (unknown) 19:30 01/31/22 (units (unknown) date) unknown) (unknown) (no (unknown) (unknown) 19:30 (units (unkno wn) date) unknown) (unknown) (no (unknown) (unknown) 2 mg SUBCUT QWEEK (units (unknown) date) 07/05/19 [History unknown) Confirmed 07/13/19] (unknown) (no (unknown) (unknown) 20:00 01/31/22 (units (unknown) date) unknown) (unknown) (no (unknown) (unknown) 20:00 20:00 20:00 (units (unknown) date) unknown) (unknown) (no (unknown) (unknown) 20:14 22:13 22:13 (units (unknown) date) unknown) (unknown) (no (unknown) (unknown) 20:30 01/31/22 (units (unknown) date) unknown) (unknown) (no (unknown) (unknown) 20:30 (units (unkno wn) date) unknown) (unknown) (no (unknown) (unknown) 20:45 01/31/22 (units (unknown) date) unknown) (unknown) (no (unknown) (unknown) 21:07 (units (unkno wn) date) unknown) (unknown) (no (unknown) (unknown) 21:11 01/31/22 (units (unknown) date) unknown) (unknown) (no (unknown) (unknown) 21:15 01/31/22 (units (unknown) date) unknown) (unknown) (no (unknown) (unknown) 21:30 01/31/22 (units (unknown) date) unknown) (unknown) (no (unknown) (unknown) 21:30 (units (unkno wn) date) unknown) (unknown) (no (unknown) (unknown) 21:46 01/31/22 (units (unknown) date) unknown) (unknown) (no (unknown) (unknown) 21:46 (units (unkno wn) date) unknown) (unknown) (no (unknown) (unknown) 22:00 01/31/22 (units (unknown) date) unknown) (unknown) (no (unknown) (unknown) 22:05 (units (unkno wn) date) unknown) (unknown) (no (unknown) (unknown) 22:15 01/31/22 (units (unknown) date) unknown) (unknown) (no (unknown) (unknown) 22:15 (units (unkno wn) date) unknown) (unknown) (no (unknown) (unknown) 22:21 01/31/22 (units (unknown) date) unknown) (unknown) (no (unknown) (unknown) 22:21 (units (unkno wn) date) unknown) (unknown) (no (unknown) (unknown) 22:30 01/31/22 (units (unknown) date) unknown) (unknown) (no (unknown) (unknown) 22:30 (units (unkno wn) date) unknown) (unknown) (no (unknown) (unknown) 22:40 01/31/22 (units (unknown) date) unknown) (unknown) (no (unknown) (unknown) 22:45 01/31/22 (units (unknown) date) unknown) (unknown) (no (unknown) (unknown) 22:45 (units (unkno wn) date) unknown) (unknown) (no (unknown) (unknown) 22:49 01/31/22 (units (unknown) date) unknown) (unknown) (no (unknown) (unknown) 22:50 (units (unkno wn) date) unknown) (unknown) (no (unknown) (unknown) 22:52 01/31/22 (units (unknown) date) unknown) (unknown) (no (unknown) (unknown) 22:55 01/31/22 (units (unknown) date) unknown) (unknown) (no (unknown) (unknown) 23:00 01/31/22 (units (unknown) date) unknown) (unknown) (no (unknown) (unknown) 23:00 (units (unkno wn) date) unknown) (unknown) (no (unknown) (unknown) 23:06 01/31/22 (units (unknown) date) unknown) (unknown) (no (unknown) (unknown) 23:10 01/31/22 (units (unknown) date) unknown) (unknown) (no (unknown) (unknown) 23:10 (units (unkno wn) date) unknown) (unknown) (no (unknown) (unknown) 23:15 (units (unkno wn) date) unknown) (unknown) (no (unknown) (unknown) 23:49 (units (unkno wn) date) unknown) (unknown) (no (unknown) (unknown) 5 MCG/KG/MIN (units (u nknown) date) unknown) (unknown) (no (unknown) (unknown) 71 y.o. 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, hyperlipidemia, prior kidney (unknown) (no (unknown) (unknown) ALT 16 (units (unkno wn) date) unknown) (unknown) (no (unknown) (unknown) ALT (units (unkno wn) date) unknown) (unknown) (no (unknown) (unknown) APTT 31 (units (unkno wn) date) unknown) (unknown) (no (unknown) (unknown) APTT (units (unkno wn) date) unknown) (unknown) (no (unknown) (unknown) AST 31 (units (unkno wn) date) unknown) (unknown) (no (unknown) (unknown) AST (units (unkno wn) date) unknown) (unknown) (no (unknown) (unknown) Administration (units (unknown) date) unknown) (unknown) (no (unknown) (unknown) Age/Sex: 71 / M (units (unknown) date) unknown) (unknown) (no (unknown) (unknown) Albumin 4.2 (units (un known) date) unknown) (unknown) (no (unknown) (unknown) Albumin (units (unkno wn) date) unknown) (unknown) (no (unknown) (unknown) Albumin/Globulin (units (unknown) date) Ratio 1.2 unknown) (unknown) (no (unknown) (unknown) Albumin/Globulin (units (unknown) date) Ratio unknown) (unknown) (no (unknown) (unknown) Alkaline (units (unkno wn) date) Phosphatase 66 unknown) (unknown) (no (unknown) (unknown) Alkaline (units (unkno wn) date) Phosphatase unknown) (unknown) (no (unknown) (unknown) Anisocytosis 1+ H (units (unknown) date) unknown) (unknown) (no (unknown) (unknown) Anisocytosis (units (u nknown) date) unknown) (unknown) (no (unknown) (unknown) Assessment + Plan (units (unknown) date) narrative: unknown) (unknown) (no (unknown) (unknown) Assessment + Plan (units (unknown) date) unknown) (unknown) (no (unknown) (unknown) BUN 22 H (units (unkno wn) date) unknown) (unknown) (no (unknown) (unknown) BUN (units (unkno wn) date) unknown) (unknown) (no (unknown) (unknown) BUN/Creatinine (units (unknown) date) Ratio 13.8 unknown) (unknown) (no (unknown) (unknown) BUN/Creatinine (units (unknown) date) Ratio unknown) (unknown) (no (unknown) (unknown) Band Neutrophils % (units (unknown) date) 12.0 H unknown) (unknown) (no (unknown) (unknown) Band Neutrophils % (units (unknown) date) unknown) (unknown) (no (unknown) (unknown) Baso # (Auto) Not (units (unknown) date) Reportable unknown) (unknown) (no (unknown) (unknown) Baso # (Auto) (units ( unknown) date) unknown) (unknown) (no (unknown) (unknown) Baso % (Auto) Not (units (unknown) date) Reportable unknown) (unknown) (no (unknown) (unknown) Baso % (Auto) (units ( unknown) date) unknown) (unknown) (no (unknown) (unknown) Blood Pressure (units (unknown) date) 115/69 120/75 unknown) 128/77 (unknown) (no (unknown) (unknown) Blood Pressure (units (unknown) date) 127/80 unknown) (unknown) (no (unknown) (unknown) Blood Pressure (units (unknown) date) 128/76 160/104 H unknown) (unknown) (no (unknown) (unknown) Blood Pressure (units (unknown) date) 132/79 unknown) (unknown) (no (unknown) (unknown) Blood Pressure (units (unknown) date) 134/75 139/80 unknown) (unknown) (no (unknown) (unknown) Blood Pressure (units (unknown) date) 136/78 unknown) (unknown) (no (unknown) (unknown) Blood Pressure (units (unknown) date) 137/76 unknown) (unknown) (no (unknown) (unknown) Blood Pressure (units (unknown) date) 138/78 146/84 H unknown) (unknown) (no (unknown) (unknown) Blood Pressure (units (unknown) date) 147/79 H unknown) (unknown) (no (unknown) (unknown) Blood Pressure (units (unknown) date) 150/100 H unknown) (unknown) (no (unknown) (unknown) Blood Pressure (units (unknown) date) 153/77 H 128/76 unknown) (unknown) (no (unknown) (unknown) Blood Pressure (units (unknown) date) 153/93 H 113/68 unknown) (unknown) (no (unknown) (unknown) Blood Pressure (units (unknown) date) 159/99 H 139/80 unknown) (unknown) (no (unknown) (unknown) Blood Pressure (units (unknown) date) 174/114 H unknown) (unknown) (no (unknown) (unknown) Blood Pressure (units (unknown) date) 206/130 H 170/100 H unknown) (unknown) (no (unknown) (unknown) CK-MB (CK-2) Rel (units (unknown) date) Index TNP unknown) (unknown) (no (unknown) (unknown) CK-MB (CK-2) Rel (units (unknown) date) Index unknown) (unknown) (no (unknown) (unknown) CK-MB (CK-2) TNP (units (unknown) date) unknown) (unknown) (no (unknown) (unknown) CK-MB (CK-2) (units (u nknown) date) unknown) (unknown) (no (unknown) (unknown) Calcium 8.1 L (units ( unknown) date) unknown) (unknown) (no (unknown) (unknown) Calcium (units (unkno wn) date) unknown) (unknown) (no (unknown) (unknown) Carbon Dioxide 23 (units (unknown) date) unknown) (unknown) (no (unknown) (unknown) Carbon Dioxide (units (unknown) date) unknown) (unknown) (no (unknown) (unknown) Chief complaint: (units (unknown) date) Vomiting, Stomach unknown) cramps, SOB (unknown) (no (unknown) (unknown) Chloride 96 L (units ( unknown) date) unknown) (unknown) (no (unknown) (unknown) Chloride (units (unkno wn) date) unknown) (unknown) (no (unknown) (unknown) Confirmed (units (unkn own) date) 07/13/19] unknown) (unknown) (no (unknown) (unknown) Consent obtained (units (unknown) date) for unknown) tele-chicken boner care: Yes (unknown) (no (unknown) (unknown) Consult details (units (unknown) date) unknown) (unknown) (no (unknown) (unknown) Creatinine 1.60 H (units (unknown) date) unknown) (unknown) (no (unknown) (unknown) Creatinine (units (unk nown) date) unknown) (unknown) (no (unknown) (unknown) Critical Care (units ( unknown) date) time: unknown) (unknown) (no (unknown) (unknown) Current (units (unkno wn) date) Medications unknown) (unknown) (no (unknown) (unknown) D-Dimer 821 H (units ( unknown) date) unknown) (unknown) (no (unknown) (unknown) D-Dimer (units (unkno wn) date) unknown) (unknown) (no (unknown) (unknown) : 1950 (units (unknown) date) Acct:[id number] unknown) (unknown) (no (unknown) (unknown) Date Patient Seen: (units (unknown) date) 02/01/22 unknown) (unknown) (no (unknown) (unknown) Date of Service: (units (unknown) date) 01/31/22 unknown) (unknown) (no (unknown) (unknown) Eos % (Auto) Not (units (unknown) date) Reportable unknown) (unknown) (no (unknown) (unknown) Eos % (Auto) (units (u nknown) date) unknown) (unknown) (no (unknown) (unknown) Estimated GFR 45 L (units (unknown) date) unknown) (unknown) (no (unknown) (unknown) Estimated GFR (units ( unknown) date) unknown) (unknown) (no (unknown) (unknown) Exam Narrative: (units (unknown) date) unknown) (unknown) (no (unknown) (unknown) Exam (units (unkno wn) date) unknown) (unknown) (no (unknown) (unknown) Fentanyl 1,000 (units (unknown) date) mcg/ Dextrose 250 unknown) mls @ 16.114 mls/hr 01/31/22 23:15 02/01/22 (unknown) (no (unknown) (unknown) Generic Name Dose (units (unknown) date) Route Start Last unknown) Admin (unknown) (no (unknown) (unknown) Globulin 3.4 (units (u nknown) date) unknown) (unknown) (no (unknown) (unknown) Globulin (units (unkno wn) date) unknown) (unknown) (no (unknown) (unknown) Glucose 262 H (units ( unknown) date) unknown) (unknown) (no (unknown) (unknown) Glucose (units (unkno wn) date) unknown) (unknown) (no (unknown) (unknown) Hct 38.2 L (units (unk nown) date) unknown) (unknown) (no (unknown) (unknown) Hct (units (unkno wn) date) unknown) (unknown) (no (unknown) (unknown) Hgb 13.3 L (units (unk nown) date) unknown) (unknown) (no (unknown) (unknown) Hgb (units (unkno wn) date) unknown) (unknown) (no (unknown) (unknown) History of Present (units (unknown) date) Illness unknown) (unknown) (no (unknown) (unknown) History of kidney (units (unknown) date) stones unknown) (unknown) (no (unknown) (unknown) Home Medications (units (unknown) date) unknown) (unknown) (no (unknown) (unknown) Hyperlipidemia (units (unknown) date) unknown) (unknown) (no (unknown) (unknown) Hypertension (units (u nknown) date) unknown) (unknown) (no (unknown) (unknown) I spent a total of (units (unknown) date) [] minutes of unknown) critical care time on this patient's care (unknown) (no (unknown) (unknown) INR 1.6 H (units (unkn own) date) unknown) (unknown) (no (unknown) (unknown) INR (units (unkno wn) date) unknown) (unknown) (no (unknown) (unknown) IV 0.7 mcg/kg/hr (units (unknown) date) unknown) (unknown) (no (unknown) (unknown) [facility] (units (unknown) date) [address] unknown) [place] [address] (unknown) (no (unknown) (unknown) Kidney stones (units ( unknown) date) unknown) (unknown) (no (unknown) (unknown) Laboratory Results (units (unknown) date) - last 24 hr unknown) (unknown) (no (unknown) (unknown) Labs (units (unkno wn) date) unknown) (unknown) (no (unknown) (unknown) Labs: (units (unkno wn) date) unknown) (unknown) (no (unknown) (unknown) Lactate 3.0 H (units ( unknown) date) unknown) (unknown) (no (unknown) (unknown) Lactate 5.3 H* (units (unknown) date) unknown) (unknown) (no (unknown) (unknown) Lactate (units (unkno wn) date) unknown) (unknown) (no (unknown) (unknown) Lactic acidosis (units (unknown) date) unknown) (unknown) (no (unknown) (unknown) Lymph # (Auto) Not (units (unknown) date) Reportable unknown) (unknown) (no (unknown) (unknown) Lymph # (Auto) (units (unknown) date) unknown) (unknown) (no (unknown) (unknown) Lymph % (Auto) Not (units (unknown) date) Reportable unknown) (unknown) (no (unknown) (unknown) Lymph % (Auto) (units (unknown) date) unknown) (unknown) (no (unknown) (unknown) Lymphocytes % (units ( unknown) date) (Manual) 5.0 L unknown) (unknown) (no (unknown) (unknown) Lymphocytes % (units ( unknown) date) (Manual) unknown) (unknown) (no (unknown) (unknown) [id number] (units (unk nown) date) unknown) (unknown) (no (unknown) (unknown) MCH 28.5 (units (unkno wn) date) unknown) (unknown) (no (unknown) (unknown) MCH (units (unkno wn) date) unknown) (unknown) (no (unknown) (unknown) MCHC 34.8 (units ( own) date) unknown) (unknown) (no (unknown) (unknown) MCHC (units (unkno wn) date) unknown) (unknown) (no (unknown) (unknown) MCV 81.8 (units (unkno wn) date) unknown) (unknown) (no (unknown) (unknown) MCV (units (unkno wn) date) unknown) (unknown) (no (unknown) (unknown) Medical History (units (unknown) date) (Updated 01/31/22 @ unknown) 23:30 by Kyleigh Castellanos MD) (unknown) (no (unknown) (unknown) Medications: (units (u nknown) date) unknown) (unknown) (no (unknown) (unknown) [place] # (Auto) Not (units (unknown) date) Reportable unknown) (unknown) (no (unknown) (unknown) [place] # (Auto) (units ( unknown) date) unknown) (unknown) (no (unknown) (unknown) [place] % (Auto) Not (units (unknown) date) Reportable unknown) (unknown) (no (unknown) (unknown) [place] % (Auto) (units ( unknown) date) unknown) (unknown) (no (unknown) (unknown) Monocytes % (units (un known) date) (Manual) 1.0 L unknown) (unknown) (no (unknown) (unknown) Monocytes % (units (un known) date) (Manual) unknown) (unknown) (no (unknown) (unknown) Narrative (units (unkn own) date) unknown) (unknown) (no (unknown) (unknown) Narrative: (units (unk nown) date) unknown) (unknown) (no (unknown) (unknown) Neut % (Auto) Not (units (unknown) date) Reportable unknown) (unknown) (no (unknown) (unknown) Neut % (Auto) (units ( unknown) date) unknown) (unknown) (no (unknown) (unknown) Neutrophils # (units ( unknown) date) (Manual) [id number] H unknown) (unknown) (no (unknown) (unknown) Neutrophils # (units ( unknown) date) (Manual) unknown) (unknown) (no (unknown) (unknown) Objective (units (unkn own) date) unknown) (unknown) (no (unknown) (unknown) Other (units (unkno wn) date) participants/roles: unknown) RN, 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 (unknown) (no (unknown) (unknown) Oxygen Delivery (units (unknown) date) Method Room Air unknown) Room Air (unknown) (no (unknown) (unknown) Oxygen Delivery (units (unknown) date) Method Room Air unknown) (unknown) (no (unknown) (unknown) Oxygen Delivery (units (unknown) date) Method unknown) (unknown) (no (unknown) (unknown) PFSH (units (unkno wn) date) unknown) (unknown) (no (unknown) (unknown) PT 18.9 H (units (unkn own) date) unknown) (unknown) (no (unknown) (unknown) PT (units (unkno wn) date) unknown) (unknown) (no (unknown) (unknown) Patient Location: (units (unknown) date) ICU unknown) (unknown) (no (unknown) (unknown) Patient: (units (unkno wn) date) Pascual Padilla unknown) MR#: (unknown) (no (unknown) (unknown) Plt Count 156 (units ( unknown) date) unknown) (unknown) (no (unknown) (unknown) Plt Count (units (unkn own) date) unknown) (unknown) (no (unknown) (unknown) Potassium 3.6 (units ( unknown) date) unknown) (unknown) (no (unknown) (unknown) Potassium (units (unkn own) date) unknown) (unknown) (no (unknown) (unknown) Procalcitonin 4.70 (units (unknown) date) H unknown) (unknown) (no (unknown) (unknown) Procalcitonin (units ( unknown) date) unknown) (unknown) (no (unknown) (unknown) Propofol 1,000 mg (units (unknown) date) in 100 mls @ 2.762 unknown) mls/hr 01/31/22 22:45 01/31/22 23:10 (unknown) (no (unknown) (unknown) Propofol IV 25 (units (unknown) date) mcg/kg/min unknown) (unknown) (no (unknown) (unknown) Protocol (units (unkno wn) date) unknown) (unknown) (no (unknown) (unknown) Provider location (units (unknown) date) (State): [place] unknown) (unknown) (no (unknown) (unknown) Provider: (units (unkn own) date) Oc Pierson MD unknown) (unknown) (no (unknown) (unknown) Pulse Oximetry 100 (units (unknown) date) unknown) (unknown) (no (unknown) (unknown) Pulse Oximetry 81 (units (unknown) date) L unknown) (unknown) (no (unknown) (unknown) Pulse Oximetry 84 (units (unknown) date) L unknown) (unknown) (no (unknown) (unknown) Pulse Oximetry 92 (units (unknown) date) 77 L unknown) (unknown) (no (unknown) (unknown) Pulse Oximetry 94 (units (unknown) date) unknown) (unknown) (no (unknown) (unknown) Pulse Oximetry 96 (units (unknown) date) unknown) (unknown) (no (unknown) (unknown) Pulse Oximetry 97 (units (unknown) date) 95 unknown) (unknown) (no (unknown) (unknown) Pulse Oximetry 97 (units (unknown) date) 96 unknown) (unknown) (no (unknown) (unknown) Pulse Oximetry 98 (units (unknown) date) 95 unknown) (unknown) (no (unknown) (unknown) Pulse Oximetry 98 (units (unknown) date) 97 unknown) (unknown) (no (unknown) (unknown) Pulse Oximetry 98 (units (unknown) date) unknown) (unknown) (no (unknown) (unknown) Pulse Oximetry 99 (units (unknown) date) unknown) (unknown) (no (unknown) (unknown) Pulse Oximetry (units (unknown) date) unknown) (unknown) (no (unknown) (unknown) Pulse Rate 117 H (units (unknown) date) 124 H unknown) (unknown) (no (unknown) (unknown) Pulse Rate 118 H (units (unknown) date) 67 unknown) (unknown) (no (unknown) (unknown) Pulse Rate 119 H (units (unknown) date) 120 H unknown) (unknown) (no (unknown) (unknown) Pulse Rate 119 H (units (unknown) date) unknown) (unknown) (no (unknown) (unknown) Pulse Rate 122 H (units (unknown) date) 116 H unknown) (unknown) (no (unknown) (unknown) Pulse Rate 122 H (units (unknown) date) unknown) (unknown) (no (unknown) (unknown) Pulse Rate 124 H (units (unknown) date) 139 H unknown) (unknown) (no (unknown) (unknown) Pulse Rate 128 H (units (unknown) date) unknown) (unknown) (no (unknown) (unknown) Pulse Rate 143 H (units (unknown) date) unknown) (unknown) (no (unknown) (unknown) Pulse Rate 144 H (units (unknown) date) unknown) (unknown) (no (unknown) (unknown) Pulse Rate 150 H (units (unknown) date) 170 H unknown) (unknown) (no (unknown) (unknown) Pulse Rate 156 H (units (unknown) date) unknown) (unknown) (no (unknown) (unknown) Pulse Rate 162 H (units (unknown) date) unknown) (unknown) (no (unknown) (unknown) Pulse Rate (units (unk nown) date) unknown) (unknown) (no (unknown) (unknown) RBC 4.66 (units (unkno wn) date) unknown) (unknown) (no (unknown) (unknown) RBC Morphology See (units (unknown) date) below unknown) (unknown) (no (unknown) (unknown) RBC Morphology (units (unknown) date) unknown) (unknown) (no (unknown) (unknown) RBC (units (unkno wn) date) unknown) (unknown) (no (unknown) (unknown) RDW 14.0 (units (unkno wn) date) unknown) (unknown) (no (unknown) (unknown) RDW (units (unkno wn) date) unknown) (unknown) (no (unknown) (unknown) Respiratory Rate 0 (units (unknown) date) L unknown) (unknown) (no (unknown) (unknown) Respiratory Rate (units (unknown) date) 22 unknown) (unknown) (no (unknown) (unknown) Respiratory Rate (units (unknown) date) 25 H 42 H unknown) (unknown) (no (unknown) (unknown) Respiratory Rate (units (unknown) date) 25 H unknown) (unknown) (no (unknown) (unknown) Respiratory Rate (units (unknown) date) 30 H unknown) (unknown) (no (unknown) (unknown) Respiratory Rate (units (unknown) date) 31 H unknown) (unknown) (no (unknown) (unknown) Respiratory Rate (units (unknown) date) 35 H unknown) (unknown) (no (unknown) (unknown) Respiratory Rate (units (unknown) date) 37 H unknown) (unknown) (no (unknown) (unknown) Respiratory Rate (units (unknown) date) 39 H 41 H unknown) (unknown) (no (unknown) (unknown) Respiratory Rate (units (unknown) date) 40 H unknown) (unknown) (no (unknown) (unknown) Respiratory Rate (units (unknown) date) 43 H unknown) (unknown) (no (unknown) (unknown) Respiratory Rate (units (unknown) date) 48 H 51 H unknown) (unknown) (no (unknown) (unknown) Respiratory Rate (units (unknown) date) unknown) (unknown) (no (unknown) (unknown) Result Diagrams: (units (unknown) date) unknown) (unknown) (no (unknown) (unknown) SARS-CoV-2 (PCR) (units (unknown) date) Negative unknown) (unknown) (no (unknown) (unknown) SARS-CoV-2 (PCR) (units (unknown) date) unknown) (unknown) (no (unknown) (unknown) Seg Neutrophils % (units (unknown) date) 82.0 H unknown) (unknown) (no (unknown) (unknown) Seg Neutrophils % (units (unknown) date) unknown) (unknown) (no (unknown) (unknown) Septic shock (units (u nknown) date) unknown) (unknown) (no (unknown) (unknown) Signed By: (units (unk nown) date) unknown) (unknown) (no (unknown) (unknown) Smoking Status: (units (unknown) date) Never smoker unknown) (unknown) (no (unknown) (unknown) Social History (units (unknown) date) (Reviewed 01/31/22 unknown) @ 21:45 by Kyleigh Castellanos MD) (unknown) (no (unknown) (unknown) Sodium 135 L (units (u nknown) date) unknown) (unknown) (no (unknown) (unknown) Sodium (units (unkno wn) date) unknown) (unknown) (no (unknown) (unknown) TITRATE ANGI 13.812 (units (unknown) date) mls/hr unknown) (unknown) (no (unknown) (unknown) TITRATE ANGI 16.114 (units (unknown) date) mls/hr unknown) (unknown) (no (unknown) (unknown) 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 (units (unknown) date) Consult Note unknown) (unknown) (no (unknown) (unknown) Temperature 103.5 (units (unknown) date) F H unknown) (unknown) (no (unknown) (unknown) Temperature 103.8 (units (unknown) date) F H unknown) (unknown) (no (unknown) (unknown) Temperature 98.3 F (units (unknown) date) unknown) (unknown) (no (unknown) (unknown) Temperature (units (un known) date) unknown) (unknown) (no (unknown) (unknown) Time Spent With (units (unknown) date) Patient unknown) (unknown) (no (unknown) (unknown) Titration (units (unkn own) date) unknown) (unknown) (no (unknown) (unknown) Total Bilirubin (units (unknown) date) 2.2 H unknown) (unknown) (no (unknown) (unknown) Total Bilirubin (units (unknown) date) unknown) (unknown) (no (unknown) (unknown) Total Counted 100 (units (unknown) date) unknown) (unknown) (no (unknown) (unknown) Total Counted (units ( unknown) date) unknown) (unknown) (no (unknown) (unknown) Total Creatine (units (unknown) date) Kinase 59 unknown) (unknown) (no (unknown) (unknown) Total Creatine (units (unknown) date) Kinase unknown) (unknown) (no (unknown) (unknown) Total Protein 7.6 (units (unknown) date) unknown) (unknown) (no (unknown) (unknown) Total Protein (units ( unknown) date) unknown) (unknown) (no (unknown) (unknown) Trade Name Freq (units (unknown) date) PRN Reason Stop unknown) Dose Admin (unknown) (no (unknown) (unknown) Troponin I 0.608 (units (unknown) date) H* unknown) (unknown) (no (unknown) (unknown) Troponin I 0.924 (units (unknown) date) H* unknown) (unknown) (no (unknown) (unknown) Troponin I (units (unk nown) date) unknown) (unknown) (no (unknown) (unknown) Type 2 diabetes (units (unknown) date) mellitus unknown) (unknown) (no (unknown) (unknown) Ur Culture (units (unk nown) date) Indicated? Specimen unknown) cultured (unknown) (no (unknown) (unknown) Ur Culture (units (unk nown) date) Indicated? unknown) (unknown) (no (unknown) (unknown) Ur Leukocyte (units (u nknown) date) Esterase 2+ H unknown) (unknown) (no (unknown) (unknown) Ur Leukocyte (units (u nknown) date) Esterase unknown) (unknown) (no (unknown) (unknown) Ur Specific (units (un known) date) [place] 1.010 unknown) (unknown) (no (unknown) (unknown) Ur Specific (units (un known) date) [place] unknown) (unknown) (no (unknown) (unknown) Ur Squamous Epith (units (unknown) date) Cells None seen unknown) (unknown) (no (unknown) (unknown) Ur Squamous Epith (units (unknown) date) Cells unknown) (unknown) (no (unknown) (unknown) Urine Appearance (units (unknown) date) Sl cloudy unknown) (unknown) (no (unknown) (unknown) Urine Appearance (units (unknown) date) unknown) (unknown) (no (unknown) (unknown) Urine Bacteria (units (unknown) date) Many (>30) H unknown) (unknown) (no (unknown) (unknown) Urine Bacteria (units (unknown) date) unknown) (unknown) (no (unknown) (unknown) Urine Bilirubin (units (unknown) date) Negative unknown) (unknown) (no (unknown) (unknown) Urine Bilirubin (units (unknown) date) unknown) (unknown) (no (unknown) (unknown) Urine Color Yellow (units (unknown) date) unknown) (unknown) (no (unknown) (unknown) Urine Color (units (un known) date) unknown) (unknown) (no (unknown) (unknown) Urine Glucose (UA) (units (unknown) date) Negative unknown) (unknown) (no (unknown) (unknown) Urine Glucose (UA) (units (unknown) date) unknown) (unknown) (no (unknown) (unknown) Urine Ketones (units ( unknown) date) Negative unknown) (unknown) (no (unknown) (unknown) Urine Ketones (units ( unknown) date) unknown) (unknown) (no (unknown) (unknown) Urine Nitrate (units ( unknown) date) Negative unknown) (unknown) (no (unknown) (unknown) Urine Nitrate (units ( unknown) date) unknown) (unknown) (no (unknown) (unknown) Urine Occult Blood (units (unknown) date) 1+ H unknown) (unknown) (no (unknown) (unknown) Urine Occult Blood (units (unknown) date) unknown) (unknown) (no (unknown) (unknown) Urine Protein 1+ H (units (unknown) date) unknown) (unknown) (no (unknown) (unknown) Urine Protein (units ( unknown) date) unknown) (unknown) (no (unknown) (unknown) Urine RBC 0-1/hpf (units (unknown) date) unknown) (unknown) (no (unknown) (unknown) Urine RBC (units (unkn own) date) unknown) (unknown) (no (unknown) (unknown) Urine Urobilinogen (units (unknown) date) 0.2 unknown) (unknown) (no (unknown) (unknown) Urine Urobilinogen (units (unknown) date) unknown) (unknown) (no (unknown) (unknown) Urine WBC (units (unkn own) date) 30-100/hpf H unknown) (unknown) (no (unknown) (unknown) Urine WBC (units (unkn own) date) unknown) (unknown) (no (unknown) (unknown) Urine pH 5.0 (units (u nknown) date) unknown) (unknown) (no (unknown) (unknown) Urine pH (units (unkno wn) date) unknown) (unknown) (no (unknown) (unknown) Visit Medications (units (unknown) date) (administered) unknown) (unknown) (no (unknown) (unknown) Vital Signs (units (un known) date) unknown) (unknown) (no (unknown) (unknown) WBC 29.1 H (units (unk nown) date) unknown) (unknown) (no (unknown) (unknown) WBC (units (unkno wn) date) unknown) (unknown) (no (unknown) (unknown) [Embedded Image (units (unknown) date) Not Available] unknown) (unknown) (no (unknown) (unknown) abdominal pain - (units (unknown) date) found to have unknown) pyelonephritis in ED. PAtient entered septic (unknown) (no (unknown) (unknown) acute metabolic (units (unknown) date) encephalopathy unknown) (unknown) (no (unknown) (unknown) acute respiratory (units (unknown) date) failure unknown) (unknown) (no (unknown) (unknown) alcohol intake: (units (unknown) date) current unknown) (unknown) (no (unknown) (unknown) amlodipine 10 mg (units (unknown) date) tablet 10 mg PO unknown) DAILY 01/27/18 [History Confirmed 07/13/19] (unknown) (no (unknown) (unknown) chlorthalidone 50 (units (unknown) date) mg tablet 50 mg PO unknown) DAILY 01/27/18 [History Confirmed 07/13/19] (unknown) (no (unknown) (unknown) encephalopahty - (units (unknown) date) now intubated. unknown) Urology called for f/u and possible removal of (unknown) (no (unknown) (unknown) exenatide (units (unkn own) date) microspheres 2 unknown) mg/0.85 mL subcutaneous auto-injector (ByWickr BCise) (unknown) (no (unknown) (unknown) fenofibrate (units (un known) date) nanocrystallized unknown) 145 mg tablet 145 mg PO DAILY 07/05/19 [History (unknown) (no (unknown) (unknown) hours of (units (unkno wn) date) increasing fevers, unknown) fatigue, overall altered mental status, increasing (unknown) (no (unknown) (unknown) household members: (units (unknown) date) spouse unknown) (unknown) (no (unknown) (unknown) insulin glargine (units (unknown) date) 100 unit/mL (3 mL) unknown) subcutaneous pen 26 units SUBCUT DAILY (unknown) (no (unknown) (unknown) losartan 100 mg (units (unknown) date) tablet 100 mg PO unknown) DAILY 01/27/18 [History Confirmed 07/13/19] (unknown) (no (unknown) (unknown) metformin 500 mg (units (unknown) date) tablet 500 mg PO unknown) BID 01/27/18 [History Confirmed 07/13/19] (unknown) (no (unknown) (unknown) oxycodone 5 mg (units (unknown) date) capsule 5 mg PO Q4H unknown) PRN pain #14 caps 07/13/19 [Rx] (unknown) (no (unknown) (unknown) pyelonephritis , (units (unknown) date) possible infected unknown) stent (unknown) (no (unknown) (unknown) rosuvastatin 40 mg (units (unknown) date) tablet 40 mg PO unknown) DAILY 07/05/19 [History Confirmed 07/13/19] (unknown) (no (unknown) (unknown) shock in ED and (units (unknown) date) had worsening SOB unknown) related to IVF resuscitaiton and metabolic (unknown) (no (unknown) (unknown) stent given (units (un known) date) likelyhood on unknown) infected stent. (unknown) (no (unknown) (unknown) stones - s/p stent (units (unknown) date) placement in 2019 unknown) without any f/u in 2 years presents with 12 (unknown) (no (unknown) (unknown) surrogate for exam (units (unknown) date) is primary team unknown) (unknown) (no (unknown) (unknown) tamsulosin 0.4 mg (units (unknown) date) capsule 0.4 mg PO unknown) DAILY #60 caps 07/13/19 [Rx Confirmed (unknown) (no (unknown) (unknown) today; this time (units (unknown) date) is exclusive of unknown) procedural time. Result panel 30 (unknown) (no (unknown) (unknown) (no value) (units (unk nown) date) unknown) (unknown) (no (unknown) (unknown) (past 8 hours): (units (unknown) date) unknown) (unknown) (no (unknown) (unknown) 0.7 MCG/KG/HR (units ( unknown) date) unknown) (unknown) (no (unknown) (unknown) 00:00 (units (unkno wn) date) unknown) (unknown) (no (unknown) (unknown) 07/13/19] (units (unkn own) date) unknown) (unknown) (no (unknown) (unknown) 01/27/18 [History (units (unknown) date) Confirmed 07/13/19] unknown) (unknown) (no (unknown) (unknown) 01/31/22 01/31/22 (units (unknown) date) 01/31/22 unknown) (unknown) (no (unknown) (unknown) 01/31/22 20:00 (units (unknown) date) unknown) (unknown) (no (unknown) (unknown) 01/31/22 (units (unkno wn) date) unknown) (unknown) (no (unknown) (unknown) 02/01/22 0044 (units ( unknown) date) unknown) (unknown) (no (unknown) (unknown) 19:06 01/31/22 (units (unknown) date) unknown) (unknown) (no (unknown) (unknown) 19:19 01/31/22 (units (unknown) date) unknown) (unknown) (no (unknown) (unknown) 19:20 01/31/22 (units (unknown) date) unknown) (unknown) (no (unknown) (unknown) 19:20 (units (unkno wn) date) unknown) (unknown) (no (unknown) (unknown) 19:30 01/31/22 (units (unknown) date) unknown) (unknown) (no (unknown) (unknown) 19:30 (units (unkno wn) date) unknown) (unknown) (no (unknown) (unknown) 2 mg SUBCUT QWEEK (units (unknown) date) 07/05/19 [History unknown) Confirmed 07/13/19] (unknown) (no (unknown) (unknown) 20:00 01/31/22 (units (unknown) date) unknown) (unknown) (no (unknown) (unknown) 20:00 20:00 20:00 (units (unknown) date) unknown) (unknown) (no (unknown) (unknown) 20:14 22:13 22:13 (units (unknown) date) unknown) (unknown) (no (unknown) (unknown) 20:30 01/31/22 (units (unknown) date) unknown) (unknown) (no (unknown) (unknown) 20:30 (units (unkno wn) date) unknown) (unknown) (no (unknown) (unknown) 20:45 01/31/22 (units (unknown) date) unknown) (unknown) (no (unknown) (unknown) 21:07 (units (unkno wn) date) unknown) (unknown) (no (unknown) (unknown) 21:11 01/31/22 (units (unknown) date) unknown) (unknown) (no (unknown) (unknown) 21:15 01/31/22 (units (unknown) date) unknown) (unknown) (no (unknown) (unknown) 21:30 01/31/22 (units (unknown) date) unknown) (unknown) (no (unknown) (unknown) 21:30 (units (unkno wn) date) unknown) (unknown) (no (unknown) (unknown) 21:46 01/31/22 (units (unknown) date) unknown) (unknown) (no (unknown) (unknown) 21:46 (units (unkno wn) date) unknown) (unknown) (no (unknown) (unknown) 22:00 01/31/22 (units (unknown) date) unknown) (unknown) (no (unknown) (unknown) 22:05 (units (unkno wn) date) unknown) (unknown) (no (unknown) (unknown) 22:15 01/31/22 (units (unknown) date) unknown) (unknown) (no (unknown) (unknown) 22:15 (units (unkno wn) date) unknown) (unknown) (no (unknown) (unknown) 22:21 01/31/22 (units (unknown) date) unknown) (unknown) (no (unknown) (unknown) 22:21 (units (unkno wn) date) unknown) (unknown) (no (unknown) (unknown) 22:30 01/31/22 (units (unknown) date) unknown) (unknown) (no (unknown) (unknown) 22:30 (units (unkno wn) date) unknown) (unknown) (no (unknown) (unknown) 22:40 01/31/22 (units (unknown) date) unknown) (unknown) (no (unknown) (unknown) 22:45 01/31/22 (units (unknown) date) unknown) (unknown) (no (unknown) (unknown) 22:45 (units (unkno wn) date) unknown) (unknown) (no (unknown) (unknown) 22:49 01/31/22 (units (unknown) date) unknown) (unknown) (no (unknown) (unknown) 22:50 (units (unkno wn) date) unknown) (unknown) (no (unknown) (unknown) 22:52 01/31/22 (units (unknown) date) unknown) (unknown) (no (unknown) (unknown) 22:55 01/31/22 (units (unknown) date) unknown) (unknown) (no (unknown) (unknown) 23:00 01/31/22 (units (unknown) date) unknown) (unknown) (no (unknown) (unknown) 23:00 (units (unkno wn) date) unknown) (unknown) (no (unknown) (unknown) 23:06 01/31/22 (units (unknown) date) unknown) (unknown) (no (unknown) (unknown) 23:10 01/31/22 (units (unknown) date) unknown) (unknown) (no (unknown) (unknown) 23:10 (units (unkno wn) date) unknown) (unknown) (no (unknown) (unknown) 23:15 (units (unkno wn) date) unknown) (unknown) (no (unknown) (unknown) 23:49 (units (unkno wn) date) unknown) (unknown) (no (unknown) (unknown) 5 MCG/KG/MIN (units (u nknown) date) unknown) (unknown) (no (unknown) (unknown) 71 y.o. 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, hyperlipidemia, prior kidney (unknown) (no (unknown) (unknown) ALT 16 (units (unkno wn) date) unknown) (unknown) (no (unknown) (unknown) ALT (units (unkno wn) date) unknown) (unknown) (no (unknown) (unknown) APTT 31 (units (unkno wn) date) unknown) (unknown) (no (unknown) (unknown) APTT (units (unkno wn) date) unknown) (unknown) (no (unknown) (unknown) AST 31 (units (unkno wn) date) unknown) (unknown) (no (unknown) (unknown) AST (units (unkno wn) date) unknown) (unknown) (no (unknown) (unknown) Administration (units (unknown) date) unknown) (unknown) (no (unknown) (unknown) Age/Sex: 71 / M (units (unknown) date) unknown) (unknown) (no (unknown) (unknown) Albumin 4.2 (units (un known) date) unknown) (unknown) (no (unknown) (unknown) Albumin (units (unkno wn) date) unknown) (unknown) (no (unknown) (unknown) Albumin/Globulin (units (unknown) date) Ratio 1.2 unknown) (unknown) (no (unknown) (unknown) Albumin/Globulin (units (unknown) date) Ratio unknown) (unknown) (no (unknown) (unknown) Alkaline (units (unkno wn) date) Phosphatase 66 unknown) (unknown) (no (unknown) (unknown) Alkaline (units (unkno wn) date) Phosphatase unknown) (unknown) (no (unknown) (unknown) Anisocytosis 1+ H (units (unknown) date) unknown) (unknown) (no (unknown) (unknown) Anisocytosis (units (u nknown) date) unknown) (unknown) (no (unknown) (unknown) Assessment + Plan (units (unknown) date) narrative: unknown) (unknown) (no (unknown) (unknown) Assessment + Plan (units (unknown) date) unknown) (unknown) (no (unknown) (unknown) BUN 22 H (units (unkno wn) date) unknown) (unknown) (no (unknown) (unknown) BUN (units (unkno wn) date) unknown) (unknown) (no (unknown) (unknown) BUN/Creatinine (units (unknown) date) Ratio 13.8 unknown) (unknown) (no (unknown) (unknown) BUN/Creatinine (units (unknown) date) Ratio unknown) (unknown) (no (unknown) (unknown) Band Neutrophils % (units (unknown) date) 12.0 H unknown) (unknown) (no (unknown) (unknown) Band Neutrophils % (units (unknown) date) unknown) (unknown) (no (unknown) (unknown) Baso # (Auto) Not (units (unknown) date) Reportable unknown) (unknown) (no (unknown) (unknown) Baso # (Auto) (units ( unknown) date) unknown) (unknown) (no (unknown) (unknown) Baso % (Auto) Not (units (unknown) date) Reportable unknown) (unknown) (no (unknown) (unknown) Baso % (Auto) (units ( unknown) date) unknown) (unknown) (no (unknown) (unknown) Blood Pressure (units (unknown) date) 115/69 120/75 unknown) 128/77 (unknown) (no (unknown) (unknown) Blood Pressure (units (unknown) date) 127/80 unknown) (unknown) (no (unknown) (unknown) Blood Pressure (units (unknown) date) 128/76 160/104 H unknown) (unknown) (no (unknown) (unknown) Blood Pressure (units (unknown) date) 132/79 unknown) (unknown) (no (unknown) (unknown) Blood Pressure (units (unknown) date) 134/75 139/80 unknown) (unknown) (no (unknown) (unknown) Blood Pressure (units (unknown) date) 136/78 unknown) (unknown) (no (unknown) (unknown) Blood Pressure (units (unknown) date) 137/76 unknown) (unknown) (no (unknown) (unknown) Blood Pressure (units (unknown) date) 138/78 146/84 H unknown) (unknown) (no (unknown) (unknown) Blood Pressure (units (unknown) date) 147/79 H unknown) (unknown) (no (unknown) (unknown) Blood Pressure (units (unknown) date) 150/100 H unknown) (unknown) (no (unknown) (unknown) Blood Pressure (units (unknown) date) 153/77 H 128/76 unknown) (unknown) (no (unknown) (unknown) Blood Pressure (units (unknown) date) 153/93 H 113/68 unknown) (unknown) (no (unknown) (unknown) Blood Pressure (units (unknown) date) 159/99 H 139/80 unknown) (unknown) (no (unknown) (unknown) Blood Pressure (units (unknown) date) 174/114 H unknown) (unknown) (no (unknown) (unknown) Blood Pressure (units (unknown) date) 206/130 H 170/100 H unknown) (unknown) (no (unknown) (unknown) CK-MB (CK-2) Rel (units (unknown) date) Index TNP unknown) (unknown) (no (unknown) (unknown) CK-MB (CK-2) Rel (units (unknown) date) Index unknown) (unknown) (no (unknown) (unknown) CK-MB (CK-2) TNP (units (unknown) date) unknown) (unknown) (no (unknown) (unknown) CK-MB (CK-2) (units (u nknown) date) unknown) (unknown) (no (unknown) (unknown) Calcium 8.1 L (units ( unknown) date) unknown) (unknown) (no (unknown) (unknown) Calcium (units (unkno wn) date) unknown) (unknown) (no (unknown) (unknown) Carbon Dioxide 23 (units (unknown) date) unknown) (unknown) (no (unknown) (unknown) Carbon Dioxide (units (unknown) date) unknown) (unknown) (no (unknown) (unknown) Chief complaint: (units (unknown) date) Vomiting, Stomach unknown) cramps, SOB (unknown) (no (unknown) (unknown) Chloride 96 L (units ( unknown) date) unknown) (unknown) (no (unknown) (unknown) Chloride (units (unkno wn) date) unknown) (unknown) (no (unknown) (unknown) Confirmed (units (unkn own) date) 07/13/19] unknown) (unknown) (no (unknown) (unknown) Consent obtained (units (unknown) date) for unknown) tele-chicken boner care: Yes (unknown) (no (unknown) (unknown) Consult details (units (unknown) date) unknown) (unknown) (no (unknown) (unknown) Creatinine 1.60 H (units (unknown) date) unknown) (unknown) (no (unknown) (unknown) Creatinine (units (unk nown) date) unknown) (unknown) (no (unknown) (unknown) Critical Care (units ( unknown) date) time: unknown) (unknown) (no (unknown) (unknown) Current (units (unkno wn) date) Medications unknown) (unknown) (no (unknown) (unknown) D-Dimer 821 H (units ( unknown) date) unknown) (unknown) (no (unknown) (unknown) D-Dimer (units (unkno wn) date) unknown) (unknown) (no (unknown) (unknown) : 1950 (units (unknown) date) Acct:[id number] unknown) (unknown) (no (unknown) (unknown) Date Patient Seen: (units (unknown) date) 02/01/22 unknown) (unknown) (no (unknown) (unknown) Date of Service: (units (unknown) date) 01/31/22 unknown) (unknown) (no (unknown) (unknown) Eos % (Auto) Not (units (unknown) date) Reportable unknown) (unknown) (no (unknown) (unknown) Eos % (Auto) (units (u nknown) date) unknown) (unknown) (no (unknown) (unknown) Estimated GFR 45 L (units (unknown) date) unknown) (unknown) (no (unknown) (unknown) Estimated GFR (units ( unknown) date) unknown) (unknown) (no (unknown) (unknown) Exam Narrative: (units (unknown) date) unknown) (unknown) (no (unknown) (unknown) Exam (units (unkno wn) date) unknown) (unknown) (no (unknown) (unknown) Fentanyl 1,000 (units (unknown) date) mcg/ Dextrose 250 unknown) mls @ 16.114 mls/hr 01/31/22 23:15 02/01/22 (unknown) (no (unknown) (unknown) Generic Name Dose (units (unknown) date) Route Start Last unknown) Admin (unknown) (no (unknown) (unknown) Globulin 3.4 (units (u nknown) date) unknown) (unknown) (no (unknown) (unknown) Globulin (units (unkno wn) date) unknown) (unknown) (no (unknown) (unknown) Glucose 262 H (units ( unknown) date) unknown) (unknown) (no (unknown) (unknown) Glucose (units (unkno wn) date) unknown) (unknown) (no (unknown) (unknown) Hct 38.2 L (units (unk nown) date) unknown) (unknown) (no (unknown) (unknown) Hct (units (unkno wn) date) unknown) (unknown) (no (unknown) (unknown) Hgb 13.3 L (units (unk nown) date) unknown) (unknown) (no (unknown) (unknown) Hgb (units (unkno wn) date) unknown) (unknown) (no (unknown) (unknown) History of Present (units (unknown) date) Illness unknown) (unknown) (no (unknown) (unknown) History of kidney (units (unknown) date) stones unknown) (unknown) (no (unknown) (unknown) Home Medications (units (unknown) date) unknown) (unknown) (no (unknown) (unknown) Hyperlipidemia (units (unknown) date) unknown) (unknown) (no (unknown) (unknown) Hypertension (units (u nknown) date) unknown) (unknown) (no (unknown) (unknown) I spent a total of (units (unknown) date) [] minutes of unknown) critical care time on this patient's care (unknown) (no (unknown) (unknown) IF CAMERA (units (unkn own) date) ACTIVATED, patient unknown) seen via real-time interactive audiovisual (unknown) (no (unknown) (unknown) INR 1.6 H (units (unkn own) date) unknown) (unknown) (no (unknown) (unknown) INR (units (unkno wn) date) unknown) (unknown) (no (unknown) (unknown) IV 0.7 mcg/kg/hr (units (unknown) date) unknown) (unknown) (no (unknown) (unknown) [facility] (units (unknown) date) [address] unknown) [place] [address] (unknown) (no (unknown) (unknown) Kidney stones (units ( unknown) date) unknown) (unknown) (no (unknown) (unknown) LTVV (units (unkno wn) date) unknown) (unknown) (no (unknown) (unknown) Laboratory Results (units (unknown) date) - last 24 hr unknown) (unknown) (no (unknown) (unknown) Labs (units (unkno wn) date) unknown) (unknown) (no (unknown) (unknown) Labs: (units (unkno wn) date) unknown) (unknown) (no (unknown) (unknown) Lactate 3.0 H (units ( unknown) date) unknown) (unknown) (no (unknown) (unknown) Lactate 5.3 H* (units (unknown) date) unknown) (unknown) (no (unknown) (unknown) Lactate (units (unkno wn) date) unknown) (unknown) (no (unknown) (unknown) Lactic acidosis (units (unknown) date) unknown) (unknown) (no (unknown) (unknown) Lymph # (Auto) Not (units (unknown) date) Reportable unknown) (unknown) (no (unknown) (unknown) Lymph # (Auto) (units (unknown) date) unknown) (unknown) (no (unknown) (unknown) Lymph % (Auto) Not (units (unknown) date) Reportable unknown) (unknown) (no (unknown) (unknown) Lymph % (Auto) (units (unknown) date) unknown) (unknown) (no (unknown) (unknown) Lymphocytes % (units ( unknown) date) (Manual) 5.0 L unknown) (unknown) (no (unknown) (unknown) Lymphocytes % (units ( unknown) date) (Manual) unknown) (unknown) (no (unknown) (unknown) [id number] (units (unk nown) date) unknown) (unknown) (no (unknown) (unknown) MCH 28.5 (units (unkno wn) date) unknown) (unknown) (no (unknown) (unknown) MCH (units (unkno wn) date) unknown) (unknown) (no (unknown) (unknown) MCHC 34.8 (units (unkn own) date) unknown) (unknown) (no (unknown) (unknown) MCHC (units (unkno wn) date) unknown) (unknown) (no (unknown) (unknown) MCV 81.8 (units (unkno wn) date) unknown) (unknown) (no (unknown) (unknown) MCV (units (unkno wn) date) unknown) (unknown) (no (unknown) (unknown) Medical History (units (unknown) date) (Updated 01/31/22 @ unknown) 23:30 by Kyleigh Castellanos MD) (unknown) (no (unknown) (unknown) Medications: (units (u nknown) date) unknown) (unknown) (no (unknown) (unknown) [place] # (Auto) Not (units (unknown) date) Reportable unknown) (unknown) (no (unknown) (unknown) [place] # (Auto) (units ( unknown) date) unknown) (unknown) (no (unknown) (unknown) [place] % (Auto) Not (units (unknown) date) Reportable unknown) (unknown) (no (unknown) (unknown) [place] % (Auto) (units ( unknown) date) unknown) (unknown) (no (unknown) (unknown) Monocytes % (units (un known) date) (Manual) 1.0 L unknown) (unknown) (no (unknown) (unknown) Monocytes % (units (un known) date) (Manual) unknown) (unknown) (no (unknown) (unknown) NPO for now (units (un known) date) unknown) (unknown) (no (unknown) (unknown) Narrative (units (unkn own) date) unknown) (unknown) (no (unknown) (unknown) Narrative: (units (unk nown) date) unknown) (unknown) (no (unknown) (unknown) Neut % (Auto) Not (units (unknown) date) Reportable unknown) (unknown) (no (unknown) (unknown) Neut % (Auto) (units ( unknown) date) unknown) (unknown) (no (unknown) (unknown) Neutrophils # (units ( unknown) date) (Manual) 08477 H unknown) (unknown) (no (unknown) (unknown) Neutrophils # (units ( unknown) date) (Manual) unknown) (unknown) (no (unknown) (unknown) Objective (units (unkn own) date) unknown) (unknown) (no (unknown) (unknown) Other (units (unkno wn) date) participants/roles: unknown) RN, 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 (unknown) (no (unknown) (unknown) Oxygen Delivery (units (unknown) date) Method Room Air unknown) Room Air (unknown) (no (unknown) (unknown) Oxygen Delivery (units (unknown) date) Method Room Air unknown) (unknown) (no (unknown) (unknown) Oxygen Delivery (units (unknown) date) Method unknown) (unknown) (no (unknown) (unknown) PFSH (units (unkno wn) date) unknown) (unknown) (no (unknown) (unknown) PT 18.9 H (units (unkn own) date) unknown) (unknown) (no (unknown) (unknown) PT (units (unkno wn) date) unknown) (unknown) (no (unknown) (unknown) Patient Location: (units (unknown) date) ICU unknown) (unknown) (no (unknown) (unknown) Patient: (units (unkno wn) date) Pascual Padilla Robert unknown) MR#: (unknown) (no (unknown) (unknown) Plt Count 156 (units ( unknown) date) unknown) (unknown) (no (unknown) (unknown) Plt Count (units (unkn own) date) unknown) (unknown) (no (unknown) (unknown) Potassium 3.6 (units ( unknown) date) unknown) (unknown) (no (unknown) (unknown) Potassium (units (unkn own) date) unknown) (unknown) (no (unknown) (unknown) Procalcitonin 4.70 (units (unknown) date) H unknown) (unknown) (no (unknown) (unknown) Procalcitonin (units ( unknown) date) unknown) (unknown) (no (unknown) (unknown) Propofol 1,000 mg (units (unknown) date) in 100 mls @ 2.762 unknown) mls/hr 01/31/22 22:45 01/31/22 23:10 (unknown) (no (unknown) (unknown) Propofol IV 25 (units (unknown) date) mcg/kg/min unknown) (unknown) (no (unknown) (unknown) Protocol (units (unkno wn) date) unknown) (unknown) (no (unknown) (unknown) Provider location (units (unknown) date) (State): [place] unknown) (unknown) (no (unknown) (unknown) Provider: (units (unkn own) date) Oc Pierson MD unknown) (unknown) (no (unknown) (unknown) Pulse Oximetry 100 (units (unknown) date) unknown) (unknown) (no (unknown) (unknown) Pulse Oximetry 81 (units (unknown) date) L unknown) (unknown) (no (unknown) (unknown) Pulse Oximetry 84 (units (unknown) date) L unknown) (unknown) (no (unknown) (unknown) Pulse Oximetry 92 (units (unknown) date) 77 L unknown) (unknown) (no (unknown) (unknown) Pulse Oximetry 94 (units (unknown) date) unknown) (unknown) (no (unknown) (unknown) Pulse Oximetry 96 (units (unknown) date) unknown) (unknown) (no (unknown) (unknown) Pulse Oximetry 97 (units (unknown) date) 95 unknown) (unknown) (no (unknown) (unknown) Pulse Oximetry 97 (units (unknown) date) 96 unknown) (unknown) (no (unknown) (unknown) Pulse Oximetry 98 (units (unknown) date) 95 unknown) (unknown) (no (unknown) (unknown) Pulse Oximetry 98 (units (unknown) date) 97 unknown) (unknown) (no (unknown) (unknown) Pulse Oximetry 98 (units (unknown) date) unknown) (unknown) (no (unknown) (unknown) Pulse Oximetry 99 (units (unknown) date) unknown) (unknown) (no (unknown) (unknown) Pulse Oximetry (units (unknown) date) unknown) (unknown) (no (unknown) (unknown) Pulse Rate 117 H (units (unknown) date) 124 H unknown) (unknown) (no (unknown) (unknown) Pulse Rate 118 H (units (unknown) date) 67 unknown) (unknown) (no (unknown) (unknown) Pulse Rate 119 H (units (unknown) date) 120 H unknown) (unknown) (no (unknown) (unknown) Pulse Rate 119 H (units (unknown) date) unknown) (unknown) (no (unknown) (unknown) Pulse Rate 122 H (units (unknown) date) 116 H unknown) (unknown) (no (unknown) (unknown) Pulse Rate 122 H (units (unknown) date) unknown) (unknown) (no (unknown) (unknown) Pulse Rate 124 H (units (unknown) date) 139 H unknown) (unknown) (no (unknown) (unknown) Pulse Rate 128 H (units (unknown) date) unknown) (unknown) (no (unknown) (unknown) Pulse Rate 143 H (units (unknown) date) unknown) (unknown) (no (unknown) (unknown) Pulse Rate 144 H (units (unknown) date) unknown) (unknown) (no (unknown) (unknown) Pulse Rate 150 H (units (unknown) date) 170 H unknown) (unknown) (no (unknown) (unknown) Pulse Rate 156 H (units (unknown) date) unknown) (unknown) (no (unknown) (unknown) Pulse Rate 162 H (units (unknown) date) unknown) (unknown) (no (unknown) (unknown) Pulse Rate (units (unk nown) date) unknown) (unknown) (no (unknown) (unknown) RBC 4.66 (units (unkno wn) date) unknown) (unknown) (no (unknown) (unknown) RBC Morphology See (units (unknown) date) below unknown) (unknown) (no (unknown) (unknown) RBC Morphology (units (unknown) date) unknown) (unknown) (no (unknown) (unknown) RBC (units (unkno wn) date) unknown) (unknown) (no (unknown) (unknown) RDW 14.0 (units (unkno wn) date) unknown) (unknown) (no (unknown) (unknown) RDW (units (unkno wn) date) unknown) (unknown) (no (unknown) (unknown) Respiratory Rate 0 (units (unknown) date) L unknown) (unknown) (no (unknown) (unknown) Respiratory Rate (units (unknown) date) 22 unknown) (unknown) (no (unknown) (unknown) Respiratory Rate (units (unknown) date) 25 H 42 H unknown) (unknown) (no (unknown) (unknown) Respiratory Rate (units (unknown) date) 25 H unknown) (unknown) (no (unknown) (unknown) Respiratory Rate (units (unknown) date) 30 H unknown) (unknown) (no (unknown) (unknown) Respiratory Rate (units (unknown) date) 31 H unknown) (unknown) (no (unknown) (unknown) Respiratory Rate (units (unknown) date) 35 H unknown) (unknown) (no (unknown) (unknown) Respiratory Rate (units (unknown) date) 37 H unknown) (unknown) (no (unknown) (unknown) Respiratory Rate (units (unknown) date) 39 H 41 H unknown) (unknown) (no (unknown) (unknown) Respiratory Rate (units (unknown) date) 40 H unknown) (unknown) (no (unknown) (unknown) Respiratory Rate (units (unknown) date) 43 H unknown) (unknown) (no (unknown) (unknown) Respiratory Rate (units (unknown) date) 48 H 51 H unknown) (unknown) (no (unknown) (unknown) Respiratory Rate (units (unknown) date) unknown) (unknown) (no (unknown) (unknown) Result Diagrams: (units (unknown) date) unknown) (unknown) (no (unknown) (unknown) SARS-CoV-2 (PCR) (units (unknown) date) Negative unknown) (unknown) (no (unknown) (unknown) SARS-CoV-2 (PCR) (units (unknown) date) unknown) (unknown) (no (unknown) (unknown) Seg Neutrophils % (units (unknown) date) 82.0 H unknown) (unknown) (no (unknown) (unknown) Seg Neutrophils % (units (unknown) date) unknown) (unknown) (no (unknown) (unknown) Septic shock (units (u nknown) date) unknown) (unknown) (no (unknown) (unknown) Signed (units (unkno wn) date) By:<Electronically unknown) signed by Oc Pierson MD> (unknown) (no (unknown) (unknown) Smoking Status: (units (unknown) date) Never smoker unknown) (unknown) (no (unknown) (unknown) Social History (units (unknown) date) (Reviewed 01/31/22 unknown) @ 21:45 by Kyleigh Castellanos MD) (unknown) (no (unknown) (unknown) Sodium 135 L (units (u nknown) date) unknown) (unknown) (no (unknown) (unknown) Sodium (units (unkno wn) date) unknown) (unknown) (no (unknown) (unknown) TITRATE ANGI 13.812 (units (unknown) date) mls/hr unknown) (unknown) (no (unknown) (unknown) TITRATE ANGI 16.114 (units (unknown) date) mls/hr unknown) (unknown) (no (unknown) (unknown) TTE (units (unkno wn) date) unknown) (unknown) (no (unknown) (unknown) 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 (units (unknown) date) Consult Note unknown) (unknown) (no (unknown) (unknown) Temperature 103.5 (units (unknown) date) F H unknown) (unknown) (no (unknown) (unknown) Temperature 103.8 (units (unknown) date) F H unknown) (unknown) (no (unknown) (unknown) Temperature 98.3 F (units (unknown) date) unknown) (unknown) (no (unknown) (unknown) Temperature (units (un known) date) unknown) (unknown) (no (unknown) (unknown) Time Spent With (units (unknown) date) Patient unknown) (unknown) (no (unknown) (unknown) Titration (units (unkn own) date) unknown) (unknown) (no (unknown) (unknown) Total Bilirubin (units (unknown) date) 2.2 H unknown) (unknown) (no (unknown) (unknown) Total Bilirubin (units (unknown) date) unknown) (unknown) (no (unknown) (unknown) Total Counted 100 (units (unknown) date) unknown) (unknown) (no (unknown) (unknown) Total Counted (units ( unknown) date) unknown) (unknown) (no (unknown) (unknown) Total Creatine (units (unknown) date) Kinase 59 unknown) (unknown) (no (unknown) (unknown) Total Creatine (units (unknown) date) Kinase unknown) (unknown) (no (unknown) (unknown) Total Protein 7.6 (units (unknown) date) unknown) (unknown) (no (unknown) (unknown) Total Protein (units ( unknown) date) unknown) (unknown) (no (unknown) (unknown) Trade Name Freq (units (unknown) date) PRN Reason Stop unknown) Dose Admin (unknown) (no (unknown) (unknown) Troponin I 0.608 (units (unknown) date) H* unknown) (unknown) (no (unknown) (unknown) Troponin I 0.924 (units (unknown) date) H* unknown) (unknown) (no (unknown) (unknown) Troponin I (units (unk nown) date) unknown) (unknown) (no (unknown) (unknown) Type 2 diabetes (units (unknown) date) mellitus unknown) (unknown) (no (unknown) (unknown) Ur Culture (units (unk nown) date) Indicated? Specimen unknown) cultured (unknown) (no (unknown) (unknown) Ur Culture (units (unk nown) date) Indicated? unknown) (unknown) (no (unknown) (unknown) Ur Leukocyte (units (u nknown) date) Esterase 2+ H unknown) (unknown) (no (unknown) (unknown) Ur Leukocyte (units (u nknown) date) Esterase unknown) (unknown) (no (unknown) (unknown) Ur Specific (units (un known) date) [place] 1.010 unknown) (unknown) (no (unknown) (unknown) Ur Specific (units (un known) date) [place] unknown) (unknown) (no (unknown) (unknown) Ur Squamous Epith (units (unknown) date) Cells None seen unknown) (unknown) (no (unknown) (unknown) Ur Squamous Epith (units (unknown) date) Cells unknown) (unknown) (no (unknown) (unknown) Urine Appearance (units (unknown) date) Sl cloudy unknown) (unknown) (no (unknown) (unknown) Urine Appearance (units (unknown) date) unknown) (unknown) (no (unknown) (unknown) Urine Bacteria (units (unknown) date) Many (>30) H unknown) (unknown) (no (unknown) (unknown) Urine Bacteria (units (unknown) date) unknown) (unknown) (no (unknown) (unknown) Urine Bilirubin (units (unknown) date) Negative unknown) (unknown) (no (unknown) (unknown) Urine Bilirubin (units (unknown) date) unknown) (unknown) (no (unknown) (unknown) Urine Color Yellow (units (unknown) date) unknown) (unknown) (no (unknown) (unknown) Urine Color (units (un known) date) unknown) (unknown) (no (unknown) (unknown) Urine Glucose (UA) (units (unknown) date) Negative unknown) (unknown) (no (unknown) (unknown) Urine Glucose (UA) (units (unknown) date) unknown) (unknown) (no (unknown) (unknown) Urine Ketones (units ( unknown) date) Negative unknown) (unknown) (no (unknown) (unknown) Urine Ketones (units ( unknown) date) unknown) (unknown) (no (unknown) (unknown) Urine Nitrate (units ( unknown) date) Negative unknown) (unknown) (no (unknown) (unknown) Urine Nitrate (units ( unknown) date) unknown) (unknown) (no (unknown) (unknown) Urine Occult Blood (units (unknown) date) 1+ H unknown) (unknown) (no (unknown) (unknown) Urine Occult Blood (units (unknown) date) unknown) (unknown) (no (unknown) (unknown) Urine Protein 1+ H (units (unknown) date) unknown) (unknown) (no (unknown) (unknown) Urine Protein (units ( unknown) date) unknown) (unknown) (no (unknown) (unknown) Urine RBC 0-1/hpf (units (unknown) date) unknown) (unknown) (no (unknown) (unknown) Urine RBC (units (unkn own) date) unknown) (unknown) (no (unknown) (unknown) Urine Urobilinogen (units (unknown) date) 0.2 unknown) (unknown) (no (unknown) (unknown) Urine Urobilinogen (units (unknown) date) unknown) (unknown) (no (unknown) (unknown) Urine WBC (units (unkn own) date) 30-100/hpf H unknown) (unknown) (no (unknown) (unknown) Urine WBC (units (unkn own) date) unknown) (unknown) (no (unknown) (unknown) Urine pH 5.0 (units (u nknown) date) unknown) (unknown) (no (unknown) (unknown) Urine pH (units (unkno wn) date) unknown) (unknown) (no (unknown) (unknown) Visit Medications (units (unknown) date) (administered) unknown) (unknown) (no (unknown) (unknown) Vital Signs (units (un known) date) unknown) (unknown) (no (unknown) (unknown) WBC 29.1 H (units (unk nown) date) unknown) (unknown) (no (unknown) (unknown) WBC (units (unkno wn) date) unknown) (unknown) (no (unknown) (unknown) [Embedded Image (units (unknown) date) Not Available] unknown) (unknown) (no (unknown) (unknown) abdominal pain - (units (unknown) date) found to have unknown) pyelonephritis in ED. PAtient entered septic (unknown) (no (unknown) (unknown) acute metabolic (units (unknown) date) encephalopathy unknown) (unknown) (no (unknown) (unknown) acute renal (units (un known) date) failure unknown) (unknown) (no (unknown) (unknown) acute respiratory (units (unknown) date) failure unknown) (unknown) (no (unknown) (unknown) alcohol intake: (units (unknown) date) current unknown) (unknown) (no (unknown) (unknown) amlodipine 10 mg (units (unknown) date) tablet 10 mg PO unknown) DAILY 01/27/18 [History Confirmed 07/13/19] (unknown) (no (unknown) (unknown) bandemia (units (unkno wn) date) unknown) (unknown) (no (unknown) (unknown) chlorthalidone 50 (units (unknown) date) mg tablet 50 mg PO unknown) DAILY 01/27/18 [History Confirmed 07/13/19] (unknown) (no (unknown) (unknown) communication: (units (unknown) date) Camera activated unknown) (unknown) (no (unknown) (unknown) continued (units (unkn own) date) unknown) (unknown) (no (unknown) (unknown) dvt ppx (units (unkno wn) date) unknown) (unknown) (no (unknown) (unknown) empric abx - (units (u nknown) date) cefepime/vancomcin, unknown) given findings of aspiration flagyl can b (unknown) (no (unknown) (unknown) encephalopahty - (units (unknown) date) now intubated. unknown) Urology called for f/u and possible removal of (unknown) (no (unknown) (unknown) exenatide (units (unkn own) date) microspheres 2 unknown) mg/0.85 mL subcutaneous auto-injector (ByWickr BCise) (unknown) (no (unknown) (unknown) f/u reddy cx (units (unk nown) date) unknown) (unknown) (no (unknown) (unknown) f/u urology (units (un known) date) unknown) (unknown) (no (unknown) (unknown) fenofibrate (units (un known) date) nanocrystallized unknown) 145 mg tablet 145 mg PO DAILY 07/05/19 [History (unknown) (no (unknown) (unknown) hours of (units (unkno wn) date) increasing fevers, unknown) fatigue, overall altered mental status, increasing (unknown) (no (unknown) (unknown) household members: (units (unknown) date) spouse unknown) (unknown) (no (unknown) (unknown) insulin glargine (units (unknown) date) 100 unit/mL (3 mL) unknown) subcutaneous pen 26 units SUBCUT DAILY (unknown) (no (unknown) (unknown) losartan 100 mg (units (unknown) date) tablet 100 mg PO unknown) DAILY 01/27/18 [History Confirmed 07/13/19] (unknown) (no (unknown) (unknown) map goal >65 (units (u nknown) date) unknown) (unknown) (no (unknown) (unknown) metformin 500 mg (units (unknown) date) tablet 500 mg PO unknown) BID 01/27/18 [History Confirmed 07/13/19] (unknown) (no (unknown) (unknown) monitor UO (units (unk nown) date) unknown) (unknown) (no (unknown) (unknown) oxycodone 5 mg (units (unknown) date) capsule 5 mg PO Q4H unknown) PRN pain #14 caps 07/13/19 [Rx] (unknown) (no (unknown) (unknown) phenylephrin adn (units (unknown) date) vasopressin 0 was unknown) very tachycardic in ED, likely related to (unknown) (no (unknown) (unknown) popssible probable (units (unknown) date) gram neg pna from unknown) aspiration (unknown) (no (unknown) (unknown) pyelonephritis , (units (unknown) date) possible infected unknown) stent (unknown) (no (unknown) (unknown) rosuvastatin 40 mg (units (unknown) date) tablet 40 mg PO unknown) DAILY 07/05/19 [History Confirmed 07/13/19] (unknown) (no (unknown) (unknown) shock in ED and (units (unknown) date) had worsening SOB unknown) related to IVF resuscitaiton and metabolic (unknown) (no (unknown) (unknown) stent given (units (un known) date) likelyhood on unknown) infected stent. (unknown) (no (unknown) (unknown) stones - s/p stent (units (unknown) date) placement in 2019 unknown) without any f/u in 2 years presents with 12 (unknown) (no (unknown) (unknown) surrogate for exam (units (unknown) date) is primary team unknown) (unknown) (no (unknown) (unknown) tamsulosin 0.4 mg (units (unknown) date) capsule 0.4 mg PO unknown) DAILY #60 caps 07/13/19 [Rx Confirmed (unknown) (no (unknown) (unknown) today; this time (units (unknown) date) is exclusive of unknown) procedural time. (unknown) (no (unknown) (unknown) total Critical (units (unknown) date) care time = 74 min unknown) (unknown) (no (unknown) (unknown) trend ABG (units (unkn own) date) unknown) (unknown) (no (unknown) (unknown) trend LA (units (unkno wn) date) unknown) (unknown) (no (unknown) (unknown) trend bmp (units (unkn own) date) unknown) (unknown) (no (unknown) (unknown) trend cbc (units (unkn own) date) unknown) (unknown) (no (unknown) (unknown) udnersedation , (units (unknown) date) but will focus on unknown) less arrthymogenic agents for now (unknown) (no (unknown) (unknown) vent/sedation (units ( unknown) date) bundle unknown) (unknown) (no (unknown) (unknown) wean down fio2 (units (unknown) date) unknown) Result panel 31 (unknown) (no (unknown) (unknown) (no value) (units (unk nown) date) unknown) (unknown) (no (unknown) (unknown) ([place] BCise) (units (unknown) date) unknown) (unknown) (no (unknown) (unknown) (past 8 hours): (units (unknown) date) unknown) (unknown) (no (unknown) (unknown) * Patient was (units ( unknown) date) initially started unknown) on IV ceftriaxone and Flagyl (unknown) (no (unknown) (unknown) * This is been (units (unknown) date) changed to IV unknown) cefepime and IV vanco, Flagyl will be maintained (unknown) (no (unknown) (unknown) * (units (unkno wn) date) unknown) (unknown) (no (unknown) (unknown) 0.6 this is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 (unknown) Total Creatine (units (unknown) date) Kinase 59 unknown) (unknown) (no (unknown) (unknown) Total Creatine (units (unknown) date) Kinase unknown) (unknown) (no (unknown) (unknown) Total Protein 7.6 (units (unknown) date) unknown) (unknown) (no (unknown) (unknown) Total Protein (units ( unknown) date) unknown) (unknown) (no (unknown) (unknown) Troponin I 0.608 (units (unknown) date) H* unknown) (unknown) (no (unknown) (unknown) Troponin I 0.924 (units (unknown) date) H* unknown) (unknown) (no (unknown) (unknown) Troponin I (units (unk nown) date) unknown) (unknown) (no (unknown) (unknown) Tylenol. And then (units (unknown) date) a few minutes later unknown) he had an episode of emesis but then (unknown) (no (unknown) (unknown) Type 2 diabetes (units (unknown) date) mellitus unknown) (unknown) (no (unknown) (unknown) Ur Culture (units (unk nown) date) Indicated? Specimen unknown) cultured (unknown) (no (unknown) (unknown) Ur Culture (units (unk nown) date) Indicated? unknown) (unknown) (no (unknown) (unknown) Ur Leukocyte (units (u nknown) date) Esterase 2+ H unknown) (unknown) (no (unknown) (unknown) Ur Leukocyte (units (u nknown) date) Esterase unknown) (unknown) (no (unknown) (unknown) Ur Specific (units (un known) date) [place] 1.010 unknown) (unknown) (no (unknown) (unknown) Ur Specific (units (un known) date) [place] unknown) (unknown) (no (unknown) (unknown) Ur Squamous Epith (units (unknown) date) Cells None seen unknown) (unknown) (no (unknown) (unknown) Ur Squamous Epith (units (unknown) date) Cells unknown) (unknown) (no (unknown) (unknown) Urine Appearance (units (unknown) date) Sl cloudy unknown) (unknown) (no (unknown) (unknown) Urine Appearance (units (unknown) date) unknown) (unknown) (no (unknown) (unknown) Urine Bacteria (units (unknown) date) Many (>30) H unknown) (unknown) (no (unknown) (unknown) Urine Bacteria (units (unknown) date) unknown) (unknown) (no (unknown) (unknown) Urine Bilirubin (units (unknown) date) Negative unknown) (unknown) (no (unknown) (unknown) Urine Bilirubin (units (unknown) date) unknown) (unknown) (no (unknown) (unknown) Urine Color Yellow (units (unknown) date) unknown) (unknown) (no (unknown) (unknown) Urine Color (units (un known) date) unknown) (unknown) (no (unknown) (unknown) Urine Glucose (UA) (units (unknown) date) Negative unknown) (unknown) (no (unknown) (unknown) Urine Glucose (UA) (units (unknown) date) unknown) (unknown) (no (unknown) (unknown) Urine Ketones (units ( unknown) date) Negative unknown) (unknown) (no (unknown) (unknown) Urine Ketones (units ( unknown) date) unknown) (unknown) (no (unknown) (unknown) Urine Nitrate (units ( unknown) date) Negative unknown) (unknown) (no (unknown) (unknown) Urine Nitrate (units ( unknown) date) unknown) (unknown) (no (unknown) (unknown) Urine Occult Blood (units (unknown) date) 1+ H unknown) (unknown) (no (unknown) (unknown) Urine Occult Blood (units (unknown) date) unknown) (unknown) (no (unknown) (unknown) Urine Protein 1+ H (units (unknown) date) unknown) (unknown) (no (unknown) (unknown) Urine Protein (units ( unknown) date) unknown) (unknown) (no (unknown) (unknown) Urine RBC 0-1/hpf (units (unknown) date) unknown) (unknown) (no (unknown) (unknown) Urine RBC (units (unkn own) date) unknown) (unknown) (no (unknown) (unknown) Urine Urobilinogen (units (unknown) date) 0.2 unknown) (unknown) (no (unknown) (unknown) Urine Urobilinogen (units (unknown) date) unknown) (unknown) (no (unknown) (unknown) Urine WBC (units (unkn own) date) 30-100/hpf H unknown) (unknown) (no (unknown) (unknown) Urine WBC (units (unkn own) date) unknown) (unknown) (no (unknown) (unknown) Urine pH 5.0 (units (u nknown) date) unknown) (unknown) (no (unknown) (unknown) Urine pH (units (unkno wn) date) unknown) (unknown) (no (unknown) (unknown) Vital Signs (units (un known) date) unknown) (unknown) (no (unknown) (unknown) WBC 29.1 H (units (unk nown) date) unknown) (unknown) (no (unknown) (unknown) WBC (units (unkno wn) date) unknown) (unknown) (no (unknown) (unknown) When he presented (units (unknown) date) to the emergency unknown) department he was acutely ill, febrile and (unknown) (no (unknown) (unknown) While in the (units (u nknown) date) emergency unknown) department he had fever and rigors and was administered (unknown) (no (unknown) (unknown) [Embedded Image (units (unknown) date) Not Available] unknown) (unknown) (no (unknown) (unknown) after speaking to (units (unknown) date) the urologist this unknown) was placed sometime in early 2019, and 1 it (unknown) (no (unknown) (unknown) alcohol intake (units (unknown) date) current unknown) (unknown) (no (unknown) (unknown) alcohol intake (units (unknown) date) frequency unknown) holiday/special occasion (unknown) (no (unknown) (unknown) amlodipine 10 mg (units (unknown) date) tablet 10 mg PO unknown) DAILY 01/27/18 07/13/19 History (unknown) (no (unknown) (unknown) and vasopressin (units (unknown) date) drip by the unknown) chicken boner. (unknown) (no (unknown) (unknown) appointments were (units (unknown) date) canceled and he was unknown) lost to follow-up. He also had an acute (unknown) (no (unknown) (unknown) associated with (units (unknown) date) pyelonephritis due unknown) to likely a retained ureteral pigtail and (unknown) (no (unknown) (unknown) became hypoxic (units (unknown) date) with oxygen unknown) saturations dropping into the high 80s. He was (unknown) (no (unknown) (unknown) chlorthalidone 50 (units (unknown) date) mg tablet 50 mg PO unknown) DAILY 01/27/18 07/13/19 History (unknown) (no (unknown) (unknown) exenatide (units (unkn own) date) microspheres 2 unknown) mg/0.85 2 mg SUBCUT QWEEK 07/05/19 07/13/19 History (unknown) (no (unknown) (unknown) fatigue, overall (units (unknown) date) altered mental unknown) status, increasing abdominal pain.??He is unable (unknown) (no (unknown) (unknown) fenofibrate (units (un known) date) nanocrystallized unknown) 145 145 mg PO DAILY 07/05/19 07/13/19 History (unknown) (no (unknown) (unknown) gas. Apparently (units (unknown) date) the informed unknown) the ED provider that he was quite fatigued. (unknown) (no (unknown) (unknown) history of kidney (units (unknown) date) stones and the unknown) abdominal CT scan indicated a double-pigtail (unknown) (no (unknown) (unknown) household members (units (unknown) date) spouse unknown) (unknown) (no (unknown) (unknown) hyperlipidemia, (units (unknown) date) prior kidney stones unknown) presents with 12 hours of increasing fevers, (unknown) (no (unknown) (unknown) incontinence (units (u nknown) date) products. He denied unknown) diarrhea constipation but has been passing (unknown) (no (unknown) (unknown) infected ureteral (units (unknown) date) pigtail, acute, unknown) present on admission (unknown) (no (unknown) (unknown) insulin glargine (units (unknown) date) 100 unit/mL (3 26 unknown) units SUBCUT DAILY 01/27/18 07/13/19 History (unknown) (no (unknown) (unknown) into the mid 60s (units (unknown) date) with a map of 53. unknown) Patient will be started on a Alverto-Synephrine (unknown) (no (unknown) (unknown) kidney injury with (units (unknown) date) a creatinine of 1.6 unknown) against a baseline of 1.3. His lactate (unknown) (no (unknown) (unknown) later he (units (unkno wn) date) deteriorated with unknown) severe respiratory distress with dropping (unknown) (no (unknown) (unknown) levofloxacin [From (units (unknown) date) Levaquin] Allergy unknown) Rash Verified 01/31/22 19:12 (unknown) (no (unknown) (unknown) line placed. At (units (unknown) date) that time he was unknown) given 5 mg of IV metoprolol as his heart rate (unknown) (no (unknown) (unknown) losartan 100 mg (units (unknown) date) tablet 100 mg PO unknown) DAILY 01/27/18 07/13/19 History (unknown) (no (unknown) (unknown) lower extremity (units (unknown) date) edema. He does have unknown) urinary retention and has had to use (unknown) (no (unknown) (unknown) mL subcutaneous (units (unknown) date) auto-injector unknown) (unknown) (no (unknown) (unknown) mL) subcutaneous (units (unknown) date) pen unknown) (unknown) (no (unknown) (unknown) metformin 500 mg (units (unknown) date) tablet 500 mg PO unknown) BID 01/27/18 07/13/19 History (unknown) (no (unknown) (unknown) mg tablet (units (unkn own) date) unknown) (unknown) (no (unknown) (unknown) mucosa pink and (units (unknown) date) moist unknown) (unknown) (no (unknown) (unknown) oxycodone 5 mg (units (unknown) date) capsule 5 mg PO Q4H unknown) PRN pain #14 caps 07/13/19 Rx (unknown) (no (unknown) (unknown) pain. He was found (units (unknown) date) to be tachycardic unknown) tachypneic at and afebrile 1 a per did (unknown) (no (unknown) (unknown) pale and (units (unkno wn) date) apparently informed unknown) the provider that he had significant abdominal (unknown) (no (unknown) (unknown) placement (units (unkn own) date) indicated flash unknown) pulmonary edema. Second troponin is now 0.6. (unknown) (no (unknown) (unknown) present and he was (units (unknown) date) normotensive with unknown) 99% oxygen saturations initially. He has a (unknown) (no (unknown) (unknown) pressure was in (units (unknown) date) the systolics of unknown) over 200 and now dropped to 125/30 with (unknown) (no (unknown) (unknown) procalcitonin of (units (unknown) date) 4.7. His troponin unknown) was initially 0.9 and his now come down to (unknown) (no (unknown) (unknown) resultant (units (unkn own) date) infection. Patient unknown) is critically ill, ventilated and sedated. (unknown) (no (unknown) (unknown) right urethral (units (unknown) date) stent without unknown) hydronephrosis or hydroureter. Per the ED provider (unknown) (no (unknown) (unknown) rosuvastatin 40 mg (units (unknown) date) tablet 40 mg PO unknown) DAILY 07/05/19 07/13/19 History (unknown) (no (unknown) (unknown) saturations. He (units (unknown) date) was then intubated unknown) in the emergency department and a central (unknown) (no (unknown) (unknown) sedation. His rate (units (unknown) date) at that time was unknown) 130. Chest x-ray to confirm ET tube (unknown) (no (unknown) (unknown) started on 2 L of (units (unknown) date) oxygen, unknown) administered Reglan, and then about a half an hour (unknown) (no (unknown) (unknown) tamsulosin 0.4 mg (units (unknown) date) capsule 0.4 mg PO unknown) DAILY #60 caps 07/13/19 07/13/19 Rx (unknown) (no (unknown) (unknown) to provide a (units (u nknown) date) history because he unknown) is sedated and intubated. Apparently inform the (unknown) (no (unknown) (unknown) today; this time (units (unknown) date) is exclusive of unknown) procedural time. (unknown) (no (unknown) (unknown) was elevated at (units (unknown) date) 3.0 and is now unknown) increased to 5.3. He also had an elevated (unknown) (no (unknown) (unknown) was in the 160s (units (unknown) date) dropping it down unknown) into the 130s. They stated that his blood (unknown) (no (unknown) (unknown) was to be removed (units (unknown) date) due to the early unknown) part of the pandemic his follow-up Result panel 32 (unknown) (no date) (unknown) (unknown) 7.8 % (unkn own) (unknown) (no date) (unknown) (unknown) 7.8 % (unkn own) Result panel 33 (unknown) (no (unknown) (unknown) (no value) (units (unk nown) date) unknown) (unknown) (no (unknown) (unknown) ([place] BCise) (units (unknown) date) unknown) (unknown) (no (unknown) (unknown) (past 8 hours): (units (unknown) date) unknown) (unknown) (no (unknown) (unknown) * Case has been (units (unknown) date) discussed with Dr. azevedo) Sung. I was informed that they are (unknown) (no (unknown) (unknown) * Continue to (units ( unknown) date) follow lactates, unknown) cbc and bmp until it normalizes (unknown) (no (unknown) (unknown) * Continue to (units ( unknown) date) trend troponins q.6 unknown) hours, it has started to trend down which is (unknown) (no (unknown) (unknown) * D-dimer was (units ( unknown) date) approximately 821 unknown) however CTA of the chest was negative for a (unknown) (no (unknown) (unknown) * Likely due to (units (unknown) date) volume overload unknown) with saline boluses and continued fluids which (unknown) (no (unknown) (unknown) * Patient does not (units (unknown) date) have a documented unknown) history in our system for coronary artery (unknown) (no (unknown) (unknown) * Patient was (units ( unknown) date) initially started unknown) on IV ceftriaxone and Flagyl (unknown) (no (unknown) (unknown) * Patient will be (units (unknown) date) receiving unknown) phenylephrine and vasopressin per chicken boner goal (unknown) (no (unknown) (unknown) * This is been (units (unknown) date) changed to empiric unknown) IV cefepime and IV vanco, Flagyl will be (unknown) (no (unknown) (unknown) * Will likely need (units (unknown) date) an echocardiogram unknown) tomorrow sometime to assess for congestive (unknown) (no (unknown) (unknown) 01/31/22 01/31/22 (units (unknown) date) 01/31/22 unknown) (unknown) (no (unknown) (unknown) 01/31/22 20:00 (units (unknown) date) unknown) (unknown) (no (unknown) (unknown) 01/31/22 (units (unkno wn) date) unknown) (unknown) (no (unknown) (unknown) 02/01/22 0113 (units ( unknown) date) unknown) (unknown) (no (unknown) (unknown) 160s dropping it (units (unknown) date) down into the 130s. unknown) They stated that his blood pressure (unknown) (no (unknown) (unknown) 19:06 01/31/22 (units (unknown) date) unknown) (unknown) (no (unknown) (unknown) 19:19 01/31/22 (units (unknown) date) unknown) (unknown) (no (unknown) (unknown) 19:20 01/31/22 (units (unknown) date) unknown) (unknown) (no (unknown) (unknown) 19:20 (units (unkno wn) date) unknown) (unknown) (no (unknown) (unknown) 19:30 01/31/22 (units (unknown) date) unknown) (unknown) (no (unknown) (unknown) 19:30 (units (unkno wn) date) unknown) (unknown) (no (unknown) (unknown) 20:00 01/31/22 (units (unknown) date) unknown) (unknown) (no (unknown) (unknown) 20:00 20:00 20:00 (units (unknown) date) unknown) (unknown) (no (unknown) (unknown) 20:14 22:13 22:13 (units (unknown) date) unknown) (unknown) (no (unknown) (unknown) 20:30 01/31/22 (units (unknown) date) unknown) (unknown) (no (unknown) (unknown) 20:30 (units (unkno wn) date) unknown) (unknown) (no (unknown) (unknown) 20:45 01/31/22 (units (unknown) date) unknown) (unknown) (no (unknown) (unknown) 21:07 (units (unkno wn) date) unknown) (unknown) (no (unknown) (unknown) 21:11 01/31/22 (units (unknown) date) unknown) (unknown) (no (unknown) (unknown) 21:15 01/31/22 (units (unknown) date) unknown) (unknown) (no (unknown) (unknown) 21:30 01/31/22 (units (unknown) date) unknown) (unknown) (no (unknown) (unknown) 21:30 (units (unkno wn) date) unknown) (unknown) (no (unknown) (unknown) 21:46 01/31/22 (units (unknown) date) unknown) (unknown) (no (unknown) (unknown) 21:46 (units (unkno wn) date) unknown) (unknown) (no (unknown) (unknown) 22:00 01/31/22 (units (unknown) date) unknown) (unknown) (no (unknown) (unknown) 22:05 (units (unkno wn) date) unknown) (unknown) (no (unknown) (unknown) 22:15 01/31/22 (units (unknown) date) unknown) (unknown) (no (unknown) (unknown) 22:15 (units (unkno wn) date) unknown) (unknown) (no (unknown) (unknown) 22:21 01/31/22 (units (unknown) date) unknown) (unknown) (no (unknown) (unknown) 22:21 (units (unkno wn) date) unknown) (unknown) (no (unknown) (unknown) 22:30 01/31/22 (units (unknown) date) unknown) (unknown) (no (unknown) (unknown) 22:30 (units (unkno wn) date) unknown) (unknown) (no (unknown) (unknown) 22:40 01/31/22 (units (unknown) date) unknown) (unknown) (no (unknown) (unknown) 22:45 01/31/22 (units (unknown) date) unknown) (unknown) (no (unknown) (unknown) 22:45 (units (unkno wn) date) unknown) (unknown) (no (unknown) (unknown) 22:49 01/31/22 (units (unknown) date) unknown) (unknown) (no (unknown) (unknown) 22:50 (units (unkno wn) date) unknown) (unknown) (no (unknown) (unknown) 22:52 01/31/22 (units (unknown) date) unknown) (unknown) (no (unknown) (unknown) 22:55 01/31/22 (units (unknown) date) unknown) (unknown) (no (unknown) (unknown) 23:00 01/31/22 (units (unknown) date) unknown) (unknown) (no (unknown) (unknown) 23:00 (units (unkno wn) date) unknown) (unknown) (no (unknown) (unknown) 23:06 01/31/22 (units (unknown) date) unknown) (unknown) (no (unknown) (unknown) 23:10 01/31/22 (units (unknown) date) unknown) (unknown) (no (unknown) (unknown) 23:10 (units (unkno wn) date) unknown) (unknown) (no (unknown) (unknown) 23:15 (units (unkno wn) date) unknown) (unknown) (no (unknown) (unknown) ALT 16 (units (unkno wn) date) unknown) (unknown) (no (unknown) (unknown) ALT (units (unkno wn) date) unknown) (unknown) (no (unknown) (unknown) APTT 31 (units (unkno wn) date) unknown) (unknown) (no (unknown) (unknown) APTT (units (unkno wn) date) unknown) (unknown) (no (unknown) (unknown) AST 31 (units (unkno wn) date) unknown) (unknown) (no (unknown) (unknown) AST (units (unkno wn) date) unknown) (unknown) (no (unknown) (unknown) Abd: soft, (units (unk nown) date) non-tender, unknown) normoactive BTs (unknown) (no (unknown) (unknown) Age/Sex: 71 / M (units (unknown) date) unknown) (unknown) (no (unknown) (unknown) Albumin 4.2 (units (un known) date) unknown) (unknown) (no (unknown) (unknown) Albumin (units (unkno wn) date) unknown) (unknown) (no (unknown) (unknown) Albumin/Globulin (units (unknown) date) Ratio 1.2 unknown) (unknown) (no (unknown) (unknown) Albumin/Globulin (units (unknown) date) Ratio unknown) (unknown) (no (unknown) (unknown) Alkaline (units (unkno wn) date) Phosphatase 66 unknown) (unknown) (no (unknown) (unknown) Alkaline (units (unkno wn) date) Phosphatase unknown) (unknown) (no (unknown) (unknown) Allergies (units (unkn own) date) unknown) (unknown) (no (unknown) (unknown) Allergy/AdvReac (units (unknown) date) Type Severity unknown) Reaction Status Date / Time (unknown) (no (unknown) (unknown) Anisocytosis 1+ H (units (unknown) date) unknown) (unknown) (no (unknown) (unknown) Anisocytosis (units (u nknown) date) unknown) (unknown) (no (unknown) (unknown) Assessment + Plan (units (unknown) date) narrative: unknown) (unknown) (no (unknown) (unknown) Assessment + Plan (units (unknown) date) unknown) (unknown) (no (unknown) (unknown) At that time he (units (unknown) date) was given 5 mg of unknown) IV metoprolol as his heart rate was in the (unknown) (no (unknown) (unknown) BUN 22 H (units (unkno wn) date) unknown) (unknown) (no (unknown) (unknown) BUN (units (unkno wn) date) unknown) (unknown) (no (unknown) (unknown) BUN/Creatinine (units (unknown) date) Ratio 13.8 unknown) (unknown) (no (unknown) (unknown) BUN/Creatinine (units (unknown) date) Ratio unknown) (unknown) (no (unknown) (unknown) Band Neutrophils % (units (unknown) date) 12.0 H unknown) (unknown) (no (unknown) (unknown) Band Neutrophils % (units (unknown) date) unknown) (unknown) (no (unknown) (unknown) Baso # (Auto) Not (units (unknown) date) Reportable unknown) (unknown) (no (unknown) (unknown) Baso # (Auto) (units ( unknown) date) unknown) (unknown) (no (unknown) (unknown) Baso % (Auto) Not (units (unknown) date) Reportable unknown) (unknown) (no (unknown) (unknown) Baso % (Auto) (units ( unknown) date) unknown) (unknown) (no (unknown) (unknown) Been Physically (units (unknown) date) Hurt or No unknown) (unknown) (no (unknown) (unknown) Blood Pressure (units (unknown) date) 115/69 120/75 unknown) 128/77 (unknown) (no (unknown) (unknown) Blood Pressure (units (unknown) date) 127/80 unknown) (unknown) (no (unknown) (unknown) Blood Pressure (units (unknown) date) 128/76 160/104 H unknown) (unknown) (no (unknown) (unknown) Blood Pressure (units (unknown) date) 132/79 unknown) (unknown) (no (unknown) (unknown) Blood Pressure (units (unknown) date) 134/75 139/80 unknown) (unknown) (no (unknown) (unknown) Blood Pressure (units (unknown) date) 136/78 unknown) (unknown) (no (unknown) (unknown) Blood Pressure (units (unknown) date) 137/76 unknown) (unknown) (no (unknown) (unknown) Blood Pressure (units (unknown) date) 138/78 146/84 H unknown) (unknown) (no (unknown) (unknown) Blood Pressure (units (unknown) date) 147/79 H unknown) (unknown) (no (unknown) (unknown) Blood Pressure (units (unknown) date) 150/100 H unknown) (unknown) (no (unknown) (unknown) Blood Pressure (units (unknown) date) 153/77 H 128/76 unknown) (unknown) (no (unknown) (unknown) Blood Pressure (units (unknown) date) 153/93 H 113/68 unknown) (unknown) (no (unknown) (unknown) Blood Pressure (units (unknown) date) 159/99 H 139/80 unknown) (unknown) (no (unknown) (unknown) Blood Pressure (units (unknown) date) 174/114 H unknown) (unknown) (no (unknown) (unknown) Blood Pressure (units (unknown) date) 206/130 H 170/100 H unknown) (unknown) (no (unknown) (unknown) CK-MB (CK-2) Rel (units (unknown) date) Index TNP unknown) (unknown) (no (unknown) (unknown) CK-MB (CK-2) Rel (units (unknown) date) Index unknown) (unknown) (no (unknown) (unknown) CK-MB (CK-2) TNP (units (unknown) date) unknown) (unknown) (no (unknown) (unknown) CK-MB (CK-2) (units (u nknown) date) unknown) (unknown) (no (unknown) (unknown) CV: RRR, no murmur (units (unknown) date) or rubs unknown) (unknown) (no (unknown) (unknown) Calcium 8.1 L (units ( unknown) date) unknown) (unknown) (no (unknown) (unknown) Calcium (units (unkno wn) date) unknown) (unknown) (no (unknown) (unknown) Carbon Dioxide 23 (units (unknown) date) unknown) (unknown) (no (unknown) (unknown) Carbon Dioxide (units (unknown) date) unknown) (unknown) (no (unknown) (unknown) Chief complaint: (units (unknown) date) Vomiting, Stomach unknown) cramps, SOB (unknown) (no (unknown) (unknown) Chloride 96 L (units ( unknown) date) unknown) (unknown) (no (unknown) (unknown) Chloride (units (unkno wn) date) unknown) (unknown) (no (unknown) (unknown) Code status: Full (units (unknown) date) code presumed with unknown) patient's acting as his surrogate and (unknown) (no (unknown) (unknown) Consultants (units (unknown) date) Sung, urology unknown) and [facility], care and involvement in the (unknown) (no (unknown) (unknown) Creatinine 1.60 H (units (unknown) date) unknown) (unknown) (no (unknown) (unknown) Creatinine (units (unk nown) date) unknown) (unknown) (no (unknown) (unknown) Critical Care (units ( unknown) date) time: unknown) (unknown) (no (unknown) (unknown) D-Dimer 821 H (units ( unknown) date) unknown) (unknown) (no (unknown) (unknown) D-Dimer (units (unkno wn) date) unknown) (unknown) (no (unknown) (unknown) : 1950 (units (unknown) date) Acct:[id number] unknown) (unknown) (no (unknown) (unknown) Date Patient Seen: (units (unknown) date) 02/01/22 unknown) (unknown) (no (unknown) (unknown) Date of Service: (units (unknown) date) 01/31/22 unknown) (unknown) (no (unknown) (unknown) Deep Vein (units (unkn own) date) Thrombosis/Pulmonar unknown) y Embolism Present on Admission: No (unknown) (no (unknown) (unknown) Dispo: Unknown at (units (unknown) date) this time unknown) (unknown) (no (unknown) (unknown) ED provider per (units (unknown) date) her note stated unknown) that he denied any cough, chest pain, (unknown) (no (unknown) (unknown) Elevated D-dimer (units (unknown) date) with sudden onset unknown) hypoxia, acute, present on admission (unknown) (no (unknown) (unknown) Elevated troponin, (units (unknown) date) acute, present on unknown) admission (unknown) (no (unknown) (unknown) Environment (units (un known) date) unknown) (unknown) (no (unknown) (unknown) Eos % (Auto) Not (units (unknown) date) Reportable unknown) (unknown) (no (unknown) (unknown) Eos % (Auto) (units (u nknown) date) unknown) (unknown) (no (unknown) (unknown) Estimated GFR 45 L (units (unknown) date) unknown) (unknown) (no (unknown) (unknown) Estimated GFR (units ( unknown) date) unknown) (unknown) (no (unknown) (unknown) Exam Narrative: (units (unknown) date) unknown) (unknown) (no (unknown) (unknown) Exam (units (unkno wn) date) unknown) (unknown) (no (unknown) (unknown) Extremities: Cool (units (unknown) date) and dry patient is unknown) immobile. (unknown) (no (unknown) (unknown) FEN: IV fluids: (units (unknown) date) Saline lock, has unknown) multiple drips, diet: NPO, labs: CBC, C/BMP,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 (units ( unknown) date) unknown) (unknown) (no (unknown) (unknown) levofloxacin [From (units (unknown) date) Levaquin] Allergy unknown) Rash Verified 01/31/22 19:12 (unknown) (no (unknown) (unknown) likely secondary (units (unknown) date) to demand ischemia unknown) associated with both sepsis and the acute (unknown) (no (unknown) (unknown) likely to need to (units (unknown) date) dissolve the stent unknown) via lithotripsy however if his cultures (unknown) (no (unknown) (unknown) liver enzymes, (units (unknown) date) Mag, PT/INR, trend unknown) troponin and lactate (unknown) (no (unknown) (unknown) losartan 100 mg (units (unknown) date) tablet 100 mg PO unknown) DAILY 01/27/18 07/13/19 History (unknown) (no (unknown) (unknown) mL subcutaneous (units (unknown) date) auto-injector unknown) (unknown) (no (unknown) (unknown) mL) subcutaneous (units (unknown) date) pen unknown) (unknown) (no (unknown) (unknown) maintained due to (units (unknown) date) concerns for unknown) aspiration, narrow coverage after cultures (unknown) (no (unknown) (unknown) metformin 500 mg (units (unknown) date) tablet 500 mg PO unknown) BID 01/27/18 07/13/19 History (unknown) (no (unknown) (unknown) mg tablet (units (unkn own) date) unknown) (unknown) (no (unknown) (unknown) mucosa pink and (units (unknown) date) moist unknown) (unknown) (no (unknown) (unknown) nd vasopressin (units (unknown) date) drip by the unknown) chicken boner. (unknown) (no (unknown) (unknown) need to be (units (unk nown) date) transferred for unknown) further surgical intervention. (unknown) (no (unknown) (unknown) obstruction. While (units (unknown) date) in the emergency unknown) department he had fever and rigors and was (unknown) (no (unknown) (unknown) of disease, risks (units (unknown) date) of further disease unknown) progression and this stay is expected to (unknown) (no (unknown) (unknown) oxycodone 5 mg (units (unknown) date) capsule 5 mg PO Q4H unknown) PRN pain #14 caps 07/13/19 Rx (unknown) (no (unknown) (unknown) pain. He was found (units (unknown) date) to be tachycardic, unknown) tachypneic at and afebrile when he (unknown) (no (unknown) (unknown) pale and (units (unkno wn) date) apparently informed unknown) the provider that he had significant abdominal (unknown) (no (unknown) (unknown) palpitations or (units (unknown) date) lower extremity unknown) edema. He does have urinary retention and has (unknown) (no (unknown) (unknown) passing gas. (units (u nknown) date) Apparently the unknown) informed the ED provider that he was quite (unknown) (no (unknown) (unknown) patient?s care is (units (unknown) date) appreciated. unknown) (unknown) (no (unknown) (unknown) pigtail right (units ( unknown) date) urethral stent unknown) without hydronephrosis or hydroureter. He also (unknown) (no (unknown) (unknown) pulmonary edema. (units (unknown) date) Second troponin is unknown) now 0.6. (unknown) (no (unknown) (unknown) pulmonary (units (unkn own) date) embolism. unknown) (unknown) (no (unknown) (unknown) resultant (units (unkn own) date) infection. Patient unknown) is critically ill, ventilated and sedated. (unknown) (no (unknown) (unknown) return. (units (unkno wn) date) unknown) (unknown) (no (unknown) (unknown) review of the (units ( unknown) date) patient's current unknown) medications (unknown) (no (unknown) (unknown) rosuvastatin 40 mg (units (unknown) date) tablet 40 mg PO unknown) DAILY 07/05/19 07/13/19 History (unknown) (no (unknown) (unknown) systolic of over (units (unknown) date) 200 and now dropped unknown) to 125/30 with sedation. His rate at that (unknown) (no (unknown) (unknown) tamsulosin 0.4 mg (units (unknown) date) capsule 0.4 mg PO unknown) DAILY #60 caps 07/13/19 07/13/19 Rx (unknown) (no (unknown) (unknown) time was 130. (units ( unknown) date) Chest x-ray to unknown) confirm ET tube placement indicated flash (unknown) (no (unknown) (unknown) today; this time (units (unknown) date) is exclusive of unknown) procedural time. (unknown) (no (unknown) (unknown) unable to provide (units (unknown) date) a history because unknown) he is sedated and intubated. Apparently the (unknown) (no (unknown) (unknown) urgently intubated (units (unknown) date) in the emergency unknown) department and a central line was placed. (unknown) (no (unknown) (unknown) ventricular (units (un known) date) systolic function.: unknown) No (unknown) (no (unknown) (unknown) was started on 2 L (units (unknown) date) of oxygen, unknown) administered Reglan. About a half an hour later he Result panel 34 (unknown) (no date) (unknown) (unknown) Negative for (units ( unknown) MRSA unknown) Result panel 35 (unknown) (no date) (unknown) (unknown) 12.6 g/dl (unkn own) (unknown) (no date) (unknown) (unknown) 14.3 % (unkn own) (unknown) (no date) (unknown) (unknown) 209 x10 3/ul (unkn own) (unknown) (no date) (unknown) (unknown) 28.4 pg (unkn own) (unknown) (no date) (unknown) (unknown) 33.7 % (unkn own) (unknown) (no date) (unknown) (unknown) 37.4 % (unkn own) (unknown) (no date) (unknown) (unknown) 4.44 x10 6/ul (unkn own) (unknown) (no date) (unknown) (unknown) 46.5 x10 3/ul (unkn own) (unknown) (no date) (unknown) (unknown) 46.5 x10 3/ul (unkn own) (unknown) (no date) (unknown) (unknown) 84.4 fl (unkn own) Result panel 36 (unknown) (no date) (unknown) (unknown) 2.0 (units unknown) (unknown) (unknown) (no date) (unknown) (unknown) 22.7 seconds (unkn own) Result panel 37 (unknown) (no date) (unknown) (unknown) 1.0 (units unknown) (unknown) (unknown) (no date) (unknown) (unknown) 1.7 mg/dl (unkn own) (unknown) (no date) (unknown) (unknown) 1.7 mg/dl (unkn own) (unknown) (no date) (unknown) (unknown) 101 mmol/l (unkn own) (unknown) (no date) (unknown) (unknown) 11.0 (units unknown) (unknown) (unknown) (no date) (unknown) (unknown) 135 mmol/l (unkn own) (unknown) (no date) (unknown) (unknown) 15 mmol/l (unkn own) (unknown) (no date) (unknown) (unknown) 2.27 mg/dl (unkn own) (unknown) (no date) (unknown) (unknown) 2.9 g/dl (unkn own) (unknown) (no date) (unknown) (unknown) 25 mg/dl (unkn own) (unknown) (no date) (unknown) (unknown) 3.0 g/dl (unkn own) (unknown) (no date) (unknown) (unknown) 30 ml/min (unkn own) (unknown) (no date) (unknown) (unknown) 30 ml/min (unkn own) (unknown) (no date) (unknown) (unknown) 367 mg/dl (unkn own) (unknown) (no date) (unknown) (unknown) 367 mg/dl (unkn own) (unknown) (no date) (unknown) (unknown) 4.1 mmol/l (unkn own) (unknown) (no date) (unknown) (unknown) 5.9 g/dl (unkn own) (unknown) (no date) (unknown) (unknown) 53 iu/l (unkn own) (unknown) (no date) (unknown) (unknown) 57 u/l (unkn own) (unknown) (no date) (unknown) (unknown) 6.8 mg/dl (unkn own) Result panel 38 (unknown) (no date) (unknown) (unknown) 1.0 (units unknown) (unknown) (unknown) (no date) (unknown) (unknown) 1.7 mg/dl (unkn own) (unknown) (no date) (unknown) (unknown) 1.7 mg/dl (unkn own) (unknown) (no date) (unknown) (unknown) 101 mmol/l (unkn own) (unknown) (no date) (unknown) (unknown) 11.0 (units unknown) (unknown) (unknown) (no date) (unknown) (unknown) 135 mmol/l (unkn own) (unknown) (no date) (unknown) (unknown) 15 mmol/l (unkn own) (unknown) (no date) (unknown) (unknown) 2.27 mg/dl (unkn own) (unknown) (no date) (unknown) (unknown) 2.9 g/dl (unkn own) (unknown) (no date) (unknown) (unknown) 24 iu/l (unkn own) (unknown) (no date) (unknown) (unknown) 25 mg/dl (unkn own) (unknown) (no date) (unknown) (unknown) 3.0 g/dl (unkn own) (unknown) (no date) (unknown) (unknown) 30 ml/min (unkn own) (unknown) (no date) (unknown) (unknown) 30 ml/min (unkn own) (unknown) (no date) (unknown) (unknown) 367 mg/dl (unkn own) (unknown) (no date) (unknown) (unknown) 367 mg/dl (unkn own) (unknown) (no date) (unknown) (unknown) 4.1 mmol/l (unkn own) (unknown) (no date) (unknown) (unknown) 5.9 g/dl (unkn own) (unknown) (no date) (unknown) (unknown) 53 iu/l (unkn own) (unknown) (no date) (unknown) (unknown) 57 u/l (unkn own) (unknown) (no date) (unknown) (unknown) 6.8 mg/dl (unkn own) Result panel 39 (unknown) (no date) (unknown) (unknown) 3.470 ng/ml (unkn own) (unknown) (no date) (unknown) (unknown) 3.470 ng/ml (unkn own) Result panel 40 (unknown) (no (unknown) (unknown) (no value) (units (unk nown) date) unknown) (unknown) (no (unknown) (unknown) (past 8 hours): (units (unknown) date) unknown) (unknown) (no (unknown) (unknown) ADDENDUM (units (u nknown) date) unknown) (unknown) (no (unknown) (unknown) 0.7 MCG/KG/HR (units ( unknown) date) unknown) (unknown) (no (unknown) (unknown) 00:00 (units (unkno wn) date) unknown) (unknown) (no (unknown) (unknown) 07/13/19] (units (unkn own) date) unknown) (unknown) (no (unknown) (unknown) 0400 6-hour (units (un known) date) troponin abdi to unknown) 3.470. Discussed w/Dr. Hicks and she did not feel a (unknown) (no (unknown) (unknown) 01/27/18 [History (units (unknown) date) Confirmed 07/13/19] unknown) (unknown) (no (unknown) (unknown) 01/31/22 01/31/22 (units (unknown) date) 01/31/22 unknown) (unknown) (no (unknown) (unknown) 01/31/22 20:00 (units (unknown) date) unknown) (unknown) (no (unknown) (unknown) 01/31/22 (units (unkno wn) date) unknown) (unknown) (no (unknown) (unknown) 02/01/22 0044 (units ( unknown) date) unknown) (unknown) (no (unknown) (unknown) 02/01/22 0600 (units ( unknown) date) unknown) (unknown) (no (unknown) (unknown) 19:06 01/31/22 (units (unknown) date) unknown) (unknown) (no (unknown) (unknown) 19:19 01/31/22 (units (unknown) date) unknown) (unknown) (no (unknown) (unknown) 19:20 01/31/22 (units (unknown) date) unknown) (unknown) (no (unknown) (unknown) 19:20 (units (unkno wn) date) unknown) (unknown) (no (unknown) (unknown) 19:30 01/31/22 (units (unknown) date) unknown) (unknown) (no (unknown) (unknown) 19:30 (units (unkno wn) date) unknown) (unknown) (no (unknown) (unknown) 2 mg SUBCUT QWEEK (units (unknown) date) 07/05/19 [History unknown) Confirmed 07/13/19] (unknown) (no (unknown) (unknown) 20:00 01/31/22 (units (unknown) date) unknown) (unknown) (no (unknown) (unknown) 20:00 20:00 20:00 (units (unknown) date) unknown) (unknown) (no (unknown) (unknown) 20:14 22:13 22:13 (units (unknown) date) unknown) (unknown) (no (unknown) (unknown) 20:30 01/31/22 (units (unknown) date) unknown) (unknown) (no (unknown) (unknown) 20:30 (units (unkno wn) date) unknown) (unknown) (no (unknown) (unknown) 20:45 01/31/22 (units (unknown) date) unknown) (unknown) (no (unknown) (unknown) 21:07 (units (unkno wn) date) unknown) (unknown) (no (unknown) (unknown) 21:11 01/31/22 (units (unknown) date) unknown) (unknown) (no (unknown) (unknown) 21:15 01/31/22 (units (unknown) date) unknown) (unknown) (no (unknown) (unknown) 21:30 01/31/22 (units (unknown) date) unknown) (unknown) (no (unknown) (unknown) 21:30 (units (unkno wn) date) unknown) (unknown) (no (unknown) (unknown) 21:46 01/31/22 (units (unknown) date) unknown) (unknown) (no (unknown) (unknown) 21:46 (units (unkno wn) date) unknown) (unknown) (no (unknown) (unknown) 22:00 01/31/22 (units (unknown) date) unknown) (unknown) (no (unknown) (unknown) 22:05 (units (unkno wn) date) unknown) (unknown) (no (unknown) (unknown) 22:15 01/31/22 (units (unknown) date) unknown) (unknown) (no (unknown) (unknown) 22:15 (units (unkno wn) date) unknown) (unknown) (no (unknown) (unknown) 22:21 01/31/22 (units (unknown) date) unknown) (unknown) (no (unknown) (unknown) 22:21 (units (unkno wn) date) unknown) (unknown) (no (unknown) (unknown) 22:30 01/31/22 (units (unknown) date) unknown) (unknown) (no (unknown) (unknown) 22:30 (units (unkno wn) date) unknown) (unknown) (no (unknown) (unknown) 22:40 01/31/22 (units (unknown) date) unknown) (unknown) (no (unknown) (unknown) 22:45 01/31/22 (units (unknown) date) unknown) (unknown) (no (unknown) (unknown) 22:45 (units (unkno wn) date) unknown) (unknown) (no (unknown) (unknown) 22:49 01/31/22 (units (unknown) date) unknown) (unknown) (no (unknown) (unknown) 22:50 (units (unkno wn) date) unknown) (unknown) (no (unknown) (unknown) 22:52 01/31/22 (units (unknown) date) unknown) (unknown) (no (unknown) (unknown) 22:55 01/31/22 (units (unknown) date) unknown) (unknown) (no (unknown) (unknown) 23:00 01/31/22 (units (unknown) date) unknown) (unknown) (no (unknown) (unknown) 23:00 (units (unkno wn) date) unknown) (unknown) (no (unknown) (unknown) 23:06 01/31/22 (units (unknown) date) unknown) (unknown) (no (unknown) (unknown) 23:10 01/31/22 (units (unknown) date) unknown) (unknown) (no (unknown) (unknown) 23:10 (units (unkno wn) date) unknown) (unknown) (no (unknown) (unknown) 23:15 (units (unkno wn) date) unknown) (unknown) (no (unknown) (unknown) 23:49 (units (unkno wn) date) unknown) (unknown) (no (unknown) (unknown) 5 MCG/KG/MIN (units (u nknown) date) unknown) (unknown) (no (unknown) (unknown) 71 y.o. 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, hyperlipidemia, prior kidney (unknown) (no (unknown) (unknown) ALT 16 (units (unkno wn) date) unknown) (unknown) (no (unknown) (unknown) ALT (units (unkno wn) date) unknown) (unknown) (no (unknown) (unknown) APTT 31 (units (unkno wn) date) unknown) (unknown) (no (unknown) (unknown) APTT (units (unkno wn) date) unknown) (unknown) (no (unknown) (unknown) AST 31 (units (unkno wn) date) unknown) (unknown) (no (unknown) (unknown) AST (units (unkno wn) date) unknown) (unknown) (no (unknown) (unknown) Addendum (units (unkno wn) date) Documented By: unknown) Modesta Thompson (unknown) (no (unknown) (unknown) Addendum Signed (units (unknown) date) By: <Electronically unknown) signed by Modesta Thompson> (unknown) (no (unknown) (unknown) Administration (units (unknown) date) unknown) (unknown) (no (unknown) (unknown) Age/Sex: 71 / M (units (unknown) date) unknown) (unknown) (no (unknown) (unknown) Albumin 4.2 (units (un known) date) unknown) (unknown) (no (unknown) (unknown) Albumin (units (unkno wn) date) unknown) (unknown) (no (unknown) (unknown) Albumin/Globulin (units (unknown) date) Ratio 1.2 unknown) (unknown) (no (unknown) (unknown) Albumin/Globulin (units (unknown) date) Ratio unknown) (unknown) (no (unknown) (unknown) Alkaline (units (unkno wn) date) Phosphatase 66 unknown) (unknown) (no (unknown) (unknown) Alkaline (units (unkno wn) date) Phosphatase unknown) (unknown) (no (unknown) (unknown) Anisocytosis 1+ H (units (unknown) date) unknown) (unknown) (no (unknown) (unknown) Anisocytosis (units (u nknown) date) unknown) (unknown) (no (unknown) (unknown) Assessment + Plan (units (unknown) date) narrative: unknown) (unknown) (no (unknown) (unknown) Assessment + Plan (units (unknown) date) unknown) (unknown) (no (unknown) (unknown) BUN 22 H (units (unkno wn) date) unknown) (unknown) (no (unknown) (unknown) BUN (units (unkno wn) date) unknown) (unknown) (no (unknown) (unknown) BUN/Creatinine (units (unknown) date) Ratio 13.8 unknown) (unknown) (no (unknown) (unknown) BUN/Creatinine (units (unknown) date) Ratio unknown) (unknown) (no (unknown) (unknown) Band Neutrophils % (units (unknown) date) 12.0 H unknown) (unknown) (no (unknown) (unknown) Band Neutrophils % (units (unknown) date) unknown) (unknown) (no (unknown) (unknown) Baso # (Auto) Not (units (unknown) date) Reportable unknown) (unknown) (no (unknown) (unknown) Baso # (Auto) (units ( unknown) date) unknown) (unknown) (no (unknown) (unknown) Baso % (Auto) Not (units (unknown) date) Reportable unknown) (unknown) (no (unknown) (unknown) Baso % (Auto) (units ( unknown) date) unknown) (unknown) (no (unknown) (unknown) Blood Pressure (units (unknown) date) 115/69 120/75 unknown) 128/77 (unknown) (no (unknown) (unknown) Blood Pressure (units (unknown) date) 127/80 unknown) (unknown) (no (unknown) (unknown) Blood Pressure (units (unknown) date) 128/76 160/104 H unknown) (unknown) (no (unknown) (unknown) Blood Pressure (units (unknown) date) 132/79 unknown) (unknown) (no (unknown) (unknown) Blood Pressure (units (unknown) date) 134/75 139/80 unknown) (unknown) (no (unknown) (unknown) Blood Pressure (units (unknown) date) 136/78 unknown) (unknown) (no (unknown) (unknown) Blood Pressure (units (unknown) date) 137/76 unknown) (unknown) (no (unknown) (unknown) Blood Pressure (units (unknown) date) 138/78 146/84 H unknown) (unknown) (no (unknown) (unknown) Blood Pressure (units (unknown) date) 147/79 H unknown) (unknown) (no (unknown) (unknown) Blood Pressure (units (unknown) date) 150/100 H unknown) (unknown) (no (unknown) (unknown) Blood Pressure (units (unknown) date) 153/77 H 128/76 unknown) (unknown) (no (unknown) (unknown) Blood Pressure (units (unknown) date) 153/93 H 113/68 unknown) (unknown) (no (unknown) (unknown) Blood Pressure (units (unknown) date) 159/99 H 139/80 unknown) (unknown) (no (unknown) (unknown) Blood Pressure (units (unknown) date) 174/114 H unknown) (unknown) (no (unknown) (unknown) Blood Pressure (units (unknown) date) 206/130 H 170/100 H unknown) (unknown) (no (unknown) (unknown) CK-MB (CK-2) Rel (units (unknown) date) Index TNP unknown) (unknown) (no (unknown) (unknown) CK-MB (CK-2) Rel (units (unknown) date) Index unknown) (unknown) (no (unknown) (unknown) CK-MB (CK-2) TNP (units (unknown) date) unknown) (unknown) (no (unknown) (unknown) CK-MB (CK-2) (units (u nknown) date) unknown) (unknown) (no (unknown) (unknown) Calcium 8.1 L (units ( unknown) date) unknown) (unknown) (no (unknown) (unknown) Calcium (units (unkno wn) date) unknown) (unknown) (no (unknown) (unknown) Carbon Dioxide 23 (units (unknown) date) unknown) (unknown) (no (unknown) (unknown) Carbon Dioxide (units (unknown) date) unknown) (unknown) (no (unknown) (unknown) Chief complaint: (units (unknown) date) Vomiting, Stomach unknown) cramps, SOB (unknown) (no (unknown) (unknown) Chloride 96 L (units ( unknown) date) unknown) (unknown) (no (unknown) (unknown) Chloride (units (unkno wn) date) unknown) (unknown) (no (unknown) (unknown) Confirmed (units (unkn own) date) 07/13/19] unknown) (unknown) (no (unknown) (unknown) Consent obtained (units (unknown) date) for unknown) tele-chicken boner care: Yes (unknown) (no (unknown) (unknown) Consult details (units (unknown) date) unknown) (unknown) (no (unknown) (unknown) Creatinine 1.60 H (units (unknown) date) unknown) (unknown) (no (unknown) (unknown) Creatinine (units (unk nown) date) unknown) (unknown) (no (unknown) (unknown) Critical Care (units ( unknown) date) time: unknown) (unknown) (no (unknown) (unknown) Current (units (unkno wn) date) Medications unknown) (unknown) (no (unknown) (unknown) D-Dimer 821 H (units ( unknown) date) unknown) (unknown) (no (unknown) (unknown) D-Dimer (units (unkno wn) date) unknown) (unknown) (no (unknown) (unknown) : 1950 (units (unknown) date) Acct:[id number] unknown) (unknown) (no (unknown) (unknown) Date Patient Seen: (units (unknown) date) 02/01/22 unknown) (unknown) (no (unknown) (unknown) Date of Service: (units (unknown) date) 01/31/22 unknown) (unknown) (no (unknown) (unknown) Eos % (Auto) Not (units (unknown) date) Reportable unknown) (unknown) (no (unknown) (unknown) Eos % (Auto) (units (u nknown) date) unknown) (unknown) (no (unknown) (unknown) Estimated GFR 45 L (units (unknown) date) unknown) (unknown) (no (unknown) (unknown) Estimated GFR (units ( unknown) date) unknown) (unknown) (no (unknown) (unknown) Exam Narrative: (units (unknown) date) unknown) (unknown) (no (unknown) (unknown) Exam (units (unkno wn) date) unknown) (unknown) (no (unknown) (unknown) Fentanyl 1,000 (units (unknown) date) mcg/ Dextrose 250 unknown) mls @ 16.114 mls/hr 01/31/22 23:15 02/01/22 (unknown) (no (unknown) (unknown) Generic Name Dose (units (unknown) date) Route Start Last unknown) Admin (unknown) (no (unknown) (unknown) Globulin 3.4 (units (u nknown) date) unknown) (unknown) (no (unknown) (unknown) Globulin (units (unkno wn) date) unknown) (unknown) (no (unknown) (unknown) Glucose 262 H (units ( unknown) date) unknown) (unknown) (no (unknown) (unknown) Glucose (units (unkno wn) date) unknown) (unknown) (no (unknown) (unknown) Hct 38.2 L (units (unk nown) date) unknown) (unknown) (no (unknown) (unknown) Hct (units (unkno wn) date) unknown) (unknown) (no (unknown) (unknown) Hgb 13.3 L (units (unk nown) date) unknown) (unknown) (no (unknown) (unknown) Hgb (units (unkno wn) date) unknown) (unknown) (no (unknown) (unknown) History of Present (units (unknown) date) Illness unknown) (unknown) (no (unknown) (unknown) History of kidney (units (unknown) date) stones unknown) (unknown) (no (unknown) (unknown) Home Medications (units (unknown) date) unknown) (unknown) (no (unknown) (unknown) Hyperlipidemia (units (unknown) date) unknown) (unknown) (no (unknown) (unknown) Hypertension (units (u nknown) date) unknown) (unknown) (no (unknown) (unknown) I spent a total of (units (unknown) date) [] minutes of unknown) critical care time on this patient's care (unknown) (no (unknown) (unknown) IF CAMERA (units (unkn own) date) ACTIVATED, patient unknown) seen via real-time interactive audiovisual (unknown) (no (unknown) (unknown) INR 1.6 H (units (unkn own) date) unknown) (unknown) (no (unknown) (unknown) INR (units (unkno wn) date) unknown) (unknown) (no (unknown) (unknown) IV 0.7 mcg/kg/hr (units (unknown) date) unknown) (unknown) (no (unknown) (unknown) [facility] (units (unknown) date) [address] unknown) [place] [address] (unknown) (no (unknown) (unknown) Kidney stones (units ( unknown) date) unknown) (unknown) (no (unknown) (unknown) LTVV (units (unkno wn) date) unknown) (unknown) (no (unknown) (unknown) Laboratory Results (units (unknown) date) - last 24 hr unknown) (unknown) (no (unknown) (unknown) Labs (units (unkno wn) date) unknown) (unknown) (no (unknown) (unknown) Labs: (units (unkno wn) date) unknown) (unknown) (no (unknown) (unknown) Lactate 3.0 H (units ( unknown) date) unknown) (unknown) (no (unknown) (unknown) Lactate 5.3 H* (units (unknown) date) unknown) (unknown) (no (unknown) (unknown) Lactate (units (unkno wn) date) unknown) (unknown) (no (unknown) (unknown) Lactic acidosis (units (unknown) date) unknown) (unknown) (no (unknown) (unknown) Lymph # (Auto) Not (units (unknown) date) Reportable unknown) (unknown) (no (unknown) (unknown) Lymph # (Auto) (units (unknown) date) unknown) (unknown) (no (unknown) (unknown) Lymph % (Auto) Not (units (unknown) date) Reportable unknown) (unknown) (no (unknown) (unknown) Lymph % (Auto) (units (unknown) date) unknown) (unknown) (no (unknown) (unknown) Lymphocytes % (units ( unknown) date) (Manual) 5.0 L unknown) (unknown) (no (unknown) (unknown) Lymphocytes % (units ( unknown) date) (Manual) unknown) (unknown) (no (unknown) (unknown) [id number] (units (unk nown) date) unknown) (unknown) (no (unknown) (unknown) MCH 28.5 (units (unkno wn) date) unknown) (unknown) (no (unknown) (unknown) MCH (units (unkno wn) date) unknown) (unknown) (no (unknown) (unknown) MCHC 34.8 (units (unkn own) date) unknown) (unknown) (no (unknown) (unknown) MCHC (units (unkno wn) date) unknown) (unknown) (no (unknown) (unknown) MCV 81.8 (units (unkno wn) date) unknown) (unknown) (no (unknown) (unknown) MCV (units (unkno wn) date) unknown) (unknown) (no (unknown) (unknown) Medical History (units (unknown) date) (Updated 01/31/22 @ unknown) 23:30 by Kyleigh Castellanos MD) (unknown) (no (unknown) (unknown) Medications: (units (u nknown) date) unknown) (unknown) (no (unknown) (unknown) [place] # (Auto) Not (units (unknown) date) Reportable unknown) (unknown) (no (unknown) (unknown) [place] # (Auto) (units ( unknown) date) unknown) (unknown) (no (unknown) (unknown) [place] % (Auto) Not (units (unknown) date) Reportable unknown) (unknown) (no (unknown) (unknown) [place] % (Auto) (units ( unknown) date) unknown) (unknown) (no (unknown) (unknown) Monocytes % (units (un known) date) (Manual) 1.0 L unknown) (unknown) (no (unknown) (unknown) Monocytes % (units (un known) date) (Manual) unknown) (unknown) (no (unknown) (unknown) NPO for now (units (un known) date) unknown) (unknown) (no (unknown) (unknown) Narrative (units (unkn own) date) unknown) (unknown) (no (unknown) (unknown) Narrative: (units (unk nown) date) unknown) (unknown) (no (unknown) (unknown) Neut % (Auto) Not (units (unknown) date) Reportable unknown) (unknown) (no (unknown) (unknown) Neut % (Auto) (units ( unknown) date) unknown) (unknown) (no (unknown) (unknown) Neutrophils # (units ( unknown) date) (Manual) 64537 H unknown) (unknown) (no (unknown) (unknown) Neutrophils # (units ( unknown) date) (Manual) unknown) (unknown) (no (unknown) (unknown) Objective (units (unkn own) date) unknown) (unknown) (no (unknown) (unknown) Other (units (unkno wn) date) participants/roles: unknown) RN, 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 (unknown) (no (unknown) (unknown) Oxygen Delivery (units (unknown) date) Method Room Air unknown) Room Air (unknown) (no (unknown) (unknown) Oxygen Delivery (units (unknown) date) Method Room Air unknown) (unknown) (no (unknown) (unknown) Oxygen Delivery (units (unknown) date) Method unknown) (unknown) (no (unknown) (unknown) PFSH (units (unkno wn) date) unknown) (unknown) (no (unknown) (unknown) PT 18.9 H (units (unkn own) date) unknown) (unknown) (no (unknown) (unknown) PT (units (unkno wn) date) unknown) (unknown) (no (unknown) (unknown) Patient Location: (units (unknown) date) ICU unknown) (unknown) (no (unknown) (unknown) Patient: (units (unkno wn) date) Pascual Padilla unknown) MR#: (unknown) (no (unknown) (unknown) Plt Count 156 (units ( unknown) date) unknown) (unknown) (no (unknown) (unknown) Plt Count (units (unkn own) date) unknown) (unknown) (no (unknown) (unknown) Potassium 3.6 (units ( unknown) date) unknown) (unknown) (no (unknown) (unknown) Potassium (units (unkn own) date) unknown) (unknown) (no (unknown) (unknown) Procalcitonin 4.70 (units (unknown) date) H unknown) (unknown) (no (unknown) (unknown) Procalcitonin (units ( unknown) date) unknown) (unknown) (no (unknown) (unknown) Propofol 1,000 mg (units (unknown) date) in 100 mls @ 2.762 unknown) mls/hr 01/31/22 22:45 01/31/22 23:10 (unknown) (no (unknown) (unknown) Propofol IV 25 (units (unknown) date) mcg/kg/min unknown) (unknown) (no (unknown) (unknown) Protocol (units (unkno wn) date) unknown) (unknown) (no (unknown) (unknown) Provider location (units (unknown) date) (State): [place] unknown) (unknown) (no (unknown) (unknown) Provider: (units (unkn own) date) Oc Pierson MD unknown) (unknown) (no (unknown) (unknown) Pulse Oximetry 100 (units (unknown) date) unknown) (unknown) (no (unknown) (unknown) Pulse Oximetry 81 (units (unknown) date) L unknown) (unknown) (no (unknown) (unknown) Pulse Oximetry 84 (units (unknown) date) L unknown) (unknown) (no (unknown) (unknown) Pulse Oximetry 92 (units (unknown) date) 77 L unknown) (unknown) (no (unknown) (unknown) Pulse Oximetry 94 (units (unknown) date) unknown) (unknown) (no (unknown) (unknown) Pulse Oximetry 96 (units (unknown) date) unknown) (unknown) (no (unknown) (unknown) Pulse Oximetry 97 (units (unknown) date) 95 unknown) (unknown) (no (unknown) (unknown) Pulse Oximetry 97 (units (unknown) date) 96 unknown) (unknown) (no (unknown) (unknown) Pulse Oximetry 98 (units (unknown) date) 95 unknown) (unknown) (no (unknown) (unknown) Pulse Oximetry 98 (units (unknown) date) 97 unknown) (unknown) (no (unknown) (unknown) Pulse Oximetry 98 (units (unknown) date) unknown) (unknown) (no (unknown) (unknown) Pulse Oximetry 99 (units (unknown) date) unknown) (unknown) (no (unknown) (unknown) Pulse Oximetry (units (unknown) date) unknown) (unknown) (no (unknown) (unknown) Pulse Rate 117 H (units (unknown) date) 124 H unknown) (unknown) (no (unknown) (unknown) Pulse Rate 118 H (units (unknown) date) 67 unknown) (unknown) (no (unknown) (unknown) Pulse Rate 119 H (units (unknown) date) 120 H unknown) (unknown) (no (unknown) (unknown) Pulse Rate 119 H (units (unknown) date) unknown) (unknown) (no (unknown) (unknown) Pulse Rate 122 H (units (unknown) date) 116 H unknown) (unknown) (no (unknown) (unknown) Pulse Rate 122 H (units (unknown) date) unknown) (unknown) (no (unknown) (unknown) Pulse Rate 124 H (units (unknown) date) 139 H unknown) (unknown) (no (unknown) (unknown) Pulse Rate 128 H (units (unknown) date) unknown) (unknown) (no (unknown) (unknown) Pulse Rate 143 H (units (unknown) date) unknown) (unknown) (no (unknown) (unknown) Pulse Rate 144 H (units (unknown) date) unknown) (unknown) (no (unknown) (unknown) Pulse Rate 150 H (units (unknown) date) 170 H unknown) (unknown) (no (unknown) (unknown) Pulse Rate 156 H (units (unknown) date) unknown) (unknown) (no (unknown) (unknown) Pulse Rate 162 H (units (unknown) date) unknown) (unknown) (no (unknown) (unknown) Pulse Rate (units (unk nown) date) unknown) (unknown) (no (unknown) (unknown) RBC 4.66 (units (unkno wn) date) unknown) (unknown) (no (unknown) (unknown) RBC Morphology See (units (unknown) date) below unknown) (unknown) (no (unknown) (unknown) RBC Morphology (units (unknown) date) unknown) (unknown) (no (unknown) (unknown) RBC (units (unkno wn) date) unknown) (unknown) (no (unknown) (unknown) RDW 14.0 (units (unkno wn) date) unknown) (unknown) (no (unknown) (unknown) RDW (units (unkno wn) date) unknown) (unknown) (no (unknown) (unknown) Respiratory Rate 0 (units (unknown) date) L unknown) (unknown) (no (unknown) (unknown) Respiratory Rate (units (unknown) date) 22 unknown) (unknown) (no (unknown) (unknown) Respiratory Rate (units (unknown) date) 25 H 42 H unknown) (unknown) (no (unknown) (unknown) Respiratory Rate (units (unknown) date) 25 H unknown) (unknown) (no (unknown) (unknown) Respiratory Rate (units (unknown) date) 30 H unknown) (unknown) (no (unknown) (unknown) Respiratory Rate (units (unknown) date) 31 H unknown) (unknown) (no (unknown) (unknown) Respiratory Rate (units (unknown) date) 35 H unknown) (unknown) (no (unknown) (unknown) Respiratory Rate (units (unknown) date) 37 H unknown) (unknown) (no (unknown) (unknown) Respiratory Rate (units (unknown) date) 39 H 41 H unknown) (unknown) (no (unknown) (unknown) Respiratory Rate (units (unknown) date) 40 H unknown) (unknown) (no (unknown) (unknown) Respiratory Rate (units (unknown) date) 43 H unknown) (unknown) (no (unknown) (unknown) Respiratory Rate (units (unknown) date) 48 H 51 H unknown) (unknown) (no (unknown) (unknown) Respiratory Rate (units (unknown) date) unknown) (unknown) (no (unknown) (unknown) Result Diagrams: (units (unknown) date) unknown) (unknown) (no (unknown) (unknown) SARS-CoV-2 (PCR) (units (unknown) date) Negative unknown) (unknown) (no (unknown) (unknown) SARS-CoV-2 (PCR) (units (unknown) date) unknown) (unknown) (no (unknown) (unknown) Seg Neutrophils % (units (unknown) date) 82.0 H unknown) (unknown) (no (unknown) (unknown) Seg Neutrophils % (units (unknown) date) unknown) (unknown) (no (unknown) (unknown) Septic shock (units (u nknown) date) unknown) (unknown) (no (unknown) (unknown) Signed (units (unkno wn) date) By:<Electronically unknown) signed by Oc Pierson MD> (unknown) (no (unknown) (unknown) Smoking Status: (units (unknown) date) Never smoker unknown) (unknown) (no (unknown) (unknown) Social History (units (unknown) date) (Reviewed 01/31/22 unknown) @ 21:45 by Kyleigh Castellanos MD) (unknown) (no (unknown) (unknown) Sodium 135 L (units (u nknown) date) unknown) (unknown) (no (unknown) (unknown) Sodium (units (unkno wn) date) unknown) (unknown) (no (unknown) (unknown) TITRATE ANGI 13.812 (units (unknown) date) mls/hr unknown) (unknown) (no (unknown) (unknown) TITRATE ANGI 16.114 (units (unknown) date) mls/hr unknown) (unknown) (no (unknown) (unknown) TTE (units (unkno wn) date) unknown) (unknown) (no (unknown) (unknown) 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 (units (unknown) date) Consult Note unknown) (unknown) (no (unknown) (unknown) Temperature 103.5 (units (unknown) date) F H unknown) (unknown) (no (unknown) (unknown) Temperature 103.8 (units (unknown) date) F H unknown) (unknown) (no (unknown) (unknown) Temperature 98.3 F (units (unknown) date) unknown) (unknown) (no (unknown) (unknown) Temperature (units (un known) date) unknown) (unknown) (no (unknown) (unknown) Time Spent With (units (unknown) date) Patient unknown) (unknown) (no (unknown) (unknown) Titration (units (unkn own) date) unknown) (unknown) (no (unknown) (unknown) Total Bilirubin (units (unknown) date) 2.2 H unknown) (unknown) (no (unknown) (unknown) Total Bilirubin (units (unknown) date) unknown) (unknown) (no (unknown) (unknown) Total Counted 100 (units (unknown) date) unknown) (unknown) (no (unknown) (unknown) Total Counted (units ( unknown) date) unknown) (unknown) (no (unknown) (unknown) Total Creatine (units (unknown) date) Kinase 59 unknown) (unknown) (no (unknown) (unknown) Total Creatine (units (unknown) date) Kinase unknown) (unknown) (no (unknown) (unknown) Total Protein 7.6 (units (unknown) date) unknown) (unknown) (no (unknown) (unknown) Total Protein (units ( unknown) date) unknown) (unknown) (no (unknown) (unknown) Trade Name Freq (units (unknown) date) PRN Reason Stop unknown) Dose Admin (unknown) (no (unknown) (unknown) Troponin I 0.608 (units (unknown) date) H* unknown) (unknown) (no (unknown) (unknown) Troponin I 0.924 (units (unknown) date) H* unknown) (unknown) (no (unknown) (unknown) Troponin I (units (unk nown) date) unknown) (unknown) (no (unknown) (unknown) Type 2 diabetes (units (unknown) date) mellitus unknown) (unknown) (no (unknown) (unknown) Ur Culture (units (unk nown) date) Indicated? Specimen unknown) cultured (unknown) (no (unknown) (unknown) Ur Culture (units (unk nown) date) Indicated? unknown) (unknown) (no (unknown) (unknown) Ur Leukocyte (units (u nknown) date) Esterase 2+ H unknown) (unknown) (no (unknown) (unknown) Ur Leukocyte (units (u nknown) date) Esterase unknown) (unknown) (no (unknown) (unknown) Ur Specific (units (un known) date) [place] 1.010 unknown) (unknown) (no (unknown) (unknown) Ur Specific (units (un known) date) [place] unknown) (unknown) (no (unknown) (unknown) Ur Squamous Epith (units (unknown) date) Cells None seen unknown) (unknown) (no (unknown) (unknown) Ur Squamous Epith (units (unknown) date) Cells unknown) (unknown) (no (unknown) (unknown) Urine Appearance (units (unknown) date) Sl cloudy unknown) (unknown) (no (unknown) (unknown) Urine Appearance (units (unknown) date) unknown) (unknown) (no (unknown) (unknown) Urine Bacteria (units (unknown) date) Many (>30) H unknown) (unknown) (no (unknown) (unknown) Urine Bacteria (units (unknown) date) unknown) (unknown) (no (unknown) (unknown) Urine Bilirubin (units (unknown) date) Negative unknown) (unknown) (no (unknown) (unknown) Urine Bilirubin (units (unknown) date) unknown) (unknown) (no (unknown) (unknown) Urine Color Yellow (units (unknown) date) unknown) (unknown) (no (unknown) (unknown) Urine Color (units (un known) date) unknown) (unknown) (no (unknown) (unknown) Urine Glucose (UA) (units (unknown) date) Negative unknown) (unknown) (no (unknown) (unknown) Urine Glucose (UA) (units (unknown) date) unknown) (unknown) (no (unknown) (unknown) Urine Ketones (units ( unknown) date) Negative unknown) (unknown) (no (unknown) (unknown) Urine Ketones (units ( unknown) date) unknown) (unknown) (no (unknown) (unknown) Urine Nitrate (units ( unknown) date) Negative unknown) (unknown) (no (unknown) (unknown) Urine Nitrate (units ( unknown) date) unknown) (unknown) (no (unknown) (unknown) Urine Occult Blood (units (unknown) date) 1+ H unknown) (unknown) (no (unknown) (unknown) Urine Occult Blood (units (unknown) date) unknown) (unknown) (no (unknown) (unknown) Urine Protein 1+ H (units (unknown) date) unknown) (unknown) (no (unknown) (unknown) Urine Protein (units ( unknown) date) unknown) (unknown) (no (unknown) (unknown) Urine RBC 0-1/hpf (units (unknown) date) unknown) (unknown) (no (unknown) (unknown) Urine RBC (units (unkn own) date) unknown) (unknown) (no (unknown) (unknown) Urine Urobilinogen (units (unknown) date) 0.2 unknown) (unknown) (no (unknown) (unknown) Urine Urobilinogen (units (unknown) date) unknown) (unknown) (no (unknown) (unknown) Urine WBC (units (unkn own) date) 30-100/hpf H unknown) (unknown) (no (unknown) (unknown) Urine WBC (units (unkn own) date) unknown) (unknown) (no (unknown) (unknown) Urine pH 5.0 (units (u nknown) date) unknown) (unknown) (no (unknown) (unknown) Urine pH (units (unkno wn) date) unknown) (unknown) (no (unknown) (unknown) Visit Medications (units (unknown) date) (administered) unknown) (unknown) (no (unknown) (unknown) Vital Signs (units (un known) date) unknown) (unknown) (no (unknown) (unknown) WBC 29.1 H (units (unk nown) date) unknown) (unknown) (no (unknown) (unknown) WBC (units (unkno wn) date) unknown) (unknown) (no (unknown) (unknown) [Embedded Image (units (unknown) date) Not Available] unknown) (unknown) (no (unknown) (unknown) abdominal pain - (units (unknown) date) found to have unknown) pyelonephritis in ED. PAtient entered septic (unknown) (no (unknown) (unknown) acute metabolic (units (unknown) date) encephalopathy unknown) (unknown) (no (unknown) (unknown) acute renal (units (un known) date) failure unknown) (unknown) (no (unknown) (unknown) acute respiratory (units (unknown) date) failure unknown) (unknown) (no (unknown) (unknown) alcohol intake: (units (unknown) date) current unknown) (unknown) (no (unknown) (unknown) amlodipine 10 mg (units (unknown) date) tablet 10 mg PO unknown) DAILY 01/27/18 [History Confirmed 07/13/19] (unknown) (no (unknown) (unknown) bandemia (units (unkno wn) date) unknown) (unknown) (no (unknown) (unknown) chlorthalidone 50 (units (unknown) date) mg tablet 50 mg PO unknown) DAILY 01/27/18 [History Confirmed 07/13/19] (unknown) (no (unknown) (unknown) communication: (units (unknown) date) Camera activated unknown) (unknown) (no (unknown) (unknown) continued (units (unkn own) date) unknown) (unknown) (no (unknown) (unknown) dvt ppx (units (unkno wn) date) unknown) (unknown) (no (unknown) (unknown) empric abx - (units (u nknown) date) cefepime/vancomcin, unknown) given findings of aspiration flagyl can b (unknown) (no (unknown) (unknown) encephalopahty - (units (unknown) date) now intubated. unknown) Urology called for f/u and possible removal of (unknown) (no (unknown) (unknown) exenatide (units (unkn own) date) microspheres 2 unknown) mg/0.85 mL subcutaneous auto-injector ([place] BCise) (unknown) (no (unknown) (unknown) f/u reddy cx (units (unk nown) date) unknown) (unknown) (no (unknown) (unknown) f/u urology (units (un known) date) unknown) (unknown) (no (unknown) (unknown) fenofibrate (units (un known) date) nanocrystallized unknown) 145 mg tablet 145 mg PO DAILY 07/05/19 [History (unknown) (no (unknown) (unknown) heparin drip is (units (unknown) date) indicated at this unknown) time. EKG is ordered to see if any changes. (unknown) (no (unknown) (unknown) hours of (units (unkno wn) date) increasing fevers, unknown) fatigue, overall altered mental status, increasing (unknown) (no (unknown) (unknown) household members: (units (unknown) date) spouse unknown) (unknown) (no (unknown) (unknown) insulin glargine (units (unknown) date) 100 unit/mL (3 mL) unknown) subcutaneous pen 26 units SUBCUT DAILY (unknown) (no (unknown) (unknown) losartan 100 mg (units (unknown) date) tablet 100 mg PO unknown) DAILY 01/27/18 [History Confirmed 07/13/19] (unknown) (no (unknown) (unknown) map goal >65 (units (u nknown) date) unknown) (unknown) (no (unknown) (unknown) metformin 500 mg (units (unknown) date) tablet 500 mg PO unknown) BID 01/27/18 [History Confirmed 07/13/19] (unknown) (no (unknown) (unknown) monitor UO (units (unk nown) date) unknown) (unknown) (no (unknown) (unknown) oxycodone 5 mg (units (unknown) date) capsule 5 mg PO Q4H unknown) PRN pain #14 caps 07/13/19 [Rx] (unknown) (no (unknown) (unknown) phenylephrin adn (units (unknown) date) vasopressin 0 was unknown) very tachycardic in ED, likely related to (unknown) (no (unknown) (unknown) popssible probable (units (unknown) date) gram neg pna from unknown) aspiration (unknown) (no (unknown) (unknown) pyelonephritis , (units (unknown) date) possible infected unknown) stent (unknown) (no (unknown) (unknown) rosuvastatin 40 mg (units (unknown) date) tablet 40 mg PO unknown) DAILY 07/05/19 [History Confirmed 07/13/19] (unknown) (no (unknown) (unknown) shock in ED and (units (unknown) date) had worsening SOB unknown) related to IVF resuscitaiton and metabolic (unknown) (no (unknown) (unknown) stent given (units (un known) date) likelyhood on unknown) infected stent. (unknown) (no (unknown) (unknown) stones - s/p stent (units (unknown) date) placement in 2019 unknown) without any f/u in 2 years presents with 12 (unknown) (no (unknown) (unknown) surrogate for exam (units (unknown) date) is primary team unknown) (unknown) (no (unknown) (unknown) tamsulosin 0.4 mg (units (unknown) date) capsule 0.4 mg PO unknown) DAILY #60 caps 07/13/19 [Rx Confirmed (unknown) (no (unknown) (unknown) today; this time (units (unknown) date) is exclusive of unknown) procedural time. (unknown) (no (unknown) (unknown) total Critical (units (unknown) date) care time = 74 min unknown) (unknown) (no (unknown) (unknown) trend ABG (units (unkn own) date) unknown) (unknown) (no (unknown) (unknown) trend LA (units (unkno wn) date) unknown) (unknown) (no (unknown) (unknown) trend bmp (units (unkn own) date) unknown) (unknown) (no (unknown) (unknown) trend cbc (units (unkn own) date) unknown) (unknown) (no (unknown) (unknown) udnersedation , (units (unknown) date) but will focus on unknown) less arrthymogenic agents for now (unknown) (no (unknown) (unknown) vent/sedation (units ( unknown) date) bundle unknown) (unknown) (no (unknown) (unknown) wean down fio2 (units (unknown) date) unknown) Result panel 41 (unknown) (no date) (unknown) (unknown) 1 (units (unkn own) unknown) (unknown) (no date) (unknown) (unknown) 100 (units (unkn own) unknown) (unknown) (no date) (unknown) (unknown) 12.6 g/dl (unkn own) (unknown) (no date) (unknown) (unknown) 14.3 % (unkn own) (unknown) (no date) (unknown) (unknown) 18.0 % (unkn own) (unknown) (no date) (unknown) (unknown) 2.0 % (unkn own) (unknown) (no date) (unknown) (unknown) 209 x10 3/ul (unkn own) (unknown) (no date) (unknown) (unknown) 28.4 pg (unkn own) (unknown) (no date) (unknown) (unknown) 33.7 % (unkn own) (unknown) (no date) (unknown) (unknown) 37.4 % (unkn own) (unknown) (no date) (unknown) (unknown) 4.44 x10 6/ul (unkn own) (unknown) (no date) (unknown) (unknown) 63378 /ul (unkn own) (unknown) (no date) (unknown) (unknown) 46.5 x10 3/ul (unkn own) (unknown) (no date) (unknown) (unknown) 46.5 x10 3/ul (unkn own) (unknown) (no date) (unknown) (unknown) 6.0 % (unkn own) (unknown) (no date) (unknown) (unknown) 74.0 % (unkn own) (unknown) (no date) (unknown) (unknown) 84.4 fl (unkn own) (unknown) (no date) (unknown) (unknown) See Below (units (unk nown) unknown) Result panel 42 (unknown) (no date) (unknown) (unknown) -14.0 mmol/l (unkn own) (unknown) (no date) (unknown) (unknown) 100 (units unknown) (unknown) (unknown) (no date) (unknown) (unknown) 100 % (unkn own) (unknown) (no date) (unknown) (unknown) 14 mmol/l (unkn own) (unknown) (no date) (unknown) (unknown) 15 mmol/l (unkn own) (unknown) (no date) (unknown) (unknown) 302 mmhg (unkn own) (unknown) (no date) (unknown) (unknown) 302 mmhg (unkn own) (unknown) (no date) (unknown) (unknown) 32.6 mmhg (unkn own) (unknown) (no date) (unknown) (unknown) 7.24 (units unknown) (unknown) (unknown) (no date) (unknown) (unknown) 7.24 (units unknown) (unknown) Result panel 43 (unknown) (no (unknown) (unknown) (no value) (units (unk nown) date) unknown) (unknown) (no (unknown) (unknown) ([place] BCise) (units (unknown) date) unknown) (unknown) (no (unknown) (unknown) (past 8 hours): (units (unknown) date) unknown) (unknown) (no (unknown) (unknown) * Case has been (units (unknown) date) discussed with Dr. azevedo) Sung. I was informed that they are (unknown) (no (unknown) (unknown) * Continue to (units ( unknown) date) follow lactates, unknown) cbc and bmp until it normalizes (unknown) (no (unknown) (unknown) * Continue to (units ( unknown) date) trend troponins q.6 unknown) hours, it has started to trend down which is (unknown) (no (unknown) (unknown) * D-dimer was (units ( unknown) date) approximately 821 unknown) however CTA of the chest was negative for a (unknown) (no (unknown) (unknown) * Likely due to (units (unknown) date) volume overload unknown) with saline boluses and continued fluids which (unknown) (no (unknown) (unknown) * Patient does not (units (unknown) date) have a documented unknown) history in our system for coronary artery (unknown) (no (unknown) (unknown) * Patient was (units ( unknown) date) initially started unknown) on IV ceftriaxone and Flagyl (unknown) (no (unknown) (unknown) * Patient will be (units (unknown) date) receiving unknown) phenylephrine and vasopressin per chicken boner goal (unknown) (no (unknown) (unknown) * This is been (units (unknown) date) changed to empiric unknown) IV cefepime and IV vanco, Flagyl will be (unknown) (no (unknown) (unknown) * Will likely need (units (unknown) date) an echocardiogram unknown) tomorrow sometime to assess for congestive (unknown) (no (unknown) (unknown) ADDENDUM (units (u nknown) date) unknown) (unknown) (no (unknown) (unknown) 01/31/22 01/31/22 (units (unknown) date) 01/31/22 unknown) (unknown) (no (unknown) (unknown) 01/31/22 20:00 (units (unknown) date) unknown) (unknown) (no (unknown) (unknown) 01/31/22 (units (unkno wn) date) unknown) (unknown) (no (unknown) (unknown) 02/01/22 0113 (units ( unknown) date) unknown) (unknown) (no (unknown) (unknown) 02/01/22 0709 (units ( unknown) date) unknown) (unknown) (no (unknown) (unknown) 160s dropping it (units (unknown) date) down into the 130s. unknown) They stated that his blood pressure (unknown) (no (unknown) (unknown) 19:06 01/31/22 (units (unknown) date) unknown) (unknown) (no (unknown) (unknown) 19:19 01/31/22 (units (unknown) date) unknown) (unknown) (no (unknown) (unknown) 19:20 01/31/22 (units (unknown) date) unknown) (unknown) (no (unknown) (unknown) 19:20 (units (unkno wn) date) unknown) (unknown) (no (unknown) (unknown) 19:30 01/31/22 (units (unknown) date) unknown) (unknown) (no (unknown) (unknown) 19:30 (units (unkno wn) date) unknown) (unknown) (no (unknown) (unknown) 20:00 01/31/22 (units (unknown) date) unknown) (unknown) (no (unknown) (unknown) 20:00 20:00 20:00 (units (unknown) date) unknown) (unknown) (no (unknown) (unknown) 20:14 22:13 22:13 (units (unknown) date) unknown) (unknown) (no (unknown) (unknown) 20:30 01/31/22 (units (unknown) date) unknown) (unknown) (no (unknown) (unknown) 20:30 (units (unkno wn) date) unknown) (unknown) (no (unknown) (unknown) 20:45 01/31/22 (units (unknown) date) unknown) (unknown) (no (unknown) (unknown) 21:07 (units (unkno wn) date) unknown) (unknown) (no (unknown) (unknown) 21:11 01/31/22 (units (unknown) date) unknown) (unknown) (no (unknown) (unknown) 21:15 01/31/22 (units (unknown) date) unknown) (unknown) (no (unknown) (unknown) 21:30 01/31/22 (units (unknown) date) unknown) (unknown) (no (unknown) (unknown) 21:30 (units (unkno wn) date) unknown) (unknown) (no (unknown) (unknown) 21:46 01/31/22 (units (unknown) date) unknown) (unknown) (no (unknown) (unknown) 21:46 (units (unkno wn) date) unknown) (unknown) (no (unknown) (unknown) 22:00 01/31/22 (units (unknown) date) unknown) (unknown) (no (unknown) (unknown) 22:05 (units (unkno wn) date) unknown) (unknown) (no (unknown) (unknown) 22:15 01/31/22 (units (unknown) date) unknown) (unknown) (no (unknown) (unknown) 22:15 (units (unkno wn) date) unknown) (unknown) (no (unknown) (unknown) 22:21 01/31/22 (units (unknown) date) unknown) (unknown) (no (unknown) (unknown) 22:21 (units (unkno wn) date) unknown) (unknown) (no (unknown) (unknown) 22:30 01/31/22 (units (unknown) date) unknown) (unknown) (no (unknown) (unknown) 22:30 (units (unkno wn) date) unknown) (unknown) (no (unknown) (unknown) 22:40 01/31/22 (units (unknown) date) unknown) (unknown) (no (unknown) (unknown) 22:45 01/31/22 (units (unknown) date) unknown) (unknown) (no (unknown) (unknown) 22:45 (units (unkno wn) date) unknown) (unknown) (no (unknown) (unknown) 22:49 01/31/22 (units (unknown) date) unknown) (unknown) (no (unknown) (unknown) 22:50 (units (unkno wn) date) unknown) (unknown) (no (unknown) (unknown) 22:52 01/31/22 (units (unknown) date) unknown) (unknown) (no (unknown) (unknown) 22:55 01/31/22 (units (unknown) date) unknown) (unknown) (no (unknown) (unknown) 23:00 01/31/22 (units (unknown) date) unknown) (unknown) (no (unknown) (unknown) 23:00 (units (unkno wn) date) unknown) (unknown) (no (unknown) (unknown) 23:06 01/31/22 (units (unknown) date) unknown) (unknown) (no (unknown) (unknown) 23:10 01/31/22 (units (unknown) date) unknown) (unknown) (no (unknown) (unknown) 23:10 (units (unkno wn) date) unknown) (unknown) (no (unknown) (unknown) 23:15 (units (unkno wn) date) unknown) (unknown) (no (unknown) (unknown) ALT 16 (units (unkno wn) date) unknown) (unknown) (no (unknown) (unknown) ALT (units (unkno wn) date) unknown) (unknown) (no (unknown) (unknown) APTT 31 (units (unkno wn) date) unknown) (unknown) (no (unknown) (unknown) APTT (units (unkno wn) date) unknown) (unknown) (no (unknown) (unknown) AST 31 (units (unkno wn) date) unknown) (unknown) (no (unknown) (unknown) AST (units (unkno wn) date) unknown) (unknown) (no (unknown) (unknown) Abd: soft, (units (unk nown) date) non-tender, unknown) normoactive BTs (unknown) (no (unknown) (unknown) Addendum (units (unkno wn) date) Documented By: unknown) Modesta Thompson (unknown) (no (unknown) (unknown) Addendum Signed (units (unknown) date) By: <Electronically unknown) signed by Modesta Thompson> (unknown) (no (unknown) (unknown) Age/Sex: 71 / M (units (unknown) date) unknown) (unknown) (no (unknown) (unknown) Albumin 4.2 (units (un known) date) unknown) (unknown) (no (unknown) (unknown) Albumin (units (unkno wn) date) unknown) (unknown) (no (unknown) (unknown) Albumin/Globulin (units (unknown) date) Ratio 1.2 unknown) (unknown) (no (unknown) (unknown) Albumin/Globulin (units (unknown) date) Ratio unknown) (unknown) (no (unknown) (unknown) Alkaline (units (unkno wn) date) Phosphatase 66 unknown) (unknown) (no (unknown) (unknown) Alkaline (units (unkno wn) date) Phosphatase unknown) (unknown) (no (unknown) (unknown) Allergies (units (unkn own) date) unknown) (unknown) (no (unknown) (unknown) Allergy/AdvReac (units (unknown) date) Type Severity unknown) Reaction Status Date / Time (unknown) (no (unknown) (unknown) Anisocytosis 1+ H (units (unknown) date) unknown) (unknown) (no (unknown) (unknown) Anisocytosis (units (u nknown) date) unknown) (unknown) (no (unknown) (unknown) Assessment + Plan (units (unknown) date) narrative: unknown) (unknown) (no (unknown) (unknown) Assessment + Plan (units (unknown) date) unknown) (unknown) (no (unknown) (unknown) At that time he (units (unknown) date) was given 5 mg of unknown) IV metoprolol as his heart rate was in the (unknown) (no (unknown) (unknown) BUN 22 H (units (unkno wn) date) unknown) (unknown) (no (unknown) (unknown) BUN (units (unkno wn) date) unknown) (unknown) (no (unknown) (unknown) BUN/Creatinine (units (unknown) date) Ratio 13.8 unknown) (unknown) (no (unknown) (unknown) BUN/Creatinine (units (unknown) date) Ratio unknown) (unknown) (no (unknown) (unknown) Band Neutrophils % (units (unknown) date) 12.0 H unknown) (unknown) (no (unknown) (unknown) Band Neutrophils % (units (unknown) date) unknown) (unknown) (no (unknown) (unknown) Baso # (Auto) Not (units (unknown) date) Reportable unknown) (unknown) (no (unknown) (unknown) Baso # (Auto) (units ( unknown) date) unknown) (unknown) (no (unknown) (unknown) Baso % (Auto) Not (units (unknown) date) Reportable unknown) (unknown) (no (unknown) (unknown) Baso % (Auto) (units ( unknown) date) unknown) (unknown) (no (unknown) (unknown) Been Physically (units (unknown) date) Hurt or No unknown) (unknown) (no (unknown) (unknown) Blood Pressure (units (unknown) date) 115/69 120/75 unknown) 128/77 (unknown) (no (unknown) (unknown) Blood Pressure (units (unknown) date) 127/80 unknown) (unknown) (no (unknown) (unknown) Blood Pressure (units (unknown) date) 128/76 160/104 H unknown) (unknown) (no (unknown) (unknown) Blood Pressure (units (unknown) date) 132/79 unknown) (unknown) (no (unknown) (unknown) Blood Pressure (units (unknown) date) 134/75 139/80 unknown) (unknown) (no (unknown) (unknown) Blood Pressure (units (unknown) date) 136/78 unknown) (unknown) (no (unknown) (unknown) Blood Pressure (units (unknown) date) 137/76 unknown) (unknown) (no (unknown) (unknown) Blood Pressure (units (unknown) date) 138/78 146/84 H unknown) (unknown) (no (unknown) (unknown) Blood Pressure (units (unknown) date) 147/79 H unknown) (unknown) (no (unknown) (unknown) Blood Pressure (units (unknown) date) 150/100 H unknown) (unknown) (no (unknown) (unknown) Blood Pressure (units (unknown) date) 153/77 H 128/76 unknown) (unknown) (no (unknown) (unknown) Blood Pressure (units (unknown) date) 153/93 H 113/68 unknown) (unknown) (no (unknown) (unknown) Blood Pressure (units (unknown) date) 159/99 H 139/80 unknown) (unknown) (no (unknown) (unknown) Blood Pressure (units (unknown) date) 174/114 H unknown) (unknown) (no (unknown) (unknown) Blood Pressure (units (unknown) date) 206/130 H 170/100 H unknown) (unknown) (no (unknown) (unknown) CK-MB (CK-2) Rel (units (unknown) date) Index TNP unknown) (unknown) (no (unknown) (unknown) CK-MB (CK-2) Rel (units (unknown) date) Index unknown) (unknown) (no (unknown) (unknown) CK-MB (CK-2) TNP (units (unknown) date) unknown) (unknown) (no (unknown) (unknown) CK-MB (CK-2) (units (u nknown) date) unknown) (unknown) (no (unknown) (unknown) CV: RRR, no murmur (units (unknown) date) or rubs unknown) (unknown) (no (unknown) (unknown) Calcium 8.1 L (units ( unknown) date) unknown) (unknown) (no (unknown) (unknown) Calcium (units (unkno wn) date) unknown) (unknown) (no (unknown) (unknown) Carbon Dioxide 23 (units (unknown) date) unknown) (unknown) (no (unknown) (unknown) Carbon Dioxide (units (unknown) date) unknown) (unknown) (no (unknown) (unknown) Chief complaint: (units (unknown) date) Vomiting, Stomach unknown) cramps, SOB (unknown) (no (unknown) (unknown) Chloride 96 L (units ( unknown) date) unknown) (unknown) (no (unknown) (unknown) Chloride (units (unkno wn) date) unknown) (unknown) (no (unknown) (unknown) Clinical reason (units (unknown) date) for NOT initiating unknown) fluid bolus: (unknown) (no (unknown) (unknown) Code status: Full (units (unknown) date) code presumed with unknown) patient's acting as his surrogate and (unknown) (no (unknown) (unknown) Consultants (units (unknown) date) Sung, urology unknown) and [facility], care and involvement in the (unknown) (no (unknown) (unknown) Creatinine 1.60 H (units (unknown) date) unknown) (unknown) (no (unknown) (unknown) Creatinine (units (unk nown) date) unknown) (unknown) (no (unknown) (unknown) Critical Care (units ( unknown) date) time: unknown) (unknown) (no (unknown) (unknown) D-Dimer 821 H (units ( unknown) date) unknown) (unknown) (no (unknown) (unknown) D-Dimer (units (unkno wn) date) unknown) (unknown) (no (unknown) (unknown) : 1950 (units (unknown) date) Acct:[id number] unknown) (unknown) (no (unknown) (unknown) Date Patient Seen: (units (unknown) date) 02/01/22 unknown) (unknown) (no (unknown) (unknown) Date of Service: (units (unknown) date) 01/31/22 unknown) (unknown) (no (unknown) (unknown) Deep Vein (units (unkn own) date) Thrombosis/Pulmonar unknown) y Embolism Present on Admission: No (unknown) (no (unknown) (unknown) Dispo: Unknown at (units (unknown) date) this time unknown) (unknown) (no (unknown) (unknown) ED provider per (units (unknown) date) her note stated unknown) that he denied any cough, chest pain, (unknown) (no (unknown) (unknown) Elevated D-dimer (units (unknown) date) with sudden onset unknown) hypoxia, acute, present on admission (unknown) (no (unknown) (unknown) Elevated troponin, (units (unknown) date) acute, present on unknown) admission (unknown) (no (unknown) (unknown) Environment (units (un known) date) unknown) (unknown) (no (unknown) (unknown) Eos % (Auto) Not (units (unknown) date) Reportable unknown) (unknown) (no (unknown) (unknown) Eos % (Auto) (units (u nknown) date) unknown) (unknown) (no (unknown) (unknown) Estimated GFR 45 L (units (unknown) date) unknown) (unknown) (no (unknown) (unknown) Estimated GFR (units ( unknown) date) unknown) (unknown) (no (unknown) (unknown) Exam Narrative: (units (unknown) date) unknown) (unknown) (no (unknown) (unknown) Exam (units (unkno wn) date) unknown) (unknown) (no (unknown) (unknown) Extremities: Cool (units (unknown) date) and dry patient is unknown) immobile. (unknown) (no (unknown) (unknown) FEN: IV fluids: (units (unknown) date) Saline lock, has unknown) multiple drips, diet: NPO, labs: CBC, C/BMP, (unknown) (no (unknown) (unknown) Family + Social (units (unknown) date) History unknown) (unknown) (no (unknown) (unknown) Family history (units (unknown) date) unavailable: Yes unknown) (unknown) (no (unknown) (unknown) Feels Safe in (units ( unknown) date) Current Yes unknown) (unknown) (no (unknown) (unknown) Flash pulmonary (units (unknown) date) edema seen on x-ray unknown) (unknown) (no (unknown) (unknown) : Ramírez draining (units (unknown) date) bloody urine unknown) (unknown) (no (unknown) (unknown) Gen: Sedated, (units ( unknown) date) critically unknown) ill-appearing 71 y.o. male, on a ventilator (unknown) (no (unknown) (unknown) Globulin 3.4 (units (u nknown) date) unknown) (unknown) (no (unknown) (unknown) Globulin (units (unkno wn) date) unknown) (unknown) (no (unknown) (unknown) Glucose 262 H (units ( unknown) date) unknown) (unknown) (no (unknown) (unknown) Glucose (units (unkno wn) date) unknown) (unknown) (no (unknown) (unknown) Goal directed (units ( unknown) date) therapy within 3 unknown) hours of septic shock or initial hypotension (unknown) (no (unknown) (unknown) Goal directed (units ( unknown) date) treatment unknown) (unknown) (no (unknown) (unknown) HEENT: (units (unkno wn) date) normocephalic, unknown) atraumatic, conjunctiva clear, sclera non-icteric, oral (unknown) (no (unknown) (unknown) Hct 38.2 L (units (unk nown) date) unknown) (unknown) (no (unknown) (unknown) Hct (units (unkno wn) date) unknown) (unknown) (no (unknown) (unknown) He has a history (units (unknown) date) of kidney stones unknown) and the abdominal CT scan indicated a double (unknown) (no (unknown) (unknown) Hgb 13.3 L (units (unk nown) date) unknown) (unknown) (no (unknown) (unknown) Hgb (units (unkno wn) date) unknown) (unknown) (no (unknown) (unknown) His lactate was (units (unknown) date) elevated at 3.0 and unknown) is now increased to 5.3. He also had an (unknown) (no (unknown) (unknown) History + Physical (units (unknown) date) Report unknown) (unknown) (no (unknown) (unknown) History of Present (units (unknown) date) Illness unknown) (unknown) (no (unknown) (unknown) History of kidney (units (unknown) date) stones unknown) (unknown) (no (unknown) (unknown) Home Medications (units (unknown) date) and Allergies unknown) (unknown) (no (unknown) (unknown) Home Medications (units (unknown) date) unknown) (unknown) (no (unknown) (unknown) Hyperlipidemia (units (unknown) date) unknown) (unknown) (no (unknown) (unknown) Hypertension (units (u nknown) date) unknown) (unknown) (no (unknown) (unknown) Hypotension (units (un known) date) associated with unknown) sepsis, acute, present on admission (unknown) (no (unknown) (unknown) I confirm the (units (u nknown) date) patient?s Advance unknown) Care Plan is present, Code status is documented, (unknown) (no (unknown) (unknown) I spent a total of (units (unknown) date) 85 minutes of unknown) critical care time on this patient's care (unknown) (no (unknown) (unknown) INR 1.6 H (units (unkn own) date) unknown) (unknown) (no (unknown) (unknown) INR (units (unkno wn) date) unknown) (unknown) (no (unknown) (unknown) [facility] (units (unknown) date) [address] unknown) [place] [address] (unknown) (no (unknown) (unknown) Kidney stones (units ( unknown) date) unknown) (unknown) (no (unknown) (unknown) Laboratory Results (units (unknown) date) - last 24 hr unknown) (unknown) (no (unknown) (unknown) Labs (units (unkno wn) date) unknown) (unknown) (no (unknown) (unknown) Labs: (units (unkno wn) date) unknown) (unknown) (no (unknown) (unknown) Lactate 3.0 H (units ( unknown) date) unknown) (unknown) (no (unknown) (unknown) Lactate (units (unkno wn) date) unknown) (unknown) (no (unknown) (unknown) Lymph # (Auto) Not (units (unknown) date) Reportable unknown) (unknown) (no (unknown) (unknown) Lymph # (Auto) (units (unknown) date) unknown) (unknown) (no (unknown) (unknown) Lymph % (Auto) Not (units (unknown) date) Reportable unknown) (unknown) (no (unknown) (unknown) Lymph % (Auto) (units (unknown) date) unknown) (unknown) (no (unknown) (unknown) Lymphocytes % (units ( unknown) date) (Manual) 5.0 L unknown) (unknown) (no (unknown) (unknown) Lymphocytes % (units ( unknown) date) (Manual) unknown) (unknown) (no (unknown) (unknown) [id number] (units (unk nown) date) unknown) (unknown) (no (unknown) (unknown) MAP of 65. (units (unk nown) date) unknown) (unknown) (no (unknown) (unknown) MCH 28.5 (units (unkno wn) date) unknown) (unknown) (no (unknown) (unknown) MCH (units (unkno wn) date) unknown) (unknown) (no (unknown) (unknown) MCHC 34.8 (units (unkn own) date) unknown) (unknown) (no (unknown) (unknown) MCHC (units (unkno wn) date) unknown) (unknown) (no (unknown) (unknown) MCV 81.8 (units (unkno wn) date) unknown) (unknown) (no (unknown) (unknown) MCV (units (unkno wn) date) unknown) (unknown) (no (unknown) (unknown) MIPS - Admit (units (u nknown) date) unknown) (unknown) (no (unknown) (unknown) MIPS - DC (units (unkn own) date) unknown) (unknown) (no (unknown) (unknown) Pascual Padilla (units (unknown) date) is admitted to the unknown) intensive care unit due to severe sepsis (unknown) (no (unknown) (unknown) Pascual Mccormick (units (unknown) date) is a 71 y.o. male unknown) with a history of ?type 2 diabetes, (unknown) (no (unknown) (unknown) Medical History (units (unknown) date) (Reviewed 02/01/22 unknown) @ 00:45 by FATEMEH Roberts) (unknown) (no (unknown) (unknown) Medication (units (unk nown) date) Instructions unknown) Recorded Confirmed Type (unknown) (no (unknown) (unknown) Meds (units (unkno wn) date) unknown) (unknown) (no (unknown) (unknown) [place] # (Auto) Not (units (unknown) date) Reportable unknown) (unknown) (no (unknown) (unknown) [place] # (Auto) (units ( unknown) date) unknown) (unknown) (no (unknown) (unknown) [place] % (Auto) Not (units (unknown) date) Reportable unknown) (unknown) (no (unknown) (unknown) [place] % (Auto) (units ( unknown) date) unknown) (unknown) (no (unknown) (unknown) Monocytes % (units (un known) date) (Manual) 1.0 L unknown) (unknown) (no (unknown) (unknown) Monocytes % (units (un known) date) (Manual) unknown) (unknown) (no (unknown) (unknown) Must include vital (units (unknown) date) signs, unknown) cardiopulmonary exam, capillary refill, peripheral (unknown) (no (unknown) (unknown) Narrative (units (unkn own) date) unknown) (unknown) (no (unknown) (unknown) Narrative: (units (unk nown) date) unknown) (unknown) (no (unknown) (unknown) Neck: supple, full (units (unknown) date) ROM, no JVD, unknown) central line in place on the right side (unknown) (no (unknown) (unknown) Neuro: Sedated. (units (unknown) date) Speech clear and unknown) coherent. (unknown) (no (unknown) (unknown) Neut % (Auto) Not (units (unknown) date) Reportable unknown) (unknown) (no (unknown) (unknown) Neut % (Auto) (units ( unknown) date) unknown) (unknown) (no (unknown) (unknown) Neutrophils # (units ( unknown) date) (Manual) [address] H unknown) (unknown) (no (unknown) (unknown) Neutrophils # (units ( unknown) date) (Manual) unknown) (unknown) (no (unknown) (unknown) Objective (units (unkn own) date) unknown) (unknown) (no (unknown) (unknown) Oxygen Delivery (units (unknown) date) Method Room Air unknown) Room Air (unknown) (no (unknown) (unknown) Oxygen Delivery (units (unknown) date) Method Room Air unknown) (unknown) (no (unknown) (unknown) Oxygen Delivery (units (unknown) date) Method unknown) (unknown) (no (unknown) (unknown) POA. (units (unkno wn) date) unknown) (unknown) (no (unknown) (unknown) PT 18.9 H (units (unkn own) date) unknown) (unknown) (no (unknown) (unknown) PT (units (unkno wn) date) unknown) (unknown) (no (unknown) (unknown) Patient History (units (unknown) date) unknown) (unknown) (no (unknown) (unknown) Patient is (units (unk nown) date) admitted to the unknown) inpatient intensive care service due to the severity (unknown) (no (unknown) (unknown) Patient is on the (units (unknown) date) severe sepsis unknown) protocol in the ICU and his pressures dropped (unknown) (no (unknown) (unknown) Patient: (units (unkno wn) date) PhyliciaPascual Robert unknown) MR#: (unknown) (no (unknown) (unknown) Penicillins (units (un known) date) Allergy Rash unknown) Verified 01/31/22 19:12 (unknown) (no (unknown) (unknown) Per the ED (units (unk nown) date) provider after unknown) speaking to the urologist this was placed sometime in (unknown) (no (unknown) (unknown) Plt Count 156 (units ( unknown) date) unknown) (unknown) (no (unknown) (unknown) Plt Count (units (unkn own) date) unknown) (unknown) (no (unknown) (unknown) Potassium 3.6 (units ( unknown) date) unknown) (unknown) (no (unknown) (unknown) Potassium (units (unkn own) date) unknown) (unknown) (no (unknown) (unknown) Procalcitonin 4.70 (units (unknown) date) H unknown) (unknown) (no (unknown) (unknown) Procalcitonin (units ( unknown) date) unknown) (unknown) (no (unknown) (unknown) Provider: (units (unkn own) date) Modesta Thompson unknown) (unknown) (no (unknown) (unknown) Psyche: normal (units (unknown) date) mood and affect. unknown) (unknown) (no (unknown) (unknown) Pulse Oximetry 100 (units (unknown) date) unknown) (unknown) (no (unknown) (unknown) Pulse Oximetry 81 (units (unknown) date) L unknown) (unknown) (no (unknown) (unknown) Pulse Oximetry 84 (units (unknown) date) L unknown) (unknown) (no (unknown) (unknown) Pulse Oximetry 92 (units (unknown) date) 77 L unknown) (unknown) (no (unknown) (unknown) Pulse Oximetry 94 (units (unknown) date) unknown) (unknown) (no (unknown) (unknown) Pulse Oximetry 96 (units (unknown) date) unknown) (unknown) (no (unknown) (unknown) Pulse Oximetry 97 (units (unknown) date) 95 unknown) (unknown) (no (unknown) (unknown) Pulse Oximetry 97 (units (unknown) date) 96 unknown) (unknown) (no (unknown) (unknown) Pulse Oximetry 98 (units (unknown) date) 95 unknown) (unknown) (no (unknown) (unknown) Pulse Oximetry 98 (units (unknown) date) 97 unknown) (unknown) (no (unknown) (unknown) Pulse Oximetry 98 (units (unknown) date) unknown) (unknown) (no (unknown) (unknown) Pulse Oximetry 99 (units (unknown) date) unknown) (unknown) (no (unknown) (unknown) Pulse Oximetry (units (unknown) date) unknown) (unknown) (no (unknown) (unknown) Pulse Rate 117 H (units (unknown) date) 124 H unknown) (unknown) (no (unknown) (unknown) Pulse Rate 118 H (units (unknown) date) 67 unknown) (unknown) (no (unknown) (unknown) Pulse Rate 119 H (units (unknown) date) 120 H unknown) (unknown) (no (unknown) (unknown) Pulse Rate 119 H (units (unknown) date) unknown) (unknown) (no (unknown) (unknown) Pulse Rate 122 H (units (unknown) date) 116 H unknown) (unknown) (no (unknown) (unknown) Pulse Rate 122 H (units (unknown) date) unknown) (unknown) (no (unknown) (unknown) Pulse Rate 124 H (units (unknown) date) 139 H unknown) (unknown) (no (unknown) (unknown) Pulse Rate 128 H (units (unknown) date) unknown) (unknown) (no (unknown) (unknown) Pulse Rate 143 H (units (unknown) date) unknown) (unknown) (no (unknown) (unknown) Pulse Rate 144 H (units (unknown) date) unknown) (unknown) (no (unknown) (unknown) Pulse Rate 150 H (units (unknown) date) 170 H unknown) (unknown) (no (unknown) (unknown) Pulse Rate 156 H (units (unknown) date) unknown) (unknown) (no (unknown) (unknown) Pulse Rate 162 H (units (unknown) date) unknown) (unknown) (no (unknown) (unknown) Pulse Rate (units (unk nown) date) unknown) (unknown) (no (unknown) (unknown) RBC 4.66 (units (unkno wn) date) unknown) (unknown) (no (unknown) (unknown) RBC Morphology See (units (unknown) date) below unknown) (unknown) (no (unknown) (unknown) RBC Morphology (units (unknown) date) unknown) (unknown) (no (unknown) (unknown) RBC (units (unkno wn) date) unknown) (unknown) (no (unknown) (unknown) RDW 14.0 (units (unkno wn) date) unknown) (unknown) (no (unknown) (unknown) RDW (units (unkno wn) date) unknown) (unknown) (no (unknown) (unknown) ROS: Yes (units (unkno wn) date) unobtainable due to unknown) endotracheal tube (unknown) (no (unknown) (unknown) Resp: Ventilated. (units (unknown) date) Tachypneic, Lungs unknown) CTA, non-labored breathing (unknown) (no (unknown) (unknown) Respiratory Rate 0 (units (unknown) date) L unknown) (unknown) (no (unknown) (unknown) Respiratory Rate (units (unknown) date) 22 unknown) (unknown) (no (unknown) (unknown) Respiratory Rate (units (unknown) date) 25 H 42 H unknown) (unknown) (no (unknown) (unknown) Respiratory Rate (units (unknown) date) 25 H unknown) (unknown) (no (unknown) (unknown) Respiratory Rate (units (unknown) date) 30 H unknown) (unknown) (no (unknown) (unknown) Respiratory Rate (units (unknown) date) 31 H unknown) (unknown) (no (unknown) (unknown) Respiratory Rate (units (unknown) date) 35 H unknown) (unknown) (no (unknown) (unknown) Respiratory Rate (units (unknown) date) 37 H unknown) (unknown) (no (unknown) (unknown) Respiratory Rate (units (unknown) date) 39 H 41 H unknown) (unknown) (no (unknown) (unknown) Respiratory Rate (units (unknown) date) 40 H unknown) (unknown) (no (unknown) (unknown) Respiratory Rate (units (unknown) date) 43 H unknown) (unknown) (no (unknown) (unknown) Respiratory Rate (units (unknown) date) 48 H 51 H unknown) (unknown) (no (unknown) (unknown) Respiratory Rate (units (unknown) date) unknown) (unknown) (no (unknown) (unknown) Result Diagrams: (units (unknown) date) unknown) (unknown) (no (unknown) (unknown) Review of Systems (units (unknown) date) unknown) (unknown) (no (unknown) (unknown) SARS-CoV-2 (PCR) (units (unknown) date) Negative unknown) (unknown) (no (unknown) (unknown) SARS-CoV-2 (PCR) (units (unknown) date) unknown) (unknown) (no (unknown) (unknown) Safety + (units (unkno wn) date) Behavioral: unknown) (unknown) (no (unknown) (unknown) Seg Neutrophils % (units (unknown) date) 82.0 H unknown) (unknown) (no (unknown) (unknown) Seg Neutrophils % (units (unknown) date) unknown) (unknown) (no (unknown) (unknown) Septic Shock (units (u nknown) date) Criteria unknown) (unknown) (no (unknown) (unknown) Septic Shock (units (u nknown) date) Determination. the unknown) patient has been screened and (unknown) (no (unknown) (unknown) Septic shock (units (u nknown) date) associated with unknown) pyelonephritis due to likely a retained and (unknown) (no (unknown) (unknown) Severe Sepsis (units ( unknown) date) Criteria as 2329 unknown) (unknown) (no (unknown) (unknown) Severe Sepsis (units ( unknown) date) Determination. the unknown) patient has been screened and (unknown) (no (unknown) (unknown) Signed (units (unkno wn) date) By:<Electronically unknown) signed by Modesta Thompson> (unknown) (no (unknown) (unknown) Skin: no lesions (units (unknown) date) or rashes, dry and unknown) intact (unknown) (no (unknown) (unknown) Smoking Status (units (unknown) date) Never smoker unknown) (unknown) (no (unknown) (unknown) Social History: (units (unknown) date) unknown) (unknown) (no (unknown) (unknown) Sodium 135 L (units (u nknown) date) unknown) (unknown) (no (unknown) (unknown) Sodium (units (unkno wn) date) unknown) (unknown) (no (unknown) (unknown) Substance Use Type (units (unknown) date) does not use unknown) (unknown) (no (unknown) (unknown) Surrogate decision (units (unknown) date) maker is in unknown) patient?s record: Yes (unknown) (no (unknown) (unknown) Temperature 103.5 (units (unknown) date) F H unknown) (unknown) (no (unknown) (unknown) Temperature 103.8 (units (unknown) date) F H unknown) (unknown) (no (unknown) (unknown) Temperature 98.3 F (units (unknown) date) unknown) (unknown) (no (unknown)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 (unknown) (no (unknown) (unknown) <=1 (units (unkno wn) date) unknown) (unknown) (no (unknown) (unknown) <=16 (units (unkno wn) date) unknown) (unknown) (no (unknown) (unknown) <=20 (units (unkno wn) date) unknown) (unknown) (no (unknown) (unknown) <=4 (units (unkno wn) date) unknown) (unknown) (no (unknown) (unknown) 16 (units (unkno wn) date) unknown) (unknown) (no (unknown) (unknown) 4 (units (unkno wn) date) unknown) (unknown) (no (unknown) (unknown) ESCCOLEscherichia (units (unknown) date) coli unknown) (unknown) (no (unknown) (unknown) No Further Workup (units (unknown) date) unknown) Result panel 59 (unknown) (no (unknown) (unknown) (no value) (units (unk nown) date) unknown) (unknown) (no (unknown) (unknown) CEDAR P RN (units (unk nown) date) unknown) (unknown) (no (unknown) (unknown) ESCCOLEscherichia (units (unknown) date) coli unknown) (unknown) (no (unknown) (unknown) Gram negative (units ( unknown) date) bacilli unknown) (unknown) (no (unknown) (unknown) Identification and (units (unknown) date) Sensitivity to unknown) Follow (unknown) (no (unknown) (unknown) In Both Anaerobic (units (unknown) date) and Aerobic Bottles unknown) Result panel 60 (unknown) (no (unknown) (unknown) (no value) (units (unk nown) date) unknown) (unknown) (no (unknown) (unknown) CEDAR P RN (units (unk nown) date) unknown) (unknown) (no (unknown) (unknown) GNBGram negative (units (unknown) date) bacilli unknown) (unknown) (no (unknown) (unknown) Gram negative (units ( unknown) date) bacilli unknown) (unknown) (no (unknown) (unknown) In Both (units (unkno wn) date) Anaerobic and unknown) Aerobic Bottles (unknown) (no (unknown) (unknown) Refer to (units (unkno wn) date) Previous Culture unknown) for Susceptibility Report Result panel 61 (unknown) (no (unknown) (unknown) (no value) (units (unk nown) date) unknown) (unknown) (no (unknown) (unknown) CEDAR P RN (units (unk nown) date) unknown) (unknown) (no (unknown) (unknown) ESCCOLEscherichia (units (unknown) date) coli unknown) (unknown) (no (unknown) (unknown) Gram negative (units ( unknown) date) bacilli unknown) (unknown) (no (unknown) (unknown) In Both Anaerobic (units (unknown) date) and Aerobic Bottles unknown) (unknown) (no (unknown) (unknown) Sensitivity to (units (unknown) date) Follow unknown) Result panel 62 (unknown) (no date) (unknown) (unknown) 3.0 mg/dl (unkn own) (unknown) (no date) (unknown) (unknown) 3.0 mg/dl (unkn own) Result panel 63 (unknown) (no (unknown) (unknown) (no value) (units (unk nown) date) unknown) (unknown) (no (unknown) (unknown) CEDAR P RN (units (unk nown) date) unknown) (unknown) (no (unknown) (unknown) ESCCOLEscherichia (units (unknown) date) coli unknown) (unknown) (no (unknown) (unknown) Gram negative (units ( unknown) date) bacilli unknown) (unknown) (no (unknown) (unknown) In Both Anaerobic (units (unknown) date) and Aerobic Bottles unknown) (unknown) (no (unknown) (unknown) Refer to Previous (units (unknown) date) Culture for unknown) Susceptibility Report Result panel 64 (unknown) (no (unknown) (unknown) (no value) (units (unk nown) date) unknown) (unknown) (no (unknown) (unknown) >=128 (units (unkno wn) date) unknown) (unknown) (no (unknown) (unknown) >=32 (units (unkno wn) date) unknown) (unknown) (no (unknown) (unknown) <=0.12 (units (unkno wn) date) unknown) (unknown) (no (unknown) (unknown) <=0.25 (units (unkno wn) date) unknown) (unknown) (no (unknown) (unknown) <=0.5 (units (unkno wn) date) unknown) (unknown) (no (unknown) (unknown) <=1 (units (unkno wn) date) unknown) (unknown) (no (unknown) (unknown) <=2 (units (unkno wn) date) unknown) (unknown) (no (unknown) (unknown) <=20 (units (unkno wn) date) unknown) (unknown) (no (unknown) (unknown) <=4 (units (unkno wn) date) unknown) (unknown) (no (unknown) (unknown) 16 (units (unkno wn) date) unknown) (unknown) (no (unknown) (unknown) 4 (units (unkno wn) date) unknown) (unknown) (no (unknown) (unknown) 8 (units (unkno wn) date) unknown) (unknown) (no (unknown) (unknown) CEDAR P RN (units (unk nown) date) unknown) (unknown) (no (unknown) (unknown) ESCCOLEscherichia (units (unknown) date) coli unknown) (unknown) (no (unknown) (unknown) Gram negative (units ( unknown) date) bacilli unknown) (unknown) (no (unknown) (unknown) In Both Anaerobic (units (unknown) date) and Aerobic Bottles unknown) (unknown) (no (unknown) (unknown) No Further Workup (units (unknown) date) unknown) Social History No information. Vital Signs No information.
[2022-04-30 18:19] LABS: CLARITY,URINE CLOUDY (CLEAR)
[2022-04-30 18:21] LABS: BACTERIA,URINE Many /HPF (None Seen); RBC,URINE 0-5 /HPF (0-5); SQUAMOUS EPITHELIAL CELL,UR NONE SEEN (<= Few); WBC,URINE >25 /HPF (0-3)
[2022-04-30] MEDS ORDERED: cefTRIAXone 1 GM VIAL IVP STA (18:30)
[2022-04-30 18:47] LABS: B. PARAPERTUSSIS- RESP PCR PAN NOT DETECTED; B. PERTUSSIS- RESP PCR PANEL NOT DETECTED; C. PNEUMONIAE- RESP PCR PANEL NOT DETECTED; CORONAVIRUS 229E-RESP PCR NOT DETECTED; CORONAVIRUS HKU1-RESP PCR NOT DETECTED; CORONAVIRUS NL63-RESP PCR NOT DETECTED; CORONAVIRUS OC43-RESP PCR NOT DETECTED; HUMAN METAPNEUMOVIRUS NOT DETECTED; INFLUENZA A- RESP PCR PANEL NOT DETECTED; INFLUENZA B - RESP PCR PANEL NOT DETECTED; M. PNEUMONIAE- RESP PCR PANEL NOT DETECTED; PARAINFLUENZA VIRUS 1 NOT DETECTED; PARAINFLUENZA VIRUS 2 NOT DETECTED; PARAINFLUENZA VIRUS 3 NOT DETECTED; PARAINFLUENZA VIRUS 4 NOT DETECTED; RHINOVIRUS/ENTEROVIRUS NOT DETECTED; RSV- RESP PCR PANEL NOT DETECTED; SARS-CoV-2 -RESP PCR PANEL NOT DETECTED
[2022-04-30 19:15] VITALS: BP 132/77
--- NOTE | 2022-05-02 14:17 | ED Physician Documentation ---
ED Addendum - Addendum Addendum: 05/02/22 14:16 Urine culture from ED visit completed on 30 April grew an ESBL Pseudomonas. Patient was discharged with a cephalosporin/Keflex. Given ESBL status will change to Cipro which the culture indicates sensitivity to. Nursing staff tasked with notifying patient.
== END 2022-04-30 19:29 | disposition home or self-care (01) ==
LOC: EDUNIT# → ED 16:35
DX: N39.0 Urinary tract infection, site not specified (principal); B96.5 Pseudomonas (aeruginosa) (mallei) (pseudomallei) as the cause of diseases classified elsewhere; R53.1 Weakness; E87.1 Hypo-osmolality and hyponatremia; D72.829 Elevated white blood cell count, unspecified; Z20.822 Contact with and (suspected) exposure to COVID-19
CPT/HCPCS: 36415; 51701; 80053; 81001; 81003; 83690; 83735; 83880; 85025; 86850; 86900; 86901; 87077; 87086; 87181; 87633; 99284

== ENCOUNTER 2022-05-12 17:58 | Outpatient (CLI) | payer MEDICARE, OTHER | END 2022-05-12 17:59 | disposition E | LOC: EMS 17:58 | DX: I46.9 Cardiac arrest, cause unspecified (principal) | CPT/HCPCS: A0425; A0428 ==